=== PATIENT | male | born 1950 | race Caucasian/White ===

== ENCOUNTER 2017-07-14 08:30 | Outpatient (RCR) | payer MEDICARE, OTHER, SELFPAY ==
--- NOTE | 2017-03-30 15:08 | HP.PTEVAL_ITS ---
Patient's Visit Information LILIYA BOCANEGRA is a 67 year old M referred to Physical Therapy by Out of Town Doctor NAFISA GRAFF with a diagnosis of RIGHT LUMBAR RADICULOPATHY , LUMBAR FACET ARTHROPATHY. Date of Evaluation: 03/30/17 Physical Therapist: Tushar Hinson PT, - Visit Plan Frequency: 1x/Week Duration: 4 Weeks Plan: DLS,POSTUTAL EX'S,LE FLEXABLITY,STRENGTHENING FOR HEP - Subjective Subjective: This 67 y/o male presents to physical therapy with lumbar radiculopathy and facet arthrophy. Patient h/o lumbar disctomy/laminectomy 3 times . Patient underwent s/p lumbar fusion with minnie and screws of L-3-5 done October 08 done by at [facility]. Patient d/c to home walking progam,then able to lift 30#. Patient conts to have pain legs left greater to right with diffuse pain.patient did x-rays - looked good. Symptoms sitting,standing ,lidfting. Symptoms better with walking. Patient c/o parathesia/tingling BLE feet worse in left.Patient symptoms worse with carrying something with increasing symptoms with parathesia 1 hour,then gets better.Bowel/bladder good. Sleeping good. Coughing/sneezing -. Prior PT in past.No tuuama. 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 SOCIAL: . HOBBIES : hunting [employer] - Pain Bilateral Back Pain Intensity (Out of 10): 0 Pain Intensity Range: 10 Bilateral Lower Extremity Pain Intensity (Out of 10): 3 Pain Intensity Range: 10 - Objective POSTURE: mild foward posture. NEURO: c/o poarathesia/tingling,reflexes L3-4,L4- 5 1/3,L5-S1 2/3,diminished light touch. GAIT:normal velia reciprocal pattern. FLAXABLITY: hams mod tight. LUMBAR ROM: flexion min/mod loss, extension mod loss,side glides min/mod loss. SYMMTRIES: align. PALAPTION: MILD TENDERNES PARASPINALS. SKIN: incsion well approximate - Special Tests L/S Slump test left side: Negative L/S Slump test right side: Negative L/S Left Straight Leg Raise: Negative L/S Right Straight Leg Raise: Negative - Goals Goal 1:: Independant with HEP Goal Time Frame: 4-6 Weeks Goal 2:: Independant with posture /body mechaniics Goal Time Frame: 4-6 Weeks Goal 3:: Patient decrease leg pain by 50% or greater to improve function. Goal Time Frame: 4-6 Weeks Goal 4:: Patient increase strength of transvers/multifidas to good to improve ADLS and job demands . Goal Time Frame: 4-6 Weeks Goal 5:: Patient be able to perform ADL'S ob demands for function of recovery Goal Time Frame: 4-6 Weeks - Rehabilitation Potential Physical Therapy Diagnosis: This patient underwent s/p lumbar surgery fusion October 2016 with weakness of core muscles and leg weakness left along with pain and parathesia feet thus could benifit from skilled PT Rehabilitation Potential: Good - Anticipated Interventions Patient/Client Instruction: Educate patient on: Condition, Plan of Care For the Purpose of:: To decrease pain, To increase ROM, To improve muscle performance and motor function, To improve ability to perform ADL's, To increase tolerance to activity/condition/position, To improve performance and independence with ADL's, To improve ability of physical actions for home/ community/work/leisure, To improve health of tissue, To decrease soft tissue restriction, To increase flexibility/ROM, To improve self management, To prevent re-injury, To improve ability to perform tasks related to life management Therapeutic Exercise to Include: Strength training, Body mechanics, Postural training, Flexibilty training, Kraig Exercises For the Purpose of:: To decrease pain, To increase ROM, To improve muscle performance and motor function, To improve ability to perform ADL's, To improve performance and independence with ADL's, To improve ability of physical actions for home/community/work/leisure, To decrease soft tissue restriction, To increase flexibility/ROM, To improve self management, To prevent re-injury, To improve ability to perform tasks related to life management IF ES: Yes Cryotherapy (ice pack, ice massage): Yes Thermo therapy (hot pack): Yes For the Purpose of:: To decrease pain, To decrease swelling/inflammation, To improve nutrient delivery to tissue, To increase oxygenation perfusion Thank you for the opportunity to evaluate your patient. For Medicare and Medicare HMO plans, please review the plan of care and approve it. It will need to be FAXED BACK to us at [phone] for Medicare purposes. Please let me know if there are questions or concerns regarding this plan of care. Physician Signature: Date:
--- NOTE | 2017-07-14 09:42 | HP.PTDCSUM_ITS ---
HP - PT D/C Summary It has been my pleasure to treat LILIYA BOCANEGRA under orders from [facility] of [facility] Doctor, NAFISA GRAFF for the diagnosis of RIGHT LUMBAR RADICULOPATHY , LUMBAR FACET ARTHROPATHY for a total of 6 visit(s). Discharge Date: Please see the following information for a summary of their discharge status. - Subjective Subjective: Doing well ..Doing ex's on own. Able to get back to prior level of activity. - Pain Bilateral Back Pain Intensity (Out of 10): 0 Bilateral Lower Extremity Pain Intensity (Out of 10): 0 - Objective Objective/Function: POSTURE: WFL. GAIT: NORMAL ARACELY. MMT: QUADS/HAMS 4/5, HIP 4-/5,ANKLE 5/5. LUMBAR ROM: FLEXION MOD LOSS,EXT MOD LOSS. FLEXABLITY:MIN / MOD LOSS HAM. INSTRUCTED HEP MODIFIED AT HOME. WITH APPROPRIATE INSTRUCTION - Goals Goal 1:: Independant with HEP Goal Progress: Goal Met Goal 2:: Independant with posture /body mechaniics Goal Progress: Goal Met Goal 3:: Patient decrease leg pain by 50% or greater to improve function. Goal Progress: Goal Met Goal 4:: Patient increase strength of transvers/multifidas to good to improve ADLS and job demands . Goal Progress: Goal Met Goal 5:: Patient be able to perform ADL'S ob demands for function of recovery Goal Progress: Goal Met - Plan Plan: D/C - D/C Information If there are questions or concerns regarding this patient's physical therapy, please feel free to call me at [phone]. Thank you for the referral of this patient. Sincerely, Tushar Hinson, PT,
== END 2017-07-14 19:00 | disposition home or self-care (01) ==
LOC: PT 08:30
PROVIDERS: Family Provider Internal Medicine; PCP Internal Medicine
DX: M54.16 Radiculopathy, lumbar region (principal); M12.88 Other specific arthropathies, not elsewhere classified, other specified site
CPT/HCPCS: 97110; 97162; 97530; G8978; G8979; G8980

== ENCOUNTER 2018-02-01 19:03 | Emergency (ER) | payer MEDICARE, OTHER, SELFPAY ==
[2018-02-01 19:04] VITALS: BP 135/85; PULSE 60; RESP 12; TEMP 36.6; O2SAT 96; BMI 25.7
[2018-02-01 19:18] VITALS: BP 132/80; PULSE 65; RESP 12; O2SAT 97
--- NOTE | 2018-02-01 19:34 | EKG12_ITS ---
Test Reason : CP Blood Pressure : / mmHG Vent. Rate : 059 BPM Atrial Rate : 059 BPM P-R Int : 150 ms QRS Dur : 096 ms QT Int : 436 ms P-R-T Axes : 053 065 036 degrees QTc Int : 431 ms Sinus bradycardia Otherwise normal ECG Confirmed by MARIYA DUENAS, STANLEY ([id number]), news copy editor MURRAY CHAPARRO ([id number]) on 02/07/2018 3:38:29 PM Referred By: JADON Confirmed By:STANLEY MERAZ MD
--- NOTE | 2018-02-01 19:40 | RAD_ITS ---
STUDY: X-RAY CHEST REASON FOR EXAM: Male, 67 years old. Chest pain TECHNIQUE: PA and lateral views of the chest. COMPARISON: October 26, 2013 FINDINGS: There are monitoring devices. The lungs are clear. There is stable elevation of the right hemidiaphragm.. There is no demonstrated pleural abnormality. Normal size heart. Normal mediastinum and dora. Normal visualized pulmonary arteries. Normal visualized aortic arch and descending thoracic aorta. Normal visualized thoracic spine. There are stable left rib fractures. There is no demonstrated abnormality of the visualized soft tissue structures of the upper abdomen. RAD/Chest PA and Lateral IMPRESSION: Degenerative changes, as described above. No demonstrated acute cardiopulmonary process. Electronically Signed: Oliver Infante MD at 20:18 EDT , Service support ,
[2018-02-01 19:49] LABS: Absolute Lymphocyte Count 1.67 X10^3/ul (0.83-4.51); Absolute Neutrophil Count 2.8 X10^3/uL (2.0-7.7); Basophil# 0.13 X10^3/uL; Basophil% 2.4 % (0-1); Eosinophil# 0.16 X10^3/uL; Hematocrit 41.2 % (40-54); Lymphocyte # 1.67 X10^3/ul (4.0); Lymphocyte % 30.8 % (19-41); Mean Corpuscular Hgb 30.8 pg (27.0-32.0); Mean Corpuscular Volume 90.5 fL (80-94); Mean Platelet Vol. 9.4 fl (6.2-12.0); Monocyte# 0.62 X10^3/uL; Monocyte% 11.4 % (0-10); Neutrophil # 2.84 X10^3/uL (2.7-7.7); Neutrophil % 52.4 % (47-70); Platelet Count 230 K/mm3 (150-450); RBC Distribution Width CV 13.2 % (11.6-14.6); RBC Distribution Width SD 43.4 fl (35.1-43.9); Red Blood Count 4.55 M/mm3 (4.6-6.2); White Blood Count 5.4 K/mm3 (4.4-11.0)
[2018-02-01 19:50] LABS: POSITIVE COUNT NO; POSITIVE DIFFERENTIAL NO; POSITIVE MORPHOLOGY NO
[2018-02-01 19:56] LABS: International Normalized Ratio 0.9; Prothrombin Time (Protime)PT. 12.5 SECONDS (11.7-14.9)
[2018-02-01 19:57] LABS: Partial Thromboplast Time 29.1 Seconds (24.1-36.2)
--- NOTE | 2018-02-01 20:02 | ED.VISSUMM ---
- ER Visit Summary Date of Service: 02/01/18 Chief Complaint: Chest pain History of Present Illness: The patient is a 67 M intermittent chest tightness since yesterday. Pain would travel to the right and then to the left. No pain in the arms. No dyspnea, nausea, diaphoresis. States symptoms last for 2 hours and go away. Last onset of symptoms was 3 PM, lasting 2 hours. Patient takes baby aspirins in the morning, states prior to arrival took a full dose aspirin along with 2 nitroglycerin. Intermittent lightheaded symptoms since yesterday. No syncopal episodes. No recent vomiting or diarrhea. History of coronary disease with end STEMI x2, last was more than 5 years ago. 2 stents. Followed by [facility], Dr. Auguste. Stents were placed at [facility]. No recent travel, surgery, or immobilizations. No history of PE or DVT. History of hypercholesterolemia. No diabetes or hypertension. Currently symptoms are resolved. Physical Examination: General: Alert and oriented ?3, no acute distress HEENT: Normocephalic, atraumatic. Moist mucosa membranes Neck: supple, nontender. Cardiovascular: Regular rate and rhythm, no murmurs Respiratory: Normal breath sounds, symmetric, no distress Abdomen: Soft, nontender, nondistended Extremities: Nontender, no edema, pulses intact ?4 Neuro: no focal neurological deficits. Test Results: EKG: Sinus rate of [address] or T wave changes. Hemoglobin 14. Creatinine 0.85. Troponin #1 0.015. Troponin II 0.052. INR 0.9. PTT 29.1. Chest x-ray negative. Emergency Department Course and Treatment: Patient symptom-free on arrival. EKG sinus rhythm no ST changes. Patient took aspirin at home. Initial cardiac workup negative. Patient does have risk factors, I discussed with him falls in the moderate risk range. Recommended admission for further evaluation. However he states he did not want to stay in the hospital. However he was in agreement's for repeat troponin. 3-hour draw was obtained, results was elevated indeterminate range at 0.052. We discussed with the patient, he remained symptom-free. He was given Lovenox. Heart scores a 6. PAULA score is 5. He would like to go to [facility] where his previous cardiac cath and stents have been placed. Currently on page for discussion. Discussed with patient account liaison Dr. Gongora who accepts the transfer. Treatment Plan: [] Disposition: Plan transfer Impression: 1. Anginal chest pain 2. Elevated troponin This note was generated with [employer] dictation software. It may contain incorrect words, spelling, and punctuation that were not noted in review of the chart prior to signing ED Disposition - Plan for ED Patient: Disposition: [facility] - Main Chief Complaint: Chest Pain Diagnosis: Anginal chest pain at rest, Elevated troponin Referrals: Aquiles Rosado MD [Primary Care Provider] -
[2018-02-01 20:25] LABS: Anion Gap 7 (5-15); BUN 15 mg/dL (7-18); BUN/Creat Ratio 17.7 RATIO (10-20); Calcium,Total 8.9 mg/dL (8.5-10.1); Chloride 108 mmol/L (98-107); Creatinine, Serum 0.85 mg/dL (0.70-1.30); EST Glomerular Filtration Rate 96 mL/min (>60); Est Glom Filt Rate - Afr Amer 117 mL/min (>60); Estimated Creatinine Clearance 97.92 ml/min; Glucose 83 mg/dL (74-106); Sodium Level 140 mmol/L (136-145)
[2018-02-01 20:30] VITALS: BP 121/77; PULSE 62; RESP 15; O2SAT 96
[2018-02-01 21:34] VITALS: BP 125/72; PULSE 57; RESP 15; O2SAT 96
[2018-02-01 22:26] VITALS: BP 134/77; PULSE 55; RESP 16; O2SAT 96
[2018-02-01] MEDS: Enoxaparin 100 MG/ML Syringe 90 MG SC (22:48)
[2018-02-01 22:49] VITALS: BP 118/74; PULSE 57; RESP 18; O2SAT 99
--- NOTE | 2018-02-01 23:44 | NURSING ---
ACCEPTED TO [facility] BED J53 BED REPORT
[2018-02-02 00:32] VITALS: BP 132/85; PULSE 73; RESP 15; O2SAT 99
== END 2018-02-02 00:34 | disposition short-term general hospital (02) ==
PROVIDERS: Emergency Provider Emergency Medicine; Family Provider Family Medicine; PCP Family Medicine
DX: I25.119 Atherosclerotic heart disease of native coronary artery with unspecified angina pectoris (principal); R07.89 Other chest pain; R79.89 Other specified abnormal findings of blood chemistry; I25.2 Old myocardial infarction; E78.00 Pure hypercholesterolemia, unspecified; Z95.5 Presence of coronary angioplasty implant and graft; Z79.82 Long term (current) use of aspirin; Z79.899 Other long term (current) drug therapy
CPT/HCPCS: 71046; 80048; 84484; 85025; 85610; 85730; 93005; 96372; 99285; A4216

== ENCOUNTER 2018-02-07 19:23 | Emergency (ER) | payer OTHER, MEDICARE, SELFPAY ==
[2018-02-07] VITALS (8 sets, daily range): BP systolic 111–146; BP diastolic 65–94; PULSE 59–67; RESP 16–18; TEMP 37; O2SAT 94–100; BMI 27.7
--- NOTE | 2018-02-07 19:31 | ED.RN ---
RN CALLED FOR EKG, PULLED OLD EKGS FOR
--- NOTE | 2018-02-07 20:00 | EKG12_ITS ---
Test Reason : CP Blood Pressure : / mmHG Vent. Rate : 065 BPM Atrial Rate : 065 BPM P-R Int : 148 ms QRS Dur : 096 ms QT Int : 428 ms P-R-T Axes : 045 046 046 degrees QTc Int : 445 ms Normal sinus rhythm Normal ECG Confirmed by SHELLEY DUENAS, NELLI ([id number]), editor trade journal MURRAY CHAPARRO ([id number]) on 02/10/2018 1:35:52 PM Referred By: SHANEL Confirmed By:NELLI ROSA MD
--- NOTE | 2018-02-07 20:09 | RAD_ITS ---
STUDY: X-RAY CHEST REASON FOR EXAM: Male, 67 years old. Chest pain, status post stent placement. TECHNIQUE: February 01, 2018. COMPARISON: None. FINDINGS: The lungs are clear and expanded. There is chronic scarring of the right costophrenic angle. There is no pleural effusion. Normal size heart. Normal mediastinum and dora. Normal visualized pulmonary arteries. Normal visualized aortic arch and descending thoracic aorta. Old healed left rib fractures are noted. Soft tissues are unremarkable. RAD/Chest 1 View (Portable) IMPRESSION: No acute process. Electronically Signed: Jes Contreras MD at 20:53 EDT Tel , Service support ,
[2018-02-07 20:20] LABS: Absolute Lymphocyte Count 1.41 X10^3/ul (0.83-4.51); Absolute Neutrophil Count 2.3 X10^3/uL (2.0-7.7); Basophil% 2.2 % (0-1); Eosinophil# 0.26 X10^3/uL; Eosinophils% 5.7 % (0-5); Hematocrit 41.2 % (40-54); Hemoglobin 14.1 g/dl (13.0-16.5); Lymphocyte # 1.41 X10^3/ul (4.0); Lymphocyte % 30.7 % (19-41); Mean Corp Hgb Conc 34.2 g/gl (32-36); Mean Corpuscular Volume 90.5 fL (80-94); Mean Platelet Vol. 9.4 fl (6.2-12.0); Monocyte# 0.53 X10^3/uL; Monocyte% 11.5 % (0-10); Neutrophil # 2.29 X10^3/uL (2.7-7.7); Neutrophil % 49.9 % (47-70); POSITIVE COUNT NO; POSITIVE DIFFERENTIAL NO; POSITIVE MORPHOLOGY NO; Platelet Count 217 K/mm3 (150-450); RBC Distribution Width CV 13.4 % (11.6-14.6); RBC Distribution Width SD 43.8 fl (35.1-43.9); Red Blood Count 4.55 M/mm3 (4.6-6.2); White Blood Count 4.6 K/mm3 (4.4-11.0)
[2018-02-07] MEDS: 0.9% Normal Saline 1,000 ML 150 ML IV (20:24)
[2018-02-07] MEDS: Aspirin 81 MG TAB.CHEW 324 MG PO (20:24)
[2018-02-07 20:31] LABS: Anion Gap 7 (5-15); BUN 19 mg/dL (7-18); BUN/Creat Ratio 20.7 RATIO (10-20); Chloride 106 mmol/L (98-107); Creatinine, Serum 0.92 mg/dL (0.70-1.30); EST Glomerular Filtration Rate 88 mL/min (>60); Est Glom Filt Rate - Afr Amer 106 mL/min (>60); Estimated Creatinine Clearance 82.65 ml/min; Glucose 81 mg/dL (74-106); Sodium Level 140 mmol/L (136-145)
[2018-02-07] MEDS: Nitroglycerin Oint 1 INCH PACKET TRANSDERM. (20:35)
--- NOTE | 2018-02-07 21:14 | ED.DCSUM_ITS ---
- ER Visit Summary Date of Service: 02/07/18 Chief Complaint: [Chest pain] History of Present Illness: The patient is a 67 M [presents with complaint of chest pain that started at 9 AM this morning. Patient states that pain initially started while at rest. Patient took a nitroglycerin which immediately resolved his discomfort however an hour later it came back. Patient took a second nitroglycerin which again resolved his pain. This afternoon patient started having pain once again and he took 3 nitro at home but it did not completely resolve his pain so he presents to the ER for further evaluation. Patient tells me that he did have a cardiac stent placed 1 week ago at the [facility]. Patient has had one other prior stent as well. Patient does have a history of coronary artery disease, hypertension, high cholesterol. Patient denies recent travel or surgery.] Physical Examination: [HEENT-PERRLA, EOMI. Cranial nerves II through XII grossly intact. TMs clear. Mucous membranes moist. No adenopathy. Cardiovascular-regular rate and rhythm without murmur or ectopy Lungs-clear to auscultation, chest wall stable without crepitus or subcu emphysema Abdomen-normoactive bowel sounds, soft, nontender, no rebound or rigidity, no peritoneal signs. Extremities-intact ?4, normal range of motion, normal pulses, atraumatic] Test Results: [EKG obtained arrival shows sinus rhythm with a ventricular rate of 65 bpm with no acute ST segment changes.] CBC with differential was normal. Chemistries unremarkable. Troponin was slightly elevated at 0.066 Emergency Department Course and Treatment: [And received aspirin in the emergency department as well as 1 sublingual nitroglycerin tablet which resolved his pain and he had an inch of Nitropaste placed to the anterior chest wall.] Treatment Plan: [Patient will require admission however he is requesting transfer to [facility] where he had his stent placed 1 week ago. Plan will be discussed case with [facility] and transfer patient to their facility] Disposition: [Transfer] Impression: [Chest pain-rule out acute coronary syndrome] This note was generated with [employer] dictation software. It may contain incorrect words, spelling, and punctuation that were not noted in review of the chart prior to signing ED Disposition - Plan for ED Patient: Chief Complaint: Chest Pain Referrals: Aquiles Rosado MD [Primary Care Provider] -
== END 2018-02-07 22:58 | disposition short-term general hospital (02) ==
LOC: ED 20:04
PROVIDERS: Emergency Provider Emergency Medicine; Family Provider Family Medicine; PCP Family Medicine
DX: R07.9 Chest pain, unspecified (principal); I25.10 Atherosclerotic heart disease of native coronary artery without angina pectoris; I10 Essential (primary) hypertension; E78.00 Pure hypercholesterolemia, unspecified; Z95.5 Presence of coronary angioplasty implant and graft; Z79.82 Long term (current) use of aspirin; Z79.899 Other long term (current) drug therapy
CPT/HCPCS: 71045; 80048; 84484; 85025; 93005; 96360; 96361; 99285; J7030; A4216

== ENCOUNTER 2018-03-22 14:51 | Emergency (ER) | payer OTHER, MEDICARE, SELFPAY ==
[2018-03-22 14:52] VITALS: BP 158/89; BP 164/106; PULSE 60; PULSE 65; RESP 14; RESP 18; TEMP 36.8; O2SAT 98; O2SAT 99; BMI 25.9
--- NOTE | 2018-03-22 15:10 | RAD_ITS ---
STUDY: X-RAY CHEST REASON FOR EXAM: Male, 68 years old. Chest pain. TECHNIQUE: Single AP portable view of the chest. COMPARISON: 10/26/2013, 02/01/2018, 02/07/2018.. FINDINGS: The lungs are clear and expanded. Stable chronic scarring in the right costophrenic angle. No gross effusions. Normal size heart. Normal mediastinum and dora. Normal visualized pulmonary arteries. Normal visualized aortic arch and descending thoracic aorta. Normal visualized thoracic spine. Normal visualized ribs, clavicles, and shoulders. Old healed left rib fractures are noted. Soft tissues are unremarkable. RAD/Chest 1 View (Portable) IMPRESSION: No acute process. Electronically Signed: Charanjit Wilks MD at 16:10 EST , Service support ,
--- NOTE | 2018-03-22 15:10 | EKG12_ITS ---
Test Reason : CP Blood Pressure : / mmHG Vent. Rate : 063 BPM Atrial Rate : 063 BPM P-R Int : 144 ms QRS Dur : 098 ms QT Int : 422 ms P-R-T Axes : 053 062 048 degrees QTc Int : 431 ms Normal sinus rhythm Normal ECG Confirmed by MARIYA DUENAS, STANLEY ([id number]), senior editor MURRAY CHAPARRO ([id number]) on 03/25/2018 1:20:11 PM Referred By: JOSELUIS Confirmed By:STANLEY MERAZ MD
[2018-03-22] MEDS: 0.9% Normal Saline 1,000 ML 150 ML IV (15:18)
[2018-03-22] MEDS: Aspirin 81 MG TAB.CHEW 243 MG PO (15:18)
--- NOTE | 2018-03-22 15:20 | ED.DCSUM_ITS ---
- ER Visit Summary Date of Service: 03/22/18 Chief Complaint: Chest pain History of Present Illness: The patient is a 68 M with history of coronary artery disease and a total of 4 stents. He had 2 stents placed in January of this year. Patient presents with a one-week history of intermittent upper abdominal pain with some pressure radiation into the lower sternum. He states these episodes would last approximately half an hour and then spontaneously resolved. They did not seem to be brought on by activity and in fact with exertion he did not have significant symptoms. He has not had shortness of breath. This morning he woke up with pressure across the upper abdomen that has persisted throughout the day. It is not changed with food. It does not change with exertion. Physical Examination: Blood pressure is 164/106, otherwise vitals are normal. Patient sitting upright in bed no acute distress. Head neck unremarkable. Heart is regular rate and rhythm. Lung sounds are clear. There is no reproducible chest wall tenderness. Abdomen is soft with tenderness in epigastric as well as in the right upper quadrant regions. There is no guarding or rebound. Active bowel sounds are noted throughout. Test Results: EKG is sinus at 63 with no sign of acute ischemia. CBC, chemistries, LFTs, and lipase are normal. Troponin is less than 0.015. Portable chest x-ray per my reading shows chronic changes only. Emergency Department Course and Treatment: Patient had taken 1 tab of baby aspirin this morning. He is given an additional 243 mg now. Patient's pain is atypical for cardiac etiology. He will be started on antacid to see if this improves his symptoms. He is to return for worsening symptoms or any concerns. Treatment Plan: [] Disposition: Discharge Impression: 1. Atypical chest pain 2. Epigastric pain This note was generated with [employer] dictation software. It may contain incorrect words, spelling, and punctuation that were not noted in review of the chart prior to signing ED Disposition - Plan for ED Patient: Chief Complaint: Chest Pain Referrals: Aquiles Rosado MD [Primary Care Provider] -
[2018-03-22 15:30] LABS: Absolute Lymphocyte Count 1.36 X10^3/ul (0.83-4.51); Basophil% 1.6 % (0-1); Eosinophil# 0.23 X10^3/uL; Eosinophils% 3.7 % (0-5); Hematocrit 46.3 % (40-54); Hemoglobin 15.5 g/dl (13.0-16.5); Lymphocyte # 1.36 X10^3/ul (4.0); Mean Corp Hgb Conc 33.5 g/gl (32-36); Mean Corpuscular Hgb 30.9 pg (27.0-32.0); Mean Corpuscular Volume 92.2 fL (80-94); Mean Platelet Vol. 9.4 fl (6.2-12.0); Monocyte% 8.1 % (0-10); Neutrophil # 3.98 X10^3/uL (2.7-7.7); Neutrophil % 64.4 % (47-70); POSITIVE COUNT NO; POSITIVE DIFFERENTIAL NO; POSITIVE MORPHOLOGY NO; Platelet Count 242 K/mm3 (150-450); RBC Distribution Width CV 12.9 % (11.6-14.6); RBC Distribution Width SD 43.1 fl (35.1-43.9); Red Blood Count 5.02 M/mm3 (4.6-6.2); White Blood Count 6.2 K/mm3 (4.4-11.0)
[2018-03-22 15:33] LABS: AST(SGOT) 36 U/L (15-37); Alanine Aminotransfer ALT/SGPT 40 U/L (16-61); Albumin, Serum 4.3 g/dL (3.2-5.0); Alkaline Phosphatase 62 U/L (45-117); Anion Gap 7 (5-15); BUN 15 mg/dL (7-18); BUN/Creat Ratio 16.9 RATIO (10-20); Bilirubin, Direct 0.15 mg/dL (0.00-0.30); Chloride 104 mmol/L (98-107); Creatinine, Serum 0.88 mg/dL (0.70-1.30); EST Glomerular Filtration Rate 92 mL/min (>60); Est Glom Filt Rate - Afr Amer 111 mL/min (>60); Estimated Creatinine Clearance 93.32 ml/min; Globulin 3.6 g/dL (2.2-4.2); Glucose 89 mg/dL (74-106); Lipase 131 U/L (73-393); Potassium 3.8 mmol/L (3.5-5.1); Protein, Total 7.9 g/dL (6.4-8.2); Sodium Level 138 mmol/L (136-145)
--- NOTE | 2018-03-22 15:39 | ED.DEP ---
ED Disposition - Plan for ED Patient: Disposition: Home or Assisted Living Chief Complaint: Chest Pain Instructions: ED Chest Pain Atypical Unkn Cause, ED Epigastric Pain UKO Prescriptions: Omeprazole [Prilosec] 20 mg PO DAILY #30 capsule Referrals: Aquiles Rosado MD [Primary Care Provider] - 1 Week
[2018-03-22 15:52] VITALS: BP 162/94; PULSE 67; RESP 18; O2SAT 97
--- NOTE | 2018-03-22 15:52 | ED.RN ---
PT GIVEN WRITTEN AND VERBAL DISCHARGE INSTRUCTIONS ANSD HOME GOING PRESCRIPTIONS. PT VERBALIZES UNDERSTANDING AND DENIES ANY FURTHER QUESTIONS. PT IV D/C AND COVERED WITH 2X2 GAUZE DRESSING AND PAPER TAPE. PT DRESSES SELF AND AMBUALTES OUT OF DEPT BY SELF. PT TO RETURN FOR ANY NEW OR WORSENED SX.
== END 2018-03-22 15:54 | disposition home or self-care (01) ==
PROVIDERS: Emergency Provider Emergency Medicine; Family Provider Family Medicine; PCP Family Medicine
DX: R07.89 Other chest pain (principal); R10.13 Epigastric pain; I25.10 Atherosclerotic heart disease of native coronary artery without angina pectoris; Z95.5 Presence of coronary angioplasty implant and graft; I25.2 Old myocardial infarction; I10 Essential (primary) hypertension; Z87.891 Personal history of nicotine dependence; Z79.82 Long term (current) use of aspirin; Z79.51 Long term (current) use of inhaled steroids; Z79.899 Other long term (current) drug therapy
CPT/HCPCS: 71045; 80048; 80076; 83690; 84484; 85025; 93005; 96360; 99285; J7030; A4216

== ENCOUNTER → 2018-04-04 06:57 | Outpatient (CLI) | payer OTHER, MEDICARE, SELFPAY ==
[2018-03-22 14:52] VITALS: BMI 25.9
--- NOTE | 2018-04-04 07:02 | CT_ITS ---
STUDY: CT MAXILLOFACIAL SINUSES REASON FOR EXAM: Male, 68 years old. Recurrent chronic sinusitis. Nasal drainage. RADIATION DOSAGE (If Supplied By Facility): CTDIvol = ( 33.06 ) mGy, DLP = ( 833.85 ) mGycm TECHNIQUE: The patient was scanned in a multi detector CT scanner. High resolution axial imaging was performed without the administration of intravenous contrast material. Sagittal and coronal images were reconstructed. Individualized dose optimization techniques were used for this CT. COMPARISON: None. FINDINGS: FRONTAL SINUSES: Normal aeration, without mucosal inflammatory disease. ETHMOIDAL SINUSES: Minimal mucosal thickening of the ethmoid sinuses. MAXILLARY SINUSES: Mucosal thickening along the superior medial aspect of the maxillary sinus bilaterally causing compromise of the ostiomeatal complexes. SPHENOIDAL SINUSES: Normal aeration, without mucosal inflammatory disease. There is patency of the bilateral maxillary infundibuli with normal uncinate processes, ethmoid bullae, and hiatus semilunaris. Normal bilateral middle turbinates. Normal bilateral inferior turbinates. Normal midline nasal septum. There is patency of the bilateral nasal airways. The visualized osseous structures are normal. The visualized bilateral orbital contents are normal. The patient is status post right parietal craniotomy. CT/Sinus/Facial Bone IMPRESSION: Mucosal thickening of the ethmoid sinuses and the superior medial aspects of the maxillary sinuses bilaterally. Electronically Signed: Rakesh Ledesma MD at 15:46 EST Tel [phone], Service support ,
--- OUTSIDE RECORDS SUMMARY | 2018-05-28 04:56 | XMS RPT_ITS ---
:1950 Author Organization OH[facility] Care Team Providers Name Role Phone DOCTOR, OUT OF TOWN Attending Unavailable Liliya Bland Primary Care Unavailable DOCTOR, OUT OF TOWN Attending Unavailable ANITA SHEEHAN Referring Unavailable Liliya Bland Primary Care Unavailable Sanjeev Farrell Attending Unavailable Aquiles Rosado Primary Care Unavailable Bursley, Aquiles Primary Care Unavailable Ungur, Remus Attending Unavailable Burswilber, Aquiles Primary Care Unavailable Esha Wooten Attending Unavailable Michelle, Amari Attending Unavailable Amari Martinez Referring Unavailable Nikhil Rosadoe Primary Care Unavailable OSVALDO, NAFISA Maria () Referring Unavailable OSVALDO, NAFISA PATEL) Referring Unavailable JOSE CHU Attending Unavailable OSVALDO, NAFISA Maria () Attending Unavailable OSVALDO, NAFISA Maria () Referring Unavailable TIA DAY (YUMIKO-Juan David) Referring Unavailable VENESSA CANTU (YUMIKO) Referring Unavailable OSVALDO, NAFISA Maria () Referring Unavailable MARTA SILVA Attending Unavailable OSVALDO, NAFISA Maria () Referring Unavailable OSVALDO, NAFISA Maria () Referring Unavailable OSVALDO, NAFISA PATEL) Referring Unavailable OSVALDO, NAFISA PATEL) Admitting Unavailable OSVALDO, NAFISA PATEL) Attending Unavailable OSVALDO, NAFISA PATEL) Referring Unavailable JOSE CHU Attending Unavailable MCCORMACK, CYNTHIA Referring Unavailable ISAIASLEYLISA) Attending Unavailable BURSLEYLISA) Referring Unavailable OSVALDO, NAFISA PATEL) Attending Unavailable OSVALDO, NAFISA PATEL) Referring Unavailable OSVALDO, NAFISA PATEL) Referring Unavailable MCCORMACK, CYNTHIA Attending Unavailable CARMELLA DARBY (YUMIKO) Attending Unavailable ISAIASLEYLISA) Referring Unavailable OSVALDO, NAFISA PATEL) Attending Unavailable OSVALDO, NAFISA Maria () Referring Unavailable SAJAN DAVILA (PA) Referring Unavailable JOSE CHU Attending Unavailable DE, TWYLA Attending Unavailable DE, TWYLA Attending Unavailable MIYASAKA, DESIREE Admitting Unavailable LE SANJEEV Referring Unavailable BAJZERLISA Attending Unavailable BAJZERILSA Admitting Unavailable UNGUR, REMUS A Referring Unavailable SIMPFENDORFER, RUBENS C Attending Unavailable SIMPFENDORFER, RUBENS C Attending Unavailable SIMPFENDORFER, RUBENS C Referring Unavailable BURSLISA MOODY) Attending Unavailable LISA ROSADO) Referring Unavailable BAJZERNIKHILER Referring Unavailable BAJZER, NIKHILER Referring Unavailable WILMA RENEE (YUMIKO) Referring Unavailable KATIE CAREY (PA) Attending Unavailable WILMA RENEE (PA) Referring Unavailable LISA RIVERS Attending Unavailable LISA RIVERS Referring Unavailable JOSE CHU Attending Unavailable LISA ROSADO () Attending Unavailable LISA ROSADO () Referring Unavailable ETIENNE LOWE Attending Unavailable SIMPFENDORFER, RUBENS C Referring Unavailable JOSE CHU Attending Unavailable ISIAH MCGRATH Referring Unavailable ISIAH MCGRATH Attending Unavailable NAFISA RILEY () Referring Unavailable NAFISA RILEY Referring Unavailable LISA ROSADO Primary Care Unavailable PROBLEMS PROBLEMS DATE TYPE CONDITION / CODE ATTENDING STATUS SOURCE 02/25/20 Active Presence of coronary KATIE CAREY Active [facility] 18 angioplasty implant and M ([facility]) [facility] Main graft / Z95.5(ICD-10) [place] Repository 02/11/20 Active Hyperlipidemia, unspecified SIMPFENDORFER, Active [facility] 18 / E78.5(ICD-10) RUBENS C [facility] Main [place] Repository 02/11/20 Active Acute ischemic heart SIMPFENDORFER, Active [facility] 18 disease, unspecified / RUBENS C Clinic Main I24.9(ICD-10) [place] Repository 02/11/20 Active Essential (primary) SIMPFENDORFER, Active [facility] 18 hypertension / I10(ICD-10) RUBENS C [facility] Main [place] Repository 02/04/20 Active Other specified health BAJZER, Active [facility] 18 status / Z78.9(ICD-10) [facility] Main [place] Repository 02/04/20 Active Coronary angioplasty status BAJZER, Active [facility] 18 / Z98.61(ICD-10) [facility] Main [place] Repository 02/04/20 Active Atherosclerotic heart BAJZER, Active [facility] 18 disease of tunica-biloxi coronary [facility] Main artery with unstable angina [place] pectoris / I25.110(ICD-10) Repository 12/28/19 Active Benign prostatic hyperplasia DE, TWYLA Active [facility] 18 with lower urinary tract Clinic Main symptoms / N40.1(ICD-10) [place] Repository 12/28/19 Active Other obstructive and reflux DE, TWYLA Active [facility] 18 uropathy / N13.8(ICD-10) Clinic Main [place] Repository 12/22/19 Active Pain in right shoulder / NA Active [facility] 18 M25.511(ICD-10) Clinic Main [place] Repository 10/15/19 Active Unknown / UNK(Unknown) CYNTHIA MCCORMACK Active [place] 18 [facility] Main [place] Repository 08/02/19 Admitting Unknown / UNK(Unknown) NA Active [place] [address] [facility] Repository 04/06/20 Active Contact with and (suspected) NA Active [place] [address] exposure to other hazardous Clinic Main metals / Z77.018(ICD-10) [place] Repository 01/19/20 Active Attention-deficit NA Active [facility] 17 hyperactivity disorder, Clinic Main unspecified type / [place] F90.9(ICD-10) Repository 01/19/20 Active 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 / Clinic Main Z15.89(ICD-10) [place] Repository 01/19/20 Active 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 / Clinic Main E72.12(ICD-10) [place] Repository 07/21/19 Active Anxiety disorder, NA [facility] 15 unspecified / F41.9(ICD-10) Clinic Main [place] Repository 03/25/20 Active Nocturia / R35.1(ICD-10) NA Active [facility] Main [place] Repository 09/25/19 Active Mixed hyperlipidemia / NA Active [place] [address] E78.2(ICD-10) Clinic Main [place] Repository 09/25/19 Active Other oysterman (current) NA Active [place] [address] drug therapy / Clinic Main Z79.899(ICD-10) [place] Repository 08/12/19 Active Other cervical disc OSVALDO, Active [facility] 18 degeneration at C5-C6 level NAFISA PATEL) Clinic Main / M50.322(ICD-10) [place] Repository 08/12/19 Active Other specified OSVALDO, Active [place] 18 postprocedural states / NAFISA PATEL) Clinic Main Z98.890(ICD-10) [place] Repository 08/12/19 Active Other cervical disc OSVALDO, Active [facility] 18 degeneration at C4-C5 level NAFIAS PATEL) Clinic Main / M50.321(ICD-10) [place] Repository 08/12/19 Active Other acute postprocedural OSVALDO, Active [facility] 18 pain / G89.18(ICD-10) NAFISA PATEL) Clinic Main [place] Repository 08/12/19 Active Encounter for other OSVALDO, Active [facility] 18 preprocedural examination / NAFISA PATEL) [facility] Main Z01.818(ICD-10) [place] Repository 08/12/19 Active 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, 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 NAFISA PATEL) [facility] Main Staphylococcus aureus / [place] Z22.322(ICD-10) Repository 08/11/19 Active Atherosclerotic heart OSVALDO, Active [place] [address] disease of tunica-biloxi coronary NAFISA PATEL) [facility] Main artery without angina [place] pectoris / I25.10(ICD-10) Repository 07/23/19 Unknown M54.16 - Radiculopathy, DOCTOR, OUT OF Active [place] [address] lumbar region / [facility] Community M54.16(ICD-10) Hospital Repository 05/12/19 Active Cervical disc disorder with NA Active [place] [address] radiculopathy, unspecified [facility] Main cervical region / [place] M50.10(ICD-10) Repository 06/28/19 Active Radiculopathy, lumbar region NA Active [facility] / M54.16(ICD-10) [facility] Main [place] Repository PROCEDURES PROCEDURES No Procedure Records FoundRESULTS RESULTS PROGRESS Observed: 04/18/2018 Status: COMPLETED Source: [place] 1:02 PM [facility] REPOSITORY HNO ID: [id number] Author: Isiah Mcgrath Service: (none) Author Type: Physician Type: Progress Notes Filed: 04/18/2018 1:10 PM Note Text: [facility] [place] Johnny Machado Department of Cardiovascular Medicine SECTION OF PREVENTIVE CARDIOLOGY Liliya Encinas 04/18/2018 CURRENT MEDS: Current Outpatient Prescriptions: aspirin, enteric coated (ADULT LOW DOSE ASPIRIN) 81 mg EC tablet Take 1 tablet by mouth once daily. B-Complex Plus (Pure Encapsulations) Take 1 capsule by mouth daily with food. ezetimibe (ZETIA) 10 mg tablet Take 1 tablet by mouth once daily. Homocysteine [place] ([employer] for [employer]) Take 2 capsules by mouth daily with food. Magnesium Citrate 150mg 90 ct. (Pure Encapsulations) Take 3 capsules daily. (Patient taking differently: Take 2 capsules by mouth once daily. ) nitroglycerin sublingual (NITROQUICK) 0.4 mg SL tablet Dissolve 1 tablet under the tongue every 5 minutes as needed. ONE [place] (Pure Encapsulation) Take 3 capsules by mouth daily with food. (Patient taking differently: Take 2 capsules by mouth daily with food. ) oxybutynin ER (DITROPAN XL) 10 mg 24 hr tablet Take 1 tablet by mouth daily at bedtime. [employer] Multivitamin (Pure Encapsulations) Take 1 capsule by mouth daily with food. sertraline (ZOLOFT) 50 mg tablet Take 1 tablet by mouth once daily. The Whole Probiotic ([employer]) Take 1 capsule by mouth once daily. Treatment 3-6 months ticagrelor (BRILINTA) 90 mg tablet Take 1 tablet by mouth twice daily. Vitamin D3 Liquid (Pure Encapsulations) Take 3-5 drops daily, with meals pravastatin (PRAVACHOL) 10 mg tablet Take 1 tablet by mouth once daily. No current facility-administered medications for this visit. ALLERGIES: ALLERGIES Allergen Reactions - Metoprolol Itching, Other: See Comments insomnia CHIEF COMPLAINT: Liliya Encinas is a 68 year old White male seen today. Patient presents with: Coronary Artery Disease Hyperlipidemia HISTORY OF PRESENT CARDIOVASCULAR ILLNESS: Mr. Guerrero is a 68 year-old gentleman with a history of coronary artery disease status post PCI in 2011, 2013, and January 2018; mixed hyperlipidemia complicated by statin intolerance, and prior hypertension who is referred for evaluation of his lipid abnormalities. He has had a history of statin intolerance as outlined below. He was unable to tolerate atorvastatin or rosuvastatin, but has now been on ezetimibe for over one year with good control of his cholesterol (LDL < 70 mg/dL). He is following a heart-healthy diet and exercising regularly. He had PCI in January and has not had any further angina since then. He denies having any angina, dyspnea, orthopnea, PND, peripheral edema, dizziness, syncope, or palpitations. Review of systems is otherwise negative. Mr. Encinas has the following cardiac risk factors: Lipid Abnormality: Positive (diagnosed on 05/03/2011) STATIN INTOLERANCE: Statin: Yes Niacin: No Fibrates: No Zetia: No Bile Acid Sequestrants: No Atorvastatin as low as 10 mg from 12/27/2013 to 03/09/2014 caused severe myalgias and leg pains. When he stopped it his symptoms resolved. Rosuvastatin 20 mg 12/03/2015 until 07/20/2016 but it also caused severe myalgias. When he stopped it his symptoms resolved. Prediabetes: No Diabetes: No Hypertension: Unknown Current Exercise Frequency: Three to five times per week Menopausal State: N/A RELATED DISEASE HISTORY: CAD: Yes (PTCA/Stent on 05/03/2011, [place] on 05/03/2013, PTCA/Stent on 05/03/2013, PTCA/Stent on 01/31/2018) PVD: None CVD: None Arrhythmias:None Valve Disease: Negative Rheumatological Disease: Negative Kidney Disease: Negative Liver Disease: Negative CHF: Negative Pancreatitis: Negative Transplant: None Psychological: Negative Sleep Apnea: Negative FAMILY AND SOCIAL HISTORY: Family history of Coronary Artery Disease: Positive (male < 55; female < 65) (Father had coronary artery disease as early as 60 if not earlier.) Lifestyle 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 Quit 05/03/1977. Types: Cigarettes Has the patient used tobacco in the last year? No Alcohol Use: Approximately 7.5 oz/week [which includes 5 Glasses of Wine (5oz) per week] REVIEW OF SYSTEMS: CONSTITUTIONAL: No Changes. HEENT:Negative for frequent or significant headaches, No changes in hearing or vision, no nose bleeds or other nasal problems RESPIRATORY: Negative for cough, hemoptysis, wheezing, COPD, dyspnea or shortness of breath CARDIOVASCULAR: Negative for chest pain, leg swelling, hypertension, CHF or palpitations GI: No nausea, vomiting, or diarrhea MUSCULOSKELETAL: Negative for joint pain or swelling, back pain or muscle pain SKIN: Negative for lesions, rash, and itching PSYCH: Negative for sleep disturbance, mood disorder and recent psychosocial stressors. HEMATOLOGY/LYMPHOLOGY Negative for prolonged bleeding, bruising easily or swollen nodes ENDOCRINE: Negative for cold or heat intolerance, polyuria, polydipsia and goiter NEURO: No history of headaches, syncope, paralysis, seizures or tremors PHYSICAL EXAMINATION: Vital Signs and General Appearance BP 133/78 (BP Site: Left Arm, BP Position: Sitting, BP Cuff Size: Regular Adult) Pulse 64 Ht 184.5 cm (6' 0.64) Wt 88.5 kg (195 lb) BMI 25.98 kg/m? Average Blood Pressure: 133/78 JOSETTE Right: Not specified JOSETTE Left: Not specified BMI 25.98 kg/(m2) Waist measurement is No waist measurement recorded. Well developed, well nourished, alert, active 68 year old male in no apparent distress. Eyes: Normal, PERRLA Skin: Xanthomas - No Neck: Normal, supple with full range of motion Lungs: Clear to auscultation and percussion Abdomen: Soft, non-tender. Bowel sounds normal. No masses or organomegaly. Lower Extremities: Normal exam of the extremities Neurological:Oriented to person, place and time and No focal motor or sensory deficits Pulses: Carotid: Left: 2+, Right: 2+, Bruit: No Posterior Tibial:Right 2+, Posterior Tibial:Left 2+, Femoral: Left: 2+, Right: 2+, Bruit: No Dorsalis Pedis:Right 2+, Dorsalis Pedis:Left 2+, Heart Sounds: S1: Normal S2: Normal S3: Absent S4: Absent Murmurs: Systolic Murmur Present: No Diastolic Murmur Present: No CLINICAL TESTING RESULTS: I have personally reviewed the following: Ejection Fraction: Unknown (Source: Not specified) SF 36 Quality of Life Assessment: Physical Component Summary: 50.2 Mental Component Summary: 58.[address] Rivers for an opinion regarding statin intolerance, and my final recommendations will be communicated back to the requesting physician by way of shared medical record or letter. IMPRESSION/PLAN: Mr. Guerrero is a 68 year-old gentleman with a history of coronary artery disease status post PCI in 2011, 2013, and January 2018; mixed hyperlipidemia complicated by statin intolerance, and prior hypertension who is referred for evaluation of his lipid abnormalities. Statin therapy is indicated with LDL goal < 70 mg/dL since he has had a history of multivessel coronary artery disease. However, thus far he has been unable to tolerate atorvastatin and rosuvastatin despite low dosing. He is tolerating ezetimibe with no issues. After discussion, we have agreed to try a low intensity, hydrophilic statin such as pravastatin. If tolerated then this may be progressively increased and may ultimately replace ezetimibe if needed. If he has recurrent myalgias then we can consider a PCSK9 inhibitor vs enrollment in the CLEAR trial in the future. After discussing risks vs benefits he has agreed to trying pravastatin. -Start pravastatin 10 mg daily. -Continue ezetimibe 10 mg daily. -Repeat lipid panel, LFTs, and CK in three months. -Check Lp(a) along with next labs. -If pravastatin is tolerated then we can increase the dose further at the next visit. -Continue all other medications including DAPT, as prescribed by Dr. Rivers. -Phase II cardiac rehab to be done locally MEDICATION CHANGES: Start pravastatin 10 mg daily FOLLOW UP: We recommend a 3 month follow up in Preventive Cardiology. Isiah Mcgrath MD, MPH Staff Bulk Filler [facility] [place] [facility] PATIENT EDUCATION Topic: Hyperlipidemia Instruction Provided To: Patient Barriers: None Motivation to Learn: Interested Methods of Instruction: Verbal instruction and/or handouts. Patient Leans Best By: Multiple Methods Patient Verbalized: Understanding ECG COMPLETE W Observed: 04/18/2018 Status: F Source: [place] INTERPRETATION 11:29 AM [facility] REPOSITORY NAME : LILIYA ENCINAS PID : [id number] : 1950 Gender : Male Race : ORD : [id number] Procedure Date : Apr 18 2018 11:29:48 Edit Date : Apr 19 2018 13:50:10 Diagnosis:SINUS BRADYCARDIA OTHERWISE NORMAL ECG Confirmed by MD RADHA, PhD, LATANYA ([id number]) on 04/19/2018 1:50:06 PM Ventricular Rate : 55 BPM Atrial Rate : 55 BPM P-R Interval : 142 ms QRS Duration : 96 ms Q-T Interval : 424 ms QTC Calculation(Bezet) : 405 ms P [place] : 60 degrees R [place] : 66 degrees T [place] : 54 degrees Test Reason : Location : 314 : J14 Overread By : MD RADHA, PhD,LATANYA Edited By : MD RADHA, PhD,LATANYA Referred By : ISIAH MCGRATH Acquired by : EMILIE CASTELLANOS Observed: 04/18/2018 Status: COMPLETED Source: [place] 11:00 AM [facility] REPOSITORY Office Visit (CARD P) LILIYA ENCINAS ([id number]) 1950 M Date Time Provider Department 04/18/18 11:00 AM ISIAH MCGRATH During your visit today, we recorded the following information about you: Pulse Blood pressure Weight Height 64/minute 133/78 88.5 kg 1.845 m Isiah Mcgrath MD 04/18/2018 1:10 PM Signed [facility] [place] [facility] Machado Department of Cardiovascular Medicine SECTION OF PREVENTIVE CARDIOLOGY Liliya Encinas 04/18/2018 CURRENT MEDS: Current Outpatient Prescriptions: aspirin, enteric coated (ADULT LOW DOSE ASPIRIN) 81 mg EC tablet Take 1 tablet by mouth once daily. B-Complex Plus (Pure Encapsulations) Take 1 capsule by mouth daily with food. ezetimibe (ZETIA) 10 mg tablet Take 1 tablet by mouth once daily. Homocysteine [place] ([employer] for [employer]) Take 2 capsules by mouth daily with food. Magnesium Citrate 150mg 90 ct. (Pure Encapsulations) Take 3 capsules daily. (Patient taking differently: Take 2 capsules by mouth once daily. ) nitroglycerin sublingual (NITROQUICK) 0.4 mg SL tablet Dissolve 1 tablet under the tongue every 5 minutes as needed. ONE [place] (Pure Encapsulation) Take 3 capsules by mouth daily with food. (Patient taking differently: Take 2 capsules by mouth daily with food. ) oxybutynin ER (DITROPAN XL) 10 mg 24 hr tablet Take 1 tablet by mouth daily at bedtime. [employer] Multivitamin (Pure Encapsulations) Take 1 capsule by mouth daily with food. sertraline (ZOLOFT) 50 mg tablet Take 1 tablet by mouth once daily. The Whole Probiotic ([employer]) Take 1 capsule by mouth once daily. Treatment 3-6 months ticagrelor (BRILINTA) 90 mg tablet Take 1 tablet by mouth twice daily. Vitamin D3 Liquid (Pure Encapsulations) Take 3-5 drops daily, with meals pravastatin (PRAVACHOL) 10 mg tablet Take 1 tablet by mouth once daily. No current facility-administered medications for this visit. ALLERGIES: ALLERGIES Allergen Reactions - Metoprolol Itching, Other: See Comments insomnia CHIEF COMPLAINT: Liliya Encinas is a 68 year old White male seen today. Patient presents with: Coronary Artery Disease Hyperlipidemia HISTORY OF PRESENT CARDIOVASCULAR ILLNESS: Mr. Guerrero is a 68 year-old gentleman with a history of coronary artery disease status post PCI in 2011, 2013, and January 2018; mixed hyperlipidemia complicated by statin intolerance, and prior hypertension who is referred for evaluation of his lipid abnormalities. He has had a history of statin intolerance as outlined below. He was unable to tolerate atorvastatin or rosuvastatin, but has now been on ezetimibe for over one year with good control of his cholesterol (LDL < 70 mg/dL). He is following a heart-healthy diet and exercising regularly. He had PCI in January and has not had any further angina since then. He denies having any angina, dyspnea, orthopnea, PND, peripheral edema, dizziness, syncope, or palpitations. Review of systems is otherwise negative. Mr. Encinas has the following cardiac risk factors: Lipid Abnormality: Positive (diagnosed on 05/03/2011) STATIN INTOLERANCE: Statin: Yes Niacin: No Fibrates: No Zetia: No Bile Acid Sequestrants: No Atorvastatin as low as 10 mg from 12/27/2013 to 03/09/2014 caused severe myalgias and leg pains. When he stopped it his symptoms resolved. Rosuvastatin 20 mg 12/03/2015 until 07/20/2016 but it also caused severe myalgias. When he stopped it his symptoms resolved. Prediabetes: No Diabetes: No Hypertension: Unknown Current Exercise Frequency: Three to five times per week Menopausal State: N/A RELATED DISEASE HISTORY: CAD: Yes (PTCA/Stent on 05/03/2011, [place] on 05/03/2013, PTCA/Stent on 05/03/2013, PTCA/Stent on 01/31/2018) PVD: None CVD: None Arrhythmias:None Valve Disease: Negative Rheumatological Disease: Negative Kidney Disease: Negative Liver Disease: Negative CHF: Negative Pancreatitis: Negative Transplant: None Psychological: Negative Sleep Apnea: Negative FAMILY AND SOCIAL HISTORY: Family history of Coronary Artery Disease: Positive (male < 55; female < 65) (Father had coronary artery disease as early as 60 if not earlier.) Lifestyle 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 Quit 05/03/1977. Types: Cigarettes Has the patient used tobacco in the last year? No Alcohol Use: Approximately 7.5 oz/week [which includes 5 Glasses of Wine (5oz) per week] REVIEW OF SYSTEMS: CONSTITUTIONAL: No Changes. HEENT:Negative for frequent or significant headaches, No changes in hearing or vision, no nose bleeds or other nasal problems RESPIRATORY: Negative for cough, hemoptysis, wheezing, COPD, dyspnea or shortness of breath CARDIOVASCULAR: Negative for chest pain, leg swelling, hypertension, CHF or palpitations GI: No nausea, vomiting, or diarrhea MUSCULOSKELETAL: Negative for joint pain or swelling, back pain or muscle pain SKIN: Negative for lesions, rash, and itching PSYCH: Negative for sleep disturbance, mood disorder and recent psychosocial stressors. HEMATOLOGY/LYMPHOLOGY Negative for prolonged bleeding, bruising easily or swollen nodes ENDOCRINE: Negative for cold or heat intolerance, polyuria, polydipsia and goiter NEURO: No history of headaches, syncope, paralysis, seizures or tremors PHYSICAL EXAMINATION: Vital Signs and General Appearance BP 133/78 (BP Site: Left Arm, BP Position: Sitting, BP Cuff Size: Regular Adult) Pulse 64 Ht 184.5 cm (6' 0.64) Wt 88.5 kg (195 lb) BMI 25.98 kg/m? Average Blood Pressure: 133/78 JOSETTE Right: Not specified JOSETTE Left: Not specified BMI 25.98 kg/(m2) Waist measurement is No waist measurement recorded. Well developed, well nourished, alert, active 68 year old male in no apparent distress. Eyes: Normal, PERRLA Skin: Xanthomas - No Neck: Normal, supple with full range of motion Lungs: Clear to auscultation and percussion Abdomen: Soft, non-tender. Bowel sounds normal. No masses or organomegaly. Lower Extremities: Normal exam of the extremities Neurological:Oriented to person, place and time and No focal motor or sensory deficits Pulses: Carotid: Left: 2+, Right: 2+, Bruit: No Posterior Tibial:Right 2+, Posterior Tibial:Left 2+, Femoral: Left: 2+, Right: 2+, Bruit: No Dorsalis Pedis:Right 2+, Dorsalis Pedis:Left 2+, Heart Sounds: S1: Normal S2: Normal S3: Absent S4: Absent Murmurs: Systolic Murmur Present: No Diastolic Murmur Present: No CLINICAL TESTING RESULTS: I have personally reviewed the following: Ejection Fraction: Unknown (Source: Not specified) SF 36 Quality of Life Assessment: Physical Component Summary: 50.2 Mental Component Summary: 58.[address] Rivers for an opinion regarding statin intolerance, and my final recommendations will be communicated back to the requesting physician by way of shared medical record or letter. IMPRESSION/PLAN: Mr. Guerrero is a 68 year-old gentleman with a history of coronary artery disease status post PCI in 2011, 2013, and January 2018; mixed hyperlipidemia complicated by statin intolerance, and prior hypertension who is referred for evaluation of his lipid abnormalities. Statin therapy is indicated with LDL goal < 70 mg/dL since he has had a history of multivessel coronary artery disease. However, thus far he has been unable to tolerate atorvastatin and rosuvastatin despite low dosing. He is tolerating ezetimibe with no issues. After discussion, we have agreed to try a low intensity, hydrophilic statin such as pravastatin. If tolerated then this may be progressively increased and may ultimately replace ezetimibe if needed. If he has recurrent myalgias then we can consider a PCSK9 inhibitor vs enrollment in the CLEAR trial in the future. After discussing risks vs benefits he has agreed to trying pravastatin. -Start pravastatin 10 mg daily. -Continue ezetimibe 10 mg daily. -Repeat lipid panel, LFTs, and CK in three months. -Check Lp(a) along with next labs. -If pravastatin is tolerated then we can increase the dose further at the next visit. -Continue all other medications including DAPT, as prescribed by Dr. Rivers. -Phase II cardiac rehab to be done locally MEDICATION CHANGES: Start pravastatin 10 mg daily FOLLOW UP: We recommend a 3 month follow up in [facility]ive [facility]iology. Isiah Mcgrath MD, MPH Staff [facility] [facility] [place] [facility] PATIENT EDUCATION Topic: Hyperlipidemia Instruction Provided To: Patient Barriers: None Motivation to Learn: Interested Methods of Instruction: Verbal instruction and/or handouts. Patient Leans Best By: Multiple Methods Patient Verbalized: Understanding Referring Provider: SELF [200] Allergies As of Date: 04/18/2018 Noted Allergy Reaction METOPROLOL 10/31/2013 9 - Itching 14 - Other: See Comments Comments: insomnia Date Reviewed: 04/18/2018 Reviewed by: Isiah Mcgrath - Fully Assessed Reason for Visit: Coronary Artery Disease [530] Hyperlipidemia [245] Reason For Visit History Recorded Primary Visit Diagnosis:ASCVD (arteriosclerotic cardiovascular disease) [I25.10] Other Visit Diagnoses:S/P drug eluting coronary stent placement [Z95.5] Mixed hyperlipidemia [E78.2] Statin intolerance [Z78.9] Family history of early CAD [Z82.49] Order(s):pravastatin (PRAVACHOL) 10 mg tabletTake 1 tablet by mouth once daily.Disp: 30 tabletRfl: 11 COMP METABOLIC PANEL [SQCMP] Order #: [id number] FUTURE LIPID PANEL BASIC [SQLIPB] Order #: [id number] FUTURE CK CREATINE KINASE [SQCK] Order #: [id number] FUTURE LIPOPROTEIN (A) [SQLPA] Order #: [id number] FUTURE Prescriptions as of 04/18/2018 Sig: ASPIRIN 81 MG TABLET,DELAYED * Take 1 tablet by mouth once d* OTC NUTRITIONAL SUPPLEMENT Take 1 capsule by mouth daily* EZETIMIBE 10 MG TABLET Take 1 tablet by mouth once d* OTC NUTRITIONAL SUPPLEMENT Take 2 capsules by mouth valentin* OTC NUTRITIONAL SUPPLEMENT Take 3 capsules daily. Patient taking differently: Take 2 capsules by mouth once* NITROGLYCERIN 0.4 MG SUBLINGU* Dissolve 1 tablet under the t* OTC NUTRITIONAL SUPPLEMENT Take 3 capsules by mouth valentin* Patient taking differently: Take 2 capsules by mouth valentin* OXYBUTYNIN CHLORIDE ER 10 MG * Take 1 tablet by mouth daily * OTC NUTRITIONAL SUPPLEMENT Take 1 capsule by mouth daily* SERTRALINE 50 MG TABLET Take 1 tablet by mouth once d* OTC NUTRITIONAL SUPPLEMENT Take 1 capsule by mouth once * TICAGRELOR 90 MG TABLET Take 1 tablet by mouth twice * OTC NUTRITIONAL SUPPLEMENT Take 3-5 drops daily, with me* PRAVASTATIN 10 MG TABLET Take 1 tablet by mouth once d* Medication notes this encounter EVOLOCUMAB 140 MG/ML SUBCUTANEOUS PEN INJECTOR >> Deepti Abrams Ma 04/18/2018 11:48 AM $600 Problem List As Of Date 04/18/2018 Noted Resolved PERS HX TOBACCO USE [Z87.891] INVALID FOR* Abdominal pain, epigastric [R10.13] INVALID FOR*02/18/2010 Attention deficit disorder with hyperactivity [*INVALID FOR* NOCTURIA [R35.1] INVALID FOR* Pain in soft tissues of limb [M79.609] INVALID FOR*02/18/2010 Empyema without mention of fistula [J86.9] INVALID FOR*03/31/2017 Pain in joint, shoulder region [M25.519] INVALID FOR*04/06/2017 Esophagitis, unspecified [K20.9] INVALID FOR*04/06/2017 Acute gastritis without mention of hemorrhage [*INVALID FOR*03/31/2017 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 Tear of medial cartilage or meniscus of knee, c*INVALID FOR*04/06/2017 Lumbar radiculopathy [M54.16] INVALID FOR* ED (erectile dysfunction) [N52.9] INVALID FOR* Low testosterone [E34.9] INVALID FOR*03/31/2017 Benign neoplasm of colon [D12.6] INVALID FOR*03/31/2017 SUMMARY [V999.95] INVALID FOR* More... Unstable angina (HCC) [I20.0] INVALID FOR* More... Dyslipidemia (high LDL; low HDL) [E78.5] INVALID FOR* More... Sinus infection [J32.9] INVALID FOR*12/12/2011 More... Need for prophylactic measure [Z29.9] INVALID FOR*03/31/2017 More... Tubular adenoma of colon [D12.6] INVALID FOR* Presence of drug coated stent in posterior desc*INVALID FOR* ASCVD (arteriosclerotic cardiovascular disease)*INVALID FOR*03/31/2017 ASHD (arteriosclerotic heart disease) [I25.10] INVALID FOR* Right carpal tunnel syndrome [G56.01] INVALID FOR*04/06/2017 Atherosclerotic heart disease [I25.10] INVALID FOR* More... Primary hypertension [I10] INVALID FOR* More... Diarrhea [R19.7] INVALID FOR*03/31/2017 More... Non-ST elevation myocardial infarction (NSTEMI)*INVALID FOR* More... Presence of drug coated stent in left circumfle*INVALID FOR* Lumbar foraminal stenosis [M99.83] INVALID FOR*03/31/2017 Lumbar spondylosis [M47.816] INVALID FOR* Neural foraminal stenosis of lumbar spine [M99.*INVALID FOR* More... Right lumbar radiculopathy [M54.16] INVALID FOR* Status post insertion of drug-eluting stent int*INVALID FOR* Anxiety [F41.9] INVALID FOR* Thoracic or lumbosacral neuritis or radiculitis*INVALID FOR*04/06/2017 Lumbosacral spondylosis without myelopathy [M47*INVALID FOR* Hypertriglyceridemia [E78.1] INVALID FOR*03/31/2017 Rotator cuff syndrome of right shoulder [M75.10*INVALID FOR*04/06/2017 Family history of ischemic heart disease [Z82.4*INVALID FOR* Multiple vessel coronary artery disease [I25.10]INVALID FOR*03/31/2017 Statin intolerance [Z78.9] INVALID FOR* More... 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 Cervical radiculopathy [M54.12] INVALID FOR* S/P cervical disc replacement [Z98.890] INVALID FOR* Acute postoperative pain [G89.18] INVALID FOR* More... Benign prostatic hyperplasia with urinary obstr*INVALID FOR* ACS (acute coronary syndrome) ([facility]) [I24.9] INVALID FOR* More... Coronary artery disease involving tunica-biloxi chaves*INVALID FOR* More... Post PTCA [Z98.61] INVALID FOR* More... Chest pain [R07.9] INVALID FOR* More... Prescriptions ordered this encounter Disp Refills Start End PRAVASTATIN 10 MG TABLET 30 t* 11 04/18/2018 Route: ORAL Sig: Take 1 tablet by mouth once daily. Medications Discontinued During This Encounter evolocumab (FRED SANTILLAN) 140 m* 2 Pen 11 02/16/2018 04/18/2018 Class: [facility],FL,PA Specialty RX Route: SUBCUTANEOUS Sig: Inject 140 mg subcutaneously every 2 weeks. Disc: Cost of medication Disposition: Return in about 3 months (around 07/17/2018). Follow-up and Disposition History Recorded Classic SmartForms filed during this visit: Short Form 36 v1 Preventive Cardiology Encounter Status:Closed by ISIAH MCGRATH MD on 04/18/18 PROGRESS Observed: 04/12/2018 Status: COMPLETED Source: [place] 2:09 PM [facility] [place] REPOSITORY HNO ID: [id number] Author: Jose Chu V Service: (none) Author Type: Physician Type: Progress Notes Filed: 04/12/2018 3:47 PM Note Text: Patient presents with: Established Patient: 4 months post visit impingement syndrome right shoulder with injection given HPI: Liliya is a 68 year old male who presents for evaluation of shoulder pain for 2 weeks. The pain was the result of drawing his bow. The location is along the lateral aspect of the shoulder, with radiation to the mid brachium. The pain is described as a dull ache and sharp pain, intensity is 5/10 at its worse. The pain is intermittant in nature. The pain is relieved with rest, and aggravated with reaching, lifting and overhead movements. The pain wakes the patient at night. Over the counter NSAIDs do not improve the symptoms. MEDICATIONS: Current Outpatient Prescriptions on File Prior to Visit: aspirin, enteric coated (ADULT LOW DOSE ASPIRIN) 81 mg EC tablet Take 1 tablet by mouth once daily. B-Complex Plus (Pure Encapsulations) Take 1 capsule by mouth daily with food. ezetimibe (ZETIA) 10 mg tablet Take 1 tablet by mouth once daily. Homocysteine [place] ([employer]) Take 2 capsules by mouth daily with food. Magnesium Citrate 150mg 90 ct[address] (Pure Encapsulations) Take 3 capsules daily. (Patient taking differently: Take 2 capsules daily. ) nitroglycerin sublingual (NITROQUICK) 0.4 mg SL tablet Dissolve 1 tablet under the tongue every 5 minutes as needed. ONE [place] (Pure Encapsulation) Take 3 capsules by mouth daily with food. oxybutynin ER (DITROPAN XL) 10 mg 24 hr tablet Take 1 tablet by mouth daily at bedtime. [employer] Multivitamin (Pure Encapsulations) Take 1 capsule by mouth daily with food. sertraline (ZOLOFT) 50 mg tablet Take 1 tablet by mouth once daily. The Whole Probiotic ([employer]) Take 1 capsule by mouth once daily. Treatment 3-6 months ticagrelor (BRILINTA) 90 mg tablet Take 1 tablet by mouth twice daily. Vitamin D3 Liquid (Pure Encapsulations) Take 3-5 drops daily, with meals evolocumab (REPATHA SURECLICK) 140 mg/mL pnij Inject 140 mg subcutaneously every 2 weeks. (Patient not taking: Reported on 04/07/2018 ) predniSONE (DELTASONE) 10 mg tablet Take 4 tabs daily x5 days, then 2 tabs daily for 5 days, then 1 tab daily for 5 days. (Patient not taking: Reported on 04/12/2018 ) No current facility-administered medications on file prior to visit. ALLERGIES: Patient has no known allergies. HISTORIES: PAST MEDICAL HISTORY Diagnosis Date - Acute gastritis without mention of hemorrhage - ADHD (attention deficit hyperactivity disorder) on Lexapro - ASHD (arteriosclerotic heart disease) 04/05/2012 stent x2, Dr. 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 Riley - Testicular lesion right, s/p removal - Vitamin D insufficiency PAST SURGICAL HISTORY Procedure Laterality Date - CC PCI CORONARY INTERVENT 03/2013 X2 - COLONOSCOP W/ OR W/O [facility] SPEC TA and hyperplastic polyps removed. - COLONOSCOP W/ OR W/O [facility] SPEC 04/13/2017 Colonoscopy - Poor prep - 5 year follow up - COLONOSCOPY W/BX 09/11/11 repeat 5 years - EGD W/O [facility] SPECIMEN W/BX 08/26/07 - HEART SURGERY HX - PAST SURGICAL HISTORY OF removal of right testicle for pre cancer - PAST SURGICAL HISTORY OF 07/26/2006 right lung scrapping and cleaning for impiemia - PAST SURGICAL HISTORY OF remote sinus surgery - PAST SURGICAL HISTORY OF 03/22/2009 microdiscectomy- lumbar - PAST SURGICAL HISTORY OF 05/2009 cerebral meningioma - PAST SURGICAL HISTORY OF 07/2010 Micro discectomy low back - PAST SURGICAL HISTORY OF 07/2013 lumbar discectomy - PAST SURGICAL HISTORY OF Left 04/2015 ankle microfracture, fusion of forefoot - PAST SURGICAL HISTORY OF 2016 L3-L5 revision posterior decompression with TLIF - PAST SURGICAL HISTORY OF 2018 2 level cervical disc replacement - REPAIR ING HERNIA,5+Y/O,REDUCIBL right Hernia repair, inguinal - [facility] N/CARPAL TUNNEL SURG left Carpal tunnel decomp - [facility] N/CARPAL TUNNEL SURG Right 12/02/2016 Right carpal tunnel release - TRANSURETHRAL ELEC-SURG PROSTATECTOM 09/2007 - VASECTOMY Social History Marital status: Spouse name: Steph Years of education: Number of children: 5 Occupational History Occupation Employer Comment [employer]* Social History Main Topics Smoking status: Former Smoker Packs/day: 1.00 Years: 10.00 Types: Cigarettes Quit date: 05/03/1977 Smokeless tobacco: Never Used Alcohol use: Yes 7.5 oz/week Glasses of Wine (5oz): 5 per week Drug use: No PE: General: Well-appearing male in no acute distress. Vital Signs: There were no vitals taken for this visit. Skin: Intact to inspection and palpation. Psychiatric: Mood and affect appropriate. A and O x3. Musculoskeletal Exam: Gait and Station normal. Cervical spine: Normal ROM and normal to palpation. Bilateral upper extremities show equal motion of the elbows, and wrists. Right shoulder exam shows active forward flexion to 170, passively to 170; abduction to 170, IR to belt line, ER adduction was 70. Positive for Hawkin's and Neer's tests. Rotator cuff strength 5/5. Normal stability to testing. Normal tone. No pain to palpation of the AC joint. Positive pain to palpation of the bicipital groove. Neurologic Exam: Intact sensation and reflexes in both upper extremities. Vascular: 2+ radial pulses, both upper extremities. XRAYs: Show no fractures, subluxations, dislocations, or destructive lesions. IMPRESSION: Right shoulder subacromial impingement. RECOMMENDATIONS: order for PT entered The risk, benefits and alternatives of injection and no injection therapy were discussed. Personnel were discussed and the patient consented for an injection. The patient has been identified by name and birthdate. The injection site was identified, marked and prepped with a alcohol swab. Time out completed. The subacromial space was injected with a 25 gauge needle with 1cc triamcinolone (40mg), 2cc xylocaine plain 1% and 2cc marcaine plain 0.5%. The injection site was then dressed with a bandaid. The patient tolerated the injection well. The patient was instructed to call the office if any adverse local effects occurred or any if any questions or concerns arise. Jose Chu DO PROGRESS Observed: 04/12/2018 Status: COMPLETED Source: [place] 1:46 PM [facility] REPOSITORY HNO ID: [id number] Author: Vanessa Mcclure Ma Service: (none) Author Type: (none) Type: Progress Notes Filed: 04/12/2018 3:47 PM Note Text: Patient presents with: Established Patient: 4 months post visit impingement syndrome right shoulder with injection given AMB ROOMING INTAKE FLOWSHEET DATA Risk Screening Do you have concerns about personal safety or safety in the home?: No Pain Pain Score: 5/10 Pain Location: Shoulder-Right Description: (deep and dull) Duration Amount of Time: 2 Duration Units: Weeks Frequency: Continuous Intervention: Medication Patient states he started having pain in his left shoulder again about 2 weeks ago. Wants to discuss injection. Taking Tylenol during the day and Oxycodone at bedtime which he has for his back and neck pain. CNOV Observed: 04/12/2018 Status: COMPLETED Source: [place] 1:40 PM [facility] REPOSITORY Office Visit (UC) LILIYA ENCINAS ([id number]) 1950 M Date Time Provider Department 04/12/18 1:40 PM JOSE CHU During your visit today, we recorded the following information about you: Vanessa Mcclure Sheila 04/12/2018 3:47 PM Signed Patient presents with: Established Patient: 4 months post visit impingement syndrome right shoulder with injection given AMB ROOMING INTAKE FLOWSHEET DATA Risk Screening Do you have concerns about personal safety or safety in the home?: No Pain Pain Score: 5/10 Pain Location: Shoulder-Right Description: (deep and dull) Duration Amount of Time: 2 Duration Units: Weeks Frequency: Continuous Intervention: Medication Patient states he started having pain in his left shoulder again about 2 weeks ago. Wants to discuss injection. Taking Tylenol during the day and Oxycodone at bedtime which he has for his back and neck pain. Jose Chu DO 04/12/2018 3:47 PM Signed Patient presents with: Established Patient: 4 months post visit impingement syndrome right shoulder with injection given HPI: Liliya is a 68 year old male who presents for evaluation of shoulder pain for 2 weeks. The pain was the result of drawing his bow. The location is along the lateral aspect of the shoulder, with radiation to the mid brachium. The pain is described as a dull ache and sharp pain, intensity is 5/10 at its worse. The pain is intermittant in nature. The pain is relieved with rest, and aggravated with reaching, lifting and overhead movements. The pain wakes the patient at night. Over the counter NSAIDs do not improve the symptoms. MEDICATIONS: Current Outpatient Prescriptions on File Prior to Visit: aspirin, enteric coated (ADULT LOW DOSE ASPIRIN) 81 mg EC tablet Take 1 tablet by mouth once daily. B-Complex Plus (Pure Encapsulations) Take 1 capsule by mouth daily with food. ezetimibe (ZETIA) 10 mg tablet Take 1 tablet by mouth once daily. Homocysteine [place] ([employer]) Take 2 capsules by mouth daily with food. Magnesium Citrate 150mg 90 ct[address] (Pure Encapsulations) Take 3 capsules daily. (Patient taking differently: Take 2 capsules daily. ) nitroglycerin sublingual (NITROQUICK) 0.4 mg SL tablet Dissolve 1 tablet under the tongue every 5 minutes as needed. ONE [place] (Pure Encapsulation) Take 3 capsules by mouth daily with food. oxybutynin ER (DITROPAN XL) 10 mg 24 hr tablet Take 1 tablet by mouth daily at bedtime. [employer] Multivitamin (Pure Encapsulations) Take 1 capsule by mouth daily with food. sertraline (ZOLOFT) 50 mg tablet Take 1 tablet by mouth once daily. The Whole Probiotic ([employer]) Take 1 capsule by mouth once daily. Treatment 3-6 months ticagrelor (BRILINTA) 90 mg tablet Take 1 tablet by mouth twice daily. Vitamin D3 Liquid (Pure Encapsulations) Take 3-5 drops daily, with meals evolocumab (REPATHA SURECLICK) 140 mg/mL pnij Inject 140 mg subcutaneously every 2 weeks. (Patient not taking: Reported on 04/07/2018 ) predniSONE (DELTASONE) 10 mg tablet Take 4 tabs daily x5 days, then 2 tabs daily for 5 days, then 1 tab daily for 5 days. (Patient not taking: Reported on 04/12/2018 ) No current facility-administered medications on file prior to visit. ALLERGIES: Patient has no known allergies. HISTORIES: PAST MEDICAL HISTORY Diagnosis Date - Acute gastritis without mention of hemorrhage - ADHD (attention deficit hyperactivity disorder) on Lexapro - ASHD (arteriosclerotic heart disease) 04/05/2012 stent x2, Dr. 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 Riley - Testicular lesion right, s/p removal - Vitamin D insufficiency PAST SURGICAL HISTORY Procedure Laterality Date - CC PCI CORONARY INTERVENT 03/2013 X2 - COLONOSCOP W/ OR W/O [facility] SPEC TA and hyperplastic polyps removed. - COLONOSCOP W/ OR W/O [facility] SPEC 04/13/2017 Colonoscopy - Poor prep - 5 year follow up - COLONOSCOPY W/BX 09/11/11 repeat 5 years - EGD W/O [facility] SPECIMEN W/BX 08/26/07 - HEART SURGERY HX - PAST SURGICAL HISTORY OF removal of right testicle for pre cancer - PAST SURGICAL HISTORY OF 07/26/2006 right lung scrapping and cleaning for impiemia - PAST SURGICAL HISTORY OF remote sinus surgery - PAST SURGICAL HISTORY OF 03/22/2009 microdiscectomy- lumbar - PAST SURGICAL HISTORY OF 05/2009 cerebral meningioma - PAST SURGICAL HISTORY OF 07/2010 Micro discectomy low back - PAST SURGICAL HISTORY OF 07/2013 lumbar discectomy - PAST SURGICAL HISTORY OF Left 04/2015 ankle microfracture, fusion of forefoot - PAST SURGICAL HISTORY OF 2016 L3-L5 revision posterior decompression with TLIF - PAST SURGICAL HISTORY OF 2018 2 level cervical disc replacement - REPAIR ING HERNIA,5+Y/O,REDUCIBL right Hernia repair, inguinal - [facility] N/CARPAL TUNNEL SURG left Carpal tunnel decomp - [facility] N/CARPAL TUNNEL SURG Right 12/02/2016 Right carpal tunnel release - TRANSURETHRAL ELEC-SURG PROSTATECTOM 09/2007 - VASECTOMY Social History Marital status: Spouse name: Steph Years of education: Number of children: 5 Occupational History Occupation Employer Comment [employer]* Social History Main Topics Smoking status: Former Smoker Packs/day: 1.00 Years: 10.00 Types: Cigarettes Quit date: 05/03/1977 Smokeless tobacco: Never Used Alcohol use: Yes 7.5 oz/week Glasses of Wine (5oz): 5 per week Drug use: No PE: General: Well-appearing male in no acute distress. Vital Signs: There were no vitals taken for this visit. Skin: Intact to inspection and palpation. Psychiatric: Mood and affect appropriate. A and O x3. Musculoskeletal Exam: Gait and Station normal. Cervical spine: Normal ROM and normal to palpation. Bilateral upper extremities show equal motion of the elbows, and wrists. Right shoulder exam shows active forward flexion to 170, passively to 170; abduction to 170, IR to belt line, ER adduction was 70. Positive for Hawkin's and Neer's tests. Rotator cuff strength 5/5. Normal stability to testing. Normal tone. No pain to palpation of the AC joint. Positive pain to palpation of the bicipital groove. Neurologic Exam: Intact sensation and reflexes in both upper extremities. Vascular: 2+ radial pulses, both upper extremities. XRAYs: Show no fractures, subluxations, dislocations, or destructive lesions. IMPRESSION: Right shoulder subacromial impingement. RECOMMENDATIONS: order for PT entered The risk, benefits and alternatives of injection and no injection therapy were discussed. Personnel were discussed and the patient consented for an injection. The patient has been identified by name and birthdate. The injection site was identified, marked and prepped with a alcohol swab. Time out completed. The subacromial space was injected with a 25 gauge needle with 1cc triamcinolone (40mg), 2cc xylocaine plain 1% and 2cc marcaine plain 0.5%. The injection site was then dressed with a bandaid. The patient tolerated the injection well. The patient was instructed to call the office if any adverse local effects occurred or any if any questions or concerns arise. Jose Chu DO Referring Provider: SELF [200] Allergies As of Date: 04/12/2018 (No Known Allergies) Date Reviewed: 04/12/2018 Reviewed by: Vanessa Mcclure Ma - Fully Assessed Reason for Visit: Established Patient [175] Cmt: 4 months post visit impingement syndrome right shoulder with injection given Primary Visit Diagnosis:Impingement syndrome of shoulder region, right [M75.41] Order(s):CONSULT TO PHYSICAL THERAPY [9032] Order #: [id number]: 1 [] triamcinolone acetonide 40 mg injection (KENALOG 40)Disp: Rfl: Prescriptions as of 04/12/2018 Sig: ASPIRIN 81 MG TABLET,DELAYED * Take 1 tablet by mouth once d* OTC NUTRITIONAL SUPPLEMENT Take 1 capsule by mouth daily* EZETIMIBE 10 MG TABLET Take 1 tablet by mouth once d* OTC NUTRITIONAL SUPPLEMENT Take 2 capsules by mouth valentin* OTC NUTRITIONAL SUPPLEMENT Take 3 capsules daily. Patient taking differently: Take 2 capsules daily. NITROGLYCERIN 0.4 MG SUBLINGU* Dissolve 1 tablet under the t* OTC NUTRITIONAL SUPPLEMENT Take 3 capsules by mouth valentin* OXYBUTYNIN CHLORIDE ER 10 MG * Take 1 tablet by mouth daily * OTC NUTRITIONAL SUPPLEMENT Take 1 capsule by mouth daily* SERTRALINE 50 MG TABLET Take 1 tablet by mouth once d* OTC NUTRITIONAL SUPPLEMENT Take 1 capsule by mouth once * TICAGRELOR 90 MG TABLET Take 1 tablet by mouth twice * OTC NUTRITIONAL SUPPLEMENT Take 3-5 drops daily, with me* EVOLOCUMAB 140 MG/ML SUBCUTAN* Inject 140 mg subcutaneously * Patient not taking: Reported on 04/07/2018 PREDNISONE 10 MG TABLET Take 4 tabs daily x5 days, th* Patient not taking: Reported on 04/12/2018 Problem List As Of Date 04/12/2018 Noted Resolved PERS HX TOBACCO USE [Z87.891] INVALID FOR* Abdominal pain, epigastric [R10.13] INVALID FOR*02/18/2010 Attention deficit disorder with hyperactivity [*INVALID FOR* NOCTURIA [R35.1] INVALID FOR* Pain in soft tissues of limb [M79.609] INVALID FOR*02/18/2010 Empyema without mention of fistula [J86.9] INVALID FOR*03/31/2017 Pain in joint, shoulder region [M25.519] INVALID FOR*04/06/2017 Esophagitis, unspecified [K20.9] INVALID FOR*04/06/2017 Acute gastritis without mention of hemorrhage [*INVALID FOR*03/31/2017 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 Tear of medial cartilage or meniscus of knee, c*INVALID FOR*04/06/2017 Lumbar radiculopathy [M54.16] INVALID FOR* ED (erectile dysfunction) [N52.9] INVALID FOR* Low testosterone [E34.9] INVALID FOR*03/31/2017 Benign neoplasm of colon [D12.6] INVALID FOR*03/31/2017 SUMMARY [V999.95] INVALID FOR* More... Unstable angina (HCC) [I20.0] INVALID FOR* More... Dyslipidemia (high LDL; low HDL) [E78.5] INVALID FOR* More... Sinus infection [J32.9] INVALID FOR*12/12/2011 More... Need for prophylactic measure [Z29.9] INVALID FOR*03/31/2017 More... Tubular adenoma of colon [D12.6] INVALID FOR* Presence of drug coated stent in posterior desc*INVALID FOR* ASCVD (arteriosclerotic cardiovascular disease)*INVALID FOR*03/31/2017 ASHD (arteriosclerotic heart disease) [I25.10] INVALID FOR* Right carpal tunnel syndrome [G56.01] INVALID FOR*04/06/2017 Atherosclerotic heart disease [I25.10] INVALID FOR* More... Primary hypertension [I10] INVALID FOR* More... Diarrhea [R19.7] INVALID FOR*03/31/2017 More... Non-ST elevation myocardial infarction (NSTEMI)*INVALID FOR* More... Presence of drug coated stent in left circumfle*INVALID FOR* Lumbar foraminal stenosis [M99.83] INVALID FOR*03/31/2017 Lumbar spondylosis [M47.816] INVALID FOR* Neural foraminal stenosis of lumbar spine [M99.*INVALID FOR* More... Right lumbar radiculopathy [M54.16] INVALID FOR* Status post insertion of drug-eluting stent int*INVALID FOR* Anxiety [F41.9] INVALID FOR* Thoracic or lumbosacral neuritis or radiculitis*INVALID FOR*04/06/2017 Lumbosacral spondylosis without myelopathy [M47*INVALID FOR* Hypertriglyceridemia [E78.1] INVALID FOR*03/31/2017 Rotator cuff syndrome of right shoulder [M75.10*INVALID FOR*04/06/2017 Family history of ischemic heart disease [Z82.4*INVALID FOR* Multiple vessel coronary artery disease [I25.10]INVALID FOR*03/31/2017 Statin intolerance [Z78.9] INVALID FOR* More... 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 Cervical radiculopathy [M54.12] INVALID FOR* S/P cervical disc replacement [Z98.890] INVALID FOR* Acute postoperative pain [G89.18] INVALID FOR* More... Benign prostatic hyperplasia with urinary obstr*INVALID FOR* ACS (acute coronary syndrome) (HCC) [I24.9] INVALID FOR* More... Coronary artery disease involving tunica-biloxi chaves*INVALID FOR* More... Post PTCA [Z98.61] INVALID FOR* More... Chest pain [R07.9] INVALID FOR* More... Prescriptions ordered this encounter Disp Refills Start End TRIAMCINOLONE ACETONIDE 40 MG/ML PRASANNA* 04/12/2018 04/12/2018 Route: INTRABURSAL Encounter Status:Closed by JOSE CHU DO, V on 04/12/18 PROGRESS Observed: 04/07/2018 Status: COMPLETED Source: [place] 2:24 PM [facility] [place] REPOSITORY [facility] ID: [id number] Author: Etienne Lowe Service: (none) Author Type: Physician Type: Progress Notes Filed: 04/07/2018 5:18 PM Note Text: PERTINENT CARDIAC HISTORY ASHD - PCI FAY RCA 2011, NSTEMI PCI FAY OM3 10/14, PCI LAD 02/17, PCI ISR LAD 02/17 Non-cardiac chest pain HTN Hyperlipidemia - statin intolerance ADHERENCE TO GUIDELINES ROMELIA-I or ARB for HF with prior LVEF<40 (NQF 0081) - N/A ASA or Plavix for ASHD (NQF 0067) - declines Beta omar for ASHD with prior [place] or prior LVEF<40 (NQF 0070) - N/A Beta omar for HF with prior LVEF<40 (NQF 0083) - N/A ROMELIA-I or ARB for ASHD with DM or prior LVEF<40 (NQF 0066) - N/A Statin therapy for ASHD or FHL or DM - intolerance BMI documented and plan if >25 (NQF 0421) - lifestyle recommendation form Tobacco use screening and referral (NQF 0028) - lifestyle recommendation form Recommendation for whole food, plant based diet - lifestyle recommendation form CLINICAL IMPRESSION/PLAN: Liliya Encinas is doing well. He will have an ETT and will be referred to cardiac rehabilitation. I've encouraged him to continue his follow-up with functional medicine, if he desires, and with preventive cardiology to consider PCSK9 inhibitor therapy. He was reminded not to interrupt dual antiplatelet therapy. I will see him in 4 months or as needed. If there is increased chest pain or shortness of breath, he has been advised to contact me. Written and verbal health teaching given to patient, patient verbalizes understanding and agrees with treatment plan. DIAGNOSIS FOR VISIT: ASHD Hypertension HISTORY OF PRESENT ILLNESS Liliya Encinas returns for follow follow-up of his coronary disease. He presented to [place] [facility] in January with chest pain and underwent angiography. He was found to have a high-grade proximal LAD lesion which was stented. He had recurrent chest discomfort and follow- up study showed that he had a some plaque shift. A second stent was placed proximal to the initial one. Since that time, he has returned to normal activity. He would like to begin cardiac rehabilitation. He has been trying to cut down on his workload. He denies orthopnea, edema, syncope, palpitations, TIAs, amaurosis and claudication. He will be seen in preventive cardiology for consideration of repatha. He is currently tolerating Zetia. He has not been able to take statins. ALLERGIES: ALLERGIES No Known Allergies CURRENT OUTPATIENT MEDICATIONS: ezetimibe (ZETIA) 10 mg tablet Take 1 tablet by mouth once daily. sertraline (ZOLOFT) 50 mg tablet Take 1 tablet by mouth once daily. predniSONE (DELTASONE) 10 mg tablet Take 4 tabs daily x5 days, then 2 tabs daily for 5 days, then 1 tab daily for 5 days. oxybutynin ER (DITROPAN XL) 10 mg 24 hr tablet Take 1 tablet by mouth daily at bedtime. nitroglycerin sublingual (NITROQUICK) 0.4 mg SL tablet Dissolve 1 tablet under the tongue every 5 minutes as needed. ticagrelor (BRILINTA) 90 mg tablet Take 1 tablet by mouth twice daily. aspirin, enteric coated (ADULT LOW DOSE ASPIRIN) 81 mg EC tablet Take 1 tablet by mouth once daily. The Whole Probiotic ([employer]) Take 1 capsule by mouth once daily. 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 B-Complex Plus (Pure Encapsulations) Take 1 capsule by mouth daily with food. ONE [place] (Pure Encapsulation) Take 3 capsules by mouth daily with food. Magnesium Citrate 150mg 90 ct. (Pure Encapsulations) Take 3 capsules daily. [employer] Multivitamin (Pure Encapsulations) Take 1 capsule by mouth daily with food. Vitamin D3 Liquid (Pure Encapsulations) Take 3-5 drops daily, with meals evolocumab (REPATHA SURECLICK) 140 mg/mL pnij Inject 140 mg subcutaneously every 2 weeks. PHYSICAL EXAMINATION: VITAL SIGNS: BP 142/76 Pulse 69 Wt 194 lb 11.2 oz (88.3kg) Chest: Clear to auscultation. Trachea is midline. Air entry is equal. Cardiac: Regular rhythm. S1 and S2 are normal. PMI is nondisplaced. There is a soft systolic ejection murmur. Carotids are brisk without bruits. JVP is less than 10 cm. Abdomen: Soft and nontender. There are no pulsatile masses or bruits. No liver enlargement. Bowel sounds are active. Extremities: No edema. Pulses are intact and symmetrical. Recent cath films were reviewed with him. Recent echocardiogram was reviewed. Left ventricular function is normal. There is no significant valvular disease. Recent labs were reviewed. Recent LDL was 65. Electronically Signed: Etienne Lowe MD April 07, 2018 2:24 PM CC: Lisa Rosado MD CNOV Observed: 04/07/2018 Status: COMPLETED Source: [place] 1:45 PM [facility] REPOSITORY Office Visit (CAWSTR) LILIYA ENCINAS ([id number]) 1950 M Date Time Provider Department 04/07/18 1:45 PM ETIENNE LOWE CAWSTR During your visit today, we recorded the following information about you: Pulse Blood pressure Weight 69/minute 142/76 88.3 kg Etienne Lowe MD 04/07/2018 5:18 PM Signed PERTINENT CARDIAC HISTORY ASHD - PCI FAY RCA 2011, NSTEMI PCI FAY OM3 10/14, PCI LAD 02/17, PCI ISR LAD 02/17 Non-cardiac chest pain HTN Hyperlipidemia - statin intolerance ADHERENCE TO GUIDELINES ROMELIA-I or ARB for HF with prior LVEF<40 (NQF 0081) - N/A ASA or Plavix for ASHD (NQF 0067) - declines Beta omar for ASHD with prior [place] or prior LVEF<40 (NQF 0070) - N/A Beta omar for HF with prior LVEF<40 (NQF 0083) - N/A ROMELIA-I or ARB for ASHD with DM or prior LVEF<40 (NQF 0066) - N/A Statin therapy for ASHD or FHL or DM - intolerance BMI documented and plan if >25 (NQF 0421) - lifestyle recommendation form Tobacco use screening and referral (NQF 0028) - lifestyle recommendation form Recommendation for whole food, plant based diet - lifestyle recommendation form CLINICAL IMPRESSION/PLAN: Liliya Encinas is doing well. He will have an ETT and will be referred to cardiac rehabilitation. I've encouraged him to continue his follow-up with functional medicine, if he desires, and with preventive cardiology to consider PCSK9 inhibitor therapy. He was reminded not to interrupt dual antiplatelet therapy. I will see him in 4 months or as needed. If there is increased chest pain or shortness of breath, he has been advised to contact me. Written and verbal health teaching given to patient, patient verbalizes understanding and agrees with treatment plan. DIAGNOSIS FOR VISIT: ASHD Hypertension HISTORY OF PRESENT ILLNESS Liliya Encinas returns for follow follow-up of his coronary disease. He presented to [place] [facility] in January with chest pain and underwent angiography. He was found to have a high-grade proximal LAD lesion which was stented. He had recurrent chest discomfort and follow-up study showed that he had a some plaque shift. A second stent was placed proximal to the initial one. Since that time, he has returned to normal activity. He would like to begin cardiac rehabilitation. He has been trying to cut down on his workload. He denies orthopnea, edema, syncope, palpitations, TIAs, amaurosis and claudication. He will be seen in preventive cardiology for consideration of repatha. He is currently tolerating Zetia. He has not been able to take statins. ALLERGIES: ALLERGIES No Known Allergies CURRENT OUTPATIENT MEDICATIONS: ezetimibe (ZETIA) 10 mg tablet Take 1 tablet by mouth once daily. sertraline (ZOLOFT) 50 mg tablet Take 1 tablet by mouth once daily. predniSONE (DELTASONE) 10 mg tablet Take 4 tabs daily x5 days, then 2 tabs daily for 5 days, then 1 tab daily for 5 days. oxybutynin ER (DITROPAN XL) 10 mg 24 hr tablet Take 1 tablet by mouth daily at bedtime. nitroglycerin sublingual (NITROQUICK) 0.4 mg SL tablet Dissolve 1 tablet under the tongue every 5 minutes as needed. ticagrelor (BRILINTA) 90 mg tablet Take 1 tablet by mouth twice daily. aspirin, enteric coated (ADULT LOW DOSE ASPIRIN) 81 mg EC tablet Take 1 tablet by mouth once daily. The Whole Probiotic ([employer]) Take 1 capsule by mouth once daily. Treatment 3-6 months Homocysteine [place] ([employer]) Take 2 capsules by mouth daily with food. B-Complex Plus (Pure Encapsulations) Take 1 capsule by mouth daily with food. ONE [place] (Pure Encapsulation) Take 3 capsules by mouth daily with food. Magnesium Citrate 150mg 90 ct. (Pure Encapsulations) Take 3 capsules daily. [employer] Multivitamin (Pure Encapsulations) Take 1 capsule by mouth daily with food. Vitamin D3 Liquid (Pure Encapsulations) Take 3-5 drops daily, with meals evolocumab (REPATHA SURECLICK) 140 mg/mL pnij Inject 140 mg subcutaneously every 2 weeks. PHYSICAL EXAMINATION: VITAL SIGNS: BP 142/76 Pulse 69 Wt 194 lb 11.2 oz (88.3kg) Chest: Clear to auscultation. Trachea is midline. Air entry is equal. Cardiac: Regular rhythm. S1 and S2 are normal. PMI is nondisplaced. There is a soft systolic ejection murmur. Carotids are brisk without bruits. JVP is less than 10 cm. Abdomen: Soft and nontender. There are no pulsatile masses or bruits. No liver enlargement. Bowel sounds are active. Extremities: No edema. Pulses are intact and symmetrical. Recent cath films were reviewed with him. Recent echocardiogram was reviewed. Left ventricular function is normal. There is no significant valvular disease. Recent labs were reviewed. Recent LDL was 65. Electronically Signed: Etienne Lowe MD April 07, 2018 2:24 PM CC: MD Etienne Godoy MD 04/07/2018 2:27 PM Signed LIFESTYLE CHANGE A healthy lifestyle is the most important component of your overall treatment plan. Please give serious thought to the following areas and commit to making senior living changes. EAT A WHOLE FOOD, PLANT BASED DIET The nutrition your body gets is more important than the medicine you take. What matters most is the overall way you eat. We encourage you to minimize the use of animal products (which include dairy and all meats except fatty fish) and use whole, unprocessed plant foods to provide your protein, vitamins and other nutrients. We have a lot of information to share with you on this topic. This is not a diet. It is a way of life that you will keep with you. EXERCISE REGULARLY It is not important to spend hours in the gym, lifting weights and perspiring heavily. A total of 2-3 hours per week of aerobic (causing you to be moderately short of breath) exercise is sufficient to improve your health. Talk to us before you begin a new exercise program, if you have heart disease or experience shortness of breath or chest pain. REDUCE STRESS Chronic emotional and physical stress leads to disease. Ways of reducing stress include meditation, visualization, prayer, yoga and other forms of relaxation therapy. Consistency is the cadena. Find a technique that works for you and do it every day. CULTIVATE RELATIONSHIPS Loneliness and isolation have a major negative impact on health. Seek out others who can love, care for and nurture you. Avoid hurtful relationships. MAINTAIN IDEAL BODY WEIGHT The best way to do this is to do all the things above. Our bodies naturally find the right weight if we keep moving and feed ourselves the right food. If your BMI is greater than 25, we strongly recommend a referral to a weight management program. Please speak to us or your family physician about available programs. AVOID NICOTINE IN ALL FORMS This includes all tobacco products, whether chewed, smoked, vaped, or rubbed on the skin. Smoking cessation programs, which can make use of tobacco substitutes, medications to suppress cravings and behavior management, are available. Please contact your family physician about programs in your area. Referring Provider: RUBENS DUENAS [[id number]] Allergies As of Date: 04/07/2018 (No Known Allergies) Date Reviewed: 04/07/2018 Reviewed by: Latia Proctor RN - Fully Assessed Reason for Visit: Recheck [92] Primary Visit Diagnosis:ASHD (arteriosclerotic heart disease) [I25.10] Other Visit Diagnosis:Atherosclerosis of tunica-biloxi coronary artery of tunica-biloxi heart with other form of angina pectoris (HCC) [I25.118] Order(s):CONSULT TO CARD REHAB PHASE II [] Order #: [id number]: 1 STRESS REGULAR W/TREAD [[id number]] Order #: [id number]: 1 Prescriptions as of 04/07/2018 Sig: EZETIMIBE 10 MG TABLET Take 1 tablet by mouth once d* SERTRALINE 50 MG TABLET Take 1 tablet by mouth once d* PREDNISONE 10 MG TABLET Take 4 tabs daily x5 days, th* OXYBUTYNIN CHLORIDE ER 10 MG * Take 1 tablet by mouth daily * NITROGLYCERIN 0.4 MG SUBLINGU* Dissolve 1 tablet under the t* TICAGRELOR 90 MG TABLET Take 1 tablet by mouth twice * ASPIRIN 81 MG TABLET,DELAYED * Take 1 tablet by mouth once d* OTC NUTRITIONAL SUPPLEMENT Take 1 capsule by mouth once * OTC NUTRITIONAL SUPPLEMENT Take 2 capsules by mouth valentin* OTC NUTRITIONAL SUPPLEMENT Take 1 capsule by mouth daily* OTC NUTRITIONAL SUPPLEMENT Take 3 capsules by mouth valentin* OTC NUTRITIONAL SUPPLEMENT Take 3 capsules daily. OTC NUTRITIONAL SUPPLEMENT Take 1 capsule by mouth daily* OTC NUTRITIONAL SUPPLEMENT Take 3-5 drops daily, with me* EVOLOCUMAB 140 MG/ML SUBCUTAN* Inject 140 mg subcutaneously * Patient not taking: Reported on 04/07/2018 Problem List As Of Date 04/07/2018 Noted Resolved PERS HX TOBACCO USE [Z87.891] INVALID FOR* Abdominal pain, epigastric [R10.13] INVALID FOR*02/18/2010 Attention deficit disorder with hyperactivity [*INVALID FOR* NOCTURIA [R35.1] INVALID FOR* Pain in soft tissues of limb [M79.609] INVALID FOR*02/18/2010 Empyema without mention of fistula [J86.9] INVALID FOR*03/31/2017 Pain in joint, shoulder region [M25.519] INVALID FOR*04/06/2017 Esophagitis, unspecified [K20.9] INVALID FOR*04/06/2017 Acute gastritis without mention of hemorrhage [*INVALID FOR*03/31/2017 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 Tear of medial cartilage or meniscus of knee, c*INVALID FOR*04/06/2017 Lumbar radiculopathy [M54.16] INVALID FOR* ED (erectile dysfunction) [N52.9] INVALID FOR* Low testosterone [E34.9] INVALID FOR*03/31/2017 Benign neoplasm of colon [D12.6] INVALID FOR*03/31/2017 SUMMARY [V999.95] INVALID FOR* More... Unstable angina (HCC) [I20.0] INVALID FOR* More... Dyslipidemia (high LDL; low HDL) [E78.5] INVALID FOR* More... Sinus infection [J32.9] INVALID FOR*12/12/2011 More... Need for prophylactic measure [Z29.9] INVALID FOR*03/31/2017 More... Tubular adenoma of colon [D12.6] INVALID FOR* Presence of drug coated stent in posterior desc*INVALID FOR* ASCVD (arteriosclerotic cardiovascular disease)*INVALID FOR*03/31/2017 ASHD (arteriosclerotic heart disease) [I25.10] INVALID FOR* Right carpal tunnel syndrome [G56.01] INVALID FOR*04/06/2017 Atherosclerotic heart disease [I25.10] INVALID FOR* More... Primary hypertension [I10] INVALID FOR* More... Diarrhea [R19.7] INVALID FOR*03/31/2017 More... Non-ST elevation myocardial infarction (NSTEMI)*INVALID FOR* More... Presence of drug coated stent in left circumfle*INVALID FOR* Lumbar foraminal stenosis [M99.83] INVALID FOR*03/31/2017 Lumbar spondylosis [M47.816] INVALID FOR* Neural foraminal stenosis of lumbar spine [M99.*INVALID FOR* More... Right lumbar radiculopathy [M54.16] INVALID FOR* Status post insertion of drug-eluting stent int*INVALID FOR* Anxiety [F41.9] INVALID FOR* Thoracic or lumbosacral neuritis or radiculitis*INVALID FOR*04/06/2017 Lumbosacral spondylosis without myelopathy [M47*INVALID FOR* Hypertriglyceridemia [E78.1] INVALID FOR*03/31/2017 Rotator cuff syndrome of right shoulder [M75.10*INVALID FOR*04/06/2017 Family history of ischemic heart disease [Z82.4*INVALID FOR* Multiple vessel coronary artery disease [I25.10]INVALID FOR*03/31/2017 Statin intolerance [Z78.9] INVALID FOR* More... 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 Cervical radiculopathy [M54.12] INVALID FOR* S/P cervical disc replacement [Z98.890] INVALID FOR* Acute postoperative pain [G89.18] INVALID FOR* More... Benign prostatic hyperplasia with urinary obstr*INVALID FOR* ACS (acute coronary syndrome) (HCC) [I24.9] INVALID FOR* More... Coronary artery disease involving tunica-biloxi chaves*INVALID FOR* More... Post PTCA [Z98.61] INVALID FOR* More... Chest pain [R07.9] INVALID FOR* More... Other instructions from your clinician: LIFESTYLE CHANGE A healthy lifestyle is the most important component of your overall treatment plan. Please give serious thought to the following areas and commit to making o[place] changes. EAT A WHOLE FOOD, PLANT BASED DIET The nutrition your body gets is more important than the medicine you take. What matters most is the overall way you eat. We encourage you to minimize the use of animal products (which include dairy and all meats except fatty fish) and use whole, unprocessed plant foods to provide your protein, vitamins and other nutrients. We have a lot of information to share with you on this topic. This is not a diet. It is a way of life that you will keep with you. EXERCISE REGULARLY It is not important to spend hours in the gym, lifting weights and perspiring heavily. A total of 2-3 hours per week of aerobic (causing you to be moderately short of breath) exercise is sufficient to improve your health. Talk to us before you begin a new exercise program, if you have heart disease or experience shortness of breath or chest pain. REDUCE STRESS Chronic emotional and physical stress leads to disease. Ways of reducing stress include meditation, visualization, prayer, yoga and other forms of relaxation therapy. Consistency is the cadena. Find a technique that works for you and do it every day. CULTIVATE RELATIONSHIPS Loneliness and isolation have a major negative impact on health. Seek out others who can love, care for and nurture you. Avoid hurtful relationships. MAINTAIN IDEAL BODY WEIGHT The best way to do this is to do all the things above. Our bodies naturally find the right weight if we keep moving and feed ourselves the right food. If your BMI is greater than 25, we strongly recommend a referral to a weight management program. Please speak to us or your family physician about available programs. AVOID NICOTINE IN ALL FORMS This includes all tobacco products, whether chewed, smoked, vaped, or rubbed on the skin. Smoking cessation programs, which can make use of tobacco substitutes, medications to suppress cravings and behavior management, are available. Please contact your family physician about programs in your area. Encounter Status:Closed by ETIENNE LOWE MD on 04/07/18 PROGRESS Observed: 04/04/2018 Status: COMPLETED Source: [place] 8:06 AM [facility] REPOSITORY [facility] ID: [id number] Author: Lisa Patel) Ashlee Service: (none) Author Type: Physician Type: Progress Notes Filed: 04/04/2018 9:01 AM Note Text: Chief Complaint Patient presents with: F/U 6 Month HPI Liliya Encinas is a 68 year old male who presents here today for 6 month follow up. Since last OV for hospitalization for ACS with PCI to LAD x2, patient has been following up with several cardiac specialists. Recommended he continue Brillinta and Zetia and are trying to get Repatha approved. Krys states he is switching prescription plans, so cost will go from $600 to $200, but is not switched yet. Has follow up appointment with Dr. Lowe on 04/07. Has been asymptomatic since last OV. Plans on discussing cardiac rehab with Dr. Lowe this week. Denies recurrent angina, SOB, orthopnea, leg swelling. Also followed up with Dr. Jose Chu regarding peripheral neuropathy thought to be related to history of spinal stenosis. Has MRI of lumbar and cervical spine on 04/14 and will then f/u with Dr. Riley. Prednisone helping with neuropathy. Patient sent in message in March stating that he was having mood changes after his PCI x 2. Was having trouble sleeping and crying frequently. Symptoms improved 3 days after starting lexapro, but notes he has been having more erectile dysfunction. Requesting Zoloft instead. HTN: BP well controlled on current regimen. Due for pneumovax update. Up to date on HM otherwise. Past medical history, appointments, medications, allergies reviewed. Previous Medical History PAST MEDICAL HISTORY Diagnosis Date - Acute gastritis without mention of hemorrhage - ADHD (attention deficit hyperactivity disorder) on Lexapro - ASHD (arteriosclerotic heart disease) 04/05/2012 stent x2, Dr. 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 Riley - Testicular lesion right, s/p removal - Vitamin D insufficiency Previous Surgical History PAST SURGICAL HISTORY Procedure Laterality Date - PCI CORONARY INTERVENT 03/2013 X2 - COLONOSCOP W/ OR W/O BRS SPEC TA and hyperplastic polyps removed. - COLONOSCOP W/ OR W/O BRS SPEC 04/13/2017 Colonoscopy - Poor prep - 5 year follow up - COLONOSCOPY W/BX 09/11/11 repeat 5 years - EGD W/O [facility] SPECIMEN W/BX 08/26/07 - HEART SURGERY HX - PAST SURGICAL HISTORY OF removal of right testicle for pre cancer - PAST SURGICAL HISTORY OF 07/26/2006 right lung scrapping and cleaning for impiemia - PAST SURGICAL HISTORY OF remote sinus surgery - PAST SURGICAL HISTORY OF 03/22/2009 microdiscectomy- lumbar - PAST SURGICAL HISTORY OF 05/2009 cerebral meningioma - PAST SURGICAL HISTORY OF 07/2010 Micro discectomy low back - PAST SURGICAL HISTORY OF 07/2013 lumbar discectomy - PAST SURGICAL HISTORY OF Left 04/2015 ankle microfracture, fusion of forefoot - PAST SURGICAL HISTORY OF 2016 L3-L5 revision posterior decompression with TLIF - PAST SURGICAL HISTORY OF 2017 2 level cervical disc replacement - REPAIR ING HERNIA,5+Y/O,REDUCIBL right Hernia repair, inguinal - REVISE MEDIAN N/CARPAL TUNNEL SURG left Carpal tunnel decomp - REVISE MEDIAN N/CARPAL TUNNEL SURG Right 12/02/2016 Right carpal tunnel release - TRANSURETHRAL ELEC-SURG PROSTATECTOM 09/2007 - VASECTOMY Family History FAMILY HISTORY Problem Relation Age of Onset - None Mother - Heart Father 80 stents x 2 - Arthritis Father Patient Allergies ALLERGIES No Known Allergies Current Medications Current Outpatient Prescriptions on File Prior to Visit: predniSONE (DELTASONE) 10 mg tablet Take 4 tabs daily x5 days, then 2 tabs daily for 5 days, then 1 tab daily for 5 days. escitalopram oxalate (LEXAPRO) 10 mg tablet Take 1 tablet by mouth once daily. oxybutynin ER (DITROPAN XL) 10 mg 24 hr tablet Take 1 tablet by mouth daily at bedtime. evolocumab (REPATHA SURECLICK) 140 mg/mL pnij Inject 140 mg subcutaneously every 2 weeks. nitroglycerin sublingual (NITROQUICK) 0.4 mg SL tablet Dissolve 1 tablet under the tongue every 5 minutes as needed. ticagrelor (BRILINTA) 90 mg tablet Take 1 tablet by mouth twice daily. ezetimibe (ZETIA) 10 mg tablet Take 1 tablet by mouth once daily. aspirin, enteric coated (ADULT LOW DOSE ASPIRIN) 81 mg EC tablet Take 1 tablet by mouth once daily. The Whole Probiotic ([employer]) Take 1 capsule by mouth once daily. 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 B-Complex Plus (Pure Encapsulations) Take 1 capsule by mouth daily with food. ONE [place] (Pure Encapsulation) Take 3 capsules by mouth daily with food. Magnesium Citrate 150mg 90 ct[address] (Pure Encapsulations) Take 3 capsules daily. [employer] Multivitamin (Pure Encapsulations) Take 1 capsule by mouth daily with food. Vitamin D3 Liquid (Pure Encapsulations) Take 3-5 drops daily, with meals No current facility-administered medications on file prior to visit. Social History Social History Marital status: Spouse name: Steph Years of education: Number of children: 5 Occupational History Occupation Employer [employer]* Social History Main Topics Smoking status: Former Smoker Packs/day: 1.00 Years: 10.00 Types: Cigarettes Quit date: 05/03/1977 Smokeless tobacco: Never Used Alcohol use: Yes 7.5 oz/week Glasses of Wine (5oz): 5 per week Drug use: No Review of Symptoms REVIEW OF SYSTEMS GENERAL: No weight loss, malaise or fevers RESPIRATORY: Negative for cough, hemoptysis, wheezing, COPD, dyspnea or shortness of breath CARDIOVASCULAR: Negative for chest pain, leg swelling, hypertension, CHF or palpitations GI: No nausea, vomiting, or diarrhea EXAM: BP 126/86 Pulse (!) 56 Resp 12 Wt 89.4 kg (197 lb) BMI 25.99 kg/m? General Appearance: Well appearing, alert, in no acute distress, well-hydrated, well nourished.. Skin: Skin color, texture, turgor normal, no suspicious rashes or lesions. Neck: Supple, no adenopathy; thyroid symmetric, normal size, no bruits. Lungs: lungs clear to auscultation. No wheezing, rhonchi, rales. Heart: RRR without murmur, gallop, or rubs. No ectopy. Abdomen: Normal abdominal exam, Abdomen soft, non-tender. Bowel sounds normal. No masses, organomegaly. Extremities: No deformities, edema, skin discoloration, clubbing or cyanosis. Good capillary refill. . Health Maintenance List BP CONTROLLED (<130/80) due on 02/08/1970 PNEUMOVAX AGE 65 AND OVER WITH 5YR LOOKBACK(1) due on 02/08/2017 DTAP,TDAP,TD(2 - Td) due on 04/18/2018 LDL CHOLESTEROL due on 02/02/2019 ANNUAL PCP TEAM CHRONIC DISEASE VISIT due on 02/16/2019 DIABETES SCREEN due on 02/24/2021 COLORECTAL CANCER SCREENING,SEE MODIFIER due on 04/13/2022 LIPID SCREEN due on 02/02/2023 PROSTATE CANCER SCREENING DISCUSSION Completed ADULT PREVNAR-13 Completed INFLUENZA Completed HEPATITIS C SCREENING Completed Data reviewed Component Latest Ref Rng AND Units 02/02/2018 02/08/2018 02/08/2018 02/08/2018 2018 02/10/2018 02/24/2018 3:10 AM 7:55 AM 4:33 PM WBC 3.70 - 11.00 k/uL 5.22 3.88 4.04 6.09 RBC 4.20 - 6.00 m/uL 4.46 4.46 4.43 4.75 Hemoglobin 13.0 - 17.0 g/dL 13.9 13.8 13.6 14.5 Hematocrit 39.0 - 51.0 % 40.0 41.2 39.3 44.7 MCV 80.0 - 100.0 fL 89.7 92.4 88.7 94.1 MCH 26.0 - 34.0 pG 31.2 30.9 30.7 30.5 MCHC 30.5 - 36.0 g/dL 34.8 33.5 34.6 32.4 RDW-CV 11.5 - 15.0 % 13.0 12.7 12.7 12.6 Platelet Count 150 - 400 k/uL 203 201 190 271 MPV 9.0 - 12.7 fL 9.5 9.4 9.5 9.3 Neut% % 53.7 Abs Neut (ANC) 1.45 - 7.50 k/uL 2.79 Lymph% % 29.5 Abs Lymph 1.00 - 4.00 k/uL 1.54 Arroyo% % 10.5 Abs [place] <0.87 k/uL 0.55 Eosin% % 4.6 Abs Eosin <0.46 k/uL 0.24 Baso% % 1.7 Abs Baso <0.11 k/uL 0.09 Nucleated Reds 0 /100 WBC 0.0 Absolute nRBC <0.01 k/uL <0.01 <0.01 <0.01 <0.01 Diff Type Auto Diff Protein, Total 6.3 - 8.0 g/dL 6.4 Albumin 3.9 - 4.9 g/dL 4.0 Calcium 8.5 - 10.2 mg/dL 9.4 8.7 9.1 9.6 Bilirubin, Total 0.2 - 1.3 mg/dL 0.3 Alkaline Phosphatase 38 - 113 U/L 43 AST 14 - 40 U/L 26 Glucose 74 - 99 mg/dL 116 (H) 101 (H) 92 98 BUN 9 - 24 mg/dL 15 18 13 16 Creatinine 0.73 - 1.22 mg/dL 0.84 0.83 0.89 0.81 Sodium 136 - 144 mmol/L 139 140 142 139 Potassium 3.7 - 5.1 mmol/L 3.8 3.8 3.8 4.4 Chloride 97 - 105 mmol/L 105 106 (H) 108 (H) 102 CO2 22 - 30 mmol/L 22 21 (L) 22 25 Anion Gap 9 - 18 mmol/L 12 13 12 12 ALT 10 - 54 U/L 22 eGFR- >60 >60 >60 >60 eGFR-All Other Races . >60 >60 >60 >60 Total Cholesterol, Nonfasting <200 mg/dL 154 Triglycerides, Nonfasting <150 mg/dL 167 (H) HDL Cholesterol, Nonfasting >39 mg/dL 56 LDL Cholesterol, Nonfasting <100 mg/dL 65 Non HDL Cholesterol, Nonfasting <130 mg/dL 98 VLDL Cholesterol, Nonfasting <30 mg/dL 33 (H) Total Chol/HDL Ratio, Nonfasting <5.10 mg/dL 2.75 LDL/HDL Ratio, Nonfasting <2.54 mg/dL 1.16 CK 51 - 298 U/L 148 111 103 MB <7.7 ng/mL 7.1 5.7 5.4 CK MB % 0.0 - 4.0 % 4.8 (H) 5.1 (H) 5.2 (H) Hemoglobin A1C 4.3 - 5.6 % 5.3 Estimated Average Glucose mg/dL 105 TSH 0.400 - 5.500 uU/mL 4.080 Troponin T 0.000 - 0.029 ng/mL <0.010 <0.010 <0.010 Magnesium 1.7 - 2.3 mg/dL 2.1 1.9 ASSESSMENT/PLAN: 1. Coronary artery disease involving tunica-biloxi coronary artery without angina pectoris, unspecified whether tunica-biloxi or transplanted heart - ICD9: 414.01, ICD10: I25.10 (primary diagnosis) Asymptomatic on current regimen. F/u with cardiology as scheduled. 2. ACS (acute coronary syndrome) (HCC) - ICD9: 411.1, ICD10: I24.9 See #1 3. Other depression - ICD9: 311, ICD10: F32.89 Stop Lexapro, start zoloft instead. Recheck in 6 months. To call with continued erectile dysfunction. - SERTRALINE 50 MG TABLET 4. Neural foraminal stenosis of lumbar spine - ICD9: 724.02, ICD10: M99.83 Improving on prednisone. F/u with MRI as scheduled. Recommendations per Dr. Riley 5. Dyslipidemia (high LDL; low HDL) - ICD9: 272.4, ICD10: E78.5 - good control - Continue current medication. - Encouraged following a low fat, low cholesterol diet. - Discussed the benefits of regular aerobic exercise and weight loss. 6. Primary hypertension - ICD9: 401.9, ICD10: I10 - good control - Continue current medication(s) - Encouraged dietary sodium restriction/DASH diet - Recommended regular aerobic exercise. - Reviewed risks of HTN and principles of treatment - Goal of BP <140/90 7. Mixed hyperlipidemia - ICD9: 272.2, ICD10: E78.2 - good control - Continue current medication. - Encouraged following a low fat, low cholesterol diet. - Discussed the benefits of regular aerobic exercise and weight loss. - EZETIMIBE 10 MG TABLET 8. Erectile dysfunction due to diseases classified elsewhere - ICD9: 607.84, ICD10: N52.1 Stop lexapro. Start zoloft. 9. Need for vaccination - ICD9: V05.9, ICD10: Z23 - PNEUMOCOCCAL IMMUNIZATION PPSV 23 Lisa Rosado MD CNOV Observed: 04/04/2018 Status: COMPLETED Source: [place] 8:00 AM [facility] REPOSITORY Office Visit (FAMPWS) LILIYA ENCINAS ([id number]) 1950 M Date Time Provider Department 04/04/18 8:00 AM LISA ROSADO) [facility] During your visit today, we recorded the following information about you: Pulse Respiration Blood pressure Weight 56/minute 12/minute 126/86 89.4 kg Lisa Rosado MD 04/04/2018 9:01 AM Signed Chief Complaint Patient presents with: F/U 6 Month HPI Liliya Encinas is a 68 year old male who presents here today for 6 month follow up. Since last OV for hospitalization for ACS with PCI to LAD x2, patient has been following up with several cardiac specialists. Recommended he continue Brillinta and Zetia and are trying to get Repatha approved. Paitent states he is switching prescription plans, so cost will go from $600 to $200, but is not switched yet. Has follow up appointment with Dr. Lowe on 04/07. Has been asymptomatic since last OV. Plans on discussing cardiac rehab with Dr. Lowe this week. Denies recurrent angina, SOB, orthopnea, leg swelling. Also followed up with Dr. Jose Chu regarding peripheral neuropathy thought to be related to history of spinal stenosis. Has MRI of lumbar and cervical spine on 04/14 and will then f/u with Dr. Riley. Prednisone helping with neuropathy. Patient sent in message in March stating that he was having mood changes after his PCI x 2. Was having trouble sleeping and crying frequently. Symptoms improved 3 days after starting lexapro, but notes he has been having more erectile dysfunction. Requesting Zoloft instead. HTN: BP well controlled on current regimen. Due for pneumovax update. Up to date on HM otherwise. Past medical history, appointments, medications, allergies reviewed. Previous Medical History PAST MEDICAL HISTORY Diagnosis Date - Acute gastritis without mention of hemorrhage - ADHD (attention deficit hyperactivity disorder) on Lexapro - ASHD (arteriosclerotic heart disease) 04/05/2012 stent x2, Dr. 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 Riley - Testicular lesion right, s/p removal - Vitamin D insufficiency Previous Surgical History PAST SURGICAL HISTORY Procedure Laterality Date - CC PCI CORONARY INTERVENT 03/2013 X2 - COLONOSCOP W/ OR W/O [facility] SPEC TA and hyperplastic polyps removed. - COLONOSCOP W/ OR W/O [facility] SPEC 04/13/2017 Colonoscopy - Poor prep - 5 year follow up - COLONOSCOPY W/BX 09/11/11 repeat 5 years - EGD W/O [facility] SPECIMEN W/BX 08/26/07 - HEART SURGERY HX - PAST SURGICAL HISTORY OF removal of right testicle for pre cancer - PAST SURGICAL HISTORY OF 07/26/2006 right lung scrapping and cleaning for impiemia - PAST SURGICAL HISTORY OF remote sinus surgery - PAST SURGICAL HISTORY OF 03/22/2009 microdiscectomy- lumbar - PAST SURGICAL HISTORY OF 05/2009 cerebral meningioma - PAST SURGICAL HISTORY OF 07/2010 Micro discectomy low back - PAST SURGICAL HISTORY OF 07/2013 lumbar discectomy - PAST SURGICAL HISTORY OF Left 04/2015 ankle microfracture, fusion of forefoot - PAST SURGICAL HISTORY OF 2016 L3-L5 revision posterior decompression with TLIF - PAST SURGICAL HISTORY OF 2018 2 level cervical disc replacement - REPAIR ING HERNIA,5+Y/O,REDUCIBL right Hernia repair, inguinal - REVISE MEDIAN N/CARPAL TUNNEL SURG left Carpal tunnel decomp - REVISE MEDIAN N/CARPAL TUNNEL SURG Right 12/02/2016 Right carpal tunnel release - TRANSURETHRAL ELEC-SURG PROSTATECTOM 09/2007 - VASECTOMY Family History FAMILY HISTORY Problem Relation Age of Onset - None Mother - Heart Father 80 stents x 2 - Arthritis Father Patient Allergies ALLERGIES No Known Allergies Current Medications Current Outpatient Prescriptions on File Prior to Visit: predniSONE (DELTASONE) 10 mg tablet Take 4 tabs daily x5 days, then 2 tabs daily for 5 days, then 1 tab daily for 5 days. escitalopram oxalate (LEXAPRO) 10 mg tablet Take 1 tablet by mouth once daily. oxybutynin ER (DITROPAN XL) 10 mg 24 hr tablet Take 1 tablet by mouth daily at bedtime. evolocumab (REPATHA SURECLICK) 140 mg/mL pnij Inject 140 mg subcutaneously every 2 weeks. nitroglycerin sublingual (NITROQUICK) 0.4 mg SL tablet Dissolve 1 tablet under the tongue every 5 minutes as needed. ticagrelor (BRILINTA) 90 mg tablet Take 1 tablet by mouth twice daily. ezetimibe (ZETIA) 10 mg tablet Take 1 tablet by mouth once daily. aspirin, enteric coated (ADULT LOW DOSE ASPIRIN) 81 mg EC tablet Take 1 tablet by mouth once daily. The Whole Probiotic ([employer]) Take 1 capsule by mouth once daily. 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 B-Complex Plus ([employer]) Take 1 capsule by mouth daily with food. ONE [place] (Pure Encapsulation) Take 3 capsules by mouth daily with food. Magnesium Citrate 150mg 90 ct[address] ([employer]) Take 3 capsules daily. [employer] Multivitamin ([employer]) Take 1 capsule by mouth daily with food. Vitamin D3 Liquid ([employer]) Take 3-5 drops daily, with meals No current facility-administered medications on file prior to visit. Social History Social History Marital status: Spouse name: Steph Years of education: Number of children: 5 Occupational History Occupation Employer [employer]* Social History Main Topics Smoking status: Former Smoker Packs/day: 1.00 Years: 10.00 Types: Cigarettes Quit date: 05/03/1977 Smokeless tobacco: Never Used Alcohol use: Yes 7.5 oz/week Glasses of Wine (5oz): 5 per week Drug use: No Review of Symptoms REVIEW OF SYSTEMS GENERAL: No weight loss, malaise or fevers RESPIRATORY: Negative for cough, hemoptysis, wheezing, COPD, dyspnea or shortness of breath CARDIOVASCULAR: Negative for chest pain, leg swelling, hypertension, CHF or palpitations GI: No nausea, vomiting, or diarrhea EXAM: BP 126/86 Pulse (!) 56 Resp 12 Wt 89.4 kg (197 lb) BMI 25.99 kg/m? General Appearance: Well appearing, alert, in no acute distress, well-hydrated, well nourished.. Skin: Skin color, texture, turgor normal, no suspicious rashes or lesions. Neck: Supple, no adenopathy; thyroid symmetric, normal size, no bruits. Lungs: lungs clear to auscultation. No wheezing, rhonchi, rales. Heart: RRR without murmur, gallop, or rubs. No ectopy. Abdomen: Normal abdominal exam, Abdomen soft, non-tender. Bowel sounds normal. No masses, organomegaly. Extremities: No deformities, edema, skin discoloration, clubbing or cyanosis. Good capillary refill. . Health Maintenance List BP CONTROLLED (<130/80) due on 02/08/1970 PNEUMOVAX AGE 65 AND OVER WITH 5YR LOOKBACK(1) due on 02/08/2017 DTAP,TDAP,TD(2 - Td) due on 04/18/2018 LDL CHOLESTEROL due on 02/02/2019 ANNUAL PCP TEAM CHRONIC DISEASE VISIT due on 02/16/2019 DIABETES SCREEN due on 02/24/2021 COLORECTAL CANCER SCREENING,SEE MODIFIER due on 04/13/2022 LIPID SCREEN due on 02/02/2023 PROSTATE CANCER SCREENING DISCUSSION Completed ADULT PREVNAR-13 Completed INFLUENZA Completed HEPATITIS C SCREENING Completed Data reviewed Component Latest Ref Rng AND Units 02/02/2018 02/08/2018 02/08/2018 02/08/2018 2018 02/10/2018 02/24/2018 3:10 AM 7:55 AM 4:33 PM WBC 3.70 - 11.00 k/uL 5.22 3.88 4.04 6.09 RBC 4.20 - 6.00 m/uL 4.46 4.46 4.43 4.75 Hemoglobin 13.0 - 17.0 g/dL 13.9 13.8 13.6 14.5 Hematocrit 39.0 - 51.0 % 40.0 41.2 39.3 44.7 MCV 80.0 - 100.0 fL 89.7 92.4 88.7 94.1 MCH 26.0 - 34.0 pG 31.2 30.9 30.7 30.5 MCHC 30.5 - 36.0 g/dL 34.8 33.5 34.6 32.4 RDW-CV 11.5 - 15.0 % 13.0 12.7 12.7 12.6 Platelet Count 150 - 400 k/uL 203 201 190 271 MPV 9.0 - 12.7 fL 9.5 9.4 9.5 9.3 Neut% % 53.7 Abs Neut (ANC) 1.45 - 7.50 k/uL 2.79 Lymph% % 29.5 Abs Lymph 1.00 - 4.00 k/uL 1.54 Arroyo% % 10.5 Abs [place] <0.87 k/uL 0.55 Eosin% % 4.6 Abs Eosin <0.46 k/uL 0.24 Baso% % 1.7 Abs Baso <0.11 k/uL 0.09 Nucleated Reds 0 /100 WBC 0.0 Absolute nRBC <0.01 k/uL <0.01 <0.01 <0.01 <0.01 Diff Type Auto Diff Protein, Total 6.3 - 8.0 g/dL 6.4 Albumin 3.9 - 4.9 g/dL 4.0 Calcium 8.5 - 10.2 mg/dL 9.4 8.7 9.1 9.6 Bilirubin, Total 0.2 - 1.3 mg/dL 0.3 Alkaline Phosphatase 38 - 113 U/L 43 AST 14 - 40 U/L 26 Glucose 74 - 99 mg/dL 116 (H) 101 (H) 92 98 BUN 9 - 24 mg/dL 15 18 13 16 Creatinine 0.73 - 1.22 mg/dL 0.84 0.83 0.89 0.81 Sodium 136 - 144 mmol/L 139 140 142 139 Potassium 3.7 - 5.1 mmol/L 3.8 3.8 3.8 4.4 Chloride 97 - 105 mmol/L 105 106 (H) 108 (H) 102 CO2 22 - 30 mmol/L 22 21 (L) 22 25 Anion Gap 9 - 18 mmol/L 12 13 12 12 ALT 10 - 54 U/L 22 eGFR- >60 >60 >60 >60 eGFR-All Other Races . >60 >60 >60 >60 Total Cholesterol, Nonfasting <200 mg/dL 154 Triglycerides, Nonfasting <150 mg/dL 167 (H) HDL Cholesterol, Nonfasting >39 mg/dL 56 LDL Cholesterol, Nonfasting <100 mg/dL 65 Non HDL Cholesterol, Nonfasting <130 mg/dL 98 VLDL Cholesterol, Nonfasting <30 mg/dL 33 (H) Total Chol/HDL Ratio, Nonfasting <5.10 mg/dL 2.75 LDL/HDL Ratio, Nonfasting <2.54 mg/dL 1.16 CK 51 - 298 U/L 148 111 103 MB <7.7 ng/mL 7.1 5.7 5.4 CK MB % 0.0 - 4.0 % 4.8 (H) 5.1 (H) 5.2 (H) Hemoglobin A1C 4.3 - 5.6 % 5.3 Estimated Average Glucose mg/dL 105 TSH 0.400 - 5.500 uU/mL 4.080 Troponin T 0.000 - 0.029 ng/mL <0.010 <0.010 <0.010 Magnesium 1.7 - 2.3 mg/dL 2.1 1.9 ASSESSMENT/PLAN: 1. Coronary artery disease involving tunica-biloxi coronary artery without angina pectoris, unspecified whether tunica-biloxi or transplanted heart - ICD9: 414.01, ICD10: I25.10 (primary diagnosis) Asymptomatic on current regimen. F/u with cardiology as scheduled. 2. ACS (acute coronary syndrome) (HCC) - ICD9: 411.1, ICD10: I24.9 See #1 3. Other depression - ICD9: 311, ICD10: F32.89 Stop Lexapro, start zoloft instead. Recheck in 6 months. To call with continued erectile dysfunction. - SERTRALINE 50 MG TABLET 4. Neural foraminal stenosis of lumbar spine - ICD9: 724.02, ICD10: M99.83 Improving on prednisone. F/u with MRI as scheduled. Recommendations per Dr. Riley 5. Dyslipidemia (high LDL; low HDL) - ICD9: 272.4, ICD10: E78.5 - good control - Continue current medication. - Encouraged following a low fat, low cholesterol diet. - Discussed the benefits of regular aerobic exercise and weight loss. 6. Primary hypertension - ICD9: 401.9, ICD10: I10 - good control - Continue current medication(s) - Encouraged dietary sodium restriction/DASH diet - Recommended regular aerobic exercise. - Reviewed risks of HTN and principles of treatment - Goal of BP <140/90 7. Mixed hyperlipidemia - ICD9: 272.2, ICD10: E78.2 - good control - Continue current medication. - Encouraged following a low fat, low cholesterol diet. - Discussed the benefits of regular aerobic exercise and weight loss. - EZETIMIBE 10 MG TABLET 8. Erectile dysfunction due to diseases classified elsewhere - ICD9: 607.84, ICD10: N52.1 Stop lexapro. Start zoloft. 9. Need for vaccination - ICD9: V05.9, ICD10: Z23 - PNEUMOCOCCAL IMMUNIZATION PPSV 23 Lisa Rosado MD Referring Provider: LISA ROSADO () [[id number]] Allergies As of Date: 04/04/2018 Noted Allergy Reaction LEXAPRO (ESCITALOPRAM) 04/04/2018 14 - Other: See Comments Comments: Erectile dysfunction Date Reviewed: 04/04/2018 Reviewed by: Isidro Telles Ma - Fully Assessed Reason for Visit: F/U 6 Month [444] Primary Visit Diagnosis:Coronary artery disease involving tunica-biloxi coronary artery without angina pectoris, unspecified whether tunica-biloxi or transplanted heart [I25.10] Other Visit Diagnoses:ACS (acute coronary syndrome) (HCC) [I24.9] Other depression [F32.89] Neural foraminal stenosis of lumbar spine [M99.83] Dyslipidemia (high LDL; low HDL) [E78.5] Primary hypertension [I10] Mixed hyperlipidemia [E78.2] Erectile dysfunction due to diseases classified elsewhere [N52.1] Need for vaccination [Z23] Order(s):ezetimibe (ZETIA) 10 mg tabletTake 1 tablet by mouth once daily.Disp: 30 tabletRfl: 11 PNEUMOCOCCAL IMMUNIZATION PPSV 23 [[id number]] Order #: [id number] sertraline (ZOLOFT) 50 mg tabletTake 1 tablet by mouth once daily.Disp: 30 tabletRfl: 5 Prescriptions as of 04/04/2018 Sig: EZETIMIBE 10 MG TABLET Take 1 tablet by mouth once d* PREDNISONE 10 MG TABLET Take 4 tabs daily x5 days, th* OXYBUTYNIN CHLORIDE ER 10 MG * Take 1 tablet by mouth daily * NITROGLYCERIN 0.4 MG SUBLINGU* Dissolve 1 tablet under the t* TICAGRELOR 90 MG TABLET Take 1 tablet by mouth twice * ASPIRIN 81 MG TABLET,DELAYED * Take 1 tablet by mouth once d* OTC NUTRITIONAL SUPPLEMENT Take 1 capsule by mouth once * OTC NUTRITIONAL SUPPLEMENT Take 2 capsules by mouth valentin* OTC NUTRITIONAL SUPPLEMENT Take 1 capsule by mouth daily* OTC NUTRITIONAL SUPPLEMENT Take 3 capsules by mouth valentin* OTC NUTRITIONAL SUPPLEMENT Take 3 capsules daily. OTC NUTRITIONAL SUPPLEMENT Take 1 capsule by mouth daily* OTC NUTRITIONAL SUPPLEMENT Take 3-5 drops daily, with me* SERTRALINE 50 MG TABLET Take 1 tablet by mouth once d* EVOLOCUMAB 140 MG/ML SUBCUTAN* Inject 140 mg subcutaneously * Problem List As Of Date 04/04/2018 Noted Resolved PERS HX TOBACCO USE [Z87.891] INVALID FOR* Abdominal pain, epigastric [R10.13] INVALID FOR*02/18/2010 Attention deficit disorder with hyperactivity [*INVALID FOR* NOCTURIA [R35.1] INVALID FOR* Pain in soft tissues of limb [M79.609] INVALID FOR*02/18/2010 Empyema without mention of fistula [J86.9] INVALID FOR*03/31/2017 Pain in joint, shoulder region [M25.519] INVALID FOR*04/06/2017 Esophagitis, unspecified [K20.9] INVALID FOR*04/06/2017 Acute gastritis without mention of hemorrhage [*INVALID FOR*03/31/2017 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 Tear of medial cartilage or meniscus of knee, c*INVALID FOR*04/06/2017 Lumbar radiculopathy [M54.16] INVALID FOR* ED (erectile dysfunction) [N52.9] INVALID FOR* Low testosterone [E34.9] INVALID FOR*03/31/2017 Benign neoplasm of colon [D12.6] INVALID FOR*03/31/2017 SUMMARY [V999.95] INVALID FOR* More... Unstable angina (HCC) [I20.0] INVALID FOR* More... Dyslipidemia (high LDL; low HDL) [E78.5] INVALID FOR* More... Sinus infection [J32.9] INVALID FOR*12/12/2011 More... Need for prophylactic measure [Z29.9] INVALID FOR*03/31/2017 More... Tubular adenoma of colon [D12.6] INVALID FOR* Presence of drug coated stent in posterior desc*INVALID FOR* ASCVD (arteriosclerotic cardiovascular disease)*INVALID FOR*03/31/2017 ASHD (arteriosclerotic heart disease) [I25.10] INVALID FOR* Right carpal tunnel syndrome [G56.01] INVALID FOR*04/06/2017 CAD (coronary artery disease) [I25.10] INVALID FOR* More... Primary hypertension [I10] INVALID FOR* More... Diarrhea [R19.7] INVALID FOR*03/31/2017 More... Non-ST elevation myocardial infarction (NSTEMI)*INVALID FOR* More... Presence of drug coated stent in left circumfle*INVALID FOR* Lumbar foraminal stenosis [M99.83] INVALID FOR*03/31/2017 Lumbar spondylosis [M47.816] INVALID FOR* Neural foraminal stenosis of lumbar spine [M99.*INVALID FOR* More... Right lumbar radiculopathy [M54.16] INVALID FOR* Status post insertion of drug-eluting stent int*INVALID FOR* Anxiety [F41.9] INVALID FOR* Thoracic or lumbosacral neuritis or radiculitis*INVALID FOR*04/06/2017 Lumbosacral spondylosis without myelopathy [M47*INVALID FOR* Hypertriglyceridemia [E78.1] INVALID FOR*03/31/2017 Rotator cuff syndrome of right shoulder [M75.10*INVALID FOR*04/06/2017 Family history of ischemic heart disease [Z82.4*INVALID FOR* Multiple vessel coronary artery disease [I25.10]INVALID FOR*03/31/2017 Statin intolerance [Z78.9] INVALID FOR* More... 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 Cervical radiculopathy [M54.12] INVALID FOR* S/P cervical disc replacement [Z98.890] INVALID FOR* Acute postoperative pain [G89.18] INVALID FOR* More... Benign prostatic hyperplasia with urinary obstr*INVALID FOR* ACS (acute coronary syndrome) (HCC) [I24.9] INVALID FOR* More... Coronary artery disease involving tunica-biloxi chaves*INVALID FOR* More... Post PTCA [Z98.61] INVALID FOR* More... Chest pain [R07.9] INVALID FOR* More... Prescriptions ordered this encounter Disp Refills Start End EZETIMIBE 10 MG TABLET 30 t* 11 04/04/2018 Route: ORAL Sig: Take 1 tablet by mouth once daily. SERTRALINE 50 MG TABLET 30 t* 5 04/04/2018 Route: ORAL Sig: Take 1 tablet by mouth once daily. Medications Discontinued During This Encounter ezetimibe (ZETIA) 10 mg tablet 30 t* 5 09/29/2017 04/04/2018 Route: ORAL Sig: Take 1 tablet by mouth once daily. Disc: Reason for discontinue is not on file. escitalopram oxalate (LEXAPRO) 10 mg* 30 t* 5 03/25/2018 04/04/2018 Route: ORAL Sig: Take 1 tablet by mouth once daily. Disc: Reason for discontinue is not on file. Disposition: Return in about 6 months (around 10/03/2018). Follow-up and Disposition History Recorded Encounter Status:Closed by LISA ROSADO MD on 04/04/18 SINUS/FACIAL BONE Observed: 04/04/2018 Status: F Source: CONGRESS 7:02 AM [facility] REPOSITORY [facility] Imaging Services [address] [place] [id number] Sinus/Facial Bone MR#: [id number] Acct: [id number] Name: LILIYA ENCINAS Rep #: [id number] : 1950 M 68 From: Rakesh Ledesma MD PCP: Aquiles Rosado MD Status: REG CLI Study: Sinus/Facial Bone Date of Exam: 04/04/18 Exam# [id number] Ordering Dr: Amari Martinez MD STUDY: CT MAXILLOFACIAL SINUSES REASON FOR EXAM: Male, 68 years old. Recurrent chronic sinusitis. Nasal drainage. RADIATION DOSAGE (If Supplied By Facility): CTDIvol = ( 33.06 ) mGy, DLP = ( 833.85 ) mGycm TECHNIQUE: The patient was scanned in a multi detector CT scanner. High resolution axial imaging was performed without the administration of intravenous contrast material. Sagittal and coronal images were reconstructed. Individualized dose optimization techniques were used for this CT. COMPARISON: None. FINDINGS: FRONTAL SINUSES: Normal aeration, without mucosal inflammatory disease. ETHMOIDAL SINUSES: Minimal mucosal thickening of the ethmoid sinuses. MAXILLARY SINUSES: Mucosal thickening along the superior medial aspect of the maxillary sinus bilaterally causing compromise of the ostiomeatal complexes. SPHENOIDAL SINUSES: Normal aeration, without mucosal inflammatory disease. There is patency of the bilateral maxillary infundibuli with normal uncinate processes, ethmoid bullae, and hiatus semilunaris. Normal bilateral middle turbinates. Normal bilateral inferior turbinates. Normal midline nasal septum. There is patency of the bilateral nasal airways. The visualized osseous structures are normal. The visualized bilateral orbital contents are normal. The patient is status post right parietal craniotomy. CT/Sinus/Facial Bone IMPRESSION: Mucosal thickening of the ethmoid sinuses and the superior medial aspects of the maxillary sinuses bilaterally. Electronically Signed: Rakesh Ledesma MD at 15:46 EST Tel [phone], Service support , CC: Amari Martinez MD; Aquiles Rosado MD Lead Miner Blasting: Signed 12 LEAD ELECTROCARDIOGRAM Observed: 04/01/2018 Status: F Source: CONGRESS 9:16 AM [facility] REPOSITORY [facility] Cardiovascular Services [address] [place] [id number] 12 Lead EKG 03/22/18 1454 MR#: [id number] Acct: [id number] Name: LILIYA ENCINAS Rep #: [id number] : 1950 68 From: Willie Araya MD Attending Dr: Status: DEP ER Ordering Dr: Esha Wooten MD Date: 03/22/18 Location: ED Sex: M C Admitted: Test Reason : CP Blood Pressure : / mmHG Vent. Rate : 063 BPM Atrial Rate : 063 BPM P-R Int : 144 ms QRS Dur : 098 ms QT Int : 422 ms P-R-T Axes : 053 062 048 degrees QTc Int : 431 ms Normal sinus rhythm Normal ECG Confirmed by WILLIE ARAYA MD ([id number]), editorial manager MURRAY CHAPARRO ([id number]) on 03/25/2018 1:20:11 PM Referred By: JOSELUIS Confirmed By:WILLIE ARAYA MD 03/25/18 1320 Date Willie Araya MD CC: Aquiles Rosado MD; Esha Wooten MD Signed PROGRESS Observed: 03/30/2018 Status: COMPLETED Source: [place] 8:49 AM [facility] REPOSITORY HNO ID: [id number] Author: Jose Chu V Service: (none) Author Type: Physician Type: Progress Notes Filed: 03/31/2018 11:06 AM Note Text: Liliya Encinas presents with numbness and tingling in the fingertips bilaterally and lower legs, feet bilaterally. He states that he has no pain, and minimal if any weakness, but the numbness and tingling secondary to be getting progressively worse. Certain activities that he does involving bending and twisting will make the numbness and tingling in the lower legs and feet worse. It improves to baseline with postural correction and rest, but never goes away. His concern is that he has had both lumbar fusion surgery and cervical disc replacement surgery and his surgeon, Dr. Riley, discussed further imaging should symptoms return or worsen. He presents today to get the ball rolling. He denies bowel or bladder dysfunction. PAST SURGICAL HISTORY Procedure Laterality Date - CC PCI CORONARY INTERVENT 03/2013 X2 - COLONOSCOP W/ OR W/O BRS SPEC TA and hyperplastic polyps removed. - COLONOSCOP W/ OR W/O BRS SPEC 04/13/2017 Colonoscopy - Poor prep - 5 year follow up - COLONOSCOPY W/BX 09/11/11 repeat 5 years - EGD W/O [facility] SPECIMEN W/BX 08/26/07 - HEART SURGERY HX - PAST SURGICAL HISTORY OF removal of right testicle for pre cancer - PAST SURGICAL HISTORY OF 07/26/2006 right lung scrapping and cleaning for impiemia - PAST SURGICAL HISTORY OF remote sinus surgery - PAST SURGICAL HISTORY OF 03/22/2009 microdiscectomy- lumbar - PAST SURGICAL HISTORY OF 05/2009 cerebral meningioma - PAST SURGICAL HISTORY OF 07/2010 Micro discectomy low back - PAST SURGICAL HISTORY OF 07/2013 lumbar discectomy - PAST SURGICAL HISTORY OF Left 04/2015 ankle microfracture, fusion of forefoot - PAST SURGICAL HISTORY OF 2016 L3-L5 revision posterior decompression with TLIF - PAST SURGICAL HISTORY OF 2017 2 level cervical disc replacement - REPAIR ING HERNIA,5+Y/O,REDUCIBL right Hernia repair, inguinal - REVISE MEDIAN N/CARPAL TUNNEL SURG left Carpal tunnel decomp - REVISE MEDIAN N/CARPAL TUNNEL SURG Right 12/02/2016 Right carpal tunnel release - TRANSURETHRAL ELEC-SURG PROSTATECTOM 09/2007 - VASECTOMY PAST MEDICAL HISTORY Diagnosis Date - Acute gastritis without mention of hemorrhage - ADHD (attention deficit hyperactivity disorder) on Lexapro - ASHD (arteriosclerotic heart disease) 04/05/2012 stent x2, Dr. 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 Riley - Testicular lesion right, s/p removal - Vitamin D insufficiency Social History Marital status: Spouse name: Steph Years of education: Number of children: 5 Occupational History Occupation Employer [employer]* Social History Main Topics Smoking status: Former Smoker Packs/day: 1.00 Years: 10.00 Types: Cigarettes Quit date: 05/03/1977 Smokeless tobacco: Never Used Alcohol use: Yes 7.5 oz/week Glasses of Wine (5oz): 5 per week Drug use: No Current Outpatient Prescriptions on File Prior to Visit: escitalopram oxalate (LEXAPRO) 10 mg tablet Take 1 tablet by mouth once daily. oxybutynin ER (DITROPAN XL) 10 mg 24 hr tablet Take 1 tablet by mouth daily at bedtime. evolocumab (REPATHA SURECLICK) 140 mg/mL pnij Inject 140 mg subcutaneously every 2 weeks. nitroglycerin sublingual (NITROQUICK) 0.4 mg SL tablet Dissolve 1 tablet under the tongue every 5 minutes as needed. ticagrelor (BRILINTA) 90 mg tablet Take 1 tablet by mouth twice daily. ezetimibe (ZETIA) 10 mg tablet Take 1 tablet by mouth once daily. aspirin, enteric coated (ADULT LOW DOSE ASPIRIN) 81 mg EC tablet Take 1 tablet by mouth once daily. The Whole Probiotic ([employer]) Take 1 capsule by mouth once daily. Treatment 3-6 months Homocysteine [place] (OrdrIt) Take 2 capsules by mouth daily with food. B-Complex Plus (Pure Encapsulations) Take 1 capsule by mouth daily with food. ONE [place] (Pure Encapsulation) Take 3 capsules by mouth daily with food. Magnesium Citrate 150mg 90 ct[address] (Pure Encapsulations) Take 3 capsules daily. Pure[employer] Multivitamin (Pure Encapsulations) Take 1 capsule by mouth daily with food. Vitamin D3 Liquid (Pure Encapsulations) Take 3-5 drops daily, with meals No current facility-administered medications on file prior to visit. Physical Exam Findings: General exam: Normal appearance, no acute distress Cranial nerves II through XII are intact, no functional deficits noted. Extremeties show no significant range of motion restriction or focal weakness with strength testing. Vibratory testing using tuning fork shows decreased sensation bilaterally in the lower extremities. Deep tendon reflexes are 1 over 4 at patella, and Achilles bilaterally. Assessment: Lumbar spondylosis Neural foraminal stenosis of lumbar spine Status post cervical disc replacement, C4-C5 and C5-C6 Plan: I will reach out to Dr. Riley to coordinate a plan for further evaluation, possibly imaging or additional neurologic testing. Jose Chu DO Addendum: after conferring with Dr. Riley, recommendation is to order MRI of both lumbar and cervical spine, to be performed at [facility] with 3T magnet. order entered. Patient's request for medication is as follows Signed Prescriptions Disp Refills predniSONE (DELTASONE) 10 mg tablet 35 tablet 0 Sig: Take 4 tabs daily x5 days, then 2 tabs daily for 5 days, then 1 tab daily for 5 days. Order entered - please phone pharmacy and notify patient. Jose Chu DO CNOV Observed: 03/30/2018 Status: COMPLETED Source: [place] 8:00 AM [facility] REPOSITORY Office Visit () HUANGLILIYA Finley ([id number]) 1950 M Date Time Provider Department 03/30/18 8:00 AM JOSE CHU During your visit today, we recorded the following information about you: Jose Chu DO 03/31/2018 11:06 AM Addendum Liliya Finley Huang presents with numbness and tingling in the fingertips bilaterally and lower legs, feet bilaterally. He states that he has no pain, and minimal if any weakness, but the numbness and tingling secondary to be getting progressively worse. Certain activities that he does involving bending and twisting will make the numbness and tingling in the lower legs and feet worse. It improves to baseline with postural correction and rest, but never goes away. His concern is that he has had both lumbar fusion surgery and cervical disc replacement surgery and his surgeon, Dr. Riley, discussed further imaging should symptoms return or worsen. He presents today to get the ball rolling. He denies bowel or bladder dysfunction. PAST SURGICAL HISTORY Procedure Laterality Date - CC PCI CORONARY INTERVENT 03/2013 X2 - COLONOSCOP W/ OR W/O [facility] SPEC TA and hyperplastic polyps removed. - COLONOSCOP W/ OR W/O [facility] SPEC 04/13/2017 Colonoscopy - Poor prep - 5 year follow up - COLONOSCOPY W/BX 09/11/11 repeat 5 years - EGD W/O [facility] SPECIMEN W/BX 08/26/07 - HEART SURGERY HX - PAST SURGICAL HISTORY OF removal of right testicle for pre cancer - PAST SURGICAL HISTORY OF 07/26/2006 right lung scrapping and cleaning for impiemia - PAST SURGICAL HISTORY OF remote sinus surgery - PAST SURGICAL HISTORY OF 03/22/2009 microdiscectomy- lumbar - PAST SURGICAL HISTORY OF 05/2009 cerebral meningioma - PAST SURGICAL HISTORY OF 07/2010 Micro discectomy low back - PAST SURGICAL HISTORY OF 07/2013 lumbar discectomy - PAST SURGICAL HISTORY OF Left 04/2015 ankle microfracture, fusion of forefoot - PAST SURGICAL HISTORY OF 2016 L3-L5 revision posterior decompression with TLIF - PAST SURGICAL HISTORY OF 2018 2 level cervical disc replacement - REPAIR ING HERNIA,5+Y/O,REDUCIBL right Hernia repair, inguinal - REVISE MEDIAN N/CARPAL TUNNEL SURG left Carpal tunnel decomp - REVISE MEDIAN N/CARPAL TUNNEL SURG Right 12/02/2016 Right carpal tunnel release - TRANSURETHRAL ELEC-SURG PROSTATECTOM 09/2007 - VASECTOMY PAST MEDICAL HISTORY Diagnosis Date - Acute gastritis without mention of hemorrhage - ADHD (attention deficit hyperactivity disorder) on Lexapro - ASHD (arteriosclerotic heart disease) 04/05/2012 stent x2, Dr. 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 Riley - Testicular lesion right, s/p removal - Vitamin D insufficiency Social History Marital status: Spouse name: Steph Years of education: Number of children: 5 Occupational History Occupation Employer [employer]* Social History Main Topics Smoking status: Former Smoker Packs/day: 1.00 Years: 10.00 Types: Cigarettes Quit date: 05/03/1977 Smokeless tobacco: Never Used Alcohol use: Yes 7.5 oz/week Glasses of Wine (5oz): 5 per week Drug use: No Current Outpatient Prescriptions on File Prior to Visit: escitalopram oxalate (LEXAPRO) 10 mg tablet Take 1 tablet by mouth once daily. oxybutynin ER (DITROPAN XL) 10 mg 24 hr tablet Take 1 tablet by mouth daily at bedtime. evolocumab (REPATHA SURECLICK) 140 mg/mL pnij Inject 140 mg subcutaneously every 2 weeks. nitroglycerin sublingual (NITROQUICK) 0.4 mg SL tablet Dissolve 1 tablet under the tongue every 5 minutes as needed. ticagrelor (BRILINTA) 90 mg tablet Take 1 tablet by mouth twice daily. ezetimibe (ZETIA) 10 mg tablet Take 1 tablet by mouth once daily. aspirin, enteric coated (ADULT LOW DOSE ASPIRIN) 81 mg EC tablet Take 1 tablet by mouth once daily. The Whole Probiotic ([employer]) Take 1 capsule by mouth once daily. Treatment 3-6 months Homocysteine [place] (OrdrIt) Take 2 capsules by mouth daily with food. B-Complex Plus (Pure Encapsulations) Take 1 capsule by mouth daily with food. ONE [place] (Pure Encapsulation) Take 3 capsules by mouth daily with food. Magnesium Citrate 150mg 90 ct[address] (Pure Encapsulations) Take 3 capsules daily. [employer] Multivitamin (Pure Encapsulations) Take 1 capsule by mouth daily with food. Vitamin D3 Liquid (Pure Encapsulations) Take 3-5 drops daily, with meals No current facility-administered medications on file prior to visit. Physical Exam Findings: General exam: Normal appearance, no acute distress Cranial nerves II through XII are intact, no functional deficits noted. Extremeties show no significant range of motion restriction or focal weakness with strength testing. Vibratory testing using tuning fork shows decreased sensation bilaterally in the lower extremities. Deep tendon reflexes are 1 over 4 at patella, and Achilles bilaterally. Assessment: Lumbar spondylosis Neural foraminal stenosis of lumbar spine Status post cervical disc replacement, C4-C5 and C5-C6 Plan: I will reach out to Dr. Riley to coordinate a plan for further evaluation, possibly imaging or additional neurologic testing. Jose Chu DO Addendum: after conferring with Dr. Riley, recommendation is to order MRI of both lumbar and cervical spine, to be performed at [facility] with 3T magnet. order entered. Patient's request for medication is as follows Signed Prescriptions Disp Refills predniSONE (DELTASONE) 10 mg tablet 35 tablet 0 Sig: Take 4 tabs daily x5 days, then 2 tabs daily for 5 days, then 1 tab daily for 5 days. Order entered - please phone pharmacy and notify patient. DO Jose De Leon DO 03/31/2018 11:06 AM Signed Addended by: JOSE CHU DO, V on: 03/31/2018 11:06 AM Modules accepted: Orders Referring Provider: SELF [[id number]] Allergies As of Date: 03/30/2018 (No Known Allergies) Date Reviewed: 03/15/2018 Reviewed by: Alisha Martinez RN - Fully Assessed Reason for Visit: Established Patient [175] Cmt: Bilateral leg pain Primary Visit Diagnosis:Neural foraminal stenosis of lumbar spine [M99.83] Other Visit Diagnoses:Degeneration of intervertebral disc at C4-C5 level [M50.321] Degeneration of intervertebral disc at C5-C6 level [M50.322] S/P cervical disc replacement [Z98.890] Lumbosacral spondylosis without myelopathy [M47.817] Status post insertion of drug-eluting stent into right coronary artery for coronary artery disease [Z95.5] Spinal stenosis of cervical region [M48.02] Spinal stenosis of lumbar region without neurogenic claudication [M48.061] Order(s):predniSONE (DELTASONE) 10 mg tabletTake 4 tabs daily x5 days, then 2 tabs daily for 5 days, then 1 tab daily for 5 days.Disp: 35 tabletRfl: 0 MRI CERVICAL SPINE WO IVCON [[id number]] Order #: [id number] FUTURE MRI LUMBAR SPINE WO IVCON [[id number]] Order #: [id number] FUTURE Prescriptions as of 03/30/2018 Sig: PREDNISONE 10 MG TABLET Take 4 tabs daily x5 days, th* ESCITALOPRAM 10 MG TABLET Take 1 tablet by mouth once d* OXYBUTYNIN CHLORIDE ER 10 MG * Take 1 tablet by mouth daily * EVOLOCUMAB 140 MG/ML SUBCUTAN* Inject 140 mg subcutaneously * NITROGLYCERIN 0.4 MG SUBLINGU* Dissolve 1 tablet under the t* TICAGRELOR 90 MG TABLET Take 1 tablet by mouth twice * EZETIMIBE 10 MG TABLET Take 1 tablet by mouth once d* ASPIRIN 81 MG TABLET,DELAYED * Take 1 tablet by mouth once d* OTC NUTRITIONAL SUPPLEMENT Take 1 capsule by mouth once * OTC NUTRITIONAL SUPPLEMENT Take 2 capsules by mouth valentin* OTC NUTRITIONAL SUPPLEMENT Take 1 capsule by mouth daily* OTC NUTRITIONAL SUPPLEMENT Take 3 capsules by mouth valentin* OTC NUTRITIONAL SUPPLEMENT Take 3 capsules daily. OTC NUTRITIONAL SUPPLEMENT Take 1 capsule by mouth daily* OTC NUTRITIONAL SUPPLEMENT Take 3-5 drops daily, with me* Problem List As Of Date 03/30/2018 Noted Resolved PERS HX TOBACCO USE [Z87.891] INVALID FOR* Abdominal pain, epigastric [R10.13] INVALID FOR*02/18/2010 Attention deficit disorder with hyperactivity [*INVALID FOR* NOCTURIA [R35.1] INVALID FOR* Pain in soft tissues of limb [M79.609] INVALID FOR*02/18/2010 Empyema without mention of fistula [J86.9] INVALID FOR*03/31/2017 Pain in joint, shoulder region [M25.519] INVALID FOR*04/06/2017 Esophagitis, unspecified [K20.9] INVALID FOR*04/06/2017 Acute gastritis without mention of hemorrhage [*INVALID FOR*03/31/2017 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 Tear of medial cartilage or meniscus of knee, c*INVALID FOR*04/06/2017 Lumbar radiculopathy [M54.16] INVALID FOR* ED (erectile dysfunction) [N52.9] INVALID FOR* Low testosterone [E34.9] INVALID FOR*03/31/2017 Benign neoplasm of colon [D12.6] INVALID FOR*03/31/2017 SUMMARY [V999.95] INVALID FOR* More... Unstable angina (HCC) [I20.0] INVALID FOR* More... Dyslipidemia (high LDL; low HDL) [E78.5] INVALID FOR* More... Sinus infection [J32.9] INVALID FOR*12/12/2011 More... Need for prophylactic measure [Z29.9] INVALID FOR*03/31/2017 More... Tubular adenoma of colon [D12.6] INVALID FOR* Presence of drug coated stent in posterior desc*INVALID FOR* ASCVD (arteriosclerotic cardiovascular disease)*INVALID FOR*03/31/2017 ASHD (arteriosclerotic heart disease) [I25.10] INVALID FOR* Right carpal tunnel syndrome [G56.01] INVALID FOR*04/06/2017 CAD (coronary artery disease) [I25.10] INVALID FOR* More... Primary hypertension [I10] INVALID FOR* More... Diarrhea [R19.7] INVALID FOR*03/31/2017 More... Non-ST elevation myocardial infarction (NSTEMI)*INVALID FOR* More... Presence of drug coated stent in left circumfle*INVALID FOR* Lumbar foraminal stenosis [M99.83] INVALID FOR*03/31/2017 Lumbar spondylosis [M47.816] INVALID FOR* Neural foraminal stenosis of lumbar spine [M99.*INVALID FOR* More... Right lumbar radiculopathy [M54.16] INVALID FOR* Status post insertion of drug-eluting stent int*INVALID FOR* Anxiety [F41.9] INVALID FOR* Thoracic or lumbosacral neuritis or radiculitis*INVALID FOR*04/06/2017 Lumbosacral spondylosis without myelopathy [M47*INVALID FOR* Hypertriglyceridemia [E78.1] INVALID FOR*03/31/2017 Rotator cuff syndrome of right shoulder [M75.10*INVALID FOR*04/06/2017 Family history of ischemic heart disease [Z82.4*INVALID FOR* Multiple vessel coronary artery disease [I25.10]INVALID FOR*03/31/2017 Statin intolerance [Z78.9] INVALID FOR* More... Hypogonadism in male [E29.1] Lumbar stenosis [M48.061] INVALID FOR* 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) [E72.12]INVALID FOR* Homozygous for COMT gene [id number] polymorphism*INVALID FOR* Heavy metal exposure [Z77.018] INVALID FOR* Preoperative examination [Z01.818] INVALID FOR* More... 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 Cervical radiculopathy [M54.12] INVALID FOR* S/P cervical disc replacement [Z98.890] INVALID FOR* Acute postoperative pain [G89.18] INVALID FOR* More... Benign prostatic hyperplasia with urinary obstr*INVALID FOR* ACS (acute coronary syndrome) (HCC) [I24.9] INVALID FOR* More... Coronary artery disease involving tunica-biloxi chaves*INVALID FOR* More... Post PTCA [Z98.61] INVALID FOR* More... Chest pain [R07.9] INVALID FOR* More... Prescriptions ordered this encounter Disp Refills Start End PREDNISONE 10 MG TABLET 35 t* 0 03/31/2018 04/15/2018 Sig: Take 4 tabs daily x5 days, then 2 tabs daily for 5 days, then 1 tab daily for 5 days. Follow-up and Disposition History Recorded Encounter Status:Closed by JOSE CHU DO, V on 03/30/18 EMERGENCY DEPARTMENT Observed: 03/23/2018 Status: F Source: CONGRESS SUMMARY 1:44 AM [facility] REPOSITORY [facility] Medical Records Department [address] [place] [address] Emergency Department Summary 03/22/18 1518 MR#: [id number] Acct: [id number] Name: LILIYA ENCINAS Rep #: [id number] : 1950 68 From: Esha Wooten MD PCP: Aquiles Rosado MD Status: DEP ER - ER Visit Summary Date of Service: 03/22/18 Chief Complaint: Chest pain History of Present Illness: The patient is a 68 M with history of coronary artery disease and a total of 4 stents. He had 2 stents placed in January of this year. Patient presents with a one-week history of intermittent upper abdominal pain with some pressure radiation into the lower sternum. He states these episodes would last approximately half an hour and then spontaneously resolved. They did not seem to be brought on by activity and in fact with exertion he did not have significant symptoms. He has not had shortness of breath. This morning he woke up with pressure across the upper abdomen that has persisted throughout the day. It is not changed with food. It does not change with exertion. Physical Examination: Blood pressure is 164/106, otherwise vitals are normal. Patient sitting upright in bed no acute distress. Head neck unremarkable. Heart is regular rate and rhythm. Lung sounds are clear. There is no reproducible chest wall tenderness. Abdomen is soft with tenderness in epigastric as well as in the right upper quadrant regions. There is no guarding or rebound. Active bowel sounds are noted throughout. Test Results: EKG is sinus at 63 with no sign of acute ischemia. CBC, chemistries, LFTs, and lipase are normal. Troponin is less than 0.015. Portable chest x-ray per my reading shows chronic changes only. Emergency Department Course and Treatment: Patient had taken 1 tab of baby aspirin this morning. He is given an additional 243 mg now. Patient's pain is atypical for cardiac etiology. He will be started on antacid to see if this improves his symptoms. He is to return for worsening symptoms or any concerns. Treatment Plan: [] Disposition: Discharge Impression: 1. Atypical chest pain 2. Epigastric pain This note was generated with [employer] dictation software. It may contain incorrect words, spelling, and punctuation that were not noted in review of the chart prior to signing ED Disposition - Plan for ED Patient: Chief Complaint: Chest Pain Referrals: Aquiles Rosado MD [Primary Care Provider] - What to do if you have Problems For any increased pain, shortness of breath, bleeding, nausea or vomiting, chest pain, or any unexpected problems, contact your Primary Care Provider. Call [facility] ([phone]) or report to the closest Emergency Room. Call 911 if necessary. 03/23/18 0144 <Electronically signed by Esha Wooten MD> Date Esha Wooten MD Cosigner Signature (If Indicated): Date CC: Aquiles Rosado MD DISCHARGE INSTRUCTION Observed: 03/22/2018 Status: F Source: GALI 3:40 PM [facility] REPOSITORY [facility] Medical Records Department [address] [place] [address] Discharge Instruction 03/22/18 1539 MR#: [id number] Acct: [id number] Name: HUANGLILIYA Rep #: [id number] : 1950 68 From: Esha Wooten MD PCP: Aquiles Rosado MD Status: REG ER ED Disposition - Plan for ED Patient: Disposition: Home or Assisted Living Chief Complaint: Chest Pain Instructions: ED Chest Pain Atypical Unkn Cause, ED Epigastric Pain UKO Prescriptions: Omeprazole [Prilosec] 20 mg PO DAILY #30 capsule Referrals: Aquiles Rosado MD [Primary Care Provider] - 1 Week What to do if you have Problems For any increased pain, shortness of breath, bleeding, nausea or vomiting, chest pain, or any unexpected problems, contact your Primary Care Provider. Call [facility] ([phone]) or report to the closest Emergency Room. Call 911 if necessary. 03/22/18 1540 <Electronically signed by Esha Wooten MD> Date Esha Wooten MD Cosigner Signature (If Indicated): Date CC: Aquiles Rosado MD CHEST 1 VIEW Observed: 03/22/2018 Status: F Source: CONGRESS (PORTABLE) 3:12 PM [facility] REPOSITORY [facility] Imaging Services [address] [place] [id number] Chest 1 View (Portable) MR#: [id number] Acct: [id number] Name: LILIYA ENCINAS Rep #: [id number] : 1950 M 68 From: Charanjit Wilks MD PCP: Aquiles Rosado MD Status: [facility] ER Study: Chest 1 View (Portable) Date of Exam: 03/22/18 Exam# [id number] Ordering Dr: Esha Wooten MD STUDY: X-RAY CHEST REASON FOR EXAM: Male, 68 years old. Chest pain. TECHNIQUE: Single AP portable view of the chest. COMPARISON: 10/26/2013, 02/01/2018, 02/07/2018.. FINDINGS: The lungs are clear and expanded. Stable chronic scarring in the right costophrenic angle. No gross effusions. Normal size heart. Normal mediastinum and dora. Normal visualized pulmonary arteries. Normal visualized aortic arch and descending thoracic aorta. Normal visualized thoracic spine. Normal visualized ribs, clavicles, and shoulders. Old healed left rib fractures are noted. Soft tissues are unremarkable. RAD/Chest 1 View (Portable) IMPRESSION: No acute process. Electronically Signed: Charanjit Wilks MD at 16:10 EST , Service support , CC: Aquiles Rosado MD; Esha Wooten MD [employer]: Signed CBC W/DIFF, AUTOMATED Collected: 03/22/2018 Status: F Source: GALI 3:00 PM [facility] REPOSITORY TYPE CODE TESTS RESULT OUT OF RANGE REFERENCE UNITS LAB L100.1000 4.4-11.0 K/mm3 Normal WBC 6.2 LAB L100.1200 4.6-6.2 M/mm3 Normal RBC 5.02 LAB L100.1300 13.0-16.5 g/dl Normal HGB 15.5 LAB L100.1400 40-54 % Normal HCT 46.3 LAB L100.1500 80-94 fL Normal MCV 92.2 LAB L100.1600 27.0-32.0 pg Normal MCH 30.9 LAB L100.1700 32-36 g/gl Normal MCHC 33.5 LAB L100.1810 11.6-14.6 % Normal RDW CV 12.9 LAB L100.1820 35.1-43.9 fl Normal RDW SD 43.1 LAB L100.1900 150-450 K/mm3 Normal PLT 242 LAB L100.2000 6.2-12.0 fl Normal MPV 9.4 LAB L100.2100 47-70 % Normal NEUT% 64.4 LAB L100.2200 19-41 % Normal LY% 22.0 LAB L100.2300 0-10 % Normal MONO% 8.1 LAB L100.2400 0-5 % Normal EO% 3.7 LAB L100.2500 0-1 % High BASO% 1.6 LAB L100.2550 0.0-0.9 % Normal IM GRAN % 0.200 Result Comment: IG% - Immature Granulocytes (promyelocytes, myelocytes and metamyelocytes) > 1% indicates that a LEFT SHIFT is Present. LAB L100.2620 2.0-7.7 X10 3/uL Normal Absolute Neut 4.0 LAB L100.2720 0.83-4.51 X10 3/ul Normal Absolute Lymph 1.36 Performed By: #### L100.0100 #### [facility] [address] [place], [address] BASIC METABOLIC Collected: 03/22/2018 Status: F Source: CONGRESS PROFILE (BMP) 3:00 PM [facility] REPOSITORY TYPE CODE TESTS RESULT OUT OF RANGE REFERENCE UNITS LAB L501.0100 74-106 mg/dL Normal GLU 89 Result Comment: Please note revised GLUCOSE reference range effective 2017. LAB L501.1000 7-18 mg/dL Normal BUN 15 LAB L501.1100 0.70-1.30 mg/dL Normal CREAT,SERUM 0.88 Result Comment: The validity of the calculated GFR AND GFRAA in patients over 70 years has not been determined. Clinical correlation is essential. LAB L501.1110 >60 mL/min Normal EST GFR 92 Result Comment: Non- GFR Calc LAB L501.1115 >60 mL/min Normal EST GFR - AA 111 Result Comment: GFR Calc LAB L501.1255 ml/min Normal Estimated CRCL 93.32 LAB L501.1300 10-20 RATIO Normal BUN/CRE 16.9 LAB L501.2200 8.5-10 mg/dL Normal .1 CA 9.0 LAB L501.5300 136-14 mmol/L Normal 5 NA 138 LAB L501.5600 3.5-5. mmol/L Normal 1 K 3.8 LAB L501.5900 98-107 mmol/L Normal CL 104 LAB L501.6100 21.0-3 mmol/L Normal 2.0 CO2 27.0 LAB L501.6200 5-15 Normal GAP 7 Performed By: #### L500.2500, L500.3400, L501.2450, L501.4010 #### [facility] [address] [place], [place], [id number] LIVER PROFILE Collected: 03/22/2018 Status: F Source: CONGRESS 3:00 PM [facility] REPOSITORY TYPE CODE TESTS RESULT OUT OF RANGE REFERENCE UNITS LAB L501.1500 6.4-8.2 g/dL Normal T PROT 7.9 LAB L501.1800 3.2-5.0 g/dL Normal ALB 4.3 LAB L501.1950 2.2-4.2 g/dL Normal GLOB 3.6 LAB L501.4100 15-37 U/L Normal AST 36 LAB L501.4305 45-117 U/L Normal ALK P 62 LAB L501.4405 16-61 U/L Normal ALT 40 LAB L501.4600 0.20-1.00 mg/dL Normal T BILI 0.50 LAB L501.4700 0.00-0.30 mg/dL Normal D BILI 0.15 Performed By: #### L500.2500, L500.3400, L501.2450, L501.4010 #### [facility] [address] [facility] [place], [address] LIPASE Collected: 03/22/2018 Status: F Source: CONGRESS 3:00 PM [facility] REPOSITORY TYPE CODE TESTS RESULT OUT OF RANGE REFERENCE UNITS LAB L501.2450 73-393 U/L Normal LIPASE 131 Performed By: #### L500.2500, L500.3400, L501.2450, L501.4010 #### [facility] [address] [facility] [place], [address] TROPONIN-I Collected: 03/22/2018 Status: F Source: CONGRESS 3:00 PM [facility] REPOSITORY TYPE CODE TESTS RESULT OUT OF RANGE REFERENCE UNITS LAB L501.4010 <0.045 ng/mL Normal < 0.015 TROPONIN-I Result Comment: TROPONIN-I EXPECTED VALUES <0.045 Negative 0.045 - 0.590 Consistent with Cardiac Damage > OR = 0.600 Critical Value Not every elevated troponin is indicative of WI. These values should be used with clinical judgement in examining the patient's clinical picture for diagnosis. To establish a diagnosis of WI versus myocardial injury, there must be a demonstrated rise and/or fall in the troponin values, in addition to ischemic symptoms, EKG changes, new regional wall motion abnormality, and/or angiographical evidence. PLEASE NOTE: REFERENCE RANGES EDITED 17 Performed By: #### L500.2500, L500.3400, L501.2450, L501.4010 #### [facility] [address] [place], [address] PROGRESS Observed: 03/15/2018 Status: COMPLETED Source: VASHON 4:18 PM [facility] REPOSITORY HNO ID: [id number] Author: Lisa Rivers Service: (none) Author Type: Physician Type: Progress Notes Filed: 03/16/2018 8:18 AM Note Text: [facility] [place] [facility]ado Department of Cardiovascular Medicine SECTION OF INTERVENTIONAL CARDIOLOGY OUTPATIENT VISIT DATE March 15, 2018 OUTPATIENT VISIT TYPE ESTABLISHED PRIMARY CARE PHYSICIAN: Lisa Rosado MD [address] [place] [address] CHIEF COMPLAINT: Patient presents with: Follow Up: WI HISTORY OF PRESENT ILLNESS: Mr. Encinas is a 68 year old male who presents today for follow- up visit after several interventions with Dr. Duenas to LAD. I placed his 2014 stent in OM3 for Dr. 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 Lowe and Dr Brown ? ? - CAD s/p PCI to PDA?in 2011 and subsequent PCI to OM3 for NSTEMI in 2013 episode of CP prompting OSH ED visit POC troponin elevated and transferred to CK total and troponin Lab here are negative no ROBERT plan given prior Hx CAD and stents and concern for ACS - proceed with LHC +/- unless subsequent CE elevate here I would not label as nonSTEMI and would not put on heparin unless recurrent CP and/or elevation of CE continue DAPT - asa and brilinta statin intolerance - will need to have PCSK9i pursued by his continuity cards as OP on zetia not on BB d/t bradycardia no ACEI/ARB as we have no evidence for decrease in EF ?Dr. Duenas performed LHC: ?The LM was engaged with a 6F XB 3.5 and wired with a Verratta. iFR of the LAD was 0.83 with a significant step up across the mid LAD lesion on pullback. The lesion was predilated with a 2.5x15, stented with a 3.0x24 Synergy and posted with the stent balloon at 14 james. Repeat iFR of the proximal LAD lesion was 0.96. Final angio showed no complications and good flow. Dr. Duenas performed second LHC and addition PCI readmitted with episodes of chest discomfort relieved with NTG. Coronary angios today show widely patent mid-LAD stent. 60% angiographic stenosis proximal LAD. By iFR 0.85-0.86. IVUS: large mixed palque with significant lumen stenosis. Stented succesfully with Synergy EES. 2017 remains on DAPT asa+brilinta asa 81 mg daily for LIFE Brilinta for ONE YEAR no interruption on zetia - prescribed Repatha - did not get Rx as his insurance did cover but his co-pay is 600 per month and he does not meet criteria for income for [facility] drug program he would like to see if Preventive Cards can help get cost lower - will put in consult he remains active in functional medicine program with diet and zetia his LDL is < 70 angina is relieved s/p several PCI's with Rubens he is emotionally moved that he feels better with PCI efforts - we reviewed films in the office - Hyperlipidemia Target NCEP/ATP III most aggressive guideline goals for treatment Use diet, exercise and Rx Target specifically LDL =or< 70 mg/dL Patients with atherosclerotic vascular disease are candidates for HIGH INTENSITY statin therapy (Atorvastatin 80 mg daily or Rosuvastatin 20-40 mg daily) per ATP IV on zetia and diet only preventive consult for PCSK9i - see above He denies chest pain, shortness of breath, dyspnea on exertion, orthopnea, PND, palpitations, lightheadedness, syncope, claudication, leg swelling, cough and wheezing. PAST CARDIAC HISTORY: See HPI PAST MEDICAL HISTORY Diagnosis Date - Acute gastritis without mention of hemorrhage - ADHD (attention deficit hyperactivity disorder) on Lexapro - ASHD (arteriosclerotic heart disease) 04/05/2012 stent x2, Dr. 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 Riley - Testicular lesion right, s/p removal - Vitamin D insufficiency PAST SURGICAL HISTORY Procedure Laterality Date - CC PCI CORONARY INTERVENT 03/2013 X2 - COLONOSCOP W/ OR W/O [facility] SPEC TA and hyperplastic polyps removed. - COLONOSCOP W/ OR W/O [facility]RS SPEC 04/13/2017 Colonoscopy - Poor prep - 5 year follow up - COLONOSCOPY W/BX 09/11/11 repeat 5 years - EGD W/O [facility] SPECIMEN W/BX 08/26/07 - HEART SURGERY HX - PAST SURGICAL HISTORY OF removal of right testicle for pre cancer - PAST SURGICAL HISTORY OF 07/26/2006 right lung scrapping and cleaning for impiemia - PAST SURGICAL HISTORY OF remote sinus surgery - PAST SURGICAL HISTORY OF 03/22/2009 microdiscectomy- lumbar - PAST SURGICAL HISTORY OF 05/2009 cerebral meningioma - PAST SURGICAL HISTORY OF 07/2010 Micro discectomy low back - PAST SURGICAL HISTORY OF 07/2013 lumbar discectomy - PAST SURGICAL HISTORY OF Left 04/2015 ankle microfracture, fusion of forefoot - PAST SURGICAL HISTORY OF 2016 L3-L5 revision posterior decompression with TLIF - PAST SURGICAL HISTORY OF 2017 2 level cervical disc replacement - REPAIR ING HERNIA,5+Y/O,REDUCIBL right Hernia repair, inguinal - REVISE MEDIAN N/CARPAL TUNNEL SURG left Carpal tunnel decomp - REVISE MEDIAN N/CARPAL TUNNEL SURG Right 12/02/2016 Right carpal tunnel release - TRANSURETHRAL ELEC-SURG PROSTATECTOM 09/2007 - VASECTOMY SOCIAL HISTORY Social History Substance Use Topics - Smoking status: Former Smoker Packs/day: 1.00 Years: 10.00 Types: Cigarettes Quit date: 05/03/1977 - Smokeless tobacco: Never Used - Alcohol use 7.5 oz/week 5 Glasses of Wine (5oz) per week FAMILY HISTORY Problem Relation Age of Onset - None Mother - Heart Father 80 stents x 2 - Arthritis Father ALLERGIES: ALLERGIES No Known Allergies MEDICATIONS: evolocumab (REPATHA SURECLICK) 140 mg/mL pnij Inject 140 mg subcutaneously every 2 weeks. nitroglycerin sublingual (NITROQUICK) 0.4 mg SL tablet Dissolve 1 tablet under the tongue every 5 minutes as needed. ticagrelor (BRILINTA) 90 mg tablet Take 1 tablet by mouth twice daily. oxybutynin ER (DITROPAN XL) 10 mg 24 hr tablet Take 1 tablet by mouth daily at bedtime. ezetimibe (ZETIA) 10 mg tablet Take 1 tablet by mouth once daily. aspirin, enteric coated (ADULT LOW DOSE ASPIRIN) 81 mg EC tablet Take 1 tablet by mouth once daily. The Whole Probiotic ([employer]) Take 1 capsule by mouth once daily. 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 B-Complex Plus (Pure Encapsulations) Take 1 capsule by mouth daily with food. [employer] Multivitamin (Pure Encapsulations) Take 1 capsule by mouth daily with food. Vitamin D3 Liquid (Pure Encapsulations) Take 3-5 drops daily, with meals ONE [place] (Pure Encapsulation) Take 3 capsules by mouth daily with food. Magnesium Citrate 150mg 90 ct[address] (Pure Encapsulations) Take 3 capsules daily. REVIEW OF SYSTEMS: See HPI. PHYSICAL EXAMINATION: BP 138/64 Pulse 65 Temp (Src) 98.4 (Oral) Ht 6' 1 (1.85m) Wt 195 lb (88.5kg) SpO2 99% BMI 25.73 kg/(m2). General: Well appearing, in no acute distress, speaking in complete sentences. Skin: No clubbing, no cyanosis. Head/Eyes: Extra ocular movements intact Mouth: Teeth in good repair. Neck: No jugular venous distention, no carotid bruits, carotids have a normal upstroke, no palpable thyromegaly. Lungs: Clear to auscultation and no rales Heart: Regular rhythm, PMI not displaced, S1, S2 normal, no S3, no S4, no heaves, no rub and no murmur. PV Pulses:Pulses intact Abdomen: Soft, nontender, bowel sounds normal, no palpable organomegaly, no bruits. Extremities: No peripheral edema . Grade 2/4 distal pulses bilaterally. Edema Scale: No Musculoskeletal: Normal gait and ambulation Neuro: Oriented to time, place and person CARDIOVASCULAR MEDICINE TESTING: No Cardiovascular testing perfomed today. There were no tests performed for review. IMPRESSION: Mr. Encinas is a 68 year old male - CAD s/p PCI to PDA?in 2011 and subsequent PCI to OM3 for NSTEMI in 2013 episode of CP prompting OSH ED visit POC troponin elevated and transferred to CK total and troponin Lab here are negative no ROBERT plan given prior Hx CAD and stents and concern for ACS - proceed with LHC +/- unless subsequent CE elevate here I would not label as nonSTEMI and would not put on heparin unless recurrent CP and/or elevation of CE continue DAPT - asa and brilinta statin intolerance - will need to have PCSK9i pursued by his continuity cards as OP on zetia not on BB d/t bradycardia no ACEI/ARB as we have no evidence for decrease in EF ?Dr. Duenas performed LHC: ?The LM was engaged with a 6F XB 3.5 and wired with a Verratta. iFR of the LAD was 0.83 with a significant step up across the mid LAD lesion on pullback. The lesion was predilated with a 2.5x15, stented with a 3.0x24 Synergy and posted with the stent balloon at 14 james. Repeat iFR of the proximal LAD lesion was 0.96. Final angio showed no complications and good flow. Dr. Duenas performed second LHC and addition PCI readmitted with episodes of chest discomfort relieved with NTG. Coronary angios today show widely patent mid-LAD stent. 60% angiographic stenosis proximal LAD. By iFR 0.85-0.86. IVUS: large mixed palque with significant lumen stenosis. Stented succesfully with Synergy EES. 2017 remains on DAPT asa+brilinta asa 81 mg daily for LIFE Brilinta for ONE YEAR no interruption on zetia - prescribed Repatha - did not get Rx as his insurance did cover but his co-pay is 600 per month and he does not meet criteria for income for pharma drug program he would like to see if Preventive Cards can help get cost lower - will put in consult he remains active in functional medicine program with diet and zetia his LDL is < 70 angina is relieved s/p several PCI's with Rubens he is emotionally moved that he feels better with PCI efforts - we reviewed films in the office - Hyperlipidemia Target NCEP/ATP III most aggressive guideline goals for treatment Use diet, exercise and Rx Target specifically LDL =or< 70 mg/dL Patients with atherosclerotic vascular disease are candidates for HIGH INTENSITY statin therapy (Atorvastatin 80 mg daily or Rosuvastatin 20-40 mg daily) per ATP IV on zetia and diet only preventive consult for PCSK9i - see above Lisa Rivers MD March 16, 2018 8:15 AM CNOV Observed: 03/15/2018 Status: COMPLETED Source: VASHON 3:15 PM [facility] REPOSITORY Office Visit (PERVMN) LILIYA ENCINAS Tushar ([id number]) 1950 M Date Time Provider Department 03/15/18 3:15 PM LISA RIVERS During your visit today, we recorded the following information about you: Temperature Pulse Blood pressure Weight 98.4 degrees 65/minute 138/64 88.5 kg Height 1.854 m Lisa Rivers MD 03/16/2018 8:18 AM Signed [facility] [facility] Department of Cardiovascular Medicine SECTION OF INTERVENTIONAL CARDIOLOGY OUTPATIENT VISIT DATE March 15, 2018 OUTPATIENT VISIT TYPE ESTABLISHED PRIMARY CARE PHYSICIAN: Lisa Rosado MD [address] [place] [address] CHIEF COMPLAINT: Patient presents with: Follow Up: WI HISTORY OF PRESENT ILLNESS: Mr. Encinas is a 68 year old male who presents today for follow- up visit after several interventions with Dr. Duenas to LAD. I placed his 2014 stent in OM3 for Dr. 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 Lowe and Dr Brown ? ? - CAD s/p PCI to PDA?in 2011 and subsequent PCI to OM3 for NSTEMI in 2013 episode of CP prompting OSH ED visit POC troponin elevated and transferred to CK total and troponin Lab here are negative no ROBERT plan given prior Hx CAD and stents and concern for ACS - proceed with LHC +/- unless subsequent CE elevate here I would not label as nonSTEMI and would not put on heparin unless recurrent CP and/or elevation of CE continue DAPT - asa and brilinta statin intolerance - will need to have PCSK9i pursued by his continuity cards as OP on zetia not on BB d/t bradycardia no ACEI/ARB as we have no evidence for decrease in EF ?Dr. Duenas performed LHC: ?The LM was engaged with a 6F XB 3.5 and wired with a Verratta. iFR of the LAD was 0.83 with a significant step up across the mid LAD lesion on pullback. The lesion was predilated with a 2.5x15, stented with a 3.0x24 Synergy and posted with the stent balloon at 14 james. Repeat iFR of the proximal LAD lesion was 0.96. Final angio showed no complications and good flow. Dr. Duenas performed second LHC and addition PCI readmitted with episodes of chest discomfort relieved with NTG. Coronary angios today show widely patent mid-LAD stent. 60% angiographic stenosis proximal LAD. By iFR 0.85-0.86. IVUS: large mixed palque with significant lumen stenosis. Stented succesfully with Synergy EES. 2017 remains on DAPT asa+brilinta asa 81 mg daily for LIFE Brilinta for ONE YEAR no interruption on zetia - prescribed Repatha - did not get Rx as his insurance did cover but his co-pay is 600 per month and he does not meet criteria for income for pharma drug program he would like to see if Preventive Cards can help get cost lower - will put in consult he remains active in functional medicine program with diet and zetia his LDL is < 70 angina is relieved s/p several PCI's with Rubens he is emotionally moved that he feels better with PCI efforts - we reviewed films in the office - Hyperlipidemia Target NCEP/ATP III most aggressive guideline goals for treatment Use diet, exercise and Rx Target specifically LDL =or< 70 mg/dL Patients with atherosclerotic vascular disease are candidates for HIGH INTENSITY statin therapy (Atorvastatin 80 mg daily or Rosuvastatin 20-40 mg daily) per ATP IV on zetia and diet only preventive consult for PCSK9i - see above He denies chest pain, shortness of breath, dyspnea on exertion, orthopnea, PND, palpitations, lightheadedness, syncope, claudication, leg swelling, cough and wheezing. PAST CARDIAC HISTORY: See HPI PAST MEDICAL HISTORY Diagnosis Date - Acute gastritis without mention of hemorrhage - ADHD (attention deficit hyperactivity disorder) on Lexapro - ASHD (arteriosclerotic heart disease) 04/05/2012 stent x2, Dr. 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 Riley - Testicular lesion right, s/p removal - Vitamin D insufficiency PAST SURGICAL HISTORY Procedure Laterality Date - CC PCI CORONARY INTERVENT 03/2013 X2 - COLONOSCOP W/ OR W/O [facility] SPEC TA and hyperplastic polyps removed. - COLONOSCOP W/ OR W/O [facility] SPEC 04/13/2017 Colonoscopy - Poor prep - 5 year follow up - COLONOSCOPY W/BX 09/11/11 repeat 5 years - EGD W/O [facility] SPECIMEN W/BX 08/26/07 - HEART SURGERY HX - PAST SURGICAL HISTORY OF removal of right testicle for pre cancer - PAST SURGICAL HISTORY OF 07/26/2006 right lung scrapping and cleaning for impiemia - PAST SURGICAL HISTORY OF remote sinus surgery - PAST SURGICAL HISTORY OF 03/22/2009 microdiscectomy- lumbar - PAST SURGICAL HISTORY OF 05/2009 cerebral meningioma - PAST SURGICAL HISTORY OF 07/2010 Micro discectomy low back - PAST SURGICAL HISTORY OF 07/2013 lumbar discectomy - PAST SURGICAL HISTORY OF Left 04/2015 ankle microfracture, fusion of forefoot - PAST SURGICAL HISTORY OF 2016 L3-L5 revision posterior decompression with TLIF - PAST SURGICAL HISTORY OF 2017 2 level cervical disc replacement - REPAIR ING HERNIA,5+Y/O,REDUCIBL right Hernia repair, inguinal - REVISE MEDIAN N/CARPAL TUNNEL SURG left Carpal tunnel decomp - REVISE MEDIAN N/CARPAL TUNNEL SURG Right 12/02/2016 Right carpal tunnel release - TRANSURETHRAL ELEC-SURG PROSTATECTOM 09/2007 - VASECTOMY SOCIAL HISTORY Social History Substance Use Topics - Smoking status: Former Smoker Packs/day: 1.00 Years: 10.00 Types: Cigarettes Quit date: 05/03/1977 - Smokeless tobacco: Never Used - Alcohol use 7.5 oz/week 5 Glasses of Wine (5oz) per week FAMILY HISTORY Problem Relation Age of Onset - None Mother - Heart Father 80 stents x 2 - Arthritis Father ALLERGIES: ALLERGIES No Known Allergies MEDICATIONS: evolocumab (REPATHA SURECLICK) 140 mg/mL pnij Inject 140 mg subcutaneously every 2 weeks. nitroglycerin sublingual (NITROQUICK) 0.4 mg SL tablet Dissolve 1 tablet under the tongue every 5 minutes as needed. ticagrelor (BRILINTA) 90 mg tablet Take 1 tablet by mouth twice daily. oxybutynin ER (DITROPAN XL) 10 mg 24 hr tablet Take 1 tablet by mouth daily at bedtime. ezetimibe (ZETIA) 10 mg tablet Take 1 tablet by mouth once daily. aspirin, enteric coated (ADULT LOW DOSE ASPIRIN) 81 mg EC tablet Take 1 tablet by mouth once daily. The Whole Probiotic ([employer]) Take 1 capsule by mouth once daily. 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 B-Complex Plus (Pure Encapsulations) Take 1 capsule by mouth daily with food. [employer] Multivitamin (Pure Encapsulations) Take 1 capsule by mouth daily with food. Vitamin D3 Liquid (P[employer]capsulations) Take 3-5 drops daily, with meals ONE [place] (Pure Encapsulation) Take 3 capsules by mouth daily with food. Magnesium Citrate 150mg 90 ct. (Pure Encapsulations) Take 3 capsules daily. REVIEW OF SYSTEMS: See HPI. PHYSICAL EXAMINATION: BP 138/64 Pulse 65 Temp (Src) 98.4 (Oral) Ht 6' 1 (1.85m) Wt 195 lb (88.5kg) SpO2 99% BMI 25.73 kg/(m2). General: Well appearing, in no acute distress, speaking in complete sentences. Skin: No clubbing, no cyanosis. Head/Eyes: Extra ocular movements intact Mouth: Teeth in good repair. Neck: No jugular venous distention, no carotid bruits, carotids have a normal upstroke, no palpable thyromegaly. Lungs: Clear to auscultation and no rales Heart: Regular rhythm, PMI not displaced, S1, S2 normal, no S3, no S4, no heaves, no rub and no murmur. PV Pulses:Pulses intact Abdomen: Soft, nontender, bowel sounds normal, no palpable organomegaly, no bruits. Extremities: No peripheral edema . Grade 2/4 distal pulses bilaterally. Edema Scale: No Musculoskeletal: Normal gait and ambulation Neuro: Oriented to time, place and person CARDIOVASCULAR MEDICINE TESTING: No Cardiovascular testing perfomed today. There were no tests performed for review. IMPRESSION: Mr. Encinas is a 68 year old male - CAD s/p PCI to PDA?in 2011 and subsequent PCI to OM3 for NSTEMI in 2013 episode of CP prompting OSH ED visit POC troponin elevated and transferred to CK total and troponin Lab here are negative no ROBERT plan given prior Hx CAD and stents and concern for ACS - proceed with LHC +/- unless subsequent CE elevate here I would not label as nonSTEMI and would not put on heparin unless recurrent CP and/or elevation of CE continue DAPT - asa and brilinta statin intolerance - will need to have PCSK9i pursued by his continuity cards as OP on zetia not on BB d/t bradycardia no ACEI/ARB as we have no evidence for decrease in EF ?Dr. Duenas performed LHC: ?The LM was engaged with a 6F XB 3.5 and wired with a [place]. iFR of the LAD was 0.83 with a significant step up across the mid LAD lesion on pullback. The lesion was predilated with a 2.5x15, stented with a 3.0x24 Synergy and posted with the stent balloon at 14 james. Repeat iFR of the proximal LAD lesion was 0.96. Final angio showed no complications and good flow. Dr. Duenas performed second LHC and addition PCI readmitted with episodes of chest discomfort relieved with NTG. Coronary angios today show widely patent mid-LAD stent. 60% angiographic stenosis proximal LAD. By iFR 0.85-0.86. IVUS: large mixed palque with significant lumen stenosis. Stented succesfully with Synergy EES. 2017 remains on DAPT asa+brilinta asa 81 mg daily for LIFE Brilinta for ONE YEAR no interruption on zetia - prescribed Repatha - did not get Rx as his insurance did cover but his co-pay is 600 per month and he does not meet criteria for income for pharma drug program he would like to see if Preventive Cards can help get cost lower - will put in consult he remains active in functional medicine program with diet and zetia his LDL is < 70 angina is relieved s/p several PCI's with Rubens he is emotionally moved that he feels better with PCI efforts - we reviewed films in the office - Hyperlipidemia Target NCEP/ATP III most aggressive guideline goals for treatment Use diet, exercise and Rx Target specifically LDL =or< 70 mg/dL Patients with atherosclerotic vascular disease are candidates for HIGH INTENSITY statin therapy (Atorvastatin 80 mg daily or Rosuvastatin 20-40 mg daily) per ATP IV on zetia and diet only preventive consult for PCSK9i - see above Lisa Rivers MD March 16, 2018 8:15 AM Referring Provider: LISA RIVERS [[id number]] Allergies As of Date: 03/15/2018 (No Known Allergies) Date Reviewed: 03/15/2018 Reviewed by: Alisha Martinez RN - Fully Assessed Reason for Visit: Follow Up [171] Cmt: [place] Primary Visit Diagnosis:Coronary artery disease involving tunica-biloxi coronary artery without angina pectoris, unspecified whether tunica-biloxi or transplanted heart [I25.10] Other Visit Diagnosis:Hyperlipidemia LDL goal <70 [E78.5] Order(s):CONSULT TO CARD REHAB PHASE II [479696] Order #: [id number]: 1 CONSULT TO PREVENTIVE CARD [9043] Order #: [id number]: 1 Prescriptions as of 03/15/2018 Sig: EVOLOCUMAB 140 MG/ML SUBCUTAN* Inject 140 mg subcutaneously * NITROGLYCERIN 0.4 MG SUBLINGU* Dissolve 1 tablet under the t* TICAGRELOR 90 MG TABLET Take 1 tablet by mouth twice * OXYBUTYNIN CHLORIDE ER 10 MG * Take 1 tablet by mouth daily * EZETIMIBE 10 MG TABLET Take 1 tablet by mouth once d* ASPIRIN 81 MG TABLET,DELAYED * Take 1 tablet by mouth once d* OTC NUTRITIONAL SUPPLEMENT Take 1 capsule by mouth once * OTC NUTRITIONAL SUPPLEMENT Take 2 capsules by mouth valentin* OTC NUTRITIONAL SUPPLEMENT Take 1 capsule by mouth daily* OTC NUTRITIONAL SUPPLEMENT Take 1 capsule by mouth daily* OTC NUTRITIONAL SUPPLEMENT Take 3-5 drops daily, with me* OTC NUTRITIONAL SUPPLEMENT Take 3 capsules by mouth valentin* OTC NUTRITIONAL SUPPLEMENT Take 3 capsules daily. Medication notes this encounter EVOLOCUMAB 140 MG/ML SUBCUTANEOUS PEN INJECTOR >> Alisha Martinez RN 03/15/2018 3:25 PM >> ALISHA MARTINEZ RN WedMar 15, 2018 3:25 PM Not on at this time OTC NUTRITIONAL SUPPLEMENT >> Alisha Martinez RN 03/15/2018 3:26 PM >> ALISHA MARTINEZ RN WedMar 15, 2018 3:26 PM Taking one tab daily Problem List As Of Date 03/15/2018 Noted Resolved PERS HX TOBACCO USE [Z87.891] INVALID FOR* Abdominal pain, epigastric [R10.13] INVALID FOR*02/18/2010 Attention deficit disorder with hyperactivity [*INVALID FOR* NOCTURIA [R35.1] INVALID FOR* Pain in soft tissues of limb [M79.609] INVALID FOR*02/18/2010 Empyema without mention of fistula [J86.9] INVALID FOR*03/31/2017 Pain in joint, shoulder region [M25.519] INVALID FOR*04/06/2017 Esophagitis, unspecified [K20.9] INVALID FOR*04/06/2017 Acute gastritis without mention of hemorrhage [*INVALID FOR*03/31/2017 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 Tear of medial cartilage or meniscus of knee, c*INVALID FOR*04/06/2017 Lumbar radiculopathy [M54.16] INVALID FOR* ED (erectile dysfunction) [N52.9] INVALID FOR* Low testosterone [E34.9] INVALID FOR*03/31/2017 Benign neoplasm of colon [D12.6] INVALID FOR*03/31/2017 SUMMARY [V999.95] INVALID FOR* More... Unstable angina (HCC) [I20.0] INVALID FOR* Priority: A More... Dyslipidemia (high LDL; low HDL) [E78.5] INVALID FOR* Priority: C More... Sinus infection [J32.9] INVALID FOR*12/12/2011 More... Need for prophylactic measure [Z29.9] INVALID FOR*03/31/2017 More... Tubular adenoma of colon [D12.6] INVALID FOR* Presence of drug coated stent in posterior desc*INVALID FOR* ASCVD (arteriosclerotic cardiovascular disease)*INVALID FOR*03/31/2017 ASHD (arteriosclerotic heart disease) [I25.10] INVALID FOR* Right carpal tunnel syndrome [G56.01] INVALID FOR*04/06/2017 CAD (coronary artery disease) [I25.10] INVALID FOR* Priority: A More... Primary hypertension [I10] INVALID FOR* Priority: C More... Diarrhea [R19.7] INVALID FOR*03/31/2017 More... Non-ST elevation myocardial infarction (NSTEMI)*INVALID FOR* More... Presence of drug coated stent in left circumfle*INVALID FOR* Lumbar foraminal stenosis [M99.83] INVALID FOR*03/31/2017 Lumbar spondylosis [M47.816] INVALID FOR* Priority: A Neural foraminal stenosis of lumbar spine [M99.*INVALID FOR* Priority: A More... 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 Cervical radiculopathy [M54.12] INVALID FOR* S/P cervical disc replacement [Z98.890] INVALID FOR* Priority: C Acute postoperative pain [G89.18] INVALID FOR* Priority: D More... Benign prostatic hyperplasia with urinary obstr*INVALID FOR* ACS (acute coronary syndrome) ([facility]) [I24.9] INVALID FOR* Priority: B More... Coronary artery disease involving tunica-biloxi chaves*INVALID FOR* More... Post PTCA [Z98.61] INVALID FOR* More... Chest pain [R07.9] INVALID FOR* Priority: C More... Medications Discontinued During This Encounter isosorbide mononitrate ER (IMDUR) 30* 30 t* 1 02/24/2018 03/15/2018 Route: ORAL Sig: Take 1 tablet by mouth once daily. Disc: Discontinued by another Health Care Provider traZODone (DESYREL) 50 mg tablet 30 t* 0 01/04/2018 03/15/2018 Route: ORAL Sig: Take 1 tablet by mouth daily at bedtime. Patient taking differently: Take 50 mg by mouth daily at bedtime. taking 1/2 tablet at bedtime Disc: Discontinued by Patient Encounter Status:Closed by LISA RIVERS MD on 03/16/18 CNOV Observed: 02/24/2018 Status: COMPLETED Source: [place] 11:00 AM [facility] REPOSITORY Office Visit (CATHMN) LILIYA ENCINAS ([id number]) 1950 Date Time Provider Department 02/24/18 11:00 AM KATIE CAREY) MELYSSA During your visit today, we recorded the following information about you: Pulse Blood pressure Weight Height 64/minute 107/68 87.5 kg 1.854 m Katie Carey PA-C 02/28/2018 12:38 AM Signed [facility] [place] Johnny Machado Department of Cardiovascular Medicine SECTION OF INTERVENTIONAL CARDIOLOGY OUTPATIENT VISIT DATE February 24, 2018 OUTPATIENT VISIT TYPE ESTABLISHED PRIMARY CARE PHYSICIAN: Lisa Rosado MD [id number] [phone] CHIEF COMPLAINT: Patient presents with: Follow Up HISTORY OF PRESENT ILLNESS: Mr. Encinas is a 68 year old male with a history of CAD s/p PCI to PDA (2011), PCI to OM3 for NSTEMI (2013), recent PCI to the mid LAD (02/02/18), HTN, HLD and GERD, who presents today for follow-up visit status post successful PCI of proximal LAD with 3.5x16 Synergy on 02/09/18. The patient was admitted for NSTEMI 02/02/18 and underwent PCI to mid LAD at that time. He was readmitted 02/09/18 with recurrent chest pain. [facility] 02/09/18: LMT: - Mild 30% focal disease at bifurcation. LAD: - Severe 70% focal stenosis after first diagonal. iFR 0.88, decreased to 0.85 after administration of intracoronary nitroglycerin. - Patent mid LAD stent. - First diagonal with mild diffuse disease. LCX: - Proximal circumflex narrowed with 50% focal disease. - Patent distal stent. RCA: - Mid RCA with mild 30% focal disease. - Patent PDA stent. Successful PCI of mid-LAD with 3.5x16 Synergy on 02/09/18. Post PCI patient was transferred to the cardiac step-down in stable condition. ? Peak CK/Troponin 148/<0.010. Echo with EF 64% ? Added nitrodur x 1 month (spasm) ? The patient remained HD stable. The patient was discharged in stable condition Seen by PCP post discharge, per office note: Since discharge, has been taking medications as prescribed. Admits to headache and lightheadedness with full nitro patch. Requesting decreased dose if possible. Denies angina, palpitations, SOB, syncope. Able to perform all ADLs since home and has even been out bow hunting. Avoiding strenuous exercise until seen by cardiology. Cath site healed well without erythema, swelling, discharge, or pain. Since discharge, he denies any further episodes of chest pain and feels good except for the headache he continues to have. He does not want to stop using the nitro patch as he fears he will have chest pain from spasm. Discussion regarding changing patch to Imdur. He denies chest pain, shortness of breath, dyspnea on exertion, orthopnea, PND, palpitations, lightheadedness, syncope, claudication, leg swelling, cough and wheezing. PAST CARDIAC HISTORY: See HPI PAST MEDICAL HISTORY Diagnosis Date - Acute gastritis without mention of hemorrhage - ADHD (attention deficit hyperactivity disorder) on Lexapro - ASHD (arteriosclerotic heart disease) 04/05/2012 stent x2, Dr. 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 Riley - Testicular lesion right, s/p removal - Vitamin D insufficiency PAST SURGICAL HISTORY Procedure Laterality Date - CC PCI CORONARY INTERVENT 03/2013 X2 - COLONOSCOP W/ OR W/O [facility] SPEC TA and hyperplastic polyps removed. - COLONOSCOP W/ OR W/O [facility] SPEC 04/13/2017 Colonoscopy - Poor prep - 5 year follow up - COLONOSCOPY W/BX 09/11/11 repeat 5 years - EGD W/O [facility] SPECIMEN W/BX 08/26/07 - HEART SURGERY HX - PAST SURGICAL HISTORY OF removal of right testicle for pre cancer - PAST SURGICAL HISTORY OF 07/26/2006 right lung scrapping and cleaning for impiemia - PAST SURGICAL HISTORY OF remote sinus surgery - PAST SURGICAL HISTORY OF 03/22/2009 microdiscectomy- lumbar - PAST SURGICAL HISTORY OF 05/2009 cerebral meningioma - PAST SURGICAL HISTORY OF 07/2010 Micro discectomy low back - PAST SURGICAL HISTORY OF 07/2013 lumbar discectomy - PAST SURGICAL HISTORY OF Left 04/2015 ankle microfracture, fusion of forefoot - PAST SURGICAL HISTORY OF 2016 L3-L5 revision posterior decompression with TLIF - PAST SURGICAL HISTORY OF 2017 2 level cervical disc replacement - REPAIR ING HERNIA,5+Y/O,REDUCIBL right Hernia repair, inguinal - REVISE MEDIAN N/CARPAL TUNNEL SURG left Carpal tunnel decomp - REVISE MEDIAN N/CARPAL TUNNEL SURG Right 12/02/2016 Right carpal tunnel release - TRANSURETHRAL ELEC-SURG PROSTATECTOM 09/2007 - VASECTOMY SOCIAL HISTORY Social History Substance Use Topics - Smoking status: Former Smoker Packs/day: 1.00 Years: 10.00 Types: Cigarettes Quit date: 05/03/1977 - Smokeless tobacco: Never Used - Alcohol use 7.5 oz/week 5 Glasses of Wine (5oz) per week FAMILY HISTORY Problem Relation Age of Onset - None Mother - Heart Father 80 stents x 2 - Arthritis Father ALLERGIES: ALLERGIES No Known Allergies MEDICATIONS: nitroglycerin (NITRODERM, MINITRAN) 0.2 mg/hr Apply 1 Patch as directed once daily. evolocumab (REPATHA SURECLICK) 140 mg/mL pnij Inject 140 mg subcutaneously every 2 weeks. nitroglycerin sublingual (NITROQUICK) 0.4 mg SL tablet Dissolve 1 tablet under the tongue every 5 minutes as needed. alirocumab (PRALUENT PEN) 75 mg/mL pnij Inject 75 mg subcutaneously every 2 weeks. ticagrelor (BRILINTA) 90 mg tablet Take 1 tablet by mouth twice daily. oxybutynin ER (DITROPAN XL) 10 mg 24 hr tablet Take 1 tablet by mouth daily at bedtime. traZODone (DESYREL) 50 mg tablet Take 1 tablet by mouth daily at bedtime. tamsulosin ER (FLOMAX) 0.4 mg cp24 Take 1 capsule by mouth once daily. ezetimibe (ZETIA) 10 mg tablet Take 1 tablet by mouth once daily. aspirin, enteric coated (ADULT LOW DOSE ASPIRIN) 81 mg EC tablet Take 1 tablet by mouth once daily. The Whole Probiotic ([employer]) Take 1 capsule by mouth once daily. Treatment 3-6 months Homocysteine [place] ([employer]) Take 2 capsules by mouth daily with food. B-Complex Plus ([employer]) Take 1 capsule by mouth daily with food. ONE [place] (Pure [employer]capsulation) Take 3 capsules by mouth daily with food. Magnesium Citrate 150mg 90 ct. ([employer]) Take 3 capsules daily. [employer] Multivitamin ([employer]) Take 1 capsule by mouth daily with food. Vitamin D3 Liquid ([employer]) Take 3-5 drops daily, with meals REVIEW OF SYSTEMS: HEENT: Denies recent severe headaches, visual changes, difficulty swallowing. GASTROINTESTINAL: Denies melena, hematochezia, heartburn. GENITOURINARY: Denies hematuria. MUSCULOSKELETAL: Denies claudication or muscle myalgias. NEUROLOGIC: Denies unilateral paralysis, slurred speech. SKIN: Denies skin ulcers or lesions. HEMATOLOGICAL: Denies gingival bleeding, or prolonged epistaxis. ENDOCRINE:Denies heat or cold intolerance, excessive thirst or urination. All Other Remaining ROS negative. PHYSICAL EXAMINATION: BP 107/68 Pulse 64 Ht 6' 1 (1.85m) Wt 193 lb (87.5kg) BMI 25.47 kg/(m2). General:well developed Skin:warm and dry Neck:no JVD, no carotid bruits, thyroid not palpable, no tenderness Lungs:clear to auscultation and no rales Heart:regular rhythm, S1, S2 normal, no S3, no S4, no heaves, no thrills and no murmur PV Pulses:pulses intact, no femoral bruit, no varicosities Abdomen:soft, non-tender, bowel sounds present Extremities:normal exam, distal pulses intact bilateral Edema Scale:no Musculoskeletal:Normal gait and ambulation, Able to undergo exercise testing and/or participate in an exercise program. Neurologic:Oriented to time, place and person, Mood AND Affect: appropriate CARDIOVASCULAR MEDICINE TESTING: No Cardiovascular testing perfomed today. There were no tests performed for review. IMPRESSION Mr. Encinas is a 68 year old male with a history of CAD s/p PCI to PDA (2011), PCI to OM3 for NSTEMI (2013), recent PCI to the mid-LAD (02/02/18), HTN, HLD and GERD, who presents today for follow-up visit status post successful PCI of proximal LAD with 3.5x16 Synergy on 02/09/18. (I25.110) Coronary artery disease involving tunica-biloxi coronary artery of tunica-biloxi heart with unstable angina pectoris (HCC) (primary encounter diagnosis) (Z95.5) Status post coronary artery stent placement - Status post successful PCI to the mid-LAD 02/02/18 - Status post successful PCI of proximal LAD with 3.5x16 Synergy on 02/09/18. - Stable CAD, remainsasymptomatic - Risk factor modification - Nitrodur x 1 month (spasm) was added - Pt intolerant of patch - Rx provided for Imdur - Continue aspirin, Brilinta, Imdur, awaiting to start Repatha - Follow up with Dr. Rivers 03/15/18 (I10) Primary hypertension - BP stable - Not currently taking meds (E78.5) Hyperlipidemia, unspecified hyperlipidemia type - LDL: 65 - Patient is intolerant to statins - Continue Zetia, awaiting to start Repatha I spent > 60 minutes in the visit, with more than 50% of the total vyhd-wa-wcfm time of the visit in counseling / coordination of care. Katie Carey PA-C Referring Provider: WILMA RENEE (YUMIKO) [[id number]] Allergies As of Date: 02/24/2018 (No Known Allergies) Date Reviewed: 02/24/2018 Reviewed by: aKtie Cassidy) Maycol - Fully Assessed Reason for Visit: Follow Up [171] Primary Visit Diagnosis:Coronary artery disease involving tunica-biloxi coronary artery of tunica-biloxi heart with unstable angina pectoris (HCC) [I25.110] Other Visit Diagnoses:Status post coronary artery stent placement [Z95.5] Primary hypertension [I10] Hyperlipidemia, unspecified hyperlipidemia type [E78.5] Order(s):isosorbide mononitrate ER (IMDUR) 30 mg 24 hr tabletTake 1 tablet by mouth once daily.Disp: 30 tabletRfl: 1 Prescriptions as of 02/24/2018 Sig: EVOLOCUMAB 140 MG/ML SUBCUTAN* Inject 140 mg subcutaneously * NITROGLYCERIN 0.4 MG SUBLINGU* Dissolve 1 tablet under the t* TICAGRELOR 90 MG TABLET Take 1 tablet by mouth twice * OXYBUTYNIN CHLORIDE ER 10 MG * Take 1 tablet by mouth daily * TRAZODONE 50 MG TABLET Take 1 tablet by mouth daily * Patient taking differently: Take 50 mg by mouth daily at * EZETIMIBE 10 MG TABLET Take 1 tablet by mouth once d* ASPIRIN 81 MG TABLET,DELAYED * Take 1 tablet by mouth once d* OTC NUTRITIONAL SUPPLEMENT Take 1 capsule by mouth once * OTC NUTRITIONAL SUPPLEMENT Take 2 capsules by mouth valentin* OTC NUTRITIONAL SUPPLEMENT Take 1 capsule by mouth daily* OTC NUTRITIONAL SUPPLEMENT Take 3 capsules by mouth valentin* OTC NUTRITIONAL SUPPLEMENT Take 3 capsules daily. OTC NUTRITIONAL SUPPLEMENT Take 1 capsule by mouth daily* OTC NUTRITIONAL SUPPLEMENT Take 3-5 drops daily, with me* ISOSORBIDE MONONITRATE ER 30 * Take 1 tablet by mouth once d* Problem List As Of Date 02/24/2018 Noted Resolved PERS HX TOBACCO USE [Z87.891] INVALID FOR* Abdominal pain, epigastric [R10.13] INVALID FOR*02/18/2010 Attention deficit disorder with hyperactivity [*INVALID FOR* NOCTURIA [R35.1] INVALID FOR* Pain in soft tissues of limb [M79.609] INVALID FOR*02/18/2010 Empyema without mention of fistula [J86.9] INVALID FOR*03/31/2017 Pain in joint, shoulder region [M25.519] INVALID FOR*04/06/2017 Esophagitis, unspecified [K20.9] INVALID FOR*04/06/2017 Acute gastritis without mention of hemorrhage [*INVALID FOR*03/31/2017 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 Tear of medial cartilage or meniscus of knee, c*INVALID FOR*04/06/2017 Lumbar radiculopathy [M54.16] INVALID FOR* ED (erectile dysfunction) [N52.9] INVALID FOR* Low testosterone [E34.9] INVALID FOR*03/31/2017 Benign neoplasm of colon [D12.6] INVALID FOR*03/31/2017 SUMMARY [V999.95] INVALID FOR* More... Unstable angina (HCC) [I20.0] INVALID FOR* Priority: A More... Dyslipidemia (high LDL; low HDL) [E78.5] INVALID FOR* Priority: C More... Sinus infection [J32.9] INVALID FOR*12/12/2011 More... Need for prophylactic measure [Z29.9] INVALID FOR*03/31/2017 More... Tubular adenoma of colon [D12.6] INVALID FOR* Presence of drug coated stent in posterior desc*INVALID FOR* ASCVD (arteriosclerotic cardiovascular disease)*INVALID FOR*03/31/2017 ASHD (arteriosclerotic heart disease) [I25.10] INVALID FOR* Right carpal tunnel syndrome [G56.01] INVALID FOR*04/06/2017 CAD (coronary artery disease) [I25.10] INVALID FOR* Priority: A More... Primary hypertension [I10] INVALID FOR* Priority: C More... Diarrhea [R19.7] INVALID FOR*03/31/2017 More... Non-ST elevation myocardial infarction (NSTEMI)*INVALID FOR* More... Presence of drug coated stent in left circumfle*INVALID FOR* Lumbar foraminal stenosis [M99.83] INVALID FOR*03/31/2017 Lumbar spondylosis [M47.816] INVALID FOR* Priority: A Neural foraminal stenosis of lumbar spine [M99.*INVALID FOR* Priority: A More... 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 Cervical radiculopathy [M54.12] INVALID FOR* S/P cervical disc replacement [Z98.890] INVALID FOR* Priority: C Acute postoperative pain [G89.18] INVALID FOR* Priority: D More... Benign prostatic hyperplasia with urinary obstr*INVALID FOR* ACS (acute coronary syndrome) ([facility]) [I24.9] INVALID FOR* Priority: B More... Coronary artery disease involving tunica-biloxi chaves*INVALID FOR* More... Post PTCA [Z98.61] INVALID FOR* More... Chest pain [R07.9] INVALID FOR* Priority: C More... Prescriptions ordered this encounter Disp Refills Start End ISOSORBIDE MONONITRATE ER 30 MG TABL* 30 t* 1 02/24/2018 Route: ORAL Sig: Take 1 tablet by mouth once daily. Medications Discontinued During This Encounter tamsulosin ER (FLOMAX) 0.4 mg cp24 30 c* 11 09/29/2017 02/24/2018 Route: ORAL Sig: Take 1 capsule by mouth once daily. Disc: Reason for discontinue is not on file. alirocumab (PRALUENT PEN) 75 mg/mL p* 6 Pen 3 02/10/2018 02/24/2018 Class: [facility] [place] [facility] Route: SUBCUTANEOUS Sig: Inject 75 mg subcutaneously every 2 weeks. Disc: Reason for discontinue is not on file. nitroglycerin (NITRODERM, MINITRAN) * 20 P* 1 02/17/2018 02/24/2018 Route: TRANSDERMAL Sig: Apply 1 Patch as directed once daily. Disc: Reason for discontinue is not on file. Disposition: Return for Follow up with Dr. Rivers 03/15/18. Follow-up and Disposition History Recorded Letter Text CARDIOLOGY [address] [place], [place] [address] February 24, 2018 TO WHOM IT MAY CONCERN: This is to confirm that Liliya Encinas had an appointment and was seen at the [facility] in the CARDIOLOGY Department by Katie Carey PA-C on 02/24/2018. 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, however, he should not work overnight for a period of 6 months Sincerely yours, Katie Carey PA-C Encounter Status:Closed by KATIE CAREY PA-C on 02/28/18 CBC Collected: 02/24/2018 Status: F Source: VASHON 10:23 AM [facility] REPOSITORY TYPE CODE TESTS RESULT OUT OF REFERENCE UNITS RANGE LAB WBC 3.70-11.00 k/uL WBC 6.09 LAB RBC 4.20-6.00 m/uL RBC 4.75 LAB HGB 13.0-17.0 g/dL Hemoglobin 14.5 LAB HCT 39.0-51.0 % Hematocrit 44.7 LAB MCV 80.0-100.0 fL MCV 94.1 LAB MCH 26.0-34.0 pG MCH 30.5 LAB MCHC 30.5-36.0 g/dL MCHC 32.4 LAB RDWCV 11.5-15.0 % RDW-CV 12.6 LAB PLTCT 150-400 k/uL Platelet Count 271 LAB MPV 9.0-12.7 fL MPV 9.3 LAB ABSNUC <0.01 k/uL Absolute nRBC <0.01 Performed By: #### CBC, BMP #### [facility] [address] [place], [place] [address] BASIC METABOLIC PANL Collected: 02/24/2018 Status: F Source: VASHON 10:23 AM [facility] REPOSITORY TYPE CODE TESTS RESULT OUT OF REFERENCE UNITS RANGE LAB GLU 74-99 mg/dL Glucose 98 Result Comment: The [place] Diabetes Association (ADA) provides guidance for cutoff values for fasting glucose and random glucose. The ADA defines fasting as no caloric intake for at least 8 hours. Fas ting plasma glucose results between 100 to 125 mg/dL indicate increased risk for diabetes (prediabetes). Fasting plasma glucose results greater than or equal to 126 mg/dL meet the criteria for diagnosis of diabetes. In the absence of unequivocal hyperglycemia, results should be confirmed by repeat testing. In a patient with classic symptoms of hyperglycemia or hyperglycemic crisis, random plasma glucose results greater than or equal to 200 mg/dL meet the criteria for diagnosis of diabetes. Reference: Standards of Medical Care in Diabetes 2016, [place] Diabetes Association. Diabetes Care. 2016.39(Suppl 1). LAB BUN 9-24 mg/dL BUN 16 LAB CRET 0.73-1.22 mg/dL Creatinine 0.81 LAB NA 136-144 mmol/L Sodium 139 LAB K 3.7-5.1 mmol/L Potassium 4.4 LAB CL 97-105 mmol/L Chloride 102 LAB CO2 22-30 mmol/L CO2 25 LAB AGAP 9-18 mmol/L Anion Gap 12 LAB CA 8.5-10.2 mg/dL Calcium, Total 9.6 LAB GFRAA eGFR- Amer. >60 LAB GFRNAA . eGFR-All Other Races >60 Result Comment: eGFR (Estimated GFR) Units of measure: mL/min/1.73 meters squared eGFR is derived from the reexpressed MDRD Study equation using the following parameters: serum creatinine, age, gender and race. The creatinine assay has been calibrated to be traceable to IDMS. An eGFR <60 mL/min/1.73m2 for >3 months is consistent with chronic kidney disease. Refer to KDOQI guidelines for clinical interpretation. In patients with unstable renal function, e.g. those with acute kidney injury, the eGFR may not accurately reflect actual GFR. Performed By: #### CBC, BMP #### [facility] [address] [place], [place] [address] ECG COMPLETE W Observed: 02/24/2018 Status: F Source: VASHON INTERPRETATION 10:08 AM [facility] REPOSITORY NAME : LILIYA ENCINAS PID : [id number] : 1950 Gender : Male Race : ORD : [id number] Procedure Date : Feb 24 2018 10:08:15 Edit Date : Feb 25 2018 11:19:04 Diagnosis:SINUS BRADYCARDIA OTHERWISE NORMAL ECG Confirmed by NAFISA HARVEY MD ([id number]) on 02/25/2018 11:19:00 AM Ventricular Rate : 55 BPM Atrial Rate : 55 BPM P-R Interval : 152 ms QRS Duration : 102 ms Q-T Interval : 436 ms QTC Calculation(Bezet) : 417 ms P [place] : 46 degrees R [place] : 60 degrees T [place] : 58 degrees Test Reason : Location : 314 : J14 Overread By : NAFISA HARVEY MD Edited By : NAFISA HARVEY MD Referred By : LISA RIVERS Acquired by : WILMA PONCE PROGRESS Observed: 02/24/2018 Status: COMPLETED Source: VASHON 7:46 AM [facility] REPOSITORY HNO ID: [id number] Author: Katie Carey (Pa) Service: (none) Author Type: Physician Floor Technician Type: Progress Notes Filed: 02/28/2018 12:38 AM Note Text: [facility] [place] [facility] Department of Cardiovascular Medicine SECTION OF INTERVENTIONAL CARDIOLOGY OUTPATIENT VISIT DATE February 24, 2018 OUTPATIENT VISIT TYPE ESTABLISHED PRIMARY CARE PHYSICIAN: Lisa Rosado MD [address] [place] [address] CHIEF COMPLAINT: Patient presents with: Follow Up HISTORY OF PRESENT ILLNESS: Mr. Encinas is a 68 year old male with a history of CAD s/p PCI to PDA (2011), PCI to OM3 for NSTEMI (2013), recent PCI to the mid LAD (02/02/18), HTN, HLD and GERD, who presents today for follow-up visit status post successful PCI of proximal LAD with 3.5x16 Synergy on 02/09/18. The patient was admitted for NSTEMI 02/02/18 and underwent PCI to mid LAD at that time. He was readmitted 02/09/18 with recurrent chest pain. LHC 02/09/18: LMT: - Mild 30% focal disease at bifurcation. LAD: - Severe 70% focal stenosis after first diagonal. iFR 0.88, decreased to 0.85 after administration of intracoronary nitroglycerin. - Patent mid LAD stent. - First diagonal with mild diffuse disease. LCX: - Proximal circumflex narrowed with 50% focal disease. - Patent distal stent. RCA: - Mid RCA with mild 30% focal disease. - Patent PDA stent. Successful PCI of mid-LAD with 3.5x16 Synergy on 02/09/18. Post PCI patient was transferred to the cardiac step-down in stable condition. ? Peak CK/Troponin 148/<0.010. Echo with EF 64% ? Added nitrodur x 1 month (spasm) ? The patient remained HD stable. The patient was discharged in stable condition Seen by PCP post discharge, per office note: Since discharge, has been taking medications as prescribed. Admits to headache and lightheadedness with full nitro patch. Requesting decreased dose if possible. Denies angina, palpitations, SOB, syncope. Able to perform all ADLs since home and has even been out bow hunting. Avoiding strenuous exercise until seen by cardiology. Cath site healed well without erythema, swelling, discharge, or pain. Since discharge, he denies any further episodes of chest pain and feels good except for the headache he continues to have. He does not want to stop using the nitro patch as he fears he will have chest pain from spasm. Discussion regarding changing patch to Imdur. He denies chest pain, shortness of breath, dyspnea on exertion, orthopnea, PND, palpitations, lightheadedness, syncope, claudication, leg swelling, cough and wheezing. PAST CARDIAC HISTORY: See HPI PAST MEDICAL HISTORY Diagnosis Date - Acute gastritis without mention of hemorrhage - ADHD (attention deficit hyperactivity disorder) on Lexapro - ASHD (arteriosclerotic heart disease) 04/05/2012 stent x2, Dr. 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 Riley - Testicular lesion right, s/p removal - Vitamin D insufficiency PAST SURGICAL HISTORY Procedure Laterality Date - CC PCI CORONARY INTERVENT 03/2013 X2 - COLONOSCOP W/ OR W/O [facility] SPEC TA and hyperplastic polyps removed. - COLONOSCOP W/ OR W/O [facility] SPEC 04/13/2017 Colonoscopy - Poor prep - 5 year follow up - COLONOSCOPY W/BX 09/11/11 repeat 5 years - EGD W/O [facility] SPECIMEN W/BX 08/26/07 - HEART SURGERY HX - PAST SURGICAL HISTORY OF removal of right testicle for pre cancer - PAST SURGICAL HISTORY OF 07/26/2006 right lung scrapping and cleaning for impiemia - PAST SURGICAL HISTORY OF remote sinus surgery - PAST SURGICAL HISTORY OF 03/22/2009 microdiscectomy- lumbar - PAST SURGICAL HISTORY OF 05/2009 cerebral meningioma - PAST SURGICAL HISTORY OF 07/2010 Micro discectomy low back - PAST SURGICAL HISTORY OF 07/2013 lumbar discectomy - PAST SURGICAL HISTORY OF Left 04/2015 ankle microfracture, fusion of forefoot - PAST SURGICAL HISTORY OF 2017 L3-L5 revision posterior decompression with TLIF - PAST SURGICAL HISTORY OF 2018 2 level cervical disc replacement - REPAIR ING HERNIA,5+Y/O,REDUCIBL right Hernia repair, inguinal - REVISE MEDIAN N/CARPAL TUNNEL SURG left Carpal tunnel decomp - REVISE MEDIAN N/CARPAL TUNNEL SURG Right 12/02/2016 Right carpal tunnel release - TRANSURETHRAL ELEC-SURG PROSTATECTOM 09/2007 - VASECTOMY SOCIAL HISTORY Social History Substance Use Topics - Smoking status: Former Smoker Packs/day: 1.00 Years: 10.00 Types: Cigarettes Quit date: 05/03/1977 - Smokeless tobacco: Never Used - Alcohol use 7.5 oz/week 5 Glasses of Wine (5oz) per week FAMILY HISTORY Problem Relation Age of Onset - None Mother - Heart Father 80 stents x 2 - Arthritis Father ALLERGIES: ALLERGIES No Known Allergies MEDICATIONS: nitroglycerin (NITRODERM, MINITRAN) 0.2 mg/hr Apply 1 Patch as directed once daily. evolocumab (REPATHA SURECLICK) 140 mg/mL pnij Inject 140 mg subcutaneously every 2 weeks. nitroglycerin sublingual (NITROQUICK) 0.4 mg SL tablet Dissolve 1 tablet under the tongue every 5 minutes as needed. alirocumab (PRALUENT PEN) 75 mg/mL pnij Inject 75 mg subcutaneously every 2 weeks. ticagrelor (BRILINTA) 90 mg tablet Take 1 tablet by mouth twice daily. oxybutynin ER (DITROPAN XL) 10 mg 24 hr tablet Take 1 tablet by mouth daily at bedtime. traZODone (DESYREL) 50 mg tablet Take 1 tablet by mouth daily at bedtime. tamsulosin ER (FLOMAX) 0.4 mg cp24 Take 1 capsule by mouth once daily. ezetimibe (ZETIA) 10 mg tablet Take 1 tablet by mouth once daily. aspirin, enteric coated (ADULT LOW DOSE ASPIRIN) 81 mg EC tablet Take 1 tablet by mouth once daily. The Whole Probiotic ([employer]) Take 1 capsule by mouth once daily. Treatment 3-6 months Homocysteine [place] (OrdrIt) Take 2 capsules by mouth daily with food. B-Complex Plus (Pure Encapsulations) Take 1 capsule by mouth daily with food. ONE [place] (Pure Encapsulation) Take 3 capsules by mouth daily with food. Magnesium Citrate 150mg 90 ct[address] (Pure Encapsulations) Take 3 capsules daily. PureGenomics Multivitamin (Pure Encapsulations) Take 1 capsule by mouth daily with food. Vitamin D3 Liquid (Pure Encapsulations) Take 3-5 drops daily, with meals REVIEW OF SYSTEMS: HEENT: Denies recent severe headaches, visual changes, difficulty swallowing. GASTROINTESTINAL: Denies melena, hematochezia, heartburn. GENITOURINARY: Denies hematuria. MUSCULOSKELETAL: Denies claudication or muscle myalgias. NEUROLOGIC: Denies unilateral paralysis, slurred speech. SKIN: Denies skin ulcers or lesions. HEMATOLOGICAL: Denies gingival bleeding, or prolonged epistaxis. ENDOCRINE:Denies heat or cold intolerance, excessive thirst or urination. All Other Remaining ROS negative. PHYSICAL EXAMINATION: BP 107/68 Pulse 64 Ht 6' 1 (1.85m) Wt 193 lb (87.5kg) BMI 25.47 kg/(m2). General:well developed Skin:warm and dry Neck:no JVD, no carotid bruits, thyroid not palpable, no tenderness Lungs:clear to auscultation and no rales Heart:regular rhythm, S1, S2 normal, no S3, no S4, no heaves, no thrills and no murmur PV Pulses:pulses intact, no femoral bruit, no varicosities Abdomen:soft, non-tender, bowel sounds present Extremities:normal exam, distal pulses intact bilateral Edema Scale:no Musculoskeletal:Normal gait and ambulation, Able to undergo exercise testing and/or participate in an exercise program. Neurologic:Oriented to time, place and person, Mood AND Affect: appropriate CARDIOVASCULAR MEDICINE TESTING: No Cardiovascular testing perfomed today. There were no tests performed for review. IMPRESSION Mr. Encinas is a 68 year old male with a history of CAD s/p PCI to PDA (2011), PCI to OM3 for NSTEMI (2013), recent PCI to the mid- LAD (02/02/18), HTN, HLD and GERD, who presents today for follow-up visit status post successful PCI of proximal LAD with 3.5x16 Synergy on 02/09/18. (I25.110) Coronary artery disease involving tunica-biloxi coronary artery of tunica-biloxi heart with unstable angina pectoris (HCC) (primary encounter diagnosis) (Z95.5) Status post coronary artery stent placement - Status post successful PCI to the mid-LAD 02/02/18 - Status post successful PCI of proximal LAD with 3.5x16 Synergy on 02/09/18. - Stable CAD, remainsasymptomatic - Risk factor modification - Nitrodur x 1 month (spasm) was added - Pt intolerant of patch - Rx provided for Imdur - Continue aspirin, Brilinta, Imdur, awaiting to start Repatha - Follow up with Dr. Rivers 03/15/18 (I10) Primary hypertension - BP stable - Not currently taking meds (E78.5) Hyperlipidemia, unspecified hyperlipidemia type - LDL: 65 - Patient is intolerant to statins - Continue Zetia, awaiting to start Repatha I spent > 60 minutes in the visit, with more than 50% of the total woeg-pr-rpjj time of the visit in counseling / coordination of care. Katie Carey PA-C PROGRESS Observed: 02/17/2018 Status: COMPLETED Source: VASHON 10:22 AM [facility] REPOSITORY O ID: [id number] Author: Mine ElmoreRn) Brandon RN Service: (none) Author Type: Registered Nurse Type: Progress Notes Filed: 02/18/2018 1:41 PM Note Text: [facility] received prescription(s) for Repatha [employer] from [facility]'s office. Benefits investigation was conducted, indicating that a prior authorization is required. PA was initiated for a formulary exception with [employer] via phone and pending review. Plan Name: Kristyripts Plan Agent: [employer] [employer] Phone/Fax: PH: [phone] Case: [id number] Timeline: 24 hrs (if provided) Mine Taylor RN PROGRESS Observed: 02/17/2018 Status: COMPLETED Source: VASHON 10:22 AM [facility] REPOSITORY HNO ID: [id number] Author: Mine Agustin) [place] Taylor Service: (none) Author Type: Registered Nurse Type: Progress Notes Filed: 02/18/2018 1:41 PM Note Text: [facility] received prescription(s) for Repatha from [facility]'s office. Benefits investigation was conducted, indicating that a prior authorization is required. PA was approved with details listed below. Plan Name: Maripts Plan Agent: [employer] Phone/Fax: PH:[phone] PA reference number: [id number] Approval Dates: 11/19/17 - 02/17/19 Co-pay: $566.31 Patient will be contacted regarding Safety Net Assistance program. Prescriptions will now be processed through [facility] for determination of next steps. Mine Taylor RN PROGRESS Observed: 02/17/2018 Status: COMPLETED Source: VASHON 10:22 AM [facility] REPOSITORY HNO ID: [id number] Author: Priyanka Butterfield (Store Specialist) Service: (none) Author Type: (none) Type: Progress Notes Filed: 02/18/2018 2:08 PM Note Text: Spoke to patient, Liliya Encinas who confirmed s/he the medication copays are unaffordable. Unfortunately, there currently no foundation assistance available for patient's diagnosis. Discussed pt eligibility for the Safety Net Patient Assistance Program, and pt meets the current income guidelines for the program. The following documents are required by the program for submission: ? Application ? Proof of Income ? Prior Authorization Letter I explained the next steps to proceed with patient assistance. Application was sent to pt via e-mail ( ) per their request to be signed and completed. Emphasized importance of returning all required documents in a timely matter, and the estimated turnaround for review of the application once submitted. S/he expressed understanding of the information we provided today, and received our contact information for the pharmacy if s/he had any other questions. Dr. Watts - we will be faxing an application to your office which requires your signature. Please sign where indicated and return via fax to [phone]. PROGRESS Observed: 02/16/2018 Status: COMPLETED Source: VASHON 10:42 AM [facility] REPOSITORY O ID: [id number] Author: Lisa Patel) Ashlee Service: (none) Author Type: Physician Type: Progress Notes Filed: 02/16/2018 1:17 PM Note Text: Chief Complaint Patient presents with: Hospital Follow Up: TCM HPI Liliya Encinas is a 68 year old male who presents here today for Hospital Discharge Follow up/TCM. Patient was initially evaluated at [facility] ED after complaint of anginal chest pain on 02/02. Found to have normal EKG, but troponins increased to 0.05 and diagnosed with NSTEMI. Underwent cardiac cath on 02/02 with finding of narrowing in LAD, and stent was placed successfully. Discharged home with rx for nitro patch and Brillinta and told to follow up with cardiology later that month. Developed recurrent chest pain on 02/07 and went back to ED at [facility] and was admitted from 02/08 to 02/09 and underwent repeat cath with second stent placement to LAD. 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 Since discharge, has been taking medications as prescribed. Admits to headache and lightheadedness with full nitro patch. Requesting decreased dose if possible. Denies angina, palpitations, SOB, syncope. Able to perform all ADLs since home and has even been out bow hunting. Avoiding strenuous exercise until seen by cardiology. Cath site healed well without erythema, swelling, discharge, or pain. Past medical history, appointments, medications, allergies reviewed. Previous Medical History PAST MEDICAL HISTORY Diagnosis Date - Acute gastritis without mention of hemorrhage - ADHD (attention deficit hyperactivity disorder) on Lexapro - ASHD (arteriosclerotic heart disease) 04/05/2012 stent x2, Dr. 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 Riley - Testicular lesion right, s/p removal - Vitamin D insufficiency Previous Surgical History PAST SURGICAL HISTORY Procedure Laterality Date - CC PCI CORONARY INTERVENT 03/2013 X2 - COLONOSCOP W/ OR W/O [facility] SPEC TA and hyperplastic polyps removed. - COLONOSCOP W/ OR W/O [facility] SPEC 04/13/2017 Colonoscopy - Poor prep - 5 year follow up - COLONOSCOPY W/BX 09/11/11 repeat 5 years - EGD W/O [facility] SPECIMEN W/BX 08/26/07 - HEART SURGERY HX - PAST SURGICAL HISTORY OF removal of right testicle for pre cancer - PAST SURGICAL HISTORY OF 07/26/2006 right lung scrapping and cleaning for impiemia - PAST SURGICAL HISTORY OF remote sinus surgery - PAST SURGICAL HISTORY OF 03/22/2009 microdiscectomy- lumbar - PAST SURGICAL HISTORY OF 05/2009 cerebral meningioma - PAST SURGICAL HISTORY OF 07/2010 Micro discectomy low back - PAST SURGICAL HISTORY OF 07/2013 lumbar discectomy - PAST SURGICAL HISTORY OF Left 04/2015 ankle microfracture, fusion of forefoot - PAST SURGICAL HISTORY OF 2016 L3-L5 revision posterior decompression with TLIF - PAST SURGICAL HISTORY OF 2017 2 level cervical disc replacement - REPAIR ING HERNIA,5+Y/O,REDUCIBL right Hernia repair, inguinal - REVISE MEDIAN N/CARPAL TUNNEL SURG left Carpal tunnel decomp - REVISE MEDIAN N/CARPAL TUNNEL SURG Right 12/02/2016 Right carpal tunnel release - TRANSURETHRAL ELEC-SURG PROSTATECTOM 09/2007 - VASECTOMY Family History FAMILY HISTORY Problem Relation Age of Onset - None Mother - Heart Father 80 stents x 2 - Arthritis Father Patient Allergies ALLERGIES No Known Allergies Current Medications Current Outpatient Prescriptions on File Prior to Visit: nitroglycerin (NITRODERM, MINITRAN) 0.4 mg/hr Apply 1 Patch as directed once daily. nitroglycerin sublingual (NITROQUICK) 0.4 mg SL tablet Dissolve 1 tablet under the tongue every 5 minutes as needed. alirocumab (PRALUENT PEN) 75 mg/mL pnij Inject 75 mg subcutaneously every 2 weeks. ticagrelor (BRILINTA) 90 mg tablet Take 1 tablet by mouth twice daily. oxybutynin ER (DITROPAN XL) 10 mg 24 hr tablet Take 1 tablet by mouth daily at bedtime. traZODone (DESYREL) 50 mg tablet Take 1 tablet by mouth daily at bedtime. (Patient taking differently: Take 50 mg by mouth daily at bedtime. taking 1/2 tablet at bedtime ) tamsulosin ER (FLOMAX) 0.4 mg cp24 Take 1 capsule by mouth once daily. ezetimibe (ZETIA) 10 mg tablet Take 1 tablet by mouth once daily. aspirin, enteric coated (ADULT LOW DOSE ASPIRIN) 81 mg EC tablet Take 1 tablet by mouth once daily. The Whole Probiotic ([employer]) Take 1 capsule by mouth once daily. Treatment 3-6 months Homocysteine [place] ([employer]) Take 2 capsules by mouth daily with food. B-Complex Plus (Pure Encapsulations) Take 1 capsule by mouth daily with food. ONE [place] (Pure Encapsulation) Take 3 capsules by mouth daily with food. Magnesium Citrate 150mg 90 ct[address] (Pure Encapsulations) Take 3 capsules daily. [employer] Multivitamin (Pure Encapsulations) Take 1 capsule by mouth daily with food. Vitamin D3 Liquid (Pure Encapsulations) Take 3-5 drops daily, with meals No current facility-administered medications on file prior to visit. Social History Social History Marital status: Spouse name: Steph Years of education: Number of children: 5 Occupational History Occupation Employer Comment [employer]* Social History Main Topics Smoking status: Former Smoker Packs/day: 1.00 Years: 10.00 Types: Cigarettes Quit date: 05/03/1977 Smokeless tobacco: Never Used Alcohol use: Yes 7.5 oz/week Glasses of Wine (5oz): 5 per week Drug use: No Review of Symptoms REVIEW OF SYSTEMS See HPI EXAM: BP 106/78 Pulse 60 Resp 12 Wt 88 kg (194 lb) SpO2 96% BMI 25.60 kg/m? General Appearance: Well appearing, alert, in no acute distress, well-hydrated, well nourished.. Skin: Skin color, texture, turgor normal, no suspicious rashes or lesions. Lungs: Lungs clear to auscultation. No wheezing, rhonchi, rales. Heart: RRR without murmur, gallop, or rubs. No ectopy. Abdomen: Normal abdominal exam, Abdomen soft, non-tender. Bowel sounds normal. No masses, organomegaly. Extremities: No deformities, edema, skin discoloration, clubbing or cyanosis. Good capillary refill. . Health Maintenance List PNEUMOVAX AGE 65 AND OVER WITH 5YR LOOKBACK(1) due on 03/31/2018 DTAP,TDAP,TD(2 - Td) due on 04/18/2018 ANNUAL PCP TEAM CHRONIC DISEASE VISIT due on 09/29/2018 BP CONTROLLED (<130/80) due on 01/10/2019 LDL CHOLESTEROL due on 02/02/2019 DIABETES SCREEN due on 02/10/2021 COLORECTAL CANCER SCREENING,SEE MODIFIER due on 04/13/2022 LIPID SCREEN due on 02/02/2023 PROSTATE CANCER SCREENING DISCUSSION Completed ADULT PREVNAR-13 Completed INFLUENZA Completed HEPATITIS C SCREENING Completed ASSESSMENT/PLAN: 1. Coronary artery disease involving tunica-biloxi coronary artery, angina presence unspecified, unspecified whether tunica-biloxi or transplanted heart - ICD9: 414.01, ICD10: I25.10 (primary diagnosis) S/p PCI x2. Asymptomatic. Continue medical management as recommended. F/u with cardiology regarding side effects from nitro patch. Keep schedule OV in April and call with concerns PRN. 2. Unstable angina (HCC) - ICD9: 411.1, ICD10: I20.0 See above. 3. Headache, unspecified headache type - ICD9: 784.0, ICD10: R51 See above. 4. Hospital discharge follow-up - ICD9: V67.59, ICD10: Z09 See above. Lisa Rosado MD CNOV Observed: 02/16/2018 Status: COMPLETED Source: [place] 10:40 AM [facility] REPOSITORY Office Visit (FAMPWS) LILIYA ENCINAS ([id number]) 1950 M Date Time Provider Department 02/16/18 10:40 AM LISA ROSADO) RONEN During your visit today, we recorded the following information about you: Pulse Respiration Blood pressure Weight 60/minute 12/minute 106/78 88 kg Lisa Rosado MD 02/16/2018 1:17 PM Signed Chief Complaint Patient presents with: Hospital Follow Up: TCM HPI Liliya Encinas is a 68 year old male who presents here today for Hospital Discharge Follow up/TCM. Patient was initially evaluated at [facility] ED after complaint of anginal chest pain on 02/02. Found to have normal EKG, but troponins increased to 0.05 and diagnosed with NSTEMI. Underwent cardiac cath on 02/02 with finding of narrowing in LAD, and stent was placed successfully. Discharged home with rx for nitro patch and Brillinta and told to follow up with cardiology later that month. Developed recurrent chest pain on 02/07 and went back to ED at [facility] and was admitted from 02/08 to 02/09 and underwent repeat cath with second stent placement to LAD. 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 Since discharge, has been taking medications as prescribed. Admits to headache and lightheadedness with full nitro patch. Requesting decreased dose if possible. Denies angina, palpitations, SOB, syncope. Able to perform all ADLs since home and has even been out bow hunting. Avoiding strenuous exercise until seen by cardiology. Cath site healed well without erythema, swelling, discharge, or pain. Past medical history, appointments, medications, allergies reviewed. Previous Medical History PAST MEDICAL HISTORY Diagnosis Date - Acute gastritis without mention of hemorrhage - ADHD (attention deficit hyperactivity disorder) on Lexapro - ASHD (arteriosclerotic heart disease) 04/05/2012 stent x2, Dr. 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 Riley - Testicular lesion right, s/p removal - Vitamin D insufficiency Previous Surgical History PAST SURGICAL HISTORY Procedure Laterality Date - CC PCI CORONARY INTERVENT 03/2013 X2 - COLONOSCOP W/ OR W/O [facility] SPEC TA and hyperplastic polyps removed. - COLONOSCOP W/ OR W/O [facility] SPEC 04/13/2017 Colonoscopy - Poor prep - 5 year follow up - COLONOSCOPY W/BX 09/11/11 repeat 5 years - EGD W/O [facility] SPECIMEN W/BX 08/26/07 - HEART SURGERY HX - PAST SURGICAL HISTORY OF removal of right testicle for pre cancer - PAST SURGICAL HISTORY OF 07/26/2006 right lung scrapping and cleaning for impiemia - PAST SURGICAL HISTORY OF remote sinus surgery - PAST SURGICAL HISTORY OF 03/22/2009 microdiscectomy- lumbar - PAST SURGICAL HISTORY OF 05/2009 cerebral meningioma - PAST SURGICAL HISTORY OF 07/2010 Micro discectomy low back - PAST SURGICAL HISTORY OF 07/2013 lumbar discectomy - PAST SURGICAL HISTORY OF Left 04/2015 ankle microfracture, fusion of forefoot - PAST SURGICAL HISTORY OF 2017 L3-L5 revision posterior decompression with TLIF - PAST SURGICAL HISTORY OF 2018 2 level cervical disc replacement - REPAIR ING HERNIA,5+Y/O,REDUCIBL right Hernia repair, inguinal - REVISE MEDIAN N/CARPAL TUNNEL SURG left Carpal tunnel decomp - REVISE MEDIAN N/CARPAL TUNNEL SURG Right 12/02/2016 Right carpal tunnel release - TRANSURETHRAL ELEC-SURG PROSTATECTOM 09/2007 - VASECTOMY Family History FAMILY HISTORY Problem Relation Age of Onset - None Mother - Heart Father 80 stents x 2 - Arthritis Father Patient Allergies ALLERGIES No Known Allergies Current Medications Current Outpatient Prescriptions on File Prior to Visit: nitroglycerin (NITRODERM, MINITRAN) 0.4 mg/hr Apply 1 Patch as directed once daily. nitroglycerin sublingual (NITROQUICK) 0.4 mg SL tablet Dissolve 1 tablet under the tongue every 5 minutes as needed. alirocumab (PRALUENT PEN) 75 mg/mL pnij Inject 75 mg subcutaneously every 2 weeks. ticagrelor (BRILINTA) 90 mg tablet Take 1 tablet by mouth twice daily. oxybutynin ER (DITROPAN XL) 10 mg 24 hr tablet Take 1 tablet by mouth daily at bedtime. traZODone (DESYREL) 50 mg tablet Take 1 tablet by mouth daily at bedtime. (Patient taking differently: Take 50 mg by mouth daily at bedtime. taking 1/2 tablet at bedtime ) tamsulosin ER (FLOMAX) 0.4 mg cp24 Take 1 capsule by mouth once daily. ezetimibe (ZETIA) 10 mg tablet Take 1 tablet by mouth once daily. aspirin, enteric coated (ADULT LOW DOSE ASPIRIN) 81 mg EC tablet Take 1 tablet by mouth once daily. The Whole Probiotic ([employer]) Take 1 capsule by mouth once daily. 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 B-Complex Plus (Pure Encapsulations) Take 1 capsule by mouth daily with food. ONE [place] (Pure Encapsulation) Take 3 capsules by mouth daily with food. Magnesium Citrate 150mg 90 ct[address] (Pure Encapsulations) Take 3 capsules daily. [employer] Multivitamin (Pure Encapsulations) Take 1 capsule by mouth daily with food. Vitamin D3 Liquid ([employer]caps[employer]) Take 3-5 drops daily, with meals No current facility-administered medications on file prior to visit. Social History Social History Marital status: Spouse name: Steph Years of education: Number of children: 5 Occupational History Occupation Employer Comment [employer]* Social History Main Topics Smoking status: Former Smoker Packs/day: 1.00 Years: 10.00 Types: Cigarettes Quit date: 05/03/1977 Smokeless tobacco: Never Used Alcohol use: Yes 7.5 oz/week Glasses of Wine (5oz): 5 per week Drug use: No Review of Symptoms REVIEW OF SYSTEMS See HPI EXAM: BP 106/78 Pulse 60 Resp 12 Wt 88 kg (194 lb) SpO2 96% BMI 25.60 kg/m? General Appearance: Well appearing, alert, in no acute distress, well-hydrated, well nourished.. Skin: Skin color, texture, turgor normal, no suspicious rashes or lesions. Lungs: Lungs clear to auscultation. No wheezing, rhonchi, rales. Heart: RRR without murmur, gallop, or rubs. No ectopy. Abdomen: Normal abdominal exam, Abdomen soft, non-tender. Bowel sounds normal. No masses, organomegaly. Extremities: No deformities, edema, skin discoloration, clubbing or cyanosis. Good capillary refill. . Health Maintenance List PNEUMOVAX AGE 65 AND OVER WITH 5YR LOOKBACK(1) due on 03/31/2018 DTAP,TDAP,TD(2 - Td) due on 04/18/2018 ANNUAL PCP TEAM CHRONIC DISEASE VISIT due on 09/29/2018 BP CONTROLLED (<130/80) due on 01/10/2019 LDL CHOLESTEROL due on 02/02/2019 DIABETES SCREEN due on 02/10/2021 COLORECTAL CANCER SCREENING,SEE MODIFIER due on 04/13/2022 LIPID SCREEN due on 02/02/2023 PROSTATE CANCER SCREENING DISCUSSION Completed ADULT PREVNAR-13 Completed INFLUENZA Completed HEPATITIS C SCREENING Completed ASSESSMENT/PLAN: 1. Coronary artery disease involving tunica-biloxi coronary artery, angina presence unspecified, unspecified whether tunica-biloxi or transplanted heart - ICD9: 414.01, ICD10: I25.10 (primary diagnosis) S/p PCI x2. Asymptomatic. Continue medical management as recommended. F/u with cardiology regarding side effects from nitro patch. Keep schedule OV in April and call with concerns PRN. 2. Unstable angina (HCC) - ICD9: 411.1, ICD10: I20.0 See above. 3. Headache, unspecified headache type - ICD9: 784.0, ICD10: R51 See above. 4. Hospital discharge follow-up - ICD9: V67.59, ICD10: Z09 See above. Lisa Rosado MD Referring Provider: LISA ROSADO) [[id number]] Allergies As of Date: 02/16/2018 (No Known Allergies) Date Reviewed: 02/16/2018 Reviewed by: Isidro Telles Ma - Fully Assessed Reason for Visit: Hospital Follow Up [177] Cmt: TCM Primary Visit Diagnosis:Coronary artery disease involving tunica-biloxi coronary artery, angina presence unspecified, unspecified whether tunica-biloxi or transplanted heart [I25.10] Other Visit Diagnoses:Unstable angina (HCC) [I20.0] Headache, unspecified headache type [R51] Hospital discharge follow-up [Z09] Prescriptions as of 02/16/2018 Sig: NITROGLYCERIN 0.4 MG/HR TRANS* Apply 1 Patch as directed onc* NITROGLYCERIN 0.4 MG SUBLINGU* Dissolve 1 tablet under the t* ALIROCUMAB 75 MG/ML SUBCUTANE* Inject 75 mg subcutaneously e* TICAGRELOR 90 MG TABLET Take 1 tablet by mouth twice * OXYBUTYNIN CHLORIDE ER 10 MG * Take 1 tablet by mouth daily * TRAZODONE 50 MG TABLET Take 1 tablet by mouth daily * Patient taking differently: Take 50 mg by mouth daily at * TAMSULOSIN 0.4 MG CAPSULE Take 1 capsule by mouth once * EZETIMIBE 10 MG TABLET Take 1 tablet by mouth once d* ASPIRIN 81 MG TABLET,DELAYED * Take 1 tablet by mouth once d* OTC NUTRITIONAL SUPPLEMENT Take 1 capsule by mouth once * OTC NUTRITIONAL SUPPLEMENT Take 2 capsules by mouth valentin* OTC NUTRITIONAL SUPPLEMENT Take 1 capsule by mouth daily* OTC NUTRITIONAL SUPPLEMENT Take 3 capsules by mouth valentin* OTC NUTRITIONAL SUPPLEMENT Take 3 capsules daily. OTC NUTRITIONAL SUPPLEMENT Take 1 capsule by mouth daily* OTC NUTRITIONAL SUPPLEMENT Take 3-5 drops daily, with me* Problem List As Of Date 02/16/2018 Noted Resolved PERS HX TOBACCO USE [Z87.891] INVALID FOR* Abdominal pain, epigastric [R10.13] INVALID FOR*02/18/2010 Attention deficit disorder with hyperactivity [*INVALID FOR* NOCTURIA [R35.1] INVALID FOR* Pain in soft tissues of limb [M79.609] INVALID FOR*02/18/2010 Empyema without mention of fistula [J86.9] INVALID FOR*03/31/2017 Pain in joint, shoulder region [M25.519] INVALID FOR*04/06/2017 Esophagitis, unspecified [K20.9] INVALID FOR*04/06/2017 Acute gastritis without mention of hemorrhage [*INVALID FOR*03/31/2017 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 Tear of medial cartilage or meniscus of knee, c*INVALID FOR*04/06/2017 Lumbar radiculopathy [M54.16] INVALID FOR* ED (erectile dysfunction) [N52.9] INVALID FOR* Low testosterone [E34.9] INVALID FOR*03/31/2017 Benign neoplasm of colon [D12.6] INVALID FOR*03/31/2017 SUMMARY [V999.95] INVALID FOR* More... Unstable angina (HCC) [I20.0] INVALID FOR* Priority: A More... Dyslipidemia (high LDL; low HDL) [E78.5] INVALID FOR* Priority: C More... Sinus infection [J32.9] INVALID FOR*12/12/2011 More... Need for prophylactic measure [Z29.9] INVALID FOR*03/31/2017 More... Tubular adenoma of colon [D12.6] INVALID FOR* Presence of drug coated stent in posterior desc*INVALID FOR* ASCVD (arteriosclerotic cardiovascular disease)*INVALID FOR*03/31/2017 ASHD (arteriosclerotic heart disease) [I25.10] INVALID FOR* Right carpal tunnel syndrome [G56.01] INVALID FOR*04/06/2017 CAD (coronary artery disease) [I25.10] INVALID FOR* Priority: A More... Primary hypertension [I10] INVALID FOR* Priority: C More... Diarrhea [R19.7] INVALID FOR*03/31/2017 More... Non-ST elevation myocardial infarction (NSTEMI)*INVALID FOR* More... Presence of drug coated stent in left circumfle*INVALID FOR* Lumbar foraminal stenosis [M99.83] INVALID FOR*03/31/2017 Lumbar spondylosis [M47.816] INVALID FOR* Priority: A Neural foraminal stenosis of lumbar spine [M99.*INVALID FOR* Priority: A More... 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 Cervical radiculopathy [M54.12] INVALID FOR* S/P cervical disc replacement [Z98.890] INVALID FOR* Priority: C Acute postoperative pain [G89.18] INVALID FOR* Priority: D More... Benign prostatic hyperplasia with urinary obstr*INVALID FOR* ACS (acute coronary syndrome) (HCC) [I24.9] INVALID FOR* Priority: B More... Coronary artery disease involving tunica-biloxi chaves*INVALID FOR* More... Post PTCA [Z98.61] INVALID FOR* More... Chest pain [R07.9] INVALID FOR* Priority: C More... Disposition: Return if symptoms worsen or fail to improve. Follow-up and Disposition History Recorded Encounter Status:Closed by LISA ROSADO MD on 02/16/18 PROGRESS Observed: 02/16/2018 Status: COMPLETED Source: [place] 10:30 AM [facility] REPOSITORY O ID: [id number] Author: Lisa Patel) Ashlee Service: (none) Author Type: Physician Type: Progress Notes Filed: 02/16/2018 10:30 AM Note Text: Reviewed. Will discuss at OV today. CNCO Observed: 02/15/2018 Status: COMPLETED Source: [place] 12:00 AM [facility] REPOSITORY Letter Text February 15, 2018 Liliya Encinas [address] [facility] [address] Dear Mr. Encinas, The nurses and staff of J7-3 nursing unit at [facility] hope this letter finds you feeling well and progressing in your recovery. It was an honor for us to provide your nursing care. We know that placing our Patients First and maintaining a culture of continuous improvement, each and every day, are essential to the success of our organization. We want to hear from you. If you have any comments, questions or concerns about your hospital stay, please feel free to contact me, Antwon Ybarra RN at [phone] or e-mail [email or web address]. Additionally, you will receive a survey in the mail asking you to rate the care you received while in the hospital. Please take the time to complete and send back the survey. I personally review all the results and would appreciate your feedback. Please consider completing this survey for each individual visit. Thank you in advance for your participation and thank you for choosing the [facility] for your healthcare needs. Sincerely, Antwon Ybarra RN Nurse Remote Ruby On Rails Developer 7-3 Cardiology Step-down Unit 12 LEAD ELECTROCARDIOGRAM Observed: 02/10/2018 Status: F Source: [place] 1:36 PM [facility] REPOSITORY [facility] Cardiovascular Services [address] [place] [address] 12 Lead EKG 02/07/18 1926 MR#: [id number] Acct: [id number] Name: LILIYA ENCINAS Rep #: [id number] : 1950 67 From: Timothy Da Silva MD Attending Dr: Status: DEP ER Ordering Dr: Katlyn Farooq DO Date: 02/07/18 Location: ED Sex: M C Admitted: Test Reason : CP Blood Pressure : / mmHG Vent. Rate : 065 BPM Atrial Rate : 065 BPM P-R Int : 148 ms QRS Dur : 096 ms QT Int : 428 ms P-R-T Axes : 045 046 046 degrees QTc Int : 445 ms Normal sinus rhythm Normal ECG Confirmed by SHELLEY DUENAS, TIMOTHY ([id number]), editorial manager MURRAY CHAPARRO ([id number]) on 02/10/2018 1:35:52 PM Referred By: SHANEL Confirmed By:TIMOTHY DA SILVA MD 02/10/18 1335 Date Timothy Da Silva MD CC: Aquiles Rosado MD; Katlyn Farooq DO Signed PROGRESS Observed: 02/10/2018 Status: COMPLETED Source: [place] 10:27 AM [facility] REPOS[facility] HNO ID: [id number] Author: Tushar Cassidy) Mac Service: Cardiovascular Medicine Author Type: Physician Floor Technician Type: Progress Notes Filed: 02/10/2018 11:32 AM Note Text: [facility] CARD[facility]ICINE PROGRESS NOTE (Template ID [id number]) Liliya Encinas [id number] PRIMARY SERVICE: Hvi Card Intervention HOSPITAL DAY: # 0 INTERVAL HISTORY Mr. Guerrero is sitting comfortably in a chair. He denies chest pain and SOB. He feels much improved and is ready for discharge. PHYSICAL EXAM BP 125/67 Pulse 72 Temp (!) 35.9 ?C (96.6 ?F) (Oral) Resp 16 Ht 185.4 cm (6' 1) Wt 90.2 kg (198 lb 12.8 oz) SpO2 98% BMI 26.23 kg/m? Intake/Output Summary (Last 24 hours) at 02/10/18 1132 Last data filed at 02/10/18 0900 Gross per 24 hour Intake 1950 ml Output 975 ml Net 975 ml General Appearance: No acute distress and sitting comfortably in his room. HEENT: PERRLA and JVD - no Lungs: Clear Heart: Regular rate AND rhythm and S1, S2 normal Abdomen: Soft, Round, Non-tender and Non-distended Extremities: Bandage over right radial artery access site. No hematoma, no bruits. Skin: Warm and Dry Musculoskeletal: No deformities Neurologic/Psychiatric: Oriented to time, place AND person and Alert MEDICATIONS Current hospital medications: nitroglycerin 0.4 mg/hr 1 Patch (NITRODERM, MINITRAN) 1 Patch TRANSDERMAL DAILY nitroglycerin -- REMOVE patch OTHER AT BEDTIME nitroglycerin - verify patch OTHER q 8 H acetaminophen 650 mg tab(s) (TYLENOL) 650 mg ORAL q 4 H PRN ticagrelor 90 mg tab(s) (BRILINTA) 90 mg ORAL BID docusate sodium 100 mg cap(s) (COLACE) 100 mg ORAL BID PRN heparin 5,000 Units injection 5,000 Units SUBCUTANEOUS q 12 H tamsulosin ER 0.4 mg cap(s) (FLOMAX) 0.4 mg ORAL DAILY ezetimibe 10 mg tab(s) (ZETIA) 10 mg ORAL DAILY aspirin, enteric coated 81 mg tab(s) 81 mg ORAL DAILY traZODone 25 mg tab(s) (DESYREL) 25 mg ORAL AT BEDTIME oxybutynin ER 10 mg tab(s) (DITROPAN XL) 10 mg ORAL AT BEDTIME DATA Recent Labs 02/10/1841602/09/1843002/08/18 0310 WBC 4.04 3.88 5.22 HB 13.6 13.8 13.9 HCT 39.3 41.2 40.0 PLT 190 201 203 Recent Labs 02/10/1841602/09/1843002/08/18 0310 NA 142 140 139 K 3.8 3.8 3.8 CO2 22 21* 22 BUN 13 18 15 CREAT 0.89 0.83 0.84 GLUC 92 101* 116* MG 1.9 2.1 -- IMAGING Reviewed ASSESSMENT AND PLAN 68 year old male with a history of CAD s/p PCI to PDA?in 2011 and subsequent PCI to OM3 for NSTEMI in 2013, recent PCI-mid LAD on 02/02, HTN, HLD, GERD who presents with chest pain. His pain does not sound very atypical in character but comes on at rest. I do not see any clear areas that would cause ischemia based on recent LHC -- only intermediate lesion is in the LCx. Will trend biomarkers here and then determine the course of action. I do not think he warrants any further workup as long as biomarkers are negative; in that case, would consider addition of long acting nitrates to his regimen to see if this helps further recurrence of the pain. If biomarkers are positive, would have to perform repeat LHC. Will keep NPO until we have a clear plan. Of note, patient did not get an echo during last admission; will reorder today. Problem Cad (Coronary Artery Disease) Hx: POA S/p PCI on 12/2011 with FAY to rPDA S/p PCI on 10/27/2013 to the OM3 with a 2.25 x 12mm Resolute Integrity ZES S/p PCI on 02/02/18 to the MID-LAD with On ASA 81 mg PO daily at home On brilinta 90 mg PO BID at home A:Echo completed yesterday. EF = 65%. Cath 02/09/18 Severe focal stenosis of the proximal LAD (iFR 0.85 after intracoronary nitroglycerin). PCI of mid-LAD with a 3.5x16 Synergy and posted with the stent balloon at 12 james P: Add nitrodur x 1 month (spasm) Continue ASA and brilinta Continue zetia, will purse adding a PCSK9 inhibitor Lifestyle modifications. Acs (Acute Coronary Syndrome) (Hcc) H: Known CAD s/p PCI to the PDA in 2011 subsequest PCI to OM3 in 2013 A: now presenting with chest pain and + outside hospital elevation in Trop I Here CK negative and Trop T negative Underwent cardiac cath with Dr. Morales Impression: - Significant mid LAD lesion by iFR (0.83). - Moderate proximal LAD lesion (0.96 by iFR) after mid LAD intervention. - Patent LCx and distal RCA stents PCI FAY to LAD 02-02-2018 02/07/18 Readmit w [facility] P: PCI to prox LAD Add nitrodur x 1 month (spasm) DAPT statin intolerant on Zetia, consider Pcsk9i Chest Pain Hx: developed chest pain similar to pain he was experiencing prior to the stent placed to the mid LAD on 02/02/18 No longer having chest pain s/p PCI to mid-LAD yesterday 02/09/18 A/P: See CAD plan above. Primary Hypertension H: POA No home medications A: BP on admission 109/57 Has been stable since Last BP 157/77 at 0938 on 02/10/18 P: continue to monitor BP. Case to be discussed with staff Carmella Godinez Student (PA-S) I saw and examined pt and agree w above assessment and plan. Care Coordination Discharge Management: I personally spent greater than 30 minutes involved in the discharge management of this patient. All medications and potential SE were discussed with the patient Pager [phone] (please see below for after hours communication) 02/10/2018 10:27 AM For communication after 5 pm on weekdays and after 12 pm on weekends, please page the following: - Clinical Cardiology patients on all floors: page [phone] - Other Cardiology patients on J5 and J6: page [phone] - Other Cardiology patients on J7 and J8: page [phone] CBC Collected: 02/10/2018 Status: F Source: [place] 4:17 AM [facility] REPOSITORY TYPE CODE TESTS RESULT OUT OF REFERENCE UNITS RANGE LAB WBC 3.70-11.00 k/uL WBC 4.04 LAB RBC 4.20-6.00 m/uL RBC 4.43 LAB HGB 13.0-17.0 g/dL Hemoglobin 13.6 LAB HCT 39.0-51.0 % Hematocrit 39.3 LAB MCV 80.0-100.0 fL MCV 88.7 LAB MCH 26.0-34.0 pG MCH 30.7 LAB MCHC 30.5-36.0 g/dL MCHC 34.6 LAB RDWCV 11.5-15.0 % RDW-CV 12.7 LAB PLTCT 150-400 k/uL Platelet Count 190 LAB MPV 9.0-12.7 fL MPV 9.5 LAB ABSNUC <0.01 k/uL Absolute nRBC <0.01 Performed By: #### CBC, BMP, MG1 #### [facility] [address] [place], [place] [address] BASIC METABOLIC PANL Collected: 02/10/2018 Status: F Source: [place] 4:17 AM [facility] REPOSITORY TYPE CODE TESTS RESULT OUT OF REFERENCE UNITS RANGE LAB GLU 74-99 mg/dL Glucose 92 Result Comment: The [place] Diabetes Association (ADA) provides guidance for cutoff values for fasting glucose and random glucose. The ADA defines fasting as no caloric intake for at least 8 hours. Fas ting plasma glucose results between 100 to 125 mg/dL indicate increased risk for diabetes (prediabetes). Fasting plasma glucose results greater than or equal to 126 mg/dL meet the criteria for diagnosis of diabetes. In the absence of unequivocal hyperglycemia, results should be confirmed by repeat testing. In a patient with classic symptoms of hyperglycemia or hyperglycemic crisis, random plasma glucose results greater than or equal to 200 mg/dL meet the criteria for diagnosis of diabetes. Reference: Standards of Medical Care in Diabetes 2016, [place] Diabetes Association. Diabetes Care. 2016.39(Suppl 1). LAB BUN 9-24 mg/dL BUN 13 LAB CRET 0.73-1.22 mg/dL Creatinine 0.89 LAB NA 136-144 mmol/L Sodium 142 LAB K 3.7-5.1 mmol/L Potassium 3.8 LAB CL 97-105 mmol/L Chloride High 108 LAB CO2 22-30 mmol/L CO2 22 LAB AGAP 9-18 mmol/L Anion Gap 12 LAB CA 8.5-10.2 mg/dL Calcium, Total 9.1 LAB GFRAA eGFR- Amer. >60 LAB GFRNAA . eGFR-All Other Races >60 Result Comment: eGFR (Estimated GFR) Units of measure: mL/min/1.73 meters squared eGFR is derived from the reexpressed MDRD Study equation using the following parameters: serum creatinine, age, gender and race. The creatinine assay has been calibrated to be traceable to IDMS. An eGFR <60 mL/min/1.73m2 for >3 months is consistent with chronic kidney disease. Refer to KDOQI guidelines for clinical interpretation. In patients with unstable renal function, e.g. those with acute kidney injury, the eGFR may not accurately reflect actual GFR. Performed By: #### CBC, BMP, MG1 #### [facility] [address] [place] [address] MAGNESIUM Collected: 02/10/2018 Status: F Source: [place] 4:17 AM [facility] REPOSITORY TYPE CODE TESTS RESULT OUT OF REFERENCE UNITS RANGE LAB MG 1.7-2.3 mg/dL Magnesium 1.9 Performed By: #### CBC, BMP, MG1 #### [facility] [place] [id number] CNCO Observed: 02/10/2018 Status: COMPLETED Source: [place] 12:00 AM [facility] REPOSITORY Letter Text Amaury Salomon. Johnny Machado Department of Cardiovascular Medicine [address] [place] [address] / [address] [place] [address] Office: [phone] February 10, 2018 REGARDING: Mr. Liliya Encinas [address] [place], [place] [address] : 1950 To Whom It May Concern: Mr. Liliya Encinas was hospitalized at the [facility] from February 08 - February 10, 2018. Mr. Encinas may return back to work without restrictions on Wednesday, February 21, 2018. Please contact my office should you have any questions at [phone]. Sincerely yours, Rubens Duenas MD CASE MANAGEM Observed: 2018 Status: COMPLETED Source: [place] 2:13 PM [facility] REPOSITORY HNO ID: [id number] Author: Lynsey ElmoreRn) PHOENIX Holt Service: Pulmonary Disease Author Type: Registered Nurse Type: Care Mgt Progress Note Filed: 2018 2:14 PM Note Text: CARE MANAGEMENT PROGRESS NOTE SERVICE DATE: 2018 SERVICE TIME: 2:13 PM LOS: 0 days Needs Prior to Discharge: Discharge Prescriptions Patient admitted for observation. s/p PCI today. Anticipated DC tomorrow. No skilled needs. SIGNATURE: Lynsey Holt RN PATIENT NAME: Liliya Encinas DATE: 2018 TIME: 2:13 PM PAGER/CONTACT #: [phone] CASE MANAGEM Observed: 2018 Status: COMPLETED Source: [place] 1:35 PM [facility] REPOSITORY HNO ID: [id number] Author: Leydi Briscoe (Asst) Service: Care Management Author Type: Resource Center Floor Technician Type: Care Mgt Progress Note Filed: 2018 1:36 PM Note Text: CARE MANAGEMENT PROGRESS NOTE SERVICE DATE: 2018 SERVICE TIME: 11:53 am LOS: 0 days IM letter given to patient on 02/09/18. SIGNATURE: Asst Adrián PATIENT NAME: Liliya Encinas DATE: 2018 TIME: 1:35 PM PAGER/CONTACT #: [phone] PROGRESS Observed: 2018 Status: COMPLETED Source: [place] 10:18 AM [facility] REPOSITORY HNO ID: [id number] Author: Tushar Watts (Pa) Service: Cardiovascular Medicine Author Type: Physician Floor Technician Type: Progress Notes Filed: 2018 4:40 PM Note Text: [facility] CARDIOVASCULAR MEDICINE PROGRESS NOTE (Template ID [id number]) Liliya Encinas [id number] PRIMARY SERVICE: Hvi Card Intervention HOSPITAL DAY: # 0 INTERVAL HISTORY Mr. Encinas still c/o constant left sided chest pain that he describes as a pinch. Denies shortness of breath, palpitations, abdominal pain, nausea or vomiting. Scheduled to undergo heart cath later today. PHYSICAL EXAM BP 135/74 Pulse (!) 51 Temp (!) 35.4 ?C (95.7 ?F) (Oral) Resp 18 Ht 185.4 cm (6' 1) Wt 88.4 kg (194 lb 12.8 oz) SpO2 98% BMI 25.70 kg/m? Intake/Output Summary (Last 24 hours) at 02/09/18 1639 Last data filed at 02/08/18 2300 Gross per 24 hour Intake 120 ml Output 1 ml Net 119 ml General Appearance: No acute distress and sitting comfortably in chair HEENT: PERRLA and JVD - no Lungs: Clear Heart: Regular rate AND rhythm and S1, S2 normal Abdomen: Soft, round, non-distended Skin: Warm and Dry Musculoskeletal: No deformities Neurologic/Psychiatric: Oriented to time, place AND person MEDICATIONS Current hospital medications: acetaminophen 650 mg tab(s) (TYLENOL) 650 mg ORAL q 4 H PRN ticagrelor 90 mg tab(s) (BRILINTA) 90 mg ORAL BID docusate sodium 100 mg cap(s) (COLACE) 100 mg ORAL BID PRN heparin 5,000 Units injection 5,000 Units SUBCUTANEOUS q 12 H tamsulosin ER 0.4 mg cap(s) (FLOMAX) 0.4 mg ORAL DAILY ezetimibe 10 mg tab(s) (ZETIA) 10 mg ORAL DAILY aspirin, enteric coated 81 mg tab(s) 81 mg ORAL DAILY traZODone 25 mg tab(s) (DESYREL) 25 mg ORAL AT BEDTIME oxybutynin ER 10 mg tab(s) (DITROPAN XL) 10 mg ORAL AT BEDTIME DATA Recent Labs 02/09/18 0431 02/08/18 0310 WBC 3.88 5.22 HB 13.8 13.9 HCT 41.2 40.0 PLT 201 203 Recent Labs 02/09/18 0431 02/08/18 0310 NA 140 139 K 3.8 3.8 CO2 21* 22 BUN 18 15 CREAT 0.83 0.84 GLUC 101* 116* MG 2.1 -- IMAGING Reviewed ASSESSMENT AND PLAN 68 year old male with a history of CAD s/p PCI to PDA?in 2011 and subsequent PCI to OM3 for NSTEMI in 2013, recent PCI-mid LAD on 02/02, HTN, HLD, GERD who presents with chest pain. His pain does not sound very atypical in character but comes on at rest. I do not see any clear areas that would cause ischemia based on recent LHC -- only intermediate lesion is in the LCx. Will trend biomarkers here and then determine the course of action. I do not think he warrants any further workup as long as biomarkers are negative; in that case, would consider addition of long acting nitrates to his regimen to see if this helps further recurrence of the pain. If biomarkers are positive, would have to perform repeat LHC. Will keep NPO until we have a clear plan. Of note, patient did not get an echo during last admission; will reorder today. Problem Chest Pain Hx: developed chest pain similar to pain he was experiencing prior to the stent placed to the mid LAD on 02/02/18 A/P: See CAD plan above Cad (Coronary Artery Disease) Hx: S/p PCI on 12/2011 with FAY to rPDA S/p PCI on 10/27/2013 to the OM3 with a 2.25 x 12mm Resolute Integrity ZES S/p PCI on 02/02/18 to the MID-LAD with On ASA 81 mg PO daily at home On brilinta 90 mg PO BID at home A/P: heart cath today. Patient NPO Echo completed yesterday. EF = 65% Continue ASA and brilinta Continue heparin 5,000 unit subq q 12 hrs 02/09/18 Prox LAD direct stented with a 3.5x16 Synergy Primary Hypertension H: POA No home medications A: BP on admission 109/57 Has been stable since Last BP 115/61 at 0731 on 02/09/18 P: continue to monitor BP Dyslipidemia (High Ldl; Low Hdl) Hx: POA On Zetia at home. Patient is statin intolerant A: last non-fasting lipid panel. Total cholesterol - 154 Triglycerides - 167 HDL - 56 LDL - 65 P: Continue Zetia Consider PCSK9 inhibitors. Case to be discussed with staff Carmella Godinez Student (MANJITS) I saw and examined pt and agree w above assessment and plan. Pager [phone] (please see below for after hours communication) 2018 10:18 AM For communication after 5 pm on weekdays and after 12 pm on weekends, please page the following: - Clinical Cardiology patients on all floors: page [phone] - Other Cardiology patients on J5 and J6: page [phone] - Other Cardiology patients on J7 and J8: page [phone] CBC Collected: 2018 Status: F Source: [place] 4:31 AM [facility] REPOSITORY TYPE CODE TESTS RESULT OUT OF REFERENCE UNITS RANGE LAB WBC 3.70-11.00 k/uL WBC 3.88 LAB RBC 4.20-6.00 m/uL RBC 4.46 LAB HGB 13.0-17.0 g/dL Hemoglobin 13.8 LAB HCT 39.0-51.0 % Hematocrit 41.2 LAB MCV 80.0-100.0 fL MCV 92.4 LAB MCH 26.0-34.0 pG MCH 30.9 LAB MCHC 30.5-36.0 g/dL MCHC 33.5 LAB RDWCV 11.5-15.0 % RDW-CV 12.7 LAB PLTCT 150-400 k/uL Platelet Count 201 LAB MPV 9.0-12.7 fL MPV 9.4 LAB ABSNUC <0.01 k/uL Absolute nRBC <0.01 Performed By: #### CBC, BMP, MG1 #### [facility] [address] [place] [id number] BASIC METABOLIC PANL Collected: 2018 Status: F Source: [place] 4:31 AM [facility] REPOSITORY TYPE CODE TESTS RESULT OUT OF REFERENCE UNITS RANGE LAB GLU 74-99 mg/dL High Glucose 101 Result Comment: The [place] Diabetes Association (ADA) provides guidance for cutoff values for fasting glucose and random glucose. The ADA defines fasting as no caloric intake for at least 8 hours. Fas ting plasma glucose results between 100 to 125 mg/dL indicate increased risk for diabetes (prediabetes). Fasting plasma glucose results greater than or equal to 126 mg/dL meet the criteria for diagnosis of diabetes. In the absence of unequivocal hyperglycemia, results should be confirmed by repeat testing. In a patient with classic symptoms of hyperglycemia or hyperglycemic crisis, random plasma glucose results greater than or equal to 200 mg/dL meet the criteria for diagnosis of diabetes. Reference: Standards of Medical Care in Diabetes 2016, [place] Diabetes Association. Diabetes Care. 2016.39(Suppl 1). LAB BUN 9-24 mg/dL BUN 18 LAB CRET 0.73-1.22 mg/dL Creatinine 0.83 LAB NA 136-144 mmol/L Sodium 140 LAB K 3.7-5.1 mmol/L Potassium 3.8 LAB CL 97-105 mmol/L Chloride High 106 LAB CO2 22-30 mmol/L Low CO2 21 LAB AGAP 9-18 mmol/L Anion Gap 13 LAB CA 8.5-10.2 mg/dL Calcium, Total 8.7 LAB GFRAA eGFR- Amer. >60 LAB GFRNAA . eGFR-All Other Races >60 Result Comment: eGFR (Estimated GFR) Units of measure: mL/min/1.73 meters squared eGFR is derived from the reexpressed MDRD Study equation using the following parameters: serum creatinine, age, gender and race. The creatinine assay has been calibrated to be traceable to IDMS. An eGFR <60 mL/min/1.73m2 for >3 months is consistent with chronic kidney disease. Refer to KDOQI guidelines for clinical interpretation. In patients with unstable renal function, e.g. those with acute kidney injury, the eGFR may not accurately reflect actual GFR. Performed By: #### CBC, BMP, MG1 #### [facility] [address] [place] [id number] MAGNESIUM Collected: 2018 Status: F Source: [place] 4:31 AM [facility] REPOSITORY TYPE CODE TESTS RESULT OUT OF REFERENCE UNITS RANGE LAB MG 1.7-2.3 mg/dL Magnesium 2.1 Performed By: #### CBC, BMP, MG1 #### [facility] [address] [place], [place] [address] CK, TOTAL AND CKMB Collected: 02/08/2018 Status: F Source: [place] 4:33 PM [facility] REPOSITORY TYPE CODE TESTS RESULT OUT OF REFERENCE UNITS RANGE LAB CK 51-298 U/L CK 103 LAB MB <7.7 ng/mL MB 5.4 LAB CKMBRI 0.0-4.0 % High CK MB % 5.2 Result Comment: Called to and read back by: Aviva Reddy J61 02/08/182030 N Srinivasjuan david Performed By: #### CKCKMB, TIEN #### [facility] [address] [place], [place] [address] TROPONIN T Collected: 02/08/2018 Status: F Source: [place] 4:33 PM [facility] REPOSITORY TYPE CODE TESTS RESULT OUT OF REFERENCE UNITS RANGE LAB TROPT 0.000-0.029 ng/mL Troponin T <0.010 Performed By: #### CKCKMB, TIEN #### [facility] [address] [place], [place] [id number] PLAN OF CARE Observed: 02/08/2018 Status: COMPLETED Source: [place] 4:08 PM [facility] REPOSITORY HNO ID: [id number] Author: Esha Fortune MD (Fel) Service: Cardiovascular Medicine Author Type: Fellow Type: Plan of Care Filed: 02/08/2018 4:21 PM Note Text: Cardiac Catheterization Laboratory Pre-Catheterization Procedure Note Liliya Encinas : 1950 ALLERGIES No Known Allergies Last 2 Encounter Wt Readings: Date: Wt: 02/07/2018 91.2 kg (201 lb 1.6 oz) 02/01/2018 88.6 kg (195 lb 5.2 oz) 68 year old male with HTN, dyslipidemia intolerant to statins, CAD s/p PCI to PDA (2011), OM3 (2013) and recent stent to mid LAD (02/02) who presented with chest pain. TIEN negative x 2, CKMB 5.1%. Cath requested by Dr. Duenas. PLANNED PROCEDURE: Left heart cath +/- PCI INDICATION FOR PROCEDURE: Symptoms (angina, chest pain, dyspnea, etc.) ISSUES RELEVANT TO PROCEDURE: none Cardiac Risk Factors/Pertinent History: ? Smoking: Used to smoke 1 ppd x 10 years, but quit in 1977 ? Hyperlipidemia: yes ? Hypertension: yes ? Family History of Coronary Disease: yes ? Diabetes: no On insulin No ? History of COPD or Asthma: no ? History of PAD: no ? History of prior CABG: no ? History of prior PCI: yes ? History of CHF: no. Can lay flat No Antiplatelet/Anticoagluation Medications: ASA 81 mg, ticagrelor 80 mg BID Cardiac Medications: ezetimibe 10 mg daily Other notable medications: none HGB 13.9 02/08/2018 Hematocrit 40.0 02/08/2018 Platelet Count 203 02/08/2018 Creatinine 0.84 02/08/2018 PT INR 1.0 02/02/2018 Estimated Creatinine Clearance: 97.8 mL/min (based on SCr of 0.84 mg/dL). Prior Cardiac Imaging/Procedures: ECG: sinus bradycardia TTE (08/2016): - LVEF 60%, decreased cavity with stress, normal wall motion; RV normal - Aortic valve normal, Mitral valve normal - Aortic size 3.4 (mid) Prior Cath (02/02/2018): LM: 30% at bifurcation LAD: proximal LAD narrowed with 60% focal disease (iFR 0.96); mid LAD with 70% focal lesion (iFR 0.83) s/p 3.0 x 24 mm Synergy LCx: proximal circumflex narrowed with 50% focal disease, patent stent RCA: mid RCA with 30% focal disease, patent PDA stent Access: RRA 5/6Fr sheath Catheters: 5Fr JR4, JL3.5; 6F XB 3.5 guide wire PAST MEDICAL HISTORY Diagnosis Date - Acute gastritis without mention of hemorrhage - ADHD (attention deficit hyperactivity disorder) on Lexapro - ASHD (arteriosclerotic heart disease) 04/05/2012 stent x2, Dr. 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 Riley - Testicular lesion right, s/p removal - Vitamin D insufficiency Current outpatient medications: ticagrelor (BRILINTA) 90 mg tablet Take 1 tablet by mouth twice daily. oxybutynin ER (DITROPAN XL) 10 mg 24 hr tablet Take 1 tablet by mouth daily at bedtime. traZODone (DESYREL) 50 mg tablet Take 1 tablet by mouth daily at bedtime. tamsulosin ER (FLOMAX) 0.4 mg cp24 Take 1 capsule by mouth once daily. ezetimibe (ZETIA) 10 mg tablet Take 1 tablet by mouth once daily. aspirin, enteric coated (ADULT LOW DOSE ASPIRIN) 81 mg EC tablet Take 1 tablet by mouth once daily. The Whole Probiotic ([employer]) Take 1 capsule by mouth once daily. Treatment 3-6 months Homocysteine [place] (OrdrIt) Take 2 capsules by mouth daily with food. B-Complex Plus (Pure Encapsulations) Take 1 capsule by mouth daily with food. ONE [place] (Pure Encapsulation) Take 3 capsules by mouth daily with food. Magnesium Citrate 150mg 90 ct[address] (Pure Encapsulations) Take 3 capsules daily. Pure[employer] Multivitamin (Pure Encapsulations) Take 1 capsule by mouth daily with food. Vitamin D3 Liquid (Pure Encapsulations) Take 3-5 drops daily, with meals Current hospital medications: acetaminophen 650 mg tab(s) (TYLENOL) 650 mg ORAL q 4 H PRN ticagrelor 90 mg tab(s) (BRILINTA) 90 mg ORAL BID docusate sodium 100 mg cap(s) (COLACE) 100 mg ORAL BID PRN heparin 5,000 Units injection 5,000 Units SUBCUTANEOUS q 12 H tamsulosin ER 0.4 mg cap(s) (FLOMAX) 0.4 mg ORAL DAILY ezetimibe 10 mg tab(s) (ZETIA) 10 mg ORAL DAILY aspirin, enteric coated 81 mg tab(s) 81 mg ORAL DAILY traZODone 25 mg tab(s) (DESYREL) 25 mg ORAL AT BEDTIME oxybutynin ER 10 mg tab(s) (DITROPAN XL) 10 mg ORAL AT BEDTIME Cholesterol, Total 154 02/02/2018 Triglyceride 167 02/02/2018 HDL Cholesterol 56 02/02/2018 LDL Chol, Gali 65 02/02/2018] CK 111 02/08/2018 MB 5.7 02/08/2018 Troponin T <0.010 02/08/2018] Esha Fortune MD Cardiovascular Medicine Fellow Pager: CNDS Observed: 02/08/2018 Status: COMPLETED Source: [place] 1:32 PM [facility] REPOSITORY HNO ID: [id number] Author: Tushar Watts (Pa) Service: Cardiovascular Medicine Author Type: Physician Floor Technician Type: Discharge Summaries Filed: 02/10/2018 11:37 AM Note Text: Department of Cardivascular Medicine Discharge Summary PATIENT NAME: Liliya Encinas ADMISSION DATE: 02/08/2018 DISCHARGE DATE: 02/10/2018 Attending Physician: Rubens Duenas, * Code Status: Not on file Primary Service: Hvi Card Intervention Admission Diagnosis: Chest pain Discharge Diagnosis: Chest pain Secondary Diagnoses: Patient Active Hospital Problem List: CAD (coronary artery disease) (07/11/2012) ACS (acute coronary syndrome) ([facility]) (02/02/2018) Dyslipidemia (high LDL; low HDL) (12/11/2011) Primary hypertension (07/12/2012) Chest pain (02/08/2018) Reason for Hospitalization: Mr. Encinas is a 68 y.o. Male with a PMHx of CAD s/p PCI to PDA (2011), PCI to OM3 for NSTEMI (2013), recent PCI to the mid-LAD (02/02/18), HTN, HLD and GERD who is admitted from the [facility] ED for evaluation of chest pain. Hospital Course: Medical management of chest pain was continued. Patient was scheduled for cardiac catheterization + revascularation. Patient underwent cardiac catheterization with successful PCI of mid-LAD. Post PCI patient was transferred to the cardiac step-down in stable condition. Peak CK/Troponin 148/<0.010. Echo with EF 64% Added nitrodur x 1 month (spasm) The patient remained HD stable. The patient was discharged in stable condition Consults: None Major Procedure or Operation: Successful PCI of the mid-LAD with a 3.5x16 Synergy and posted with the stent balloon at 12 james. Other Procedures, Testing AND Radiology: Cath: 02/09/18 LMT: - Mild 30% focal disease at bifurcation. LAD: - Severe 70% focal stenosis after first diagonal. iFR 0.88, decreased to 0.85 after administration of intracoronary nitroglycerin. - Patent mid LAD stent. - First diagonal with mild diffuse disease. LCX: - Proximal circumflex narrowed with 50% focal disease. - Patent distal stent. ? RCA: - Mid RCA with mild 30% focal disease. - Patent PDA stent. ECHO: 02/08/18 - The left ventricle is normal in size. Left ventricular systolic function is normal. EF = 64 ? 5% (2D biplane) Indeterminate left ventricular diastolic dysfunction. - The right ventricle is normal in size. Right ventricular systolic function is normal. - The left atrial cavity is mildly dilated. - There are no significant valvular abnormalities. - Exam was compared with the prior echocardiographic exam performed on 09/21/16 ?Stress. No significant change. EK02/08/18 Diagnosis:SINUS BRADYCARDIA OTHERWISE NORMAL ECG Ventricular Rate : 53 ?BPM Atrial Rate : 53 ?BPM P-R Interval : 152 ?ms QRS Duration : 102 ?ms Q-T Interval : 448 ?ms QTC Calculation(Bezet) : 420 ?ms P Fullerton : 55 ?degrees R Fullerton : 52 ?degrees T Fullerton : 50 ?degrees Patient Condition at Discharge: Improved Disposition: Home/Self Care Information Provided to the Patient: Patient given copy of After Visit Summary which included activity instructions, diet instructions, wound care instructions, medication instructions and follow up appointment ALLERGIES No Known Allergies Discharge Medications: Current Discharge Medication List START taking these medications nitroglycerin (NITRODERM, MINITRAN) 1 Patch Apply 1 Patch as directed once daily. Qty: 30 Patch Refills: 0 nitroglycerin sublingual (NITROQUICK) 0.4 mg Dissolve 0.4 mg under the tongue every 5 minutes as needed. Qty: 1 Bottle of 25 Refills: 6 CONTINUE these medications which have NOT CHANGED ticagrelor (BRILINTA) 90 mg Take 90 mg by mouth twice daily. Qty: 60 tablet Refills: 11 oxybutynin ER (DITROPAN XL) 10 mg Take 10 mg by mouth daily at bedtime. Qty: 30 tablet Refills: 2 traZODone (DESYREL) 50 mg Take 50 mg by mouth daily at bedtime. Qty: 30 tablet Refills: 0 tamsulosin ER (FLOMAX) 0.4 mg Take 0.4 mg by mouth once daily. Qty: 30 capsule Refills: 11 Associated Diagnoses:Benign prostatic hyperplasia with nocturia ezetimibe (ZETIA) 10 mg Take 10 mg by mouth once daily. Qty: 30 tablet Refills: 5 Associated Diagnoses:Mixed hyperlipidemia aspirin, enteric coated (ASPIRIN, ENTERIC COATED) 81 mg Take 81 mg by mouth once daily. !! The Whole Probiotic (Biohm) 1 capsule Take 1 capsule by mouth once daily. Treatment 3-6 months Refills: 0 !! Homocysteine [place] ([employer]) 2 capsules Take 2 capsules by mouth daily with food. Refills: 0 !! B-Complex Plus (Pure Encapsulations) 1 capsule Take 1 capsule by mouth daily with food. Refills: 0 !! ONE [place] (Pure Encapsulation) 3 capsules Take 3 capsules by mouth daily with food. Refills: 0 !! Magnesium Citrate 150mg 90 ct. (Pure Encapsulations) Take 3 capsules daily. Refills: 0 !! PureGenomics Multivitamin (Pure Encapsulations) 1 capsule Take 1 capsule by mouth daily with food. Refills: 0 !! Vitamin D3 Liquid (Pure Encapsulations) Take 3-5 drops daily, with meals Refills: 0 !! - Potential duplicate medications found. Please discuss with provider. Transitions of Care Critical Issues: Outpatient Management: * Are there important medication changes and/or outstanding issues that need to be addressed: None and see Med list above * What is the plan for follow up: See appointment list below Future Appointments Date Time Provider Department Center 02/16/2018 10:40 AM [id number] ROSADO) FAMPWS [facility] 02/24/2018 9:10 AM [id number] MAIN LBJ1-4 CARD J BLD 02/24/2018 9:30 AM [id number] MAIN [id number] CARD J BLD 02/24/2018 10:00 AM [id number] MECHANICS ECHO J3-5 PERVMN VASM J/S Bld 02/24/2018 11:00 AM 2579-KATIE CAREY (YUMIKO) CATHMN CARD J BLD 03/15/2018 3:15 PM 6160LISA MACEDO VASM J/S Bld 03/15/2018 3:15 PM 6160LISA MACEDO VASM J/S Bld 04/04/2018 8:00 AM [id number] ROSADO) [facility] 04/07/2018 1:45 PM [id number]-UNVWMPETIENNE LOWE CAWSDON [facility] 04/07/2018 1:45 PM [id number]-NQAHLZETIENNE LOWE CAWSTR [facility] 05/18/2018 7:15 AM [id number] [facility] 05/18/2018 7:15 AM [id number], CYNTHIA [facility] Functional M 05/18/2018 8:30 AM [id number]-LZOFELLY GALINDO) [facility] Functional M Highest Readmission Risk Score: 7 The 30 day readmissions risk score is derived from an internally validated risk model which evaluates patient level characteristics, utilization history, medication orders and lab results up until the day of discharge. Patients with a score of 40 or above are considered highest risk for readmission. Specific patient level drivers will be listed at the bottom of the summary. This patient?s risk for 30-day readmission is determined using the following contributing drivers Pt variables contributing to increased readmission risk: 15 Most Recent BUN Result 9.4 First Resulted Calcium During Admission 9 Active Medication Orders 1 Insurance - Medicare 1 Active Anticoagulant 1 Number of Hospitalizations (12 mos.) Electronically SIGNED by Licensed Independent Practitioner: Tushar Watts PA-C ECG COMPLETE W Observed: 02/08/2018 Status: F Source: [facility] INTERPRETATION 10:39 AM [facility] [place] REPOSITORY NAME : LILIYA ENCINAS PID : [id number] : 1950 Gender : Male Race : ORD : [id number] Procedure Date : Feb 08 2018 10:39:23 Edit Date : 2018 10:11:57 Diagnosis:SINUS BRADYCARDIA OTHERWISE NORMAL ECG Confirmed by JHONATAN ROBINS M.D. ([id number]) on 2018 10:07:47 AM Ventricular Rate : 53 BPM Atrial Rate : 53 BPM P-R Interval : 152 ms QRS Duration : 102 ms Q-T Interval : 448 ms QTC Calculation(Bezet) : 420 ms P Fullerton : 55 degrees R Fullerton : 52 degrees T Fullerton : 50 degrees Test Reason : CHEST PAIN Location : 361 : [id number] Overread By : JHONATAN ROBINS M.D. Edited By : JHONATAN ROBINS M.D. Referred By : KATLYN FAROOQ Acquired by : FIOR MONAE MGT INIT Observed: 02/08/2018 Status: COMPLETED Source: [facility] AGARWAL 9:46 AM [facility] REPOSITORY HNO ID: [id number] Author: Lulu (Rn) [place] Arciniega Service: Care Management Author Type: Registered Nurse Type: Care Mgt Initial Assessment Filed: 02/08/2018 9:51 AM Note Text: CARE MANAGEMENT: ASSESSMENT AND DISCHARGE PLAN SERVICE DATE: 02/08/2018 SERVICE TIME: 08:38 AM PRIMARY CARE PHYSICIAN: Lisa Rosado MD *Verified this is patients PCP ADMISSION STATUS: Observation Needs Prior to Discharge: To Be Determined MEDICAL: Patient/[employer] Stated Goals: To have reduction in symptoms To return home to life as it was Health Insurance: MEDICARE A AND B MMO Traditional Health Issues Impacting Discharge Plan: Readmitted with CP Last Admission Date: Previous admit date: 02/02/2018 Is this Within the Past 30 days? Yes Is This a Planned Readmission? No: New symptoms of underlying disease Followed Up with Appointment Prior to Admission: Patient scheduled, but readmitted prior Where Did the Patient Come From? Home Intervention Taken to Avoid Future Readmission? POC as per primary team. Advance Directive: Current Advance Directive: Health Care Power of Service Attendant In Chart: Yes Up To Date and Valid: Yes Health Literacy: 1. How often do you need to have someone help you when you read instructions, pamphlets, or other written material from your doctor or pharmacy? Never - 1 2. How confident are you filling out medical forms by yourself? Extremely - 1 If Patient scores > 3 on either question, the following interventions were put into place: Patient did not score > 3 FUNCTIONAL AND COGNITIVE/BEHAVIORAL PRIOR TO ADMISSION: Baseline Mental Status: Alert AND Oriented, Person, Place , Time and Situation Functional Status: Independent Does Patient Currently Receive Any Community Services or Home Care? None Equipment Prior to Admission: None Has the Patient Been in a Correction Facility in the Past 30 days? No SOCIAL: Living Arrangement: Home Lives With: Spouse Financial Resources: Employed: [employer] Primary Contact: Extended Emergency Contact Information Primary Emergency Contact: Steph Encinas Address: [address] [place] [address] [place] Mobile Relation: Spouse Supportive: Yes Other Important Patient Contacts: None Caregiver Assessment: Caregiver is ready, willing and able to meet the patient's needs as recommended by the inter-professional team? No Caregiver Needed Patient's transition needs and plan for meeting these needs: Patient is not anticipated to need a formal caregiver at discharge. Does the patient have an acute stroke diagnosis, or has the patient had a stroke during this admission? No Medication Adherence: I am convinced of the importance of my prescription medication: Agree completely - 0 I worry that my prescription medication will do more harm than good to me Disagree completely - 0 I feel financially burdened by my [id number] expenses for my prescription medication: Disagree completely - 0 Patient is categorized as low risk < 2 Are you interested in bedside delivery of your medications? Yes Food Concerns: In the Last Month, Have You had Trouble Getting Food? No trouble getting food During the Last Month, Have You Worried Whether Your Food Would Run Out Before You Had Enough Money to Buy More? No Is the Patient Psychosocially Complex? No ASSESSMENT AND PLAN: Medical Needs: None Psychosocial Needs: None FREEDOM OF CHOICE EXPLAINED: N/A POTENTIAL TRANSITION PLANS Home Patient is a 68 year old male who was admitted from [facility] with CP on 02/08/18. He was just discharged home on 02/03/18 after having LHC and PCI 02/02/18. He reports being independent and living with his in [place], [place]. 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 Will follow and plan for discharge accordingly. Anticipating no skilled needs. He reports spouse will transport him home after discharge. SIGNATURE: Lulu Arciniega RN PATIENT NAME: Liliya Encinas DATE: February 08, 2018 TIME: 9:46 AM PAGER/CONTACT #: [phone] NURSING PROG Observed: 02/08/2018 Status: COMPLETED Source: [place] 8:41 AM [facility] REPOSITORY HNO ID: [id number] Author: Lisa ElmoreRn) [place] Fregoso Service: (none) Author Type: Registered Nurse Type: Nursing Progress Note Filed: 02/08/2018 8:43 AM Note Text: Nursing Progress Note Patient Name: Liliya Encinas Patient Location: J061 [id number]/[id number] Patient reported return of prior chest pressure/pinching, rated 05/12, service notified via pager at [phone]. Patient remains under observation. This note was completed by: Lisa Fregoso RN CK, TOTAL AND CKMB Collected: 02/08/2018 Status: F Source: [place] 7:55 AM [facility] [place] REPOSITORY TYPE CODE TESTS RESULT OUT OF REFERENCE UNITS RANGE LAB CK 51-298 U/L CK 111 LAB MB <7.7 ng/mL MB 5.7 LAB CKMBRI 0.0-4.0 % High CK MB % 5.1 Result Comment: Called to and read back by: Samm J61 02/08/18 Sherry4 Heber Performed By: #### CKCKMB, TIEN #### [facility] [address] [address] TROPONIN T Collected: 02/08/2018 Status: F Source: [place] 7:55 AM [facility] REPOSITORY TYPE CODE TESTS RESULT OUT OF REFERENCE UNITS RANGE LAB TROPT 0.000-0.029 ng/mL Troponin T <0.010 Performed By: #### CKCKMB, TEIN #### [facility] [address] [address] XR CHEST 1V FRONTAL Observed: 02/08/2018 Status: F Source: [facility] 5:18 AM [facility] REPOSITORY * * *Final Report* * * DATE OF EXAM: Feb 08 2018 5:18AM ABIDA 5376 - XR CHEST 1V FRONTAL PORT / PROCEDURE REASON: Chest pain or SOB, pleurisy or effusion suspected * * * * Physician Interpretation * * * * EXAMINATION: CHEST RADIOGRAPH (PORTABLE SINGLE VIEW AP) Exam Date/Time: 02/08/2018 5:18 AM Clinical History: Chest pain or SOB, pleurisy or effusion suspected, MQ: [id number] Comparison: 02/02/2018 RESULT: See impression. IMPRESSION: Lines, tubes, and devices: None. Lungs and pleura: There is mild elevation of the right hemidiaphragm. Blunting of the right costophrenic angle may be secondary to pleural thickening/fluid. No consolidation is noted. No pneumothorax. Cardiomediastinal silhouette: Stable cardiomediastinal silhouette. Other: Remote left mid rib fractures are again noted. Lead Miner Blasting: PSCB Transcribe Date/Time: Feb 08 2018 9:58A Dictated by : MERE BAUTISTA MD This examination was interpreted and the report reviewed and electronically signed by: MERE BAUTISTA MD on Feb 08 2018 9:58AM EST [id number] CBC AND DIFFERENTIAL Collected: 02/08/2018 Status: F Source: [place] 3:10 AM [facility] REPOSITORY TYPE CODE TESTS RESULT OUT OF REFERENCE UNITS RANGE LAB WBC 3.70-11.00 k/uL WBC 5.22 LAB RBC 4.20-6.00 m/uL RBC 4.46 LAB HGB 13.0-17.0 g/dL Hemoglobin 13.9 LAB HCT 39.0-51.0 % Hematocrit 40.0 LAB MCV 80.0-100.0 fL MCV 89.7 LAB MCH 26.0-34.0 pG MCH 31.2 LAB MCHC 30.5-36.0 g/dL MCHC 34.8 LAB RDWCV 11.5-15.0 % RDW-CV 13.0 LAB PLTCT 150-400 k/uL Platelet Count 203 LAB MPV 9.0-12.7 fL MPV 9.5 LAB ANEUT % Neut% 53.7 LAB AANEUT 1.45-7.50 k/uL Abs Neut 2.79 LAB ALYMP % Lymph% 29.5 LAB AALYMP 1.00-4.00 k/uL Abs Lymph 1.54 LAB AMONO % Arroyo% 10.5 LAB AAMONO <0.87 k/uL Abs Arroyo 0.55 LAB AEOS % Eosin% 4.6 LAB AAEOS <0.46 k/uL Abs Eosin 0.24 LAB ABASO % Baso% 1.7 LAB AABASO <0.11 k/uL Abs Baso 0.09 LAB AUNRBC 0 /100 WBC NRBCs 0.0 LAB ABNRBC <0.01 k/uL Absolute nRBC <0.01 LAB DTYP DTYPE Auto Diff Performed By: #### CBCDIF, CKCKMB, CMP, TIEN #### [facility] [address] [place], [place] [id number] CK, TOTAL AND CKMB Collected: 02/08/2018 Status: F Source: [place] 3:10 AM [facility] REPOSITORY TYPE CODE TESTS RESULT OUT OF REFERENCE UNITS RANGE LAB CK 51-298 U/L CK 148 LAB MB <7.7 ng/mL MB 7.1 LAB CKMBRI 0.0-4.0 % High CK MB % 4.8 Result Comment: Called to and read back by: YUDI Pepper 02/08/18 0422 SANJU Performed By: #### CBCDIF, CKCKMB, CMP, TIEN #### [facility] [address] [place], [place] [address] COMP METABOLIC PANEL Collected: 02/08/2018 Status: F Source: [place] 3:10 AM [facility] REPOSITORY TYPE CODE TESTS RESULT OUT OF REFERENCE UNITS RANGE LAB TP 6.3-8.0 g/dL Protein, Total 6.4 LAB ALB 3.9-4.9 g/dL Albumin 4.0 LAB CA 8.5-10.2 mg/dL Calcium, Total 9.4 LAB TBIL 0.2-1.3 mg/dL Bilirubin, Total 0.3 LAB ALKP 38-113 U/L Alkaline Phosphatase 43 LAB AST 14-40 U/L AST 26 LAB GLU 74-99 mg/dL Glucose High 116 Result Comment: The [place] Diabetes Association (ADA) provides guidance for cutoff values for fasting glucose and random glucose. The ADA defines fasting as no caloric intake for at least 8 hours. Fas ting plasma glucose results between 100 to 125 mg/dL indicate increased risk for diabetes (prediabetes). Fasting plasma glucose results greater than or equal to 126 mg/dL meet the criteria for diagnosis of diabetes. In the absence of unequivocal hyperglycemia, results should be confirmed by repeat testing. In a patient with classic symptoms of hyperglycemia or hyperglycemic crisis, random plasma glucose results greater than or equal to 200 mg/dL meet the criteria for diagnosis of diabetes. Reference: Standards of Medical Care in Diabetes 2016, [place] Diabetes Association. Diabetes Care. 2016.39(Suppl 1). LAB BUN 9-24 mg/dL BUN 15 LAB CRET 0.73-1.22 mg/dL Creatinine 0.84 LAB NA 136-144 mmol/L Sodium 139 LAB K 3.7-5.1 mmol/L Potassium 3.8 LAB CL 97-105 mmol/L Chloride 105 LAB CO2 22-30 mmol/L CO2 22 LAB AGAP 9-18 mmol/L Anion Gap 12 LAB ALT 10-54 U/L ALT 22 LAB GFRAA eGFR- Amer. >60 LAB GFRNAA . eGFR-All Other Races >60 Result Comment: eGFR (Estimated GFR) Units of measure: mL/min/1.73 meters squared eGFR is derived from the reexpressed MDRD Study equation using the following parameters: serum creatinine, age, gender and race. The creatinine assay has been calibrated to be traceable to IDMS. An eGFR <60 mL/min/1.73m2 for >3 months is consistent with chronic kidney disease. Refer to KDOQI guidelines for clinical interpretation. In patients with unstable renal function, e.g. those with acute kidney injury, the eGFR may not accurately reflect actual GFR. Performed By: #### CBCDIF, CKCKMB, CMP, TIEN #### [facility] [address] [place] [id number] TROPONIN T Collected: 02/08/2018 Status: F Source: [place] 3:10 AM [facility] REPOSITORY TYPE CODE TESTS RESULT OUT OF REFERENCE UNITS RANGE LAB TROPT 0.000-0.029 ng/mL Troponin T <0.010 Performed By: #### CBCDIF, CKCKMB, CMP, TIEN #### [facility] [address] [place], [place] [address] HISTORY PHYSICAL Observed: 02/08/2018 Status: COMPLETED Source: [place] 2:38 AM [facility] REPOSITORY HNO ID: [id number] Author: Rubens Duenas MD Service: Cardiovascular Medicine Author Type: Physician Type: HANDP Filed: 2018 6:38 PM Note Text: [facility]VI STAFF: PHYSICIAN NOTE OF PERSONAL INVOLVEMENT IN CARE I have reviewed the history and physical examination obtained and documented by the fellow and I personally participated in the cadena components. I have discussed the case and management of the patient's care. The following comments revise or confirm relevant cadena components of the note and updated the problem list. IMPRESSION and PLAN: readmitted with episodes of chest discomfort relieved with NTG. Coronary angios today show widely patent mid-LAD stent. 60% angiographic stenosis proximal LAD. By iFR 0.85-0.86. IVUS: large mixed palque with significant lumen stenosis. Stented succesfully with Synergy EES. Plan: DC in AM. Has been intolerant to statins. Request aproval for Praluent 75 mg Q 2 weeks. SIGNATURE:Rubens Duenas MD DATE of SERVICE: 2018 TIME of SERVICE: 6:33 PM [facility] HISTORY AND PHYSICAL (Template ID [id number]) Liliya Encinas [id number] PRIMARY SERVICE: Cardiovascular Medicine: Intervention DATE OF ADMISSION: 02/08/2018 CHIEF COMPLAINT Chest pain HISTORY OF PRESENT ILLNESS Liliya Encinas is a 68 year old male with a history of CAD s/p PCI to PDA?in 2011 and subsequent PCI to OM3 for NSTEMI in 2013, recent PCI-mid LAD on 02/02, HTN, HLD, GERD who presents with chest pain. Patient states that he has been doing ok since he went home except for a few pinches of pain until yesterday. He was at work sitting in his office when he noted some pain in the L side of his chest. He took a NTG and pain resolved but came back in about an hour. Pain again resolved after 1 SL NTG. The pain stayed away for the rest of the day but came back around dinner time and kept recurring every 20 minutes or so though it would still subside with 1 SL NTG. After he took 2 nitros, when the pain recurred, it was more in his midline which was similar to the pain that brought him in a few days ago. He went to [facility] ED where he reports his troponin was 0.06 (I do not have this documentation and am not sure what assay this was). EKG was at baseline. He was transferred here for further management after a NTG patch was placed. He states that he is now chest pain free although on my evaluation the NTG patch has been recently removed. PAST MEDICAL HISTORY PAST MEDICAL HISTORY Diagnosis Date - Acute gastritis without mention of hemorrhage - ADHD (attention deficit hyperactivity disorder) on Lexapro - ASHD (arteriosclerotic heart disease) 04/05/2012 stent x2, Dr. 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 Riley - Testicular lesion right, s/p removal - Vitamin D insufficiency PAST SURGICAL HISTORY Procedure Laterality Date - CC PCI CORONARY INTERVENT 03/2013 X2 - COLONOSCOP W/ OR W/O [facility] SPEC TA and hyperplastic polyps removed. - COLONOSCOP W/ OR W/O [facility]RS SPEC 04/13/2017 Colonoscopy - Poor prep - 5 year follow up - COLONOSCOPY W/BX 09/11/11 repeat 5 years - EGD W/O [facility] SPECIMEN W/BX 08/26/07 - HEART SURGERY HX - PAST SURGICAL HISTORY OF removal of right testicle for pre cancer - PAST SURGICAL HISTORY OF 07/26/2006 right lung scrapping and cleaning for impiemia - PAST SURGICAL HISTORY OF remote sinus surgery - PAST SURGICAL HISTORY OF 03/22/2009 microdiscectomy- lumbar - PAST SURGICAL HISTORY OF 05/2009 cerebral meningioma - PAST SURGICAL HISTORY OF 07/2010 Micro discectomy low back - PAST SURGICAL HISTORY OF 07/2013 lumbar discectomy - PAST SURGICAL HISTORY OF Left 04/2015 ankle microfracture, fusion of forefoot - PAST SURGICAL HISTORY OF 2016 L3-L5 revision posterior decompression with TLIF - PAST SURGICAL HISTORY OF 2018 2 level cervical disc replacement - REPAIR ING HERNIA,5+Y/O,REDUCIBL right Hernia repair, inguinal - REVISE MEDIAN N/CARPAL TUNNEL SURG left Carpal tunnel decomp - REVISE MEDIAN N/CARPAL TUNNEL SURG Right 12/02/2016 Right carpal tunnel release - TRANSURETHRAL ELEC-SURG PROSTATECTOM 09/2007 - VASECTOMY FAMILY HISTORY FAMILY HISTORY Problem Relation Age of Onset - None Mother - Heart Father 80 stents x 2 - Arthritis Father SOCIAL HISTORY Social History Substance Use Topics - Smoking status: Former Smoker Packs/day: 1.00 Years: 10.00 Types: Cigarettes Quit date: 05/03/1977 - Smokeless tobacco: Never Used - Alcohol use 7.5 oz/week 5 Glasses of Wine (5oz) per week HOME MEDICATIONS ticagrelor (BRILINTA) 90 mg tablet Take 1 tablet by mouth twice daily. oxybutynin ER (DITROPAN XL) 10 mg 24 hr tablet Take 1 tablet by mouth daily at bedtime. traZODone (DESYREL) 50 mg tablet Take 1 tablet by mouth daily at bedtime. tamsulosin ER (FLOMAX) 0.4 mg cp24 Take 1 capsule by mouth once daily. ezetimibe (ZETIA) 10 mg tablet Take 1 tablet by mouth once daily. aspirin, enteric coated (ADULT LOW DOSE ASPIRIN) 81 mg EC tablet Take 1 tablet by mouth once daily. The Whole Probiotic ([employer]) Take 1 capsule by mouth once daily. Treatment 3-6 months Homocysteine [place] (OrdrIt) Take 2 capsules by mouth daily with food. B-Complex Plus (Pure Encapsulations) Take 1 capsule by mouth daily with food. ONE [place] (Pure Encapsulation) Take 3 capsules by mouth daily with food. Magnesium Citrate 150mg 90 ct. (Pure Encapsulations) Take 3 capsules daily. [employer] Multivitamin (Pure Encapsulations) Take 1 capsule by mouth daily with food. Vitamin D3 Liquid (Pure Encapsulations) Take 3-5 drops daily, with meals INPATIENT MEDICATIONS Current hospital medications: acetaminophen 650 mg tab(s) (TYLENOL) 650 mg ORAL q 4 H PRN ticagrelor 90 mg tab(s) (BRILINTA) 90 mg ORAL BID docusate sodium 100 mg cap(s) (COLACE) 100 mg ORAL BID PRN heparin 5,000 Units injection 5,000 Units SUBCUTANEOUS q 12 H tamsulosin ER 0.4 mg cap(s) (FLOMAX) 0.4 mg ORAL DAILY ezetimibe 10 mg tab(s) (ZETIA) 10 mg ORAL DAILY aspirin, enteric coated 81 mg tab(s) 81 mg ORAL DAILY traZODone 25 mg tab(s) (DESYREL) 25 mg ORAL AT BEDTIME oxybutynin ER 10 mg tab(s) (DITROPAN XL) 10 mg ORAL AT BEDTIME ALLERGIES ALLERGIES No Known Allergies REVIEW OF SYSTEMS Constitutional: No weight loss, malaise or fevers. HEENT: Negative for frequent or significant headaches, No changes in hearing or vision, no nose bleeds or other nasal problems Respiratory: Negative for cough, wheezing, or shortness of breath Cardiovascular: Per HPI Gastrointestinal: Negative for abdominal discomfort, blood in stools or black stools or change in bowel habits Genitourinary: No history of dysuria, frequency, or incontinence Endocrine: Negative for cold or heat intolerance, polyuria, polydipsia and goiter Hematologic: Negative for prolonged bleeding, bruising easily or swollen nodes Neurologic: No history or headaches, syncope, paralysis, seizures or tremors Integumentary: Negative for lesions, rash, and itching. PHYSICAL EXAM Temp 37 ?C (98.6 ?F) (Oral) Resp 16 Wt 90.8 kg (200 lb 1.6 oz) SpO2 98% BMI 26.40 kg/m? General Appearance: Well developed, Well nourished and No acute distress HEENT: PERRLA and EOM's intact Lungs: Clear Heart: Regular rate AND rhythm and no murmurs Abdomen: Soft, Non-tender and Bowel sounds present Skin: Warm, Dry and no edema Musculoskeletal: No deformities Neurologic/Psychiatric: Oriented to time, place AND person DATA Laboratory: Cholesterol, Total (mg/dL) Date Value 09/24/2017 231 Total Cholesterol, Nonfasting (mg/dL) Date Value 02/02/2018 154 HDL Cholesterol (mg/dL) Date Value 09/24/2017 69 HDL Cholesterol, Nonfasting (mg/dL) Date Value 02/02/2018 56 LDL Cholesterol (mg/dL) Date Value 09/24/2017 139 LDL Cholesterol, Nonfasting (mg/dL) Date Value 02/02/2018 65 Triglyceride (mg/dL) Date Value 09/24/2017 114 Triglycerides, Nonfasting (mg/dL) Date Value 02/02/2018 167 Hemoglobin A1C (%) Date Value 02/02/2018 5.3 EKG: Pending here, reviewed OSH EKGs and unchanged from prior Echocardiogram: No recent TTE Cardiac Catheterization: [facility] 02/02: Coronary Anatomy: Right Dominant Injection Site(s): Coronary Artery LMT: - The LMT has 30% at the bifurcation. LAD: - The proximal LAD is narrowed 60 % - focal disease. - The mid LAD is narrowed 70 % - focal disease. ?Additional Comment: - iFR of mid LAD lesion 0.83. - iFR of proximal LAD lesion 0.96 after intervention on mid LAD lesion. ? LCX: - The proximal circumflex is narrowed 50 % - focal disease. - Patent stent mid third. ? RCA: - The mid RCA is narrowed 30 % - focal disease. ?Patent PDA stent. Procedure Narrative: Lesion 1: LAD MID Guide 1: 6FR XB 3.5. ? Procedure Summary: The LM was engaged with a 6F XB 3.5 and wired with a Verratta. iFR of the LAD was 0.83 with a significant step up across the mid LAD lesion on pullback. The lesion was predilated with a 2.5x15, stented with a 3.0x24 Synergy and posted with the stent balloon at 14 james. Repeat iFR of the proximal LAD lesion was 0.96. Final angio showed no complications and good flow. ASSESSMENT AND PLAN 68 year old male with a history of CAD s/p PCI to PDA?in 2011 and subsequent PCI to OM3 for NSTEMI in 2013, recent PCI-mid LAD on 02/02, HTN, HLD, GERD who presents with chest pain. His pain does not sound very atypical in character but comes on at rest. I do not see any clear areas that would cause ischemia based on recent [facility] -- only intermediate lesion is in the LCx. Will trend biomarkers here and then determine the course of action. I do not think he warrants any further workup as long as biomarkers are negative; in that case, would consider addition of long acting nitrates to his regimen to see if this helps further recurrence of the pain. If biomarkers are positive, would have to perform repeat LHC. Will keep NPO until we have a clear plan. Of note, patient did not get an echo during last admission; will reorder today. Active Hospital Problems Diagnosis - Chest pain -- trend biomarkers -- TTE -- intensification of medical therapies if biomarkers negative vs repeat LHC if NSTEMI -- keep NPO until lab results available Case to be discussed with staff Janette Ayon MD Pager [phone] (please see below for after hours communication) 02/08/2018 2:38 AM For communication after 5 pm on weekdays and after 12 pm on weekends, please page the following: - Clinical Cardiology patients on all floors: page [phone] - Other Cardiology patients on J5 and J6: page [phone] - Other Cardiology patients on J7 and J8: page [phone] NURSING PROG Observed: 02/08/2018 Status: COMPLETED Source: VASHON 1:55 AM [facility] REPOSITORY O ID: [id number] Author: Mojgan (Rn) [place] El Service: (none) Author Type: Registered Nurse Type: Nursing Progress Note Filed: 02/08/2018 1:57 AM Note Text: Admission/Transfer Note PATIENT NAME: Liliya Encinas Patient transferred to [facility] Emergency Room via stretcher in stable condition. Actions taken: Patient oriented to room, call light function, prescribed activities, Patient rights and Quiet at night. The patient has been instructed on the plan of care and safety plan. Patient belongings with patient. No futher actions taken at this time. Will continue to monitor and check with patient. Skin check with [place] Smith. This note was completed by: MOJGAN EL RN EMERGENCY DEPARTMENT Observed: 02/07/2018 Status: F Source: CONGRESS SUMMARY 9:14 PM [facility] REPOSITORY [facility] Medical Records Department [address] [place] [address] Emergency Department Summary 02/07/182111 MR#: [id number] Acct: [id number] Name: LILIYA ENCINAS Rep #: [id number] : 1950 67 From: Katlyn Farooq DO PCP: Aquiles Rosado MD Status: REG ER - ER Visit Summary Date of Service: 02/07/18 Chief Complaint: [Chest pain] History of Present Illness: The patient is a 67 M [presents with complaint of chest pain that started at 9 AM this morning. Patient states that pain initially started while at rest. Patient took a nitroglycerin which immediately resolved his discomfort however an hour later it came back. Patient took a second nitroglycerin which again resolved his pain. This afternoon patient started having pain once again and he took 3 nitro at home but it did not completely resolve his pain so he presents to the ER for further evaluation. Patient tells me that he did have a cardiac stent placed 1 week ago at the [facility]. Patient has had one other prior stent as well. Patient does have a history of coronary artery disease, hypertension, high cholesterol. Patient denies recent travel or surgery.] Physical Examination: [HEENT-PERRLA, EOMI. Cranial nerves II through XII grossly intact. TMs clear. Mucous membranes moist. No adenopathy. Cardiovascular-regular rate and rhythm without murmur or ectopy Lungs-clear to auscultation, chest wall stable without crepitus or subcu emphysema Abdomen-normoactive bowel sounds, soft, nontender, no rebound or rigidity, no peritoneal signs. Extremities-intact 4, normal range of motion, normal pulses, atraumatic] Test Results: [EKG obtained arrival shows sinus rhythm with a ventricular rate of 65 bpm with no acute ST segment changes.] CBC with differential was normal. Chemistries unremarkable. Troponin was slightly elevated at 0.066 Emergency Department Course and Treatment: [And received aspirin in the emergency department as well as 1 sublingual nitroglycerin tablet which resolved his pain and he had an inch of Nitropaste placed to the anterior chest wall.] Treatment Plan: [Patient will require admission however he is requesting transfer to [facility] where he had his stent placed 1 week ago. Plan will be discussed case with [facility] and transfer patient to their facility] Disposition: [Transfer] Impression: [Chest pain-rule out acute coronary syndrome] This note was generated with [employer] dictation software. It may contain incorrect words, spelling, and punctuation that were not noted in review of the chart prior to signing ED Disposition - Plan for ED Patient: Chief Complaint: Chest Pain Referrals: Aquiles Rosado MD [Primary Care Provider] - What to do if you have Problems For any increased pain, shortness of breath, bleeding, nausea or vomiting, chest pain, or any unexpected problems, contact your Primary Care Provider. Call [facility] ([phone]) or report to the closest Emergency Room. Call 911 if necessary. 02/07/182113 <Electronically signed by Katlyn Farooq DO> Date Katlyn Farooq DO Cosigner Signature (If Indicated): Date CC: Aquiles Rosado MD CHEST 1 VIEW Observed: 02/07/2018 Status: F Source: CONGRESS (PORTABLE) 8:01 PM [facility] REPOSITORY [facility] Imaging Services [address] [place] [address] [id number] Chest 1 View (Portable) MR#: [id number] Acct: [id number] Name: LILIYA ENCINAS Rep #: [id number] : 1950 67 From: Zoey Contreras MD PCP: Aquiles Rosado MD Status: REG ER Study: Chest 1 View (Portable) Date of Exam: 02/07/18 Exam# [id number] Ordering Dr: Katlyn Farooq DO STUDY: X-RAY CHEST REASON FOR EXAM: Male, 67 years old. Chest pain, status post stent placement. TECHNIQUE: February 01, 2018. COMPARISON: None. FINDINGS: The lungs are clear and expanded. There is chronic scarring of the right costophrenic angle. There is no pleural effusion. Normal size heart. Normal mediastinum and dora. Normal visualized pulmonary arteries. Normal visualized aortic arch and descending thoracic aorta. Old healed left rib fractures are noted. Soft tissues are unremarkable. RAD/Chest 1 View (Portable) IMPRESSION: No acute process. Electronically Signed: Zoey Contreras MD at 20:53 EDT Tel , Service support , CC: Aquiles Rosado MD; Katlyn Farooq DO [employer]: Signed CBC W/DIFF, AUTOMATED Collected: 02/07/2018 Status: F Source: GALI 7:40 PM [facility] REPOSITORY TYPE CODE TESTS RESULT OUT OF RANGE REFERENCE UNITS LAB L100.1000 4.4-11.0 K/mm3 Normal WBC 4.6 LAB L100.1200 4.6-6.2 M/mm3 Low RBC 4.55 LAB L100.1300 13.0-16.5 g/dl Normal HGB 14.1 LAB L100.1400 40-54 % Normal HCT 41.2 LAB L100.1500 80-94 fL Normal MCV 90.5 LAB L100.1600 27.0-32.0 pg Normal MCH 31.0 LAB L100.1700 32-36 g/gl Normal MCHC 34.2 LAB L100.1810 11.6-14.6 % Normal RDW CV 13.4 LAB L100.1820 35.1-43.9 fl Normal RDW SD 43.8 LAB L100.1900 150-450 K/mm3 Normal PLT 217 LAB L100.2000 6.2-12.0 fl Normal MPV 9.4 LAB L100.2100 47-70 % Normal NEUT% 49.9 LAB L100.2200 19-41 % Normal LY% 30.7 LAB L100.2300 0-10 % High MONO% 11.5 LAB L100.2400 0-5 % High EO% 5.7 LAB L100.2500 0-1 % High BASO% 2.2 LAB L100.2550 0.0-0.9 % Normal IM GRAN % 0.000 Result Comment: IG% - Immature Granulocytes (promyelocytes, myelocytes and metamyelocytes) > 1% indicates that a LEFT SHIFT is Present. LAB L100.2620 2.0-7.7 X10 3/uL Normal Absolute Neut 2.3 LAB L100.2720 0.83-4.51 X10 3/ul Normal Absolute Lymph 1.41 Performed By: #### L100.0100 #### [facility] [address] [place], [place], [address] BASIC METABOLIC Collected: 02/07/2018 Status: F Source: GALI PROFILE (BMP) 7:40 PM [facility] REPOSITORY TYPE CODE TESTS RESULT OUT OF RANGE REFERENCE UNITS LAB L501.0100 74-106 mg/dL Normal GLU 81 Result Comment: Please note revised GLUCOSE reference range effective 2017. LAB L501.1000 7-18 mg/dL High BUN 19 LAB L501.1100 0.70-1.30 mg/dL Normal CREAT,SERUM 0.92 Result Comment: The validity of the calculated GFR AND GFRAA in patients over 70 years has not been determined. Clinical correlation is essential. LAB L501.1110 >60 mL/min Normal EST GFR 88 Result Comment: Non- GFR Calc LAB L501.1115 >60 mL/min Normal EST GFR - AA 106 Result Comment: GFR Calc LAB L501.1255 ml/min Normal Estimated CRCL 82.65 LAB L501.1300 10-20 RATIO High BUN/CRE 20.7 LAB L501.2200 8.5-10 mg/dL Normal .1 CA 9.0 LAB L501.5300 136-14 mmol/L Normal 5 NA 140 LAB L501.5600 3.5-5. mmol/L Normal 1 K 4.0 LAB L501.5900 98-107 mmol/L Normal CL 106 LAB L501.6100 21.0-3 mmol/L Normal 2.0 CO2 27.0 LAB L501.6200 5-15 Normal GAP 7 Performed By: #### L500.2500, L501.4010 #### [facility] [address] [place], [place], [address] TROPONIN-I Collected: 02/07/2018 Status: F Source: GALI 7:40 PM [facility] REPOSITORY TYPE CODE TESTS RESULT OUT OF RANGE REFERENCE UNITS LAB L501.4010 <0.045 ng/mL High 0.066 TROPONIN-I Result Comment: TROPONIN-I EXPECTED VALUES <0.045 Negative 0.045 - 0.590 Consistent with Cardiac Damage > OR = 0.600 Critical Value Not every elevated troponin is indicative of WI. These values should be used with clinical judgement in examining the patient's clinical picture for diagnosis. To establish a diagnosis of WI versus myocardial injury, there must be a demonstrated rise and/or fall in the troponin values, in addition to ischemic symptoms, EKG changes, new regional wall motion abnormality, and/or angiographical evidence. PLEASE NOTE: REFERENCE RANGES EDITED 17 Performed By: #### L500.2500, L501.4010 #### [facility] [address] [place], [address] 12 LEAD ELECTROCARDIOGRAM Observed: 02/07/2018 Status: F Source: CONGRESS 3:39 PM [facility] REPOSITORY [facility] Cardiovascular Services [address] [place] [address] 12 Lead EKG 02/01/18 1905 MR#: [id number] Acct: [id number] Name: LILIYA ENCINAS Rep #: [id number] : 1950 67 From: Willie Araya MD Attending Dr: Status: DEP ER Ordering Dr: Sanjeev Farrell DO Date: 02/01/18 Location: ED Sex: M C Admitted: Test Reason : CP Blood Pressure : / mmHG Vent. Rate : 059 BPM Atrial Rate : 059 BPM P-R Int : 150 ms QRS Dur : 096 ms QT Int : 436 ms P-R-T Axes : 053 065 036 degrees QTc Int : 431 ms Sinus bradycardia Otherwise normal ECG Confirmed by WILLIE ARAYA MD ([id number]), editorial manager MURRAY CHAPARRO ([id number]) on 02/07/2018 3:38:29 PM Referred By: JADON Confirmed By:WILLIE ARAYA MD 02/07/18 1538 Date Willie Araya MD CC: Aquiles Rosado MD; Sanjeev Farrell Signed PROGRESS Observed: 02/04/2018 Status: COMPLETED Source: FAY 11:36 AM [facility] REPOSITORY HNO ID: [id number] Author: Amelie Carrillo Service: (none) Author Type: (none) Type: Progress Notes Filed: 03/07/2018 3:00 AM Note Text: TRANSITION CARE MANAGEMENT (TCM) INITIAL CONTACT Director Of Patient Care Outreach Provider Action/FYI: Patient is coming in on 02/16/2018 for hospital follow up from 02/02/2018. Initial contact with patient post discharge, spoke to patient. Patient identified by name and . TRANSITION CARE MANAGEMENT INITIAL OUTREACH DOCUMENTATION: Date of Outreach: 02/04/2018 Outreach Attempt 1: Contact Made Date of Discharge 02/03/2018 Some recent data might be hidden SUMMARY: -Pt discharged from [facility] on 02/03/2018. -Admitted for: PT was admitted with chest pain and positive outside Trop I Do you have a hospital follow up appointment with your PCP? Appointment on with 02/16. Yes. Remind patient of appointment date, time, and location. If not within 14 calendar days of discharge - please reschedule accordingly. MEDICATIONS: Many patients have questions or concerns about their medications once they are home. Were you prescribed any new medications? Yes, Ticagrelor (Brilinta) 90 mg tablets Were you told to hold any medications? No Were any of your medications discontinued? No Do you have any questions about getting or taking your medications? No Your discharge instructions/After visit Summary (AVS) are important in guiding you through the recovery process. Is there anything I might help you understand? No Do you have all the necessary equipment and supplies at home? Yes Medical records from recent hospitalization: Yesica KHAN Observed: 02/04/2018 Status: COMPLETED Source: VASHON 12:00 AM [facility] REPOSITORY Patient Outreach (FAMPWS) LILIYA ENCINAS ([id number]) 1950 M Date Time Provider Department 02/04/18 LISA ROSADO) CHANELLWS During your visit today, we recorded the following information about you: Amelie Carrillo 03/07/2018 3:00 AM Signed TRANSITION CARE MANAGEMENT (TCM) INITIAL CONTACT Director Of Patient Care Outreach Provider Action/FYI: Patient is coming in on 02/16/2018 for hospital follow up from 02/02/2018. Initial contact with patient post discharge, spoke to patient. Patient identified by name and . TRANSITION CARE MANAGEMENT INITIAL OUTREACH DOCUMENTATION: Date of Outreach: 02/04/2018 Outreach Attempt 1: Contact Made Date of Discharge 02/03/2018 Some recent data might be hidden SUMMARY: -Pt discharged from [facility] on 02/03/2018. -Admitted for: PT was admitted with chest pain and positive outside Trop I Do you have a hospital follow up appointment with your PCP? Appointment on with 02/16. Yes. Remind patient of appointment date, time, and location. If not within 14 calendar days of discharge - please reschedule accordingly. MEDICATIONS: Many patients have questions or concerns about their medications once they are home. Were you prescribed any new medications? Yes, Ticagrelor (Brilinta) 90 mg tablets Were you told to hold any medications? No Were any of your medications discontinued? No Do you have any questions about getting or taking your medications? No Your discharge instructions/After visit Summary (AVS) are important in guiding you through the recovery process. Is there anything I might help you understand? No Do you have all the necessary equipment and supplies at home? Yes Medical records from recent hospitalization: Yesica Rosado MD 02/16/2018 10:30 AM Signed Reviewed. Will discuss at OV today. Allergies As of Date: 02/04/2018 (No Known Allergies) Date Reviewed: 02/03/2018 Reviewed by: Rose Marie Agustin) [place] Young - Fully Assessed Prescriptions as of 02/04/2018 Sig: TICAGRELOR 90 MG TABLET Take 1 tablet by mouth twice * OXYBUTYNIN CHLORIDE ER 10 MG * Take 1 tablet by mouth daily * TRAZODONE 50 MG TABLET Take 1 tablet by mouth daily * Patient taking differently: Take 50 mg by mouth daily at * EZETIMIBE 10 MG TABLET Take 1 tablet by mouth once d* X TAMSULOSIN 0.4 MG CAPSULE Take 1 capsule by mouth once * ASPIRIN 81 MG TABLET,DELAYED * Take 1 tablet by mouth once d* OTC NUTRITIONAL SUPPLEMENT Take 1 capsule by mouth once * OTC NUTRITIONAL SUPPLEMENT Take 2 capsules by mouth valentin* OTC NUTRITIONAL SUPPLEMENT Take 1 capsule by mouth daily* OTC NUTRITIONAL SUPPLEMENT Take 3 capsules by mouth valentin* OTC NUTRITIONAL SUPPLEMENT Take 3 capsules daily. OTC NUTRITIONAL SUPPLEMENT Take 1 capsule by mouth daily* OTC NUTRITIONAL SUPPLEMENT Take 3-5 drops daily, with me* Problem List As Of Date 02/04/2018 Noted Resolved PERS HX TOBACCO USE [Z87.891] INVALID FOR* Abdominal pain, epigastric [R10.13] INVALID FOR*02/18/2010 Attention deficit disorder with hyperactivity [*INVALID FOR* NOCTURIA [R35.1] INVALID FOR* Pain in soft tissues of limb [M79.609] INVALID FOR*02/18/2010 Empyema without mention of fistula [J86.9] INVALID FOR*03/31/2017 Pain in joint, shoulder region [M25.519] INVALID FOR*04/06/2017 Esophagitis, unspecified [K20.9] INVALID FOR*04/06/2017 Acute gastritis without mention of hemorrhage [*INVALID FOR*03/31/2017 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 Tear of medial cartilage or meniscus of knee, c*INVALID FOR*04/06/2017 Lumbar radiculopathy [M54.16] INVALID FOR* ED (erectile dysfunction) [N52.9] INVALID FOR* Low testosterone [E34.9] INVALID FOR*03/31/2017 Benign neoplasm of colon [D12.6] INVALID FOR*03/31/2017 SUMMARY [V999.95] INVALID FOR* More... Unstable angina [I20.0] INVALID FOR*07/12/2012 Priority: A More... Dyslipidemia (high LDL; low HDL) [E78.5] INVALID FOR* Priority: C More... Sinus infection [J32.9] INVALID FOR*12/12/2011 More... Need for prophylactic measure [Z29.9] INVALID FOR*03/31/2017 More... Tubular adenoma of colon [D12.6] INVALID FOR* Presence of drug coated stent in posterior desc*INVALID FOR* ASCVD (arteriosclerotic cardiovascular disease)*INVALID FOR*03/31/2017 ASHD (arteriosclerotic heart disease) [I25.10] INVALID FOR* Right carpal tunnel syndrome [G56.01] INVALID FOR*04/06/2017 CAD (coronary artery disease) [I25.10] INVALID FOR* Priority: E More... Primary hypertension [I10] INVALID FOR* More... Diarrhea [R19.7] INVALID FOR*03/31/2017 More... Non-ST elevation myocardial infarction (NSTEMI)*INVALID FOR* More... Presence of drug coated stent in left circumfle*INVALID FOR* Lumbar foraminal stenosis [M99.83] INVALID FOR*03/31/2017 Lumbar spondylosis [M47.816] INVALID FOR* Priority: A Neural foraminal stenosis of lumbar spine [M99.*INVALID FOR* Priority: A More... 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 Cervical radiculopathy [M54.12] INVALID FOR* S/P cervical disc replacement [Z98.890] INVALID FOR* Priority: C Acute postoperative pain [G89.18] INVALID FOR* Priority: D More... Benign prostatic hyperplasia with urinary obstr*INVALID FOR* ACS (acute coronary syndrome) (HCC) [I24.9] INVALID FOR* More... Coronary artery disease involving tunica-biloxi chaves*INVALID FOR* More... Post PTCA [Z98.61] INVALID FOR* More... Encounter Status:Closed by YESICA, PRODUSER on 03/07/18 CASE MANAGEM Observed: 02/03/2018 Status: COMPLETED Source: VASHON 12:21 PM [facility] REPOSITORY HNO ID: [id number] Author: Tony ElmoreRn) [place] Spears Service: Case Management Author Type: Registered Nurse Type: Care Mgt Progress Note Filed: 02/03/2018 12:24 PM Note Text: CARE MANAGEMENT DISCHARGE NOTE SERVICE DATE: 02/03/2018 SERVICE TIME: 12:21 PM LOS: 1 day Admission Date: 02/02/2018 DISCHARGE ARRANGEMENT (list agency and phone number) Home CAREGIVER ASSESSMENT: Caregiver is ready, willing and able to meet the patient's needs as recommended by the inter-professional team? No Caregiver Needed Patient's transition needs and plan for meeting these needs: Independent Does the patient have an acute stroke diagnosis, or has the patient had a stroke during this admission? No HANDOFF COMMUNICATION: Primary Care Physician: Lisa Rosado MD () TRANSPORTATION ARRANGEMENTS: Car family ADDITIONAL CONTACT RESOURCES: none Needs Prior to Discharge: Ready for Discharge Plan of care discussed with primary team ready for discharge no skilled needs. Ready for discharge from CM standpoint. SIGNATURE: Tony Spears RN PATIENT NAME: Liliya Encinas DATE: February 03, 2018 TIME: 12:21 PM PAGER/CONTACT #: [phone] NURSING PROG Observed: 02/03/2018 Status: COMPLETED Source: VASHON 11:30 AM [facility] REPOSITORY HNO ID: [id number] Author: Sanjay ElmoreRn) [place] Vee Service: (none) Author Type: Registered Nurse Type: Nursing Progress Note Filed: 02/03/2018 11:33 AM Note Text: Nursing Progress Note Patient Name: Liliya Encinas Patient Location: J073 014/J7-3-14 Daily Note:Pt was stable and had belonging when discharged. IVs and tele removed. Pt left unit ambulatory, after declining wheelchair. This note was completed by: Sanjay Vee RN PROGRESS Observed: 02/03/2018 Status: COMPLETED Source: VASHON 8:13 AM [facility] REPOSITORY [facility] ID: [id number] Author: Wilma Renee (Pa) Service: Cardiovascular Medicine Author Type: Physician Floor Technician Type: Progress Notes Filed: 02/03/2018 1:20 PM Note Text: [facility] CARDI[facility]ULAR [facility]ICINE PROGRESS NOTE (Template ID [id number]) Liliya Encinas [id number] PRIMARY SERVICE: Hvi Card Intervention HOSPITAL DAY: # 1 INTERVAL HISTORY Pt is sleeping, awake him up. According to his RN he would like to be DC about noon today. He has no chest pain or dyspnea. He has no wrist pain. 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 PHYSICAL EXAM BP 110/66 Pulse (!) 58 Temp 36.2 ?C (97.2 ?F) (Oral) Resp 18 Ht 185.4 cm (6' 1) Wt 88.6 kg (195 lb 5.2 oz) SpO2 96% BMI 25.77 kg/m? Intake/Output Summary (Last 24 hours) at 02/03/18 0821 Last data filed at 02/03/18 0237 Gross per 24 hour Intake 240 ml Output 1800 ml Net -1560 ml General Appearance: Well developed and No distress HEENT: EOM's intact, JVD - no and Bruits - no Lungs: Clear Heart: Regular rate AND rhythm,no murmur , S1, S2 normal, S4 present, Edema and Vascular: Pulses -+2 intact, R wrist ok, no pain Abdomen: Soft, Round, Non-tender, Bowel sounds present, Bruits - no and Organomegaly - no Skin: Warm and Dry Musculoskeletal: No deformities Neurologic/Psychiatric: Oriented to time, place AND person MEDICATIONS Current hospital medications: tamsulosin ER 0.4 mg cap(s) (FLOMAX) 0.4 mg ORAL DAILY ezetimibe 10 mg tab(s) (ZETIA) 10 mg ORAL DAILY aspirin, enteric coated 81 mg tab(s) 81 mg ORAL DAILY oxybutynin ER 10 mg tab(s) (DITROPAN XL) 10 mg ORAL AT BEDTIME traZODone 50 mg tab(s) (DESYREL) 50 mg ORAL AT BEDTIME acetaminophen 325-650 mg tab(s) (TYLENOL) 325-650 mg ORAL q 4 H PRN docusate sodium 100 mg cap(s) (COLACE) 100 mg ORAL BID PRN ticagrelor 90 mg tab(s) (BRILINTA) 90 mg ORAL BID influenza vaccine 180 mcg (Patients 65 years and older) (PF) (FLUZONE HIGH DOSE ) 0.5 mL INTRAMUSCULAR ONCE (IMMUNIZATION) DATA Recent Labs 02/03/1845202/02/18410 WBC 5.41 4.64 HB 13.5 14.5 HCT 39.6 43.2 PLT 225 231 Recent Labs 02/03/1845202/02/18410 NA 141 141 K 4.0 3.9 CO2 21* 19* BUN 16 15 CREAT 0.96 0.86 GLUC 118* 93 MG 2.0 2.2 IMAGING ASSESSMENT AND PLAN Pt is a 67 year old male that was admitted with NSTEMI with known history of CAD s/p prior PCI to the PDA 2011 and OM 2013 CK and Trop negative here at the [facility] Plan to proceed with cardiac cath Problem Dyslipidemia (High Ldl; Low Hdl) H: H/o intolerance to statin A: on zetia Component Latest Ref Rng AND Units 02/02/2018 Total Cholesterol, Nonfasting <200 mg/dL 154 Triglycerides, Nonfasting <150 mg/dL 167 (H) HDL Cholesterol, Nonfasting >39 mg/dL 56 LDL Cholesterol, Nonfasting <100 mg/dL 65 Non HDL Cholesterol, Nonfasting <130 mg/dL 98 VLDL Cholesterol, Nonfasting <30 mg/dL 33 (H) Total Chol/HDL Ratio, Nonfasting <5.10 mg/dL 2.75 LDL/HDL Ratio, Nonfasting <2.54 mg/dL 1.16 P: could benefit from referral to prevention Post Ptca PCI FAY to LAD Acs (Acute Coronary Syndrome) (Hcc) H: Known CAD s/p PCI to the PDA in 2011 subsequest PCI to OM3 in 2013 A: now presenting with chest pain and + outside hospital elevation in Trop I Here CK negative and Trop T negative Underwent cardiac cath with Dr. Morales Impression: - Significant mid LAD lesion by iFR (0.83). - Moderate proximal LAD lesion (0.96 by iFR) after mid LAD intervention. - Patent LCx and distal RCA stents PCI FAY to LAD 02-02-2018 P: DAPT statin intolerant on Zetia Coronary Artery Disease Involving [place] Coronary Artery of [place] Heart With Unstable Angina Pectoris (Hcc) See NSTEMI Statin Intolerance See dyslipidemia Primary Hypertension H: present on admit A: no BP meds noted at home BP stable 110/66 P: monitor for need for initiation Case to be discussed with staff Wilma Renee PA-C Pager [phone] (please see below for after hours communication) 02/03/2018 8:13 AM Discussed with staff, ok to MS home, smita called to his local pharmacy [facility] Care Coordination Discharge Management: I personally spent greater than 30 minutes involved in the discharge management of this patient. All medications and potential SE were discussed with the Patient. Wilma Renee PA-C 8:22 AM CBC Collected: 02/03/2018 Status: F Source: [facility] 4:53 AM [facility] REPOSITORY TYPE CODE TESTS RESULT OUT OF REFERENCE UNITS RANGE LAB WBC 3.70-11.00 k/uL WBC 5.41 LAB RBC 4.20-6.00 m/uL RBC 4.38 LAB HGB 13.0-17.0 g/dL Hemoglobin 13.5 LAB HCT 39.0-51.0 % Hematocrit 39.6 LAB MCV 80.0-100.0 fL MCV 90.4 LAB MCH 26.0-34.0 pG MCH 30.8 LAB MCHC 30.5-36.0 g/dL MCHC 34.1 LAB RDWCV 11.5-15.0 % RDW-CV 13.2 LAB PLTCT 150-400 k/uL Platelet Count 225 LAB MPV 9.0-12.7 fL MPV 9.4 LAB ABSNUC <0.01 k/uL Absolute nRBC <0.01 Performed By: #### CBC, BMP, MG1 #### [facility] [address] [place], [place] [address] BASIC METABOLIC PANL Collected: 02/03/2018 Status: F Source: [place] 4:53 AM [facility] REPOSITORY TYPE CODE TESTS RESULT OUT OF REFERENCE UNITS RANGE LAB GLU 74-99 mg/dL High Glucose 118 Result Comment: The [place] Diabetes Association (ADA) provides guidance for cutoff values for fasting glucose and random glucose. The ADA defines fasting as no caloric intake for at least 8 hours. Fas ting plasma glucose results between 100 to 125 mg/dL indicate increased risk for diabetes (prediabetes). Fasting plasma glucose results greater than or equal to 126 mg/dL meet the criteria for diagnosis of diabetes. In the absence of unequivocal hyperglycemia, results should be confirmed by repeat testing. In a patient with classic symptoms of hyperglycemia or hyperglycemic crisis, random plasma glucose results greater than or equal to 200 mg/dL meet the criteria for diagnosis of diabetes. Reference: Standards of Medical Care in Diabetes 2016, [place] Diabetes Association. Diabetes Care. 2016.39(Suppl 1). LAB BUN 9-24 mg/dL BUN 16 LAB CRET 0.73-1.22 mg/dL Creatinine 0.96 LAB NA 136-144 mmol/L Sodium 141 LAB K 3.7-5.1 mmol/L Potassium 4.0 LAB CL 97-105 mmol/L Chloride High 107 LAB CO2 22-30 mmol/L Low CO2 21 LAB AGAP 9-18 mmol/L Anion Gap 13 LAB CA 8.5-10.2 mg/dL Calcium, Total 9.3 LAB GFRAA eGFR- Amer. >60 LAB GFRNAA . eGFR-All Other Races >60 Result Comment: eGFR (Estimated GFR) Units of measure: mL/min/1.73 meters squared eGFR is derived from the reexpressed MDRD Study equation using the following parameters: serum creatinine, age, gender and race. The creatinine assay has been calibrated to be traceable to IDMS. An eGFR <60 mL/min/1.73m2 for >3 months is consistent with chronic kidney disease. Refer to KDOQI guidelines for clinical interpretation. In patients with unstable renal function, e.g. those with acute kidney injury, the eGFR may not accurately reflect actual GFR. Performed By: #### CBC, BMP, MG1 #### [facility] [address] [place] [id number] MAGNESIUM Collected: 02/03/2018 Status: F Source: [place] 4:53 AM [facility] REPOSITORY TYPE CODE TESTS RESULT OUT OF REFERENCE UNITS RANGE LAB MG 1.7-2.3 mg/dL Magnesium 2.0 Performed By: #### CBC, BMP, MG1 #### [facility] [address] [place] [address] CNCO Observed: 02/03/2018 Status: COMPLETED Source: [place] 12:00 AM [facility] REPOSITORY Letter Text CARDIOLOGY [facility] [place], [place] [address] February 03, 2018 TO WHOM IT MAY CONCERN: This is to confirm that Liliya Encinas has been under Dr Rivers's care at the [facility] in the cardiology. He can return to work on Wednesday02-07-2018, no restrictions. Sincerely yours, Wilma Renee PA-C for Dr Rivers [phone] PLAN OF CARE Observed: 02/02/2018 Status: COMPLETED Source: [place] 10:44 AM [facility] REPOSITORY HNO ID: [id number] Author: Esha Fortune MD (Fel) Service: Cardiovascular Medicine Author Type: Fellow Type: Plan of Care Filed: 02/02/2018 10:53 AM Note Text: Cardiac Catheterization Laboratory Pre-Catheterization Procedure Note Liliya Encinas : 1950 ALLERGIES No Known Allergies Last 2 Encounter Wt Readings: Date: Wt: 02/01/2018 89.9 kg (198 lb 4.8 oz) 01/10/2018 91.3 kg (201 lb 3.2 oz) 67 year old male with HTN, HLD, CAD s/p PCI to PDA (2011) and OM3 (2013) here with NSTEMI ( trop T undetectable, MB% 4.2). Cath requested by Dr. Rivers. PLANNED PROCEDURE: Left heart cath +/- PCI INDICATION FOR PROCEDURE: Symptoms (angina, chest pain, dyspnea, etc.) ISSUES RELEVANT TO PROCEDURE: Other: none Cardiac Risk Factors/Pertinent History: ? Smoking: Used to smoke 1 ppd, but quit 40 years ago ? Hyperlipidemia: yes ? Hypertension: yes ? Family History of Coronary Disease: yes ? Diabetes: no On insulin No ? History of COPD or Asthma: no ? History of PAD: no ? History of prior CABG: no ? History of prior PCI: yes ? History of CHF: no. Can lay flat No Anti-Ischemic Medications: none Antiplatelet/Anticoagluation Medications: Aspirin 81 mg, Ticagrelor 90 mg Other notable medications: no HGB 14.5 02/02/2018 Hematocrit 43.2 02/02/2018 Platelet Count 231 02/02/2018 Creatinine 0.86 02/02/2018 PT INR 1.0 02/02/2018 Estimated Creatinine Clearance: 96.8 mL/min (based on SCr of 0.86 mg/dL). Prior Cardiac Imaging/Procedures: ECG: sinus bradycardia TTE (08/2016): - LVEF 60%, decreased cavity with stress, normal wall motion; RV normal - Aortic valve normal, Mitral valve normal - Aortic size 3.4 (mid) Prior Cath (10/2013): LM: normal LAD: 40-50% mid LCx: 30% ostial, severe disease in AV circumflex s/p 2.25 x 12 mm Resolute RCA: 30-40% mid RCA disease, distal stent patent GRAFTS: none Access: R radial Catheters: 4Fr PAST MEDICAL HISTORY Diagnosis Date - Acute gastritis without mention of hemorrhage - ADHD (attention deficit hyperactivity disorder) on Lexapro - ASHD (arteriosclerotic heart disease) 04/05/2012 stent x2, Dr. 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 Riley - Testicular lesion right, s/p removal - Vitamin D insufficiency Current outpatient medications: oxybutynin ER (DITROPAN XL) 10 mg 24 hr tablet Take 1 tablet by mouth daily at bedtime. traZODone (DESYREL) 50 mg tablet Take 1 tablet by mouth daily at bedtime. tamsulosin ER (FLOMAX) 0.4 mg cp24 Take 1 capsule by mouth once daily. ezetimibe (ZETIA) 10 mg tablet Take 1 tablet by mouth once daily. aspirin, enteric coated (ADULT LOW DOSE ASPIRIN) 81 mg EC tablet Take 1 tablet by mouth once daily. The Whole Probiotic ([employer]) Take 1 capsule by mouth once daily. 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 B-Complex Plus (P[employer]caps[employer]) Take 1 capsule by mouth daily with food. ONE [place] (Pure Encapsulation) Take 3 capsules by mouth daily with food. Magnesium Citrate 150mg 90 ct[address] (Pure Encapsulations) Take 3 capsules daily. [employer] Multivitamin (Pure Encapsulations) Take 1 capsule by mouth daily with food. Vitamin D3 Liquid (Pure Encapsulations) Take 3-5 drops daily, with meals Current hospital medications: tamsulosin ER 0.4 mg cap(s) (FLOMAX) 0.4 mg ORAL DAILY ezetimibe 10 mg tab(s) (ZETIA) 10 mg ORAL DAILY aspirin, enteric coated 81 mg tab(s) 81 mg ORAL DAILY oxybutynin ER 10 mg tab(s) (DITROPAN XL) 10 mg ORAL AT BEDTIME traZODone 50 mg tab(s) (DESYREL) 50 mg ORAL AT BEDTIME acetaminophen 325-650 mg tab(s) (TYLENOL) 325-650 mg ORAL q 4 H PRN docusate sodium 100 mg cap(s) (COLACE) 100 mg ORAL BID PRN ticagrelor 90 mg tab(s) (BRILINTA) 90 mg ORAL BID Cholesterol, Total 154 02/02/2018 Triglyceride 167 02/02/2018 HDL Cholesterol 56 02/02/2018 LDL Chol, Vivian 65 02/02/2018] CK 123 02/02/2018 MB 5.2 02/02/2018 Troponin T <0.010 02/02/2018] Esha Fortune MD Cardiovascular Medicine Fellow Pager: February 02, 2018 CASE ANTONIO INIT Observed: 02/02/2018 Status: COMPLETED Source: [facility] 9:36 AM [facility] REPOSITORY HNO ID: [id number] Author: Ling (Rn) PHOENIX Cunningham Service: Care Management Author Type: Registered Nurse Type: Care Mgt Initial Assessment Filed: 02/02/2018 9:49 AM Note Text: CARE MANAGEMENT: ASSESSMENT AND DISCHARGE PLAN SERVICE DATE: 02/02/2018 SERVICE TIME: 9:30 AM PRIMARY CARE PHYSICIAN: Lisa Rosado MD -confirmed ADMISSION STATUS: Inpatient Needs Prior to Discharge: To Be Determined MEDICAL: Patient/[employer] Stated Goals: To have reduction in symptoms Health Insurance: MEDICARE A AND B [facility] Health Issues Impacting Discharge Plan: None Last Admission Date: Previous admit date: 08/10/2017 Is this Within the Past 30 days? No Advance Directive: Current Advance Directive: Health Care Power of Service Attendant In Chart: Yes Up To Date and Valid: Yes Health Literacy: 1. How often do you need to have someone help you when you read instructions, pamphlets, or other written material from your doctor or pharmacy? Never - 1 2. How confident are you filling out medical forms by yourself? Extremely - 1 If Patient scores > 3 on either question, the following interventions were put into place: Patient did not score > 3 FUNCTIONAL AND COGNITIVE/BEHAVIORAL PRIOR TO ADMISSION: Baseline Mental Status: Alert AND Oriented, Person, Place , Time and Situation Functional Status: Independent Does Patient Currently Receive Any Community Services or Home Care? None Equipment Prior to Admission: None Has the Patient Been in a Correction Facility in the Past 30 days? 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 No Caregiver Needed Patient's transition needs and plan for meeting these needs: Pt will transition home independent Does the patient have an acute stroke diagnosis, or has the patient had a stroke during this admission? No Medication Adherence: I am convinced of the importance of my prescription medication: Agree completely - 0 I worry that my prescription medication will do more harm than good to me Disagree completely - 0 I feel financially burdened by my [id number] expenses for my prescription medication: Disagree completely - 0 Patient is categorized as low risk < 2 Are you interested in bedside delivery of your medications? No Food Concerns: In the Last Month, Have You had Trouble Getting Food? No trouble getting food During the Last Month, Have You Worried Whether Your Food Would Run Out Before You Had Enough Money to Buy More? No Is the Patient Psychosocially Complex? No ASSESSMENT AND PLAN: Medical Needs: 2 or more chronic diseases Psychosocial Needs: None FREEDOM OF CHOICE EXPLAINED: N/A POTENTIAL TRANSITION PLANS No Services Indicated Pt admitted for evaluation of chest pain. Met with pt at bedside. 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 Pt will have discharge transportation. Plan for discharge home with basic need unless pt has surgical procedure this admission at which time CM will re-assess discharge needs. SIGNATURE: Ling Cunningham RN PATIENT NAME: Liliya Encinas DATE: February 02, 2018 TIME: 9:36 AM PAGER/CONTACT #: [phone] XR CHEST 1V FRONTAL Observed: 02/02/2018 Status: F Source: [facility] 8:04 AM [facility] REPOSITORY * * *Final Report* * * DATE OF EXAM: Feb 02 2018 8:04AM [id number] - XR CHEST 1V FRONTAL PORT / PROCEDURE REASON: Chest pain or SOB, pleurisy or effusion suspected * * * * Physician Interpretation * * * * EXAMINATION: CHEST RADIOGRAPH (PORTABLE SINGLE VIEW AP) Exam Date/Time: 02/02/2018 8:04 AM Clinical History: Chest pain or SOB, pleurisy or effusion suspected, MQ: [id number] Comparison: 07/20/2017 RESULT: See impression. IMPRESSION: Lines, tubes, and devices: None. Lungs and pleura: No airspace consolidations. Stable linear scarring or atelectasis in the right lower lobe with associated mild smooth pleural thickening along the right CP recess. Associated stable mild elevation of the right hemidiaphragm. No pleural effusion or pneumothorax. Cardiomediastinal silhouette: Stable cardiomediastinal silhouette. Other: Stable remote left-sided rib fracture deformities.. [employer]: AMADA Transcribe Date/Time: Feb 02 2018 10:34A Dictated by : JAYLEEN BEVERLY MD This examination was interpreted and the report reviewed and electronically signed by: JAYLEEN BEVERLY MD on Feb 02 2018 10:34AM EST [id number] ECG COMPLETE W Observed: 02/02/2018 Status: F Source: [facility] INTERPRETATION 4:56 AM [facility] REPOSITORY NAME : LILIYA ENCINAS PID : [id number] : 1950 Gender : Male Race : ORD : [id number] Procedure Date : Feb 02 2018 04:56:40 Edit Date : Feb 03 2018 14:52:55 Diagnosis:SINUS BRADYCARDIA OTHERWISE NORMAL ECG Confirmed by JHONATAN ROBINS M.D. ([id number]) on 02/03/2018 2:50:02 PM Ventricular Rate : 49 BPM Atrial Rate : 49 BPM P-R Interval : 158 ms QRS Duration : 108 ms Q-T Interval : 460 ms QTC Calculation(Bezet) : 415 ms P [place] : 58 degrees R [place] : 68 degrees T [place] : 68 degrees Test Reason : ACS Location : 353 : [id number] Overread By : JHONATAN ROBINS M.D. Edited By : JHONATAN ROBINS M.D. Referred By : SANJEEV FARRELL Acquired by : ARACELI ELMORE CBC Collected: 02/02/2018 Status: F Source: [place] 4:11 AM [facility] REPOSITORY TYPE CODE TESTS RESULT OUT OF REFERENCE UNITS RANGE LAB WBC 3.70-11.00 k/uL WBC 4.64 LAB RBC 4.20-6.00 m/uL RBC 4.66 LAB HGB 13.0-17.0 g/dL Hemoglobin 14.5 LAB HCT 39.0-51.0 % Hematocrit 43.2 LAB MCV 80.0-100.0 fL MCV 92.7 LAB MCH 26.0-34.0 pG MCH 31.1 LAB MCHC 30.5-36.0 g/dL MCHC 33.6 LAB RDWCV 11.5-15.0 % RDW-CV 12.9 LAB PLTCT 150-400 k/uL Platelet Count 231 LAB MPV 9.0-12.7 fL MPV 9.2 LAB ABSNUC <0.01 k/uL Absolute nRBC <0.01 Performed By: #### CBC, PT, PTT, CMP, LIPNF, CKCKMB, MG1, NTBNP, TIEN, TSH, HBA1C #### [facility] [address] [place], [place] [address] PROTIME Collected: 02/02/2018 Status: F Source: [place] 4:11 AM [facility] REPOSITORY TYPE CODE TESTS RESULT OUT OF RANGE REFERENCE UNITS LAB PSEC 9.7-13.0 sec PT Sec 10.1 LAB INR 0.9-1.3 PT INR 1.0 Result Comment: Vitamin K Antagonist (VKA) Therapeutic Range: INR 2 to 3 (Target INR of 2.5) Note: For patients treated with VKA drugs, such as warfarin, the [place] [employer] 2012 Guideline recommends a therapeutic INR range of 2 to 3 (target INR of 2.5). This recommendation includes high-risk patients with antiphospholipid syndrome with previous arterial or venous thromboembolism, current-generation mechanical or bioprosthetic aortic heart valve replacement. Note: Patients with mechanical aortic valve replacement and additional risk factors for thromboembolic events (atrial fibrillation, previous thromboembolism, LV dysfunction, hypercoagulable conditions) or an older generation mechanical AVR (i.e., ball in-Cage) or any mechanical MVR should have a INR therapeutic range of 2.5 to 3.5 (target INR of 3). Janae OLIVARES, et al. Chest 2012, 141:7S-47S Cesar RA, et al. [facility] 2017, 70: 252-289 Performed By: #### CBC, PT, PTT, CMP, LIPNF, CKCKMB, MG1, NTBNP, TIEN, TSH, HBA1C #### [facility] [address] [place], [place] [address] APTT Collected: 02/02/2018 Status: F Source: [place] 4:11 AM [facility] REPOSITORY TYPE CODE TESTS RESULT OUT OF RANGE REFERENCE UNITS LAB APTT 23.0-32.4 sec APTT 28.6 Result Comment: Unfractionated Heparin Therapeutic Ranges: Standard Heparin Nomogram: 53 to 78 seconds (anti-Xa level of 0.3 to 0.7 U/ml) Low Dose/ACS Nomogram: 49 to 67 seconds (anti-Xa level of 0.2 to 0.5 U/ml) Stroke Treatment Nomogram: 49 to 67 seconds (anti-Xa level of 0.2 to 0.5 U/ml) Note: The APTT therapeutic range has been determined for the current lot of laboratory APTT reagent in use throughout the [facility]. Performed By: #### CBC, PT, PTT, CMP, LIPNF, CKCKMB, MG1, NTBNP, TIEN, TSH, HBA1C #### [facility] [address] [place], [place] [address] COMP METABOLIC PANEL Collected: 02/02/2018 Status: F Source: [place] 4:11 AM [facility] REPOSITORY TYPE CODE TESTS RESULT OUT OF REFERENCE UNITS RANGE LAB TP 6.3-8.0 g/dL Protein, Total 6.3 LAB ALB 3.9-4.9 g/dL Albumin 4.2 LAB CA 8.5-10.2 mg/dL Calcium, Total 9.2 LAB TBIL 0.2-1.3 mg/dL Bilirubin, Total 0.2 LAB ALKP 38-113 U/L Alkaline Phosphatase 46 LAB AST 14-40 U/L AST 25 Result Comment: Results may be falsely increased due to interference by hemolysis. Suggest reorder as clinically indicated. LAB GLU 74-99 mg/dL Glucose 93 Result Comment: The [place] Diabetes Association (ADA) provides guidance for cutoff values for fasting glucose and random glucose. The ADA defines fasting as no caloric intake for at least 8 hours. Fas ting plasma glucose results between 100 to 125 mg/dL indicate increased risk for diabetes (prediabetes). Fasting plasma glucose results greater than or equal to 126 mg/dL meet the criteria for diagnosis of diabetes. In the absence of unequivocal hyperglycemia, results should be confirmed by repeat testing. In a patient with classic symptoms of hyperglycemia or hyperglycemic crisis, random plasma glucose results greater than or equal to 200 mg/dL meet the criteria for diagnosis of diabetes. Reference: Standards of Medical Care in Diabetes 2016, [place] Diabetes Association. Diabetes Care. 2016.39(Suppl 1). LAB BUN 9-24 mg/dL BUN 15 LAB CRET 0.73-1.22 mg/dL Creatinine 0.86 LAB NA 136-144 mmol/L Sodium 141 LAB K 3.7-5.1 mmol/L Potassium 3.9 LAB CL 97-105 mmol/L Chloride High 109 LAB CO2 22-30 mmol/L Low CO2 19 LAB AGAP 9-18 mmol/L Anion Gap 13 LAB ALT 10-54 U/L ALT 23 LAB GFRAA eGFR- Amer. >60 LAB GFRNAA . eGFR-All Other Races >60 Result Comment: eGFR (Estimated GFR) Units of measure: mL/min/1.73 meters squared eGFR is derived from the reexpressed MDRD Study equation using the following parameters: serum creatinine, age, gender and race. The creatinine assay has been calibrated to be traceable to IDMS. An eGFR <60 mL/min/1.73m2 for >3 months is consistent with chronic kidney disease. Refer to KDOQI guidelines for clinical interpretation. In patients with unstable renal function, e.g. those with acute kidney injury, the eGFR may not accurately reflect actual GFR. Performed By: #### CBC, PT, PTT, CMP, LIPNF, CKCKMB, MG1, NTBNP, TIEN, TSH, HBA1C #### [facility] [address] [place] [id number] LIPID PANEL, NONFAST Collected: 02/02/2018 Status: F Source: [facility] 4:11 AM [facility] REPOSITORY TYPE CODE TESTS RESULT OUT OF REFERENCE UNITS RANGE LAB CHOLNF <200 mg/dL Total Cholesterol NF 154 Result Comment: <200 mg/dL, Desirable 200-239 mg/dL, Borderline high >239 mg/dL, High LAB TRIGNF <150 mg/dL Triglycerides, NF High 167 Result Comment: <150 mg/dL, Normal 150-199 mg/dL, Borderline high 200-499 mg/dL, High >499 mg/dL, Very high LAB HDLNF >39 mg/dL HDL Cholesterol, NF 56 Result Comment: 40-59 mg/dL, Acceptable >59 mg/dL, High: Negative risk factor for coronary heart disease <40 mg/dL, Low: Positive risk factor for coronary heart disease LAB LDLNF <100 mg/dL LDL Cholesterol, NF 65 Result Comment: <100 mg/dL, Optimal 100-129 mg/dL, Near optimal/above optimal 130-159 mg/dL, Borderline high 160-189 mg/dL, High >189 mg/dL, Very high Secondary prevention optimal LDL Cholesterol levels are recommended to be < 70 mg/dL LAB NOHDLN <130 mg/dL Non HDL Chol, 98 NF Result Comment: <130 mg/dL, Optimal 130-159 mg/dL, Near optimal/above optimal 160-189 mg/dL, Borderline high 190-219 mg/dL, High >219 mg/dL, Very high Secondary prevention optimal non HDL Cholesterol levels are recommended to be < 100 mg/dL LAB VLDLNF <30 mg/dL VLDL Cholesterol, High NF 33 LAB TCHDLN <5.10 mg/dL T Chol/HDL Ratio NF 2.75 LAB LDLHDN <2.54 mg/dL LDL/HDL Ratio, NF 1.16 Result Comment: Reference: 1. National Cholesterol Education Program ATP III Guideline At-A-Glance Quick Desk Reference: National Heart, Lung, and Blood [place]. National Institutes of Health. 2001: NIH Publication No. 01-3305. 2. An International Atherosclerosis Society position paper: global recommendations for the management of dyslipidemia: executive summary, Atherosclerosis. 2014: 232(2):410-413. Performed By: #### CBC, PT, PTT, CMP, LIPNF, CKCKMB, MG1, NTBNP, TIEN, TSH, HBA1C #### [facility] [address] [address] CK, TOTAL AND CKMB Collected: 02/02/2018 Status: F Source: VASHON 4:11 AM [facility] [place] REPOSITORY TYPE CODE TESTS RESULT OUT OF REFERENCE UNITS RANGE LAB CK 51-298 U/L CK 123 LAB MB <7.7 ng/mL MB 5.2 LAB CKMBRI 0.0-4.0 % High CK MB % 4.2 Result Comment: Called to and read back by: Negra [id number] 02/02/18 0556 Adis Performed By: #### CBC, PT, PTT, CMP, LIPNF, CKCKMB, MG1, NTBNP, TIEN, TSH, HBA1C #### [facility] [address] [address] MAGNESIUM Collected: 02/02/2018 Status: F Source: VASHON 4:11 AM [facility] REPOSITORY TYPE CODE TESTS RESULT OUT OF REFERENCE UNITS RANGE LAB MG 1.7-2.3 mg/dL Magnesium 2.2 Result Comment: Results may be falsely increased due to interference by hemolysis. Suggest reorder as clinically indicated. Performed By: #### CBC, PT, PTT, CMP, LIPNF, CKCKMB, MG1, NTBNP, TIEN, TSH, HBA1C #### [place] [address] NT PRO BNP Collected: 02/02/2018 Status: F Source: VASHON 4:11 AM [facility] REPOSITORY TYPE CODE TESTS RESULT OUT OF REFERENCE UNITS RANGE LAB PBNP <125 pg/mL PRO B Natr <50 Peptide Performed By: #### CBC, PT, PTT, CMP, LIPNF, CKCKMB, MG1, NTBNP, TIEN, TSH, HBA1C #### [place] [address] TROPONIN T Collected: 02/02/2018 Status: F Source: VASHON 4:11 AM [facility] REPOSITORY TYPE CODE TESTS RESULT OUT OF REFERENCE UNITS RANGE LAB TROPT 0.000-0.029 ng/mL Troponin T <0.010 Performed By: #### CBC, PT, PTT, CMP, LIPNF, CKCKMB, MG1, NTBNP, TIEN, TSH, HBA1C #### [place] [address] TSH Collected: 02/02/2018 Status: F Source: VASHON 4:11 AM [facility] REPOSITORY TYPE CODE TESTS RESULT OUT OF RANGE REFERENCE UNITS LAB TSH 0.400-5.500 uU/mL TSH 4.080 Performed By: #### CBC, PT, PTT, CMP, LIPNF, CKCKMB, MG1, NTBNP, TIEN, TSH, HBA1C #### [place] [id number] HEMOGLOBIN A1C Collected: 02/02/2018 Status: F Source: FAY 4:11 AM [facility] REPOSITORY TYPE CODE TESTS RESULT OUT OF REFERENCE UNITS RANGE LAB HGBA1C 4.3-5.6 % Hemoglobin A1c 5.3 LAB HBA0 mg/dL Est. Average Glucose 105 Result Comment: eAG: (Estimated average glucose) is a calculated value from HgbA1c and is personal service representative of the average blood glucose level in the last 2-3 month period. Performed By: #### CBC, PT, PTT, CMP, LIPNF, CKCKMB, MG1, NTBNP, TIEN, TSH, HBA1C #### [facility] [address] [place], [place] [address] NURSING PROG Observed: 02/02/2018 Status: COMPLETED Source: VASHON 2:43 AM [facility] REPOSITORY HNO ID: [id number] Author: Saida (Rn) Jyoti Gandhi RN Service: (none) Author Type: Registered Nurse Type: Nursing Progress Note Filed: 02/02/2018 2:48 AM Note Text: Admission/Transfer Note PATIENT NAME: Liliya Encinas Patient admitted from OSH via stretcher in stable condition. Actions taken: The patient has been instructed on the plan of care Patient belongings with patient. Pt introduced to my safety plan, yellow wrist band on, yellow sacks on, yellow falling leaf at the the door, bed alarm on, and pt educated to use call light system and call for assistance. Skin assessed with Akilah Jack Rn and skin issues on assessment. This note was completed by: Saida Gandhi RN HISTORY PHYSICAL Observed: 02/02/2018 Status: COMPLETED Source: VASHON 2:41 AM [facility] REPOSITORY HNO ID: [id number] Author: Lisa Rivers Service: Cardiovascular Medicine Author Type: Physician Type: HANDP Filed: 02/02/2018 3:47 PM Note Text: [facility] HISTORY AND PHYSICAL Liliya Encinas [id number] PRIMARY SERVICE: Cardiovascular Medicine: Intervention DATE OF ADMISSION: 02/02/2018 CHIEF COMPLAINT: Chest pain HISTORY OF PRESENT ILLNESS Liliya Encinas is a 67 year old male with a history of CAD s/p PCI to PDA?in 2011 and subsequent PCI to OM3 for NSTEMI in 2013, HTN, HLD, GERD who presents with NSTEMI. Patient reports that the chest pain began earlier yesterday while he was at rest and not exerting himself. He described a chest pressure right over the center of his chest occasionally radiating to the left chest. The pain came and went and lasted for a few hours when it was present. He did not have any associated dyspnea, n/v, palpitations, dizziness. He took nitroglycerin tabs before he went to the ED but he was not having chest pain at that point. He got concerned given his past NSTEMI and went to the ED for further evaluation. 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 He reports that he is fairly active and does a good amount of walking, ellipitical and light weight-lifting- he never has angina during these activities. He has been unable to tolerate statins in the past due to severe leg cramps and is currently on zetia. 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 In the [facility]- his EKG was unremarkable. His initial troponin I was negative then became positive to 0.05. He has been chest pain free since 4pm. He received a full dose of aspirin and lovenox 90mg at 10pm and was transferred to [facility]. PAST MEDICAL HISTORY PAST MEDICAL HISTORY Diagnosis Date - Acute gastritis without mention of hemorrhage - ADHD (attention deficit hyperactivity disorder) on Lexapro - ASHD (arteriosclerotic heart disease) 04/05/2012 stent x2, Dr. 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 Riley - Testicular lesion right, s/p removal - Vitamin D insufficiency PAST SURGICAL HISTORY PAST SURGICAL HISTORY Procedure Laterality Date - CC PCI CORONARY INTERVENT 03/2013 X2 - COLONOSCOP W/ OR W/O [facility] SPEC TA and hyperplastic polyps removed. - COLONOSCOP W/ OR W/O [facility] SPEC 04/13/2017 Colonoscopy - Poor prep - 5 year follow up - COLONOSCOPY W/BX 09/11/11 repeat 5 years - EGD W/O [facility] SPECIMEN W/BX 08/26/07 - HEART SURGERY HX - PAST SURGICAL HISTORY OF removal of right testicle for pre cancer - PAST SURGICAL HISTORY OF 07/26/2006 right lung scrapping and cleaning for impiemia - PAST SURGICAL HISTORY OF remote sinus surgery - PAST SURGICAL HISTORY OF 03/22/2009 microdiscectomy- lumbar - PAST SURGICAL HISTORY OF 05/2009 cerebral meningioma - PAST SURGICAL HISTORY OF 07/2010 Micro discectomy low back - PAST SURGICAL HISTORY OF 07/2013 lumbar discectomy - PAST SURGICAL HISTORY OF Left 04/2015 ankle microfracture, fusion of forefoot - PAST SURGICAL HISTORY OF 2016 L3-L5 revision posterior decompression with TLIF - PAST SURGICAL HISTORY OF 2018 2 level cervical disc replacement - REPAIR ING HERNIA,5+Y/O,REDUCIBL right Hernia repair, inguinal - REVISE MEDIAN N/CARPAL TUNNEL SURG left Carpal tunnel decomp - REVISE MEDIAN N/CARPAL TUNNEL SURG Right 12/02/2016 Right carpal tunnel release - TRANSURETHRAL ELEC-SURG PROSTATECTOM 09/2007 - VASECTOMY FAMILY HISTORY FAMILY HISTORY Problem Relation Age of Onset - None Mother - Heart Father 80 stents x 2 - Arthritis Father SOCIAL HISTORY Social History Substance Use Topics - Smoking status: Former Smoker Packs/day: 1.00 Years: 10.00 Types: Cigarettes Quit date: 05/03/1977 - Smokeless tobacco: Never Used - Alcohol use 7.5 oz/week 5 Glasses of Wine (5oz) per week HOME MEDICATIONS oxybutynin ER (DITROPAN XL) 10 mg 24 hr tablet Take 1 tablet by mouth daily at bedtime. traZODone (DESYREL) 50 mg tablet Take 1 tablet by mouth daily at bedtime. tamsulosin ER (FLOMAX) 0.4 mg cp24 Take 1 capsule by mouth once daily. ezetimibe (ZETIA) 10 mg tablet Take 1 tablet by mouth once daily. aspirin, enteric coated (ADULT LOW DOSE ASPIRIN) 81 mg EC tablet Take 1 tablet by mouth once daily. The Whole Probiotic ([employer]) Take 1 capsule by mouth once daily. Treatment 3-6 months Homocysteine [place] ([employer]) Take 2 capsules by mouth daily with food. B-Complex Plus (Pure Encapsulations) Take 1 capsule by mouth daily with food. ONE [place] (Pure Encapsulation) Take 3 capsules by mouth daily with food. Magnesium Citrate 150mg 90 ct[address] (P[employer] Encapsulations) Take 3 capsules daily. Pure[employer] Multivitamin (Pure Encapsulations) Take 1 capsule by mouth daily with food. Vitamin D3 Liquid (P[employer] Encapsulations) Take 3-5 drops daily, with meals INPATIENT MEDICATIONS No current hospital medications on file. ALLERGIES ALLERGIES No Known Allergies PHYSICAL EXAM BP 146/66 Pulse (!) 57 Temp 36.6 ?C (97.9 ?F) (Oral) Resp 18 Wt 89.9 kg (198 lb 4.8 oz) SpO2 97% BMI 26.16 kg/m? General Appearance: No acute distress HEENT: PERRLA and EOM's intact Neck: No JVD noted Lungs: Clear with no wheezes or crackles Heart: Regular rate AND rhythm and S1, S2 normal Abdomen: Soft, Non-tender and Bowel sounds present Skin: Warm and Dry Musculoskeletal: No deformities Neurologic/Psychiatric: Oriented to time, place AND person and No gross focal neurologic deficits DATA Laboratory: Cholesterol, Total (mg/dL) Date Value 09/24/2017 231 HDL Cholesterol (mg/dL) Date Value 09/24/2017 69 LDL Cholesterol (mg/dL) Date Value 09/24/2017 139 Triglyceride (mg/dL) Date Value 09/24/2017 114 Hemoglobin A1C (%) Date Value 09/24/2017 5.3 EKG: Sinus bradycardia. No ischemic changes. Chest Radiograph: No acute process. Stress ECHO 08/2016 - Exam indication: Pre-op, hx of CAD - The exercise stress echo was negative for ischemia at 97 % of MPHR (11.7 METS). Good functional capacity for age and gender. No regional wall motion abnormality seen at heart rate achieved. - The left ventricle is normal in size. There is mild concentric left ventricular hypertrophy. Left ventricular systolic function is normal. EF = 61 ? 5% (2D biplane) Indeterminate left ventricular diastolic dysfunction. - The right ventricle is normal in size. Right ventricular systolic function is normal. - The left atrial cavity is mildly dilated. - Exam was compared with the prior echocardiographic exam performed on 10/27/2013. No significant change Cardiac Catheterization 10/2013: Findings: - LM: angiographically normal - LAD: 40-50% mid LAD disease - LCx: 30% ostial LCx disease. Likely severe disease in the AV circumflex s/p PCI x2 to OM - RCA: 30-40% mid RCA disease. Stent in the distal RCA extending into the PDA without significant stenosis ASSESSMENT AND PLAN Liliya Encinas is a 67 year old male with a history of CAD s/p PCI to PDA?in 2011 and subsequent PCI to OM3 for NSTEMI in 2013, HTN, HLD, GERD who presents with NSTEMI. NSTEMI- EKG no ischemic changes, troponin I negative then up to 0.052 at [facility]. Currently chest pain free. - Trend enzymes - Heparin starting at 10AM (received lovenox at 10pm) - Cath ordered, NPO - TTE ordered - Asa, brilinta loaded - Hold statin given intolerance despite several dosing strategies in the past (work-up for PCSK9 inhibitor as outpatient) - Hold BB for now given bradycardia BPH - Continue home flommax/ditropan Case to be discussed with staff Janey Beavers MD Fellow, Cardiovascular Medicine, PGY-5 Pager: [phone] 02/02/2018 2:41 AM For communication after 5 pm on weekdays and after 12 pm on weekends, please page the following: - Clinical Cardiology patients on all floors: page [phone] - Other Cardiology patients on J5 and J6: page [phone] - Other Cardiology patients on J7 and J8: page [phone] [facility] [place] STAFF PHYSICIAN NOTE OF PERSONAL INVOLVEMENT IN CARE Component Latest Ref Rng AND Units 02/02/2018 Protein, Total 6.3 - 8.0 g/dL 6.3 Albumin 3.9 - 4.9 g/dL 4.2 Calcium 8.5 - 10.2 mg/dL 9.2 Bilirubin, Total 0.2 - 1.3 mg/dL 0.2 Alkaline Phosphatase 38 - 113 U/L 46 AST 14 - 40 U/L 25 Glucose 74 - 99 mg/dL 93 BUN 9 - 24 mg/dL 15 Creatinine 0.73 - 1.22 mg/dL 0.86 Sodium 136 - 144 mmol/L 141 Potassium 3.7 - 5.1 mmol/L 3.9 Chloride 97 - 105 mmol/L 109 (H) CO2 22 - 30 mmol/L 19 (L) Anion Gap 9 - 18 mmol/L 13 ALT 10 - 54 U/L 23 eGFR- >60 eGFR-All Other Races . >60 WBC 3.70 - 11.00 k/uL 4.64 RBC 4.20 - 6.00 m/uL 4.66 Hemoglobin 13.0 - 17.0 g/dL 14.5 Hematocrit 39.0 - 51.0 % 43.2 MCV 80.0 - 100.0 fL 92.7 MCH 26.0 - 34.0 pG 31.1 MCHC 30.5 - 36.0 g/dL 33.6 RDW-CV 11.5 - 15.0 % 12.9 Platelet Count 150 - 400 k/uL 231 MPV 9.0 - 12.7 fL 9.2 Absolute nRBC <0.01 k/uL <0.01 Total Cholesterol, Nonfasting <200 mg/dL 154 Triglycerides, Nonfasting <150 mg/dL 167 (H) HDL Cholesterol, Nonfasting >39 mg/dL 56 LDL Cholesterol, Nonfasting <100 mg/dL 65 Non HDL Cholesterol, Nonfasting <130 mg/dL 98 VLDL Cholesterol, Nonfasting <30 mg/dL 33 (H) Total Chol/HDL Ratio, Nonfasting <5.10 mg/dL 2.75 LDL/HDL Ratio, Nonfasting <2.54 mg/dL 1.16 CK 51 - 298 U/L 123 MB <7.7 ng/mL 5.2 CK MB % 0.0 - 4.0 % 4.2 (H) Hemoglobin A1C 4.3 - 5.6 % 5.3 Estimated Average Glucose mg/dL 105 PT Sec 9.7 - 13.0 sec 10.1 PT INR 0.9 - 1.3 1.0 Troponin T 0.000 - 0.029 ng/mL <0.010 Magnesium 1.7 - 2.3 mg/dL 2.2 NT Pro BNP <125 pg/mL <50 TSH 0.400 - 5.500 uU/mL 4.080 APTT 23.0 - 32.4 sec 28.6 IMPRESSION: Lines, tubes, and devices: ?None. Lungs and pleura: ?No airspace consolidations. ?Stable linear scarring or atelectasis in the right lower lobe with associated mild smooth pleural thickening along the right CP recess. ?Associated stable mild elevation of the right hemidiaphragm. ?No pleural effusion or pneumothorax. Cardiomediastinal silhouette: ?Stable cardiomediastinal silhouette. Other: ?Stable remote left-sided rib fracture deformities.. IMPRESSION: Patient is a 67 year old male per [employer] search - I have not seen previously in office I did place his 2014 stent in OM3 for Dr. 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 Lowe and Dr Brown - CAD s/p PCI to PDA?in 2011 and subsequent PCI to OM3 for NSTEMI in 2013 episode of CP prompting OSH ED visit POC troponin elevated and transferred to [facility] total and troponin Lab here are negative no ROBERT plan given prior Hx CAD and stents and concern for ACS - proceed with LH +/- unless subsequent CE elevate here I would not label as nonSTEMI and would not put on heparin unless recurrent CP and/or elevation of CE continue DAPT - asa and brilinta statin intolerance - will need to have PCSK9i pursued by his continuity cards as OP on zetia not on BB d/t bradycardia no ACEI/ARB as we have no evidence for decrease in EF PLAN: [facility] +/- plan reviewed with patient - on phone who could not hear me - and bedside RN I have reviewed the documentation obtained and documented by the Fellow and have reviewed and updated the problem list as appropriate. I have personally performed a face to face assessment of the patient and have personally participated in the cadena components. I have discussed the case and management of the patient's care. Counseling (Inpatient): I personally spent 45 total minutes involved in the care of this patient. Greater than 50% of the time was spent counseling and/or coordinating care for the patient, the nature of which is noted above. STAFF PHYSICIAN: Lisa Rivers MD DATE OF SERVICE: February 02, 2018 TIME OF SERVICE: 8:18 AM Addendum [facility] today previous stents open ostial Circ 50% LAD mid severe with significant IFR - Stented by Dr. Duenas continue DAPT continue RF control anticipate DC tomorrow f/u local cardiology spoke with pt and updated on telephone Lisa Rivers MD February 02, 2018 3:47 PM EMERGENCY DEPARTMENT Observed: 02/01/2018 Status: F Source: CONGRESS SUMMARY 11:37 PM [facility] REPOSITORY [facility] Medical Records Department [address] [place] [address] Emergency Department Summary 02/01/182001 MR#: [id number] Acct: [id number] Name: LILIYA ENCINAS Rep #: [id number] : 1950 67 From: Sanjeev Oliveira PCP: Aquiles Rosado MD Status: REG ER - ER Visit Summary Date of Service: 02/01/18 Chief Complaint: Chest pain History of Present Illness: The patient is a 67 M intermittent chest tightness since yesterday. Pain would travel to the right and then to the left. No pain in the arms. No dyspnea, nausea, diaphoresis. States symptoms last for 2 hours and go away. Last onset of symptoms was 3 PM, lasting 2 hours. Patient takes baby aspirins in the morning, states prior to arrival took a full dose aspirin along with 2 nitroglycerin. Intermittent lightheaded symptoms since yesterday. No syncopal episodes. No recent vomiting or diarrhea. History of coronary disease with end STEMI x2, last was more than 5 years ago. 2 stents. Followed by [facility], Dr. Lowe. Stents were placed at [facility]. No recent travel, surgery, or immobilizations. No history of PE or DVT. History of hypercholesterolemia. No diabetes or hypertension. Currently symptoms are resolved. Physical Examination: General: Alert and oriented 3, no acute distress HEENT: Normocephalic, atraumatic. Moist mucosa membranes Neck: supple, nontender. Cardiovascular: Regular rate and rhythm, no murmurs Respiratory: Normal breath sounds, symmetric, no distress Abdomen: Soft, nontender, nondistended Extremities: Nontender, no edema, pulses intact 4 Neuro: no focal neurological deficits. Test Results: EKG: Sinus rate of [address] or T wave changes. Hemoglobin 14. Creatinine 0.85. Troponin #1 0.015. Troponin II 0.052. INR 0.9. PTT 29.1. Chest x-ray negative. Emergency Department Course and Treatment: Patient symptom- free on arrival. EKG sinus rhythm no ST changes. Patient took aspirin at home. Initial cardiac workup negative. Patient does have risk factors, I discussed with him falls in the moderate risk range. Recommended admission for further evaluation. However he states he did not want to stay in the hospital. However he was in agreement's for repeat troponin. 3-hour draw was obtained, results was elevated indeterminate range at 0.052. We discussed with the patient, he remained symptom-free. He was given Lovenox. Heart scores a 6. PAULA score is 5. He would like to go to [facility] where his previous cardiac cath and stents have been placed. Currently on page for discussion. Discussed with car wash attendant automatic Dr. Gongora who accepts the transfer. Treatment Plan: [] Disposition: Plan transfer Impression: 1. Anginal chest pain 2. Elevated troponin This note was generated with [employer] dictation software. It may contain incorrect words, spelling, and punctuation that were not noted in review of the chart prior to signing ED Disposition - Plan for ED Patient: Disposition: [facility] - Main Chief Complaint: Chest Pain Diagnosis: Anginal chest pain at rest, Elevated troponin Referrals: Aquiles Rosado MD [Primary Care Provider] - What to do if you have Problems For any increased pain, shortness of breath, bleeding, nausea or vomiting, chest pain, or any unexpected problems, contact your Primary Care Provider. Call [facility] ([phone]) or report to the closest Emergency Room. Call 911 if necessary. 02/01/18 1381 <Electronically signed by Sanjeev Oliveira> Date Sanjeev Oliveira Cosigner Signature (If Indicated): Date CC: Aquiles Rosado MD TROPONIN-I Collected: 02/01/2018 Status: F Source: CONGRESS 10:10 PM [facility] REPOSITORY Order Comment: 'TROP' Serial specimen #1, #2 or #3: 2 TYPE CODE TESTS RESULT OUT OF RANGE REFERENCE UNITS LAB L501.4010 <0.045 ng/mL High 0.052 TROPONIN-I Result Comment: TROPONIN-I EXPECTED VALUES <0.045 Negative 0.045 - 0.590 Consistent with Cardiac Damage > OR = 0.600 Critical Value Not every elevated troponin is indicative of WI. These values should be used with clinical judgement in examining the patient's clinical picture for diagnosis. To establish a diagnosis of WI versus myocardial injury, there must be a demonstrated rise and/or fall in the troponin values, in addition to ischemic symptoms, EKG changes, new regional wall motion abnormality, and/or angiographical evidence. PLEASE NOTE: REFERENCE RANGES EDITED 17 Performed By: #### L501.4010 #### [facility] [address] [place], [address] CHEST PA AND LATERAL Observed: 02/01/2018 Status: F Source: CONGRESS 7:35 PM [facility] REPOSITORY [facility] Imaging Services [address] [place] [address] Chest PA and Lateral MR#: [id number] Acct: [id number] Name: LILIYA ENCINAS Rep #: [id number] : 1950 M 67 From: Oliver Infante MD PCP: Aquiles Rosado MD Status: REG ER Study: Chest PA and Lateral Date of Exam: 02/01/18 Exam# [id number] Ordering Dr: Sanjeev Farrell DO STUDY: X-RAY CHEST REASON FOR EXAM: Male, 67 years old. Chest pain TECHNIQUE: PA and lateral views of the chest. COMPARISON: October 26, 2013 FINDINGS: There are monitoring devices. The lungs are clear. There is stable elevation of the right hemidiaphragm.. There is no demonstrated pleural abnormality. Normal size heart. Normal mediastinum and dora. Normal visualized pulmonary arteries. Normal visualized aortic arch and descending thoracic aorta. Normal visualized thoracic spine. There are stable left rib fractures. There is no demonstrated abnormality of the visualized soft tissue structures of the upper abdomen. RAD/Chest PA and Lateral IMPRESSION: Degenerative changes, as described above. No demonstrated acute cardiopulmonary process. Electronically Signed: Oliver Infante MD at 20:18 EDT , Service support , CC: Aquiles Rosado MD; Sanjeev Farrell [employer]: Signed CBC W/DIFF, AUTOMATED Collected: 02/01/2018 Status: F Source: GALI 7:10 PM [facility] REPOSITORY TYPE CODE TESTS RESULT OUT OF RANGE REFERENCE UNITS LAB L100.1000 4.4-11.0 K/mm3 Normal WBC 5.4 LAB L100.1200 4.6-6.2 M/mm3 Low RBC 4.55 LAB L100.1300 13.0-16.5 g/dl Normal HGB 14.0 LAB L100.1400 40-54 % Normal HCT 41.2 LAB L100.1500 80-94 fL Normal MCV 90.5 LAB L100.1600 27.0-32.0 pg Normal MCH 30.8 LAB L100.1700 32-36 g/gl Normal MCHC 34.0 LAB L100.1810 11.6-14.6 % Normal RDW CV 13.2 LAB L100.1820 35.1-43.9 fl Normal RDW SD 43.4 LAB L100.1900 150-450 K/mm3 Normal PLT 230 LAB L100.2000 6.2-12.0 fl Normal MPV 9.4 LAB L100.2100 47-70 % Normal NEUT% 52.4 LAB L100.2200 19-41 % Normal LY% 30.8 LAB L100.2300 0-10 % High MONO% 11.4 LAB L100.2400 0-5 % Normal EO% 3.0 LAB L100.2500 0-1 % High BASO% 2.4 LAB L100.2550 0.0-0.9 % Normal IM GRAN % 0.000 Result Comment: IG% - Immature Granulocytes (promyelocytes, myelocytes and metamyelocytes) > 1% indicates that a LEFT SHIFT is Present. LAB L100.2620 2.0-7.7 X10 3/uL Normal Absolute Neut 2.8 LAB L100.2720 0.83-4.51 X10 3/ul Normal Absolute Lymph 1.67 Performed By: #### L100.0100 #### [facility] [address] [place], [place], [id number] BASIC METABOLIC Collected: 02/01/2018 Status: F Source: CONGRESS PROFILE (BMP) 7:10 PM [facility] REPOSITORY TYPE CODE TESTS RESULT OUT OF RANGE REFERENCE UNITS LAB L501.0100 74-106 mg/dL Normal GLU 83 Result Comment: Please note revised GLUCOSE reference range effective 2017. LAB L501.1000 7-18 mg/dL Normal BUN 15 LAB L501.1100 0.70-1.30 mg/dL Normal CREAT,SERUM 0.85 Result Comment: The validity of the calculated GFR AND GFRAA in patients over 70 years has not been determined. Clinical correlation is essential. LAB L501.1110 >60 mL/min Normal EST GFR 96 Result Comment: Non- GFR Calc LAB L501.1115 >60 mL/min Normal EST GFR - AA 117 Result Comment: GFR Calc LAB L501.1255 ml/min Normal Estimated CRCL 97.92 LAB L501.1300 10-20 RATIO Normal BUN/CRE 17.7 LAB L501.2200 8.5-10 mg/dL Normal .1 CA 8.9 LAB L501.5300 136-14 mmol/L Normal 5 NA 140 LAB L501.5600 3.5-5. mmol/L Normal 1 K 4.0 LAB L501.5900 98-107 mmol/L High CL 108 LAB L501.6100 21.0-3 mmol/L Normal 2.0 CO2 25.0 LAB L501.6200 5-15 Normal GAP 7 Performed By: #### L500.2500, L501.4010 #### [facility] [address], [address] TROPONIN-I Collected: 02/01/2018 Status: F Source: CONGRESS 7:10 PM [facility] REPOSITORY TYPE CODE TESTS RESULT OUT OF RANGE REFERENCE UNITS LAB L501.4010 <0.045 ng/mL Normal < 0.015 TROPONIN-I Result Comment: TROPONIN-I EXPECTED VALUES <0.045 Negative 0.045 - 0.590 Consistent with Cardiac Damage > OR = 0.600 Critical Value Not every elevated troponin is indicative of WI. These values should be used with clinical judgement in examining the patient's clinical picture for diagnosis. To establish a diagnosis of WI versus myocardial injury, there must be a demonstrated rise and/or fall in the troponin values, in addition to ischemic symptoms, EKG changes, new regional wall motion abnormality, and/or angiographical evidence. PLEASE NOTE: REFERENCE RANGES EDITED 17 Performed By: #### L500.2500, L501.4010 #### [facility] [address]. [place], [place], [address] PROTHROMBIN TIME W/INR Collected: 02/01/2018 Status: F Source: CONGRESS 7:10 PM [facility] REPOSITORY TYPE CODE TESTS RESULT OUT OF RANGE REFERENCE UNITS LAB L300.4150 11.7-14.9 SECONDS Normal PROTIME 12.5 LAB L300.4200 Normal INR 0.9 Performed By: #### L300.3900, L300.4310 #### [facility] [address]. [place], [place], [address] PARTIAL THROMBOPLAST Collected: 02/01/2018 Status: F Source: CONGRESS TIME 7:10 PM [facility] REPOSITORY TYPE CODE TESTS RESULT OUT OF RANGE REFERENCE UNITS LAB L300.4310 24.1-36.2 Seconds Normal PTT 29.1 Performed By: #### L300.3900, L300.4310 #### [facility] [address], [address] Observed: 01/10/2018 Status: F Source: VASHON URINE CULTURE 12:51 PM [facility] REPOSITORY Sp. Request/Comment: - Specimen received in preservative Culture Result - No growth (<1,000 CFU/ml) Performed By: #### URCUL #### [facility] [address] [place], [place] [address] PROCEDURE Observed: 01/10/2018 Status: COMPLETED Source: VASHON 12:22 PM [facility] REPOSITORY HNO ID: [id number] Author: Twyla Alejandra Service: (none) Author Type: Physician Type: Procedures Filed: 01/10/2018 5:18 PM Note Text: CYSTOSCOPY PROCEDURE ? Epic?notes reviewed: ? Interval history: Pt with h/o PVP 10 yrs ago, now with recurrent LUTS, still bothersome with meds. ? Informed consent obtained Operation: Cystoscopy Anatomic Site: Bladder, Laterality: N/A Urethra, Laterality: Not applicable Prostate, Laterality: N/A Approach: endoscopic Device: None Qualifier: None ? TECHNIQUE: The procedure was fully explained to the patient, risks were reviewed. The patient was placed in the supine position. The genitalia were prepped with betadine, and the urethra was anesthetized with viscous 2% lidocaine. The flexible cystoscope was introduced into the urethra and advanced under direct vision with findings as outlined below. At the conclusion of the procedure, the cystoscope was withdrawn. Antibiotics: ciprofloxacin 500mg Anesthetics given: 10 cc 2% Lidocaine-Urethral and Administered by nurse - see Pre-Procedure Nurse's Notes. Operative Findings Urethra: Normal, no significant strictures Prostate: S/p PVP, unable to see veru. Bilobar regrowth of prostatic tissues, left > right Prostate ~ 40 gms. Bladder: no stones, no tumors, no lesions, bilateral UOs orthotopic Radiologic Studies Urogram: N/A Complications: None Recommendations: Discussed findings with patient Comments: see clinic note Post Procedure Evaluation Condition Post Procedure: satisfactory Post Procedure Medications: none CNOV Observed: 01/10/2018 Status: COMPLETED Source: VASHON 11:00 AM [facility] REPOSITORY Office Visit (UROLBE) LILIYA ENCINAS ([id number]) 1950 M Date Time Provider Department 01/10/18 11:00 AM TWYLA ALEJANDRA UROREGINALD During your visit today, we recorded the following information about you: Pulse Blood pressure Weight Height 59/minute 121/77 91.3 kg 1.854 m Twyla Alejandra MD 01/10/2018 5:18 PM Signed [facility] Urology Clinic Follow Up Date: 01/09/2018 Attending: Twyla Alejandra MD Diagnosis: LUTS/BPH CC/ID: Liliya Encinas is a 67 yr old male with a h/o PVP for BPH in 10/[address] Rodríguez. Preop prostate was 46cc by TRUS and UDS showed PdetQmax of 97 cmH2O, Qmax of 6 ml/sec, and no DO. He had good flow with low PVR postop. He was recently restarted on flomax for nocturia. His symptoms have gradually been getting worses and are similar to what he had prior to the PVP. Uroflow at last visit showed Qmax of 18ml/sec, VV 679cc, PVR 47 mL, and mild prolonged straining pattern. AUASS 25, LYNNE 14.His PSAs have been within normal range and he has never required a biopsy. He recently had spine surgery. He has 2 cardiac stents, last 3 years ago. He is on aspirin and fish oil. Prostate on DAYAMI was ~ 40 gm. Interval Hx: Pt continues to be frustrated by nocturia. He also has some frequency and weak stream only slightly aided by flomax. Cysto today with bilateral regrowth of prostatic tissue, L>R. No median lobe. No significant strictures. The patient denies any new medical problems, surgeries, medications or changes to their social and family history since their last visit. Review of Systems: CONSTITUTIONAL: no recent illnesses, normal energy levels, no pain EYES: no recent visual changes, no acute loss of vision, no bleeding EARS/NOSE/THROAT: no bleeding, no discharge, no difficulty swallowing CARDIOVASCULAR: no dependent edema, no chest pain, no blue or cold limbs RESPIRATORY: no wheeze, no orthopnea, no dyspnea at rest, no dyspnea on exertion GASTROINTESTINAL: no constipation, no diarrhea, no bloody stool GENITOURINARY: see history of present illness MUSCULOSKELETAL: no joint swelling, no joint pain, no loss of mobility NEUROLOGIC: no stroke symptoms, no loss of function, no loss of sensation PSYCHIATRIC: no feelings of depression, no feelings of anxiety, normal mood SKIN: no persistent rashes, no predisposition to infection, no poor wound healing HEMATOLOGIC: no easy bruising, no easy bleeding, no clotting predisposition Exam: BP 121/77 Pulse (!) 59 Ht 185.4 cm (6' 1) Wt 91.3 kg (201 lb 3.2 oz) BMI 26.55 kg/m? General Appearance: No acute distress Eyes: EOMI, PERRLA and Sclera Anicteric ENT: Oropharynx Clear Neck: No lymphadenopathy Lungs: Normal Symmetry and Expansion Extremities: No edema, No clubbing, No cyanosis, Palpable pulses Neuro: Alert and Oriented x 3 Psychiatric: Normal Affect and Mentation Skin: Warm, Dry and Clear Musculoskeletal: PEREZ Labs: Hemoglobin (g/dL) Date Value 08/11/2017 12.0 Hematocrit (%) Date Value 08/11/2017 35.7 WBC (k/uL) Date Value 08/11/2017 6.32 Platelet Count (k/uL) Date Value 08/11/2017 172 Lab Results Component Value Date PSA 0.49 11/24/2016 PSA 0.46 09/16/2016 PSA 0.37 03/26/2015 PSA 0.43 12/22/2013 PSA 0.40 05/19/2013 PSA 0.52 12/09/2011 URINE POC GLUCOSE UA (POCT) Negative 01/10/2018 BILIRUBIN UA (POCT) Negative 01/10/2018 KETONE UA (POCT) Negative 01/10/2018 SPECIFIC GRAVITY UA (POCT) 1.010 01/10/2018 HEMOGLOBIN/BLOOD UA (POCT) Negative 01/10/2018 PH UA (POCT) 6.5 01/10/2018 PROTEIN UA (POCT) Negative 01/10/2018 UROBILINOGEN UA (POCT) 0.2 01/10/2018 NITRITE UA (POCT) Negative 01/10/2018 LEUKOCYTES UA (POCT) Negative 01/10/2018 COLOR UA (POCT) Yellow 01/10/2018 CLARITY UA (POCT) Clear 01/10/2018 Assessment/Recommendation: 67 M with recurrent BPH/LUTS 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 Prostate ~ 40 gm and no strictures on cysto. Pt's main complaint is nocturia with some urgency in the day. Offered trial of anticholinergic especially given good flow rate and PVR on uroflow at last visit. Pt would like to try this - oxybutynin 5 mg Plan for TURP/TUVP at [facility]. He will check with his about scheduling date and then call us back. -trial of oxybutynin 5 mg QHS, SE reviewed -IMPA[facility]/PACE -UCX, labs, type and screen at [facility] -plan for TUVP/TURP -pt to call regarding scheduling date Time spent with patient: Physician [id number] time was approximately 30 minutes with >50% devoted to counseling or coordination of care for above diagnoses. The impression as well as the plan, as outlined, were extensively discussed with the patient who voiced understanding. All questions were answered to their stated satisfaction. Twyla Alejandra MD 10:17 PM 01/09/2018 Urology Mirella Dobson MA 01/10/2018 11:33 AM Signed PRE CYSTO PROCEDURE ID Verified by: Mirella Dobson MA Procedure Indication:Cystoscopy Latex Allergy: No Betadine Allergy: No Lidocaine allergy: No Allergies reviewed and updated. Pre-Procedure Vital Signs: Blood pressure 121/77, pulse (!) 59, height 185.4 cm (6' 1), weight 91.3 kg (201 lb 3.2 oz). Heart valve replacement:No Joint replacement: No Pre-Procedure Antibiotics: None Patient Prep: Betadine Scrub to perineum and placement of Sterile Drape. Anesthetic Given: 10 cc 2% Lidocaine jelly Mirella Alejandra MD 01/10/2018 5:18 PM Signed CYSTOSCOPY PROCEDURE ? Epic?notes reviewed: ? Interval history: Pt with h/o PVP 10 yrs ago, now with recurrent LUTS, still bothersome with meds. ? Informed consent obtained Operation: Cystoscopy Anatomic Site: Bladder, Laterality: N/A Urethra, Laterality: Not applicable Prostate, Laterality: N/A Approach: endoscopic Device: None Qualifier: None ? TECHNIQUE: The procedure was fully explained to the patient, risks were reviewed. The patient was placed in the supine position. The genitalia were prepped with betadine, and the urethra was anesthetized with viscous 2% lidocaine. The flexible cystoscope was introduced into the urethra and advanced under direct vision with findings as outlined below. At the conclusion of the procedure, the cystoscope was withdrawn. Antibiotics: ciprofloxacin 500mg Anesthetics given: 10 cc 2% Lidocaine-Urethral and Administered by nurse - see Pre-Procedure Nurse's Notes. Operative Findings Urethra: Normal, no significant strictures Prostate: S/p PVP, unable to see veru. Bilobar regrowth of prostatic tissues, left > right Prostate ~ 40 gms. Bladder: no stones, no tumors, no lesions, bilateral UOs orthotopic Radiologic Studies Urogram: N/A Complications: None Recommendations: Discussed findings with patient Comments: see clinic note Post Procedure Evaluation Condition Post Procedure: satisfactory Post Procedure Medications: none Mirella Dobson MA 01/10/2018 12:36 PM Signed NURSE POST PROCEDURE ASSESSMENT Level of Consciousness: Alert and Oriented Transferred: via Ambulation Post Procedure Vital Signs: Not indicated Specimens obtained: None Post Procedure: Cystoscopy Discharge Notes: Patient returns to pre-procedure mental status. Patient alert and oriented on discharge. Discharge Pain level: 0 on a scale of 0-10. THE FOLLOWING WAS EVALUATED Motivation To Learn: Interested Family/Significant Other Support: High : Family not present. Cognitive Ability: Alert and oriented Patient Learns Best By:Individual Instruction and Written Material The Following Influencing Factors Were Barriers To This Education Session: Zoroastrianism Factors: No barriers The Following Physical Limitations Were Barriers To This Education Session: None Instruction Provided To: Patient Patient Evaluation:Verbalizes understanding Follow Up Plan: follow up as directed Supplemental Material Given:Written Material Ciprofloxacin 500 mg given prior to procedure Mirella Aleajndra MD 01/10/2018 12:54 PM Addendum Please let us know when you would like to proceed with surgery. Please call [phone]. Referring Provider: SELF [[id number]] Allergies As of Date: 01/10/2018 (No Known Allergies) Date Reviewed: 01/10/2018 Reviewed by: Twyla Alejandra - Fully Assessed Reason for Visit: Cystoscopy-1 [303] Primary Visit Diagnosis:Benign prostatic hyperplasia with urinary obstruction [N40.1, N13.8] Other Visit Diagnosis:Nocturia [R35.1] Order(s):UA DIP, URINE (POC) [0031263] Order #: [id number]. #:[id number] [] ciprofloxacin HCl 500 mg tab(s) (CIPRO)Disp: Rfl: [] lidocaine urojet 2 % 10 mL topical gel (XYLOCAINE, GLYDO)Disp: Rfl: oxybutynin (DITROPAN) 5 mg tabletTake 1 tablet by mouth daily at bedtime.Disp: 30 tabletRfl: 2 URINE CULTURE [[facility]] Order #: [id number] Prescriptions as of 01/10/2018 Sig: TRAZODONE 50 MG TABLET Take 1 tablet by mouth daily * Patient taking differently: Take 50 mg by mouth daily at * TRIAMCINOLONE ACETONIDE 0.5 %* Apply 1 application to affect* TAMSULOSIN 0.4 MG CAPSULE Take 1 capsule by mouth once * EZETIMIBE 10 MG TABLET Take 1 tablet by mouth once d* ASPIRIN 81 MG TABLET,DELAYED * Take 1 tablet by mouth once d* OTC NUTRITIONAL SUPPLEMENT Take 1 capsule by mouth once * OTC NUTRITIONAL SUPPLEMENT Take 2 capsules by mouth valentin* OTC NUTRITIONAL SUPPLEMENT Take 1 capsule by mouth daily* OTC NUTRITIONAL SUPPLEMENT Take 3 capsules by mouth valentin* OTC NUTRITIONAL SUPPLEMENT Take 3 capsules daily. OTC NUTRITIONAL SUPPLEMENT Take 1 capsule by mouth daily* OTC NUTRITIONAL SUPPLEMENT Take 3-5 drops daily, with me* OXYBUTYNIN CHLORIDE 5 MG TABL* Take 1 tablet by mouth daily * DULOXETINE 30 MG CAPSULE,DAMION* Take 30 mg by mouth once valentin* GABAPENTIN 300 MG CAPSULE Take 600 mg by mouth daily at* Problem List As Of Date 01/10/2018 Noted Resolved PERS HX TOBACCO USE [Z87.891] INVALID FOR* Abdominal pain, epigastric [R10.13] INVALID FOR*02/18/2010 Attention deficit disorder with hyperactivity [*INVALID FOR* NOCTURIA [R35.1] INVALID FOR* Pain in soft tissues of limb [M79.609] INVALID FOR*02/18/2010 Empyema without mention of fistula [J86.9] INVALID FOR*03/31/2017 Pain in joint, shoulder region [M25.519] INVALID FOR*04/06/2017 Esophagitis, unspecified [K20.9] INVALID FOR*04/06/2017 Acute gastritis without mention of hemorrhage [*INVALID FOR*03/31/2017 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 Tear of medial cartilage or meniscus of knee, c*INVALID FOR*04/06/2017 Lumbar radiculopathy [M54.16] INVALID FOR* ED (erectile dysfunction) [N52.9] INVALID FOR* Low testosterone [E34.9] INVALID FOR*03/31/2017 Benign neoplasm of colon [D12.6] INVALID FOR*03/31/2017 SUMMARY [V999.95] INVALID FOR* More... Unstable angina [I20.0] INVALID FOR*07/12/2012 Priority: A More... Hyperlipidemia [E78.5] INVALID FOR* Priority: C More... Sinus infection [J32.9] INVALID FOR*12/12/2011 More... Need for prophylactic measure [Z29.9] INVALID FOR*03/31/2017 More... Tubular adenoma of colon [D12.6] INVALID FOR* Presence of drug coated stent in posterior desc*INVALID FOR* ASCVD (arteriosclerotic cardiovascular disease)*INVALID FOR*03/31/2017 ASHD (arteriosclerotic heart disease) [I25.10] INVALID FOR* Right carpal tunnel syndrome [G56.01] INVALID FOR*04/06/2017 CAD (coronary artery disease) [I25.10] INVALID FOR* Priority: E More... Hypertension [I10] INVALID FOR* Diarrhea [R19.7] INVALID FOR*03/31/2017 More... Non-ST elevation myocardial infarction (NSTEMI)*INVALID FOR* More... Presence of drug coated stent in left circumfle*INVALID FOR* Lumbar foraminal stenosis [M99.83] INVALID FOR*03/31/2017 Lumbar spondylosis [M47.816] INVALID FOR* Priority: A Neural foraminal stenosis of lumbar spine [M99.*INVALID FOR* Priority: A More... Right lumbar radiculopathy [M54.16] INVALID FOR* Priority: C Status post insertion of drug-eluting stent int*INVALID FOR* Anxiety [F41.9] INVALID FOR* Thoracic or lumbosacral neuritis or radiculitis*INVALID FOR*04/06/2017 Lumbosacral spondylosis without myelopathy [M47*INVALID FOR* Hypertriglyceridemia [E78.1] INVALID FOR*03/31/2017 Rotator cuff syndrome of right shoulder [M75.10*INVALID FOR*04/06/2017 Family history of ischemic heart disease [Z82.4*INVALID FOR* Multiple vessel coronary artery disease [I25.10]INVALID FOR*03/31/2017 Statin intolerance [Z78.9] INVALID FOR* Hypogonadism in male [E29.1] Lumbar stenosis [M48.061] INVALID FOR* 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) [E72.12]INVALID FOR* 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 Cervical radiculopathy [M54.12] INVALID FOR* S/P cervical disc replacement [Z98.890] INVALID FOR* Priority: C Acute postoperative pain [G89.18] INVALID FOR* Priority: D More... Benign prostatic hyperplasia with urinary obstr*INVALID FOR* Other instructions from your clinician: Please let us know when you would like to proceed with surgery. Please call [phone]. Visit Notes: >> Mirella Dobson MA WedJan 10, 2018 11:32 AM Status: Signed PRE CYSTO PROCEDURE ID Verified by: Mirella Dobson MA Procedure Indication:Cystoscopy Latex Allergy: No Betadine Allergy: No Lidocaine allergy: No Allergies reviewed and updated. Pre-Procedure Vital Signs: Blood pressure 121/77, pulse (!) 59, height 185.4 cm (6' 1), weight 91.3 kg (201 lb 3.2 oz). Heart valve replacement:No Joint replacement: No Pre-Procedure Antibiotics: None Patient Prep: Betadine Scrub to perineum and placement of Sterile Drape. Anesthetic Given: 10 cc 2% Lidocaine jelly Mirella Dobson MA >> Mirella Dobson MA WedJan 10, 2018 12:35 PM Status: Signed NURSE POST PROCEDURE ASSESSMENT Level of Consciousness: Alert and Oriented Transferred: via Ambulation Post Procedure Vital Signs: Not indicated Specimens obtained: None Post Procedure: Cystoscopy Discharge Notes: Patient returns to pre-procedure mental status. Patient alert and oriented on discharge. Discharge Pain level: 0 on a scale of 0-10. THE FOLLOWING WAS EVALUATED Motivation To Learn: Interested Family/Significant Other Support: High : Family not present. Cognitive Ability: Alert and oriented Patient Learns Best By:Individual Instruction and Written Material The Following Influencing Factors Were Barriers To This Education Session: Zoroastrianism Factors: No barriers The Following Physical Limitations Were Barriers To This Education Session: None Instruction Provided To: Patient Patient Evaluation:Verbalizes understanding Follow Up Plan: follow up as directed Supplemental Material Given:Written Material Ciprofloxacin 500 mg given prior to procedure Mirella Dobson MA Prescriptions ordered this encounter Disp Refills Start End CIPROFLOXACIN 500 MG TABLET 01/10/2018 01/10/2018 Route: ORAL LIDOCAINE 2 % MUCOSAL JELLY IN APPLI* 01/10/2018 01/10/2018 Route: URETHRAL OXYBUTYNIN CHLORIDE 5 MG TABLET 30 t* 2 01/10/2018 04/10/2018 Route: ORAL Sig: Take 1 tablet by mouth daily at bedtime. Disposition: Return for will schedule for surgery. Follow-up and Disposition History Recorded Encounter Status:Closed by TWYLA ALEJANDRA on 01/10/18 PROGRESS Observed: 01/09/2018 Status: COMPLETED Source: [place] 10:15 PM [facility] REPOSITORY O ID: [id number] Author: Twyla Alejandra Service: (none) Author Type: Physician Type: Progress Notes Filed: 01/10/2018 5:18 PM Note Text: [facility] Urology Clinic Follow Up Date: 01/09/2018 Attending: Twyla Alejandra MD Diagnosis: LUTS/BPH CC/ID: Liliya Encinas is a 67 yr old male with a h/o PVP for BPH in 10/[address] Rodríguez. Preop prostate was 46cc by TRUS and UDS showed PdetQmax of 97 cmH2O, Qmax of 6 ml/sec, and no DO. He had good flow with low PVR postop. He was recently restarted on flomax for nocturia. His symptoms have gradually been getting worses and are similar to what he had prior to the PVP. Uroflow at last visit showed Qmax of 18ml/sec, VV 679cc, PVR 47 mL, and mild prolonged straining pattern. AUASS 25, LYNNE 14.His PSAs have been within normal range and he has never required a biopsy. He recently had spine surgery. He has 2 cardiac stents, last 3 years ago. He is on aspirin and fish oil. Prostate on DAYAMI was ~ 40 gm. Interval Hx: Pt continues to be frustrated by nocturia. He also has some frequency and weak stream only slightly aided by flomax. Cysto today with bilateral regrowth of prostatic tissue, L>R. No median lobe. No significant strictures. The patient denies any new medical problems, surgeries, medications or changes to their social and family history since their last visit. Review of Systems: CONSTITUTIONAL: no recent illnesses, normal energy levels, no pain EYES: no recent visual changes, no acute loss of vision, no bleeding EARS/NOSE/THROAT: no bleeding, no discharge, no difficulty swallowing CARDIOVASCULAR: no dependent edema, no chest pain, no blue or cold limbs RESPIRATORY: no wheeze, no orthopnea, no dyspnea at rest, no dyspnea on exertion GASTROINTESTINAL: no constipation, no diarrhea, no bloody stool GENITOURINARY: see history of present illness MUSCULOSKELETAL: no joint swelling, no joint pain, no loss of mobility NEUROLOGIC: no stroke symptoms, no loss of function, no loss of sensation PSYCHIATRIC: no feelings of depression, no feelings of anxiety, normal mood SKIN: no persistent rashes, no predisposition to infection, no poor wound healing HEMATOLOGIC: no easy bruising, no easy bleeding, no clotting predisposition Exam: BP 121/77 Pulse (!) 59 Ht 185.4 cm (6' 1) Wt 91.3 kg (201 lb 3.2 oz) BMI 26.55 kg/m? General Appearance: No acute distress Eyes: EOMI, PERRLA and Sclera Anicteric ENT: Oropharynx Clear Neck: No lymphadenopathy Lungs: Normal Symmetry and Expansion Extremities: No edema, No clubbing, No cyanosis, Palpable pulses Neuro: Alert and Oriented x 3 Psychiatric: Normal Affect and Mentation Skin: Warm, Dry and Clear Musculoskeletal: PEREZ Labs: Hemoglobin (g/dL) Date Value 08/11/2017 12.0 Hematocrit (%) Date Value 08/11/2017 35.7 WBC (k/uL) Date Value 08/11/2017 6.32 Platelet Count (k/uL) Date Value 08/11/2017 172 Lab Results Component Value Date PSA 0.49 11/24/2016 PSA 0.46 09/16/2016 PSA 0.37 03/26/2015 PSA 0.43 12/22/2013 PSA 0.40 05/19/2013 PSA 0.52 12/09/2011 URINE POC GLUCOSE UA (POCT) Negative 01/10/2018 BILIRUBIN UA (POCT) Negative 01/10/2018 KETONE UA (POCT) Negative 01/10/2018 SPECIFIC GRAVITY UA (POCT) 1.010 01/10/2018 HEMOGLOBIN/BLOOD UA (POCT) Negative 01/10/2018 PH UA (POCT) 6.5 01/10/2018 PROTEIN UA (POCT) Negative 01/10/2018 UROBILINOGEN UA (POCT) 0.2 01/10/2018 NITRITE UA (POCT) Negative 01/10/2018 LEUKOCYTES UA (POCT) Negative 01/10/2018 COLOR UA (POCT) Yellow 01/10/2018 CLARITY UA (POCT) Clear 01/10/2018 Assessment/Recommendation: 67 M with recurrent BPH/LUTS 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 Prostate ~ 40 gm and no strictures on cysto. Pt's main complaint is nocturia with some urgency in the day. Offered trial of anticholinergic especially given good flow rate and PVR on uroflow at last visit. Pt would like to try this - oxybutynin 5 mg Plan for TURP/TUVP at [facility]. He will check with his about scheduling date and then call us back. -trial of oxybutynin 5 mg QHS, SE reviewed -IMPACT/PACE -UCX, labs, type and screen at [facility] -plan for TUVP/TURP -pt to call regarding scheduling date Time spent with patient: Physician [id number] time was approximately 30 minutes with >50% devoted to counseling or coordination of care for above diagnoses. The impression as well as the plan, as outlined, were extensively discussed with the patient who voiced understanding. All questions were answered to their stated satisfaction. Twyla Alejandra MD 10:17 PM 01/09/2018 Urology CNOV Observed: 12/27/2017 Status: COMPLETED Source: [place] 9:00 AM [facility] REPOSITORY Office Visit (UROLBE) LILIYA ENCINAS ([id number]) 1950 M Date Time Provider Department 12/27/17 9:00 AM TWYLA ALEJANDRA During your visit today, we recorded the following information about you: Pulse Blood pressure Weight Height 66/minute 122/77 89 kg 1.854 m Twyla Alejandra MD 12/28/2017 5:44 PM Signed Urology New Patient History and Physical Date: 12/26/2017 Attending: Twyla Alejandra MD Referring physician: SELF Chief Complaint: BPH/LUTS ID: Liliya Encinas is a 67 year old male patient who we are seeing in consultation for LUTS. HPI: The pt is a 67 yr old male with a h/o PVP for BPH in 10/[address] Rodríguez. Preop prostate was 46cc by TRUS and UDS showed PdetQmax of 97 cmH2O, Qmax of 6 ml/sec, and no DO. He had good flow with low PVR postop. He was recently restarted on flomax for nocturia. His symptoms have gradually been getting worses and are similar to what he had prior to the PVP. Uroflow today shows Qmax of 18ml/sec, VV 679cc, PVR 47 mL, and mild prolonged straining pattern. His PSAs have been within normal range and he has never required a biopsy. He recently had spine surgery. His symptoms while on flomax are as follows: Stream: better with flomax Straining: no Intermittency: yes Hesitancy: yes Incomplete emptying: yes Double voiding: yes DTF: Q2hrs (drinks lots of water) NTF: 2-3x - no better with flomax Urgency: sometimes UUI: no Dysuria: no Gross hematuria: no UTI: no AUR: no (only had planned catheter after spine surgery) AUASS: 25 LYNNE:14 He has DDD and has had several spine surgeries - cervical and lumbar - over the last 7 years. He has 2 cardiac stents, last 3 years ago. He is on aspirin and fish oil. Past Medical History: PAST MEDICAL HISTORY Diagnosis Date - Acute gastritis without mention of hemorrhage - ADHD (attention deficit hyperactivity disorder) on Lexapro - ASHD (arteriosclerotic heart disease) 04/05/2012 stent x2, Dr. 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 Riley - Testicular lesion right, s/p removal - Vitamin D insufficiency Past Surgical History: PAST SURGICAL HISTORY Procedure Laterality Date - CC PCI CORONARY INTERVENT 03/2013 X2 - COLONOSCOP W/ OR W/O [facility] SPEC TA and hyperplastic polyps removed. - COLONOSCOP W/ OR W/O BRS SPEC 04/13/2017 Colonoscopy - Poor prep - 5 year follow up - COLONOSCOPY W/BX 09/11/11 repeat 5 years - EGD W/O [facility] SPECIMEN W/BX 08/26/07 - HEART SURGERY HX - PAST SURGICAL HISTORY OF removal of right testicle for pre cancer - PAST SURGICAL HISTORY OF 07/26/2006 right lung scrapping and cleaning for impiemia - PAST SURGICAL HISTORY OF remote sinus surgery - PAST SURGICAL HISTORY OF 03/22/2009 microdiscectomy- lumbar - PAST SURGICAL HISTORY OF 05/2009 cerebral meningioma - PAST SURGICAL HISTORY OF 07/2010 Micro discectomy low back - PAST SURGICAL HISTORY OF 07/2013 lumbar discectomy - PAST SURGICAL HISTORY OF Left 04/2015 ankle microfracture, fusion of forefoot - PAST SURGICAL HISTORY OF 2016 L3-L5 revision posterior decompression with TLIF - PAST SURGICAL HISTORY OF 2018 2 level cervical disc replacement - REPAIR ING HERNIA,5+Y/O,REDUCIBL right Hernia repair, inguinal - REVISE MEDIAN N/CARPAL TUNNEL SURG left Carpal tunnel decomp - REVISE MEDIAN N/CARPAL TUNNEL SURG Right 12/02/2016 Right carpal tunnel release - TRANSURETHRAL ELEC-SURG PROSTATECTOM 09/2007 - VASECTOMY Allergies: ALLERGIES No Known Allergies Medications: Current Outpatient Prescriptions: DULoxetine (CYMBALTA) 30 mg capsule Take 30 mg by mouth once daily. Disp: Rfl: tamsulosin ER (FLOMAX) 0.4 mg cp24 Take 1 capsule by mouth once daily. Disp: 30 capsule Rfl: 11 ezetimibe (ZETIA) 10 mg tablet Take 1 tablet by mouth once daily. Disp: 30 tablet Rfl: 5 aspirin, enteric coated (ADULT LOW DOSE ASPIRIN) 81 mg EC tablet Take 1 tablet by mouth once daily. Disp: Rfl: The Whole Probiotic ([employer]) Take 1 capsule by mouth once daily. Treatment 3-6 months Disp: Rfl: 0 Homocysteine [place] ([employer]) Take 2 capsules by mouth daily with food. Disp: Rfl: 0 B-Complex Plus (Pure Encapsulations) Take 1 capsule by mouth daily with food. Disp: Rfl: 0 [employer] Multivitamin (Pure Encapsulations) Take 1 capsule by mouth daily with food. 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 ([employer]) Stress, blood sugar, thyroid/hormones/adrenals/sleep/energy/anxiety Take 1 in AM and 1 before bed (Patient not taking: Reported on 12/22/2017 ) Disp: Rfl: [address] (Pure Encapsulations) liver/detox support Take 3 capsules daily, in divided doses, between meals. (Patient not taking: Reported on 12/22/2017 ) Disp: Rfl: 0 gabapentin (NEURONTIN) 300 mg capsule Take 600 mg by mouth daily at bedtime. Disp: Rfl: escitalopram oxalate (LEXAPRO) 10 mg tablet take 1 tablet by mouth once daily (Patient not taking: Reported on 12/22/2017) Disp: 30 tablet Rfl: 12 ONE [place] (Pure Encapsulation) Take 3 capsules by mouth daily with food. Disp: Rfl: 0 Magnesium Citrate 150mg 90 ct. (Pure Encapsulations) Take 3 capsules daily. Disp: Rfl: 0 No current facility-administered medications for this visit. Family History: FAMILY HISTORY Problem Relation Age of Onset - None Mother - Heart Father 80 stents x 2 - Arthritis Father GMa had bladder cancer Social History: Social History Occupational History [employer] Social History Main Topics Smoking status: Former Smoker 1.00 Packs/day For 10.00 Years Types: Cigarettes Quit date: 05/03/1977 Smokeless tobacco: Never Used Alcohol use Yes 7.5 oz/week 5 Glasses of Wine (5oz) per week Drug use: No Sexual activity: Not on file Review of Systems: A 12 point review of systems was completed with the patient. Pertinent positives and negatives are included above and here: nasal problems Exam: BP 122/77 Pulse 66 Ht 185.4 cm (6' 1) Wt 89 kg (196 lb 3.2 oz) BMI 25.89 kg/m? General Appearance: No acute distress Eyes: EOMI, PERRLA and Sclera Anicteric ENT: Oropharynx Clear Neck: Supple, No JVD and No lymphadenopathy Lungs: Clear Auscultation and Normal Symmetry and Expansion Cardiac: Regular rate and rhythm, Normal S1, S2 and No rubs, murmurs or gallops Abdomen: Soft, Nontender, Nondistended Rectal: nml rectal tone, prostate ~40 gm, smooth with no nodules : penis nml with no lesions, left testicle descended with no palpable masses Extremities: No edema, No clubbing, No cyanosis, Palpable pulses Neuro: Alert and Oriented x 3 Psychiatric: Normal Affect and Mentation Skin: Warm, Dry and Clear Musculoskeletal: PEREZ Labs: Creatinine Date Value Ref Range Status 08/11/2017 0.91 0.73 - 1.22 mg/dL Final 07/20/2017 0.85 0.73 - 1.22 mg/dL Final 11/24/2016 0.89 0.73 - 1.22 mg/dL Final 10/10/2016 0.84 0.73 - 1.22 mg/dL Final Hemoglobin (g/dL) Date Value 08/11/2017 12.0 Hematocrit (%) Date Value 08/11/2017 35.7 WBC (k/uL) Date Value 08/11/2017 6.32 Platelet Count (k/uL) Date Value 08/11/2017 172 Lab Results Component Value Date PSA 0.49 11/24/2016 PSA 0.46 09/16/2016 PSA 0.37 03/26/2015 PSA 0.43 12/22/2013 PSA 0.40 05/19/2013 PSA 0.52 12/09/2011 UA: GLUCOSE UA (POCT) Negative 12/27/2017 BILIRUBIN UA (POCT) Negative 12/27/2017 KETONE UA (POCT) Negative 12/27/2017 SPECIFIC GRAVITY UA (POCT) <=1.005 12/27/2017 HEMOGLOBIN/BLOOD UA (POCT) Negative 12/27/2017 PH UA (POCT) 6.0 12/27/2017 PROTEIN UA (POCT) Negative 12/27/2017 UROBILINOGEN UA (POCT) 0.2 12/27/2017 NITRITE UA (POCT) Negative 12/27/2017 LEUKOCYTES UA (POCT) Negative 12/27/2017 COLOR UA (POCT) Yellow 12/27/2017 CLARITY UA (POCT) Clear 12/27/2017 Assessment/Recommendation: 67 M with recurrent LUTS s/p PVP 10 years ago 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 Pt still has reasonable flow and PVR but is quite bothered by his LUTS - main nocturia and obstructive symptoms. He has had minimal relief with meds. He will likely benefit from a deobstructing procedure. Will need to better assess anatomy and prostate size with cystoscopy. Will also r/o stricture. He is able to void a large volume with small residual so do not feel strongly about UDS at this time. Prostate was not very enlarged on DAYAMI so will also hold off on TRUS. Had discussion with patient about possible options including TURP, prostate vaporization, urolift, etc. Will be able to narrow choices down better after cysto. Risks and side effects may be more severe as this will be a reoperation. Also of note, pt has had surgery since his cardiac stents. Will still need clearance and may need to hold aspirin/fish oil depending on what/if surgery is chosen. -schedule for cysto in 2-3 weeks. -obtain UCX at next visit in anticipation of procedure Twyla Alejandra MD 5:34 PM 12/26/2017 Referring Provider: SELF [[id number]] Allergies As of Date: 12/27/2017 (No Known Allergies) Date Reviewed: 12/27/2017 Reviewed by: Amber Green RN - Fully Assessed Reason for Visit: Benign Prostatic Hypertrophy [1144] Primary Visit Diagnosis:Benign prostatic hyperplasia with urinary obstruction [N40.1, N13.8] Order(s):UA DIP, URINE (POC) [[id number]] Order #: [id number] #:[id number] Prescriptions as of 12/27/2017 Sig: DULOXETINE 30 MG CAPSULE,DAMION* Take 30 mg by mouth once valentin* TAMSULOSIN 0.4 MG CAPSULE Take 1 capsule by mouth once * EZETIMIBE 10 MG TABLET Take 1 tablet by mouth once d* ASPIRIN 81 MG TABLET,DELAYED * Take 1 tablet by mouth once d* OTC NUTRITIONAL SUPPLEMENT Take 1 capsule by mouth once * OTC NUTRITIONAL SUPPLEMENT Take 2 capsules by mouth valentin* OTC NUTRITIONAL SUPPLEMENT Take 1 capsule by mouth daily* OTC NUTRITIONAL SUPPLEMENT Take 1 capsule by mouth daily* OTC NUTRITIONAL SUPPLEMENT Take 3-5 drops daily, with me* DOXYCYCLINE HYCLATE 100 MG CA* Take 1 capsule by mouth twice* GABAPENTIN 300 MG CAPSULE Take 600 mg by mouth daily at* OTC NUTRITIONAL SUPPLEMENT Take 3 capsules by mouth valentin* OTC NUTRITIONAL SUPPLEMENT Take 3 capsules daily. Problem List As Of Date 12/27/2017 Noted Resolved PERS HX TOBACCO USE [Z87.891] INVALID FOR* Abdominal pain, epigastric [R10.13] INVALID FOR*02/18/2010 Attention deficit disorder with hyperactivity [*INVALID FOR* NOCTURIA [R35.1] INVALID FOR* Pain in soft tissues of limb [M79.609] INVALID FOR*02/18/2010 Empyema without mention of fistula [J86.9] INVALID FOR*03/31/2017 Pain in joint, shoulder region [M25.519] INVALID FOR*04/06/2017 Esophagitis, unspecified [K20.9] INVALID FOR*04/06/2017 Acute gastritis without mention of hemorrhage [*INVALID FOR*03/31/2017 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 Tear of medial cartilage or meniscus of knee, c*INVALID FOR*04/06/2017 Lumbar radiculopathy [M54.16] INVALID FOR* ED (erectile dysfunction) [N52.9] INVALID FOR* Low testosterone [E34.9] INVALID FOR*03/31/2017 Benign neoplasm of colon [D12.6] INVALID FOR*03/31/2017 SUMMARY [V999.95] INVALID FOR* More... Unstable angina [I20.0] INVALID FOR*07/12/2012 Priority: A More... Hyperlipidemia [E78.5] INVALID FOR* Priority: C More... Sinus infection [J32.9] INVALID FOR*12/12/2011 More... Need for prophylactic measure [Z29.9] INVALID FOR*03/31/2017 More... Tubular adenoma of colon [D12.6] INVALID FOR* Presence of drug coated stent in posterior desc*INVALID FOR* ASCVD (arteriosclerotic cardiovascular disease)*INVALID FOR*03/31/2017 ASHD (arteriosclerotic heart disease) [I25.10] INVALID FOR* Right carpal tunnel syndrome [G56.01] INVALID FOR*04/06/2017 CAD (coronary artery disease) [I25.10] INVALID FOR* Priority: E More... Hypertension [I10] INVALID FOR* Diarrhea [R19.7] INVALID FOR*03/31/2017 More... Non-ST elevation myocardial infarction (NSTEMI)*INVALID FOR* More... Presence of drug coated stent in left circumfle*INVALID FOR* Lumbar foraminal stenosis [M99.83] INVALID FOR*03/31/2017 Lumbar spondylosis [M47.816] INVALID FOR* Priority: A Neural foraminal stenosis of lumbar spine [M99.*INVALID FOR* Priority: A More... 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 Cervical radiculopathy [M54.12] INVALID FOR* S/P cervical disc replacement [Z98.890] INVALID FOR* Priority: C Acute postoperative pain [G89.18] INVALID FOR* Priority: D More... 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 ([employer]* 0 10/14/2017 12/27/2017 Class: OTC Sig: Take 1 in AM and 1 before bed Patient not taking: Reported on 12/22/2017 Disc: Patient chooses alternative therapy HM Chelate 90 ct. (Pure Encapsulatio* 0 10/14/2017 12/27/2017 Class: OTC Sig: Take 3 capsules daily, in divided doses, between meals. Patient not taking: Reported on 12/22/2017 Disc: Discontinued by Patient escitalopram oxalate (LEXAPRO) 10 mg* 30 t* 12 12/21/2016 12/27/2017 Sig: take 1 tablet by mouth once daily Patient not taking: Reported on 12/22/2017 Disc: Discontinued by Patient Disposition: Return in about 2 weeks (around 01/10/2018) for Cystoscopy. Follow-up and Disposition History Recorded Encounter Status:Closed by TWYLA ALEJANDRA on 12/28/17 PROGRESS Observed: 12/26/2017 Status: COMPLETED Source: [place] 5:33 PM [facility] REPOSITORY HNO ID: [id number] Author: Twyla Alejandra Service: (none) Author Type: Physician Type: Progress Notes Filed: 12/28/2017 5:44 PM Note Text: Urology New Patient History and Physical Date: 12/26/2017 Attending: Twyla Alejandra MD Referring physician: SELF Chief Complaint: BPH/LUTS ID: Liliya Encinas is a 67 year old male patient who we are seeing in consultation for LUTS. HPI: The pt is a 67 yr old male with a h/o PVP for BPH in 10/[address] Rodríguez. Preop prostate was 46cc by TRUS and UDS showed PdetQmax of 97 cmH2O, Qmax of 6 ml/sec, and no DO. He had good flow with low PVR postop. He was recently restarted on flomax for nocturia. His symptoms have gradually been getting worses and are similar to what he had prior to the PVP. Uroflow today shows Qmax of 18ml/sec, VV 679cc, PVR 47 mL, and mild prolonged straining pattern. His PSAs have been within normal range and he has never required a biopsy. He recently had spine surgery. His symptoms while on flomax are as follows: Stream: better with flomax Straining: no Intermittency: yes Hesitancy: yes Incomplete emptying: yes Double voiding: yes DTF: Q2hrs (drinks lots of water) NTF: 2-3x - no better with flomax Urgency: sometimes UUI: no Dysuria: no Gross hematuria: no UTI: no AUR: no (only had planned catheter after spine surgery) AUASS: 25 LYNNE:14 He has DDD and has had several spine surgeries - cervical and lumbar - over the last 7 years. He has 2 cardiac stents, last 3 years ago. He is on aspirin and fish oil. Past Medical History: PAST MEDICAL HISTORY Diagnosis Date - Acute gastritis without mention of hemorrhage - ADHD (attention deficit hyperactivity disorder) on Lexapro - ASHD (arteriosclerotic heart disease) 04/05/2012 stent x2, Dr. 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 Riley - Testicular lesion right, s/p removal - Vitamin D insufficiency Past Surgical History: PAST SURGICAL HISTORY Procedure Laterality Date - CC PCI CORONARY INTERVENT 03/2013 X2 - COLONOSCOP W/ OR W/O [facility] SPEC TA and hyperplastic polyps removed. - COLONOSCOP W/ OR W/O [facility] SPEC 04/13/2017 Colonoscopy - Poor prep - 5 year follow up - COLONOSCOPY W/BX 09/11/11 repeat 5 years - EGD W/O [facility] SPECIMEN W/BX 08/26/07 - HEART SURGERY HX - PAST SURGICAL HISTORY OF removal of right testicle for pre cancer - PAST SURGICAL HISTORY OF 07/26/2006 right lung scrapping and cleaning for impiemia - PAST SURGICAL HISTORY OF remote sinus surgery - PAST SURGICAL HISTORY OF 03/22/2009 microdiscectomy- lumbar - PAST SURGICAL HISTORY OF 05/2009 cerebral meningioma - PAST SURGICAL HISTORY OF 07/2010 Micro discectomy low back - PAST SURGICAL HISTORY OF 07/2013 lumbar discectomy - PAST SURGICAL HISTORY OF Left 04/2015 ankle microfracture, fusion of forefoot - PAST SURGICAL HISTORY OF 2017 L3-L5 revision posterior decompression with TLIF - PAST SURGICAL HISTORY OF 2018 2 level cervical disc replacement - REPAIR ING HERNIA,5+Y/O,REDUCIBL right Hernia repair, inguinal - REVISE MEDIAN N/CARPAL TUNNEL SURG left Carpal tunnel decomp - REVISE MEDIAN N/CARPAL TUNNEL SURG Right 12/02/2016 Right carpal tunnel release - TRANSURETHRAL ELEC-SURG PROSTATECTOM 09/2007 - VASECTOMY Allergies: ALLERGIES No Known Allergies Medications: Current Outpatient Prescriptions: DULoxetine (CYMBALTA) 30 mg capsule Take 30 mg by mouth once daily. Disp: Rfl: tamsulosin ER (FLOMAX) 0.4 mg cp24 Take 1 capsule by mouth once daily. Disp: 30 capsule Rfl: 11 ezetimibe (ZETIA) 10 mg tablet Take 1 tablet by mouth once daily. Disp: 30 tablet Rfl: 5 aspirin, enteric coated (ADULT LOW DOSE ASPIRIN) 81 mg EC tablet Take 1 tablet by mouth once daily. Disp: Rfl: The Whole Probiotic ([employer]) Take 1 capsule by mouth once daily. Treatment 3-6 months Disp: Rfl: 0 Homocysteine [place] ([employer]) Take 2 capsules by mouth daily with food. Disp: Rfl: 0 B-Complex Plus (Pure Encapsulations) Take 1 capsule by mouth daily with food. Disp: Rfl: 0 [employer] Multivitamin (Pure Encapsulations) Take 1 capsule by mouth daily with food. 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 ([employer]) Stress, blood sugar, thyroid/hormones/adrenals/sleep/energy/anxiety Take 1 in AM and 1 before bed (Patient not taking: Reported on 12/22/2017 ) Disp: Rfl: 0 HM Chelate 90 [address] (Pure Encapsulations) liver/detox support Take 3 capsules daily, in divided doses, between meals. (Patient not taking: Reported on 12/22/2017 ) Disp: Rfl: 0 gabapentin (NEURONTIN) 300 mg capsule Take 600 mg by mouth daily at bedtime. Disp: Rfl: escitalopram oxalate (LEXAPRO) 10 mg tablet take 1 tablet by mouth once daily (Patient not taking: Reported on 12/22/2017) Disp: 30 tablet Rfl: 12 ONE [place] (Pure Encapsulation) Take 3 capsules by mouth daily with food. Disp: Rfl: 0 Magnesium Citrate 150mg 90 ct. (Pure Encapsulations) Take 3 capsules daily. Disp: Rfl: 0 No current facility-administered medications for this visit. Family History: FAMILY HISTORY Problem Relation Age of Onset - None Mother - Heart Father 80 stents x 2 - Arthritis Father GMa had bladder cancer Social History: Social History Occupational History [employer] Social History Main Topics Smoking status: Former Smoker 1.00 Packs/day For 10.00 Years Types: Cigarettes Quit date: 05/03/1977 Smokeless tobacco: Never Used Alcohol use Yes 7.5 oz/week 5 Glasses of Wine (5oz) per week Drug use: No Sexual activity: Not on file Review of Systems: A 12 point review of systems was completed with the patient. Pertinent positives and negatives are included above and here: nasal problems Exam: BP 122/77 Pulse 66 Ht 185.4 cm (6' 1) Wt 89 kg (196 lb 3.2 oz) BMI 25.89 kg/m? General Appearance: No acute distress Eyes: EOMI, PERRLA and Sclera Anicteric ENT: Oropharynx Clear Neck: Supple, No JVD and No lymphadenopathy Lungs: Clear Auscultation and Normal Symmetry and Expansion Cardiac: Regular rate and rhythm, Normal S1, S2 and No rubs, murmurs or gallops Abdomen: Soft, Nontender, Nondistended Rectal: nml rectal tone, prostate ~40 gm, smooth with no nodules : penis nml with no lesions, left testicle descended with no palpable masses Extremities: No edema, No clubbing, No cyanosis, Palpable pulses Neuro: Alert and Oriented x 3 Psychiatric: Normal Affect and Mentation Skin: Warm, Dry and Clear Musculoskeletal: PEREZ Labs: Creatinine Date Value Ref Range Status 08/11/2017 0.91 0.73 - 1.22 mg/dL Final 07/20/2017 0.85 0.73 - 1.22 mg/dL Final 11/24/2016 0.89 0.73 - 1.22 mg/dL Final 10/10/2016 0.84 0.73 - 1.22 mg/dL Final Hemoglobin (g/dL) Date Value 08/11/2017 12.0 Hematocrit (%) Date Value 08/11/2017 35.7 WBC (k/uL) Date Value 08/11/2017 6.32 Platelet Count (k/uL) Date Value 08/11/2017 172 Lab Results Component Value Date PSA 0.49 11/24/2016 PSA 0.46 09/16/2016 PSA 0.37 03/26/2015 PSA 0.43 12/22/2013 PSA 0.40 05/19/2013 PSA 0.52 12/09/2011 UA: GLUCOSE UA (POCT) Negative 12/27/2017 BILIRUBIN UA (POCT) Negative 12/27/2017 KETONE UA (POCT) Negative 12/27/2017 SPECIFIC GRAVITY UA (POCT) <=1.005 12/27/2017 HEMOGLOBIN/BLOOD UA (POCT) Negative 12/27/2017 PH UA (POCT) 6.0 12/27/2017 PROTEIN UA (POCT) Negative 12/27/2017 UROBILINOGEN UA (POCT) 0.2 12/27/2017 NITRITE UA (POCT) Negative 12/27/2017 LEUKOCYTES UA (POCT) Negative 12/27/2017 COLOR UA (POCT) Yellow 12/27/2017 CLARITY UA (POCT) Clear 12/27/2017 Assessment/Recommendation: 67 M with recurrent LUTS s/p PVP 10 years ago 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 Pt still has reasonable flow and PVR but is quite bothered by his LUTS - main nocturia and obstructive symptoms. He has had minimal relief with meds. He will likely benefit from a deobstructing procedure. Will need to better assess anatomy and prostate size with cystoscopy. Will also r/o stricture. He is able to void a large volume with small residual so do not feel strongly about UDS at this time. Prostate was not very enlarged on DAYAMI so will also hold off on TRUS. Had discussion with patient about possible options including TURP, prostate vaporization, urolift, etc. Will be able to narrow choices down better after cysto. Risks and side effects may be more severe as this will be a reoperation. Also of note, pt has had surgery since his cardiac stents. Will still need clearance and may need to hold aspirin/fish oil depending on what/if surgery is chosen. -schedule for cysto in 2-3 weeks. -obtain UCX at next visit in anticipation of procedure Twyla Alejandra MD 5:34 PM 12/26/2017 PROGRESS Observed: 12/22/2017 Status: COMPLETED Source: [place] 1:50 PM [facility] [place] REPOSITORY HNO ID: [id number] Author: Jose Chu V Service: (none) Author Type: Physician Type: Progress Notes Filed: 12/22/2017 2:29 PM Note Text: Liliya Encinas presents with pain in the right shoulder. Symptoms began about 2 weeks ago when he was shooting his long blow regularly. He was seen in express care, x-ray was taken and he was started on prednisone taper. He states that the symptoms are much better but still is having soreness when he tries to raise his arm or draws bow. The pain is rated as 3 on a scale of 1-10 . PAST MEDICAL HISTORY Diagnosis Date - Acute gastritis without mention of hemorrhage - ADHD (attention deficit hyperactivity disorder) on Lexapro - ASHD (arteriosclerotic heart disease) 04/05/2012 stent x2, Dr. 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 Riley - Testicular lesion right, s/p removal - Vitamin D insufficiency PAST SURGICAL HISTORY Procedure Laterality Date - CC PCI CORONARY INTERVENT 03/2013 X2 - COLONOSCOP W/ OR W/O [facility] SPEC TA and hyperplastic polyps removed. - COLONOSCOP W/ OR W/O [facility] SPEC 04/13/2017 Colonoscopy - Poor prep - 5 year follow up - COLONOSCOPY W/BX 09/11/11 repeat 5 years - EGD W/O [facility] SPECIMEN W/BX 08/26/07 - HEART SURGERY HX - PAST SURGICAL HISTORY OF removal of right testicle for pre cancer - PAST SURGICAL HISTORY OF 07/26/2006 right lung scrapping and cleaning for impiemia - PAST SURGICAL HISTORY OF remote sinus surgery - PAST SURGICAL HISTORY OF 03/22/2009 microdiscectomy- lumbar - PAST SURGICAL HISTORY OF 05/2009 cerebral meningioma - PAST SURGICAL HISTORY OF 07/2010 Micro discectomy low back - PAST SURGICAL HISTORY OF 07/2013 lumbar discectomy - PAST SURGICAL HISTORY OF Left 04/2015 ankle microfracture, fusion of forefoot - PAST SURGICAL HISTORY OF 2016 L3-L5 revision posterior decompression with TLIF - PAST SURGICAL HISTORY OF 2017 2 level cervical disc replacement - REPAIR ING HERNIA,5+Y/O,REDUCIBL right Hernia repair, inguinal - REVISE MEDIAN N/CARPAL TUNNEL SURG left Carpal tunnel decomp - REVISE MEDIAN N/CARPAL TUNNEL SURG Right 12/02/2016 Right carpal tunnel release - TRANSURETHRAL ELEC-SURG PROSTATECTOM 09/2007 - VASECTOMY Current Outpatient Prescriptions on File Prior to Visit: doxycycline hyclate (VIBRAMYCIN) 100 mg capsule Take 1 capsule by mouth twice daily for 10 days. DULoxetine (CYMBALTA) 30 mg capsule Take 30 mg by mouth once daily. tamsulosin ER (FLOMAX) 0.4 mg cp24 Take 1 capsule by mouth once daily. ezetimibe (ZETIA) 10 mg tablet Take 1 tablet by mouth once daily. aspirin, enteric coated (ADULT LOW DOSE ASPIRIN) 81 mg EC tablet Take 1 tablet by mouth once daily. The Whole Probiotic ([employer]) Take 1 capsule by mouth once daily. Treatment 3-6 months Homocysteine [place] (OrdrIt) Take 2 capsules by mouth daily with food. B-Complex Plus (Pure Encapsulations) Take 1 capsule by mouth daily with food. ONE [place] (Pure Encapsulation) Take 3 capsules by mouth daily with food. Magnesium Citrate 150mg 90 ct. (Pure Encapsulations) Take 3 capsules daily. [employer] Multivitamin (Pure Encapsulations) Take 1 capsule by mouth daily with food. 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 (Pure Encapsulations) liver/detox support Take 3 capsules daily, in divided doses, between meals. (Patient not taking: Reported on 12/22/2017 ) gabapentin (NEURONTIN) 300 mg capsule Take 600 mg by mouth daily at bedtime. escitalopram oxalate (LEXAPRO) 10 mg tablet take 1 tablet by mouth once daily (Patient not taking: Reported on 12/22/2017) No current facility-administered medications on file prior to visit. Physical Exam Findings: General exam: Normal, Extremeties right shoulder tenderness over supraspinatus attachment. There is pain with resisted arm abduction at 90?. Drop arm test is negative for weakness. Ramirez test is positive. Rotator cuff strength 5 out of 5. Assessment: Subacromial impingement right shoulder Plan: 1. Patient Instructions: apply ice and gradual return to activity 2. The risk, benefits and alternatives of injection and no injection therapy were discussed. Personnel were discussed and the patient consented for an injection. The patient has been identified by name and birthdate. The injection site was identified, marked and prepped with a alcohol swab. Time out completed. The subacromial space was injected with a 22 gauge needle with 1cc Celestone (6 mg), 2cc xylocaine plain 1% and 2cc marcaine plain 0.5%. The injection site was then dressed with a bandaid. The patient tolerated the injection well. The patient was instructed to call the office if any adverse local effects occurred or any if any questions or concerns arise. Jose Chu DO PROGRESS Observed: 12/22/2017 Status: COMPLETED Source: [place] 1:07 PM [facility] REPOSITORY O ID: [id number] Author: Daniela Vidal RN Service: (none) Author Type: (none) Type: Progress Notes Filed: 12/22/2017 2:29 PM Note Text: AMB ROOMING INTAKE FLOWSHEET DATA Risk Screening Do you have concerns about personal safety or safety in the home?: No Pain Pain Score: 3/10 Pain Location: Shoulder-Right Description: Aching Duration Amount of Time: 2 Duration Units: Weeks Frequency: Continuous Patient presents with: New problem: right shoulder pain, xray, last seen 5-16-18 lumbar stenosis Pt. presents with 2 week hx of right shoulder pain.. on top of joint. He is taking nothing for this and has not tried ice or heat. He states he thinks it is from overuse. CNOV Observed: 12/22/2017 Status: COMPLETED Source: [place] 1:00 PM [facility] REPOSITORY Office Visit (UC) LILIYA ENCINAS ([id number]) 1950 M Date Time Provider Department 12/22/17 1:00 PM JOSE CHU During your visit today, we recorded the following information about you: Daniela Vidal RN 12/22/2017 2:29 PM Signed AMB ROOMING INTAKE FLOWSHEET DATA Risk Screening Do you have concerns about personal safety or safety in the home?: No Pain Pain Score: 3/10 Pain Location: Shoulder-Right Description: Aching Duration Amount of Time: 2 Duration Units: Weeks Frequency: Continuous Patient presents with: New problem: right shoulder pain, xray, last seen 09-15-17 lumbar stenosis Pt. presents with 2 week hx of right shoulder pain.. on top of joint. He is taking nothing for this and has not tried ice or heat. He states he thinks it is from overuse. Jose Chu DO 12/22/2017 2:29 PM Signed Liliya Encinas presents with pain in the right shoulder. Symptoms began about 2 weeks ago when he was shooting his long blow regularly. He was seen in [facility] care, x-ray was taken and he was started on prednisone taper. He states that the symptoms are much better but still is having soreness when he tries to raise his arm or draws bow. The pain is rated as 3 on a scale of 1-10 . PAST MEDICAL HISTORY Diagnosis Date - Acute gastritis without mention of hemorrhage - ADHD (attention deficit hyperactivity disorder) on Lexapro - ASHD (arteriosclerotic heart disease) 04/05/2012 stent x2, Dr. 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 Riley - Testicular lesion right, s/p removal - Vitamin D insufficiency PAST SURGICAL HISTORY Procedure Laterality Date - CC PCI CORONARY INTERVENT 03/2013 X2 - COLONOSCOP W/ OR W/O [facility] SPEC TA and hyperplastic polyps removed. - COLONOSCOP W/ OR W/O BRS SPEC 04/13/2017 Colonoscopy - Poor prep - 5 year follow up - COLONOSCOPY W/BX 09/11/11 repeat 5 years - EGD W/O [facility] SPECIMEN W/BX 08/26/07 - HEART SURGERY HX - PAST SURGICAL HISTORY OF removal of right testicle for pre cancer - PAST SURGICAL HISTORY OF 07/26/2006 right lung scrapping and cleaning for impiemia - PAST SURGICAL HISTORY OF remote sinus surgery - PAST SURGICAL HISTORY OF 03/22/2009 microdiscectomy- lumbar - PAST SURGICAL HISTORY OF 05/2009 cerebral meningioma - PAST SURGICAL HISTORY OF 07/2010 Micro discectomy low back - PAST SURGICAL HISTORY OF 07/2013 lumbar discectomy - PAST SURGICAL HISTORY OF Left 04/2015 ankle microfracture, fusion of forefoot - PAST SURGICAL HISTORY OF 2016 L3-L5 revision posterior decompression with TLIF - PAST SURGICAL HISTORY OF 2017 2 level cervical disc replacement - REPAIR ING HERNIA,5+Y/O,REDUCIBL right Hernia repair, inguinal - REVISE MEDIAN N/CARPAL TUNNEL SURG left Carpal tunnel decomp - REVISE MEDIAN N/CARPAL TUNNEL SURG Right 12/02/2016 Right carpal tunnel release - TRANSURETHRAL ELEC-SURG PROSTATECTOM 09/2007 - VASECTOMY Current Outpatient Prescriptions on File Prior to Visit: doxycycline hyclate (VIBRAMYCIN) 100 mg capsule Take 1 capsule by mouth twice daily for 10 days. DULoxetine (CYMBALTA) 30 mg capsule Take 30 mg by mouth once daily. tamsulosin ER (FLOMAX) 0.4 mg cp24 Take 1 capsule by mouth once daily. ezetimibe (ZETIA) 10 mg tablet Take 1 tablet by mouth once daily. aspirin, enteric coated (ADULT LOW DOSE ASPIRIN) 81 mg EC tablet Take 1 tablet by mouth once daily. The Whole Probiotic ([employer]) Take 1 capsule by mouth once daily. Treatment 3-6 months Homocysteine [place] ([employer]) Take 2 capsules by mouth daily with food. B-Complex Plus (Pure Encapsulations) Take 1 capsule by mouth daily with food. ONE [place] (Pure Encapsulation) Take 3 capsules by mouth daily with food. Magnesium Citrate 150mg 90 ct. (Pure Encapsulations) Take 3 capsules daily. [employer] Multivitamin (Pure Encapsulations) Take 1 capsule by mouth daily with food. 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 (Pure Encapsulations) liver/detox support Take 3 capsules daily, in divided doses, between meals. (Patient not taking: Reported on 12/22/2017 ) gabapentin (NEURONTIN) 300 mg capsule Take 600 mg by mouth daily at bedtime. escitalopram oxalate (LEXAPRO) 10 mg tablet take 1 tablet by mouth once daily (Patient not taking: Reported on 12/22/2017) No current facility-administered medications on file prior to visit. Physical Exam Findings: General exam: Normal, Extremeties right shoulder tenderness over supraspinatus attachment. There is pain with resisted arm abduction at 90?. Drop arm test is negative for weakness. Ramirez test is positive. Rotator cuff strength 5 out of 5. Assessment: Subacromial impingement right shoulder Plan: 1. Patient Instructions: apply ice and gradual return to activity 2. The risk, benefits and alternatives of injection and no injection therapy were discussed. Personnel were discussed and the patient consented for an injection. The patient has been identified by name and birthdate. The injection site was identified, marked and prepped with a alcohol swab. Time out completed. The subacromial space was injected with a 22 gauge needle with 1cc Celestone (6 mg), 2cc xylocaine plain 1% and 2cc marcaine plain 0.5%. The injection site was then dressed with a bandaid. The patient tolerated the injection well. The patient was instructed to call the office if any adverse local effects occurred or any if any questions or concerns arise. Jose Chu, Referring Provider: SELF [[id number]] Allergies As of Date: 12/22/2017 (No Known Allergies) Date Reviewed: 12/22/2017 Reviewed by: Daniela Vidal RN - Fully Assessed Reason for Visit: New problem [Other] Cmt: right shoulder pain, xray, last seen 518 lumbar stenosis Primary Visit Diagnosis:Impingement syndrome of shoulder region, right [M75.41] Order(s):[] betamethasone acetate-betamethasone sodium phosphate 6 mg injection (CELESTONE)Disp: Rfl: Prescriptions as of 12/22/2017 Sig: DOXYCYCLINE HYCLATE 100 MG CA* Take 1 capsule by mouth twice* DULOXETINE 30 MG CAPSULE,DAMION* Take 30 mg by mouth once valentin* TAMSULOSIN 0.4 MG CAPSULE Take 1 capsule by mouth once * EZETIMIBE 10 MG TABLET Take 1 tablet by mouth once d* ASPIRIN 81 MG TABLET,DELAYED * Take 1 tablet by mouth once d* OTC NUTRITIONAL SUPPLEMENT Take 1 capsule by mouth once * OTC NUTRITIONAL SUPPLEMENT Take 2 capsules by mouth valentin* OTC NUTRITIONAL SUPPLEMENT Take 1 capsule by mouth daily* OTC NUTRITIONAL SUPPLEMENT Take 3 capsules by mouth valentin* OTC NUTRITIONAL SUPPLEMENT Take 3 capsules daily. OTC NUTRITIONAL SUPPLEMENT Take 1 capsule by mouth daily* OTC NUTRITIONAL SUPPLEMENT Take 3-5 drops daily, with me* OTC NUTRITIONAL SUPPLEMENT 5 mg twice per day Patient not taking: Reported on 12/22/2017 OTC NUTRITIONAL SUPPLEMENT Take 1 in AM and 1 before bed Patient not taking: Reported on 12/22/2017 OTC NUTRITIONAL SUPPLEMENT Take 3 capsules daily, in div* Patient not taking: Reported on 12/22/2017 GABAPENTIN 300 MG CAPSULE Take 600 mg by mouth daily at* ESCITALOPRAM 10 MG TABLET take 1 tablet by mouth once d* Patient not taking: Reported on 12/22/2017 Problem List As Of Date 12/22/2017 Noted Resolved PERS HX TOBACCO USE [Z87.891] INVALID FOR* Abdominal pain, epigastric [R10.13] INVALID FOR*02/18/2010 Attention deficit disorder with hyperactivity [*INVALID FOR* NOCTURIA [R35.1] INVALID FOR* Pain in soft tissues of limb [M79.609] INVALID FOR*02/18/2010 Empyema without mention of fistula [J86.9] INVALID FOR*03/31/2017 Pain in joint, shoulder region [M25.519] INVALID FOR*04/06/2017 Esophagitis, unspecified [K20.9] INVALID FOR*04/06/2017 Acute gastritis without mention of hemorrhage [*INVALID FOR*03/31/2017 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 Tear of medial cartilage or meniscus of knee, c*INVALID FOR*04/06/2017 Lumbar radiculopathy [M54.16] INVALID FOR* ED (erectile dysfunction) [N52.9] INVALID FOR* Low testosterone [E34.9] INVALID FOR*03/31/2017 Benign neoplasm of colon [D12.6] INVALID FOR*03/31/2017 SUMMARY [V999.95] INVALID FOR* More... Unstable angina [I20.0] INVALID FOR*07/12/2012 Priority: A More... Hyperlipidemia [E78.5] INVALID FOR* Priority: C More... Sinus infection [J32.9] INVALID FOR*12/12/2011 More... Need for prophylactic measure [Z29.9] INVALID FOR*03/31/2017 More... Tubular adenoma of colon [D12.6] INVALID FOR* Presence of drug coated stent in posterior desc*INVALID FOR* ASCVD (arteriosclerotic cardiovascular disease)*INVALID FOR*03/31/2017 ASHD (arteriosclerotic heart disease) [I25.10] INVALID FOR* Right carpal tunnel syndrome [G56.01] INVALID FOR*04/06/2017 CAD (coronary artery disease) [I25.10] INVALID FOR* Priority: E More... Hypertension [I10] INVALID FOR* Diarrhea [R19.7] INVALID FOR*03/31/2017 More... Non-ST elevation myocardial infarction (NSTEMI)*INVALID FOR* More... Presence of drug coated stent in left circumfle*INVALID FOR* Lumbar foraminal stenosis [M99.83] INVALID FOR*03/31/2017 Lumbar spondylosis [M47.816] INVALID FOR* Priority: A Neural foraminal stenosis of lumbar spine [M99.*INVALID FOR* Priority: A More... Right lumbar radiculopathy [M54.16] INVALID FOR* Priority: C Status post insertion of drug-eluting stent int*INVALID FOR* Anxiety [F41.9] INVALID FOR* Thoracic or lumbosacral neuritis or radiculitis*INVALID FOR*04/06/2017 Lumbosacral spondylosis without myelopathy [M47*INVALID FOR* Hypertriglyceridemia [E78.1] INVALID FOR*03/31/2017 Rotator cuff syndrome of right shoulder [M75.10*INVALID FOR*04/06/2017 Family history of ischemic heart disease [Z82.4*INVALID FOR* Multiple vessel coronary artery disease [I25.10]INVALID FOR*03/31/2017 Statin intolerance [Z78.9] INVALID FOR* Hypogonadism in male [E29.1] Lumbar stenosis [M48.061] INVALID FOR* 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) [E72.12]INVALID FOR* 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 Cervical radiculopathy [M54.12] INVALID FOR* S/P cervical disc replacement [Z98.890] INVALID FOR* Priority: C Acute postoperative pain [G89.18] INVALID FOR* Priority: D More... Prescriptions ordered this encounter Disp Refills Start End BETAMETHASONE ACETATE AND SODIUM JUNA* 12/22/2017 12/22/2017 Route: OTHER Encounter Status:Closed by JOSE CHU DO, V on 12/22/17 XR SHLDR >/=3V Observed: 12/21/2017 Status: F Source: [facility]/DOROTHY AP/OT RT 1:03 PM [facility] * * *Final Report* * * DATE OF EXAM: Dec 21 2017 1:03PM WOX [id number] - XR SHLDR >/=3V AP/DOROTHY AP/OTHR RT / PROCEDURE REASON: Pain in right shoulder * * * * Physician Interpretation * * * * HISTORY: Right shoulder pain TECHNIQUE: 3 views COMPARISON: 12/26/2014 RESULT: There is a 4 mm calcification adjacent to the humeral head superolaterally which is not seen on the previous images and may be calcific tendinitis. There is again some degree of inferior AC joint spurring, which can impinge upon the rotator cuff. No abnormal upward riding of the humeral head or additional bony or joint abnormalities are noted. Glenohumeral joint appears intact. IMPRESSION: Calcific tendinitis is suspected. Lead [employer]er [employer]: AMADA Transcribe Date/Time: Dec 21 2017 1:03P Dictated by : BAHMAN NARVAEZ MD This examination was interpreted and the report reviewed and electronically signed by: BAHMAN NARVAEZ MD on Dec 21 2017 1:05PM EST [id number] PROGRESS Observed: 12/21/2017 Status: COMPLETED Source: [place] 12:46 PM [facility] REPOSITORY HNO ID: [id number] Author: Daniel Barfield (Rt) Service: (none) Author Type: Hand Laminator Type: Progress Notes Filed: 12/21/2017 1:00 PM Note Text: Radiology Service Progress Note PATIENT NAME: Liliya Encinas DATE OF SERVICE: December 21, 2017 TIME: 12:46 PM PATIENT IDENTITY VERIFICATION COMPLETED USING TWO (2) METHODS: Patient confirmed name verbally and Date of . PATIENT GENDER DATA: Male PATIENT RELEVANT IMPLANT DATA REVIEWED: Not Applicable RADIOLOGY DEPARTMENT: General X-ray: Exam(s) Completed: Upper Extremity X-Ray(s): Shoulder, AP / TRUE AP / AXILLARY right : PERIPHERAL IV DATA: Not applicable SIGNED BY: RT Lico December 21, 2017 12:46 PM PROGRESS Observed: 12/16/2017 Status: COMPLETED Source: [place] 1:05 PM [facility] REPOSITORY HNO ID: [id number] Author: Merle Moe Service: (none) Author Type: Nurse Practitioner Type: Progress Notes Filed: 12/16/2017 1:35 PM Note Text: Subjective Liliya Encinas is a 67 year old male who presents with sinus drainage and pressure, he is currently taking augmentin for a sinus infection diagnosed here 4 days ago. He states he felt better after 2 doses of the antibiotic, but now symptoms have returned and seem worse. Left side of face is more affected than right. Review of Systems Constitutional: Negative. Negative for fever. HENT: Positive for congestion and sinus pain. Eyes: Negative. Negative for blurred vision and double vision. Respiratory: Negative. Negative for cough. Cardiovascular: Negative. Gastrointestinal: Negative. Negative for nausea and vomiting. BP 130/78 Pulse 76 Temp 36.2 ?C (97.2 ?F) (Tympanic) Resp 16 Wt 88.5 kg (195 lb 3.2 oz) BMI 25.75 kg/m? PAST MEDICAL HISTORY Diagnosis Date - Acute gastritis without mention of hemorrhage - ADHD (attention deficit hyperactivity disorder) on Lexapro - ASHD (arteriosclerotic heart disease) 04/05/2012 stent x2, Dr. 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 Riley - Testicular lesion right, s/p removal - Vitamin D insufficiency PAST SURGICAL HISTORY Procedure Laterality Date - CC PCI CORONARY INTERVENT 03/2013 X2 - COLONOSCOP W/ OR W/O [facility] SPEC TA and hyperplastic polyps removed. - COLONOSCOP W/ OR W/O BRS SPEC 04/13/2017 Colonoscopy - Poor prep - 5 year follow up - COLONOSCOPY W/BX 09/11/11 repeat 5 years - EGD W/O [facility] SPECIMEN W/BX 08/26/07 - HEART SURGERY HX - PAST SURGICAL HISTORY OF removal of right testicle for pre cancer - PAST SURGICAL HISTORY OF 07/26/2006 right lung scrapping and cleaning for impiemia - PAST SURGICAL HISTORY OF remote sinus surgery - PAST SURGICAL HISTORY OF 03/22/2009 microdiscectomy- lumbar - PAST SURGICAL HISTORY OF 05/2009 cerebral meningioma - PAST SURGICAL HISTORY OF 07/2010 Micro discectomy low back - PAST SURGICAL HISTORY OF 07/2013 lumbar discectomy - PAST SURGICAL HISTORY OF Left 04/2015 ankle microfracture, fusion of forefoot - PAST SURGICAL HISTORY OF 2016 L3-L5 revision posterior decompression with TLIF - PAST SURGICAL HISTORY OF 2017 2 level cervical disc replacement - REPAIR ING HERNIA,5+Y/O,REDUCIBL right Hernia repair, inguinal - REVISE MEDIAN N/CARPAL TUNNEL SURG left Carpal tunnel decomp - REVISE MEDIAN N/CARPAL TUNNEL SURG Right 12/02/2016 Right carpal tunnel release - TRANSURETHRAL ELEC-SURG PROSTATECTOM 09/2007 - VASECTOMY ALLERGIES Patient has no known allergies. MEDICATIONS amoxicillin-clavulanic acid (AUGMENTIN) 875-125 mg per tablet Take 1 tablet by mouth twice daily for 10 days. DULoxetine (CYMBALTA) 30 mg capsule Take 30 mg by mouth once daily. 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 (Pure Encapsulations) liver/detox support Take 3 capsules daily, in divided doses, between meals. tamsulosin ER (FLOMAX) 0.4 mg cp24 Take 1 capsule by mouth once daily. ezetimibe (ZETIA) 10 mg tablet Take 1 tablet by mouth once daily. gabapentin (NEURONTIN) 300 mg capsule Take 600 mg by mouth daily at bedtime. aspirin, enteric coated (ADULT LOW DOSE ASPIRIN) 81 mg EC tablet Take 1 tablet by mouth once daily. The Whole Probiotic ([employer]) Take 1 capsule by mouth once daily. 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 B-Complex Plus (Pure Encapsulations) Take 1 capsule by mouth daily with food. escitalopram oxalate (LEXAPRO) 10 mg tablet take 1 tablet by mouth once daily ONE [place] (Pure Encapsulation) Take 3 capsules by mouth daily with food. Magnesium Citrate 150mg 90 ct. (Pure Encapsulations) Take 3 capsules daily. [employer] Multivitamin (Pure Encapsulations) Take 1 capsule by mouth daily with food. Vitamin D3 Liquid (Pure Encapsulations) Take 3-5 drops daily, with meals FAMILY HISTORY Problem Relation Age of Onset - None Mother - Heart Father 80 stents x 2 - Arthritis Father Social History Substance Use Topics - Smoking status: Former Smoker Packs/day: 1.00 Years: 10.00 Types: Cigarettes Quit date: 05/03/1977 - Smokeless tobacco: Never Used - Alcohol use 7.5 oz/week 5 Glasses of Wine (5oz) per week Objective Physical Exam Constitutional: He is well-developed, well-nourished, and in no distress. HENT: Head: Normocephalic. Right Ear: Tympanic membrane, external ear and ear canal normal. Left Ear: Tympanic membrane, external ear and ear canal normal. Nose: Sinus tenderness present. Mouth/Throat: Uvula is midline, oropharynx is clear and moist and mucous membranes are normal. No posterior oropharyngeal edema or posterior oropharyngeal erythema. Eyes: Conjunctivae are normal. Right eye exhibits no discharge. Left eye exhibits no discharge. Neck: Neck supple. Cardiovascular: Normal rate, regular rhythm and normal heart sounds. Pulmonary/Chest: Effort normal and breath sounds normal. No respiratory distress. He has no wheezes. He has no rales. Lymphadenopathy: He has no cervical adenopathy. Neurological: He is alert. Skin: Skin is warm and dry. No erythema. Nursing note and vitals reviewed. ASSESSMENT/PLAN: 1. Bacterial sinusitis - ICD9: 473.9, 041.9, ICD10: J32.9, B96.89 - Will begin treatment with Doxycycline. Stop augmentin. - The patient should also be given Mucinex for the first 5- 7 days of treatment. - Supportive care with plenty of fluids, rest, and analgesia prn. - DOXYCYCLINE HYCLATE 100 MG CAPSULE - Follow-up with your PCP in 3-5 days if symptoms have not improved or sooner if symptoms worsen - Discussed red flags and need for immediate medical evaluation if any occur. - Discussed supportive care treatment with fluids, rest and analgesia. - Discussed expected course of illness Merle Moe APRN.[employer] FARMWORK[employer] CNOV Observed: 12/16/2017 Status: COMPLETED Source: [place] [id number]:00 PM [facility] REPOSITORY Office Visit ([facility]) LILIYA ENCINAS ([id number]) 1950 M Date Time Provider Department 12/16/17 1:00 PM MERLE MOE ([facility]) [facility] During your visit today, we recorded the following information about you: Temperature Pulse Respiration Blood pressure 97.2 degrees 76/minute 16/minute 130/78 Weight 88.5 kg Merle Moe APRN.CNP 12/16/2017 1:35 PM Signed Subjective Liliya Encinas is a 67 year old male who presents with sinus drainage and pressure, he is currently taking augmentin for a sinus infection diagnosed here 4 days ago. He states he felt better after 2 doses of the antibiotic, but now symptoms have returned and seem worse. Left side of face is more affected than right. Review of Systems Constitutional: Negative. Negative for fever. HENT: Positive for congestion and sinus pain. Eyes: Negative. Negative for blurred vision and double vision. Respiratory: Negative. Negative for cough. Cardiovascular: Negative. Gastrointestinal: Negative. Negative for nausea and vomiting. BP 130/78 Pulse 76 Temp 36.2 ?C (97.2 ?F) (Tympanic) Resp 16 Wt 88.5 kg (195 lb 3.2 oz) BMI 25.75 kg/m? PAST MEDICAL HISTORY Diagnosis Date - Acute gastritis without mention of hemorrhage - ADHD (attention deficit hyperactivity disorder) on Lexapro - ASHD (arteriosclerotic heart disease) 04/05/2012 stent x2, Dr. 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 Riley - Testicular lesion right, s/p removal - Vitamin D insufficiency PAST SURGICAL HISTORY Procedure Laterality Date - CC PCI CORONARY INTERVENT 03/2013 X2 - COLONOSCOP W/ OR W/O [facility] SPEC TA and hyperplastic polyps removed. - COLONOSCOP W/ OR W/O [facility]RS SPEC 04/13/2017 Colonoscopy - Poor prep - 5 year follow up - COLONOSCOPY W/BX 09/11/11 repeat 5 years - EGD W/O [facility] SPECIMEN W/BX 08/26/07 - HEART SURGERY HX - PAST SURGICAL HISTORY OF removal of right testicle for pre cancer - PAST SURGICAL HISTORY OF 07/26/2006 right lung scrapping and cleaning for impiemia - PAST SURGICAL HISTORY OF remote sinus surgery - PAST SURGICAL HISTORY OF 03/22/2009 microdiscectomy- lumbar - PAST SURGICAL HISTORY OF 05/2009 cerebral meningioma - PAST SURGICAL HISTORY OF 07/2010 Micro discectomy low back - PAST SURGICAL HISTORY OF 07/2013 lumbar discectomy - PAST SURGICAL HISTORY OF Left 04/2015 ankle microfracture, fusion of forefoot - PAST SURGICAL HISTORY OF 2016 L3-L5 revision posterior decompression with TLIF - PAST SURGICAL HISTORY OF 2017 2 level cervical disc replacement - REPAIR ING HERNIA,5+Y/O,REDUCIBL right Hernia repair, inguinal - REVISE MEDIAN N/CARPAL TUNNEL SURG left Carpal tunnel decomp - REVISE MEDIAN N/CARPAL TUNNEL SURG Right 12/02/2016 Right carpal tunnel release - TRANSURETHRAL ELEC-SURG PROSTATECTOM 09/2007 - VASECTOMY ALLERGIES Patient has no known allergies. MEDICATIONS amoxicillin-clavulanic acid (AUGMENTIN) 875-125 mg per tablet Take 1 tablet by mouth twice daily for 10 days. DULoxetine (CYMBALTA) 30 mg capsule Take 30 mg by mouth once daily. 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 (Pure Encapsulations) liver/detox support Take 3 capsules daily, in divided doses, between meals. tamsulosin ER (FLOMAX) 0.4 mg cp24 Take 1 capsule by mouth once daily. ezetimibe (ZETIA) 10 mg tablet Take 1 tablet by mouth once daily. gabapentin (NEURONTIN) 300 mg capsule Take 600 mg by mouth daily at bedtime. aspirin, enteric coated (ADULT LOW DOSE ASPIRIN) 81 mg EC tablet Take 1 tablet by mouth once daily. The Whole Probiotic ([employer]) Take 1 capsule by mouth once daily. Treatment 3-6 months Homocysteine [place] ([employer]) Take 2 capsules by mouth daily with food. B-Complex Plus (Pure Encapsulations) Take 1 capsule by mouth daily with food. escitalopram oxalate (LEXAPRO) 10 mg tablet take 1 tablet by mouth once daily ONE [place] (Pure Encapsulation) Take 3 capsules by mouth daily with food. Magnesium Citrate 150mg 90 ct. (Pure Encapsulations) Take 3 capsules daily. [employer] Multivitamin (Pure Encapsulations) Take 1 capsule by mouth daily with food. Vitamin D3 Liquid (Pure Encapsulations) Take 3-5 drops daily, with meals FAMILY HISTORY Problem Relation Age of Onset - None Mother - Heart Father 80 stents x 2 - Arthritis Father Social History Substance Use Topics - Smoking status: Former Smoker Packs/day: 1.00 Years: 10.00 Types: Cigarettes Quit date: 05/03/1977 - Smokeless tobacco: Never Used - Alcohol use 7.5 oz/week 5 Glasses of Wine (5oz) per week Objective Physical Exam Constitutional: He is well-developed, well-nourished, and in no distress. HENT: Head: Normocephalic. Right Ear: Tympanic membrane, external ear and ear canal normal. Left Ear: Tympanic membrane, external ear and ear canal normal. Nose: Sinus tenderness present. Mouth/Throat: Uvula is midline, oropharynx is clear and moist and mucous membranes are normal. No posterior oropharyngeal edema or posterior oropharyngeal erythema. Eyes: Conjunctivae are normal. Right eye exhibits no discharge. Left eye exhibits no discharge. Neck: Neck supple. Cardiovascular: Normal rate, regular rhythm and normal heart sounds. Pulmonary/Chest: Effort normal and breath sounds normal. No respiratory distress. He has no wheezes. He has no rales. Lymphadenopathy: He has no cervical adenopathy. Neurological: He is alert. Skin: Skin is warm and dry. No erythema. Nursing note and vitals reviewed. ASSESSMENT/PLAN: 1. Bacterial sinusitis - ICD9: 473.9, 041.9, ICD10: J32.9, B96.89 - Will begin treatment with Doxycycline. Stop augmentin. - The patient should also be given Mucinex for the first 5- 7 days of treatment. - Supportive care with plenty of fluids, rest, and analgesia prn. - DOXYCYCLINE HYCLATE 100 MG CAPSULE - Follow-up with your PCP in 3-5 days if symptoms have not improved or sooner if symptoms worsen - Discussed red flags and need for immediate medical evaluation if any occur. - Discussed supportive care treatment with fluids, rest and analgesia. - Discussed expected course of illness KARLA Azar APRN.CNP 12/16/2017 1:11 PM Signed Acute Sinusitis Each of us has four paired cavities (spaces) in our head that are connected to the nose by narrow channels. These cavities, known as sinuses, produce thin mucus that drains out of the channels of the nose. This drainage helps keep the nose clean and free of particles and bacteria. Normally, sinuses are filled with air. But when sinuses become blocked and filled with fluid, bacteria can grow and cause an infection (bacterial sinusitis). Conditions that cause sinus blockage include: ? the common cold ? allergic rhinitis (swelling of the lining of the nose due to allergies) ? nasal polyps (small growths in the lining of the nose), or ? a deviated septum (the wall between the left and right nostril is crooked). Allergies, such as hay fever, can also cause swelling and poor drainage of the sinuses. One confusing factor to consider is that many people with ?sinus headaches? are actually suffering from migraines. In fact, in large clinical studies, up to 90% of people who reported sinus headaches were diagnosed with migraines instead. Migraines can cause headaches in combination with facial pressure over the sinuses, a runny nose, and nasal congestion. If you have symptoms that involve the sinuses, it may be difficult to tell if you have sinusitis, a cold, nasal allergy, or even a migraine. This article will describe the symptoms, diagnosis, and treatment of sinusitis, and how to tell the difference between sinusitis, cold, migraines, and nasal allergy. What is sinusitis? Sinusitis is an inflammation, or swelling, of the tissue lining the sinuses. There are two types of sinusitis: ? Acute bacterial sinusitis: a sudden onset of cold symptoms such as runny nose, stuffy nose, and facial pain that does not go away after 10 days, or symptoms that seem to begin improving but return worse than the initial symptoms. It responds well to antibiotics and decongestants. ? Chronic sinusitis: a condition defined by nasal congestion, drainage, facial pain/pressure, and decreased sense of smell for at least 12 weeks. Who gets sinusitis? Every year, approximately 1 billion Americans have at least one episode of viral sinusitis. About 37 million will develop a bacterial sinusitis. People who have the following conditions have a higher risk of sinusitis: ? Nasal mucus membrane swelling, as from a common cold or allergies ? Blockage of drainage ducts, leading to trapping of mucus ? Structure differences that narrow the drainage ducts ? Conditions that result in an increased risk of infection ? Polyps (growths) In children, common factors in the environment that contribute to sinusitis include allergies, illness from other children at day care or school, and smoke in the environment. In adults, the contributing factors are most frequently viral infections, allergies, and smoking. What are the signs and symptoms of acute sinusitis? The primary symptoms of acute sinusitis include: ? Facial pain/pressure/tenderness ? Nasal stuffiness ? Nasal discharge (thick yellow or green discharge from nose), especially if it is long-lasting. These also may be present with viral illness. ? Loss of smell and taste ? Cough/congestion Additional symptoms may include: ? Fever of 102? or higher ? Ear pain ? Headache ? Bad breath ? Fatigue ? Ache in upper jaw and teeth How is sinusitis diagnosed? To diagnose sinusitis, your doctor will discuss your symptoms and examine your nose for swelling and drainage. Your personal history is most important in diagnosing sinusitis. A physical exam of the ears, nose, and throat is performed to look for signs of obstruction (blockage) or infection. Some patients may have conditions that may need to be referred to a specialist, such as an ear, nose, and throat (ENT) physician. How is sinusitis treated? Acute sinusitis. If you have a simple sinusitis infection, your health care provider may recommend treatment with [id number] medications for cold and allergy, nasal saline irrigation, and drinking fluids (as most sinusitis is viral). Use of prescription intranasal steroid sprays might be added to help control symptoms. However, non-prescription drops or sprays should not be used beyond 5 days -- or they may actually increase congestion. If symptoms do not improve after at least 10 days, if the symptoms seem to be getting worse, or if medications for cold or allergy do not improve symptoms, a bacterial infection may be causing the sinusitis. In this case, antibiotics are given for 7 days in adults and 10 days in children. Antibiotics should improve symptoms within 48 hours. Chronic sinusitis. Treating chronic sinusitis begins with controlling the underlying condition, which is most often allergies. Standard treatments include intranasal steroid sprays, topical antihistamine sprays, or antihistamine pills, and leukotriene antagonists such as montelukast. Often you will be encouraged to rinse the nose with saline irrigations. Sometimes medications may be added to these irrigations. If sinusitis is not controlled, the next step is a visit with an Ear, Nose and Throat Specialist. Will I need to make lifestyle changes? If you have indoor allergies, avoiding triggers -- such as animal dander and dust mites ? is recommended in addition to medications. Smoking is never recommended, but if you do smoke, strongly consider a program to help you stop smoking, as this may be the main reason you have sinus infections. No special diet is required, but drinking extra fluids helps to thin nasal secretions. What are the symptoms of the common cold? An upper respiratory infection (the common cold) is usually caused by a virus that infects the nose and throat. Most upper respiratory infections are not bacterial and do not respond to antibiotics. A cold may cause swelling in the sinuses, preventing the outflow of mucus. Cold symptoms include nasal congestion, runny nose, post-nasal drip (srzl-wq-rscj release of nasal fluid into the back of the throat), headache, achiness, and fatigue. Cough and fever may also go along with these symptoms. Cold symptoms usually build, peak, and slowly disappear. No treatment is necessary for a cold, but some medications can ease symptoms. For example, decongestants may decrease drainage and open the nasal passages. Analgesics (pain relievers) may help with fever and headache. Cough medication may help, as well. Colds will typically last from a few days to about a week. What is the harm in getting an antibiotic for a common cold? Viral infections like the common cold are not cured by antibiotics. Taking an antibiotic for a viral infection unnecessarily puts you at risk for side effects related to the antibiotic. In addition, the overuse of antibiotics leads to antibiotic resistance, which may make future infections more difficult to treat. Finally, the use of inappropriate medication increases health care costs unnecessarily. What are the symptoms of nasal allergy? Symptoms of nasal allergy include: ? Sneezing ? Itchy nose ? Clear, watery nasal discharge ? Nasal blockage ? Feeling fatigued How is nasal allergy treated? Usually medications are prescribed to relieve symptoms. These may include antihistamines, with or without decongestants, or steroid nasal sprays. Other nasal sprays, which deliver antihistamines or cromolyn sodium, are sometimes helpful. If allergy symptoms are chronic (long-term), allergy testing and allergy shots (immunotherapy) may be helpful. How can I tell if I have a sinus infection, cold, or nasal allergy? Although the symptoms of sinusitis and nasal allergy may occur with a common cold, in general, cold-related symptoms disappear within 1 week. The point at which a normal cold ends and a sinus condition begins is not always easy to know. If you are fighting off a cold and develop symptoms of a sinus infection or nasal allergy, see your health care provider. You will be asked to describe your symptoms and medical history. ? How do I know if my sinus condition requires the care of an ear, nose, and throat specialist? Most routine sinus conditions are easily cared for by primary care physicians. If, however, you are bothered by ongoing abnormal symptoms, recurring infections, or have abnormal X-ray findings or complications, a referral to a specialist is appropriate. References ? Henok Bowman. et al., IDSA Clinical Practice Guideline for Acute Bacterial Rhinosinusitis in Children and Adults. Clinical Infectious Diseases; 2012;54(8):2847-3107. ? Juan David Nicole, Sinusitis: Allergies, antibiotics, aspirin, asthma. [facility] Journal of Medicine 2006; 73(7): 671-678 ? National [place] of Allergy and Infectious [employer]. Sinusitis (Sinus Infection) Accessed 03/12/2015. ? [place] [employer], [employer]hma, and Immun[employer]. Sinusitis Accessed 03/12/2015. ? [place] [employer], [employer]. Sinus Information Accessed 03/12/2015. ? Mague Wolfe., Prevalence of migraine in patients with a history of self-reported or physician-diagnosed sinus headache. Arch Toe Lining Closer Med, 2003. 164(88):3412-24. ? Copyright 1001-3379 [facility]. All rights reserved. Referring Provider: SELF [200] Allergies As of Date: 12/16/2017 (No Known Allergies) Date Reviewed: 12/16/2017 Reviewed by: Merle ([facility]) Rodolfo - Fully Assessed Reason for Visit: sinus pain and pressure [Other] Cmt: still on antibiotic and was getting better for a few days and now getting worse Primary Visit Diagnosis:Bacterial sinusitis [J32.9, B96.89] Order(s):doxycycline hyclate (VIBRAMYCIN) 100 mg capsuleTake 1 capsule by mouth twice daily for 10 days.Disp: 20 capsuleRfl: 0 Prescriptions as of 12/16/2017 Sig: DULOXETINE 30 MG CAPSULE,DAMION* Take 30 mg by mouth once valentin* OTC NUTRITIONAL SUPPLEMENT 5 mg twice per day OTC NUTRITIONAL SUPPLEMENT Take 1 in AM and 1 before bed OTC NUTRITIONAL SUPPLEMENT Take 3 capsules daily, in div* TAMSULOSIN 0.4 MG CAPSULE Take 1 capsule by mouth once * EZETIMIBE 10 MG TABLET Take 1 tablet by mouth once d* GABAPENTIN 300 MG CAPSULE Take 600 mg by mouth daily at* ASPIRIN 81 MG TABLET,DELAYED * Take 1 tablet by mouth once d* OTC NUTRITIONAL SUPPLEMENT Take 1 capsule by mouth once * OTC NUTRITIONAL SUPPLEMENT Take 2 capsules by mouth valentin* OTC NUTRITIONAL SUPPLEMENT Take 1 capsule by mouth daily* ESCITALOPRAM 10 MG TABLET take 1 tablet by mouth once d* OTC NUTRITIONAL SUPPLEMENT Take 3 capsules by mouth valentin* OTC NUTRITIONAL SUPPLEMENT Take 3 capsules daily. OTC NUTRITIONAL SUPPLEMENT Take 1 capsule by mouth daily* OTC NUTRITIONAL SUPPLEMENT Take 3-5 drops daily, with me* DOXYCYCLINE HYCLATE 100 MG CA* Take 1 capsule by mouth twice* Problem List As Of Date 12/16/2017 Noted Resolved PERS HX TOBACCO USE [Z87.891] INVALID FOR* Abdominal pain, epigastric [R10.13] INVALID FOR*02/18/2010 Attention deficit disorder with hyperactivity [*INVALID FOR* NOCTURIA [R35.1] INVALID FOR* Pain in soft tissues of limb [M79.609] INVALID FOR*02/18/2010 Empyema without mention of fistula [J86.9] INVALID FOR*03/31/2017 Pain in joint, shoulder region [M25.519] INVALID FOR*04/06/2017 Esophagitis, unspecified [K20.9] INVALID FOR*04/06/2017 Acute gastritis without mention of hemorrhage [*INVALID FOR*03/31/2017 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 Tear of medial cartilage or meniscus of knee, c*INVALID FOR*04/06/2017 Lumbar radiculopathy [M54.16] INVALID FOR* ED (erectile dysfunction) [N52.9] INVALID FOR* Low testosterone [E34.9] INVALID FOR*03/31/2017 Benign neoplasm of colon [D12.6] INVALID FOR*03/31/2017 SUMMARY [V999.95] INVALID FOR* More... Unstable angina [I20.0] INVALID FOR*07/12/2012 Priority: A More... Hyperlipidemia [E78.5] INVALID FOR* Priority: C More... Sinus infection [J32.9] INVALID FOR*12/12/2011 More... Need for prophylactic measure [Z29.9] INVALID FOR*03/31/2017 More... Tubular adenoma of colon [D12.6] INVALID FOR* Presence of drug coated stent in posterior desc*INVALID FOR* ASCVD (arteriosclerotic cardiovascular disease)*INVALID FOR*03/31/2017 ASHD (arteriosclerotic heart disease) [I25.10] INVALID FOR* Right carpal tunnel syndrome [G56.01] INVALID FOR*04/06/2017 CAD (coronary artery disease) [I25.10] INVALID FOR* Priority: E More... Hypertension [I10] INVALID FOR* Diarrhea [R19.7] INVALID FOR*03/31/2017 More... Non-ST elevation myocardial infarction (NSTEMI)*INVALID FOR* More... Presence of drug coated stent in left circumfle*INVALID FOR* Lumbar foraminal stenosis [M99.83] INVALID FOR*03/31/2017 Lumbar spondylosis [M47.816] INVALID FOR* Priority: A Neural foraminal stenosis of lumbar spine [M99.*INVALID FOR* Priority: A More... 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 Cervical radiculopathy [M54.12] INVALID FOR* S/P cervical disc replacement [Z98.890] INVALID FOR* Priority: C Acute postoperative pain [G89.18] INVALID FOR* Priority: D More... Other instructions from your clinician: Acute Sinusitis Each of us has four paired cavities (spaces) in our head that are connected to the nose by narrow channels. These cavities, known as sinuses, produce thin mucus that drains out of the channels of the nose. This drainage helps keep the nose clean and free of particles and bacteria. Normally, sinuses are filled with air. But when sinuses become blocked and filled with fluid, bacteria can grow and cause an infection (bacterial sinusitis). Conditions that cause sinus blockage include: ? the common cold ? allergic rhinitis (swelling of the lining of the nose due to allergies) ? nasal polyps (small growths in the lining of the nose), or ? a deviated septum (the wall between the left and right nostril is crooked). Allergies, such as hay fever, can also cause swelling and poor drainage of the sinuses. One confusing factor to consider is that many people with ?sinus headaches? are actually suffering from migraines. In fact, in large clinical studies, up to 90% of people who reported sinus headaches were diagnosed with migraines instead. Migraines can cause headaches in combination with facial pressure over the sinuses, a runny nose, and nasal congestion. If you have symptoms that involve the sinuses, it may be difficult to tell if you have sinusitis, a cold, nasal allergy, or even a migraine. This article will describe the symptoms, diagnosis, and treatment of sinusitis, and how to tell the difference between sinusitis, cold, migraines, and nasal allergy. What is sinusitis? Sinusitis is an inflammation, or swelling, of the tissue lining the sinuses. There are two types of sinusitis: ? Acute bacterial sinusitis: a sudden onset of cold symptoms such as runny nose, stuffy nose, and facial pain that does not go away after 10 days, or symptoms that seem to begin improving but return worse than the initial symptoms. It responds well to antibiotics and decongestants. ? Chronic sinusitis: a condition defined by nasal congestion, drainage, facial pain/pressure, and decreased sense of smell for at least 12 weeks. Who gets sinusitis? Every year, approximately 1 billion Americans have at least one episode of viral sinusitis. About 37 million will develop a bacterial sinusitis. People who have the following conditions have a higher risk of sinusitis: ? Nasal mucus membrane swelling, as from a common cold or allergies ? Blockage of drainage ducts, leading to trapping of mucus ? Structure differences that narrow the drainage ducts ? Conditions that result in an increased risk of infection ? Polyps (growths) In children, common factors in the environment that contribute to sinusitis include allergies, illness from other children at day care or school, and smoke in the environment. In adults, the contributing factors are most frequently viral infections, allergies, and smoking. What are the signs and symptoms of acute sinusitis? The primary symptoms of acute sinusitis include: ? Facial pain/pressure/tenderness ? Nasal stuffiness ? Nasal discharge (thick yellow or green discharge from nose), especially if it is long-lasting. These also may be present with viral illness. ? Loss of smell and taste ? Cough/congestion Additional symptoms may include: ? Fever of 102? or higher ? Ear pain ? Headache ? Bad breath ? Fatigue ? Ache in upper jaw and teeth How is sinusitis diagnosed? To diagnose sinusitis, your doctor will discuss your symptoms and examine your nose for swelling and drainage. Your personal history is most important in diagnosing sinusitis. A physical exam of the ears, nose, and throat is performed to look for signs of obstruction (blockage) or infection. Some patients may have conditions that may need to be referred to a specialist, such as an ear, nose, and throat (ENT) physician. How is sinusitis treated? Acute sinusitis. If you have a simple sinusitis infection, your health care provider may recommend treatment with [id number] medications for cold and allergy, nasal saline irrigation, and drinking fluids (as most sinusitis is viral). Use of prescription intranasal steroid sprays might be added to help control symptoms. However, non- prescription drops or sprays should not be used beyond 5 days -- or they may actually increase congestion. If symptoms do not improve after at least 10 days, if the symptoms seem to be getting worse, or if medications for cold or allergy do not improve symptoms, a bacterial infection may be causing the sinusitis. In this case, antibiotics are given for 7 days in adults and 10 days in children. Antibiotics should improve symptoms within 48 hours. Chronic sinusitis. Treating chronic sinusitis begins with controlling the underlying condition, which is most often allergies. Standard treatments include intranasal steroid sprays, topical antihistamine sprays, or antihistamine pills, and leukotriene antagonists such as montelukast. Often you will be encouraged to rinse the nose with saline irrigations. Sometimes medications may be added to these irrigations. If sinusitis is not controlled, the next step is a visit with an Ear, Nose and Throat Specialist. Will I need to make lifestyle changes? If you have indoor allergies, avoiding triggers -- such as animal dander and dust mites ? is recommended in addition to medications. Smoking is never recommended, but if you do smoke, strongly consider a program to help you stop smoking, as this may be the main reason you have sinus infections. No special diet is required, but drinking extra fluids helps to thin nasal secretions. What are the symptoms of the common cold? An upper respiratory infection (the common cold) is usually caused by a virus that infects the nose and throat. Most upper respiratory infections are not bacterial and do not respond to antibiotics. A cold may cause swelling in the sinuses, preventing the outflow of mucus. Cold symptoms include nasal congestion, runny nose, post- nasal drip (hqnq-vp-wrft release of nasal fluid into the back of the throat), headache, achiness, and fatigue. Cough and fever may also go along with these symptoms. Cold symptoms usually build, peak, and slowly disappear. No treatment is necessary for a cold, but some medications can ease symptoms. For example, decongestants may decrease drainage and open the nasal passages. Analgesics (pain relievers) may help with fever and headache. Cough medication may help, as well. Colds will typically last from a few days to about a week. What is the harm in getting an antibiotic for a common cold? Viral infections like the common cold are not cured by antibiotics. Taking an antibiotic for a viral infection unnecessarily puts you at risk for side effects related to the antibiotic. In addition, the overuse of antibiotics leads to antibiotic resistance, which may make future infections more difficult to treat. Finally, the use of inappropriate medication increases health care costs unnecessarily. What are the symptoms of nasal allergy? Symptoms of nasal allergy include: ? Sneezing ? Itchy nose ? Clear, watery nasal discharge ? Nasal blockage ? Feeling fatigued How is nasal allergy treated? Usually medications are prescribed to relieve symptoms. These may include antihistamines, with or without decongestants, or steroid nasal sprays. Other nasal sprays, which deliver antihistamines or cromolyn sodium, are sometimes helpful. If allergy symptoms are chronic (long- term), allergy testing and allergy shots (immunotherapy) may be helpful. How can I tell if I have a sinus infection, cold, or nasal allergy? Although the symptoms of sinusitis and nasal allergy may occur with a common cold, in general, cold-related symptoms disappear within 1 week. The point at which a normal cold ends and a sinus condition begins is not always easy to know. If you are fighting off a cold and develop symptoms of a sinus infection or nasal allergy, see your health care provider. You will be asked to describe your symptoms and medical history. ? How do I know if my sinus condition requires the care of an ear, nose, and throat specialist? Most routine sinus conditions are easily cared for by primary care physicians. If, however, you are bothered by ongoing abnormal symptoms, recurring infections, or have abnormal X-ray findings or complications, a referral to a specialist is appropriate. References ? Henok Bowman. et al., IDSA Clinical Practice Guideline for Acute Bacterial Rhinosinusitis in Children and Adults. Clinical Infectious Diseases; 2012;54(8):3689-0277. ? Juan David Nicole, Sinusitis: Allergies, antibiotics, aspirin, asthma. [facility] Journal of Medicine 2006; 73(7): 671-678 ? National [place] of Allergy and Infectious [employer]. Sinusitis (Sinus Infection) Accessed 03/12/2015. ? [place] [employer], [employer]hma, and Immun[employer]. Sinusitis Accessed 03/12/2015. ? [place] [employer], [employer]. Sinus Information Accessed 03/12/2015. ? Mague Wolfe., Prevalence of migraine in patients with a history of self-reported or physician-diagnosed sinus headache. Arch Toe [employer]ining Closer Med, 2004. 164(16):1769-72. ? Copyright 9370-5359 [facility]. All rights reserved. Prescriptions ordered this encounter Disp Refills Start End DOXYCYCLINE HYCLATE 100 MG CAPSULE 20 c* 0 12/16/2017 12/26/2017 Route: ORAL Sig: Take 1 capsule by mouth twice daily for 10 days. Medications Discontinued During This Encounter amoxicillin-clavulanic acid (AUGMENT* 20 t* 0 12/12/2017 12/16/2017 Route: ORAL Sig: Take 1 tablet by mouth twice daily for 10 days. Disc: Reason for discontinue is not on file. Encounter Status:Closed by MERLE MOE on 12/16/17 PROGRESS Observed: 12/12/2017 Status: COMPLETED Source: [place] 1:14 PM [facility] REPOSITORY HNO ID: [id number] Author: Mary Jo Barrios Service: (none) Author Type: Nurse Practitioner Type: Progress Notes Filed: 12/12/2017 1:42 PM Note Text: Subjective HPI HPI Liliya Encinas is a 67 year old male who presents today for CC of sinus pain. This started 3 weeks ago. Has tried otc medication without relief. Symptoms are worsened by nothing. Risk factors hx of sinus infections. .Patient presents with: sinus infection x 2 weeks PAST MEDICAL HISTORY Diagnosis Date - Acute gastritis without mention of hemorrhage - ADHD (attention deficit hyperactivity disorder) on Lexapro - ASHD (arteriosclerotic heart disease) 04/05/2012 stent x2, Dr. 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 Riley - Testicular lesion right, s/p removal - Vitamin D insufficiency PAST SURGICAL HISTORY Procedure Laterality Date - CC PCI CORONARY INTERVENT 03/2013 X2 - COLONOSCOP W/ OR W/O [facility] SPEC TA and hyperplastic polyps removed. - COLONOSCOP W/ OR W/O [facility] SPEC 04/13/2017 Colonoscopy - Poor prep - 5 year follow up - COLONOSCOPY W/BX 09/11/11 repeat 5 years - EGD W/O [facility] SPECIMEN W/BX 08/26/07 - HEART SURGERY HX - PAST SURGICAL HISTORY OF removal of right testicle for pre cancer - PAST SURGICAL HISTORY OF 07/26/2006 right lung scrapping and cleaning for impiemia - PAST SURGICAL HISTORY OF remote sinus surgery - PAST SURGICAL HISTORY OF 03/22/2009 microdiscectomy- lumbar - PAST SURGICAL HISTORY OF 05/2009 cerebral meningioma - PAST SURGICAL HISTORY OF 07/2010 Micro discectomy low back - PAST SURGICAL HISTORY OF 07/2013 lumbar discectomy - PAST SURGICAL HISTORY OF Left 04/2015 ankle microfracture, fusion of forefoot - PAST SURGICAL HISTORY OF 2016 L3-L5 revision posterior decompression with TLIF - PAST SURGICAL HISTORY OF 2018 2 level cervical disc replacement - REPAIR ING HERNIA,5+Y/O,REDUCIBL right Hernia repair, inguinal - RE[facility] N/CARPAL TUNNEL SURG left Carpal tunnel decomp - REVISE MEDIAN N/CARPAL TUNNEL SURG Right 12/02/2016 Right carpal tunnel release - TRANSURETHRAL ELEC-SURG PROSTATECTOM 09/2007 - VASECTOMY ALLERGIES Patient has no known allergies. MEDICATIONS DULoxetine (CYMBALTA) 30 mg capsule Take 30 mg by mouth once daily. 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 (Pure Encapsulations) liver/detox support Take 3 capsules daily, in divided doses, between meals. tamsulosin ER (FLOMAX) 0.4 mg cp24 Take 1 capsule by mouth once daily. ezetimibe (ZETIA) 10 mg tablet Take 1 tablet by mouth once daily. gabapentin (NEURONTIN) 300 mg capsule Take 600 mg by mouth daily at bedtime. aspirin, enteric coated (ADULT LOW DOSE ASPIRIN) 81 mg EC tablet Take 1 tablet by mouth once daily. The Whole Probiotic ([employer]) Take 1 capsule by mouth once daily. 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 B-Complex Plus (Pure Encapsulations) Take 1 capsule by mouth daily with food. escitalopram oxalate (LEXAPRO) 10 mg tablet take 1 tablet by mouth once daily ONE [place] (Pure Encapsulation) Take 3 capsules by mouth daily with food. Magnesium Citrate 150mg 90 ct. (Pure Encapsulations) Take 3 capsules daily. [employer] Multivitamin (Pure Encapsulations) Take 1 capsule by mouth daily with food. Vitamin D3 Liquid (Pure Encapsulations) Take 3-5 drops daily, with meals FAMILY HISTORY Problem Relation Age of Onset - None Mother - Heart Father 80 stents x 2 - Arthritis Father Social History Substance Use Topics - Smoking status: Former Smoker Packs/day: 1.00 Years: 10.00 Types: Cigarettes Quit date: 05/03/1977 - Smokeless tobacco: Never Used - Alcohol use 7.5 oz/week 5 Glasses of Wine (5oz) per week Review of Systems Constitutional: Negative for chills, fever and weight loss. HENT: Positive for congestion and sinus pain. Negative for ear pain, nosebleeds and sore throat. Respiratory: Negative for cough, shortness of breath and wheezing. Musculoskeletal: Negative for neck pain. Objective Blood pressure 128/80, pulse 80, temperature 36.5 ?C (97.7 ?F), temperature source Tympanic, resp. rate 14, weight 89.4 kg (197 lb 3.2 oz). Physical Exam Constitutional: He is oriented to person, place, and time and well-developed, well-nourished, and in no distress. Non-toxic appearance. He does not have a sickly appearance. No distress. HENT: Head: Normocephalic and atraumatic. Right Ear: Hearing, tympanic membrane, external ear and ear canal normal. Left Ear: Hearing, tympanic membrane, external ear and ear canal normal. Nose: Left sinus exhibits maxillary sinus tenderness and frontal sinus tenderness. Mouth/Throat: Uvula is midline, oropharynx is clear and moist and mucous membranes are normal. Eyes: Pupils are equal, round, and reactive to light. Conjunctivae and lids are normal. Right eye exhibits no discharge. Left eye exhibits no discharge. No scleral icterus. Neck: Trachea normal and normal range of motion. Neck supple. Cardiovascular: Normal rate, regular rhythm and normal heart sounds. Pulmonary/Chest: Effort normal and breath sounds normal. Lymphadenopathy: He has no cervical adenopathy. Neurological: He is alert and oriented to person, place, and time. Skin: No rash noted. He is not diaphoretic. ASSESSMENT/PLAN: 1. Bacterial sinusitis - ICD9: 473.9, 041.9, ICD10: J32.9, B96.89 - Will begin treatment with Augmentin 875 mg PO BID for 10 days - Supportive care with plenty of fluids, rest, and analgesia prn. - Follow up in 3-5 days if symptoms persist or worsen. -discussed use of fluticasone - AMOXICILLIN 875 MG-POTASSIUM CLAVULANATE 125 MG TABLET Prescription instructions reviewed with patient as applicable. Patient advised if symptoms do not improve or if symptoms worsen sooner, to contact the office for further evaluation by their primary care physician. Potential red flag symptoms discussed with the patient. Reviewed appropriate action plan to take if red flag symptoms occur. Patient agreeable to treatment plan. Mary Jo Barrios APRN.CNP CNOV Observed: 12/12/2017 Status: COMPLETED Source: [place] 12:45 PM [facility] REPOSITORY Office Visit ([facility]) LILIYA ENCINAS ([id number]) 1950 M Date Time Provider Department 12/12/17 12:45 PM MARY JO BARRIOS ([employer]) [facility] During your visit today, we recorded the following information about you: Temperature Pulse Respiration Blood pressure 97.7 degrees 80/minute 14/minute 128/80 Weight 89.4 kg Mary Jo Barrios APRN.CNP 12/12/2017 1:42 PM Signed Subjective HPI HPI Liliya Encinas is a 67 year old male who presents today for CC of sinus pain. This started 3 weeks ago. Has tried otc medication without relief. Symptoms are worsened by nothing. Risk factors hx of sinus infections. .Patient presents with: sinus infection x 2 weeks PAST MEDICAL HISTORY Diagnosis Date - Acute gastritis without mention of hemorrhage - ADHD (attention deficit hyperactivity disorder) on Lexapro - ASHD (arteriosclerotic heart disease) 04/05/2012 stent x2, Dr. 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 Riley - Testicular lesion right, s/p removal - Vitamin D insufficiency PAST SURGICAL HISTORY Procedure Laterality Date - CC PCI CORONARY INTERVENT 03/2013 X2 - COLONOSCOP W/ OR W/O [facility] SPEC TA and hyperplastic polyps removed. - COLONOSCOP W/ OR W/O [facility] SPEC 04/13/2017 Colonoscopy - Poor prep - 5 year follow up - COLONOSCOPY W/BX 09/11/11 repeat 5 years - EGD W/O [facility] SPECIMEN W/BX 08/26/07 - HEART SURGERY HX - PAST SURGICAL HISTORY OF removal of right testicle for pre cancer - PAST SURGICAL HISTORY OF 07/26/2006 right lung scrapping and cleaning for impiemia - PAST SURGICAL HISTORY OF remote sinus surgery - PAST SURGICAL HISTORY OF 03/22/2009 microdiscectomy- lumbar - PAST SURGICAL HISTORY OF 05/2009 cerebral meningioma - PAST SURGICAL HISTORY OF 07/2010 Micro discectomy low back - PAST SURGICAL HISTORY OF 07/2013 lumbar discectomy - PAST SURGICAL HISTORY OF Left 04/2015 ankle microfracture, fusion of forefoot - PAST SURGICAL HISTORY OF 2016 L3-L5 revision posterior decompression with TLIF - PAST SURGICAL HISTORY OF 2017 2 level cervical disc replacement - REPAIR ING HERNIA,5+Y/O,REDUCIBL right Hernia repair, inguinal - REVISE MEDIAN N/CARPAL TUNNEL SURG left Carpal tunnel decomp - REVISE MEDIAN N/CARPAL TUNNEL SURG Right 12/02/2016 Right carpal tunnel release - TRANSURETHRAL ELEC-SURG PROSTATECTOM 09/2007 - VASECTOMY ALLERGIES Patient has no known allergies. MEDICATIONS DULoxetine (CYMBALTA) 30 mg capsule Take 30 mg by mouth once daily. 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 (Pure Encapsulations) liver/detox support Take 3 capsules daily, in divided doses, between meals. tamsulosin ER (FLOMAX) 0.4 mg cp24 Take 1 capsule by mouth once daily. ezetimibe (ZETIA) 10 mg tablet Take 1 tablet by mouth once daily. gabapentin (NEURONTIN) 300 mg capsule Take 600 mg by mouth daily at bedtime. aspirin, enteric coated (ADULT LOW DOSE ASPIRIN) 81 mg EC tablet Take 1 tablet by mouth once daily. The Whole Probiotic ([employer]) Take 1 capsule by mouth once daily. Treatment 3-6 months Homocysteine [place] ([employer]) Take 2 capsules by mouth daily with food. B-Complex Plus (Pure Encapsulations) Take 1 capsule by mouth daily with food. escitalopram oxalate (LEXAPRO) 10 mg tablet take 1 tablet by mouth once daily ONE [place] (Pure Encapsulation) Take 3 capsules by mouth daily with food. Magnesium Citrate 150mg 90 ct. (Pure [employer]capsulations) Take 3 capsules daily. [employer] Multivitamin (Pure Encapsulations) Take 1 capsule by mouth daily with food. Vitamin D3 Liquid (Pure Encapsulations) Take 3-5 drops daily, with meals FAMILY HISTORY Problem Relation Age of Onset - None Mother - Heart Father 80 stents x 2 - Arthritis Father Social History Substance Use Topics - Smoking status: Former Smoker Packs/day: 1.00 Years: 10.00 Types: Cigarettes Quit date: 05/03/1977 - Smokeless tobacco: Never Used - Alcohol use 7.5 oz/week 5 Glasses of Wine (5oz) per week Review of Systems Constitutional: Negative for chills, fever and weight loss. HENT: Positive for congestion and sinus pain. Negative for ear pain, nosebleeds and sore throat. Respiratory: Negative for cough, shortness of breath and wheezing. Musculoskeletal: Negative for neck pain. Objective Blood pressure 128/80, pulse 80, temperature 36.5 ?C (97.7 ?F), temperature source Tympanic, resp. rate 14, weight 89.4 kg (197 lb 3.2 oz). Physical Exam Constitutional: He is oriented to person, place, and time and well-developed, well-nourished, and in no distress. Non-toxic appearance. He does not have a sickly appearance. No distress. HENT: Head: Normocephalic and atraumatic. Right Ear: Hearing, tympanic membrane, external ear and ear canal normal. Left Ear: Hearing, tympanic membrane, external ear and ear canal normal. Nose: Left sinus exhibits maxillary sinus tenderness and frontal sinus tenderness. Mouth/Throat: Uvula is midline, oropharynx is clear and moist and mucous membranes are normal. Eyes: Pupils are equal, round, and reactive to light. Conjunctivae and lids are normal. Right eye exhibits no discharge. Left eye exhibits no discharge. No scleral icterus. Neck: Trachea normal and normal range of motion. Neck supple. Cardiovascular: Normal rate, regular rhythm and normal heart sounds. Pulmonary/Chest: Effort normal and breath sounds normal. Lymphadenopathy: He has no cervical adenopathy. Neurological: He is alert and oriented to person, place, and time. Skin: No rash noted. He is not diaphoretic. ASSESSMENT/PLAN: 1. Bacterial sinusitis - ICD9: 473.9, 041.9, ICD10: J32.9, B96.89 - Will begin treatment with Augmentin 875 mg PO BID for 10 days - Supportive care with plenty of fluids, rest, and analgesia prn. - Follow up in 3-5 days if symptoms persist or worsen. -discussed use of fluticasone - AMOXICILLIN 875 MG-POTASSIUM CLAVULANATE 125 MG TABLET Prescription instructions reviewed with patient as applicable. Patient advised if symptoms do not improve or if symptoms worsen sooner, to contact the office for further evaluation by their primary care physician. Potential red flag symptoms discussed with the patient. Reviewed appropriate action plan to take if red flag symptoms occur. Patient agreeable to treatment plan. Mary Jo Barrios APRN.BE Barrios APRN.BE 12/12/2017 1:22 PM Signed SINUSITIS: You have sinusitis, an infection of the sinus cavities around the nose. This infection usually follows a respiratory illness; it can also be related to allergies, changes in atmospheric pressure (flying, diving), or anything that blocks nasal drainage. Symptoms include: headache, facial pain, a thick nasal discharge, congestion, and cough. The treatment includes antibiotic therapy, increasing oral fluids, and pain medication if needed. Nose spray decongestants (Afrin, Antony- Synephrine) and oral decongestants may be needed to reduce congestion and drainage. Rarely the sinus must be irrigated to remove the infected material. Sinusitis can lead to serious complications by spreading to other areas such as the eye or brain. Please call your doctor or return here right away if you have any of the following more serious symptoms: - Unusual swelling around the eye or trouble seeing. - Increasing pain, severe headache, or toothache. - Nausea, vomiting, or unusual drowsiness. Referring Provider: SELF [200] Allergies As of Date: 12/12/2017 (No Known Allergies) Date Reviewed: 12/12/2017 Reviewed by: Mary Jo Barrios - Fully Assessed Reason for Visit: sinus infection x 2 weeks [Other] Primary Visit Diagnosis:Bacterial sinusitis [J32.9, B96.89] Order(s):amoxicillin-clavulanic acid (AUGMENTIN) 875-125 mg per tabletTake 1 tablet by mouth twice daily for 10 days.Disp: 20 tabletRfl: 0 Prescriptions as of 12/12/2017 Sig: DULOXETINE 30 MG CAPSULE,DAMION* Take 30 mg by mouth once valentin* OTC NUTRITIONAL SUPPLEMENT 5 mg twice per day OTC NUTRITIONAL SUPPLEMENT Take 1 in AM and 1 before bed OTC NUTRITIONAL SUPPLEMENT Take 3 capsules daily, in div* TAMSULOSIN 0.4 MG CAPSULE Take 1 capsule by mouth once * EZETIMIBE 10 MG TABLET Take 1 tablet by mouth once d* GABAPENTIN 300 MG CAPSULE Take 600 mg by mouth daily at* ASPIRIN 81 MG TABLET,DELAYED * Take 1 tablet by mouth once d* OTC NUTRITIONAL SUPPLEMENT Take 1 capsule by mouth once * OTC NUTRITIONAL SUPPLEMENT Take 2 capsules by mouth valentin* OTC NUTRITIONAL SUPPLEMENT Take 1 capsule by mouth daily* ESCITALOPRAM 10 MG TABLET take 1 tablet by mouth once d* OTC NUTRITIONAL SUPPLEMENT Take 3 capsules by mouth valentin* OTC NUTRITIONAL SUPPLEMENT Take 3 capsules daily. OTC NUTRITIONAL SUPPLEMENT Take 1 capsule by mouth daily* OTC NUTRITIONAL SUPPLEMENT Take 3-5 drops daily, with me* AMOXICILLIN 875 MG-POTASSIUM * Take 1 tablet by mouth twice * Problem List As Of Date 12/12/2017 Noted Resolved PERS HX TOBACCO USE [Z87.891] INVALID FOR* Abdominal pain, epigastric [R10.13] INVALID FOR*02/18/2010 Attention deficit disorder with hyperactivity [*INVALID FOR* NOCTURIA [R35.1] INVALID FOR* Pain in soft tissues of limb [M79.609] INVALID FOR*02/18/2010 Empyema without mention of fistula [J86.9] INVALID FOR*03/31/2017 Pain in joint, shoulder region [M25.519] INVALID FOR*04/06/2017 Esophagitis, unspecified [K20.9] INVALID FOR*04/06/2017 Acute gastritis without mention of hemorrhage [*INVALID FOR*03/31/2017 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 Tear of medial cartilage or meniscus of knee, c*INVALID FOR*04/06/2017 Lumbar radiculopathy [M54.16] INVALID FOR* ED (erectile dysfunction) [N52.9] INVALID FOR* Low testosterone [E34.9] INVALID FOR*03/31/2017 Benign neoplasm of colon [D12.6] INVALID FOR*03/31/2017 SUMMARY [V999.95] INVALID FOR* More... Unstable angina [I20.0] INVALID FOR*07/12/2012 Priority: A More... Hyperlipidemia [E78.5] INVALID FOR* Priority: C More... Sinus infection [J32.9] INVALID FOR*12/12/2011 More... Need for prophylactic measure [Z29.9] INVALID FOR*03/31/2017 More... Tubular adenoma of colon [D12.6] INVALID FOR* Presence of drug coated stent in posterior desc*INVALID FOR* ASCVD (arteriosclerotic cardiovascular disease)*INVALID FOR*03/31/2017 ASHD (arteriosclerotic heart disease) [I25.10] INVALID FOR* Right carpal tunnel syndrome [G56.01] INVALID FOR*04/06/2017 CAD (coronary artery disease) [I25.10] INVALID FOR* Priority: E More... Hypertension [I10] INVALID FOR* Diarrhea [R19.7] INVALID FOR*03/31/2017 More... Non-ST elevation myocardial infarction (NSTEMI)*INVALID FOR* More... Presence of drug coated stent in left circumfle*INVALID FOR* Lumbar foraminal stenosis [M99.83] INVALID FOR*03/31/2017 Lumbar spondylosis [M47.816] INVALID FOR* Priority: A Neural foraminal stenosis of lumbar spine [M99.*INVALID FOR* Priority: A More... Right lumbar radiculopathy [M54.16] INVALID FOR* Priority: C Status post insertion of drug-eluting stent int*INVALID FOR* Anxiety [F41.9] INVALID FOR* Thoracic or lumbosacral neuritis or radiculitis*INVALID FOR*04/06/2017 Lumbosacral spondylosis without myelopathy [M47*INVALID FOR* Hypertriglyceridemia [E78.1] INVALID FOR*03/31/2017 Rotator cuff syndrome of right shoulder [M75.10*INVALID FOR*04/06/2017 Family history of ischemic heart disease [Z82.4*INVALID FOR* Multiple vessel coronary artery disease [I25.10]INVALID FOR*03/31/2017 Statin intolerance [Z78.9] INVALID FOR* Hypogonadism in male [E29.1] Lumbar stenosis [M48.061] INVALID FOR* 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) [E72.12]INVALID FOR* 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 Cervical radiculopathy [M54.12] INVALID FOR* S/P cervical disc replacement [Z98.890] INVALID FOR* Priority: C Acute postoperative pain [G89.18] INVALID FOR* Priority: D More... Other instructions from your clinician: SINUSITIS: You have sinusitis, an infection of the sinus cavities around the nose. This infection usually follows a respiratory illness; it can also be related to allergies, changes in atmospheric pressure (flying, diving), or anything that blocks nasal drainage. Symptoms include: headache, facial pain, a thick nasal discharge, congestion, and cough. The treatment includes antibiotic therapy, increasing oral fluids, and pain medication if needed. Nose spray decongestants (Afrin, Antony-Synephrine) and oral decongestants may be needed to reduce congestion and drainage. Rarely the sinus must be irrigated to remove the infected material. Sinusitis can lead to serious complications by spreading to other areas such as the eye or brain. Please call your doctor or return here right away if you have any of the following more serious symptoms: - Unusual swelling around the eye or trouble seeing. - Increasing pain, severe headache, or toothache. - Nausea, vomiting, or unusual drowsiness. Prescriptions ordered this encounter Disp Refills Start End AMOXICILLIN 875 MG-POTASSIUM CLAVULA* 20 t* 0 12/12/2017 12/22/2017 Route: ORAL Sig: Take 1 tablet by mouth twice daily for 10 days. Encounter Status:Closed by MARY JO BARRIOS CNP on 12/12/17 PROGRESS Observed: 12/06/2017 Status: COMPLETED Source: [place] 12:44 PM [facility] REPOSITORY HNO ID: [id number] Author: Sajan Cassidy) Meme Service: (none) Author Type: Physician Floor Technician Type: Progress Notes Filed: 12/06/2017 12:51 PM Note Text: Subjective HPI Pt presents with right shoulder pain x 2-3 days. 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 He was told he had some arthritic changes in the past in the shoulder. He denies specific injury. He had a cervical fusion about 3 months ago as well. He used to have cervical radiculopathy but since surgery hasn't had any issues. This does not feel similar. Lifting his arm above his head is most painful. Review of Systems Musculoskeletal: Right shoulder pain All other systems reviewed and are negative. PAST MEDICAL HISTORY Diagnosis Date - Acute gastritis without mention of hemorrhage - ADHD (attention deficit hyperactivity disorder) on Lexapro - ASHD (arteriosclerotic heart disease) 04/05/2012 stent x2, Dr. 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 Riley - Testicular lesion right, s/p removal - Vitamin D insufficiency Current Outpatient Prescriptions: DULoxetine (CYMBALTA) 30 mg capsule Take 30 mg by mouth once daily. 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 ([employer]) Stress, blood sugar, thyroid/hormones/adrenals/sleep/energy/anxiety Take 1 in AM and 1 before bed Disp: Rfl: [address] (Pure Encapsulations) liver/detox support Take 3 capsules daily, in divided doses, between meals. Disp: Rfl: 0 tamsulosin ER (FLOMAX) 0.4 mg cp24 Take 1 capsule by mouth once daily. Disp: 30 capsule Rfl: 11 ezetimibe (ZETIA) 10 mg tablet Take 1 tablet by mouth once daily. Disp: 30 tablet Rfl: 5 aspirin, enteric coated (ADULT LOW DOSE ASPIRIN) 81 mg EC tablet Take 1 tablet by mouth once daily. Disp: Rfl: The Whole Probiotic ([employer]) Take 1 capsule by mouth once daily. Treatment 3-6 months Disp: Rfl: 0 Homocysteine [place] ([employer]) Take 2 capsules by mouth daily with food. Disp: Rfl: 0 B-Complex Plus (Pure Encapsulations) Take 1 capsule by mouth daily with food. Disp: Rfl: 0 ONE [place] (Pure Encapsulation) Take 3 capsules by mouth daily with food. Disp: Rfl: 0 Magnesium Citrate 150mg 90 ct[address] (Pure Encapsulations) Take 3 capsules daily. Disp: Rfl: 0 [employer] Multivitamin (Pure Encapsulations) Take 1 capsule by mouth daily with food. Disp: Rfl: 0 Vitamin D3 Liquid (Pure Encapsulations) Take 3-5 drops daily, with meals Disp: Rfl: 0 predniSONE (DELTASONE) 20 mg tablet Take 1 tablet by mouth twice daily for 5 days. Disp: 10 tablet Rfl: 0 gabapentin (NEURONTIN) 300 mg capsule Take 600 mg by mouth daily at bedtime. Disp: Rfl: escitalopram oxalate (LEXAPRO) 10 mg tablet take 1 tablet by mouth once daily (Patient not taking: Reported on 12/06/2017) Disp: 30 tablet Rfl: 12 No current facility-administered medications for this visit. PAST SURGICAL HISTORY Procedure Laterality Date - CC PCI CORONARY INTERVENT 03/2013 X2 - COLONOSCOP W/ OR W/O [facility] SPEC TA and hyperplastic polyps removed. - COLONOSCOP W/ OR W/O [facility] SPEC 04/13/2017 Colonoscopy - Poor prep - 5 year follow up - COLONOSCOPY W/BX 09/11/11 repeat 5 years - EGD W/O [facility] SPECIMEN W/BX 08/26/07 - HEART SURGERY HX - PAST SURGICAL HISTORY OF removal of right testicle for pre cancer - PAST SURGICAL HISTORY OF 07/26/2006 right lung scrapping and cleaning for impiemia - PAST SURGICAL HISTORY OF remote sinus surgery - PAST SURGICAL HISTORY OF 03/22/2009 microdiscectomy- lumbar - PAST SURGICAL HISTORY OF 05/2009 cerebral meningioma - PAST SURGICAL HISTORY OF 07/2010 Micro discectomy low back - PAST SURGICAL HISTORY OF 07/2013 lumbar discectomy - PAST SURGICAL HISTORY OF Left 04/2015 ankle microfracture, fusion of forefoot - PAST SURGICAL HISTORY OF 2016 L3-L5 revision posterior decompression with TLIF - PAST SURGICAL HISTORY OF 2017 2 level cervical disc replacement - REPAIR ING HERNIA,5+Y/O,REDUCIBL right Hernia repair, inguinal - [facility] N/CARPAL TUNNEL SURG left Carpal tunnel decomp - RE[facility]IAN N/CARPAL TUNNEL SURG Right 12/02/2016 Right carpal tunnel release - TRANSURETHRAL ELEC-SURG PROSTATECTOM 09/2007 - VASECTOMY FAMILY HISTORY Problem Relation Age of Onset - None Mother - Heart Father 80 stents x 2 - Arthritis Father Social History Substance Use Topics - Smoking status: Former Smoker Packs/day: 1.00 Years: 10.00 Types: Cigarettes Quit date: 05/03/1977 - Smokeless tobacco: Never Used - Alcohol use 7.5 oz/week 5 Glasses of Wine (5oz) per week BP 104/66 Pulse 78 Temp 36.3 ?C (97.4 ?F) (Tympanic) Resp 16 Wt 91.6 kg (202 lb) BMI 26.65 kg/m? Objective Physical Exam Constitutional: He is oriented to person, place, and time and well-developed, well-nourished, and in no distress. HENT: Head: Normocephalic and atraumatic. Cardiovascular: Normal rate, regular rhythm and normal heart sounds. Pulmonary/Chest: Effort normal and breath sounds normal. Musculoskeletal: Exam of the right shoulder reveals mild tenderness of the glenohumeral joint. No redness or swelling. No pain on internal or external rotation. When patient has arm fully extended to the side in abduction and lifts at the shoulder has pain past 90 degrees. Normal strength and sensation. . Neurological: He is alert and oriented to person, place, and time. Skin: Skin is warm and dry. Psychiatric: Affect and judgment normal. Nursing note and vitals reviewed. ASSESSMENT/PLAN: 1. Acute pain of right shoulder - ICD9: 719.41, ICD10: M25.511 Pt likely has rotator cuff impingement/strain. Discussed NSAIDs, patient would prefer prednisone d/t Gi upset from NSAIDs. Xray ordered. Pt will return to have this done. Rest, ice. He has follow up in [address] Chu as well. - XR SHOULDER GENERAL 3V OR MORE AP/TRUE AP/OTHER RT Sajan Davila PA-C CNOV Observed: 12/06/2017 Status: COMPLETED Source: [place] 12:15 PM [facility] REPOSITORY Office Visit ([facility]) LILIYA ENCINAS ([id number]) 1950 M Date Time Provider Department 12/06/17 12:15 PM SAJAN DAVILA ([facility]) [facility] During your visit today, we recorded the following information about you: Temperature Pulse Respiration Blood pressure 97.4 degrees 78/minute 16/minute 104/66 Weight 91.6 kg Sajan Davila PA-C 12/06/2017 12:51 PM Signed Subjective HPI Pt presents with right shoulder pain x 2-3 days. 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 He was told he had some arthritic changes in the past in the shoulder. He denies specific injury. He had a cervical fusion about 3 months ago as well. He used to have cervical radiculopathy but since surgery hasn't had any issues. This does not feel similar. Lifting his arm above his head is most painful. Review of Systems Musculoskeletal: Right shoulder pain All other systems reviewed and are negative. PAST MEDICAL HISTORY Diagnosis Date - Acute gastritis without mention of hemorrhage - ADHD (attention deficit hyperactivity disorder) on Lexapro - ASHD (arteriosclerotic heart disease) 04/05/2012 stent x2, Dr. 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 Riley - Testicular lesion right, s/p removal - Vitamin D insufficiency Current Outpatient Prescriptions: DULoxetine (CYMBALTA) 30 mg capsule Take 30 mg by mouth once daily. 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 ([employer]) Stress, blood sugar, thyroid/hormones/adrenals/sleep/energy/anxiety Take 1 in AM and 1 before bed Disp: Rfl: 0 HM Chelate [address] (Pure Encapsulations) liver/detox support Take 3 capsules daily, in divided doses, between meals. Disp: Rfl: 0 tamsulosin ER (FLOMAX) 0.4 mg cp24 Take 1 capsule by mouth once daily. Disp: 30 capsule Rfl: 11 ezetimibe (ZETIA) 10 mg tablet Take 1 tablet by mouth once daily. Disp: 30 tablet Rfl: 5 aspirin, enteric coated (ADULT LOW DOSE ASPIRIN) 81 mg EC tablet Take 1 tablet by mouth once daily. Disp: Rfl: The Whole Probiotic ([employer]) Take 1 capsule by mouth once daily. Treatment 3-6 months Disp: Rfl: 0 Homocysteine [place] ([employer]) Take 2 capsules by mouth daily with food. Disp: Rfl: 0 B-Complex Plus (Pure Encapsulations) Take 1 capsule by mouth daily with food. Disp: Rfl: 0 ONE [place] (Pure Encapsulation) Take 3 capsules by mouth daily with food. Disp: Rfl: 0 Magnesium Citrate 150mg 90 ct[address] (Pure [employer]capsulations) Take 3 capsules daily. Disp: Rfl: 0 [employer] Multivitamin (Pure Encapsulations) Take 1 capsule by mouth daily with food. Disp: Rfl: 0 Vitamin D3 Liquid (Pure Encapsulations) Take 3-5 drops daily, with meals Disp: Rfl: 0 predniSONE (DELTASONE) 20 mg tablet Take 1 tablet by mouth twice daily for 5 days. Disp: 10 tablet Rfl: 0 gabapentin (NEURONTIN) 300 mg capsule Take 600 mg by mouth daily at bedtime. Disp: Rfl: escitalopram oxalate (LEXAPRO) 10 mg tablet take 1 tablet by mouth once daily (Patient not taking: Reported on 12/06/2017) Disp: 30 tablet Rfl: 12 No current facility-administered medications for this visit. PAST SURGICAL HISTORY Procedure Laterality Date - CC PCI CORONARY INTERVENT 03/2013 X2 - COLONOSCOP W/ OR W/O [facility] SPEC TA and hyperplastic polyps removed. - COLONOSCOP W/ OR W/O [facility] SPEC 04/13/2017 Colonoscopy - Poor prep - 5 year follow up - COLONOSCOPY W/BX 09/11/11 repeat 5 years - EGD W/O [facility] SPECIMEN W/BX 08/26/07 - HEART SURGERY HX - PAST SURGICAL HISTORY OF removal of right testicle for pre cancer - PAST SURGICAL HISTORY OF 07/26/2006 right lung scrapping and cleaning for impiemia - PAST SURGICAL HISTORY OF remote sinus surgery - PAST SURGICAL HISTORY OF 03/22/2009 microdiscectomy- lumbar - PAST SURGICAL HISTORY OF 05/2009 cerebral meningioma - PAST SURGICAL HISTORY OF 07/2010 Micro discectomy low back - PAST SURGICAL HISTORY OF 07/2013 lumbar discectomy - PAST SURGICAL HISTORY OF Left 04/2015 ankle microfracture, fusion of forefoot - PAST SURGICAL HISTORY OF 2016 L3-L5 revision posterior decompression with TLIF - PAST SURGICAL HISTORY OF 2018 2 level cervical disc replacement - REPAIR ING HERNIA,5+Y/O,REDUCIBL right Hernia repair, inguinal - REVISE MEDIAN N/CARPAL TUNNEL SURG left Carpal tunnel decomp - REVISE MEDIAN N/CARPAL TUNNEL SURG Right 12/02/2016 Right carpal tunnel release - TRANSURETHRAL ELEC-SURG PROSTATECTOM 09/2007 - VASECTOMY FAMILY HISTORY Problem Relation Age of Onset - None Mother - Heart Father 80 stents x 2 - Arthritis Father Social History Substance Use Topics - Smoking status: Former Smoker Packs/day: 1.00 Years: 10.00 Types: Cigarettes Quit date: 05/03/1977 - Smokeless tobacco: Never Used - Alcohol use 7.5 oz/week 5 Glasses of Wine (5oz) per week BP 104/66 Pulse 78 Temp 36.3 ?C (97.4 ?F) (Tympanic) Resp 16 Wt 91.6 kg (202 lb) BMI 26.65 kg/m? Objective Physical Exam Constitutional: He is oriented to person, place, and time and well-developed, well-nourished, and in no distress. HENT: Head: Normocephalic and atraumatic. Cardiovascular: Normal rate, regular rhythm and normal heart sounds. Pulmonary/Chest: Effort normal and breath sounds normal. Musculoskeletal: Exam of the right shoulder reveals mild tenderness of the glenohumeral joint. No redness or swelling. No pain on internal or external rotation. When patient has arm fully extended to the side in abduction and lifts at the shoulder has pain past 90 degrees. Normal strength and sensation. . Neurological: He is alert and oriented to person, place, and time. Skin: Skin is warm and dry. Psychiatric: Affect and judgment normal. Nursing note and vitals reviewed. ASSESSMENT/PLAN: 1. Acute pain of right shoulder - ICD9: 719.41, ICD10: M25.511 Pt likely has rotator cuff impingement/strain. Discussed NSAIDs, patient would prefer prednisone d/t Gi upset from NSAIDs. Xray ordered. Pt will return to have this done. Rest, ice. He has follow up in [address] Chu as well. - XR SHOULDER GENERAL 3V OR MORE AP/TRUE AP/OTHER RT MANJIT MurilloC Referring Provider: SELF [200] Allergies As of Date: 12/06/2017 (No Known Allergies) Date Reviewed: 12/06/2017 Reviewed by: Lauren Hardin Ma - Fully Assessed Reason for Visit: Pain (Shoulder Pain) [1343] Cmt: right shoulder x 2 days Primary Visit Diagnosis:Acute pain of right shoulder [M25.511] Order(s):XR SHOULDER GENERAL 3V OR MORE AP/TRUE AP/OTHER RT [[id number]] Order #: [id number] FUTURE predniSONE (DELTASONE) 20 mg tabletTake 1 tablet by mouth twice daily for 5 days.Disp: 10 tabletRfl: 0 Prescriptions as of 12/06/2017 Sig: DULOXETINE 30 MG CAPSULE,DAMION* Take 30 mg by mouth once valentin* OTC NUTRITIONAL SUPPLEMENT 5 mg twice per day OTC NUTRITIONAL SUPPLEMENT Take 1 in AM and 1 before bed OTC NUTRITIONAL SUPPLEMENT Take 3 capsules daily, in div* TAMSULOSIN 0.4 MG CAPSULE Take 1 capsule by mouth once * EZETIMIBE 10 MG TABLET Take 1 tablet by mouth once d* ASPIRIN 81 MG TABLET,DELAYED * Take 1 tablet by mouth once d* OTC NUTRITIONAL SUPPLEMENT Take 1 capsule by mouth once * OTC NUTRITIONAL SUPPLEMENT Take 2 capsules by mouth valentin* OTC NUTRITIONAL SUPPLEMENT Take 1 capsule by mouth daily* OTC NUTRITIONAL SUPPLEMENT Take 3 capsules by mouth valentin* OTC NUTRITIONAL SUPPLEMENT Take 3 capsules daily. OTC NUTRITIONAL SUPPLEMENT Take 1 capsule by mouth daily* OTC NUTRITIONAL SUPPLEMENT Take 3-5 drops daily, with me* PREDNISONE 20 MG TABLET Take 1 tablet by mouth twice * GABAPENTIN 300 MG CAPSULE Take 600 mg by mouth daily at* ESCITALOPRAM 10 MG TABLET take 1 tablet by mouth once d* Patient not taking: Reported on 12/06/2017 Problem List As Of Date 12/06/2017 Noted Resolved PERS HX TOBACCO USE [Z87.891] INVALID FOR* Abdominal pain, epigastric [R10.13] INVALID FOR*02/18/2010 Attention deficit disorder with hyperactivity [*INVALID FOR* NOCTURIA [R35.1] INVALID FOR* Pain in soft tissues of limb [M79.609] INVALID FOR*02/18/2010 Empyema without mention of fistula [J86.9] INVALID FOR*03/31/2017 Pain in joint, shoulder region [M25.519] INVALID FOR*04/06/2017 Esophagitis, unspecified [K20.9] INVALID FOR*04/06/2017 Acute gastritis without mention of hemorrhage [*INVALID FOR*03/31/2017 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 Tear of medial cartilage or meniscus of knee, c*INVALID FOR*04/06/2017 Lumbar radiculopathy [M54.16] INVALID FOR* ED (erectile dysfunction) [N52.9] INVALID FOR* Low testosterone [E34.9] INVALID FOR*03/31/2017 Benign neoplasm of colon [D12.6] INVALID FOR*03/31/2017 SUMMARY [V999.95] INVALID FOR* More... Unstable angina [I20.0] INVALID FOR*07/12/2012 Priority: A More... Hyperlipidemia [E78.5] INVALID FOR* Priority: C More... Sinus infection [J32.9] INVALID FOR*12/12/2011 More... Need for prophylactic measure [Z29.9] INVALID FOR*03/31/2017 More... Tubular adenoma of colon [D12.6] INVALID FOR* Presence of drug coated stent in posterior desc*INVALID FOR* ASCVD (arteriosclerotic cardiovascular disease)*INVALID FOR*03/31/2017 ASHD (arteriosclerotic heart disease) [I25.10] INVALID FOR* Right carpal tunnel syndrome [G56.01] INVALID FOR*04/06/2017 CAD (coronary artery disease) [I25.10] INVALID FOR* Priority: E More... Hypertension [I10] INVALID FOR* Diarrhea [R19.7] INVALID FOR*03/31/2017 More... Non-ST elevation myocardial infarction (NSTEMI)*INVALID FOR* More... Presence of drug coated stent in left circumfle*INVALID FOR* Lumbar foraminal stenosis [M99.83] INVALID FOR*03/31/2017 Lumbar spondylosis [M47.816] INVALID FOR* Priority: A Neural foraminal stenosis of lumbar spine [M99.*INVALID FOR* Priority: A More... Right lumbar radiculopathy [M54.16] INVALID FOR* Priority: C Status post insertion of drug-eluting stent int*INVALID FOR* Anxiety [F41.9] INVALID FOR* Thoracic or lumbosacral neuritis or radiculitis*INVALID FOR*04/06/2017 Lumbosacral spondylosis without myelopathy [M47*INVALID FOR* Hypertriglyceridemia [E78.1] INVALID FOR*03/31/2017 Rotator cuff syndrome of right shoulder [M75.10*INVALID FOR*04/06/2017 Family history of ischemic heart disease [Z82.4*INVALID FOR* Multiple vessel coronary artery disease [I25.10]INVALID FOR*03/31/2017 Statin intolerance [Z78.9] INVALID FOR* Hypogonadism in male [E29.1] Lumbar stenosis [M48.061] INVALID FOR* 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) [E72.12]INVALID FOR* 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 Cervical radiculopathy [M54.12] INVALID FOR* S/P cervical disc replacement [Z98.890] INVALID FOR* Priority: C Acute postoperative pain [G89.18] INVALID FOR* Priority: D More... Prescriptions ordered this encounter Disp Refills Start End PREDNISONE 20 MG TABLET 10 t* 0 12/06/2017 12/11/2017 Route: ORAL Sig: Take 1 tablet by mouth twice daily for 5 days. Encounter Status:Closed by SAJAN DAVILA PA-C on 12/06/17 PROGRESS Observed: 10/27/2017 Status: COMPLETED Source: [place] 9:32 AM [facility] REPOSITORY HNO ID: [id number] Author: Nafisa Riley Service: (none) Author Type: Physician Type: Progress Notes Filed: 10/27/2017 9:39 AM Note Text: VV with Mr. Encinas this am He is still having leg and back issues xrays show hardware in good placement MRI with no nerve compression where we operated moderate lateral recess stenosis at L2/3 he is having this pain in his thighs will try an VERÓNICA at L2/3 he is scheduled for caudal injection as well He is doing mechanical therapy as well Cymbalata is helping he will send a mychart in a while to check in, if still sympotmatic will order a CT lumbar Nafisa Riley MD CNCO Observed: 10/27/2017 Status: COMPLETED Source: [place] 12:00 AM [facility] REPOSITORY Letter Text Nafisa Riley M.D. Stapling Machine Operator, Department of Neurosurgery [address] [facility], [address] [place] [address] Office: October 27, 2017 Re: Liliya Encinas CC #: [id number] Attn: Dr. Henok Mejias Dear Dr. Mejias, Mr. Liliya Encinas is a patient of mine in the [facility]. I had a virtual visit with Mr. Encinas this morning, 10/27/17. ?His MRI demonstrates worsening lateral recess stenosis at L2/3. ?He states his thighs have significant pain. ?Would you please consider as part of his treatment and potential diagnosis an L2/3 translaminar VERÓNICA. If you require anything further, please contact my office at phone number above. Sincerely, [electronically signed to expedite receipt] Nafisa Riley M.D. pat PROGRESS Observed: 10/21/2017 Status: COMPLETED Source: [place] 3:11 PM [facility] REPOSITORY HNO ID: [id number] Author: Zoey Dobbs Ma Service: (none) Author Type: (none) Type: Progress Notes Filed: 10/21/2017 3:14 PM Note Text: Pt left without being seen. He wishes to make appt with Dr. Rodríguez at [facility]. Zoey Dobbs Ma CNOV Observed: 10/21/2017 Status: COMPLETED Source: [place] 2:30 PM [facility] REPOSITORY Office Visit (UROLWS) HUANGLILIYA AHUMADA ([id number]) 1950 M Date Time Provider Department 10/21/17 2:30 PM CARMELLA DARBY) UROLWS During your visit today, we recorded the following information about you: Pulse Blood pressure Weight Height 64/minute 108/60 92.5 kg 1.854 m Zoey Dobbs Ma 10/21/2017 3:14 PM Signed Pt left without being seen. He wishes to make appt with Dr. Rodríguez at [facility]. Zoey Dobbs Ma Referring Provider: LISA ROSADO) [[id number]] Allergies As of Date: 10/21/2017 (No Known Allergies) Date Reviewed: 10/21/2017 Reviewed by: Zoey Dobbs Ma - Fully Assessed Reason for Visit: New Patient [172] bph symptoms [Other] Primary Visit Diagnosis:BPH with urinary obstruction [N40.1, N13.8] Prescriptions as of 10/21/2017 Sig: OTC NUTRITIONAL SUPPLEMENT 5 mg twice per day OTC NUTRITIONAL SUPPLEMENT Take 1 in AM and 1 before bed OTC NUTRITIONAL SUPPLEMENT Take 3 capsules daily, in div* TAMSULOSIN 0.4 MG CAPSULE Take 1 capsule by mouth once * EZETIMIBE 10 MG TABLET Take 1 tablet by mouth once d* GABAPENTIN 300 MG CAPSULE Take 600 mg by mouth daily at* ASPIRIN 81 MG TABLET,DELAYED * Take 1 tablet by mouth once d* OTC NUTRITIONAL SUPPLEMENT Take 1 capsule by mouth once * OTC NUTRITIONAL SUPPLEMENT Take 2 capsules by mouth valentin* OTC NUTRITIONAL SUPPLEMENT Take 1 capsule by mouth daily* ESCITALOPRAM 10 MG TABLET take 1 tablet by mouth once d* OTC NUTRITIONAL SUPPLEMENT Take 3 capsules by mouth valentin* OTC NUTRITIONAL SUPPLEMENT Take 3 capsules daily. OTC NUTRITIONAL SUPPLEMENT Take 1 capsule by mouth daily* OTC NUTRITIONAL SUPPLEMENT Take 3-5 drops daily, with me* Problem List As Of Date 10/21/2017 Noted Resolved PERS HX TOBACCO USE [Z87.891] INVALID FOR* Abdominal pain, epigastric [R10.13] INVALID FOR*02/18/2010 Attention deficit disorder with hyperactivity [*INVALID FOR* NOCTURIA [R35.1] INVALID FOR* Pain in soft tissues of limb [M79.609] INVALID FOR*02/18/2010 Empyema without mention of fistula [J86.9] INVALID FOR*03/31/2017 Pain in joint, shoulder region [M25.519] INVALID FOR*04/06/2017 Esophagitis, unspecified [K20.9] INVALID FOR*04/06/2017 Acute gastritis without mention of hemorrhage [*INVALID FOR*03/31/2017 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 Tear of medial cartilage or meniscus of knee, c*INVALID FOR*04/06/2017 Lumbar radiculopathy [M54.16] INVALID FOR* ED (erectile dysfunction) [N52.9] INVALID FOR* Low testosterone [E34.9] INVALID FOR*03/31/2017 Benign neoplasm of colon [D12.6] INVALID FOR*03/31/2017 SUMMARY [V999.95] INVALID FOR* More... Unstable angina [I20.0] INVALID FOR*07/12/2012 Priority: A More... Hyperlipidemia [E78.5] INVALID FOR* Priority: C More... Sinus infection [J32.9] INVALID FOR*12/12/2011 More... Need for prophylactic measure [Z29.9] INVALID FOR*03/31/2017 More... Tubular adenoma of colon [D12.6] INVALID FOR* Presence of drug coated stent in posterior desc*INVALID FOR* ASCVD (arteriosclerotic cardiovascular disease)*INVALID FOR*03/31/2017 ASHD (arteriosclerotic heart disease) [I25.10] INVALID FOR* Right carpal tunnel syndrome [G56.01] INVALID FOR*04/06/2017 CAD (coronary artery disease) [I25.10] INVALID FOR* Priority: E More... Hypertension [I10] INVALID FOR* Diarrhea [R19.7] INVALID FOR*03/31/2017 More... Non-ST elevation myocardial infarction (NSTEMI)*INVALID FOR* More... Presence of drug coated stent in left circumfle*INVALID FOR* Lumbar foraminal stenosis [M99.83] INVALID FOR*03/31/2017 Lumbar spondylosis [M47.816] INVALID FOR* Priority: A Neural foraminal stenosis of lumbar spine [M99.*INVALID FOR* Priority: A More... Right lumbar radiculopathy [M54.16] INVALID FOR* Priority: C Status post insertion of drug-eluting stent int*INVALID FOR* Anxiety [F41.9] INVALID FOR* Thoracic or lumbosacral neuritis or radiculitis*INVALID FOR*04/06/2017 Lumbosacral spondylosis without myelopathy [M47*INVALID FOR* Hypertriglyceridemia [E78.1] INVALID FOR*03/31/2017 Rotator cuff syndrome of right shoulder [M75.10*INVALID FOR*04/06/2017 Family history of ischemic heart disease [Z82.4*INVALID FOR* Multiple vessel coronary artery disease [I25.10]INVALID FOR*03/31/2017 Statin intolerance [Z78.9] INVALID FOR* Hypogonadism in male [E29.1] Lumbar stenosis [M48.061] INVALID FOR* 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) [E72.12]INVALID FOR* 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 PROGRESS Observed: 09/29/2017 Status: COMPLETED Source: [place] 8:21 AM [facility] REPOSITORY O ID: [id number] Author: Lisa Patel) Ashlee Service: (none) Author Type: Physician Type: Progress Notes Filed: 09/29/2017 10:42 AM Note Text: Chief Complaint Patient presents with: Physical HPI Liliya Encinas is a 67 year old male who presents here today for annual physical exam. Since last OV, patient has had cervical disc replacement performed by Dr Riley about 6 weeks ago and has followed up with cardiology where they discussed restarting ASA and trying newer statin vs zetia/fibrate/niacin/PCSK9. Patient following up with functional medicine to lower cholesterol, but total cholesterol and LDL still elevated. Would like to start medication at this time, but doesn't want to try the PCSK9 due to cost. Failed Crestor, simvastatin, pravastatin, atorvastatin due to myalgias. Discussed Zetia which he is agreeable to try. Patient states that pain in his arms bilaterally and weakness in right arm have improved since his cervical spine surgery. Following up with Dr. Riley later today. Still having pain in his lower back even though he had lumbar fusion more than a year ago. Requesting referral to urology for evaluation and discussion of repeat TURP. Complaining of nocturia, weak stream, straining to urinate. Denies hematuria. Taking flomax as prescribed without improvement. Told after last TURP 10 years ago he would require repeat in 10-15 years. Refusing rectal exam today, just wants referral. Requesting refill on Flomax. Patient taking medications as prescribed without side effects. Up to date on . Requesting new shingles vaccine, shingrix, today. Discussed insurance, possible costs, and side effects. Reviewed recent labs. Past medical history, appointments, medications, allergies reviewed. Previous Medical History PAST MEDICAL HISTORY Diagnosis Date - Acute gastritis without mention of hemorrhage - ADHD (attention deficit hyperactivity disorder) - ASHD (arteriosclerotic heart disease) 04/05/2012 stent x2, Dr. Brown - Benign neoplasm of colon - BPH (benign prostatic hyperplasia) TURP - CTS (carpal tunnel syndrome) - Dyslipidemia - Empyema without mention of fistula 07/26/2006 - Enthesopathy of hip region - Esophagitis, unspecified - Fracture ribs on left, finger, clavicle - Heterozygous MTHFR mutation C677T ([facility]) 01/18/2017 - Hypertension 07/12/2012 - Hypogonadism in male - Insomnia, unspecified - Myalgia and myositis, unspecified - Non-ST elevation myocardial infarction (NSTEMI), initial episode of care ([facility]) 10/27/2013 x2 - PMH - PAST MEDICAL HISTORY OF depression - Shingles - Spinal stenosis Seeing Dr. Riley - Testicular lesion right, s/p removal - Vitamin D insufficiency Previous Surgical History PAST SURGICAL HISTORY Procedure Laterality Date - CC PCI CORONARY INTERVENT 03/2013 X2 - COLONOSCOP W/ OR W/O [facility] SPEC TA and hyperplastic polyps removed. - COLONOSCOP W/ OR W/O [facility] SPEC 04/13/2017 Colonoscopy - Poor prep - 5 year follow up - COLONOSCOPY W/BX 09/11/11 repeat 5 years - EGD W/O [facility] SPECIMEN W/BX 08/26/07 - HEART SURGERY HX - PAST SURGICAL HISTORY OF removal of right testicle for pre cancer - PAST SURGICAL HISTORY OF 07/26/2006 right lung scrapping and cleaning for impiemia - PAST SURGICAL HISTORY OF remote sinus surgery - PAST SURGICAL HISTORY OF 03/22/2009 microdiscectomy- lumbar - PAST SURGICAL HISTORY OF 05/2009 cerebral meningioma - PAST SURGICAL HISTORY OF 07/2010 Micro discectomy low back - PAST SURGICAL HISTORY OF 07/2013 lumbar discectomy - PAST SURGICAL HISTORY OF Left 04/2015 ankle microfracture, fusion of forefoot - PAST SURGICAL HISTORY OF 2016 L3-L5 revision posterior decompression with TLIF - REPAIR ING HERNIA,5+Y/O,REDUCIBL right Hernia repair, inguinal - REVISE MEDIAN N/CARPAL TUNNEL SURG left Carpal tunnel decomp - REVISE MEDIAN N/CARPAL TUNNEL SURG Right 12/02/2016 Right carpal tunnel release - TRANSURETHRAL ELEC-SURG PROSTATECTOM 09/2007 - VASECTOMY Family History FAMILY HISTORY Problem Relation Age of Onset - None Mother - Heart Father 80 stents x 2 - Arthritis Father Patient Allergies ALLERGIES Allergen Reactions - Seasonal Allergies Other: See Comments Current Medications Current Outpatient Prescriptions on File Prior to Visit: gabapentin (NEURONTIN) 300 mg capsule Take 600 mg by mouth daily at bedtime. diclofenac, EC, (VOLTAREN) 75 mg EC tablet Take 1 tablet by mouth twice daily. For pain/inflammation. Take with food. tamsulosin ER (FLOMAX) 0.4 mg cp24 Take 1 capsule by mouth once daily for 14 days. docusate sodium (COLACE) 100 mg capsule Take 1 capsule by mouth twice daily. (Patient not taking: Reported on 09/15/2017 ) senna (SENOKOT) 8.6 mg tab Take 2 tablets by mouth once daily as needed (Constipation). (Patient not taking: Reported on 09/15/2017 ) benzocaine-menthol (CEPACOL) 15-3.6 mg lozg Use 1 Lozenge as instructed every 2 hours as needed (Sore throat). (Patient not taking: Reported on 09/15/2017 ) pantoprazole DR (PROTONIX) 40 mg tablet Take 1 tablet by mouth DAILY (6 AM) for 13 doses. methocarbamol (ROBAXIN) 750 mg tablet Take 1 tablet by mouth every 6 hours as needed (Muscle spasms / pain). (Patient not taking: Reported on 09/15/2017 ) aspirin, enteric coated (ADULT LOW DOSE ASPIRIN) 81 mg EC tablet Take 1 tablet by mouth once daily. The Whole Probiotic ([employer]) Take 1 capsule by mouth once daily. Treatment 3-6 months Homocysteine [place] (OrdrIt) Take 2 capsules by mouth daily with food. B-Complex Plus (Pure Encapsulations) Take 1 capsule by mouth daily with food. escitalopram oxalate (LEXAPRO) 10 mg tablet take 1 tablet by mouth once daily ONE [place] (Pure Encapsulation) Take 3 capsules by mouth daily with food. Magnesium Citrate 150mg [address] ct[address] (Pure Encapsulations) Take 3 capsules daily. [employer] Multivitamin (Pure Encapsulations) Take 1 capsule by mouth daily with food. Vitamin D3 Liquid (Pure Encapsulations) Take 3-5 drops daily, with meals No current facility-administered medications on file prior to visit. Social History Social History Marital status: Spouse name: Steph Years of education: Number of children: 5 Occupational History Occupation Employer Comment [employer] Social History Main Topics Smoking status: Former Smoker Packs/day: 1.00 Years: 10.00 Types: Cigarettes Quit date: 05/03/1977 Smokeless tobacco: Never Used Alcohol use: Yes 7.5 oz/week Glasses of Wine (5oz): 5 per week Drug use: No Review of Symptoms REVIEW OF SYSTEMS GENERAL: No weight loss, malaise or fevers HEENT: Negative for frequent or significant headaches, No changes in hearing or vision, no nose bleeds or other nasal problems NECK: Negative for lumps, goiter, pain and significant neck swelling RESPIRATORY: Negative for cough, hemoptysis, wheezing, COPD, dyspnea or shortness of breath CARDIOVASCULAR: Negative for chest pain, leg swelling, hypertension, CHF or palpitations GI: No nausea, vomiting, or diarrhea : See HPI MUSCULOSKELETAL: Negative for joint pain or swelling, back pain or muscle pain SKIN: Negative for lesions, rash, and itching EXAM: BP 118/68 (BP Site: Left Arm, BP Position: Sitting, BP Cuff Size: Regular Adult) Pulse 64 Resp 16 Ht 185.4 cm (6' 1) Wt 91.2 kg (201 lb) BMI 26.52 kg/m? General Appearance: Well appearing, alert, in no acute distress, well-hydrated, well nourished.. Skin: Skin color, texture, turgor normal, no suspicious rashes or lesions. Head: Normocephalic, no masses, lesions, tenderness or abnormalities. Eyes: Anicteric sclera. Pupils are equally round and reactive to light. Extraocular movements are intact. . Ears: External ears normal, canals clear. Oropharynx: Lips, mucosa, and tongue normal, teeth and gums normal, oropharynx normal. Neck: Supple, no adenopathy; thyroid symmetric, normal size, no bruits. Lungs: Lungs clear to auscultation. No wheezing, rhonchi, rales. Heart: RRR without murmur, gallop, or rubs. No ectopy. Abdomen: Normal abdominal exam, Abdomen soft, non-tender. Bowel sounds normal. No masses, organomegaly. Extremities: No deformities, edema, skin discoloration, clubbing or cyanosis. Good capillary refill. . Health Maintenance List PNEUMOVAX AGE 65 AND OVER WITH 5YR LOOKBACK(1) due on 02/08/2017 DTAP,TDAP,TD(2 - Td) due on 04/18/2018 DIABETES SCREEN due on 09/24/2020 COLORECTAL CANCER SCREENING,SEE MODIFIER due on 04/13/2022 LIPID SCREEN due on 09/24/2022 PROSTATE CANCER SCREENING DISCUSSION Completed ADULT PREVNAR-13 Completed INFLUENZA Completed HEPATITIS C SCREENING Completed Data reviewed Component Latest Ref Rng AND Units 08/11/2017 09/24/2017 WBC 3.70 - 11.00 k/uL 6.32 RBC 4.20 - 6.00 m/uL 3.91 (L) Hemoglobin 13.0 - 17.0 g/dL 12.0 (L) Hematocrit 39.0 - 51.0 % 35.7 (L) MCV 80.0 - 100.0 fL 91.3 MCH 26.0 - 34.0 pG 30.7 MCHC 30.5 - 36.0 g/dL 33.6 RDW-CV 11.5 - 15.0 % 12.7 Platelet Count 150 - 400 k/uL 172 MPV 9.0 - 12.7 fL 10.0 Neut% % 61.3 Abs Neut (ANC) 1.45 - 7.50 k/uL 3.85 Lymph% % 22.3 Abs Lymph 1.00 - 4.00 k/uL 1.41 [place]% % 11.2 Abs [place] <0.87 k/uL 0.71 Eosin% % 4.1 Abs Eosin <0.46 k/uL 0.26 Baso% % 1.1 Abs Baso <0.11 k/uL 0.07 Nucleated Reds 0 /100 WBC 0.0 Absolute nRBC <0.01 k/uL <0.01 Diff Type Auto Diff Albumin 3.9 - 4.9 g/dL 3.5 (L) Calcium 8.5 - 10.2 mg/dL 8.5 Phosphorus 2.7 - 4.8 mg/dL 3.4 Glucose 74 - 99 mg/dL 124 (H) BUN 9 - 24 mg/dL 11 Creatinine 0.73 - 1.22 mg/dL 0.91 Sodium 136 - 144 mmol/L 142 Potassium 3.7 - 5.1 mmol/L 4.2 Chloride 97 - 105 mmol/L 104 CO2 22 - 30 mmol/L 26 Anion Gap 9 - 18 mmol/L 12 eGFR- >60 eGFR-All Other Races . >60 Cholesterol, Total <200 mg/dL 231 (H) Triglyceride <150 mg/dL 114 HDL Cholesterol >39 mg/dL 69 LDL Cholesterol <100 mg/dL 139 (H) Non HDL Cholesterol <130 mg/dL 162 (H) Fasting Time hrs 15 VLDL Cholesterol <30 mg/dL 23 TC:HDL Ratio <5.10 3.35 LDL:HDL Ratio <2.54 2.01 Hemoglobin A1C 4.3 - 5.6 % 5.3 Estimated Average Glucose mg/dL 105 Magnesium 1.7 - 2.3 mg/dL 1.9 Homocysteine, Serum <15.1 umol/L 10.2 MMA 79 - 376 nmol/L 147 Vitamin D 25 Hydroxy 31.0 - 80.0 ng/mL 39.7 ASSESSMENT/PLAN: 1. Annual physical exam - ICD9: V70.0, ICD10: Z00.00 (primary diagnosis) - Recommended regular aerobic exercise. - Discussed need and benefit for weight loss. BMI 26.52 kg/(m2) - Vaccination(s) recommended today: Shingrix - Follow up for annual exam in one year. - ZOSTER VACC RECOMBINANT,IM 2. Cervical radiculopathy - ICD9: 723.4, ICD10: M54.12 Symptoms improved s/p surgery. Following up with Dr. Riley later today. 3. Neural foraminal stenosis of lumbar spine - ICD9: 724.02, ICD10: M99.83 Still having pain in LE. Has follow up with ortho spine today to further discuss surgical options vs pain management. 4. Coronary artery disease involving tunica-biloxi coronary artery of tunica-biloxi heart without angina pectoris - ICD9: 414.01, ICD10: I25.10 Will start patient on Zetia as he is intolerant to all statins and wanted something cheaper than PCSK9 medications. Discussed healthy diet and exercise. Keep f/u appointment as scheduled with cardiology. 5. Mixed hyperlipidemia - ICD9: 272.2, ICD10: E78.2 - poor control - Begin treatment with ezetimibe (Zetia) 10 mg - Encouraged following a low fat, low cholesterol diet. - Discussed the benefits of regular aerobic exercise and weight loss. - EZETIMIBE 10 MG TABLET 6. Essential hypertension - ICD9: 401.9, ICD10: I10 - good control - Continue current medication(s) - Encouraged dietary sodium restriction/DASH diet - Recommended regular aerobic exercise. - Reviewed risks of HTN and principles of treatment - Goal of BP <140/90 7. ASHD (arteriosclerotic heart disease) - ICD9: 414.00, ICD10: I25.10 See above 8. Statin intolerance - ICD9: 995.27, ICD10: Z78.9 See above, start zetia. 9. Attention deficit disorder with hyperactivity - ICD9: 314.01, ICD10: F90.9 Controlled on Lexapro. 10. Benign prostatic hyperplasia with nocturia - ICD9: 600.01, 788.43, ICD10: N40.1, R35.1 Refill flomax, refer to urology. Refusing rectal exam today. - TAMSULOSIN 0.4 MG CAPSULE - CONSULT TO UROLOGY 11. Normocytic anemia - ICD9: 285.9, ICD10: D64.9 Found after cervical spine procedure. Will repeat and call with results. If worsening or stable will work up with FOBT and additional blood work to rule out iron/vitamin deficiencies. - CBC + DIFF 12. 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 No complaints of bleeding/clotting. Lisa Rosado MD CNOV Observed: 09/29/2017 Status: COMPLETED Source: [place] 8:20 AM [facility] REPOSITORY [facility] LILIYA [facility]NC[facility]AS ([id number]) 1950 M Date Time Provider Department 09/29/17 8:20 AM LISA ROSADO) FAMPWS During your visit today, we recorded the following information about you: Pulse Respiration Blood pressure Weight 64/minute 16/minute 118/68 91.2 kg Height 1.854 m Lisa Rosado MD 09/29/2017 10:42 AM Signed Chief Complaint Patient presents with: Physical HPI Liliya Encinas is a 67 year old male who presents here today for annual physical exam. Since last OV, patient has had cervical disc replacement performed by Dr Riley about 6 weeks ago and has followed up with cardiology where they discussed restarting ASA and trying newer statin vs zetia/fibrate/niacin/PCSK9. Patient following up with functional medicine to lower cholesterol, but total cholesterol and LDL still elevated. Would like to start medication at this time, but doesn't want to try the PCSK9 due to cost. Failed Crestor, simvastatin, pravastatin, atorvastatin due to myalgias. Discussed Zetia which he is agreeable to try. Patient states that pain in his arms bilaterally and weakness in right arm have improved since his cervical spine surgery. Following up with Dr. Riley later today. Still having pain in his lower back even though he had lumbar fusion more than a year ago. Requesting referral to urology for evaluation and discussion of repeat TURP. Complaining of nocturia, weak stream, straining to urinate. Denies hematuria. Taking flomax as prescribed without improvement. Told after last TURP 10 years ago he would require repeat in 10-15 years. Refusing rectal exam today, just wants referral. Requesting refill on Flomax. Patient taking medications as prescribed without side effects. Up to date on . Requesting new shingles vaccine, shingrix, today. Discussed insurance, possible costs, and side effects. Reviewed recent labs. Past medical history, appointments, medications, allergies reviewed. Previous Medical History PAST MEDICAL HISTORY Diagnosis Date - Acute gastritis without mention of hemorrhage - ADHD (attention deficit hyperactivity disorder) - ASHD (arteriosclerotic heart disease) 04/05/2012 stent x2, Dr. Brown - Benign neoplasm of colon - BPH (benign prostatic hyperplasia) TURP - CTS (carpal tunnel syndrome) - Dyslipidemia - Empyema without mention of fistula 07/26/2006 - Enthesopathy of hip region - Esophagitis, unspecified - Fracture ribs on left, finger, clavicle - Heterozygous MTHFR mutation C677T ([facility]) 01/18/2017 - Hypertension 07/12/2012 - Hypogonadism in male - Insomnia, unspecified - Myalgia and myositis, unspecified - Non-ST elevation myocardial infarction (NSTEMI), initial episode of care ([facility]) 10/27/2013 x2 - PMH - PAST MEDICAL HISTORY OF depression - Shingles - Spinal stenosis Seeing Dr. Riley - Testicular lesion right, s/p removal - Vitamin D insufficiency Previous Surgical History PAST SURGICAL HISTORY Procedure Laterality Date - CC PCI CORONARY INTERVENT 03/2013 X2 - COLONOSCOP W/ OR W/O [facility] SPEC TA and hyperplastic polyps removed. - COLONOSCOP W/ OR W/O [facility] SPEC 04/13/2017 Colonoscopy - Poor prep - 5 year follow up - COLONOSCOPY W/BX 09/11/11 repeat 5 years - EGD W/O [facility] SPECIMEN W/BX 08/26/07 - HEART SURGERY HX - PAST SURGICAL HISTORY OF removal of right testicle for pre cancer - PAST SURGICAL HISTORY OF 07/26/2006 right lung scrapping and cleaning for impiemia - PAST SURGICAL HISTORY OF remote sinus surgery - PAST SURGICAL HISTORY OF 03/22/2009 microdiscectomy- lumbar - PAST SURGICAL HISTORY OF 05/2009 cerebral meningioma - PAST SURGICAL HISTORY OF 07/2010 Micro discectomy low back - PAST SURGICAL HISTORY OF 07/2013 lumbar discectomy - PAST SURGICAL HISTORY OF Left 04/2015 ankle microfracture, fusion of forefoot - PAST SURGICAL HISTORY OF 2016 L3-L5 revision posterior decompression with TLIF - REPAIR ING HERNIA,5+Y/O,REDUCIBL right Hernia repair, inguinal - REVISE MEDIAN N/CARPAL TUNNEL SURG left Carpal tunnel decomp - REVISE MEDIAN N/CARPAL TUNNEL SURG Right 12/02/2016 Right carpal tunnel release - TRANSURETHRAL ELEC-SURG PROSTATECTOM 09/2007 - VASECTOMY Family History FAMILY HISTORY Problem Relation Age of Onset - None Mother - Heart Father 80 stents x 2 - Arthritis Father Patient Allergies ALLERGIES Allergen Reactions - Seasonal Allergies Other: See Comments Current Medications Current Outpatient Prescriptions on File Prior to Visit: gabapentin (NEURONTIN) 300 mg capsule Take 600 mg by mouth daily at bedtime. diclofenac, EC, (VOLTAREN) 75 mg EC tablet Take 1 tablet by mouth twice daily. For pain/inflammation. Take with food. tamsulosin ER (FLOMAX) 0.4 mg cp24 Take 1 capsule by mouth once daily for 14 days. docusate sodium (COLACE) 100 mg capsule Take 1 capsule by mouth twice daily. (Patient not taking: Reported on 09/15/2017 ) senna (SENOKOT) 8.6 mg tab Take 2 tablets by mouth once daily as needed (Constipation). (Patient not taking: Reported on 09/15/2017 ) benzocaine-menthol (CEPACOL) 15-3.6 mg lozg Use 1 Lozenge as instructed every 2 hours as needed (Sore throat). (Patient not taking: Reported on 09/15/2017 ) pantoprazole DR (PROTONIX) 40 mg tablet Take 1 tablet by mouth DAILY (6 AM) for 13 doses. methocarbamol (ROBAXIN) 750 mg tablet Take 1 tablet by mouth every 6 hours as needed (Muscle spasms / pain). (Patient not taking: Reported on 09/15/2017 ) aspirin, enteric coated (ADULT LOW DOSE ASPIRIN) 81 mg EC tablet Take 1 tablet by mouth once daily. The Whole Probiotic ([employer]) Take 1 capsule by mouth once daily. Treatment 3-6 months Homocysteine [place] (OrdrIt) Take 2 capsules by mouth daily with food. B-Complex Plus (Pure Encapsulations) Take 1 capsule by mouth daily with food. escitalopram oxalate (LEXAPRO) 10 mg tablet take 1 tablet by mouth once daily ONE [place] (Pure Encapsulation) Take 3 capsules by mouth daily with food. Magnesium Citrate 150mg 90 ct[address] (Pure Encapsulations) Take 3 capsules daily. [employer] Multivitamin (Pure Encapsulations) Take 1 capsule by mouth daily with food. Vitamin D3 Liquid (Pure Encapsulations) Take 3-5 drops daily, with meals No current facility-administered medications on file prior to visit. Social History Social History Marital status: Spouse name: Steph Years of education: Number of children: 5 Occupational History Occupation Employer Comment [employer] Social History Main Topics Smoking status: Former Smoker Packs/day: 1.00 Years: 10.00 Types: Cigarettes Quit date: 05/03/1977 Smokeless tobacco: Never Used Alcohol use: Yes 7.5 oz/week Glasses of Wine (5oz): 5 per week Drug use: No Review of Symptoms REVIEW OF SYSTEMS GENERAL: No weight loss, malaise or fevers HEENT: Negative for frequent or significant headaches, No changes in hearing or vision, no nose bleeds or other nasal problems NECK: Negative for lumps, goiter, pain and significant neck swelling RESPIRATORY: Negative for cough, hemoptysis, wheezing, COPD, dyspnea or shortness of breath CARDIOVASCULAR: Negative for chest pain, leg swelling, hypertension, CHF or palpitations GI: No nausea, vomiting, or diarrhea : See HPI MUSCULOSKELETAL: Negative for joint pain or swelling, back pain or muscle pain SKIN: Negative for lesions, rash, and itching EXAM: BP 118/68 (BP Site: Left Arm, BP Position: Sitting, BP Cuff Size: Regular Adult) Pulse 64 Resp 16 Ht 185.4 cm (6' 1) Wt 91.2 kg (201 lb) BMI 26.52 kg/m? General Appearance: Well appearing, alert, in no acute distress, well-hydrated, well nourished.. Skin: Skin color, texture, turgor normal, no suspicious rashes or lesions. Head: Normocephalic, no masses, lesions, tenderness or abnormalities. Eyes: Anicteric sclera. Pupils are equally round and reactive to light. Extraocular movements are intact. . Ears: External ears normal, canals clear. Oropharynx: Lips, mucosa, and tongue normal, teeth and gums normal, oropharynx normal. Neck: Supple, no adenopathy; thyroid symmetric, normal size, no bruits. Lungs: Lungs clear to auscultation. No wheezing, rhonchi, rales. Heart: RRR without murmur, gallop, or rubs. No ectopy. Abdomen: Normal abdominal exam, Abdomen soft, non-tender. Bowel sounds normal. No masses, organomegaly. Extremities: No deformities, edema, skin discoloration, clubbing or cyanosis. Good capillary refill. . Health Maintenance List PNEUMOVAX AGE 65 AND OVER WITH 5YR LOOKBACK(1) due on 02/08/2017 DTAP,TDAP,TD(2 - Td) due on 04/18/2018 DIABETES SCREEN due on 09/24/2020 COLORECTAL CANCER SCREENING,SEE MODIFIER due on 04/13/2022 LIPID SCREEN due on 09/24/2022 PROSTATE CANCER SCREENING DISCUSSION Completed ADULT PREVNAR-13 Completed INFLUENZA Completed HEPATITIS C SCREENING Completed Data reviewed Component Latest Ref Rng AND Units 08/11/2017 09/24/2017 WBC 3.70 - 11.00 k/uL 6.32 RBC 4.20 - 6.00 m/uL 3.91 (L) Hemoglobin 13.0 - 17.0 g/dL 12.0 (L) Hematocrit 39.0 - 51.0 % 35.7 (L) MCV 80.0 - 100.0 fL 91.3 MCH 26.0 - 34.0 pG 30.7 MCHC 30.5 - 36.0 g/dL 33.6 RDW-CV 11.5 - 15.0 % 12.7 Platelet Count 150 - 400 k/uL 172 MPV 9.0 - 12.7 fL 10.0 Neut% % 61.3 Abs Neut (ANC) 1.45 - 7.50 k/uL 3.85 Lymph% % 22.3 Abs Lymph 1.00 - 4.00 k/uL 1.41 [place]% % 11.2 Abs [place] <0.87 k/uL 0.71 Eosin% % 4.1 Abs Eosin <0.46 k/uL 0.26 Baso% % 1.1 Abs Baso <0.11 k/uL 0.07 Nucleated Reds 0 /100 WBC 0.0 Absolute nRBC <0.01 k/uL <0.01 Diff Type Auto Diff Albumin 3.9 - 4.9 g/dL 3.5 (L) Calcium 8.5 - 10.2 mg/dL 8.5 Phosphorus 2.7 - 4.8 mg/dL 3.4 Glucose 74 - 99 mg/dL 124 (H) BUN 9 - 24 mg/dL 11 Creatinine 0.73 - 1.22 mg/dL 0.91 Sodium 136 - 144 mmol/L 142 Potassium 3.7 - 5.1 mmol/L 4.2 Chloride 97 - 105 mmol/L 104 CO2 22 - 30 mmol/L 26 Anion Gap 9 - 18 mmol/L 12 eGFR- >60 eGFR-All Other Races . >60 Cholesterol, Total <200 mg/dL 231 (H) Triglyceride <150 mg/dL 114 HDL Cholesterol >39 mg/dL 69 LDL Cholesterol <100 mg/dL 139 (H) Non HDL Cholesterol <130 mg/dL 162 (H) Fasting Time hrs 15 VLDL Cholesterol <30 mg/dL 23 TC:HDL Ratio <5.10 3.35 LDL:HDL Ratio <2.54 2.01 Hemoglobin A1C 4.3 - 5.6 % 5.3 Estimated Average Glucose mg/dL 105 Magnesium 1.7 - 2.3 mg/dL 1.9 Homocysteine, Serum <15.1 umol/L 10.2 MMA 79 - 376 nmol/L 147 Vitamin D 25 Hydroxy 31.0 - 80.0 ng/mL 39.7 ASSESSMENT/PLAN: 1. Annual physical exam - ICD9: V70.0, ICD10: Z00.00 (primary diagnosis) - Recommended regular aerobic exercise. - Discussed need and benefit for weight loss. BMI 26.52 kg/(m2) - Vaccination(s) recommended today: Shingrix - Follow up for annual exam in one year. - ZOSTER VACC RECOMBINANT,IM 2. Cervical radiculopathy - ICD9: 723.4, ICD10: M54.12 Symptoms improved s/p surgery. Following up with Dr. Riley later today. 3. Neural foraminal stenosis of lumbar spine - ICD9: 724.02, ICD10: M99.83 Still having pain in LE. Has follow up with ortho spine today to further discuss surgical options vs pain management. 4. Coronary artery disease involving tunica-biloxi coronary artery of tunica-biloxi heart without angina pectoris - ICD9: 414.01, ICD10: I25.10 Will start patient on Zetia as he is intolerant to all statins and wanted something cheaper than PCSK9 medications. Discussed healthy diet and exercise. Keep f/u appointment as scheduled with cardiology. 5. Mixed hyperlipidemia - ICD9: 272.2, ICD10: E78.2 - poor control - Begin treatment with ezetimibe (Zetia) 10 mg - Encouraged following a low fat, low cholesterol diet. - Discussed the benefits of regular aerobic exercise and weight loss. - EZETIMIBE 10 MG TABLET 6. Essential hypertension - ICD9: 401.9, ICD10: I10 - good control - Continue current medication(s) - Encouraged dietary sodium restriction/DASH diet - Recommended regular aerobic exercise. - Reviewed risks of HTN and principles of treatment - Goal of BP <140/90 7. ASHD (arteriosclerotic heart disease) - ICD9: 414.00, ICD10: I25.10 See above 8. Statin intolerance - ICD9: 995.27, ICD10: Z78.9 See above, start zetia. 9. Attention deficit disorder with hyperactivity - ICD9: 314.01, ICD10: F90.9 Controlled on Lexapro. 10. Benign prostatic hyperplasia with nocturia - ICD9: 600.01, 788.43, ICD10: N40.1, R35.1 Refill flomax, refer to urology. Refusing rectal exam today. - TAMSULOSIN 0.4 MG CAPSULE - CONSULT TO UROLOGY 11. Normocytic anemia - ICD9: 285.9, ICD10: D64.9 Found after cervical spine procedure. Will repeat and call with results. If worsening or stable will work up with FOBT and additional blood work to rule out iron/vitamin deficiencies. - CBC + DIFF 12. 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 No complaints of bleeding/clotting. 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] Coronary artery disease involving tunica-biloxi coronary artery of tunica-biloxi heart without angina pectoris [I25.10] Mixed hyperlipidemia [E78.2] Essential hypertension [I10] ASHD (arteriosclerotic heart disease) [I25.10] Statin intolerance [Z78.9] Attention deficit disorder with hyperactivity [F90.9] Benign prostatic hyperplasia with nocturia [N40.1, R35.1] Normocytic anemia [D64.9] 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) [E72.12] Order(s):tamsulosin ER (FLOMAX) 0.4 mg [id number] 1 capsule by mouth once daily.Disp: 30 capsuleRfl: 11 ezetimibe (ZETIA) 10 mg tabletTake 1 tablet by mouth once daily.Disp: 30 tabletRfl: 5 CONSULT TO UROLOGY [9041] Order #: [id number]: 1 ZOSTER VACC RECOMBINANT,IM [[id number]] Order #: [id number] CBC + DIFF [SQCBCDIF] Order #: [id number] FUTURE Prescriptions as of 09/29/2017 Sig: TAMSULOSIN 0.4 MG CAPSULE Take 1 capsule by mouth once * GABAPENTIN 300 MG CAPSULE Take 600 mg by mouth daily at* DICLOFENAC SODIUM 75 MG TABLE* Take 1 tablet by mouth twice * ASPIRIN 81 MG TABLET,DELAYED * Take 1 tablet by mouth once d* OTC NUTRITIONAL SUPPLEMENT Take 1 capsule by mouth once * OTC NUTRITIONAL SUPPLEMENT Take 2 capsules by mouth valentin* OTC NUTRITIONAL SUPPLEMENT Take 1 capsule by mouth daily* ESCITALOPRAM 10 MG TABLET take 1 tablet by mouth once d* OTC NUTRITIONAL SUPPLEMENT Take 3 capsules daily. OTC NUTRITIONAL SUPPLEMENT Take 1 capsule by mouth daily* OTC NUTRITIONAL SUPPLEMENT Take 3-5 drops daily, with me* EZETIMIBE 10 MG TABLET Take 1 tablet by mouth once d* OTC NUTRITIONAL SUPPLEMENT Take 3 capsules by mouth valentin* Medication notes this encounter DOCUSATE SODIUM 100 MG CAPSULE >> Triston Albright LPN 09/29/2017 8:23 AM >> TRISTON ALBRIGHT LPN WedSeptember 29, 2017 8:23 AM No longer taking this SENNOSIDES 8.6 MG TABLET >> Triston Albright LPN 09/29/2017 8:23 AM >> TRISTON ALBRIGHT BED CONTROL SPECIALIST WedSeptember 29, 2017 8:23 AM No longer taking BENZOCAINE-MENTHOL 15 MG-3.6 MG LOZENGES >> Triston Albright BED CONTROL SPECIALIST 09/29/2017 8:24 AM >> TRISTON ALBRIGHT BED CONTROL SPECIALIST WedSeptember 29, 2017 8:24 AM Finished treatment PANTOPRAZOLE 40 MG TABLET,DELAYED RELEASE >> Triston Albright BED CONTROL SPECIALIST 09/29/2017 8:24 AM >> TRISTON ALBRIGHT BED CONTROL SPECIALIST WedSeptember 29, 2017 8:24 AM Finished treatment METHOCARBAMOL 750 MG TABLET >> Triston Albright BED CONTROL SPECIALIST 09/29/2017 8:24 AM >> TRISTON ALBRIGHT BED CONTROL SPECIALIST WedSeptember 29, 2017 8:24 AM Finished treatment Problem List As Of Date 09/29/2017 Noted Resolved PERS HX TOBACCO USE [Z87.891] INVALID FOR* Abdominal pain, epigastric [R10.13] INVALID FOR*02/18/2010 Attention deficit disorder with hyperactivity [*INVALID FOR* NOCTURIA [R35.1] INVALID FOR* Pain in soft tissues of limb [M79.609] INVALID FOR*02/18/2010 Empyema without mention of fistula [J86.9] INVALID FOR*03/31/2017 Pain in joint, shoulder region [M25.519] INVALID FOR*04/06/2017 Esophagitis, unspecified [K20.9] INVALID FOR*04/06/2017 Acute gastritis without mention of hemorrhage [*INVALID FOR*03/31/2017 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 Tear of medial cartilage or meniscus of knee, c*INVALID FOR*04/06/2017 Lumbar radiculopathy [M54.16] INVALID FOR* ED (erectile dysfunction) [N52.9] INVALID FOR* Low testosterone [E34.9] INVALID FOR*03/31/2017 Benign neoplasm of colon [D12.6] INVALID FOR*03/31/2017 SUMMARY [V999.95] INVALID FOR* More... Unstable angina [I20.0] INVALID FOR*07/12/2012 Priority: A More... Hyperlipidemia [E78.5] INVALID FOR* Priority: C More... Sinus infection [J32.9] INVALID FOR*12/12/2011 More... Need for prophylactic measure [Z29.9] INVALID FOR*03/31/2017 More... Tubular adenoma of colon [D12.6] INVALID FOR* Presence of drug coated stent in posterior desc*INVALID FOR* ASCVD (arteriosclerotic cardiovascular disease)*INVALID FOR*03/31/2017 ASHD (arteriosclerotic heart disease) [I25.10] INVALID FOR* Right carpal tunnel syndrome [G56.01] INVALID FOR*04/06/2017 CAD (coronary artery disease) [I25.10] INVALID FOR* Priority: E More... Hypertension [I10] INVALID FOR* Diarrhea [R19.7] INVALID FOR*03/31/2017 More... Non-ST elevation myocardial infarction (NSTEMI)*INVALID FOR* More... Presence of drug coated stent in left circumfle*INVALID FOR* Lumbar foraminal stenosis [M99.83] INVALID FOR*03/31/2017 Lumbar spondylosis [M47.816] INVALID FOR* Priority: A Neural foraminal stenosis of lumbar spine [M99.*INVALID FOR* Priority: A More... Right lumbar radiculopathy [M54.16] INVALID FOR* Priority: C Status post insertion of drug-eluting stent int*INVALID FOR* Anxiety [F41.9] INVALID FOR* Thoracic or lumbosacral neuritis or radiculitis*INVALID FOR*04/06/2017 Lumbosacral spondylosis without myelopathy [M47*INVALID FOR* Hypertriglyceridemia [E78.1] INVALID FOR*03/31/2017 Rotator cuff syndrome of right shoulder [M75.10*INVALID FOR*04/06/2017 Family history of ischemic heart disease [Z82.4*INVALID FOR* Multiple vessel coronary artery disease [I25.10]INVALID FOR*03/31/2017 Statin intolerance [Z78.9] INVALID FOR* Hypogonadism in male [E29.1] Lumbar stenosis [M48.061] INVALID FOR* 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 Cervical radiculopathy [M54.12] INVALID FOR* S/P cervical disc replacement [Z98.890] INVALID FOR* Priority: C Acute postoperative pain [G89.18] INVALID FOR* Priority: D More... Prescriptions ordered this encounter Disp Refills Start End TAMSULOSIN 0.4 MG CAPSULE 30 c* 11 09/29/2017 09/29/2018 Route: ORAL Sig: Take 1 capsule by mouth once daily. EZETIMIBE 10 MG TABLET 30 t* 5 09/29/2017 Route: ORAL Sig: Take 1 tablet by mouth once daily. Medications Discontinued During This Encounter docusate sodium (COLACE) 100 mg caps* 60 c* 0 08/11/2017 09/29/2017 Route: ORAL Sig: Take 1 capsule by mouth twice daily. Patient not taking: Reported on 09/15/2017 Disc: Reason for discontinue is not on file. senna (SENOKOT) 8.6 mg tab 30 t* 0 08/11/2017 09/29/2017 Route: ORAL Sig: Take 2 tablets by mouth once daily as needed (Constipation). Patient not taking: Reported on 09/15/2017 Disc: Reason for discontinue is not on file. benzocaine-menthol (CEPACOL) 15-3.6 * 1 Pa* 0 08/11/2017 09/29/2017 Route: MUCOUS MEMBRANE (TOPICAL MOUTH AND THROAT) Sig: Use 1 Lozenge as instructed every 2 hours as needed (Sore throat). Patient not taking: Reported on 09/15/2017 Disc: Reason for discontinue is not on file. pantoprazole DR (PROTONIX) 40 mg tab* 13 t* 0 08/11/2017 09/29/2017 Route: ORAL Sig: Take 1 tablet by mouth DAILY (6 AM) for 13 doses. Disc: Reason for discontinue is not on file. methocarbamol (ROBAXIN) 750 mg tablet 60 t* 0 08/11/2017 09/29/2017 Route: ORAL Sig: Take 1 tablet by mouth every 6 hours as needed (Muscle spasms / pain). Patient not taking: Reported on 09/15/2017 Disc: Reason for discontinue is not on file. tamsulosin ER (FLOMAX) 0.4 mg cp24 14 c* 0 08/12/2017 09/29/2017 Route: ORAL Sig: Take 1 capsule by mouth once daily for 14 days. Disc: Reason for discontinue is not on file. Disposition: Return in about 6 months (around 04/01/2018). Follow-up and Disposition History Recorded Encounter Status:Closed by LISA ROSADO MD on 09/29/17 LIPID PANEL, BASIC Collected: 09/24/2017 Status: F Source: [facility] 11:38 AM [facility] REPOSITORY TYPE CODE TESTS RESULT OUT OF REFERENCE UNITS RANGE LAB CHOL <200 mg/dL Cholesterol High 231 Result Comment: <200 mg/dL, Desirable 200-239 mg/dL, Borderline high >239 mg/dL, High LAB TRIGLY <150 mg/dL Triglyceride 114 Result Comment: <150 mg/dL, Normal 150-199 mg/dL, Borderline high 200-499 mg/dL, High >499 mg/dL, Very high LAB HDL >39 mg/dL HDL-Cholesterol 69 Result Comment: 40-59 mg/dL, Acceptable >59 mg/dL, High: Negative risk factor for coronary heart disease <40 mg/dL, Low: Positive risk factor for coronary heart disease LAB LDL <100 mg/dL LDL-Cholesterol High 139 Result Comment: <100 mg/dL, Optimal 100-129 mg/dL, Near optimal/above optimal 130-159 mg/dL, Borderline high 160-189 mg/dL, High >189 mg/dL, Very high Secondary prevention optimal LDL Cholesterol levels are recommended to be < 70 mg/dL LAB NONHDL <130 mg/dL Non HDL High Cholesterol 162 Result Comment: <130 mg/dL, Optimal 130-159 mg/dL, Near optimal/above optimal 160-189 mg/dL, Borderline high 190-219 mg/dL, High >219 mg/dL, Very high Secondary prevention optimal non HDL Cholesterol levels are recommended to be < 100 mg/dL LAB FT hrs Fasting Time 15 LAB VLDL <30 mg/dL VLDL Cholesterol 23 LAB TCHDL <5.10 TC:HDL Ratio 3.35 LAB LDLHDL <2.54 LDL:HDL Ratio 2.01 Result Comment: Reference: 1. National Cholesterol Education Program ATP III Guideline At-A-Glance Quick Desk Reference: National Heart, Lung, and Blood [place]. National Institutes of Health. 2001: NIH Publication No. 01-3305. 2. An International Atherosclerosis Society position paper: global recommendations for the management of dyslipidemia: executive summary, Atherosclerosis. 2014: 232(2):410-413. Performed By: #### LIPB, HBA1C #### [facility] [place] [address] HEMOGLOBIN A1C Collected: 09/24/2017 Status: F Source: [facility] 11:38 AM [facility] REPOSITORY TYPE CODE TESTS RESULT OUT OF REFERENCE UNITS RANGE LAB HGBA1C 4.3-5.6 % Hemoglobin A1c 5.3 LAB HBA0 mg/dL Est. Average Glucose 105 Result Comment: eAG: (Estimated average glucose) is a calculated value from HgbA1c and is personal service representative of the average blood glucose level in the last 2-3 month period. Performed By: #### LIPB, HBA1C #### [facility] [place] [address] HOMOCYSTEINE Collected: 09/24/2017 Status: F Source: [facility] 11:37 AM [facility] REPOSITORY TYPE CODE TESTS RESULT OUT OF REFERENCE UNITS RANGE LAB HOMCYS <15.1 umol/L Homocysteine 10.2 Performed By: #### HOMCYS, VITD, MMA, NMRLIP #### [facility] [address] [place] [address] VITAMIN D 25 HYDROXY Collected: 09/24/2017 Status: F Source: [facility] 11:37 AM [facility] REPOSITORY TYPE CODE TESTS RESULT OUT OF REFERENCE UNITS RANGE LAB VITD 31.0-80.0 ng/mL Vitamin D 25 39.7 Hydroxy Result Comment: Classification of 25 [place] Vitamin D status: Insufficiency/Moderate Deficiency: < or = 30 ng/mL Sufficiency/Optimal Levels: 31 to 80 ng/mL Toxicity: > 100 ng/mL Test performed by chemiluminescent immunoassay. Performed By: #### HOMCYS, VITD, MMA, NMRLIP #### [facility] [address] [place] [id number] METHYLMALONIC ACID Collected: 09/24/2017 Status: F Source: [facility] 11:37 [facility] REPOSITORY TYPE CODE TESTS RESULT OUT OF REFERENCE UNITS RANGE LAB MMA 79-376 nmol/L Methylmalonic Acid 147 Result Comment: This test was developed and its performance characteristics determined by [facility]'s [facility] Mor[facility] Pathology and Laboratory Medicine [place] ([facility]). It has not been cleared or approved by the FDA. [facility] is regulated under CLIA as qualified to perform high-complexity testing. This test is used for clinical purposes. It should not be regarded as investigational or for research. Performed By: #### HOMCYS, VITD, MMA, NMRLIP #### [facility] [address] [place], [place] [address] NMR LIPOPROTEIN PROF Collected: 09/24/2017 Status: C Source: [facility] 11:37 [facility] REPOSITORY TYPE CODE TESTS RESULT OUT OF REFERENCE UNITS RANGE LAB [facility] NMRLIP SERUM RED Source Result Comment: Corrected on 09/24 AT 2016: Previously reported as 15 LAB LDLPN <1000 nmol/L LDL Particle High Number 1751 LAB NMRLDL 0-99 mg/dL LDL High Cholesterol 138 Result Comment: (NOTE) LDL-C is inaccurate if patient is non-fasting. LAB NMRHDL >39 mg/dL HDL Cholesterol 65 LAB NMRTRG 0-149 mg/dL Triglycerides 131 LAB NMRTOT 100-199 mg/dL Total Cholesterol High 229 LAB HDLP >=30.5 umol/L Total HDL Particles 38.6 LAB SMLDLP <=527 nmol/L Small LDL-P High 543 LAB LVLDLP <=2.7 nmol/L Large VLDL-P <0.8 LAB LGHDLP >=4.8 umol/L Large HDL-P 6.7 LAB VLDLSZ <=46.6 nm VLDL Size 42.0 LAB LDLSZE >20.5 nm LDL Size 21.4 Result Comment: (NOTE) Small LDL-P and LDL Size are associated with CVD risk, but not after LDL-P is taken into account. These assays were developed and their performance characteristics determined by [employer]. These assays have not been cleared by the US Food and Drug Administration. The clinical utility of these laboratory values have not been fully established. LAB HDLSZE >=9.2 nm Low HDL Size 9.1 LAB LPIR <=45 LP / IR Score <25 Result Comment: (NOTE) LP-IR Score is inaccurate if patient is non-fasting. The LP-IR score is a laboratory developed index that has been associated with insulin resistance and diabetes risk and should be used as one component of a physician's clinical assessment. Neither the LP-IR score nor the subclasses listed above have been cleared by the US Food and Drug Administration. Test performed at: [facility] [id number] [place] [address] Kendall Moreau MD Performed By: #### HOMCYS, VITD, MMA, NMRLIP #### [facility] [address] [place], [place] [address] PROGRESS Observed: 09/15/2017 Status: COMPLETED Source: [place] 11:53 AM [facility] REPOSITORY HNO ID: [id number] Author: Jose Chu V Service: (none) Author Type: Physician Type: Progress Notes Filed: 09/15/2017 12:00 PM Note Text: Liliya Encinas presents with pain in the left leg. Pain radiates to, the left foot. Associated symptoms are, numbness to lateral calf, and foot. He underwent lumbar fusion 1 year ago, and cervical disc replacement 2 levels 5 weeks ago. He does daily stretches, uses a heat lamp, and does core stabilization exercises regularly. He states that his symptoms were essentially gone after the fusion, but since then he has had intermittent episodes of symptoms. Most recently, starting a few weeks ago, the shooting pain down the leg into the foot began and seems to be worse at night and when he is sedentary. He denies any leg or foot weakness, bowel or bladder dysfunction. He currently takes ibuprofen intermittently with some level of pain relief. Physical Exam Findings: General exam: Normal, Extremeties no focal swelling, redness or warmth. No lower extremity weakness or functional deficits. Assessment: LLE radiculopathy DDD lumbar spine, s/p lumbar fusion Plan: 1. Patient Instructions: Continue present maintenance plan with core strengthening, stretching, moist heat, activity tolerance 2. Patient's request for medication is as follows Signed Prescriptions Disp Refills predniSONE (DELTASONE) 10 mg tablet 30 tablet 0 Sig: Take 4 tabs daily x 3 days, then 3 tabs x 3 days, 2 tabs x 3 days, then 1 tab x3 days with food. diclofenac, EC, (VOLTAREN) 75 mg EC tablet 60 tablet 2 Sig: Take 1 tablet by mouth twice daily. For pain/inflammation. Take with food. Do not take ibuprofen with either medication Do not take both Voltaren until prednisone taper is completed Jose Chu DO PROGRESS Observed: 09/15/2017 Status: COMPLETED Source: [place] 10:07 AM [facility] REPOSITORY HNO ID: [id number] Author: Daniela Vidal RN Service: (none) Author Type: (none) Type: Progress Notes Filed: 09/15/2017 12:00 PM Note Text: AMB ROOMING INTAKE FLOWSHEET DATA Risk Screening Do you have concerns about personal safety or safety in the home?: No Pain Pain Score: 8/10 Pain Location: Leg-Left Description: Sharp Duration Amount of Time: 1 Duration Units: Years Frequency: Intermittent Intervention: Medication Patient presents with: New problem: left leg pain, last seen 05-18-17 for cervical DDD, REF: Dr. Riley Pt. continues to have low level leg pain despite spinal lumbar fusion approximately one year ago. He had agreed with surgeon he was supposed to discontinue gabapentin, but he has been unable to do this. Pain has been radiating down left lateral thigh, but at other times changes. He has been trying ibuprofen as well, but does not find lasting relief. He has f/u with surgeon coming up but feels that he will not address pain management issues. CNOV Observed: 09/15/2017 Status: COMPLETED Source: [place] 10:00 AM [facility] REPOSITORY Office Visit () LILIYA ENCINAS ([id number]) 1950 M Date Time Provider Department 09/15/17 10:00 AM JOSE CHU During your visit today, we recorded the following information about you: Daniela Vidal RN 09/15/2017 12:00 PM Signed AMB ROOMING INTAKE FLOWSHEET DATA Risk Screening Do you have concerns about personal safety or safety in the home?: No Pain Pain Score: 8/10 Pain Location: Leg-Left Description: Sharp Duration Amount of Time: 1 Duration Units: Years Frequency: Intermittent Intervention: Medication Patient presents with: New problem: left leg pain, last seen 05-18-17 for cervical DDD, REF: Dr. Riley Pt. continues to have low level leg pain despite spinal lumbar fusion approximately one year ago. He had agreed with surgeon he was supposed to discontinue gabapentin, but he has been unable to do this. Pain has been radiating down left lateral thigh, but at other times changes. He has been trying ibuprofen as well, but does not find lasting relief. He has f/u with surgeon coming up but feels that he will not address pain management issues. Jose Chu DO 09/15/2017 12:00 PM Signed Liliya Encinas presents with pain in the left leg. Pain radiates to, the left foot. Associated symptoms are, numbness to lateral calf, and foot. He underwent lumbar fusion 1 year ago, and cervical disc replacement 2 levels 5 weeks ago. He does daily stretches, uses a heat lamp, and does core stabilization exercises regularly. He states that his symptoms were essentially gone after the fusion, but since then he has had intermittent episodes of symptoms. Most recently, starting a few weeks ago, the shooting pain down the leg into the foot began and seems to be worse at night and when he is sedentary. He denies any leg or foot weakness, bowel or bladder dysfunction. He currently takes ibuprofen intermittently with some level of pain relief. Physical Exam Findings: General exam: Normal, Extremeties no focal swelling, redness or warmth. No lower extremity weakness or functional deficits. Assessment: LLE radiculopathy DDD lumbar spine, s/p lumbar fusion Plan: 1. Patient Instructions: Continue present maintenance plan with core strengthening, stretching, moist heat, activity tolerance 2. Patient's request for medication is as follows Signed Prescriptions Disp Refills predniSONE (DELTASONE) 10 mg tablet 30 tablet 0 Sig: Take 4 tabs daily x 3 days, then 3 tabs x 3 days, 2 tabs x 3 days, then 1 tab x3 days with food. diclofenac, EC, (VOLTAREN) 75 mg EC tablet 60 tablet 2 Sig: Take 1 tablet by mouth twice daily. For pain/inflammation. Take with food. Do not take ibuprofen with either medication Do not take both Voltaren until prednisone taper is completed Jose Chu, DO Referring Provider: SELF [200] Allergies As of Date: 09/15/2017 Noted Allergy Reaction SEASONAL ALLERGIES 04/20/2012 14 - Other: See Comments Date Reviewed: 09/15/2017 Reviewed by: Daniela Vidal RN - Fully Assessed Reason for Visit: New problem [Other] Cmt: left leg pain, last seen 05-18-17 for cervical DDD, REF: Dr. Riley Visit Diagnoses:Lumbar spondylosis [M47.816] Neural foraminal stenosis of lumbar spine [M99.83] Degeneration of intervertebral disc at C4- C5 level [M50.321] Degeneration of intervertebral disc at C5- C6 level [M50.322] Order(s):predniSONE (DELTASONE) 10 mg tabletTake 4 tabs daily x 3 days, then 3 tabs x 3 days, 2 tabs x 3 days, then 1 tab x3 days with food.Disp: 30 tabletRfl: 0 diclofenac, EC, (VOLTAREN) 75 mg EC tabletTake 1 tablet by mouth twice daily. For pain/inflammation. Take with food.Disp: 60 tabletRfl: 2 Prescriptions as of 09/15/2017 Sig: GABAPENTIN 300 MG CAPSULE Take 600 mg by mouth daily at* ASPIRIN 81 MG TABLET,DELAYED * Take 1 tablet by mouth once d* OTC NUTRITIONAL SUPPLEMENT Take 1 capsule by mouth once * OTC NUTRITIONAL SUPPLEMENT Take 2 capsules by mouth valentin* OTC NUTRITIONAL SUPPLEMENT Take 1 capsule by mouth daily* ESCITALOPRAM 10 MG TABLET take 1 tablet by mouth once d* OTC NUTRITIONAL SUPPLEMENT Take 3 capsules by mouth valentin* OTC NUTRITIONAL SUPPLEMENT Take 3 capsules daily. OTC NUTRITIONAL SUPPLEMENT Take 1 capsule by mouth daily* OTC NUTRITIONAL SUPPLEMENT Take 3-5 drops daily, with me* PREDNISONE 10 MG TABLET Take 4 tabs daily x 3 days, t* DICLOFENAC SODIUM 75 MG TABLE* Take 1 tablet by mouth twice * TAMSULOSIN 0.4 MG CAPSULE Take 1 capsule by mouth once * DOCUSATE SODIUM 100 MG CAPSULE Take 1 capsule by mouth twice* Patient not taking: Reported on 09/15/2017 SENNOSIDES 8.6 MG TABLET Take 2 tablets by mouth once * Patient not taking: Reported on 09/15/2017 BENZOCAINE-MENTHOL 15 MG-3.6 * Use 1 Lozenge as instructed e* Patient not taking: Reported on 09/15/2017 PANTOPRAZOLE 40 MG TABLET,DEL* Take 1 tablet by mouth DAILY * METHOCARBAMOL 750 MG TABLET Take 1 tablet by mouth every * Patient not taking: Reported on 09/15/2017 Problem List As Of Date 09/15/2017 Noted Resolved PERS HX TOBACCO USE [Z87.891] INVALID FOR* Abdominal pain, epigastric [R10.13] INVALID FOR*02/18/2010 Attention deficit disorder with hyperactivity [*INVALID FOR* NOCTURIA [R35.1] INVALID FOR* Pain in soft tissues of limb [M79.609] INVALID FOR*02/18/2010 Empyema without mention of fistula [J86.9] INVALID FOR*03/31/2017 Pain in joint, shoulder region [M25.519] INVALID FOR*04/06/2017 Esophagitis, unspecified [K20.9] INVALID FOR*04/06/2017 Acute gastritis without mention of hemorrhage [*INVALID FOR*03/31/2017 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 Tear of medial cartilage or meniscus of knee, c*INVALID FOR*04/06/2017 Lumbar radiculopathy [M54.16] INVALID FOR* ED (erectile dysfunction) [N52.9] INVALID FOR* Low testosterone [E34.9] INVALID FOR*03/31/2017 Benign neoplasm of colon [D12.6] INVALID FOR*03/31/2017 SUMMARY [V999.95] INVALID FOR* More... Unstable angina [I20.0] INVALID FOR*07/12/2012 Priority: A More... Hyperlipidemia [E78.5] INVALID FOR* Priority: C More... Sinus infection [J32.9] INVALID FOR*12/12/2011 More... Need for prophylactic measure [Z29.9] INVALID FOR*03/31/2017 More... Tubular adenoma of colon [D12.6] INVALID FOR* Presence of drug coated stent in posterior desc*INVALID FOR* ASCVD (arteriosclerotic cardiovascular disease)*INVALID FOR*03/31/2017 ASHD (arteriosclerotic heart disease) [I25.10] INVALID FOR* Right carpal tunnel syndrome [G56.01] INVALID FOR*04/06/2017 CAD (coronary artery disease) [I25.10] INVALID FOR* Priority: E More... Hypertension [I10] INVALID FOR* Diarrhea [R19.7] INVALID FOR*03/31/2017 More... Non-ST elevation myocardial infarction (NSTEMI)*INVALID FOR* More... Presence of drug coated stent in left circumfle*INVALID FOR* Lumbar foraminal stenosis [M99.83] INVALID FOR*03/31/2017 Lumbar spondylosis [M47.816] INVALID FOR* Priority: A Neural foraminal stenosis of lumbar spine [M99.*INVALID FOR* Priority: A More... 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 Cervical radiculopathy [M54.12] INVALID FOR* S/P cervical disc replacement [Z98.890] INVALID FOR* Priority: C Acute postoperative pain [G89.18] INVALID FOR* Priority: D More... Prescriptions ordered this encounter Disp Refills Start End PREDNISONE 10 MG TABLET 30 t* 0 09/15/2017 09/27/2017 Sig: Take 4 tabs daily x 3 days, then 3 tabs x 3 days, 2 tabs x 3 days, then 1 tab x3 days with food. DICLOFENAC SODIUM 75 MG TABLET,DELAY* 60 t* 2 09/15/2017 10/15/2017 Route: ORAL Sig: Take 1 tablet by mouth twice daily. For pain/inflammation. Take with food. Encounter Status:Closed by JOSE CHU DO, V on 09/15/17 BILL Observed: 09/14/2017 Status: COMPLETED Source: [place] 12:00 AM [facility] REPOSITORY Patient Outreach (FAMPST) LILIYA ENCINAS ([id number]) 1950 Date Time Provider Department 09/14/17 LISA ROSADO) FAMPST During your visit today, we recorded the following information about you: Allergies As of Date: 09/14/2017 Noted Allergy Reaction No Active Allergies DELETED: SEASONAL ALLERGIES 04/20/2012 14 - Other: See Comments Date Reviewed: 08/11/2017 Reviewed by: Carrillo Agustin) PHOENIX Mclean - Fully Assessed Visit Diagnosis:Medication management [Z79.899] Order(s):HGB A1C [CJFPR5B] Order #: [id number] FUTURE LIPID PANEL BASIC [SQLIPB] Order #: [id number] FUTURE Prescriptions as of 09/14/2017 Sig: X TAMSULOSIN 0.4 MG CAPSULE Take 1 capsule by mouth once * X DOCUSATE SODIUM 100 MG CAPSULE Take 1 capsule by mouth twice* Patient not taking: Reported on 09/15/2017 X SENNOSIDES 8.6 MG TABLET Take 2 tablets by mouth once * Patient not taking: Reported on 09/15/2017 X BENZOCAINE-MENTHOL 15 MG-3.6 * Use 1 Lozenge as instructed e* Patient not taking: Reported on 09/15/2017 X PANTOPRAZOLE 40 MG TABLET,DEL* Take 1 tablet by mouth DAILY * X METHOCARBAMOL 750 MG TABLET Take 1 tablet by mouth every * Patient not taking: Reported on 09/15/2017 ASPIRIN 81 MG TABLET,DELAYED * Take 1 tablet by mouth once d* OTC NUTRITIONAL SUPPLEMENT Take 1 capsule by mouth once * OTC NUTRITIONAL SUPPLEMENT Take 2 capsules by mouth valentin* OTC NUTRITIONAL SUPPLEMENT Take 1 capsule by mouth daily* X ESCITALOPRAM 10 MG TABLET take 1 tablet by mouth once d* Patient not taking: Reported on 12/22/2017 OTC NUTRITIONAL SUPPLEMENT Take 3 capsules by mouth valentin* OTC NUTRITIONAL SUPPLEMENT Take 3 capsules daily. OTC NUTRITIONAL SUPPLEMENT Take 1 capsule by mouth daily* OTC NUTRITIONAL SUPPLEMENT Take 3-5 drops daily, with me* Problem List As Of Date 09/14/2017 Noted Resolved PERS HX TOBACCO USE [Z87.891] INVALID FOR* Abdominal pain, epigastric [R10.13] INVALID FOR*02/18/2010 Attention deficit disorder with hyperactivity [*INVALID FOR* NOCTURIA [R35.1] INVALID FOR* Pain in soft tissues of limb [M79.609] INVALID FOR*02/18/2010 Empyema without mention of fistula [J86.9] INVALID FOR*03/31/2017 Pain in joint, shoulder region [M25.519] INVALID FOR*04/06/2017 Esophagitis, unspecified [K20.9] INVALID FOR*04/06/2017 Acute gastritis without mention of hemorrhage [*INVALID FOR*03/31/2017 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 Tear of medial cartilage or meniscus of knee, c*INVALID FOR*04/06/2017 Lumbar radiculopathy [M54.16] INVALID FOR* ED (erectile dysfunction) [N52.9] INVALID FOR* Low testosterone [E34.9] INVALID FOR*03/31/2017 Benign neoplasm of colon [D12.6] INVALID FOR*03/31/2017 SUMMARY [V999.95] INVALID FOR* More... Unstable angina [I20.0] INVALID FOR*07/12/2012 Priority: A More... Hyperlipidemia [E78.5] INVALID FOR* Priority: C More... Sinus infection [J32.9] INVALID FOR*12/12/2011 More... Need for prophylactic measure [Z29.9] INVALID FOR*03/31/2017 More... Tubular adenoma of colon [D12.6] INVALID FOR* Presence of drug coated stent in posterior desc*INVALID FOR* ASCVD (arteriosclerotic cardiovascular disease)*INVALID FOR*03/31/2017 ASHD (arteriosclerotic heart disease) [I25.10] INVALID FOR* Right carpal tunnel syndrome [G56.01] INVALID FOR*04/06/2017 CAD (coronary artery disease) [I25.10] INVALID FOR* Priority: E More... Hypertension [I10] INVALID FOR* More... Diarrhea [R19.7] INVALID FOR*03/31/2017 More... Non-ST elevation myocardial infarction (NSTEMI)*INVALID FOR* More... Presence of drug coated stent in left circumfle*INVALID FOR* Lumbar foraminal stenosis [M99.83] INVALID FOR*03/31/2017 Lumbar spondylosis [M47.816] INVALID FOR* Priority: A Neural foraminal stenosis of lumbar spine [M99.*INVALID FOR* Priority: A More... 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 Cervical radiculopathy [M54.12] INVALID FOR* S/P cervical disc replacement [Z98.890] INVALID FOR* Priority: C Acute postoperative pain [G89.18] INVALID FOR* Priority: D More... Encounter Status:Closed by CLINT ROBERTUSER on 02/11/18 PROGRESS Observed: 08/28/2017 Status: COMPLETED Source: [place] 4:22 AM [facility] REPOSITORY HNO ID: [id number] Author: Downtime Note Service: (none) Author Type: (none) Type: Progress Notes Filed: 08/28/2017 4:24 AM Note Text: Yesica Scheduled Downtime: 08/27/2017 11:34:32 PM to 08/28/2017 4:17:42 AM XR CERVICAL 2V Observed: 08/11/2017 Status: F Source: [place] AP/LAT 12:11 PM [facility] REPOSITORY * * *Final Report* * * DATE OF EXAM: Aug 11 2017 12:11PM EROS [id number] - XR CERVICAL 2V AP/LAT / PROCEDURE REASON: Post-operative state * * * * Physician Interpretation * * * * Examination: XR CERVICAL 2V AP/LAT TECHNIQUE: XR CERVICAL 2V AP/LAT -- with 2 views on 2 images EXAM DATE: 08/11/2017 12:11 PM CLINICAL HISTORY: post op COMPARISON: 08/03/16 RESULT: Counting reference: Craniocervical junction. Normal alignment of the cervical spine. Normal cervical vertebral body heights. Postsurgical changes of new C4-C5 and C5-C6 disc arthroplasties. There is prevertebral soft tissue swelling with small amount of gas, likely postsurgical. IMPRESSION: POSTSURGICAL CHANGE OF RECENT C4-5 AND C 5-6 DISC ARTHROPLASTIES [employer] Transcribe Date/Time: Aug 11 2017 1:05P Dictated by : KERRY MCCORMACK MD This examination was interpreted and the report reviewed and electronically signed by: ARIANA RHODES MD on Aug 11 2017 1:13PM EST [id number] PROGRESS Observed: 08/11/2017 Status: COMPLETED Source: [place] 7:45 AM [facility] REPOSITORY HNO ID: [id number] Author: Candido Vásquez (Instrumentation And Controls Technician) [place] Service: Neurosurgery Author Type: Nurse Practitioner Type: Progress Notes Filed: 08/11/2017 12:07 PM Note Text: Spine Surgery Team Inpatient Progress Note After 4 PM (1600) please page the resident/fellow from the appropriate team. After 1700, and weekends please page [phone]. Attending: Dr. Nafisa Riley, Neurosurgery, Dr. Aguiar covering later today. Location: [place] [address] Hospital Day: 2 08/10/2017 1 Day Post-Op S/P: C4-5, C5-6 cervical disc arthroplasty C4-5 discectomy and decompression C5-6 discectomy and decompression Events since last progress note: None ASSESSMENT: Cervical DDD with stenosis. PLAN: Planned Date of Discharge: 08/11/2017 Discharge Disposition: Home Active Hospital Problems Diagnosis - Degeneration of intervertebral disc at C4-C5 level - Degeneration of intervertebral disc at C5-C6 level - S/P cervical disc replacement - Acute postoperative pain -Out of bed to chair for meals. -Ambulate pt 3-4 x daily as able. -DC Segura. -Upright C-spine XR before DC. -Pain control: analgesics titrated per consultation with Dr. Nafisa Riley -Plan discussed with Dr. Nafisa Riley - this is POA and being assessed/monitored. - this is POA and being treated with home medications. Monitor: signs, symptoms, disease progression, disease regression Evaluate: test results, medication effectiveness, response to treatment Assess/Address: ordering tests, discussion, review records, counseling Treat: medications, therapies, other modalities -DC planning. - CAD (coronary artery disease) S/p PCI on 12/2011 with FAY to rPDA S/p PCI on 10/27/2013 to the OM3 with a 2.25 x 12mm Resolute Integrity ZES -ASA 81 mg PO daily. -Monitor: signs, symptoms, disease progression, disease regression. -Evaluate: test results, medication effectiveness, response to treatment. PATIENT CHECK LIST: 1. Out of bed and ambulating: Yes Needs PT or OT Evaluation: No 2. Consults requested: No 3. CAUTI Prevention ? Can the segura be removed? Yes ? If NOT, why? No Continued Need For Segura Catheterization 4. Pain - Is the patient currently reporting any pain? Yes. What is the patient's current pain level on a 0 to 10 rating scale? Pain Score: 4/10 - What is the plan for pain management today 08/11/2017? Continue with current analgesics. - Relieved: Yes - PO Pain medications, Ice, Rest and Repositioning - Is patient satisfied with pain control: Yes INTERVAL HPI (Subjective): is a 67 year old male who reports appropriate postop pain and pain is controlled, and denies excessive pain, drainage, nausea, vomiting, chest pain, shortness of breath, light headedness and numbness. Overnight events noted: none. The pt reports mild odynophagia, and denies dysphagia. States that he is swallowing thin liquids, solid food, and pills without much difficulty. States that he had to go home with a Segura after his last surgery. Gait difficulty: No. Distance Able to Walk: unlimited but with pain Bowel / Bladder dysfunction: Yes, urinary hesitancy Pain: Location: neck pain: anterior, arm; bilateral; left > than right. Character: aching, burning, soreness, tenderness and throbbing. Paraesthesias / Sensory: Dermatomal distribution: Non-dermatomal. Numbness Location: left hand Weakness Location: none Duration: hyperacute < 48 hr. Intensity: moderate. Exacerbation: arising from a sitting position, lifting, twisting, backward bending, coughing and sneezing. Remission: sitting, resting, application of cold and medications - analgesics and muscle relaxants. OBJECTIVE: LABS: CBC: Recent Labs 08/11/17 0648 WBC 6.32 HB 12.0* HCT 35.7* PLT 172 MCV 91.3 RDWCV 12.7 NEUTP 61.3 ABSNEUT 3.85 LYMPHP 22.3 MONOP 11.2 EODINP 4.1 BMP: Recent Labs 08/11/17 0648 GLUC 124* NA 142 K 4.2 CHLOR 104 CO2 26 ANION 12 BUN 11 CREAT 0.91 CHEM: Recent Labs 08/11/17 0648 ALB 3.5* CA 8.5 MG 1.9 P 3.4 Estimated Creatinine Clearance: 91 mL/min (based on Cr of 0.91). Body mass index is 26.3 kg/(m2). Drains: None 08/10/17 2159 08/11/17 0210 08/11/17 0629 08/11/17 0845 BP: 138/56 147/76 115/62 148/85 Pulse: 73 70 63 68 Resp: 18 16 17 17 Temp: 37.2 ?C (99 ?F) 36.8 ?C (98.2 ?F) 37.2 ?C (99 ?F) 37.3 ?C (99.2 ?F) TempSrc: Oral Oral Oral Oral SpO2: 97% 95% 96% Weight: Height: General: A AND O x Oriented to: person, place and time, awake, alert and oriented. Speech is Normal, full, fluent. Appears stated age, well built, in no apparent distress. Hand Dominance: right handed. Psychiatric: Mood and affect: Appropriate. Skin: Color, texture, turgor normal. No rashes or lesions - Inspection: No evidence of erythema, warmth, bruising, abrasions, deformity, or lacerations. Positive: Appropriate postop anterior cervical spine incision that is well approximated with steristrips. No drainage is appreciated. CV: RRR without murmur, gallop, or rubs. No ectopy. Respiratory: lungs CTA bilaterally. Negative wheeze, rales, or rhonchi. Abdomen: Abdomen soft, non-tender. BS normal x 4. No masses or organomegaly. Musculoskeletal: Visual Inspection Cervical: WNL Thoracic: WNL Lumbar: WNL Palpation: Spinous Process: Pain, cervical Paraspinals: Pain, cervical Muscle Bulk: Normal and symmetrical in the upper AND lower extremities. Muscle Tone: normal Motor: RIGHT LEFT Finger extension (C7, C8) 5/5 5/5 Finger abduction (C8, T1) 5/5 5/5 Wrist flexion/hand ABduction (C6, C7) 5/5 5/5 Wrist flexion/hand ADduction (C7, C8, T1) 5/5 5/5 Wrist extension/hand ABduction (C5, C6) 5/5 5/5 Elbow flexion w/ forearm supinated (C5, C6) 5/5 5/5 Elbow extension (C6, C7, C8) 5/5 5/5 Arm ABduction (C5, C6) 5/5 5/5 Hip flexion (L1, L2, L2, L4) 5/5 5/5 Knee extension (L2, L3, L4) 5/5 5/5 Knee flexion (L5, S1, S2) 5/5 5/5 Toe dorsiflexion (L5, S1) 5/5 5/5 Foot dorsiflexion (L4, L5) 5/5 5/5 Foot plantarflexion (S1, S2) 5/5 5/5 Foot eversion (L5, S1) 5/5 5/5 Foot inversion (L4, L5) 5/5 5/5 Sensory: intact. Gait: normal-based. Reflexes: RIGHT LEFT Brachioradialis 2+ 2+ Biceps 2+ 2+ Triceps 2+ 2+ Knee 2+ 2+ Achilles 2+ 2+ Long Tract Signs: No clonus, Babinski, or Malloy's. SIGNATURE: Candido Palmer, BE, MATA PATIENT NAME: Liliya Encinas DATE: 08/11/2017 TIME: 9:20 AM PAGER/PHONE: [phone] After 4 PM (1600) please page the resident from the appropriate team. After 1700, and weekends please page [phone]. Per consultation with Dr. Cosme DC the pt with an Rx for Cecil for acute postop pain. > 30 MED are needed d/t type of surgery, postoperative course, and pain not adequately controlled with APAP, and muscle relaxants. OARRS website checked and validated. All prescriptions have been APPROPRIATELY filled. No suspicious activity was identified.- 08/11/2017 by Candido Palmer APRN.MATA LR CBC AND DIFFERENTIAL Collected: 08/11/2017 Status: F Source: [place] 6:48 AM [facility] REPOSITORY TYPE CODE TESTS RESULT OUT OF REFERENCE UNITS RANGE LAB WBC 3.70-11.00 k/uL WBC 6.32 LAB RBC 4.20-6.00 m/uL Low RBC 3.91 LAB HGB 13.0-17.0 g/dL Low Hemoglobin 12.0 LAB HCT 39.0-51.0 % Low Hematocrit 35.7 LAB MCV 80.0-100.0 fL MCV 91.3 LAB MCH 26.0-34.0 pG MCH 30.7 LAB MCHC 30.5-36.0 g/dL MCHC 33.6 LAB RDWCV 11.5-15.0 % RDW-CV 12.7 LAB PLTCT 150-400 k/uL Platelet Count 172 LAB MPV 9.0-12.7 fL MPV 10.0 LAB ANEUT % Neut% 61.3 LAB AANEUT 1.45-7.50 k/uL Abs Neut 3.85 LAB ALYMP % Lymph% 22.3 LAB AALYMP 1.00-4.00 k/uL Abs Lymph 1.41 LAB AMONO % Arroyo% 11.2 LAB AAMONO <0.87 k/uL Abs Arroyo 0.71 LAB AEOS % Eosin% 4.1 LAB AAEOS <0.46 k/uL Abs Eosin 0.26 LAB ABASO % Baso% 1.1 LAB AABASO <0.11 k/uL Abs Baso 0.07 LAB AUNRBC 0 /100 WBC NRBCs 0.0 LAB ABNRBC <0.01 k/uL Absolute nRBC <0.01 LAB DTYP DTYPE Auto Diff Performed By: #### CBCDIF, MG1, RFP #### [facility] [address] [place], [place] [address] MAGNESIUM Collected: 08/11/2017 Status: F Source: [place] 6:48 AM [facility] REPOSITORY TYPE CODE TESTS RESULT OUT OF REFERENCE UNITS RANGE LAB MG 1.7-2.3 mg/dL Magnesium 1.9 Performed By: #### CBCDIF, MG1, RFP #### [facility] [address] [place], [place] [address] RENAL FUNCTION PANEL Collected: 08/11/2017 Status: F Source: [place] 6:48 AM [facility] REPOSITORY TYPE CODE TESTS RESULT OUT OF REFERENCE UNITS RANGE LAB ALB 3.9-4.9 g/dL Low Albumin 3.5 LAB CA 8.5-10.2 mg/dL Calcium, Total 8.5 LAB PHOS 2.7-4.8 mg/dL Phosphorus 3.4 LAB GLU 74-99 mg/dL Glucose High 124 Result Comment: The [place] Diabetes Association (ADA) provides guidance for cutoff values for fasting glucose and random glucose. The ADA defines fasting as no caloric intake for at least 8 hours. Fas ting plasma glucose results between 100 to 125 mg/dL indicate increased risk for diabetes (prediabetes). Fasting plasma glucose results greater than or equal to 126 mg/dL meet the criteria for diagnosis of diabetes. In the absence of unequivocal hyperglycemia, results should be confirmed by repeat testing. In a patient with classic symptoms of hyperglycemia or hyperglycemic crisis, random plasma glucose results greater than or equal to 200 mg/dL meet the criteria for diagnosis of diabetes. Reference: Standards of Medical Care in Diabetes 2016, [place] [employer] Association. Diabetes Care. 2016.39(Suppl 1). LAB BUN 9-24 mg/dL BUN 11 LAB CRET 0.73-1.22 mg/dL Creatinine 0.91 LAB NA 136-144 mmol/L Sodium 142 LAB K 3.7-5.1 mmol/L Potassium 4.2 LAB CL 97-105 mmol/L Chloride 104 LAB CO2 22-30 mmol/L CO2 26 LAB AGAP 9-18 mmol/L Anion Gap 12 LAB GFRAA eGFR- Amer. >60 LAB GFRNAA . eGFR-All Other Races >60 Result Comment: eGFR (Estimated GFR) Units of measure: mL/min/1.73 meters squared eGFR is derived from the reexpressed MDRD Study equation using the following parameters: serum creatinine, age, gender and race. The creatinine assay has been calibrated to be traceable to IDMS. An eGFR <60 mL/min/1.73m2 for >3 months is consistent with chronic kidney disease. Refer to KDOQI guidelines for clinical interpretation. In patients with unstable renal function, e.g. those with acute kidney injury, the eGFR may not accurately reflect actual GFR. Performed By: #### CBCDIF, MG1, RFP #### [facility] [address] [place], [place] [address] PROGRESS Observed: 08/10/2017 Status: COMPLETED Source: [place] 7:51 PM [facility] REPOSITORY HNO ID: [id number] Author: Nafisa Riley Service: Neurosurgery Author Type: Physician Type: Progress Notes Filed: 08/10/2017 7:51 PM Note Text: Staff note, doing well swallowing arm pain resolved ok to dc first thing in am if swallowing well Nafisa Riley MD ANES POST Observed: 08/10/2017 Status: COMPLETED Source: [place] 4:47 PM [facility] REPOSITORY HNO ID: [id number] Author: Radu Mix Service: Anesthesiology Author Type: Anesthesiologist Type: Anesthesia PostOp Filed: 08/10/2017 4:47 PM Note Text: POST ANESTHESIA EVALUATION NOTE SERVICE DATE: 08/10/2017 SERVICE TIME: 4:47 PM : 1950 Vitals: 08/10/17 0702 08/10/17 1303 08/10/17 1530 08/10/17 1620 Temp: 36.4 ?C (97.5 ?F) 36.3 ?C (97.3 ?F) 36 ?C (96.8 ?F) 37.4 ?C (99.4 ?F) 08/10/17 1430 08/10/17 1500 08/10/17 1530 08/10/17 1620 BP: 138/67 138/72 131/72 130/74 08/10/17 1430 08/10/17 1500 08/10/17 1530 08/10/17 1620 Pulse: 75 78 84 68 08/10/17 1430 08/10/17 1500 08/10/17 1530 08/10/17 1620 Resp: 16 15 17 16 08/10/17 1430 08/10/17 1500 08/10/17 1530 08/10/17 1620 SpO2: 96% 96% 96% 96% Validated Vital Signs: Yes POST ANES STATUS: No apparent anesthetic complications. The patient is appropriately hydrated with stable respiratory and cardiovascular status. Patient has safe and adequate airway control. The patient has appropriate pain relief and no significant post operative nausea or vomiting. The patient has achieved baseline mental status. Further assessment by Anesthesia Service: None Other Remarks: SIGNATURE: Radu Mix MD PATIENT NAME: Liliya Encinas DATE: August 10, 2017 TIME: 4:47 PM PAGER/CONTACT #: [id number] NURSING PROG Observed: 08/10/2017 Status: COMPLETED Source: [place] 4:20 PM [facility] REPOSITORY HNO ID: [id number] Author: Carrillo ElmoreRn) [place] Mclean Service: Nursing Author Type: Registered Nurse Type: Nursing Progress Note Filed: 08/10/2017 4:21 PM Note Text: Admission/Transfer Note PATIENT NAME: Liliya Encinas Patient admitted from PACU into [facility] via bed in stable condition. Actions taken: Patient oriented to room, call light function, prescribed activities, Patient rights and Quiet at night. The patient has been instructed to use call light for help. Patient belongings with patient. No futher actions taken at this time. Will continue to monitor and check with patient. This note was completed by: CARRILLO MCLEAN RN NURSING PROG Observed: 08/10/2017 Status: COMPLETED Source: [place] 1:40 PM [facility] REPOSITORY HNO ID: [id number] Author: Rose ElmoreRn) [place] Vasquez Service: (none) Author Type: Registered Nurse Type: Nursing Progress Note Filed: 08/10/2017 1:55 PM Note Text: Nursing Progress Note Patient Name: Liliya Encinas Patient Location: [facility] 001/[facility]- Assumed care of patient, received report from prior nurse, VSS pain tolerable will continue to monitor. This note was completed by: ROSE VASQUEZ RN XR CERVICAL 2V Observed: 08/10/2017 Status: F Source: [place] AP/LAT 1:00 PM [facility] REPOSITORY * * *Final Report* * * DATE OF EXAM: Aug 10 2017 1:00PM ESX [id number] - XR CERVICAL 2V AP/LAT / PROCEDURE REASON: TOTAL CERVICAL DISK REPLACEMENT * * * * Physician Interpretation * * * * EXAMINATION: XR CERVICAL 2V AP/LAT HISTORY: INTRA OP TOTAL CERVICAL DISK REPLACEMENT. TECHNIQUE: XR CERVICAL 2V AP/LAT Laterality: N/A Number of different views (projections): 7 intraoperative spot views. M: XB_1 COMPARISON: None. RESULT: Initial spot views demonstrate marking instrument over the inferior endplate of C5 anteriorly. Second spot view demonstrates a marking instrument over the inferior endplate of C4 anteriorly. Subsequently, screws were placed in the C4 and C5 vertebral bodies anteriorly. This replacements are situated on the final 2 spot views at C4- 5 and C5-6. Alignment is unchanged. No other significant abnormality. IMPRESSION: INTRAOPERATIVE PLANNING AND ASSESSMENT. [employer]: PSCB Transcribe Date/Time: Aug 10 2017 2:47P Dictated by : WILMA EDWARDS MD This examination was interpreted and the report reviewed and electronically signed by: WILMA EDWARDS MD on Aug 10 2017 2:48PM EST [id number] OPERATIVE NO Observed: 08/10/2017 Status: COMPLETED Source: [place] 12:38 PM [facility] REPOSITORY HNO ID: [id number] Author: Saúl Metzger (Fel) Service: Neurosurgery Author Type: Fellow Type: Operative Report Filed: 08/10/2017 12:54 PM Note Text: OPERATIVE NOTE LOG ID: [id number] Surgery/Procedure Date: 08/10/2017 Incision/Procedure Start Time: 9:14 AM Incision Close/Procedure End Time: 1239pm Surgeon(s)/Proceduralist(s) and Floor Technician(s): Surgeon(s) and Role: * Nafisa Riley - Primary * Mona Jacob - Resident - Assisting * Saúl Metzger (Fel) - Fellow No Additional Staff Procedure(s): C4-5, C5-6 cervical disc arthroplasty 1. C4-5 discectomy and decompression 2. Implantation of arthroplasty device in interbody space 3. C5-6 discectomy and decompression 4. Implantation of arthroplasty device in interbody space Indications: LUE radiculopathy and neck pain, cervical DDD, refractory to conservative measures. Anesthesia: General Pt identified and consent verified during huddle. Anesthesia was provided and patient was positioned supine on the OR table. The shoulders were taped and the neck was prepped and draped in normal sterile fashion. TIme out was conducted, abx were addressed. The right side of the neck was approached after xrays were used to plan the level of surgery on the skin. Using the natural skin creases, a 4cm incision was made and dissection was carried through the skin to the level of the platysma. The muscle was split inline, a plane between the neurovascular bundle and the esophagus was identified. Using appropriatte retractors, the pre-vertebral facia was dissected bluntly and the correct levels were identified with a spinal needle placed into the disc space on xray. Once this was done, the longus colli muscles were subperiosteally dissected and retractors placed beneath them keeping vital structures out of the field. Threaded posts were placed into C4 and C5 while ensuring midline and parallelism on fluoro. The large C4 osteophyte was removed with ronald and tiara. The C4-5 discectomy was done with knife, curette, yi and pituitary. The PLL was sectioned and appropriate size 15/15/5 trial was fitted under fluoro. Final implant was selected of this size and placed. Once this was done, threaded post was then placed in the C6 body in similar fashion and after distraction, the C5-6 discectomy was similarly done. The large C5 osteophyte was removed with ronald and tiara. A 15/15/5 implant was trialled and similarly selected for this level also and confirmed on fluoro. The wound was copiously irrigated and hemostasis was maintained. Layered closure was done, reapproximating the platysma and the skin using vicryl suture. Glue was used to close the skin and steri-strips and 4x4 were applied. Pt was awakened from anesthesia and taken to PACU. Dr Riley was present for the entire case, No complications. Findings: Cervical DDD Estimated Blood Loss: 30 mls Specimens: None Complications: None Pre-Op/Pre-Procedure Diagnosis: Cervical DDD and radiculopathy Post-Op/Post-Procedure Diagnosis: Cervical DDD and radiculopathy SIGNATURE: Saúl Metzger MD PATIENT NAME: Liliya Encinas DATE: August 10, 2017 TIME: 12:39 PM PAGER/CONTACT #: [email or web address] OP NOT Observed: 08/10/2017 Status: COMPLETED Source: [place] 12:36 PM [facility] REPOSITORY HNO ID: [id number] Author: Saúl Metzger (Fel) Service: Neurosurgery Author Type: Fellow Type: Brief Op Note Filed: 08/10/2017 12:38 PM Note Text: BRIEF OPERATIVE / PROCEDURE NOTE LOG ID: [id number] Surgery/Procedure Date: 08/10/2017 Incision/Procedure Start Time: 9:14 AM Incision Close/Procedure End Time: 1238pm Surgeon(s)/Proceduralist(s) and Floor Technician(s): Surgeon(s) and Role: * Nafisa Riley - Primary * Mona Jacob - Resident - Assisting * Saúl Metzger (Fel) - Fellow No Additional Staff Procedure(s): C4-5, C5-6 cervical disc arthroplasty Anesthesia: General Findings: Cervical DDD Estimated Blood Loss: 30 mls Specimens: None Complications: None Pre-Op/Pre-Procedure Diagnosis: Cervical radiculopathy Post-Op/Post-Procedure Diagnosis: Cervical radiculopathy SIGNATURE: Saúl Metzger MD PATIENT NAME: Liliya Encinas DATE: August 10, 2017 TIME: 12:37 PM PAGER/CONTACT #: NURSING PROG Observed: 08/10/2017 Status: COMPLETED Source: [place] 7:08 AM [facility] REPOSITORY HNO ID: [id number] Author: Amber Ortiz, [place] Service: (none) Author Type: Registered Nurse Type: Nursing Progress Note Filed: 08/10/2017 7:09 AM Note Text: Nursing Progress Note Patient Name: Liliya Encinas Patient Location: [place] [address] Daily Note:paged Dr. Riley regarding q30-69Ghaijg-ar IC.Thx.[id number] This note was completed by: Amber Ortiz RN NURSING PROG Observed: 08/10/2017 Status: COMPLETED Source: [place] 7:04 AM [facility] REPOSITORY HNO ID: [id number] Author: Amber (Rn) [place] Ortiz Service: (none) Author Type: Registered Nurse Type: Nursing Progress Note Filed: 08/10/2017 7:04 AM Note Text: PRE OP LEARNING ASSESSMENT ? PROCEDURE/SURGERY: SURGERY: logistics READINESS TO LEARN COGNITIVE ABILITY: Alert and oriented MOTIVATION TO LEARN: Interested FAMILY SUPPORT: High - Very involved in pt care PATIENT LEARNS BEST BY: Individual Instruction Verbal Instruction FACTORS AFFECTING LEARNING: None PHYSICAL LIMITATIONS AFFECTING LEARNING: None ? Electronically Signed By: Amber Ortiz RN In Department: HOSP MAIN M021 PROGRESS Observed: 07/20/2017 Status: COMPLETED Source: [place] 4:15 PM [facility] REPOSITORY HNO ID: [id number] Author: Frida ElmoreRn) [place] Easley Service: (none) Author Type: Registered Nurse Type: Progress Notes Filed: 07/20/2017 4:27 PM Note Text: ANESTHESIA PRE-OPERATIVE ASSESSMENT (PACE) SERVICE DATE: 07/20/2017 SERVICE TIME: 4:15pm ASSESSMENT AND PLAN: Liliya Encinas is a 67 year old male scheduled for TOTAL CERV DISK REPLACEMENT C4-5, C5-6 , MICROSURGICAL TECHNIQUE FOR SPINAL PROCEDURES per Surgery Request Case in MAIN on 08/10/2017. PMH: 1. CAD, NSTEMI x2 s/p PCI with stents 2011,2013 (FAY to RCA and OM3), per phone encounter :Based on his recent symptoms and activity, there is no contraindication to surgery from the cardiac point of view. No further diagnostic studies are recommended. Risk of perioperative cardiac complications is low to intermediate. No guarantees were made. Etienne Lowe MD 2. H/O Htn changed jobs decrease stress levels -no medicine 3. HLD on diet management (patient intolerant to statins) 4. Hx of rib fractures (traumatic). Empyema 2007 s/p VATS 5. Lumbar spinal canal stenosis for the above procedure s/p 4 previous lumbar spine surgeries, last on 10/08/2016 6. s/p cervical spine surgery (08/03/2016), degeneration intravertebral disc c4-5, for the above surgery [facility]: 3 FC: 1 METS: Run a short distance (8.00 METs) Patient denies any chest pain or undue shortness of breath with the above physical activity. Patient WILL accept blood products. BLOOD WORK/PRODUCTS ORDERED: Type and Screen HISTORY OF CHRONIC PAIN: No PAIN MANAGEMENT OPTIONS: Routine/PRN IV and Final pain management plan will be discussed on the day of surgery. ANESTHETIC OPTIONS: General and Final anesthesia management options will be discussed on day of surgery. PRE-OP PLAN ORDERED: Not Applicable Patient Instructed: ? No solid food or non-clear liquids after midnight. Clear liquids allowed until two hours before scheduled arrival. ? Patient instructed to take the following medications with a sip of water: none Vital Signs: BP 107/69 Pulse 68 Ht 185.4 cm (6' 1) Wt 89.6 kg (197 lb 8.5 oz) SpO2 100% BMI 26.06 kg/m2 BMI 26.06 kg/(m2) Vital signs completed by: IMPACT Weight acquired: per HANDP. Height acquired: per HANDP Airway Exam: MOUTH OPENING/TMJ: Full jaw ROM MICROGNATHIA/OVERBITE: No MALLAMPATI SCORE is CLASS I UPPER LIP BITE TEST: Class I - Lower incisors can bite the upper lip above the sharon line DENTITION: Caps and/or crowns - upper incisors and Caps and/or crowns - lower incisors THYROMENTAL DIST: WNL SHORT NECK: No NECK CIRCUMFERENCE >40 cm: No NECK FLEX: Full ROM NECK EXTENSION: Full ROM AIRWAY HISTORY: No abnormal airway history ARKS AIRWAY DETAIL: Date of ARKS: 10/08/2016 Airway Adjunct Oral Size: 5 Mask:Yes. Mask Size: 4 Easy Mask:Yes Intubation: Asleep Airway: ETT Oral Size :7.5 mm #Trials: 1. Stylette: Yes. Cricoid pressure:No Intubating Devices: MAC Size: 4. Teaching Purpose: No Grade: I Difficulty Comments: N/A DATA: EKG READING: Unconfirmed - 07/20/2017 Diagnosis:NORMAL SINUS RHYTHM MINIMAL VOLTAGE CRITERIA FOR LVH, MAY BE NORMAL VARIANT BORDERLINE ECG ? Ventricular Rate : 60 ?BPM Atrial Rate : 60 ?BPM P-R Interval : 156 ?ms QRS Duration : 104 ?ms Q-T Interval : 406 ?ms QTC Calculation(Bezet) : 406 ?ms P Fullerton : 53 ?degrees R Fullerton : 63 ?degrees T Fullerton : 58 ?degrees OTHER TESTS: Stress Echo: 09/21/2016 CONCLUSIONS: - Exam indication: Pre-op, hx of CAD - The exercise stress echo was negative for ischemia at 97 % of MPHR (11.7 METS). Good functional capacity for age and gender. No regional wall motion abnormality seen at heart rate achieved. - The left ventricle is normal in size. There is mild concentric left ventricular hypertrophy. Left ventricular systolic function is normal. EF = 61 ? 5% (2D biplane) Indeterminate left ventricular diastolic dysfunction. - The right ventricle is normal in size. Right ventricular systolic function is normal. - The left atrial cavity is mildly dilated. - Exam was compared with the prior echocardiographic exam performed on 10/27/2013. No significant change ? Lab Value Units Date High Low HB No results within date range. HCT No results within date range. WBC No results within date range. PLT No results within date range. NA No results within date range. K No results within date range. GLUC No results within date range. BUN No results within date range. CREAT No results within date range. PTSEC No results within date range. INR No results within date range. APTT No results within date range. ALT No results within date range. AST No results within date range. TBILI No results within date range. TSH No results within date range. Lab Value Units Date High Low HCGQT No results within date range. UHCG No results within date range. HCG, BODY* No results within date range. ABORHD No results within date range. ABSCREEN No results within date range. HBA1C: Hemoglobin A1C (%) Date Value 11/24/2016 5.0 12/12/2011 5.6 ) Patient accompanied by self Case Discussed with Dr. Schwartz OPTIMIZATION STATUS: Patient optimization pending Labs IMPACT EKG IMPACT SIGNATURE: Frida Easley RN PATIENT NAME: Liliya Encinas DATE: July 20, 2017 TIME: 4:15 PM PAGER/CONTACT #: [email or web address] Observed: 07/20/2017 Status: COMPLETED Source: [place] 3:00 PM [facility] REPOSITORY [facility] LILIYA ENCINAS ([id number]) 1950 M Date Time Provider Department 07/20/17 3:00 PM [facility] During your visit today, we recorded the following information about you: Pulse Blood pressure Weight Height 68/minute 107/69 89.6 kg 1.854 m Frida Easley, RN, RN 07/20/2017 4:27 PM Signed ANESTHESIA PRE-OPERATIVE ASSESSMENT (PACE) SERVICE DATE: 07/20/2017 SERVICE TIME: 4:15pm ASSESSMENT ANDamp; PLAN: Liliya Encinas is a 67 year old male scheduled for TOTAL CERV DISK REPLACEMENT C4-5, C5-6 , MICROSURGICAL TECHNIQUE FOR SPINAL PROCEDURES per Surgery Request Case in MAIN on 08/10/2017. PMH: 1. CAD, NSTEMI x2 s/p PCI with stents 2011,2013 (FAY to RCA and OM3), per phone encounter :ANDquot;Based on his recent symptoms and activity, there is no contraindication to surgery from the cardiac point of view. No further diagnostic studies are recommended. Risk of perioperative cardiac complications is low to intermediate. No guarantees were made. Etienne Lowe, HERMINIONDquot; 2. H/O Htn changed jobs decrease stress levels -no medicine 3. HLD on diet management (patient intolerant to statins) 4. Hx of rib fractures (traumatic). Empyema 2006 s/p VATS 5. Lumbar spinal canal stenosis for the above procedure s/p 4 previous lumbar spine surgeries, last on 10/08/2016 6. s/p cervical spine surgery (08/03/2016), degeneration intravertebral disc c4-5, for the above surgery [facility]: 3 FC: 1 METS: Run a short distance (8.00 METs) Patient denies any chest pain or undue shortness of breath with the above physical activity. Patient WILL accept blood products. BLOOD WORK/PRODUCTS ORDERED: Type and Screen HISTORY OF CHRONIC PAIN: No PAIN MANAGEMENT OPTIONS: Routine/PRN IV and Final pain management plan will be discussed on the day of surgery. ANESTHETIC OPTIONS: General and Final anesthesia management options will be discussed on day of surgery. PRE-OP PLAN ORDERED: Not Applicable Patient Instructed: ? No solid food or non-clear liquids after midnight. Clear liquids allowed until two hours before scheduled arrival. ? Patient instructed to take the following medications with a sip of water: none Vital Signs: BP 107/69 Pulse 68 Ht 185.4 cm (6' 1ANDquot;) Wt 89.6 kg (197 lb 8.5 oz) SpO2 100% BMI 26.06 kg/m2 BMI 26.06 kg/(m2) Vital signs completed by: IMPACT Weight acquired: per HANDamp;P. Height acquired: per HANDamp;P Airway Exam: MOUTH OPENING/TMJ: Full jaw ROM MICROGNATHIA/OVERBITE: No MALLAMPATI SCORE is CLASS I UPPER LIP BITE TEST: Class I - Lower incisors can bite the upper lip above the sharon line DENTITION: Caps and/or crowns - upper incisors and Caps and/or crowns - lower incisors THYROMENTAL DIST: WNL SHORT NECK: No NECK CIRCUMFERENCE ANDgt;40 cm: No NECK FLEX: Full ROM NECK EXTENSION: Full ROM AIRWAY HISTORY: No abnormal airway history ARKS AIRWAY DETAIL: Date of ARKS: 10/08/2016 Airway Adjunct Oral Size: 5 Mask:Yes. Mask Size: 4 Easy Mask:Yes Intubation: Asleep Airway: ETT Oral Size :7.5 mm #Trials: 1. Stylette: Yes. Cricoid pressure:No Intubating Devices: MAC Size: 4. Teaching Purpose: No Grade: I Difficulty Comments: N/A DATA: EKG READING: Unconfirmed - 07/20/2017 Diagnosis:NORMAL SINUS RHYTHM MINIMAL VOLTAGE CRITERIA FOR LVH, MAY BE NORMAL VARIANT BORDERLINE ECG ? Ventricular Rate : 60 ?BPM Atrial Rate : 60 ?BPM P-R Interval : 156 ?ms QRS Duration : 104 ?ms Q-T Interval : 406 ?ms QTC Calculation(Bezet) : 406 ?ms P Fullerton : 53 ?degrees R Fullerton : 63 ?degrees T Fullerton : 58 ?degrees OTHER TESTS: Stress Echo: 09/21/2016 CONCLUSIONS: - Exam indication: Pre-op, hx of CAD - The exercise stress echo was negative for ischemia at 97 % of MPHR (11.7 METS). Good functional capacity for age and gender. No regional wall motion abnormality seen at heart rate achieved. - The left ventricle is normal in size. There is mild concentric left ventricular hypertrophy. Left ventricular systolic function is normal. EF = 61 ? 5% (2D biplane) Indeterminate left ventricular diastolic dysfunction. - The right ventricle is normal in size. Right ventricular systolic function is normal. - The left atrial cavity is mildly dilated. - Exam was compared with the prior echocardiographic exam performed on 10/27/2013. No significant change ? Lab Value Units Date High Low HB No results within date range. HCT No results within date range. WBC No results within date range. PLT No results within date range. NA No results within date range. K No results within date range. GLUC No results within date range. BUN No results within date range. CREAT No results within date range. PTSEC No results within date range. INR No results within date range. APTT No results within date range. ALT No results within date range. AST No results within date range. TBILI No results within date range. TSH No results within date range. Lab Value Units Date High Low HCGQT No results within date range. UHCG No results within date range. HCG, BODY* No results within date range. ABORHD No results within date range. ABSCREEN No results within date range. HBA1C: Hemoglobin A1C (%) Date Value 11/24/2016 5.0 12/12/2011 5.6 ) Patient accompanied by self Case Discussed with Dr. Schwartz OPTIMIZATION STATUS: Patient optimization pending Labs IMPACT EKG IMPACT SIGNATURE: Frida Easley RN PATIENT NAME: Liliya Encinas DATE: July 20, 2017 TIME: 4:15 PM PAGER/CONTACT #: Referring Provider: NAFISA RILEY [[id number]] Allergies As of Date: 07/20/2017 Noted Allergy Reaction METOPROLOL 10/31/2013 9 - Itching Comments: insomnia SEASONAL ALLERGIES 04/20/2012 14 - Other: See Comments Date Reviewed: 07/20/2017 Reviewed by: Frida Agustin) [place] Easley - Fully Assessed Primary Visit Diagnosis:Pre-op evaluation [Z01.818] Prescriptions as of 07/20/2017 Sig: ASPIRIN 81 MG TABLET,DELAYED * Take 1 tablet by mouth once d* GABAPENTIN 300 MG CAPSULE Take 1 capsule by mouth twice* CYCLOBENZAPRINE 10 MG TABLET Take 1 tablet by mouth once d* OTC NUTRITIONAL SUPPLEMENT Take 1 capsule by mouth once * OTC NUTRITIONAL SUPPLEMENT Take 2 capsules by mouth valentin* OTC NUTRITIONAL SUPPLEMENT Take 1 capsule by mouth daily* OTC NUTRITIONAL SUPPLEMENT 1 tablet daily ESCITALOPRAM 10 MG TABLET take 1 tablet by mouth once d* OTC NUTRITIONAL SUPPLEMENT Take 3 capsules by mouth valentin* OTC NUTRITIONAL SUPPLEMENT Take 3 capsules daily. OTC NUTRITIONAL SUPPLEMENT Take 1 capsule by mouth daily* OTC NUTRITIONAL SUPPLEMENT Take 3-5 drops daily, with me* OTC NUTRITIONAL SUPPLEMENT Take 2 capsules three times d* Problem List As Of Date 07/20/2017 Noted Resolved PERS HX TOBACCO USE [Z87.891] INVALID FOR* Abdominal pain, epigastric [R10.13] INVALID FOR*02/18/2010 Attention deficit disorder with hyperactivity [*INVALID FOR* NOCTURIA [R35.1] INVALID FOR* Pain in soft tissues of limb [M79.609] INVALID FOR*02/18/2010 Empyema without mention of fistula [J86.9] INVALID FOR*03/31/2017 Pain in joint, shoulder region [M25.519] INVALID FOR*04/06/2017 Esophagitis, unspecified [K20.9] INVALID FOR*04/06/2017 Acute gastritis without mention of hemorrhage [*INVALID FOR*03/31/2017 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 Tear of medial cartilage or meniscus of knee, c*INVALID FOR*04/06/2017 Lumbar radiculopathy [M54.16] INVALID FOR* ED (erectile dysfunction) [N52.9] INVALID FOR* Low testosterone [E34.9] INVALID FOR*03/31/2017 Benign neoplasm of colon [D12.6] INVALID FOR*03/31/2017 SUMMARY [V999.95] INVALID FOR* More... Unstable angina [I20.0] INVALID FOR*07/12/2012 Priority: A More... Hyperlipidemia [E78.5] INVALID FOR* Priority: C More... Sinus infection [J32.9] INVALID FOR*12/12/2011 More... Need for prophylactic measure [Z29.9] INVALID FOR*03/31/2017 More... Tubular adenoma of colon [D12.6] INVALID FOR* Presence of drug coated stent in posterior desc*INVALID FOR* ASCVD (arteriosclerotic cardiovascular disease)*INVALID FOR*03/31/2017 ASHD (arteriosclerotic heart disease) [I25.10] INVALID FOR* Right carpal tunnel syndrome [G56.01] INVALID FOR*04/06/2017 CAD (coronary artery disease) [I25.10] INVALID FOR* Priority: B More... Hypertension [I10] INVALID FOR* Diarrhea [R19.7] INVALID FOR*03/31/2017 More... Non-ST elevation myocardial infarction (NSTEMI)*INVALID FOR* More... Presence of drug coated stent in left circumfle*INVALID FOR* Lumbar foraminal stenosis [M99.83] INVALID FOR*03/31/2017 Lumbar spondylosis [M47.816] INVALID FOR* Priority: A Neural foraminal stenosis of lumbar spine [M99.*INVALID FOR* Priority: A More... Right lumbar radiculopathy [M54.16] INVALID FOR* Priority: C Status post insertion of drug-eluting stent int*INVALID FOR* Anxiety [F41.9] INVALID FOR* Thoracic or lumbosacral neuritis or radiculitis*INVALID FOR*04/06/2017 Lumbosacral spondylosis without myelopathy [M47*INVALID FOR* Hypertriglyceridemia [E78.1] INVALID FOR*03/31/2017 Rotator cuff syndrome of right shoulder [M75.10*INVALID FOR*04/06/2017 Family history of ischemic heart disease [Z82.4*INVALID FOR* Multiple vessel coronary artery disease [I25.10]INVALID FOR*03/31/2017 Statin intolerance [Z78.9] INVALID FOR* Hypogonadism in male [E29.1] Lumbar stenosis [M48.061] INVALID FOR* 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) [E72.12]INVALID FOR* 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 Degeneration of intervertebral disc at C4-C5 le*INVALID FOR* More... Degeneration of intervertebral disc at C5-C6 le*INVALID FOR* More... 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 Encounter Status:Closed by FRIDA EASLEY on 07/20/17 Chart Close Cosign Required by: Peter Schwartz[] HISTORY PHYSICAL Observed: 07/20/2017 Status: COMPLETED Source: [place] 2:13 PM [facility] [place] REPOSITORY HNO ID: [id number] Author: Moon Amaro Service: (none) Author Type: Physician Type: HANDP Filed: 07/20/2017 2:44 PM Note Text: HISTORY AND PHYSICAL EXAMINATION (IMPACT) SERVICE DATE: 07/20/2017 SERVICE TIME: 2:13 PM PRIMARY CARE PHYSICIAN: Lisa Rosado MD CHIEF COMPLAINT/HISTORY OF PRESENT ILLNESS: Mr. Encinas is a 67 year old male referred to me for preoperative evaluation. My final recommendations will be communicated back to the requesting physician/surgeon by the way of the shared medical record. Referring Surgeon: Dr. RILEY Date of Surgery: 08/10/2017 Planned Surgery/Procedure: TOTAL CERV DISK REPLACEMENT C4- 5, C5-6 Indication for Planned Surgery / Procedure: right lumbar radiculopathy Refer to Assessment section for details of any comorbidities. Patient is Able to Perform the Following Physical Activity: Run a short distance (8.00 METs) Patient denies any chest pain or undue shortness of breath with the above physical activity. Patient's functional class is I based on self-reported physical activity. Significant Anesthesia Considerations: None. PAST MEDICAL/SURGICAL/FAMILY/SOCIAL HISTORY PAST MEDICAL HISTORY Diagnosis Date - Acute gastritis without mention of hemorrhage - ADHD (attention deficit hyperactivity disorder) - ASHD (arteriosclerotic heart disease) 04/05/2012 stent x2, Dr. Brown - Benign neoplasm of colon - BPH (benign prostatic hyperplasia) TURP - CTS (carpal tunnel syndrome) - Dyslipidemia - Empyema without mention of fistula 07/26/2006 - Enthesopathy of hip region - Esophagitis, unspecified - Fracture ribs on left, finger, clavicle - Heterozygous MTHFR mutation C677T ([facility]) 01/18/2017 - Hypertension 07/12/2012 - Hypogonadism in male - Insomnia, unspecified - Myalgia and myositis, unspecified - Non-ST elevation myocardial infarction (NSTEMI), initial episode of care ([facility]) 10/27/2013 x2 - PMH - PAST MEDICAL HISTORY OF depression - Shingles - Spinal stenosis Seeing Dr. Riley - Testicular lesion right, s/p removal - Vitamin D insufficiency PAST SURGICAL HISTORY Procedure Laterality Date - CC PCI CORONARY INTERVENT 03/2013 X2 - COLONOSCOP W/ OR W/O [facility] SPEC TA and hyperplastic polyps removed. - COLONOSCOP W/ OR W/O [facility] SPEC 04/13/2017 Colonoscopy - Poor prep - 5 year follow up - COLONOSCOPY W/BX 09/11/11 repeat 5 years - EGD W/O [facility] SPECIMEN W/BX 08/26/07 - HEART SURGERY HX - PAST SURGICAL HISTORY OF removal of right testicle for pre cancer - PAST SURGICAL HISTORY OF 07/26/2006 right lung scrapping and cleaning for impiemia - PAST SURGICAL HISTORY OF remote sinus surgery - PAST SURGICAL HISTORY OF 03/22/2009 microdiscectomy- lumbar - PAST SURGICAL HISTORY OF 05/2009 cerebral meningioma - PAST SURGICAL HISTORY OF 07/2010 Micro discectomy low back - PAST SURGICAL HISTORY OF 07/2013 lumbar discectomy - PAST SURGICAL HISTORY OF Left 04/2015 ankle microfracture, fusion of forefoot - PAST SURGICAL HISTORY OF 2016 L3-L5 revision posterior decompression with TLIF - REPAIR ING HERNIA,5+Y/O,REDUCIBL right Hernia repair, inguinal - REVISE MEDIAN N/CARPAL TUNNEL SURG left Carpal tunnel decomp - REVISE MEDIAN N/CARPAL TUNNEL SURG Right 12/02/2016 Right carpal tunnel release - TRANSURETHRAL ELEC-SURG PROSTATECTOM 09/2007 - VASECTOMY FAMILY HISTORY Problem Relation Age of Onset - None Mother - Heart Father 80 stents x 2 - Arthritis Father SOCIAL HISTORYSocial History Marital status: Spouse name: Steph Years of education: Number of children: 5 Occupational History Occupation Employer Comment [employer] Social History Main Topics Smoking status: Former Smoker Packs/day: 1.00 Years: 10.00 Types: Cigarettes Quit date: 05/03/1977 Smokeless status: Never Used Alcohol use: Yes 7.5 oz/week 5 Glasses of Wine (5oz) per week Drug use: No MEDICATIONS/ALLERGIES Current Outpatient Prescriptions: gabapentin (NEURONTIN) 300 mg capsule Take 1 capsule by mouth twice daily. Disp: 60 capsule Rfl: 2 cyclobenzaprine (FLEXERIL) 10 mg tablet Take 1 tablet by mouth once daily as needed for Muscle Spasm. Disp: 30 tablet Rfl: 2 The Whole Probiotic ([employer]) Take 1 capsule by mouth once daily. Treatment 3-6 months Disp: Rfl: 0 Homocysteine [place] ([employer]) Take 2 capsules by mouth daily with food. Disp: Rfl: 0 B-Complex Plus (Pure Encapsulations) Take 1 capsule by mouth daily with food. Disp: Rfl: 0 ALA max (xymogen) liver/detox support/nerve pain/blood sugar regulation/energy 1 tablet daily Disp: Rfl: 0 escitalopram oxalate (LEXAPRO) 10 mg tablet take 1 tablet by mouth once daily Disp: 30 tablet Rfl: 12 ONE [place] (Pure Encapsulation) Take 3 capsules by mouth daily with food. Disp: Rfl: 0 Magnesium Citrate 150mg 90 ct[address] (Pure Encapsulations) Take 3 capsules daily. Disp: Rfl: 0 [employer] Multivitamin (Pure Encapsulations) Take 1 capsule by mouth daily with food. Disp: Rfl: 0 Vitamin D3 Liquid (Pure Encapsulations) Take 3-5 drops daily, with meals Disp: Rfl: 0 Meriva-SR (Tanvir) Take 2 capsules three times daily. Disp: Rfl: 0 No current facility-administered medications for this visit. ALLERGIES Allergen Reactions - Metoprolol Itching insomnia - Seasonal Allergies Other: See Comments REVIEW OF SYSTEMS General: No weight loss, malaise or fevers. Neuro: No history of TIA's, stroke, WEB MASTER tumor, impaired sensorium, hemiplegia, paraplegia or quadriplegia. No neurological symptoms or problems. Respiratory: pneumonia in 2016 , had empyema Cardiovascular: PTCA / PCI, 2011 and 2013, takes Asa 81 mg qd GI: No history of GI symptoms or problems. No history of esophageal varices, recent ascites, or ETOH greater than 2 drinks per day. : No history of UTI in past 6 weeks. No history of renal failure. Not currently on or requiring dialysis. No history of symptoms or problems. Endocrine: No history of diabetes. Has not taken steroids within the past 30 days. No history of endocrinological symptoms or problems. Hematology: No history of bleeding or clotting disorder. No history of hematological symptoms or problems. Oncology: No history of CA metastasis, chemo within 30 days, or radiotherapy within 90 days. No history of oncological symptoms or problems. Psych: No history of psychiatric symptoms or problems. Skin: Negative for lesions, rash, and itching. PHYSICAL EXAM VITALS: BP 107/69 Pulse 68 Temp (Src) 98.2 (Oral) Ht 6' 1 (1.85m) Wt 197 lb 9.6 oz (89.6kg) SpO2 100% BMI 26.08 kg/(m2). General: Alert and oriented, No acute distress Skin: Normal color, no rash, no lesions. HEENT: EOM, pupils equal, round and reactive. Cardiovascular: Normal S1 AND S2, no rubs, murmurs or gallops. No JVD. Pulse regular. Lungs: Normal breath sounds, no wheezes or crackles. Abdomen: Soft, non-tender, no rigidity. Extremities: No deformity, no edema or tenderness, no joint swelling or clubbing. Neurological: Normal cognition and motor skills. Pulses: Carotid and radial pulses normal +2. ASSESSMENT Mr. Encinas is a 67 year old male referred to me for preoperative evaluation. Patient has the following medical comorbidities which might affect the perioperative course: - CAD of the tunica-biloxi vessel. Status post PCI (with Drug Eluding Stent x 2 implanted on in 2011 and 2013). Stable with no angina at rest or exertion.. Patient's RCRI (Revised Cardiac Risk Index: CAD/CHF/Stroke or TIA/SCr>2/DM on Insulin/High Risk Surgery) score is 1 and is at elevated risk for major adverse cardiac events in the perioperative period. Diagnostic tests reviewed for today's visit: Stress ECHO 08/2016: CONCLUSIONS: - Exam indication: Pre-op, hx of CAD - The exercise stress echo was negative for ischemia at 97 % of MPHR (11.7 METS). Good functional capacity for age and gender. No regional wall motion abnormality seen at heart rate achieved. - The left ventricle is normal in size. There is mild concentric left ventricular hypertrophy. Left ventricular systolic function is normal. EF = 61 ? 5% (2D biplane) Indeterminate left ventricular diastolic dysfunction. - The right ventricle is normal in size. Right ventricular systolic function is normal. - The left atrial cavity is mildly dilated. - Exam was compared with the prior echocardiographic exam performed on 10/27/2013. No significant change PLAN/RECOMMENDATIONS CARDIAC: Patient is at optimal cardiac condition for scheduled surgery / procedure. PULMONARY: Patient is at optimal Pulmonary status for scheduled surgery / procedure. Suggest the following in the post-operative period: Aggressive bronchopulmonary hygiene and Early ambulation VASCULAR/ANTICOAGULATION: VTE prophylaxis as deemed appropriate by the surgical service. Patient is optimally prepared for surgery pending labs ( will discuss with Dr. Templeton and Dr. Riley re Asa periop) Patient Instructions: As per patient instructions section. I have discussed the above recommendations with the patient in detail, in corky and lay terms, and provided a written summary of instructions as needed. We have discussed that no surgery is without risk, but that the goal of preoperative assessment is to optimize that risk, and that was clearly understood by the patient. I have given ample opportunity for the patient to ask questions, and answered all questions to their stated satisfaction. SIGNATURE: Moon Amaro MD PATIENT NAME: Liliya Encinas DATE: July 20, 2017 TIME: 2:13 PM PROGRESS Observed: 07/20/2017 Status: COMPLETED Source: [place] 1:53 PM [facility] REPOSITORY HNO ID: [id number] Author: Goldy Smith LPN Service: (none) Author Type: (none) Type: Progress Notes Filed: 07/20/2017 2:44 PM Note Text: Liliya Encinas is a 67 year old male here today for visit in [facility] Referring Surgeon: Dr. RILEY Date of Surgery: 08/10/2017 Planned Surgery/Procedure: TOTAL CERV DISK REPLACEMENT C4- 5, C5-6 Allergies have been reviewed and verified. They include the following: Metoprolol; Seasonal Allergies Social History Substance Use Topics - Smoking status: Former Smoker Packs/day: 1.00 Years: 10.00 Types: Cigarettes Quit date: 05/03/1977 - Smokeless tobacco: Never Used - Alcohol use 7.5 oz/week 5 Glasses of Wine (5oz) per week Medications reviewed and updated: Yes Goldy Smith LPN CNOV Observed: 07/20/2017 Status: COMPLETED Source: [place] 1:45 PM [facility] REPOSITORY Office Visit (IMPAM[facility]) HUANGLILIYA AHUMADA ([id number]) 1950 M Date Time Provider Department 07/20/17 1:45 PM MOON AMARO During your visit today, we recorded the following information about you: Temperature Pulse Blood pressure Weight 98.2 degrees 68/minute 107/69 89.6 kg Height 1.854 m Goldy Smith LPN 07/20/2017 2:44 PM Signed Liliya Encinas is a 67 year old male here today for visit in [facility] Referring Surgeon: Dr. RILEY Date of Surgery: 08/10/2017 Planned Surgery/Procedure: TOTAL CERV DISK REPLACEMENT C4- 5, C5-6 Allergies have been reviewed and verified. They include the following: Metoprolol; Seasonal Allergies Social History Substance Use Topics - Smoking status: Former Smoker Packs/day: 1.00 Years: 10.00 Types: Cigarettes Quit date: 05/03/1977 - Smokeless tobacco: Never Used - Alcohol use 7.5 oz/week 5 Glasses of Wine (5oz) per week Medications reviewed and updated: Yes Goldy Amaro MD 07/20/2017 2:44 PM Signed HISTORY AND PHYSICAL EXAMINATION (IMPACT) SERVICE DATE: 07/20/2017 SERVICE TIME: 2:13 PM PRIMARY CARE PHYSICIAN: Lisa Rosado MD CHIEF COMPLAINT/HISTORY OF PRESENT ILLNESS: Mr. Encinas is a 67 year old male referred to me for preoperative evaluation. My final recommendations will be communicated back to the requesting physician/surgeon by the way of the shared medical record. Referring Surgeon: Dr. RILEY Date of Surgery: 08/10/2017 Planned Surgery/Procedure: TOTAL CERV DISK REPLACEMENT C4- 5, C5-6 Indication for Planned Surgery / Procedure: right lumbar radiculopathy Refer to Assessment section for details of any comorbidities. Patient is Able to Perform the Following Physical Activity: Run a short distance (8.00 METs) Patient denies any chest pain or undue shortness of breath with the above physical activity. Patient's functional class is I based on self-reported physical activity. Significant Anesthesia Considerations: None. PAST MEDICAL/SURGICAL/FAMILY/SOCIAL HISTORY PAST MEDICAL HISTORY Diagnosis Date - Acute gastritis without mention of hemorrhage - ADHD (attention deficit hyperactivity disorder) - ASHD (arteriosclerotic heart disease) 04/05/2012 stent x2, Dr. Brown - Benign neoplasm of colon - BPH (benign prostatic hyperplasia) TURP - CTS (carpal tunnel syndrome) - Dyslipidemia - Empyema without mention of fistula 07/26/2006 - Enthesopathy of hip region - Esophagitis, unspecified - Fracture ribs on left, finger, clavicle - Heterozygous MTHFR mutation C677T ([facility]) 01/18/2017 - Hypertension 07/12/2012 - Hypogonadism in male - Insomnia, unspecified - Myalgia and myositis, unspecified - Non-ST elevation myocardial infarction (NSTEMI), initial episode of care ([facility]) 10/27/2013 x2 - PMH - PAST MEDICAL HISTORY OF depression - Shingles - Spinal stenosis Seeing Dr. Riley - Testicular lesion right, s/p removal - Vitamin D insufficiency PAST SURGICAL HISTORY Procedure Laterality Date - CC PCI CORONARY INTERVENT 03/2013 X2 - COLONOSCOP W/ OR W/O [facility] SPEC TA and hyperplastic polyps removed. - COLONOSCOP W/ OR W/O [facility] SPEC 04/13/2017 Colonoscopy - Poor prep - 5 year follow up - COLONOSCOPY W/BX 09/11/11 repeat 5 years - EGD W/O [facility] SPECIMEN W/BX 08/26/07 - HEART SURGERY HX - PAST SURGICAL HISTORY OF removal of right testicle for pre cancer - PAST SURGICAL HISTORY OF 07/26/2006 right lung scrapping and cleaning for impiemia - PAST SURGICAL HISTORY OF remote sinus surgery - PAST SURGICAL HISTORY OF 03/22/2009 microdiscectomy- lumbar - PAST SURGICAL HISTORY OF 05/2009 cerebral meningioma - PAST SURGICAL HISTORY OF 07/2010 Micro discectomy low back - PAST SURGICAL HISTORY OF 07/2013 lumbar discectomy - PAST SURGICAL HISTORY OF Left 04/2015 ankle microfracture, fusion of forefoot - PAST SURGICAL HISTORY OF 2016 L3-L5 revision posterior decompression with TLIF - REPAIR ING HERNIA,5+Y/O,REDUCIBL right Hernia repair, inguinal - REVISE MEDIAN N/CARPAL TUNNEL SURG left Carpal tunnel decomp - REVISE MEDIAN N/CARPAL TUNNEL SURG Right 12/02/2016 Right carpal tunnel release - TRANSURETHRAL ELEC-SURG PROSTATECTOM 09/2007 - VASECTOMY FAMILY HISTORY Problem Relation Age of Onset - None Mother - Heart Father 80 stents x 2 - Arthritis Father SOCIAL HISTORYSocial History Marital status: Spouse name: Steph Years of education: Number of children: 5 Occupational History Occupation Employer Comment [employer] Social History Main Topics Smoking status: Former Smoker Packs/day: 1.00 Years: 10.00 Types: Cigarettes Quit date: 05/03/1977 Smokeless status: Never Used Alcohol use: Yes 7.5 oz/week 5 Glasses of Wine (5oz) per week Drug use: No MEDICATIONS/ALLERGIES Current Outpatient Prescriptions: gabapentin (NEURONTIN) 300 mg capsule Take 1 capsule by mouth twice daily. Disp: 60 capsule Rfl: 2 cyclobenzaprine (FLEXERIL) 10 mg tablet Take 1 tablet by mouth once daily as needed for Muscle Spasm. Disp: 30 tablet Rfl: 2 The Whole Probiotic ([employer]) Take 1 capsule by mouth once daily. Treatment 3-6 months Disp: Rfl: 0 Homocysteine [place] ([employer]) Take 2 capsules by mouth daily with food. Disp: Rfl: 0 B-Complex Plus (Pure Encapsulations) Take 1 capsule by mouth daily with food. Disp: Rfl: 0 ALA max (xymogen) liver/detox support/nerve pain/blood sugar regulation/energy 1 tablet daily Disp: Rfl: 0 escitalopram oxalate (LEXAPRO) 10 mg tablet take 1 tablet by mouth once daily Disp: 30 tablet Rfl: 12 ONE [place] (Pure Encapsulation) Take 3 capsules by mouth daily with food. Disp: Rfl: 0 Magnesium Citrate 150mg 90 ct. (Pure Encapsulations) Take 3 capsules daily. Disp: Rfl: 0 [employer] Multivitamin (Pure Encapsulations) Take 1 capsule by mouth daily with food. Disp: Rfl: 0 Vitamin D3 Liquid (Pure Encapsulations) Take 3-5 drops daily, with meals Disp: Rfl: 0 Meriva-SR (Tanvir) Take 2 capsules three times daily. Disp: Rfl: 0 No current facility-administered medications for this visit. ALLERGIES Allergen Reactions - Metoprolol Itching insomnia - Seasonal Allergies Other: See Comments REVIEW OF SYSTEMS General: No weight loss, malaise or fevers. Neuro: No history of TIA's, stroke, WEB MASTER tumor, impaired sensorium, hemiplegia, paraplegia or quadriplegia. No neurological symptoms or problems. Respiratory: pneumonia in 2016 , had empyema Cardiovascular: PTCA / PCI, 2011 and 2013, takes Asa 81 mg qd GI: No history of GI symptoms or problems. No history of esophageal varices, recent ascites, or ETOH greater than 2 drinks per day. : No history of UTI in past 6 weeks. No history of renal failure. Not currently on or requiring dialysis. No history of symptoms or problems. Endocrine: No history of diabetes. Has not taken steroids within the past 30 days. No history of endocrinological symptoms or problems. Hematology: No history of bleeding or clotting disorder. No history of hematological symptoms or problems. Oncology: No history of CA metastasis, chemo within 30 days, or radiotherapy within 90 days. No history of oncological symptoms or problems. Psych: No history of psychiatric symptoms or problems. Skin: Negative for lesions, rash, and itching. PHYSICAL EXAM VITALS: BP 107/69 Pulse 68 Temp (Src) 98.2 (Oral) Ht 6' 1ANDquot; (1.85m) Wt 197 lb 9.6 oz (89.6kg) SpO2 100% BMI 26.08 kg/(m2). General: Alert and oriented, No acute distress Skin: Normal color, no rash, no lesions. HEENT: EOM, pupils equal, round and reactive. Cardiovascular: Normal S1 ANDamp; S2, no rubs, murmurs or gallops. No JVD. Pulse regular. Lungs: Normal breath sounds, no wheezes or crackles. Abdomen: Soft, non-tender, no rigidity. Extremities: No deformity, no edema or tenderness, no joint swelling or clubbing. Neurological: Normal cognition and motor skills. Pulses: Carotid and radial pulses normal +2. ASSESSMENT Mr. Encinas is a 67 year old male referred to me for preoperative evaluation. Patient has the following medical comorbidities which might affect the perioperative course: - CAD of the tunica-biloxi vessel. Status post PCI (with Drug Eluding Stent x 2 implanted on in 2011 and 2013). Stable with no angina at rest or exertion.. Patient's RCRI (Revised Cardiac Risk Index: CAD/CHF/Stroke or TIA/SCrANDgt;2/DM on Insulin/High Risk Surgery) score is 1 and is at elevated risk for major adverse cardiac events in the perioperative period. Diagnostic tests reviewed for today's visit: Stress ECHO 08/2016: CONCLUSIONS: - Exam indication: Pre-op, hx of CAD - The exercise stress echo was negative for ischemia at 97 % of MPHR (11.7 METS). Good functional capacity for age and gender. No regional wall motion abnormality seen at heart rate achieved. - The left ventricle is normal in size. There is mild concentric left ventricular hypertrophy. Left ventricular systolic function is normal. EF = 61 ? 5% (2D biplane) Indeterminate left ventricular diastolic dysfunction. - The right ventricle is normal in size. Right ventricular systolic function is normal. - The left atrial cavity is mildly dilated. - Exam was compared with the prior echocardiographic exam performed on 10/27/2013. No significant change PLAN/RECOMMENDATIONS CARDIAC: Patient is at optimal cardiac condition for scheduled surgery / procedure. PULMONARY: Patient is at optimal Pulmonary status for scheduled surgery / procedure. Suggest the following in the post-operative period: Aggressive bronchopulmonary hygiene and Early ambulation VASCULAR/ANTICOAGULATION: VTE prophylaxis as deemed appropriate by the surgical service. Patient is optimally prepared for surgery pending labs ( will discuss with Dr. Templeton and Dr. Riley re Asa periop) Patient Instructions: As per patient instructions section. I have discussed the above recommendations with the patient in detail, in corky and lay terms, and provided a written summary of instructions as needed. We have discussed that no surgery is without risk, but that the goal of preoperative assessment is to optimize that risk, and that was clearly understood by the patient. I have given ample opportunity for the patient to ask questions, and answered all questions to their stated satisfaction. SIGNATURE: Moon Amaro MD PATIENT NAME: Liliya Encinas DATE: July 20, 2017 TIME: 2:13 PM Moon Amaro MD 07/20/2017 2:30 PM Signed [facility] Patient Instructions for Surgery FOOD INSTRUCTIONS: NO solid food or non-clear liquids for 8 hours prior to the arrival time for your surgery. Unless you are instructed otherwise, you are allowed to drink up to 12 ounces of clear liquids (e.g. water, black tea/coffee, fruit juice without pulp, Cierra Cassidy, etc.) up until 2 hours prior to the arrival time for surgery. MEDICATION INSTRUCTIONS: Prior to Surgery: Do not take the following medications for 7 days prior to surgery: - any NSAID's (e.g. Motrin, Aleve, Arthrotec, Naproxen,etc) - any herbal preparations Do not take any Vitamin E / multivitamins for 10-14 days before surgery You are allowed to take Tylenol if needed until the day of surgery. MEDICATION INSTRUCTIONS: Day/Morning of Surgery: The following medications should be taken with sips of water: Gabapentin, Lexapro Tylenol, if needed for pain, can be taken on morning of surgery. If you have any questions or concerns regarding today's visit please do not hesitate to contact the [facility] at [phone] or [phone], [phone]. Signature: Moon Amaro MD Date: July 20, 2017 Referring Provider: NAFISA RILEY [[id number]] Allergies As of Date: 07/20/2017 Noted Allergy Reaction METOPROLOL 10/31/2013 9 - Itching Comments: insomnia SEASONAL ALLERGIES 04/20/2012 14 - Other: See Comments Date Reviewed: 07/20/2017 Reviewed by: Goldy Smith LPN - Fully Assessed Primary Visit Diagnosis:Coronary artery disease involving tunica-biloxi coronary artery of tunica-biloxi heart without angina pectoris [I25.10] Other Visit Diagnoses:Pre-operative examination [Z01.818] Right lumbar radiculopathy [M54.16] Lumbar radiculopathy [M54.16] Degeneration of intervertebral disc at C4-C5 level [M50.321] Degeneration of intervertebral disc at C5-C6 level [M50.322] Order(s):aspirin, enteric coated (ADULT LOW DOSE ASPIRIN) 81 mg EC tabletTake 1 tablet by mouth once daily.Disp: Rfl: Prescriptions as of 07/20/2017 Sig: GABAPENTIN 300 MG CAPSULE Take 1 capsule by mouth twice* CYCLOBENZAPRINE 10 MG TABLET Take 1 tablet by mouth once d* OTC NUTRITIONAL SUPPLEMENT Take 1 capsule by mouth once * OTC NUTRITIONAL SUPPLEMENT Take 2 capsules by mouth valentin* OTC NUTRITIONAL SUPPLEMENT Take 1 capsule by mouth daily* OTC NUTRITIONAL SUPPLEMENT 1 tablet daily ESCITALOPRAM 10 MG TABLET take 1 tablet by mouth once d* OTC NUTRITIONAL SUPPLEMENT Take 3 capsules by mouth valentin* OTC NUTRITIONAL SUPPLEMENT Take 3 capsules daily. OTC NUTRITIONAL SUPPLEMENT Take 1 capsule by mouth daily* OTC NUTRITIONAL SUPPLEMENT Take 3-5 drops daily, with me* OTC NUTRITIONAL SUPPLEMENT Take 2 capsules three times d* ASPIRIN 81 MG TABLET,DELAYED * Take 1 tablet by mouth once d* Problem List As Of Date 07/20/2017 Noted Resolved PERS HX TOBACCO USE [Z87.891] INVALID FOR* Abdominal pain, epigastric [R10.13] INVALID FOR*02/18/2010 Attention deficit disorder with hyperactivity [*INVALID FOR* NOCTURIA [R35.1] INVALID FOR* Pain in soft tissues of limb [M79.609] INVALID FOR*02/18/2010 Empyema without mention of fistula [J86.9] INVALID FOR*03/31/2017 Pain in joint, shoulder region [M25.519] INVALID FOR*04/06/2017 Esophagitis, unspecified [K20.9] INVALID FOR*04/06/2017 Acute gastritis without mention of hemorrhage [*INVALID FOR*03/31/2017 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 Tear of medial cartilage or meniscus of knee, c*INVALID FOR*04/06/2017 Lumbar radiculopathy [M54.16] INVALID FOR* ED (erectile dysfunction) [N52.9] INVALID FOR* Low testosterone [E34.9] INVALID FOR*03/31/2017 Benign neoplasm of colon [D12.6] INVALID FOR*03/31/2017 SUMMARY [V999.95] INVALID FOR* More... Unstable angina [I20.0] INVALID FOR*07/12/2012 Priority: A More... Hyperlipidemia [E78.5] INVALID FOR* Priority: C More... Sinus infection [J32.9] INVALID FOR*12/12/2011 More... Need for prophylactic measure [Z29.9] INVALID FOR*03/31/2017 More... Tubular adenoma of colon [D12.6] INVALID FOR* Presence of drug coated stent in posterior desc*INVALID FOR* ASCVD (arteriosclerotic cardiovascular disease)*INVALID FOR*03/31/2017 ASHD (arteriosclerotic heart disease) [I25.10] INVALID FOR* Right carpal tunnel syndrome [G56.01] INVALID FOR*04/06/2017 CAD (coronary artery disease) [I25.10] INVALID FOR* Priority: B More... Hypertension [I10] INVALID FOR* Diarrhea [R19.7] INVALID FOR*03/31/2017 More... Non-ST elevation myocardial infarction (NSTEMI)*INVALID FOR* More... Presence of drug coated stent in left circumfle*INVALID FOR* Lumbar foraminal stenosis [M99.83] INVALID FOR*03/31/2017 Lumbar spondylosis [M47.816] INVALID FOR* Priority: A Neural foraminal stenosis of lumbar spine [M99.*INVALID FOR* Priority: A More... Right lumbar radiculopathy [M54.16] INVALID FOR* Priority: C Status post insertion of drug-eluting stent int*INVALID FOR* Anxiety [F41.9] INVALID FOR* Thoracic or lumbosacral neuritis or radiculitis*INVALID FOR*04/06/2017 Lumbosacral spondylosis without myelopathy [M47*INVALID FOR* Hypertriglyceridemia [E78.1] INVALID FOR*03/31/2017 Rotator cuff syndrome of right shoulder [M75.10*INVALID FOR*04/06/2017 Family history of ischemic heart disease [Z82.4*INVALID FOR* Multiple vessel coronary artery disease [I25.10]INVALID FOR*03/31/2017 Statin intolerance [Z78.9] INVALID FOR* Hypogonadism in male [E29.1] Lumbar stenosis [M48.061] INVALID FOR* 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) [E72.12]INVALID FOR* 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 Degeneration of intervertebral disc at C4-C5 le*INVALID FOR* More... Degeneration of intervertebral disc at C5-C6 le*INVALID FOR* More... 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 Other instructions from your clinician: [facility] Patient Instructions for Surgery FOOD INSTRUCTIONS: NO solid food or non-clear liquids for 8 hours prior to the arrival time for your surgery. Unless you are instructed otherwise, you are allowed to drink up to 12 ounces of clear liquids (e.g. water, black tea/coffee, fruit juice without pulp, Cierra Cassidy, etc.) up until 2 hours prior to the arrival time for surgery. MEDICATION INSTRUCTIONS: Prior to Surgery: Do not take the following medications for 7 days prior to surgery: - any NSAID's (e.g. Motrin, Aleve, Arthrotec, Naproxen,etc) - any herbal preparations Do not take any Vitamin E / multivitamins for 10-14 days before surgery You are allowed to take Tylenol if needed until the day of surgery. MEDICATION INSTRUCTIONS: Day/Morning of Surgery: The following medications should be taken with sips of water: Gabapentin, Lexapro Tylenol, if needed for pain, can be taken on morning of surgery. If you have any questions or concerns regarding today's visit please do not hesitate to contact the [facility] at [phone] or [phone], ext [phone]. Signature: Moon Amaro MD Date: July 20, 2017 Prescriptions ordered this encounter Disp Refills Start End ASPIRIN 81 MG TABLET,DELAYED RELEASE 07/20/2017 Class: Med Update Route: ORAL Sig: Take 1 tablet by mouth once daily. Medications Discontinued During This Encounter testosterone (TESTIM) 50 mg/5 g (1%)* 150 g 5 01/26/2017 07/20/2017 Class: Print RX Route: TRANSDERMAL Sig: Apply 5,000 mg as directed once daily. Disc: Discontinued by Patient Encounter Status:Closed by MARTA SILVA MD on 07/20/17 CBC AND DIFFERENTIAL Collected: 07/20/2017 Status: F Source: [place] 1:30 PM [facility] REPOS[facility] TYPE CODE TESTS RESULT OUT OF REFERENCE UNITS RANGE LAB WBC 3.70-11.00 k/uL WBC 5.09 LAB RBC 4.20-6.00 m/uL RBC 4.97 LAB HGB 13.0-17.0 g/dL Hemoglobin 15.3 LAB HCT 39.0-51.0 % Hematocrit 45.2 LAB MCV 80.0-100.0 fL MCV 90.9 LAB MCH 26.0-34.0 pG MCH 30.8 LAB MCHC 30.5-36.0 g/dL MCHC 33.8 LAB RDWCV 11.5-15.0 % RDW-CV 12.7 LAB PLTCT 150-400 k/uL Platelet Count 255 LAB MPV 9.0-12.7 fL MPV 10.4 LAB ANEUT % Neut% 57.0 LAB AANEUT 1.45-7.50 k/uL Abs Neut 2.89 LAB ALYMP % Lymph% 26.9 LAB AALYMP 1.00-4.00 k/uL Abs Lymph 1.37 LAB AMONO % Arroyo% 10.6 LAB AAMONO <0.87 k/uL Abs Arroyo 0.54 LAB AEOS % Eosin% 3.1 LAB AAEOS <0.46 k/uL Abs Eosin 0.16 LAB ABASO % Baso% 2.4 LAB AABASO <0.11 k/uL Abs Baso High 0.12 LAB AUNRBC 0 /100 WBC NRBCs 0.0 LAB ABNRBC <0.01 k/uL Absolute nRBC <0.01 LAB DTYP DTYPE Auto Diff Performed By: #### CBCDIF, BMP #### [facility] [address] [place] [id number] BASIC METABOLIC PANL Collected: 07/20/2017 Status: F Source: [place] 1:30 PM [facility] REPOSITORY TYPE CODE TESTS RESULT OUT OF REFERENCE UNITS RANGE LAB GLU 74-99 mg/dL Glucose 77 Result Comment: The [place] Diabetes Association (ADA) provides guidance for cutoff values for fasting glucose and random glucose. The ADA defines fasting as no caloric intake for at least 8 hours. Fas ting plasma glucose results between 100 to 125 mg/dL indicate increased risk for diabetes (prediabetes). Fasting plasma glucose results greater than or equal to 126 mg/dL meet the criteria for diagnosis of diabetes. In the absence of unequivocal hyperglycemia, results should be confirmed by repeat testing. In a patient with classic symptoms of hyperglycemia or hyperglycemic crisis, random plasma glucose results greater than or equal to 200 mg/dL meet the criteria for diagnosis of diabetes. Reference: Standards of Medical Care in Diabetes 2016, [place] [employer] Association. Diabetes Care. 2016.39(Suppl 1). LAB BUN 9-24 mg/dL BUN 20 LAB CRET 0.73-1.22 mg/dL Creatinine 0.85 LAB NA 136-144 mmol/L Sodium 143 LAB K 3.7-5.1 mmol/L Potassium 4.2 LAB CL 97-105 mmol/L Chloride 101 LAB CO2 22-30 mmol/L CO2 26 LAB AGAP 9-18 mmol/L Anion Gap 16 LAB CA 8.5-10.2 mg/dL Calcium, Total 9.7 LAB GFRAA eGFR- Amer. >60 LAB GFRNAA . eGFR-All Other Races >60 Result Comment: eGFR (Estimated GFR) Units of measure: mL/min/1.73 meters squared eGFR is derived from the reexpressed MDRD Study equation using the following parameters: serum creatinine, age, gender and race. The creatinine assay has been calibrated to be traceable to IDMS. An eGFR <60 mL/min/1.73m2 for >3 months is consistent with chronic kidney disease. Refer to KDOQI guidelines for clinical interpretation. In patients with unstable renal function, e.g. those with acute kidney injury, the eGFR may not accurately reflect actual GFR. Performed By: #### CBCDIF, BMP #### [facility] [address] [place], [place] [address] TYPE AND SCR (30D) Collected: 07/20/2017 Status: F Source: [place] 1:30 PM [facility] REPOSITORY TYPE CODE TESTS RESULT OUT OF REFERENCE UNITS RANGE LAB %ABR B ABO/RH(D) NEGATIVE LAB % Antibody NEG Screen Performed By: #### [id number] #### [facility] [address] [place], [place] [address] PROGRESS Observed: 07/20/2017 Status: COMPLETED Source: [place] 12:51 PM [facility] REPOSITORY HNO ID: [id number] Author: Alfred Mccain (Rt) Service: (none) Author Type: Hand Laminator Type: Progress Notes Filed: 07/20/2017 12:51 PM Note Text: Radiology Service Progress Note PATIENT NAME: Liliya Encinas DATE OF SERVICE: July 20, 2017 TIME: 12:51 PM PATIENT IDENTITY VERIFICATION COMPLETED USING TWO (2) METHODS: Patient confirmed name verbally and Date of . PATIENT GENDER DATA: Male PATIENT RELEVANT IMPLANT DATA REVIEWED: Not Applicable RADIOLOGY DEPARTMENT: General X-ray: Exam(s) Completed: Chest X-Ray PERIPHERAL IV DATA: Not applicable SIGNED BY: RT Dulce July 20, 2017 12:51 PM XR CHEST 2V FRONTAL/LAT Observed: 07/20/2017 Status: F Source: [place] 12:48 PM [facility] REPOSITORY * * *Final Report* * * DATE OF EXAM: Jul 20 2017 12:48PM AOX [id number] - XR CHEST 2V FRONTAL/LAT / PROCEDURE REASON: multiple diagnoses * * * * Physician Interpretation * * * * EXAMINATION: CHEST RADIOGRAPH (2 VIEW FRONTAL and LATERAL) Clinical History: Other cervical disc degeneration at C4- C5 level Other cervical disc degeneration at C5-C6 level Encounter for other preprocedural examination Carrier or suspected carrier of methicillin resistant Staphylococcus aureus MQ: XC2_4 Comparison: None available RESULT: Lines, tubes, and devices: None. Lungs and pleura: No consolidation. Mild atelectasis or scarring in the right lung base, adjacent to subtle lateral peaking of the right hemidiaphragm. No pleural effusion. No pneumothorax. Cardiomediastinal silhouette: Normal cardiomediastinal silhouette. Other: Sequential remote left rib fractures (fifth through ninth), likely posttraumatic. IMPRESSION: No acute radiographic abnormality. See body of report for other details. [employer]: PSCB Transcribe Date/Time: Jul 20 2017 2:01P Dictated by : JAYLEEN BEVERLY MD This examination was interpreted and the report reviewed and electronically signed by: JAYLEEN BEVERLY MD on Jul 20 2017 2:02PM EST [id number] STAPH AUREUS PCR Collected: 07/20/2017 Status: F Source: [place] 11:30 AM [facility] REPOSITORY TYPE CODE TESTS RESULT OUT OF REFERENCE UNITS RANGE LAB SASRC Nasal S aureus Spec Source LAB MRSRES Negative for MRSA MRSA by PCR. PCR LAB SARES Negative for Staph Staphylococcus aureus PCR aureus by PCR. Performed By: #### SAPCR #### [facility] [address] [place], [place] [address] CNNURSE Observed: 07/20/2017 Status: COMPLETED Source: [place] 12:00 AM [facility] REPOSITORY Nurse Visit (SPNSMN) LILIYA ENCINAS ([id number]) 1950 M Date Time Provider Department 07/20/17 MIRELLA YOO (RN) SPNSMN During your visit today, we recorded the following information about you: Mirella Yoo RN 07/20/2017 3:35 PM Signed Met with pt Liliya Encinas for pre op education. Given both written and verbal instructions re: Skin prep, wound care, pain management, and post op restrictions. Discussed Home Care post discharge. Nasal swab obtained. Instructed in treatment of positive results mupirocin to bilateral nares BID for 5 days preop. Questions answered. He states he has to have dilaudid post op, nothing else works. Pt voice(s) understanding. Mirella Yoo RN Allergies As of Date: 07/20/2017 Noted Allergy Reaction METOPROLOL 10/31/2013 9 - Itching Comments: insomnia SEASONAL ALLERGIES 04/20/2012 14 - Other: See Comments Date Reviewed: 07/20/2017 Reviewed by: Goldy Smith LPN - Fully Assessed Primary Visit Diagnosis:Degeneration of intervertebral disc at C4-C5 level [M50.321] Prescriptions as of 07/20/2017 Sig: ASPIRIN 81 MG TABLET,DELAYED * Take 1 tablet by mouth once d* GABAPENTIN 300 MG CAPSULE Take 1 capsule by mouth twice* CYCLOBENZAPRINE 10 MG TABLET Take 1 tablet by mouth once d* OTC NUTRITIONAL SUPPLEMENT Take 1 capsule by mouth once * OTC NUTRITIONAL SUPPLEMENT Take 2 capsules by mouth valentin* OTC NUTRITIONAL SUPPLEMENT Take 1 capsule by mouth daily* OTC NUTRITIONAL SUPPLEMENT 1 tablet daily ESCITALOPRAM 10 MG TABLET take 1 tablet by mouth once d* OTC NUTRITIONAL SUPPLEMENT Take 3 capsules by mouth valentin* OTC NUTRITIONAL SUPPLEMENT Take 3 capsules daily. OTC NUTRITIONAL SUPPLEMENT Take 1 capsule by mouth daily* OTC NUTRITIONAL SUPPLEMENT Take 3-5 drops daily, with me* OTC NUTRITIONAL SUPPLEMENT Take 2 capsules three times d* Problem List As Of Date 07/20/2017 Noted Resolved PERS HX TOBACCO USE [Z87.891] INVALID FOR* Abdominal pain, epigastric [R10.13] INVALID FOR*02/18/2010 Attention deficit disorder with hyperactivity [*INVALID FOR* NOCTURIA [R35.1] INVALID FOR* Pain in soft tissues of limb [M79.609] INVALID FOR*02/18/2010 Empyema without mention of fistula [J86.9] INVALID FOR*03/31/2017 Pain in joint, shoulder region [M25.519] INVALID FOR*04/06/2017 Esophagitis, unspecified [K20.9] INVALID FOR*04/06/2017 Acute gastritis without mention of hemorrhage [*INVALID FOR*03/31/2017 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 Tear of medial cartilage or meniscus of knee, c*INVALID FOR*04/06/2017 Lumbar radiculopathy [M54.16] INVALID FOR* ED (erectile dysfunction) [N52.9] INVALID FOR* Low testosterone [E34.9] INVALID FOR*03/31/2017 Benign neoplasm of colon [D12.6] INVALID FOR*03/31/2017 SUMMARY [V999.95] INVALID FOR* More... Unstable angina [I20.0] INVALID FOR*07/12/2012 Priority: A More... Hyperlipidemia [E78.5] INVALID FOR* Priority: C More... Sinus infection [J32.9] INVALID FOR*12/12/2011 More... Need for prophylactic measure [Z29.9] INVALID FOR*03/31/2017 More... Tubular adenoma of colon [D12.6] INVALID FOR* Presence of drug coated stent in posterior desc*INVALID FOR* ASCVD (arteriosclerotic cardiovascular disease)*INVALID FOR*03/31/2017 ASHD (arteriosclerotic heart disease) [I25.10] INVALID FOR* Right carpal tunnel syndrome [G56.01] INVALID FOR*04/06/2017 CAD (coronary artery disease) [I25.10] INVALID FOR* Priority: B More... Hypertension [I10] INVALID FOR* Diarrhea [R19.7] INVALID FOR*03/31/2017 More... Non-ST elevation myocardial infarction (NSTEMI)*INVALID FOR* More... Presence of drug coated stent in left circumfle*INVALID FOR* Lumbar foraminal stenosis [M99.83] INVALID FOR*03/31/2017 Lumbar spondylosis [M47.816] INVALID FOR* Priority: A Neural foraminal stenosis of lumbar spine [M99.*INVALID FOR* Priority: A More... Right lumbar radiculopathy [M54.16] INVALID FOR* Priority: C Status post insertion of drug-eluting stent int*INVALID FOR* Anxiety [F41.9] INVALID FOR* Thoracic or lumbosacral neuritis or radiculitis*INVALID FOR*04/06/2017 Lumbosacral spondylosis without myelopathy [M47*INVALID FOR* Hypertriglyceridemia [E78.1] INVALID FOR*03/31/2017 Rotator cuff syndrome of right shoulder [M75.10*INVALID FOR*04/06/2017 Family history of ischemic heart disease [Z82.4*INVALID FOR* Multiple vessel coronary artery disease [I25.10]INVALID FOR*03/31/2017 Statin intolerance [Z78.9] INVALID FOR* Hypogonadism in male [E29.1] Lumbar stenosis [M48.061] INVALID FOR* 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 Degeneration of intervertebral disc at C4-C5 le*INVALID FOR* More... Degeneration of intervertebral disc at C5-C6 le*INVALID FOR* More... 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 Visit Notes: >> Mirella Yoo RN WedJul 20, 2017 3:28 PM Status: Signed Met with pt Liliya Encinas for pre op education. Given both written and verbal instructions re: Skin prep, wound care, pain management, and post op restrictions. Discussed Home Care post discharge. Nasal swab obtained. Instructed in treatment of positive results mupirocin to bilateral nares BID for 5 days preop. Questions answered. He states he has to have dilaudid post op, nothing else works. Pt voice(s) understanding. Mirella Yoo RN Encounter Status:Closed by MIRELLA YOO RN on 07/20/17 PT D/C SUMMARY (1) Observed: 07/16/2017 Status: F Source: [place] 4:27 PM [facility] REPOSITORY [facility] [place], [place] [address] Fax REHABILITATION SERVICES DISCHARGE SUMMARY MR#: [id number] Acct: [id number] Name: LILIYA ENCINAS Rep #: [id number] : 1950 67 From: Cert. MURTAZA Harley PT, SHRUTI Referring Dr.: OUT OF [facility] DOCTOR Status: REG RCR Insurance: [facility] - PT D/C Summary It has been my pleasure to treat LILIYA ENCINAS under orders from Out [facility] Doctor, NAFISA GRAFF for the diagnosis of RIGHT LUMBAR RADICULOPATHY ,LUMBAR FACET ARTHROPATHY for a total of 6 visit(s). Discharge Date: Please see the following information for a summary of their discharge status. - Subjective Subjective: Doing well ..Doing ex's on own. Able to get back to prior level of activity. - Pain Bilateral Back Pain Intensity (Out of 10): 0 Bilateral Lower Extremity Pain Intensity (Out of 10): 0 - Objective Objective/Function: POSTURE: WFL. GAIT: NORMAL ARACELY. MMT: QUADS/HAMS 4/5,HIP 4-/5,ANKLE 5/5. LUMBAR ROM: FLEXION MOD LOSS,EXT MOD LOSS. FLEXABLITY:MIN/ MOD LOSS HAM. INSTRUCTED HEP MODIFIED AT HOME. WITH APPROPRIATE INSTRUCTION - Goals Goal 1:: Independant with HEP Goal Progress: Goal Met Goal 2:: Independant with posture /body mechaniics Goal Progress: Goal Met Goal 3:: Patient decrease leg pain by 50% or greater to improve function. Goal Progress: Goal Met Goal 4:: Patient increase strength of transvers/multifidas to good to improve ADLS and job demands . Goal Progress: Goal Met Goal 5:: Patient be able to perform ADL'S ob demands for function of recovery Goal Progress: Goal Met - Plan Plan: D/C - D/C Information If there are questions or concerns regarding this patient's physical therapy, please feel free to call me at [phone]. Thank you for the referral of this patient. Sincerely, Tushar Hinson PT, <Electronically signed by Cert. MURTAZA Harley PT, SHRUTI> 07/16/17 1627 CC: Liliya Bland MD; NAFISA GRAFF; OUT OF [facility] DOCTOR JLHenok Signed HOSP Observed: 06/24/2017 Status: COMPLETED Source: [facility] 12:00 AM CLINIC MAIN CAMPUS REPOSITORY Patient:Liliya Encinas MRN: <[id number]> Height:6' 1(1.854 m) Weight:197 lb 8.5 oz (89.6 kg) Outpatient Medications as of 08/10/17: aspirin, enteric coated (ADULT LOW DOSE ASPIRIN) 81 mg EC tablet cyclobenzaprine (FLEXERIL) 10 mg tablet The Whole Probiotic ([employer]) Homocysteine [place] (Designs for [employer]) B-Complex Plus (Pure Encapsulations) escitalopram oxalate (LEXAPRO) 10 mg tablet ONE [place] (Pure Encapsulation) Magnesium Citrate 150mg 90 ct. (Pure Encapsulations) [employer] Multivitamin (Pure Encapsulations) Vitamin D3 Liquid (Pure Encapsulations) Meriva-SR (Tanvir) Admission/Clinic Administered Medications as of 08/10/17: lidocaine 10 mg/mL (1 %) 1-2 mg injection (XYLOCAINE) lactated ringers infusion ceFAZolin iv piggyback 2 g in D5W (iso-osmotic) 100 mL (ANCEF) Problem List: Personal history of tobacco use, presenting hazards to health [Z87.891] Attention deficit disorder with hyperactivity [F90.9] Nocturia [R35.1] Cavus deformity of foot, acquired [M21.6X9] Herniated lumbar intervertebral disc [M51.26] Benign neoplasm of cerebral meninges (HCC) [D32.0] Hx of colonic polyps [Z86.010] Lumbar radiculopathy [M54.16] ED (erectile dysfunction) [N52.9] SUMMARY [V999.95] Hyperlipidemia [E78.5] Tubular adenoma of colon [D12.6] Presence of drug coated stent in posterior descending branch of right coronary artery [Z95.5] ASHD (arteriosclerotic heart disease) [I25.10] CAD (coronary artery disease) [I25.10] Hypertension [I10] Non-ST elevation myocardial infarction (NSTEMI), initial episode of care ([facility]) [I21.4] Presence of drug coated stent in left circumflex coronary artery [Z95.5] Lumbar spondylosis [M47.816] Neural foraminal stenosis of lumbar spine [M99.83] Right lumbar radiculopathy [M54.16] Status post insertion of drug-eluting stent into right coronary artery for coronary artery disease [Z95.5] Anxiety [F41.9] Lumbosacral spondylosis without myelopathy [M47.817] Family history of ischemic heart disease [Z82.49] Statin intolerance [Z78.9] Hypogonadism in male [E29.1] Lumbar stenosis [M48.061] 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] Heavy metal exposure [Z77.018] Preoperative examination [Z01.818] Degeneration of intervertebral disc at C4-C5 level [M50.321] Degeneration of intervertebral disc at C5-C6 level [M50.322] 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 RILEY Date of Surgery: 08/10/2017 Planned Surgery/Procedure: TOTAL CERV DISK REPLACEMENT C4- 5, C5-6 Allergies have been reviewed and verified. They include the following: Metoprolol; Seasonal Allergies Social History Substance Use Topics - Smoking status: Former Smoker Packs/day: 1.00 Years: 10.00 Types: Cigarettes Quit date: 05/03/1977 - Smokeless tobacco: Never Used - Alcohol use 7.5 oz/week 5 Glasses of Wine (5oz) per week Medications reviewed and updated: Yes Goldy Amaro MD 07/20/2017 2:44 PM Signed HISTORY AND PHYSICAL EXAMINATION (IMPACT) SERVICE DATE: 07/20/2017 SERVICE TIME: 2:13 PM PRIMARY CARE PHYSICIAN: Lisa Rosado MD CHIEF COMPLAINT/HISTORY OF PRESENT ILLNESS: Mr. Encinas is a 67 year old male referred to me for preoperative evaluation. My final recommendations will be communicated back to the requesting physician/surgeon by the way of the shared medical record. Referring Surgeon: Dr. RILEY Date of Surgery: 08/10/2017 Planned Surgery/Procedure: TOTAL CERV DISK REPLACEMENT C4- 5, C5-6 Indication for Planned Surgery / Procedure: right lumbar radiculopathy Refer to Assessment section for details of any comorbidities. Patient is Able to Perform the Following Physical Activity: Run a short distance (8.00 METs) Patient denies any chest pain or undue shortness of breath with the above physical activity. Patient's functional class is I based on self-reported physical activity. Significant Anesthesia Considerations: None. PAST MEDICAL/SURGICAL/FAMILY/SOCIAL HISTORY PAST MEDICAL HISTORY Diagnosis Date - Acute gastritis without mention of hemorrhage - ADHD (attention deficit hyperactivity disorder) - ASHD (arteriosclerotic heart disease) 04/05/2012 stent x2, Dr. Brown - Benign neoplasm of colon - BPH (benign prostatic hyperplasia) TURP - CTS (carpal tunnel syndrome) - Dyslipidemia - Empyema without mention of fistula 07/26/2006 - Enthesopathy of hip region - Esophagitis, unspecified - Fracture ribs on left, finger, clavicle - Heterozygous MTHFR mutation C677T ([facility]) 01/18/2017 - Hypertension 07/12/2012 - Hypogonadism in male - Insomnia, unspecified - Myalgia and myositis, unspecified - Non-ST elevation myocardial infarction (NSTEMI), initial episode of care ([facility]) 10/27/2013 x2 - PMH - PAST MEDICAL HISTORY OF depression - Shingles - Spinal stenosis Seeing Dr. Riley - Testicular lesion right, s/p removal - Vitamin D insufficiency PAST SURGICAL HISTORY Procedure Laterality Date - CC PCI CORONARY INTERVENT 03/2013 X2 - COLONOSCOP W/ OR W/O [facility] SPEC TA and hyperplastic polyps removed. - COLONOSCOP W/ OR W/O [facility]RS SPEC 04/13/2017 Colonoscopy - Poor prep - 5 year follow up - COLONOSCOPY W/BX 09/11/11 repeat 5 years - EGD W/O [facility] SPECIMEN W/BX 08/26/07 - HEART SURGERY HX - PAST SURGICAL HISTORY OF removal of right testicle for pre cancer - PAST SURGICAL HISTORY OF 07/26/2006 right lung scrapping and cleaning for impiemia - PAST SURGICAL HISTORY OF remote sinus surgery - PAST SURGICAL HISTORY OF 03/22/2009 microdiscectomy- lumbar - PAST SURGICAL HISTORY OF 05/2009 cerebral meningioma - PAST SURGICAL HISTORY OF 07/2010 Micro discectomy low back - PAST SURGICAL HISTORY OF 07/2013 lumbar discectomy - PAST SURGICAL HISTORY OF Left 04/2015 ankle microfracture, fusion of forefoot - PAST SURGICAL HISTORY OF 2016 L3-L5 revision posterior decompression with TLIF - REPAIR ING HERNIA,5+Y/O,REDUCIBL right Hernia repair, inguinal - REVISE MEDIAN N/CARPAL TUNNEL SURG left Carpal tunnel decomp - REVISE MEDIAN N/CARPAL TUNNEL SURG Right 12/02/2016 Right carpal tunnel release - TRANSURETHRAL ELEC-SURG PROSTATECTOM 09/2007 - VASECTOMY FAMILY HISTORY Problem Relation Age of Onset - None Mother - Heart Father 80 stents x 2 - Arthritis Father SOCIAL HISTORYSocial History Marital status: Spouse name: Steph Years of education: Number of children: 5 Occupational History Occupation Employer Comment [employer] Social History Main Topics Smoking status: Former Smoker Packs/day: 1.00 Years: 10.00 Types: Cigarettes Quit date: 05/03/1977 Smokeless status: Never Used Alcohol use: Yes 7.5 oz/week 5 Glasses of Wine (5oz) per week Drug use: No MEDICATIONS/ALLERGIES Current Outpatient Prescriptions: gabapentin (NEURONTIN) 300 mg capsule Take 1 capsule by mouth twice daily. Disp: 60 capsule Rfl: 2 cyclobenzaprine (FLEXERIL) 10 mg tablet Take 1 tablet by mouth once daily as needed for Muscle Spasm. Disp: 30 tablet Rfl: 2 The Whole Probiotic ([employer]) Take 1 capsule by mouth once daily. Treatment 3-6 months Disp: Rfl: 0 Homocysteine [place] (OrdrIt) Take 2 capsules by mouth daily with food. Disp: Rfl: 0 B-Complex Plus (Pure Encapsulations) Take 1 capsule by mouth daily with food. Disp: Rfl: 0 ALA max (xymogen) liver/detox support/nerve pain/blood sugar regulation/energy 1 tablet daily Disp: Rfl: 0 escitalopram oxalate (LEXAPRO) 10 mg tablet take 1 tablet by mouth once daily Disp: 30 tablet Rfl: 12 ONE [place] (Pure Encapsulation) Take 3 capsules by mouth daily with food. Disp: Rfl: 0 Magnesium Citrate 150mg 90 ct. (Pure Encapsulations) Take 3 capsules daily. Disp: Rfl: 0 PureGenomics Multivitamin (Pure Encapsulations) Take 1 capsule by mouth daily with food. Disp: Rfl: 0 Vitamin D3 Liquid (Pure Encapsulations) Take 3-5 drops daily, with meals Disp: Rfl: 0 Meriva-SR (Tanvir) Take 2 capsules three times daily. Disp: Rfl: 0 No current facility-administered medications for this visit. ALLERGIES Allergen Reactions - Metoprolol Itching insomnia - Seasonal Allergies Other: See Comments REVIEW OF SYSTEMS General: No weight loss, malaise or fevers. Neuro: No history of TIA's, stroke, WEB MASTER tumor, impaired sensorium, hemiplegia, paraplegia or quadriplegia. No neurological symptoms or problems. Respiratory: pneumonia in 2016 , had empyema Cardiovascular: PTCA / PCI, 2011 and 2013, takes Asa 81 mg qd GI: No history of GI symptoms or problems. No history of esophageal varices, recent ascites, or ETOH greater than 2 drinks per day. : No history of UTI in past 6 weeks. No history of renal failure. Not currently on or requiring dialysis. No history of symptoms or problems. Endocrine: No history of diabetes. Has not taken steroids within the past 30 days. No history of endocrinological symptoms or problems. Hematology: No history of bleeding or clotting disorder. No history of hematological symptoms or problems. Oncology: No history of CA metastasis, chemo within 30 days, or radiotherapy within 90 days. No history of oncological symptoms or problems. Psych: No history of psychiatric symptoms or problems. Skin: Negative for lesions, rash, and itching. PHYSICAL EXAM VITALS: BP 107/69 Pulse 68 Temp (Src) 98.2 (Oral) Ht 6' 1 (1.85m) Wt 197 lb 9.6 oz (89.6kg) SpO2 100% BMI 26.08 kg/(m2). General: Alert and oriented, No acute distress Skin: Normal color, no rash, no lesions. HEENT: EOM, pupils equal, round and reactive. Cardiovascular: Normal S1 AND S2, no rubs, murmurs or gallops. No JVD. Pulse regular. Lungs: Normal breath sounds, no wheezes or crackles. Abdomen: Soft, non-tender, no rigidity. Extremities: No deformity, no edema or tenderness, no joint swelling or clubbing. Neurological: Normal cognition and motor skills. Pulses: Carotid and radial pulses normal +2. ASSESSMENT Mr. Encinas is a 67 year old male referred to me for preoperative evaluation. Patient has the following medical comorbidities which might affect the perioperative course: - CAD of the tunica-biloxi vessel. Status post PCI (with Drug Eluding Stent x 2 implanted on in 2011 and 2013). Stable with no angina at rest or exertion.. Patient's RCRI (Revised Cardiac Risk Index: CAD/CHF/Stroke or TIA/SCr>2/DM on Insulin/High Risk Surgery) score is 1 and is at elevated risk for major adverse cardiac events in the perioperative period. Diagnostic tests reviewed for today's visit: Stress ECHO 08/2016: CONCLUSIONS: - Exam indication: Pre-op, hx of CAD - The exercise stress echo was negative for ischemia at 97 % of MPHR (11.7 METS). Good functional capacity for age and gender. No regional wall motion abnormality seen at heart rate achieved. - The left ventricle is normal in size. There is mild concentric left ventricular hypertrophy. Left ventricular systolic function is normal. EF = 61 ? 5% (2D biplane) Indeterminate left ventricular diastolic dysfunction. - The right ventricle is normal in size. Right ventricular systolic function is normal. - The left atrial cavity is mildly dilated. - Exam was compared with the prior echocardiographic exam performed on 10/27/2013. No significant change PLAN/RECOMMENDATIONS CARDIAC: Patient is at optimal cardiac condition for scheduled surgery / procedure. PULMONARY: Patient is at optimal Pulmonary status for scheduled surgery / procedure. Suggest the following in the post-operative period: Aggressive bronchopulmonary hygiene and Early ambulation VASCULAR/ANTICOAGULATION: VTE prophylaxis as deemed appropriate by the surgical service. Patient is optimally prepared for surgery pending labs ( will discuss with Dr. Templeton and Dr. Riley re Asa periop) Patient Instructions: As per patient instructions section. I have discussed the above recommendations with the patient in detail, in corky and lay terms, and provided a written summary of instructions as needed. We have discussed that no surgery is without risk, but that the goal of preoperative assessment is to optimize that risk, and that was clearly understood by the patient. I have given ample opportunity for the patient to ask questions, and answered all questions to their stated satisfaction. SIGNATURE: Moon Amaro MD PATIENT NAME: Liliya Encinas DATE: July 20, 2017 TIME: 2:13 PM Moon Amaro MD 07/20/2017 2:30 PM Signed [facility] Patient Instructions for Surgery FOOD INSTRUCTIONS: NO solid food or non-clear liquids for 8 hours prior to the arrival time for your surgery. Unless you are instructed otherwise, you are allowed to drink up to 12 ounces of clear liquids (e.g. water, black tea/coffee, fruit juice without pulp, Cierra Cassidy, etc.) up until 2 hours prior to the arrival time for surgery. MEDICATION INSTRUCTIONS: Prior to Surgery: Do not take the following medications for 7 days prior to surgery: - any NSAID's (e.g. Motrin, Aleve, Arthrotec, Naproxen,etc) - any herbal preparations Do not take any Vitamin E / multivitamins for 10-14 days before surgery You are allowed to take Tylenol if needed until the day of surgery. MEDICATION INSTRUCTIONS: Day/Morning of Surgery: The following medications should be taken with sips of water: Gabapentin, Lexapro Tylenol, if needed for pain, can be taken on morning of surgery. If you have any questions or concerns regarding today's visit please do not hesitate to contact the [facility] at [phone] or [phone], ext [phone]. Signature: Moon Amaro MD Date: July 20, 2017 Progress Notes ([facility] MAIN): Frida Easley, RN, RN 07/20/2017 4:27 PM Signed ANESTHESIA PRE-OPERATIVE ASSESSMENT (PACE) SERVICE DATE: 07/20/2017 SERVICE TIME: 4:15pm ASSESSMENT AND PLAN: Liliya Encinas is a 67 year old male scheduled for TOTAL CERV DISK REPLACEMENT C4-5, C5-6 , MICROSURGICAL TECHNIQUE FOR SPINAL PROCEDURES per Surgery Request Case in MAIN on 08/10/2017. PMH: 1. CAD, NSTEMI x2 s/p PCI with stents 2011,2013 (FAY to RCA and OM3), per phone encounter :Based on his recent symptoms and activity, there is no contraindication to surgery from the cardiac point of view. No further diagnostic studies are recommended. Risk of perioperative cardiac complications is low to intermediate. No guarantees were made. Etienne Lowe MD 2. H/O Htn changed jobs decrease stress levels -no medicine 3. HLD on diet management (patient intolerant to statins) 4. Hx of rib fractures (traumatic). Empyema 2007 s/p VATS 5. Lumbar spinal canal stenosis for the above procedure s/p 4 previous lumbar spine surgeries, last on 10/08/2016 6. s/p cervical spine surgery (08/03/2016), degeneration intravertebral disc c4-5, for the above surgery [facility]: 3 FC: 1 METS: Run a short distance (8.00 METs) Patient denies any chest pain or undue shortness of breath with the above physical activity. Patient WILL accept blood products. BLOOD WORK/PRODUCTS ORDERED: Type and Screen HISTORY OF CHRONIC PAIN: No PAIN MANAGEMENT OPTIONS: Routine/PRN IV and Final pain management plan will be discussed on the day of surgery. ANESTHETIC OPTIONS: General and Final anesthesia management options will be discussed on day of surgery. PRE-OP PLAN ORDERED: Not Applicable Patient Instructed: ? No solid food or non-clear liquids after midnight. Clear liquids allowed until two hours before scheduled arrival. ? Patient instructed to take the following medications with a sip of water: none Vital Signs: BP 107/69 Pulse 68 Ht 185.4 cm (6' 1) Wt 89.6 kg (197 lb 8.5 oz) SpO2 100% BMI 26.06 kg/m2 BMI 26.06 kg/(m2) Vital signs completed by: [facility] Weight acquired: per HANDP. Height acquired: per HANDP Airway Exam: MOUTH OPENING/TMJ: Full jaw ROM MICROGNATHIA/OVERBITE: No MALLAMPATI SCORE is CLASS I UPPER LIP BITE TEST: Class I - Lower incisors can bite the upper lip above the sharon line DENTITION: Caps and/or crowns - upper incisors and Caps and/or crowns - lower incisors THYROMENTAL DIST: WNL SHORT NECK: No NECK CIRCUMFERENCE >40 cm: No NECK FLEX: Full ROM NECK EXTENSION: Full ROM AIRWAY HISTORY: No abnormal airway history ARKS AIRWAY DETAIL: Date of ARKS: 10/08/2016 Airway Adjunct Oral Size: 5 Mask:Yes. Mask Size: 4 Easy Mask:Yes Intubation: Asleep Airway: ETT Oral Size :7.5 mm #Trials: 1. Stylette: Yes. Cricoid pressure:No Intubating Devices: MAC Size: 4. Teaching Purpose: No Grade: I Difficulty Comments: N/A DATA: EKG READING: Unconfirmed - 07/20/2017 Diagnosis:NORMAL SINUS RHYTHM MINIMAL VOLTAGE CRITERIA FOR LVH, MAY BE NORMAL VARIANT BORDERLINE ECG ? Ventricular Rate : 60 ?BPM Atrial Rate : 60 ?BPM P-R Interval : 156 ?ms QRS Duration : 104 ?ms Q-T Interval : 406 ?ms QTC Calculation([place]) : 406 ?ms P [place] : 53 ?degrees R [place] : 63 ?degrees T [place] : 58 ?degrees OTHER TESTS: Stress Echo: 09/21/2016 CONCLUSIONS: - Exam indication: Pre-op, hx of CAD - The exercise stress echo was negative for ischemia at 97 % of MPHR (11.7 METS). Good functional capacity for age and gender. No regional wall motion abnormality seen at heart rate achieved. - The left ventricle is normal in size. There is mild concentric left ventricular hypertrophy. Left ventricular systolic function is normal. EF = 61 ? 5% (2D biplane) Indeterminate left ventricular diastolic dysfunction. - The right ventricle is normal in size. Right ventricular systolic function is normal. - The left atrial cavity is mildly dilated. - Exam was compared with the prior echocardiographic exam performed on 10/27/2013. No significant change ? Lab Value Units Date High Low HB No results within date range. HCT No results within date range. WBC No results within date range. PLT No results within date range. NA No results within date range. K No results within date range. GLUC No results within date range. BUN No results within date range. CREAT No results within date range. PTSEC No results within date range. INR No results within date range. APTT No results within date range. ALT No results within date range. AST No results within date range. TBILI No results within date range. TSH No results within date range. Lab Value Units Date High Low HCGQT No results within date range. UHCG No results within date range. HCG, BODY* No results within date range. ABORHD No results within date range. ABSCREEN No results within date range. HBA1C: Hemoglobin A1C (%) Date Value 11/24/2016 5.0 12/12/2011 5.6 ) Patient accompanied by self Case Discussed with Dr. Schwartz OPTIMIZATION STATUS: Patient optimization pending Labs IMPACT EKG IMPACT SIGNATURE: Frida Easley RN PATIENT NAME: Liliya Encinas DATE: July 20, 2017 TIME: 4:15 PM PAGER/CONTACT #: [email or web address] Observed: 06/23/2017 Status: COMPLETED Source: [facility] 12:00 AM [facility] REPOSITORY Patient Update ([facility]) HUANGLILIYA AHUMADA ([id number]) 1950 M Date Time Provider Department 06/23/17 NAFISA RILEY [facility] During your visit today, we recorded the following information about you: Allergies As of Date: 06/23/2017 Noted Allergy Reaction METOPROLOL 10/31/2013 9 - Itching Comments: insomnia SEASONAL ALLERGIES 04/20/2012 14 - Other: See Comments Date Reviewed: 05/18/2017 Reviewed by: Vanessa Mcclure Ma - Fully Assessed Primary Visit Diagnosis:Degeneration of intervertebral disc at C4-C5 level [M50.321] Other Visit Diagnoses:Degeneration of intervertebral disc at C5-C6 level [M50.322] Preoperative examination [Z01.818] 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) [Z22.322] Order(s):CBC + DIFF [SQCBCDIF] Order #: [id number] FUTURE BASIC METABOLIC PNL [SQBMP] Order #: [id number] FUTURE ECG COMPLETE W INTERPRETATION [ECG01] Order #: [id number] FUTURE XR CHEST 2V FRONTAL/LAT [[id number]] Order #: [id number] FUTURE TYPE + SCREEN,30 DAY [FHCGQI45] Order #: [id number] FUTURE CONSULT TO SPINE CENTER [[id number]] Order #: [id number]: 1 CONSULT TO INT MED-IMPACT [[id number]] Order #: [id number]: 1 CONSULT TO ANESTHESIOLOGY [9001] Order #: [id number]: 1 REFER FOR ADMIT INTERVIEW [[id number]] Order #: [id number] CONSULT TO PATIENT EDUCATION [[id number]] Order #: [id number]: 1 STAPH AUREUS PCR [SQSAPCR] Order #: [id number] SURGICAL REQUEST - ELECTIVE [[id number]] Order #: [id number]: 1 Prescriptions as of 06/23/2017 Sig: GABAPENTIN 300 MG CAPSULE Take 1 capsule by mouth twice* CYCLOBENZAPRINE 10 MG TABLET Take 1 tablet by mouth once d* Patient not taking: Reported on 05/18/2017 TESTOSTERONE 50 MG/5 GRAM (1 * Apply 5,000 mg as directed on* OTC NUTRITIONAL SUPPLEMENT Take 1 capsule by mouth once * OTC NUTRITIONAL SUPPLEMENT Take 2 capsules by mouth valentin* OTC NUTRITIONAL SUPPLEMENT Take 1 capsule by mouth daily* OTC NUTRITIONAL SUPPLEMENT 1 tablet daily ESCITALOPRAM 10 MG TABLET take 1 tablet by mouth once d* OTC NUTRITIONAL SUPPLEMENT Take 3 capsules by mouth valentin* OTC NUTRITIONAL SUPPLEMENT Take 3 capsules daily. OTC NUTRITIONAL SUPPLEMENT Take 1 capsule by mouth daily* OTC NUTRITIONAL SUPPLEMENT Take 3-5 drops daily, with me* OTC NUTRITIONAL SUPPLEMENT Take 2 capsules three times d* Problem List As Of Date 06/23/2017 Noted Resolved PERS HX TOBACCO USE [Z87.891] INVALID FOR* Abdominal pain, epigastric [R10.13] INVALID FOR*02/18/2010 Attention deficit disorder with hyperactivity [*INVALID FOR* NOCTURIA [R35.1] INVALID FOR* Pain in soft tissues of limb [M79.609] INVALID FOR*02/18/2010 Empyema without mention of fistula [J86.9] INVALID FOR*03/31/2017 Pain in joint, shoulder region [M25.519] INVALID FOR*04/06/2017 Esophagitis, unspecified [K20.9] INVALID FOR*04/06/2017 Acute gastritis without mention of hemorrhage [*INVALID FOR*03/31/2017 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 Tear of medial cartilage or meniscus of knee, c*INVALID FOR*04/06/2017 Lumbar radiculopathy [M54.16] INVALID FOR* ED (erectile dysfunction) [N52.9] INVALID FOR* Low testosterone [E34.9] INVALID FOR*03/31/2017 Benign neoplasm of colon [D12.6] INVALID FOR*03/31/2017 SUMMARY [V999.95] INVALID FOR* More... Unstable angina [I20.0] INVALID FOR*07/12/2012 Priority: A More... Hyperlipidemia [E78.5] INVALID FOR* Priority: C More... Sinus infection [J32.9] INVALID FOR*12/12/2011 More... Need for prophylactic measure [Z29.9] INVALID FOR*03/31/2017 More... Tubular adenoma of colon [D12.6] INVALID FOR* Presence of drug coated stent in posterior desc*INVALID FOR* ASCVD (arteriosclerotic cardiovascular disease)*INVALID FOR*03/31/2017 ASHD (arteriosclerotic heart disease) [I25.10] INVALID FOR* Right carpal tunnel syndrome [G56.01] INVALID FOR*04/06/2017 CAD (coronary artery disease) [I25.10] INVALID FOR* Priority: B More... Hypertension [I10] INVALID FOR* Diarrhea [R19.7] INVALID FOR*03/31/2017 More... Non-ST elevation myocardial infarction (NSTEMI)*INVALID FOR* More... Presence of drug coated stent in left circumfle*INVALID FOR* Lumbar foraminal stenosis [M99.83] INVALID FOR*03/31/2017 Lumbar spondylosis [M47.816] INVALID FOR* Priority: A Neural foraminal stenosis of lumbar spine [M99.*INVALID FOR* Priority: A More... Right lumbar radiculopathy [M54.16] INVALID FOR* Priority: C Status post insertion of drug-eluting stent int*INVALID FOR* Anxiety [F41.9] INVALID FOR* Thoracic or lumbosacral neuritis or radiculitis*INVALID FOR*04/06/2017 Lumbosacral spondylosis without myelopathy [M47*INVALID FOR* Hypertriglyceridemia [E78.1] INVALID FOR*03/31/2017 Rotator cuff syndrome of right shoulder [M75.10*INVALID FOR*04/06/2017 Family history of ischemic heart disease [Z82.4*INVALID FOR* Multiple vessel coronary artery disease [I25.10]INVALID FOR*03/31/2017 Statin intolerance [Z78.9] INVALID FOR* Hypogonadism in male [E29.1] Lumbar stenosis [M48.061] INVALID FOR* 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) [E72.12]INVALID FOR* 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*INVALID FOR* Heavy metal exposure [Z77.018] INVALID FOR* Follow-up and Disposition History Recorded Encounter Status:Closed by TIA DAY PA-C on 06/24/17 PROGRESS Observed: 06/07/2017 Status: COMPLETED Source: [place] 8:45 AM [facility] [place] REPOSITORY HNO ID: [id number] Author: Nafisa Riley Service: (none) Author Type: Physician Type: Progress Notes Filed: 06/07/2017 9:32 AM Note Text: VV rescheduled Nafisa Riley MD PROGRESS Observed: 05/18/2017 Status: COMPLETED Source: [place] 1:48 PM [facility] [place] RE[facility]ITORY HNO ID: [id number] Author: Jose Chu V Service: (none) Author Type: Physician Type: Progress Notes Filed: 05/18/2017 1:59 PM Note Text: SUBJECTIVE: Mr. Encinas a 67 year old male presents with the complaint of bilateral arm pain, numbness, weakness. He reports that symptoms are worsening, with increasing night pain and difficulty with daily functional activities over the past 2 months. 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 He also has difficulty finding a position of comfort at night, and arm pain bilaterally interferes with sleep. PAST MEDICAL HISTORY Diagnosis Date - Acute gastritis without mention of hemorrhage - ADHD (attention deficit hyperactivity disorder) - ASHD (arteriosclerotic heart disease) 04/05/2012 stent x2, Dr. Brown - Benign neoplasm of colon - BPH (benign prostatic hyperplasia) TURP - CTS (carpal tunnel syndrome) - Dyslipidemia - Empyema without mention of fistula 07/26/2006 - Enthesopathy of hip region - Esophagitis, unspecified - Fracture ribs on left, finger, clavicle - Heterozygous MTHFR mutation C677T ([facility]) 01/18/2017 - Hypertension 07/12/2012 - Hypogonadism in male - Insomnia, unspecified - Myalgia and myositis, unspecified - Non-ST elevation myocardial infarction (NSTEMI), initial episode of care ([facility]) 10/27/2013 x2 - PMH - PAST MEDICAL HISTORY OF depression - Shingles - Spinal stenosis Seeing Dr. Riley - Testicular lesion right, s/p removal - Vitamin D insufficiency PAST SURGICAL HISTORY Procedure Laterality Date - CC PCI CORONARY INTERVENT 03/2013 X2 - COLONOSCOP W/ OR W/O [facility] SPEC TA and hyperplastic polyps removed. - COLONOSCOP W/ OR W/O [facility] SPEC 04/13/2017 Colonoscopy - Poor prep - 5 year follow up - COLONOSCOPY W/BX 09/11/11 repeat 5 years - EGD W/O [facility] SPECIMEN W/BX 08/26/07 - HEART SURGERY HX - PAST SURGICAL HISTORY OF removal of right testicle for pre cancer - PAST SURGICAL HISTORY OF 07/26/2006 right lung scrapping and cleaning for impiemia - PAST SURGICAL HISTORY OF remote sinus surgery - PAST SURGICAL HISTORY OF 03/22/2009 microdiscectomy- lumbar - PAST SURGICAL HISTORY OF 05/2009 cerebral meningioma - PAST SURGICAL HISTORY OF 07/2010 Micro discectomy low back - PAST SURGICAL HISTORY OF 07/2013 lumbar discectomy - PAST SURGICAL HISTORY OF Left 04/2015 ankle microfracture, fusion of forefoot - PAST SURGICAL HISTORY OF 2016 L3-L5 revision posterior decompression with TLIF - REPAIR ING HERNIA,5+Y/O,REDUCIBL right Hernia repair, inguinal - REVISE MEDIAN N/CARPAL TUNNEL SURG left Carpal tunnel decomp - REVISE MEDIAN N/CARPAL TUNNEL SURG Right 12/02/2016 Right carpal tunnel release - TRANSURETHRAL ELEC-SURG PROSTATECTOM 09/2007 - VASECTOMY Current Outpatient Prescriptions on File Prior to Visit: gabapentin (NEURONTIN) 300 mg capsule Take 1 capsule by mouth twice daily. testosterone (TESTIM) 50 mg/5 g (1%) gel Apply 5,000 mg as directed once daily. The Whole Probiotic ([employer]) Take 1 capsule by mouth once daily. 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 B-Complex Plus (Pure Encapsulations) Take 1 capsule by mouth daily with food. ALA max (xymogen) liver/detox support/nerve pain/blood sugar regulation/energy 1 tablet daily escitalopram oxalate (LEXAPRO) 10 mg tablet take 1 tablet by mouth once daily ONE [place] (Pure Encapsulation) Take 3 capsules by mouth daily with food. Magnesium Citrate 150mg 90 ct[address] (Pure Encapsulations) Take 3 capsules daily. [employer] Multivitamin (Pure Encapsulations) Take 1 capsule by mouth daily with food. Vitamin D3 Liquid (Pure Encapsulations) Take 3-5 drops daily, with meals Meriva-SR (Tanvir) Take 2 capsules three times daily. cyclobenzaprine (FLEXERIL) 10 mg tablet Take 1 tablet by mouth once daily as needed for Muscle Spasm. (Patient not taking: Reported on 05/18/2017 ) No current facility-administered medications on file prior to visit. Social History Marital status: Spouse name: Steph Years of education: Number of children: 5 Occupational History Occupation Employer Comment [employer] Social History Main Topics Smoking status: Former Smoker Packs/day: 1.00 Years: 10.00 Types: Cigarettes Quit date: 05/03/1977 Smokeless status: Never Used Alcohol use: Yes 7.5 oz/week 5 Glasses of Wine (5oz) per week Drug use: No EXAMINATION: [id number]: Scoliosis: No Pelvic Tilt: No LATERAL: Cervical Lordosis: No Thoracic Kyphosis: No Lumbar Lordosis: No RANGE OF MOTION CERVICAL: Flexion: Limited Extension: Limited Rotation L: Not Limited Rotation R: Not Limited Side Bending R: Not Limited Side Bending L: Not Limited Gait: Normal STRENGTH (0-5): R L Deltoid (AB:C5,6): 5 5 Biceps (Flex:C5,6): 5 5 Wrist Ext.(C6,7): 5 5 Interrosei (C8,T1): 5 5 Proprioception: WNL PHYSICAL EXAMINATION: GENERAL APPEARANCE: Well appearing, in no acute distress SKIN: Skin color, texture, turgor normal. No rashes or lesions. HEAD: Normocephalic. No masses, lesions, tenderness or abnormalities EYES: Conjunctivae/corneas clear. Pupils are equally round and reactive to light. Extraocular movements are intact. Recent MRI of the cervical spine on May 12, 2017, and CT of lumbar spine on May 12, 2017 are reviewed with the patient, results are present in EPIC IMPRESSION: Multilevel degenerative disc disease cervical spine, most prominent at C4 5 and at C5 6, with canal stenosis worst at C4 5 Postsurgical and degenerative changes of the lumbar spine PLAN: At this point, Mr. Encinas states that he wishes to pursue further evaluation and treatment for cervical spine. He would like referral back to Dr. Nafisa Riley to discuss surgical intervention if necessary. Until then, he will continue with physical therapy, gabapentin and Tylenol as directed for symptom relief, activity modification is necessary. DO Jose De Leon DO PROGRESS Observed: 05/18/2017 Status: COMPLETED Source: [place] 9:26 AM [facility] REPOSITORY HNO ID: [id number] Author: Vanessa Mcclure Ma Service: (none) Author Type: (none) Type: Progress Notes Filed: 05/18/2017 1:59 PM Note Text: Patient presents with: Established Patient: 4 month follow up left C5 radiculopathy AMB ROOMING INTAKE FLOWSHEET DATA Risk Screening Do you have concerns about personal safety or safety in the home?: No Pain Pain Score: 4/10 Pain Location: (Left shoulder blade and arm) Description: Sharp Duration Amount of Time: (Ongoing - increased 2 months ago) Frequency: Continuous Intervention: Medication Patient states his left shoulder blade and arm pain has increased in the past 2 months. Taking Gabapentin and Tylenol Extra Strength for the pain and helps some. Patient had a CT scan and MRI done on 05/12/17 that was ordered by Dr. Riley. Here to discuss results. CNOV Observed: 05/18/2017 Status: COMPLETED Source: [place] 9:20 AM [facility] REPOSITORY Office Visit ([facility]) LILIYA ENCINAS ([id number]) 1950 M Date Time Provider Department 05/18/17 9:20 AM JOSE CHU During your visit today, we recorded the following information about you: Vanessa Mcclure Ma 05/18/2017 1:59 PM Signed Patient presents with: Established Patient: 4 month follow up left C5 radiculopathy AMB ROOMING INTAKE FLOWSHEET DATA Risk Screening Do you have concerns about personal safety or safety in the home?: No Pain Pain Score: 4/10 Pain Location: (Left shoulder blade and arm) Description: Sharp Duration Amount of Time: (Ongoing - increased 2 months ago) Frequency: Continuous Intervention: Medication Patient states his left shoulder blade and arm pain has increased in the past 2 months. Taking Gabapentin and Tylenol Extra Strength for the pain and helps some. Patient had a CT scan and MRI done on 05/12/17 that was ordered by Dr. Riley. Here to discuss results. Jose Chu DO 05/18/2017 1:59 PM Signed SUBJECTIVE: Mr. Encinas a 67 year old male presents with the complaint of bilateral arm pain, numbness, weakness. He reports that symptoms are worsening, with increasing night pain and difficulty with daily functional activities over the past 2 months. 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 He also has difficulty finding a position of comfort at night, and arm pain bilaterally interferes with sleep. PAST MEDICAL HISTORY Diagnosis Date - Acute gastritis without mention of hemorrhage - ADHD (attention deficit hyperactivity disorder) - ASHD (arteriosclerotic heart disease) 04/05/2012 stent x2, Dr. Brown - Benign neoplasm of colon - BPH (benign prostatic hyperplasia) TURP - CTS (carpal tunnel syndrome) - Dyslipidemia - Empyema without mention of fistula 07/26/2006 - Enthesopathy of hip region - Esophagitis, unspecified - Fracture ribs on left, finger, clavicle - Heterozygous MTHFR mutation C677T ([facility]) 01/18/2017 - Hypertension 07/12/2012 - Hypogonadism in male - Insomnia, unspecified - Myalgia and myositis, unspecified - Non-ST elevation myocardial infarction (NSTEMI), initial episode of care ([facility]) 10/27/2013 x2 - PMH - PAST MEDICAL HISTORY OF depression - Shingles - Spinal stenosis Seeing Dr. Riley - Testicular lesion right, s/p removal - Vitamin D insufficiency PAST SURGICAL HISTORY Procedure Laterality Date - CC PCI CORONARY INTERVENT 03/2013 X2 - COLONOSCOP W/ OR W/O [facility] SPEC TA and hyperplastic polyps removed. - COLONOSCOP W/ OR W/O [facility] SPEC 04/13/2017 Colonoscopy - Poor prep - 5 year follow up - COLONOSCOPY W/BX 09/11/11 repeat 5 years - EGD W/O [facility] SPECIMEN W/BX 08/26/07 - HEART SURGERY HX - PAST SURGICAL HISTORY OF removal of right testicle for pre cancer - PAST SURGICAL HISTORY OF 07/26/2006 right lung scrapping and cleaning for impiemia - PAST SURGICAL HISTORY OF remote sinus surgery - PAST SURGICAL HISTORY OF 03/22/2009 microdiscectomy- lumbar - PAST SURGICAL HISTORY OF 05/2009 cerebral meningioma - PAST SURGICAL HISTORY OF 07/2010 Micro discectomy low back - PAST SURGICAL HISTORY OF 07/2013 lumbar discectomy - PAST SURGICAL HISTORY OF Left 04/2015 ankle microfracture, fusion of forefoot - PAST SURGICAL HISTORY OF 2016 L3-L5 revision posterior decompression with TLIF - REPAIR ING HERNIA,5+Y/O,REDUCIBL right Hernia repair, inguinal - REVISE MEDIAN N/CARPAL TUNNEL SURG left Carpal tunnel decomp - REVISE MEDIAN N/CARPAL TUNNEL SURG Right 12/02/2016 Right carpal tunnel release - TRANSURETHRAL ELEC-SURG PROSTATECTOM 09/2007 - VASECTOMY Current Outpatient Prescriptions on File Prior to Visit: gabapentin (NEURONTIN) 300 mg capsule Take 1 capsule by mouth twice daily. testosterone (TESTIM) 50 mg/5 g (1%) gel Apply 5,000 mg as directed once daily. The Whole Probiotic ([employer]) Take 1 capsule by mouth once daily. 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 B-Complex Plus (Pure Encapsulations) Take 1 capsule by mouth daily with food. ALA max (xymogen) liver/detox support/nerve pain/blood sugar regulation/energy 1 tablet daily escitalopram oxalate (LEXAPRO) 10 mg tablet take 1 tablet by mouth once daily ONE [place] (Pure Encapsulation) Take 3 capsules by mouth daily with food. Magnesium Citrate 150mg 90 ct[address] (Pure Encapsulations) Take 3 capsules daily. [employer] Multivitamin (Pure Encapsulations) Take 1 capsule by mouth daily with food. Vitamin D3 Liquid (Pure Encapsulations) Take 3-5 drops daily, with meals Meriva-SR (Tavnir) Take 2 capsules three times daily. cyclobenzaprine (FLEXERIL) 10 mg tablet Take 1 tablet by mouth once daily as needed for Muscle Spasm. (Patient not taking: Reported on 05/18/2017 ) No current facility-administered medications on file prior to visit. Social History Marital status: Spouse name: Steph Years of education: Number of children: 5 Occupational History Occupation Employer Comment [employer] Social History Main Topics Smoking status: Former Smoker Packs/day: 1.00 Years: 10.00 Types: Cigarettes Quit date: 05/03/1977 Smokeless status: Never Used Alcohol use: Yes 7.5 oz/week 5 Glasses of Wine (5oz) per week Drug use: No EXAMINATION: [id number]: Scoliosis: No Pelvic Tilt: No LATERAL: Cervical Lordosis: No Thoracic Kyphosis: No Lumbar Lordosis: No RANGE OF MOTION CERVICAL: Flexion: Limited Extension: Limited Rotation L: Not Limited Rotation R: Not Limited Side Bending R: Not Limited Side Bending L: Not Limited Gait: Normal STRENGTH (0-5): R L Deltoid (AB:C5,6): 5 5 Biceps (Flex:C5,6): 5 5 Wrist Ext.(C6,7): 5 5 Interrosei (C8,T1): 5 5 Proprioception: WNL PHYSICAL EXAMINATION: GENERAL APPEARANCE: Well appearing, in no acute distress SKIN: Skin color, texture, turgor normal. No rashes or lesions. HEAD: Normocephalic. No masses, lesions, tenderness or abnormalities EYES: Conjunctivae/corneas clear. Pupils are equally round and reactive to light. Extraocular movements are intact. Recent MRI of the cervical spine on May 12, 2017, and CT of lumbar spine on May 12, 2017 are reviewed with the patient, results are present in EPIC IMPRESSION: Multilevel degenerative disc disease cervical spine, most prominent at C4 5 and at C5 6, with canal stenosis worst at C4 5 Postsurgical and degenerative changes of the lumbar spine PLAN: At this point, Mr. Encinas states that he wishes to pursue further evaluation and treatment for cervical spine. He would like referral back to Dr. Nafisa Riley to discuss surgical intervention if necessary. Until then, he will continue with physical therapy, gabapentin and Tylenol as directed for symptom relief, activity modification is necessary. DO Jose De Leon DO Referring Provider: SELF [[id number]] Allergies As of Date: 05/18/2017 Noted Allergy Reaction METOPROLOL 10/31/2013 9 - Itching Comments: insomnia SEASONAL ALLERGIES 04/20/2012 14 - Other: See Comments Date Reviewed: 05/18/2017 Reviewed by: Vanessa Mcclure Ma - Fully Assessed Reason for Visit: Established Patient [175] Cmt: 4 month follow up left C5 radiculopathy Reason For Visit History Recorded Primary Visit Diagnosis:Degenerative disc disease, cervical [M50.30] Prescriptions as of 05/18/2017 Sig: GABAPENTIN 300 MG CAPSULE Take 1 capsule by mouth twice* TESTOSTERONE 50 MG/5 GRAM (1 * Apply 5,000 mg as directed on* OTC NUTRITIONAL SUPPLEMENT Take 1 capsule by mouth once * OTC NUTRITIONAL SUPPLEMENT Take 2 capsules by mouth valentin* OTC NUTRITIONAL SUPPLEMENT Take 1 capsule by mouth daily* OTC NUTRITIONAL SUPPLEMENT 1 tablet daily ESCITALOPRAM 10 MG TABLET take 1 tablet by mouth once d* OTC NUTRITIONAL SUPPLEMENT Take 3 capsules by mouth valentin* OTC NUTRITIONAL SUPPLEMENT Take 3 capsules daily. OTC NUTRITIONAL SUPPLEMENT Take 1 capsule by mouth daily* OTC NUTRITIONAL SUPPLEMENT Take 3-5 drops daily, with me* OTC NUTRITIONAL SUPPLEMENT Take 2 capsules three times d* CYCLOBENZAPRINE 10 MG TABLET Take 1 tablet by mouth once d* Patient not taking: Reported on 05/18/2017 Medication notes this encounter GABAPENTIN 300 MG CAPSULE >> Vanessa Mcclure Ma 05/18/2017 9:24 AM >> VANESSA MCCLURE MA May 18, 2017 9:24 AM Takes 1 1/2 tablets at bedtime Problem List As Of Date 05/18/2017 Noted Resolved PERS HX TOBACCO USE [Z87.891] INVALID FOR* Abdominal pain, epigastric [R10.13] INVALID FOR*02/18/2010 Attention deficit disorder with hyperactivity [*INVALID FOR* NOCTURIA [R35.1] INVALID FOR* Pain in soft tissues of limb [M79.609] INVALID FOR*02/18/2010 Empyema without mention of fistula [J86.9] INVALID FOR*03/31/2017 Pain in joint, shoulder region [M25.519] INVALID FOR*04/06/2017 Esophagitis, unspecified [K20.9] INVALID FOR*04/06/2017 Acute gastritis without mention of hemorrhage [*INVALID FOR*03/31/2017 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 Tear of medial cartilage or meniscus of knee, c*INVALID FOR*04/06/2017 Lumbar radiculopathy [M54.16] INVALID FOR* ED (erectile dysfunction) [N52.9] INVALID FOR* Low testosterone [E34.9] INVALID FOR*03/31/2017 Benign neoplasm of colon [D12.6] INVALID FOR*03/31/2017 SUMMARY [V999.95] INVALID FOR* More... Unstable angina [I20.0] INVALID FOR*07/12/2012 Priority: A More... Hyperlipidemia [E78.5] INVALID FOR* Priority: C More... Sinus infection [J32.9] INVALID FOR*12/12/2011 More... Need for prophylactic measure [Z29.9] INVALID FOR*03/31/2017 More... Tubular adenoma of colon [D12.6] INVALID FOR* Presence of drug coated stent in posterior desc*INVALID FOR* ASCVD (arteriosclerotic cardiovascular disease)*INVALID FOR*03/31/2017 ASHD (arteriosclerotic heart disease) [I25.10] INVALID FOR* Right carpal tunnel syndrome [G56.01] INVALID FOR*04/06/2017 CAD (coronary artery disease) [I25.10] INVALID FOR* Priority: B More... Hypertension [I10] INVALID FOR* Diarrhea [R19.7] INVALID FOR*03/31/2017 More... Non-ST elevation myocardial infarction (NSTEMI)*INVALID FOR* More... Presence of drug coated stent in left circumfle*INVALID FOR* Lumbar foraminal stenosis [M99.83] INVALID FOR*03/31/2017 Lumbar spondylosis [M47.816] INVALID FOR* Priority: A Neural foraminal stenosis of lumbar spine [M99.*INVALID FOR* Priority: A More... 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 0297 - MRI CERVICAL SPINE WO IVCON / PROCEDURE REASON: Cervical disc disorder with radiculopathy, unspecified cervical region * * * * Physician Interpretation * * * * EXAMINATION: MRI CERVICAL SPINE WO IVCON CLINICAL HISTORY: Radiculopathy. TECHNIQUE: Routine cervical spine MR protocol without gadolinium. COMPARISON: None. RESULT: Study is mildly degraded by motion. Counting reference: Craniocervical junction. Alignment: Alignment is anatomic. Moderate loss of disc height at C4-C5 and C3 loss at C5-C6 reflecting degeneration. Craniocervical junction: Craniocervical junction is normal. Cord: The visualized cord is within normal limits of signal intensity and morphology. Bone marrow signal/fracture: No evidence of pathologic marrow infiltration. No evidence of prior fracture. Cervical soft tissues: The paraspinal soft tissues are within normal limits. C2-C3: Canal and foramina are patent. C3-C4: Canal and foramina are patent. C4-C5: Mild-moderate narrowing of the spinal canal due to disc osteophyte complex. Bilateral moderate neural foraminal stenosis due to uncovertebral joint hypertrophy. C5-C6: Mild narrowing of the spinal canal due to disc osteophyte complex. Mild right and moderate left neural foraminal stenosis due to uncovertebral joint hypertrophy. C6-C7: Canal and foramina are patent. C7-T1: Canal and foramina are patent. IMPRESSION: MODERATE-SEVERE DEGENERATIVE DISC DISEASE AT C4-C5 AND C5- C6. CANAL STENOSIS IS WORST AT C4-C5. NO FOCAL PROTRUSION OR EXTRUSION. MODERATE NEURAL FORAMINAL STENOSES AT BILATERAL C4-C5 AND LEFT C5-C6. 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 [employer]: AMADA Transcribe Date/Time: May 12 2017 5:49P Dictated by : ISAI GRIFFITH MD This examination was interpreted and the report reviewed and electronically signed by: ISAI GRIFFITH MD on May 12 2017 5:52PM EST [id number] PROGRESS Observed: 05/12/2017 Status: COMPLETED Source: [place] 4:40 PM [facility] REPOSITORY HNO ID: [id number] Author: Alisha San Service: (none) Author Type: (none) Type: Progress Notes Filed: 05/12/2017 4:40 PM Note Text: Radiology Service Progress Note PATIENT NAME: Liliya Encinas DATE OF SERVICE: May 12, 2017 TIME: 4:40 PM PATIENT IDENTITY VERIFICATION COMPLETED USING TWO (2) METHODS: Patient confirmed name verbally and Date of . PATIENT GENDER DATA: Male PATIENT RELEVANT IMPLANT DATA REVIEWED: Yes RADIOLOGY DEPARTMENT: MR; Exam(s) Completed: Spine: Cervical spine PERIPHERAL IV DATA: Not applicable SIGNED BY: Alisha Ervin Rt May 12, 2017 4:40 PM PROGRESS Observed: 05/12/2017 Status: COMPLETED Source: [place] 3:21 PM [facility] REPOSITORY HNO ID: [id number] Author: Zenia Lee Ct Service: (none) Author Type: (none) Type: Progress Notes Filed: 05/12/2017 3:22 PM Note Text: Radiology Service Progress Note PATIENT NAME: Liliya Encinas DATE OF SERVICE: May 12, 2017 TIME: 3:21 PM PATIENT IDENTITY VERIFICATION COMPLETED USING TWO (2) METHODS: Patient confirmed name verbally and Date of . PATIENT GENDER DATA: Male PATIENT RELEVANT IMPLANT DATA REVIEWED: Not Applicable RADIOLOGY DEPARTMENT: CT; Exam(s) Completed: Spine PERIPHERAL IV DATA: Not applicable SIGNED BY: Zenia Lee Ct May 12, 2017 3:[address] LUMBAR SPINE WO Observed: 05/12/2017 Status: F Source: [facility] 3:20 PM [facility] REPOSITORY * * *Final Report* * * DATE OF EXAM: May 12 2017 3:20PM [facility] 0508 - CT LUMBAR SPINE WO IVCON / PROCEDURE REASON: Radiculopathy, lumbar region * * * * Physician Interpretation * * * * CT LUMBAR SPINE WITHOUT CONTRAST HISTORY: LUMBAR PAIN AND RADICULOPATHY, Prior hx L-spine fusion,Bert foot numbness,diffuse bert leg pain Technique: Unenhanced CT lumbar spine with reformats CT Dose-Length Product (DLP): 634 mGy*cm CT Dose Reduction Employed: Automated exposure control (AEC) COMPARISON: X-ray lumbar spine 12/24/2016 Counting reference: Lumbosacral junction. For the purposes of this report, L5/S1 is considered the last lumbar type disc space and L4/5 is considered the level of the iliac crest. L4 posterior decompression with undercutting of L3 with L3- L5 posterior minnie and pedicular screw fixation and L3/4 and L4/5 interbody cages with at least partial osseous fusion across the disc spaces. No evidence of hardware malpositioning, loosening, or failure. Trace levocurvature. Alignment is otherwise anatomic. Vertebral body heights are maintained with some lower thoracic/upper lumbar Schmorl's nodes. Disc spaces are maintained. Bulging disc, loss of disc height, endplate osteophyte formation, and facet arthrosis cause mild to moderate narrowing of the spinal canal at the L2/3 level with mild narrowing of the right neural foramen and mild to moderate narrowing of the left neural foramen with eccentric to the left bulging disc. Loss of disc height and osteophytic encroachment with no more than mild narrowing of the neural foramina at the L3/4 and L4/5 levels given bilateral foraminotomies. Bulging disc, loss of disc height, endplate osteophyte formation, and facet arthrosis result in mild to moderate narrowing of the right neural foramen and mild narrowing of the left neural foramen at the L5/S1 level. Bilateral sacroiliac joint degenerative changes. Grossly unremarkable visualized abdominal and pelvic viscera. IMPRESSION: Postsurgical and degenerative changes of the lumbar spine as detailed without evidence of hardware malpositioning, loosening, or failure. [employer]: PSCB Transcribe Date/Time: May 12 2017 3:39P Dictated by : CHRISTEN TERRELL MD,PHD This examination was interpreted and the report reviewed and electronically signed by: OSCAR GONZALES MD on May 12 2017 4:19PM EST [id number] ALLERGIES ALLERGIES DATE TYPE / CODE NAME / CODE REACTION SEVERITY SOURCE 04/04/2018 DRUG ESCITALOPRAM OTHER: SEE C [facility] INGREDI/419 [place] 059601(SNOM Repository ED CT) 03/22/2018 Drug No Known Unknown Vivian Allergy/416 Allergies/[id number] Community 526993(OM 8(RXNORM) [facility] ED CT) Repository 10/31/2013 DRUG METOPROLOL ITCHING [facility] INGREDI/419 [address] [place] 244036(SNOM Repository ED CT) 04/20/2012 Environ/420 SEASONAL ALLERGIES OTHER: SEE C [facility] 844925(SNOM [place] ED CT) Repository Drug NO KNOWN ALLERGIES [facility] Class/18991 [place] 1003(SNOMED Repository CT) NG/[id number] SEASONAL ALLERGIES [facility] 6([employer]OMED [employer] System CT) Repository ENCOUNTERS ENCOUNTERS ADMIT/DISCHARGE ACCOUNT NUMBER ADMITTING ENCOUNTER LOCATION SOURCE CLASS 04/18/2018/04/19/20 [id number] Ambulatory [address] [place] Repository 04/18/2018/04/18/20 [id number] Ambulatory [address] [place] Repository 04/12/2018/04/13/20 [id number] Ambulatory [address] [place] Repository 04/07/2018/04/08/20 [id number] Ambulatory [address] [place] Repository 04/04/2018/04/05/20 [id number] Ambulatory [address] [place] Repository 04/04/2018 [id number] Ambulatory General acute hospital ding:CT Repository 03/30/2018/03/31/20 [id number] Ambulatory [address] [place] Repository 03/22/2018/03/22/20 [id number] Emergency Gali [address] ding:ED Repository 03/15/2018/03/16/20 [id number] Ambulatory [address] [place] Repository 02/24/2018/02/25/20 [id number] Ambulatory [address] [place] Repository 02/24/2018/02/25/20 [id number] Ambulatory [address] [place] Repository 02/24/2018/02/25/20 [id number] Ambulatory [address] [place] Repository 02/24/2018/02/25/20 [id number] Ambulatory [address] [place] Repository 02/16/2018/02/18/20 [id number] Ambulatory [address] [place] Repository 02/09/2018/02/10/20 [id number] Ambulatory [address] [place] Repository 02/08/2018/02/11/20 [id number] GIO, Ambulatory [address] [place] Repository 02/07/2018/02/08/20 [id number] Emergency Vivian Vivian [facility] ding:ED Repository 02/02/2018/02/04/20 [id number] BETHANIE, Inpatient [address] [place] Repository 02/01/2018/02/03/20 [id number] Emergency Gali Gali [facility] ding:ED Repository 01/10/2018/01/12/20 [id number] Ambulatory [address] [place] Repository 12/27/2017/12/28/19 [id number] Ambulatory [address] [place] Repository 12/22/2017/12/25/19 [id number] Ambulatory [address] [place] Repository 12/21/2017/12/22/19 [id number] Ambulatory [address] [place] Repository 12/16/2017/12/17/19 [id number] Ambulatory [address] [place] Repository 12/12/2017/12/15/19 [id number] Ambulatory [address] [place] Repository 12/06/2017/12/08/19 [id number] Ambulatory [address] [place] Repository 10/27/2017/10/29/19 [id number] Ambulatory [address] [place] Repository 10/21/2017/10/22/19 [id number] Ambulatory [address] [place] Repository 10/14/2017/10/15/19 [id number] Ambulatory [address] [place] Repository 10/06/2017 [id number] Ambulatory [facility] Other [place] Repository 10/06/2017 [id number] Ambulatory [facility] MEDICAL Repository CENTERBuildi ng:AKMRS 10/01/2017/10/06/19 [id number] Ambulatory [address] [place] Repository 09/29/2017/10/01/19 [id number] Ambulatory [address] [place] Repository 09/29/2017/10/01/19 [id number] Ambulatory [address] [place] Repository 09/24/2017/09/25/19 [id number] Ambulatory [address] [place] Repository 09/15/2017/09/18/19 [id number] Ambulatory [address] [place] Repository 08/11/2017/08/12/19 [id number] Ambulatory [address] [place] Repository 08/10/2017/08/12/19 [id number] OSVALDO, Ambulatory [place] 18 NAFISA PATEL) [facility] [place] Repository 07/28/2017 [id number] Ambulatory General acute hospital ding:MASS Repository 07/20/2017/07/21/19 [id number] Ambulatory [address] [place] Repository 07/20/2017/07/21/19 [id number] Ambulatory [address] [place] Repository 07/20/2017/07/22/19 [id number] Ambulatory [address] [place] Repository 07/20/2017 [id number] Ambulatory [facility] [place] Repository 07/20/2017/07/21/19 [id number] Ambulatory [address] [place] Repository 07/20/2017/07/21/19 [id number] Ambulatory [address] [place] Repository 07/20/2017/07/22/19 [id number] Ambulatory [address] [place] Repository 07/14/2017/07/15/19 [id number] Ambulatory [address] ding:PT Repository 06/07/2017/06/07/19 [id number] Ambulatory [address] [place] Repository 05/18/2017/05/18/19 [id number] Ambulatory [address] [place] Repository 05/12/2017/05/12/19 [id number] Ambulatory [address] [place] Repository 05/12/2017/05/12/19 [id number] Ambulatory [address] [place] Repository PAYERS PAYERS ENCOUNTER GUARANTOR PAYER SUBSCRIBER SOURCE 04/04/2018 LILIYA Finley Primary LILIYA [id number] E Insurance:MEDICARE EARLEYDOB: [facility] PART A [facility] [id number] Number: Repository [id number]: [phone] [id number] [phone] () Date:2018-01-31 04/04/2018 Secondary LILIYA Finley Gali Insurance:MEDICAL EARLEYDOB: [facility] [id number] Hospital Number: Repository [id number] Date:[id number] [address]WW: 04/04/2018 Tertiary NOT GIVENUNK Vivian Insurance:SELF PAY [facility] Number: Effective Repository Date:2018-01-31 03/22/2018 LILIYA Tushar Primary LILIYA Talbert [id number] E Insurance:MEDICARE EARLEYDOB: Community DASSEL PART A [facility] [id number] Number: Repository [id number]: 330 [id number] [phone] () Date:2018-03-22 03/22/2018 Secondary LILIYA Finley Vivian Insurance:MEDICAL EARLEYDOB: [facility] [id number] Hospital Number: Repository [id number] Date:[id number] [address]YS: 03/22/2018 Tertiary NOT GIVENUNK Gali Insurance:SELF PAY [facility] Number: Effective Repository Date:2018-03-22 02/07/2018 LILIYA Tushar Primary LILIYA Francooster [id number] E Insurance:MEDICARE EARLEYDOB: [facility] PART A [facility] [id number] Number: Repository [id number]: 330 [id number] [phone] (HP) Date:2018-02-07 02/07/2018 Secondary LILIYA Finley Vivian Insurance:MEDICAL EARLEYDOB: [facility] [id number] Hospital Number: Repository [id number] Date:[id number] [address]UR: 02/07/2018 Tertiary NOT GIVENUNK Gali Insurance:SELF PAY [facility] Number: Effective Repository Date:2018-02-07 02/01/2018 LILIYA Tushar Primary LILIYA Talbert [id number] E Insurance:MEDICARE EARLEYDOB: [facility] PART A olic [id number] Number: Repository [id number]: 330 [id number] [phone] () Date:2018-02-01 02/01/2018 Secondary LILIYA Finley Vivian Insurance:MEDICAL EARLEYDOB: [facility] [id number] Hospital Number: Repository [id number] Date:8221-34-16DO [address] [place] [address]XC: 02/01/2018 Tertiary NOT GIVENUNK Gali Insurance:SELF PAY [facility] Number: Effective Repository Date:2018-02-01 10/06/2017 LILIYA Finley Primary LILIYA [facility] EARLEYDOB: Insurance:MEDICARE A EARLEYDOB: [facility] Number: [id number] [facility] [id number] [place], [place] Date: [address]Xxb: () 10/06/2017 Secondary LILIYA [facility]elius [facility] Insurance:MMO EARLEYDOB: [facility] [id number] Repository Number: [id number] Date: 07/28/2017 LILIYA HRAT6 Primary NOT GIVENUNK Vivian [place] Insurance:SELF PAY [facility] [address]Clc: (330) Number: Effective Repository [phone] () Date:2016-07-22 07/14/2017 LILIYA SR Primary LILIYA EARLEYDOB: Gali E [place] Insurance:MEDICARE [id number] [place] PART A [facility] [id number]: (330) Number: Repository [phone] () [id number] Date:2017-03-19 07/14/2017 Secondary LILIYA ENCINASDOB: Gali Insurance:MEDICAL [id number] [facility] Hospital Number: Repository [id number] Date:[id number] [address] [place] [address]NV: 07/14/2017 Tertiary NOT GIVENUNK Gali Insurance:SELF PAY [facility] Number: Effective Repository Date:2017-03-19
== END ==
PROVIDERS: Family Provider Family Medicine; PCP Family Medicine; Referring Provider Otolaryngology Otolaryngology/Facial Plastic Surgery; Visit Provider Otolaryngology Otolaryngology/Facial Plastic Surgery
DX: J32.9 Chronic sinusitis, unspecified (principal)
CPT/HCPCS: 70486

== ENCOUNTER 2018-08-23 11:00 | Outpatient (RCR) | payer MEDICARE, OTHER, SELFPAY ==
--- NOTE | 2018-04-21 12:21 | HP.PTEVAL ---
Patient's Visit Information LILIYA BOCANEGRA is a 68 year old M referred to Physical Therapy by Jose Chu with a diagnosis of R shoulder impiongement.. Date of Evaluation: 04/21/18 Physical Therapist: Josh Mendoza, DPT, OCS, CSCS - Visit Plan Frequency: 1x/Week Duration: 2-4 Weeks Plan: weekly x 3-4 for. progress upper half ex.. next diagonals, inchworms, bi, tri, Ts, Ys. then pulldown, presses. then WB. - Subjective Findings: R rotator cuff problems. Not sure what he did. Is active but onset was insidious. Enjoys hunting fishing adn [place] as he shoots traditional bows 50#. It has been hurting at least since end of summer and got an injection which was like magic. It started hurting agin 3-4 weeks ago out of the blue. Got another injection which helped again but wanted therapy. X ray showed some junk floating around. Has bone spur front of shoulder. Sleeping is OK since injection. Comfortable at rest. Was not that way rpior to injection. 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 Has stopped pulling on the bow since 5 weeks ago. Dressing was a problem prior to injection. - Pain R shoulder anterior Pain Intensity (Out of 10): 0 Pain Intensity Range: 0, 1 Comment: since injection, worse prior. - Objective Slight forward head and protracted scap posture. Tender to palpation on supraspinatus and + HK and neer impringement test. R. - ext rotation lag and sulcus tests. AROM is WNL B shoulders with some end range flexion abd pain R. reflexes 2/3 bi and tri. c/s AROM WFL. Sensation UE WNl to gross light touch. Strength is 4+/5 in B UE except ext rotation adn empty can which is 4- on R and painful. - Goals Goal 1:: Full aROM and muscle contraction R shoulder without pain Goal Time Frame: 4-6 Weeks Goal 2:: Maintain pain at 0-1/10 for 4 weeks Goal Time Frame: 4-6 Weeks Goal 3:: Ready to start full workout and pulling on bow again. Goal Time Frame: 4-6 Weeks - Rehabilitation Potential Physical Therapy Diagnosis: R shoulder impingement with supraspinatus inflammation. Rehabilitation Potential: Good - Anticipated Interventions Patient/Client Instruction: Educate patient on: Condition, Plan of Care For the Purpose of:: To decrease pain, To increase tolerance to activity/condition/position Therapeutic Exercise to Include: Strength training, Postural training, Scapular Strength/Stabilization For the Purpose of:: To decrease pain, To improve muscle performance and motor function, To improve ability of physical actions for home/community/work/leisure Thank you for the opportunity to evaluate your patient. For Medicare and Medicare HMO plans, please review the plan of care and approve it. It will need to be FAXED BACK to us at [phone] for Medicare purposes. For Medicare only, by signing this I certify the plan of care. Please let me know if there are questions or concerns regarding this plan of care. Physician Signature: Date:
--- NOTE | 2018-06-09 12:28 | HP.PTEVAL ---
Patient's Visit Information LILIYA BOCANEGRA is a 68 year old M referred to Physical Therapy by Jose Chu with a diagnosis of R shoulder impiongement.. Date of Evaluation: 04/21/18 Physical Therapist: Josh Mendoza, DPT, OCS, CSCS - Visit Plan Frequency: 1x/Week Duration: 2-4 Weeks Plan: Pt to call doctor regarding other options... otherwise..REST, f/u one week for increase freq2-3x/week for 2-4 weeks for modalities US nonthermal, es and ice, mobs and gradual progression. - Subjective Findings: R rotator cuff problems. Not sure what he did. Is active but onset was insidious. 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 It has been hurting at least since end of summer and got an injection which was like magic. It started hurting agin 3-4 weeks ago out of the blue. Got another injection which helped again but wanted therapy. X ray showed some junk floating around. Has bone spur front of shoulder. Sleeping is OK since injection. Comfortable at rest. Was not that way rpior to injection. 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 Has stopped pulling on the bow since 5 weeks ago. Dressing was a problem prior to injection. - Pain R shoulder anterior Pain Intensity (Out of 10): 0 Pain Intensity Range: 0, 1 Comment: since injection, worse prior. - Objective Slight forward head and protracted scap posture. Tender to palpation on supraspinatus and + HK and neer impringement test. R. - ext rotation lag and sulcus tests. AROM is WNL B shoulders with some end range flexion abd pain R. reflexes 2/3 bi and tri. c/s AROM WFL. Sensation UE WNl to gross light touch. Strength is 4+/5 in B UE except ext rotation adn empty can which is 4- on R and painful. - Goals Goal 1:: Full aROM and muscle contraction R shoulder without pain Goal Time Frame: 4-6 Weeks Goal 2:: Maintain pain at 0-1/10 for 4 weeks Goal Time Frame: 4-6 Weeks Goal 3:: Ready to start full workout and pulling on bow again. Goal Time Frame: 4-6 Weeks Goal 4:: Painfree at rest 3 days Goal Time Frame: 2 Weeks Goal 5:: Pateint back to feeling 90% better adn I approp progression of activity and HEP Goal Time Frame: 2-4 Weeks - Rehabilitation Potential Physical Therapy Diagnosis: R shoulder impingement with supraspinatus inflammation. Rehabilitation Potential: Good - Anticipated Interventions Patient/Client Instruction: Educate patient on: Condition, Plan of Care For the Purpose of:: To decrease pain, To increase tolerance to activity/condition/position Therapeutic Exercise to Include: Strength training, Postural training, Scapular Strength/Stabilization For the Purpose of:: To decrease pain, To improve muscle performance and motor function, To improve ability of physical actions for home/community/work/leisure Manual Therapy Techniques to Include: Mobilization, Passive ROM For the Purpose of:: To decrease pain, To increase tolerance to activity/condition/position TENS: Yes Cryotherapy (ice pack, ice massage): Yes Ultrasound (thermal/non thermal): Yes For the Purpose of:: To decrease pain, To decrease swelling/inflammation Thank you for the opportunity to evaluate your patient. For Medicare and Medicare HMO plans, please review the plan of care and approve it. It will need to be FAXED BACK to us at [phone] for Medicare purposes. For Medicare only, by signing this I certify the plan of care. Please let me know if there are questions or concerns regarding this plan of care. Physician Signature: Date:
--- NOTE | 2018-06-23 12:38 | HP.PTREVAL ---
Jose Vlad, It has been my pleasure to treat LILIYA BOCANEGRA over the last 5 visits for R shoulder impiongement.. Please see the progress note below for an update on the physical therapy plan of care! Subjective: Saw doctor and got injection a weeka go yesterday and it helped fairly quickly. It helped 65%. Started exercises again and they are not a problem, external rotation hurts and lying on tummy lifting 2# weights. 2/10 pain at rest today. Objective/Function: Full aROM but pain at end range of ext rot and felxion abd and a painful arc. Tender to palpation supraspinatus muscle belly and tendon. INJECTION HELPED BUT STILL HEALING, APPROPRIATE FOR MORE FREUQENT THERAPY TO SPUR THIS ON. Plan Plan: 3X/WEEK FOR 2-4 WEEKS FOR. US NONTHEMRAL TO r SUPRA TNEDONA DN THERMAL TO MUSCLE BELLY. stm TO sUPRA MUSCLE BELLY. PROGRESS Rc AND SCAP STRENGTH APPROPRIATED. GOALS APPROPRIATE AGAIN AND FAIR PROGNOSIS. Goals Goal 1:: Full aROM and muscle contraction R shoulder without pain Goal Time Frame: 4-6 Weeks Goal Progress: approp Goal 2:: Maintain pain at 0-1/10 for 4 weeks Goal Time Frame: 4-6 Weeks Goal Progress: setback Goal 3:: Ready to start full workout and pulling on bow again. Goal Time Frame: 4-6 Weeks Goal Progress: setback Goal 4:: Painfree at rest 3 days Goal Time Frame: 2 Weeks Goal Progress: NEW GOAL Goal 5:: Pateint back to feeling 90% better adn I approp progression of activity and HEP Goal Time Frame: 2-4 Weeks Goal Progress: NEW GOAL Anticipated Interventions Patient/Client Instruction: Educate patient on: Condition, Plan of Care For the Purpose of:: To decrease pain, To increase tolerance to activity/condition/position Therapeutic Exercise to Include: Strength training, Postural training, Scapular Strength/Stabilization For the Purpose of:: To decrease pain, To improve muscle performance and motor function, To improve ability of physical actions for home/community/work/leisure Manual Therapy Techniques to Include: Mobilization, Passive ROM For the Purpose of:: To decrease pain, To increase tolerance to activity/condition/position TENS: Yes Cryotherapy (ice pack, ice massage): Yes Ultrasound (thermal/non thermal): Yes For the Purpose of:: To decrease pain, To decrease swelling/inflammation Please do not hesitate to contact me at [phone] by phone or if you have questions or concerns regarding this new plan of care! Sincerely, Josh Mendoza, DPT, OCS, CSCS
--- NOTE | 2018-08-23 11:27 | HP.PTDCSUM ---
HP - PT D/C Summary It has been my pleasure to treat LILIYA BOCANEGRA under orders from Jose Chu, for the diagnosis of R shoulder impiongement. for a total of 12 visit(s). Discharge Date: 08/23/18 Please see the following information for a summary of their discharge status. - Subjective Subjective: Doing well, no issues or pain since last session. 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 - Pain R shoulder anterior Pain Intensity (Out of 10): 0 - Overall Improvement % Improvement: 40 - Objective Objective/Function: Full aROM without pain. Good strength comparable to L. - Goals Goal 1:: Full aROM and muscle contraction R shoulder without pain Goal Progress: Goal Met Goal 2:: Maintain pain at 0-1/10 for 4 weeks Goal Progress: Goal Met Goal 3:: Ready to start full workout and pulling on bow again. Goal Progress: Goal Met Goal 4:: Painfree at rest 3 days Goal Progress: Goal Met Goal 5:: Pateint back to feeling 90% better adn I approp progression of activity and HEP Goal Progress: Goal Met - Plan Plan: D/C to HEP, pt to call doctor if problems. - D/C Information Discharge Comments: Doing well and will continue I at home gym. If there are questions or concerns regarding this patient's physical therapy, please feel free to call me at [phone]. Thank you for the referral of this patient. Sincerely, Josh Mendoza, DPT, OCS, CSCS
== END 2018-08-23 19:00 | disposition home or self-care (01) ==
LOC: PT 11:00
PROVIDERS: Family Provider Family Medicine; PCP Family Medicine; Referring Provider Family Medicine; Visit Provider Family Medicine
DX: M75.41 Impingement syndrome of right shoulder (principal)
CPT/HCPCS: 97035; 97110; 97140; 97162; 97164; 97530

== ENCOUNTER → 2018-12-15 | Outpatient (CLI) | payer MEDICARE, OTHER, SELFPAY ==
[2018-12-13 10:17] VITALS: BMI 25.7
== END | disposition home or self-care (01) ==
LOC: SL 12:05
PROVIDERS: Family Provider Family Medicine; PCP Family Medicine; Referring Provider Internal Medicine Critical Care Medicine; Visit Provider Internal Medicine Critical Care Medicine
DX: G47.33 Obstructive sleep apnea (adult) (pediatric) (principal)
CPT/HCPCS: 95806

== ENCOUNTER → 2019-01-19 | Outpatient (CLI) | payer MEDICARE, OTHER, SELFPAY ==
[2018-12-13 10:17] VITALS: BMI 25.7
== END | disposition home or self-care (01) ==
LOC: SL 20:08
PROVIDERS: Family Provider Family Medicine; PCP Family Medicine; Referring Provider Nurse Practitioner Acute Care; Visit Provider Nurse Practitioner Acute Care
DX: G47.33 Obstructive sleep apnea (adult) (pediatric) (principal)
CPT/HCPCS: 95811

== ENCOUNTER 2019-06-29 11:00 | Outpatient (RCR) | payer MEDICARE, OTHER, SELFPAY ==
[2019-03-10 10:14] VITALS: BMI 26.9
--- NOTE | 2019-05-11 13:38 | HP.PTEVAL_ITS ---
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 Date of Evaluation: 05/11/19 Physical Therapist: Tushar Hinson, PT, Cert MDT, OCS - Visit Plan Frequency: 1x/Week Duration: 4 Weeks Plan: PT INTERVENTIONS POSTURE MODIFICATION,POSTURAL EX'S,DLS ABD/BACK,LE FLEXABILITY,STRENGTHENING - Subjective Findings: This 69 y/o male presenst to physical therapy with s/p laminectomy on 02/16/[address] Mckeon by [facility]. Pateint d/c next day . Patient continue to have legs symptoms which has gradually improved. Patient has muliple comorbities with spinal surgery with 2 lamainectomies,fusion lumbar. Pateint has cervical replacement disc. Patient tried some ex's on own made symptoms in legs. Seen DR Perez 4 doing good ,okay to start PT. Patient on gabepetin at [facility]. Aggraveting twisting, lifting,extended ,sitting in wrong chair without support. Alleviating factors walking ,but is limited with DJD right knee plan to have TKR in 2 months. Patient has parathesia in feet long standing. Patient sleeping good. Patient bowel/bladder good. Coughing /sneezing -. Patient pain from surgery affects ADL'S ,function and job demands . Patient pain affects QOL. SOCAIL: . VOCATION: [employer] - Pain Bilateral Lower Extremity Pain Intensity (Out of 10): 2 Pain Intensity Range: 10 - Objective POSTURE: mild foward posture. GAIT: reciprocal pattern. NEURO: intact ,reflexes L3-4,L4-5,L5-S1 1/3. PALAPTION: tender LS. LUMBAR ROM: flexion mod loss,extension mod loss,side glides min mod loss. FLEXABILITY: hams mod tight. MMT: quads/hams 4/5,hip flexion 4-/5,hip abd 4-/5,ankle. CORE STRENGTH: FAIR - Special Tests L/S Slump test left side: Negative L/S Slump test right side: Negative L/S Left Straight Leg Raise: Negative L/S Right Straight Leg Raise: Negative Lumbar Standing: Flexion - Mechanical Response: No effect Lumbar Standing: Flexion - Symptoms During Testing: No effect Lumbar Standing: Flexion - Symptoms After Testing: No effect Lumbar Standing: Extension - Mechanical Response: No effect Lumbar Standing: Extension - Symptoms During Testing: No effect Lumbar Standing: Extension - Symptoms After Testing: No effect Lumbar Standing: Right Side Glides - Mechanical Response: No effect Lumbar Standing: Right Side [place] - Symptoms During Testing: No effect Lumbar Standing: Right Side [place] - Symptoms After Testing: No effect Lumbar Standing: Left Side [place] - Mechanical Response: No effect Lumbar Standing: Left Side [place] - Symptoms During Testing: No effect Lumbar Standing: Left Side [place] - Symptoms After Testing: No effect - Goals Goal 1:: Independant with HEP Goal Time Frame: 4-6 Weeks Goal 2:: Patient to improve posture for ADLS' Goal Time Frame: 4-6 Weeks Goal 3:: Patient improve lumbar ROM for function of recovery Goal Time Frame: 4-6 Weeks Goal 4:: Patient increase core strength to good and hip strength to 4/5 to improve function. Goal Time Frame: 4-6 Weeks Goal 5:: Patient to improve back owestry score by 5 points by improve QOL. Goal Time Frame: 4-6 Weeks - Rehabilitation Potential Physical Therapy Diagnosis: This patient uderwent s/p laminectomy with decrease ROM,hip strength,function of recovery impairs gait and function and core strength thus benifit from skilled PT Rehabilitation Potential: Good - Anticipated Interventions Patient/Client Instruction: Educate patient on: Condition, Plan of Care For the Purpose of:: To decrease pain, To increase ROM, To improve muscle performance and motor function, To improve ability to perform ADL's, To increase tolerance to activity/condition/position, To improve ability of physical actions for home/community/work/leisure, To improve health of tissue, To decrease soft tissue restriction, To increase flexibility/ROM, To prevent re-injury, To improve ability to perform tasks related to life management Therapeutic Exercise to Include: Strength training, Body mechanics, Postural training, Flexibilty training, Dynamic Lumbar Stabilization Comment: LE BILATERAL For the Purpose of:: To decrease pain, To increase ROM, To improve ability to perform ADL's, To increase tolerance to activity/condition/position, To improve ability of physical actions for home/community/work/leisure, To improve health of tissue, To decrease soft tissue restriction, To improve ability to perform tasks related to life management Thank you for the opportunity to evaluate your patient. For Medicare and Medicare HMO plans, please review the plan of care and approve it. It will need to be FAXED BACK to us at [phone] for Medicare purposes. For Medicare only, by signing this I certify the plan of care. Please let me know if there are questions or concerns regarding this plan of care. Physician Signature: Date:
--- NOTE | 2019-06-29 11:52 | HP.PTDCSUM ---
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 Discharge Date: 06/29/19 Please see the following information for a summary of their discharge status. - Subjective Subjective: Doing well..no pain . Doing ex's at home . Plan for partial Knee replacement - Pain Bilateral Lower Extremity Pain Intensity (Out of 10): 0 - Overall Improvement % Improvement: 100 - Objective Objective/Function: POSTURE: mild foward posture. GAIT: reciprocal pattern. NEURO: intact. MMT: quads/hams/hip /ankle 4/5. LUMBAR ROM: flexion min loss,extension min/mod loss - Goals Goal 1:: Independant with HEP Goal Progress: Goal Met Goal 2:: Patient to improve posture for ADLS' Goal Progress: Goal Met Goal 3:: Patient improve lumbar ROM for function of recovery Goal Progress: Goal Met Goal 4:: Patient increase core strength to good and hip strength to 4/5 to improve function. Goal Progress: Goal Met Goal 5:: Patient to improve back owestry score by 5 points by improve QOL. Goal Progress: Goal Met - Plan Plan: D/C TO HEP - D/C Information Discharge Comments: HEP If there are questions or concerns regarding this patient's physical therapy, please feel free to call me at [phone]. Thank you for the referral of this patient. Sincerely, Tushar Hinson, PT, Cert MDT, OCS
== END 2019-06-29 19:00 | disposition home or self-care (01) ==
LOC: PT 11:00
PROVIDERS: Family Provider Family Medicine; PCP Family Medicine
DX: M48.062 Spinal stenosis, lumbar region with neurogenic claudication (principal)
CPT/HCPCS: 97110; 97162; 97530

== ENCOUNTER 2019-11-10 08:00 | Outpatient (RCR) | payer MEDICARE, OTHER, SELFPAY ==
[2019-03-10 10:14] VITALS: BMI 26.9
--- NOTE | 2019-10-06 16:22 | HP.PTEVAL ---
Patient's Visit Information LILIYA BOCANEGRA is a 69 year old M referred to Physical Therapy by [facility] Doctor with a diagnosis of OSTEOARTHRITIS RIGHT KNEE,S/P UNICOMPARTMENTAL KNEE REPLACEMENT. Date of Evaluation: 10/06/19 Physical Therapist: Tushar Hinson, PT, Cert MDT, OCS - Visit Plan Frequency: 2x /Week Duration: 4 Weeks Plan: SEE PROTOCAL FOR UNICOMPARTMENTAL KNEE REPLACEMENT. PT INTERVENTIONS ROM/FLEXABILITY,PRE'S QUADS/HAMS/HIP ,BIKE,PRE-QUADS/HAMS -CLOSED CHAIN ,FUNCTIONAL STRENGTHENING ,CP - Subjective This 69 y/o male presents to physical therapy with right knee pain. Patient has had knee pain 2 years which has progressed ,thus underwent s/p unicompartmental knee replacement on September 14 at [facility] done DR Mason David. Patient d/c DOS with fww. Patient used walker for 3-4 days then progressed to cane and stopped using cane for about 1 week. Patient had [facility] PT 2 weeks thus d/c has HEP. Return to [place] 1week. Patient uses extra strength Telylonal ,1/2 oxycodine. Patient sleeping on couch with feet elevated thus affects sleeping . Patient denies parathesia/tingling. Patient has 2 story home with fleight 2nd floor acsending alternate step,descending one step . Patient pain affects function and job demands . Patient affects QOL.Patient conts to have edema. VOCATION: [employer]. SOCAIL: - Pain Right Knee Pain Intensity (Out of 10): 5 Pain Intensity Range: 10 - Objective POSTURE: mild foward posture,right knee flexed. GAIT: mild foward posture ,mild decrease stance time with decrease swing phase. BALANCE: GOOD. SKIN: inscion crusty. STAIRS: desecend one step at time,ascend alteranating with rail. EDEMA: 43 CM joint line. QUAD: ATROPHIED. AROM SUPINE KNEE FLEXION: 10-115 DEGREES. MMT: quads/hams 4-/5,hip flexion,abd 4-/5 ,ankle 4/5. FLEXABILITY: hams min.mod tight - Goals Goal 1:: Independat with HEP. Goal Time Frame: 4-6 Weeks Goal 2:: Patient to nomalize gait pattern Goal Time Frame: 4-6 Weeks Goal 3:: Increase AROM supine knee flexion 0-125 degrees to improve function with stairs Goal Time Frame: 4-6 Weeks Goal 4:: Increase strength quads/hams/hip / to improve function. Goal Time Frame: 4-6 Weeks Goal 5:: Patient to alternating stairs ascend/desend with rails Goal Time Frame: 4-6 Weeks Goal 6:: Improve LFES score by 10 points or > to improve QOL. Goal Time Frame: 4-6 Weeks - Rehabilitation Potential Physical Therapy Diagnosis: This 69 y/o underwents s/p unicompartmental knee replacement 09/14 with decrease rom,mild edema,weakness quads/hams impairs quality of gait ,stairs and function thus benifit from skilled PT. Rehabilitation Potential: Good - Anticipated Interventions Patient/Client Instruction: Educate patient on: Condition, Plan of Care For the Purpose of:: To decrease pain, To increase ROM, To improve muscle performance and motor function, To improve ability to perform ADL's, To increase tolerance to activity/condition/position, To improve ability of physical actions for home/community/work/leisure, To improve health of tissue, To decrease soft tissue restriction, To increase flexibility/ROM, To reduce risk of recurrence, To improve ability to perform tasks related to life management Therapeutic Exercise to Include: Strength training, Balance training, Flexibilty training, Passive ROM, Active ROM For the Purpose of:: To decrease pain, To increase ROM, To improve muscle performance and motor function, To improve ability to perform ADL's, To improve ability of physical actions for home/community/work/leisure, To improve health of tissue, To decrease soft tissue restriction, To improve endurance, To reduce risk of recurrence, To improve ability to perform tasks related to life management Cryotherapy (ice pack, ice massage): Yes Thermo therapy (hot pack): Yes For the Purpose of:: To improve nutrient delivery to tissue, To increase oxygenation perfusion, To improve gait and locomotor functions, To decrease soft tissue restriction Thank you for the opportunity to evaluate your patient. For Medicare and Medicare HMO plans, please review the plan of care and approve it. It will need to be FAXED BACK to us at [phone] for Medicare purposes. For Medicare only, by signing this I certify the plan of care. Please let me know if there are questions or concerns regarding this plan of care. Physician Signature: Date:
--- NOTE | 2019-11-10 08:48 | HP.PTDCSUM ---
It has been my pleasure to treat LILIYA BOCANEGRA referred by RAQUEL WALTERS, with the diagnosis of OSTEOARTHRITIS RIGHT KNEE,S/P UNICOMPARTMENTAL KNEE REPLACEMENT for a total of 7 visit(s). Discharge Date: 11/10/19 Please see the following information for a summary of their discharge status. Subjective: Doing well ..no problems except kneeling on knee caused small opening,caused infection see put on antiobiotic currently better. No problems with function and ADL'S Right Knee Pain Intensity (Out of 10): 0 % Improvement: 90 Objective/Function: PALAPTION:NORMAL. GAIT: RECIPROCAL GAIT. EDEMA: MILD EFFUSION PATELLA. AROM: 0-130 SUPINE KNEE FLEXION. MMT: QUADS/HAMS 5/5,HIP 4/5. STAIRS:ALTERNATING WITH NO RAIL Goal 1:: Independat with HEP. Goal Progress: Goal Met Goal 2:: Patient to nomalize gait pattern Goal Progress: Goal Met Goal 3:: Increase AROM supine knee flexion 0-125 degrees to improve function with stairs Goal Progress: Goal Met Goal 4:: Increase strength quads/hams/hip 4/5 to improve function. Goal Progress: Goal Met Goal 5:: Patient to alternating stairs ascend/desend with rails Goal Progress: Goal Met Goal 6:: Improve LFES score by 10 points or > to improve QOL. Goal Progress: Goal Met Plan: D/C TO HEP Discharge Comments: HEP If there are questions or concerns regarding this patient's physical therapy, please feel free to call me at [phone]. Thank you for the referral of this patient. Sincerely, Tushar Hinson, PT, Cert MDT, OCS
== END 2019-11-10 19:00 | disposition home or self-care (01) ==
LOC: PT 08:00
PROVIDERS: PCP Family Medicine
DX: M17.11 Unilateral primary osteoarthritis, right knee (principal); Z96.651 Presence of right artificial knee joint
CPT/HCPCS: 97016; 97110; 97162

== ENCOUNTER → 2020-02-02 | Outpatient (CLI) | payer MEDICARE, OTHER, SELFPAY ==
[2019-03-10 10:14] VITALS: BMI 26.9
== END | disposition home or self-care (01) ==
LOC: MTDU 02-08 12:46
PROVIDERS: PCP Family Medicine; Referring Provider Family Medicine; Visit Provider Family Medicine
DX: Z20.828 Contact with and (suspected) exposure to other viral communicable diseases (principal)
CPT/HCPCS: 87635; C9803; U0003

== ENCOUNTER 2020-02-03 16:12 | Emergency (ER) | payer MEDICARE, OTHER, SELFPAY ==
[2019-03-10 10:14] VITALS: BMI 26.9
[2020-02-03 16:13] VITALS: BP 143/82; PULSE 75; RESP 15; TEMP 36.1; O2SAT 100; BMI 25.1
[2020-02-03 16:15] VITALS: BP 143/82; PULSE 75; RESP 15; TEMP 36.1; O2SAT 100
--- NOTE | 2020-02-03 16:26 | ED.DCSUM_ITS ---
History of Present Illness Chief Complaint: Wound Check Detail of Chief Complaint: Redness swelling surgical site dorsal medial left foot Informant: Patient Onset: Today Context: Sudden Onset Timing: Continuous Quality: Redness, warmth and swelling surgical site Location: Medial dorsal mid left foot Current Severity: Mild Maximum Severity: Mild Worsened by: Nothing Relieved by: Nothing Associated Symptoms: No constitutional symptoms Narrative: Patient is a 69-year-old male with history of coronary disease, diabetes who presents to the emergency department because of redness to the dorsal surface of his left foot over 1 of the 3 surgical sites. He had surgery by Dr. Jose Jacob 7 weeks ago. The site that is red and swollen was for bunion repair. He contacted Dr. Jacob's office yesterday. He informed that that it was swollen. Yesterday it was not red and there was no swelling over the surgical site itself. Patient denies fever, chills nitrates. He denies history rheumatic fever, heart murmur, immune suppression or SBE. He has no allergies to antibiotics. Patient was informed of plan. He believes this may have started . He was cold he no longer had to wear his boot. He was wearing shoes intermittently over the past week. He states on he places orthotic in the shoe and believes that the dorsal surface of his foot was rubbing against the inside of the shoe. 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 (10) Hypertension Status: Chronic (11) Hypogonadism Status: Chronic (12) History of shingles Status: Resolved Past Medical History - Allergies and Home Meds Allergies/Adverse Reactions: Allergies metoprolol Allergy (Verified 02/03/20 16:13) Unknown Primary Care Physician: Aquiles Rosado MD [Primary Care Provider] - Prior records reviewed: Yes Surgical History: - - Recent foot surgery, colonoscopy, vasectomy, multiple orthopedic procedures Lives: Spouse/ Significant Other Smoking Status: Former smoker Alcohol: None Drugs: None Review of Systems General: Denies: Chills, Fever, Malaise, Subjective, Sweats ENT: Denies: Rhinorrhea, Sore throat Cardiovascular: Denies: Chest pain, Palpitations Respiratory: Denies: Dyspnea, Cough, Sputum Gastrointestinal: Denies: Abdominal pain, Nausea, Vomiting, Diarrhea Musculoskeletal: Reports: Swelling. Denies: Myalgias, Arthralgias, Neck pain, Back pain, Extremity Pain Skin: Reports: Rash, Abscess, Wounds Neurological: Denies: Headache, Weakness, Parasthesia Endocrine: Denies: Polyuria, Polydipsia Allergy: Denies: Uticaria, Swelling of the mouth Physical Exam Vital Signs/Narrative: Vital Signs Temp Pulse Resp BP Pulse Ox 02/03/20 16:15 97.0 F L 75 15 143/82 H 100 02/03/20 16:13 97.0 F L 75 15 143/82 H 100 Inital Vital Signs reviewed: Yes General: Well nourished, Well developed, No Acute Distress Head: Normocephalic, Atraumatic Eyes: Perrl, EOMI. Negative for: Pale conjunctiva, Scleral icterus Cardiovascular: Regular rate, Regular rhythm Respiratory: No distress Extremities: Nontender, Edema. Negative for: No edema Skin: Normal color, No Trauma, Rash, - - Cellulitis of the dorsal medial left foot. Over the incision site for the bunion repair there is fluctuance. There is no lymphangitis. There is no popliteal lymphadenopathy. There is no joint swelling.. Negative for: Cyanosis, Diaphoresis, Jaundice Neurological: Alert, Oriented x3, Cranial nerves II-XII grossly intact, Normal Strength, Normal Sensation Psychological: Normal affect, Normal Mood Diagnostic/Tx/Re-eval Laboratory Results 02/03/20 02/03/20 16:32 16:32 WBC 7.9 RBC 4.34 L Hgb 13.1 Hct 40.5 MCV 93.3 MCH 30.2 MCHC 32.3 RDW Std Deviation 44.5 H RDW Coeff of Anayeli 12.9 Plt Count 244 MPV 9.3 Immature Gran % (Auto) 0.300 Neut % (Auto) 70.4 H Lymph % (Auto) 14.4 L Fallon % (Auto) 10.8 H Eos % (Auto) 2.4 Baso % (Auto) 1.7 H Absolute Neuts (auto) 5.5 Absolute Lymphs (auto) 1.13 Nucleated RBC % 0 Sodium 140 Potassium 3.9 Chloride 109 H Carbon Dioxide 26.0 Anion Gap 5 BUN 15 Creatinine 0.77 Estim Creat Clear Calc 81.01 Est GFR (MDRD) Af Amer 130 Est GFR (MDRD) Non-Af 107 BUN/Creatinine Ratio 19.6 Glucose 81 Calcium 9.0 Patient has no sirs criteria. Therefore plan is to discharge to home with prescription of cephalexin and Bactrim. - Medical Decision Making Abscess with cellulitis, osteomyelitis unlikely since symptoms started less than 24 hours ago and surgery was 7 weeks ago, need to assess electrolytes since patient is diabetic and renal function. Dr. Jose Jacob was paged. Dr. Ivan Tan is money counter. Informed of patient's surgical history present history of illness and physical exam. He suggested not doing a formal I&D since the abscess was aspirated and over the surgical site. He is to be seen by Dr. Jacob on Wednesday at the latest Wednesday. He was informed that I would call back if labs were markedly abnormal and required admission. Procedures Procedure(s): Needle aspirate of presumed abscess medial dorsal surface left foot over incision site for bunion repair. Patient was prepped in a sterile fashion. Using a 21-gauge needle 2 cc of thick purulent bloody material was aspirated. There is no remaining fluctuance. ED Disposition - Plan for ED Patient: Disposition: Home or Assisted Living Diagnosis: Cellulitis and abscess of foot Instructions: ED Cellulitis Prescriptions: Smz/Tmp Ds [Bactrim Ds] 1 tab PO BID #14 tab Transmission Status: Pending to [facility] Cephalexin [Keflex] 500 mg PO Q6 #28 cap Transmission Status: Pending to [facility] Referrals: Aquiles Rosado MD [Primary Care Provider] - Jose Jacob MD [NON-STAFF] - As soon as possible Additional Instructions: Start taking antibiotics later this evening. Call Dr. Jose Jacob's office Wednesday to be seen later that afternoon or Wednesday. If you develop shaking chills, temperature greater than 100 or a red streak ascending up your leg return to the emergency department.
[2020-02-03 16:52] LABS: Absolute Lymphocyte Count 1.13 X10^3/uL (0.83-4.51); Absolute Neutrophil Count 5.5 X10^3/uL (2.0-7.7); Basophil# 0.13 X10^3/uL; Basophil% 1.7 % (0-1); Eosinophil# 0.19 X10^3/uL; Eosinophils% 2.4 % (0-5); Hematocrit 40.5 % (40-54); Hemoglobin 13.1 g/dL (13.0-16.5); Lymphocyte # 1.13 X10^3/ul (4.0); Lymphocyte % 14.4 % (19-41); Mean Corp Hgb Conc 32.3 g/dL (32-36); Mean Corpuscular Hgb 30.2 pg (27.0-32.0); Mean Corpuscular Volume 93.3 fL (80-94); Mean Platelet Vol. 9.3 fl (6.2-12.0); Monocyte# 0.85 X10^3/uL; Monocyte% 10.8 % (0-10); NRBC Flagged by Analyzer 0 % (0-5); Neutrophil # 5.54 X10^3/uL (2.7-7.7); Neutrophil % 70.4 % (47-70); Platelet Count 244 K/mm3 (150-450); RBC Distribution Width CV 12.9 % (11.6-14.6); RBC Distribution Width SD 44.5 fl (35.1-43.9); Red Blood Count 4.34 M/mm3 (4.6-6.2); White Blood Count 7.9 K/mm3 (4.4-11.0)
[2020-02-03 17:02] LABS: Anion Gap 5 (5-15); BUN 15 mg/dL (7-18); BUN/Creat Ratio 19.6 RATIO (10-20); Chloride 109 mmol/L (98-107); Creatinine, Serum 0.77 mg/dL (0.70-1.30); EST Glomerular Filtration Rate 107 mL/min (>60); Est Glom Filt Rate - Afr Amer 130 mL/min (>60); Estimated Creatinine Clearance 81.01 ml/min; Glucose 81 mg/dL (74-106); Potassium 3.9 mmol/L (3.5-5.1); Sodium Level 140 mmol/L (136-145)
[2020-02-03 17:15] VITALS: BP 133/86; PULSE 64; RESP 15; TEMP 36.8
--- NOTE | 2020-02-03 17:18 | ED.RN ---
Anderson from Dr. Shaver prior to abx start that Blood Cultures not indicated.
[2020-02-03 18:00] VITALS: BP 140/85; PULSE 71; RESP 18; TEMP 37.1; O2SAT 100
[2020-02-03 20:56] VITALS: BP 143/84; PULSE 72; RESP 15; TEMP 37.1; O2SAT 97
== END 2020-02-03 20:57 | disposition home or self-care (01) ==
PROVIDERS: Emergency Provider Emergency Medicine; PCP Family Medicine
DX: L02.612 Cutaneous abscess of left foot (principal); L03.116 Cellulitis of left lower limb; E78.5 Hyperlipidemia, unspecified; I10 Essential (primary) hypertension; E11.9 Type 2 diabetes mellitus without complications; Z79.899 Other long term (current) drug therapy; Z87.891 Personal history of nicotine dependence; Z79.84 Long term (current) use of oral hypoglycemic drugs
CPT/HCPCS: 10160; 80048; 85025; 87070; 87075; 87205; 96365; 96367; 99282; J7040; J7050; A4216; J0295

== ENCOUNTER → 2020-04-18 18:14 | Outpatient (CLI) | payer MEDICARE, OTHER, SELFPAY ==
[2020-04-17 12:09] VITALS: BMI 26.9
== END ==
LOC: MTDU 18:14
PROVIDERS: PCP Family Medicine; Visit Provider Family Medicine
DX: Z20.828 Contact with and (suspected) exposure to other viral communicable diseases (principal)
CPT/HCPCS: 87635; C9803; U0003

== ENCOUNTER 2020-09-25 08:30 | Outpatient (RCR) | payer MEDICARE, OTHER, SELFPAY ==
[2020-04-17 12:09] VITALS: BMI 26.9
--- NOTE | 2020-07-01 19:07 | HP.PTEVAL_ITS ---
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 Date of Evaluation: 07/01/20 Physical Therapist: Tushar Hinson, PT, Cert MDT, OCS - Visit Plan Frequency: 2x /Week Duration: 8WEEKS Plan: S/P RTC REPAIR and bicep repair on Apr. S/P 13 WEEKS ON JULY 05 ,RESTRICTION 10#. PT INTERVENTIONS ROM/STRETCHING RIGHT SHOULDER AND STRENGTHENING RTC /SCAPUALR/DELTOID MANUAL THERAPY MYOFASCAIL,CP/MHP - Subjective This 70 y/o male presenst to physical therapy with left RTC repair done DR Aden at [facility]. Patient fell Jan 31 in backyard landed on shoulder coase severe pain. Patient seen Surgeon Mar 03,then had MRI showed massive tear RTC and bicep tear . Thus underwent S/P RTC and bicep repair on APR 05 . Patient was in sling for 6weeks ,then 6weeks AAROM with stick . Then recommended PT .Patient to return to [place] in 3 months . Patient has some pain especally with sleeping . Curr ently,no pain. Denies parathesia/tingling. Patient has 10 # limitations with lifting.Patient has deficits with ADLS and housework tasks . Patient symptoms affects QOL. SOCIAL : . VOCATION: [employer] - Pain Left Shoulder Pain Intensity (Out of 10): 0 Pain Intensity Range: 10 Comment: 5/10 night - Objective POSTURE: mild foward posture. NEURO: intact. PALAPTION: mild tender AC region. AROM: shoulder flexion 120 degrees,abduction 130 degrees in scaption,ER 85 degrees,IR T10. PROM: shoulder flexion 150 ,adduction in scapular postion 150 degrees. G-H RYTHUM: 1:1 less. CAPSUALR : mild tight. MMT: RTC 4-/5 DELTOID anterior 4-/5,lateral 3+/5 - Goals Goal 1:: I with HEP with progress strengthening and ROM Goal Time Frame: 8-12 Weeks Goal 2:: Patient improve AROM shoulder flexion 150 degrees,abduction 150 degrees to ADL's and housework . Goal Time Frame: 8-12 Weeks Goal 3:: Patient increase strength RTC and deltoid to 4/5 to improve function. Goal Time Frame: 4-6 Weeks Goal 4:: Patient to improve ability to use left shoulder for functional tasks ab ove90 degrees and housework tasks Goal Time Frame: 4-6 Weeks Goal 5:: Patient to improve quick dash by 5 points or > to improve function and QOL. Goal Time Frame: 4-6 Weeks - Rehabilitation Potential Physical Therapy Diagnosis: This patient underwent s/p RTC repair along with biceps Apr 05 2020 with degrees ROM ,strength ,pain impairs function with ADL'S and housework tasks thus will benifit from skilled PT and goal to return to [employer] Rehabilitation Potential: Good - Anticipated Interventions Patient/Client Instruction: Educate patient on: Condition, Plan of Care For the Purpose of:: To decrease pain, To increase ROM, To improve muscle performance and motor function, To improve ability to perform ADL's, To increase tolerance to activity/condition/position, To improve performance and independence with ADL's, To improve ability of physical actions for home/community/work/leisure, To improve health of tissue, To decrease soft tissue restriction, To increase flexibility/ROM, To improve ability to perform tasks related to life management Therapeutic Exercise to Include: Strength training, Postural training, Flexibilty training, Passive ROM, Active ROM Comment: RTC/DELTOID For the Purpose of:: To decrease pain, To increase ROM, To improve muscle performance and motor function, To improve ability to perform ADL's, To increase tolerance to activity/condition/position, To improve ability of physical actions for home/community/work/leisure, To improve health of tissue, To decrease soft tissue restriction, To increase flexibility/ROM, To improve ability to perform tasks related to life management Manual Therapy Techniques to Include: Mobilization Comment: MYOFASCIAL PRN For the Purpose of:: To decrease pain, To increase ROM, To improve nutrient delivery to tissue, To increase oxygenation perfusion, To improve health of t issue, To decrease soft tissue restriction, To increase flexibility/ROM Cryotherapy (ice pack, ice massage): Yes Thermo therapy (hot pack): Yes For the Purpose of:: To decrease pain, To improve nutrient delivery to tissue, To increase oxygenation perfusion Thank you for the opportunity to evaluate your patient. For Medicare and Medicare HMO plans, please review the plan of care and approve it. It will need to be FAXED BACK to us at [phone] for Medicare purposes. For Medicare only, by signing this I certify the plan of care. Please let me know if there are questions or concerns regarding this plan of care. Physician Signature: Date:
--- NOTE | 2021-01-31 13:23 | HP.PTDCSUM ---
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 Discharge Date: Please see the following information for a summary of their discharge status. Subjective: Doing well no pain Left Shoulder Pain Intensity (Out of 10): 0 % Improvement: 100 Objective/Function: PROGRESSING VERY WELL. AROM SHOULDER FLEXION 155 DEGREES,150 DEGREES 150 DEGREES,ER 90 DEGREES. RTC 4/5,DELTOID 4-/5 Goal 1:: I with HEP with progress strengthening and ROM Goal 2:: Patient improve AROM shoulder flexion 150 degrees,abduction 150 degrees to ADL's and housework . Goal 3:: Patient increase strength RTC and deltoid to 4/5 to improve function. Goal 4:: Patient to improve ability to use left shoulder for functional tasks above90 degrees and housework tasks Goal 5:: Patient to improve quick dash by 5 points or > to improve function and QOL. Plan: d/c If there are questions or concerns regarding this patient's physical therapy, please feel free to call me at [phone]. Thank you for the referral of this patient. Sincerely, Tushar Hinson, PT, Cert MDT, OCS Balance/Gait/Functional tests - Balance/Special Test Scores Quick DASH Score: 5.0000
== END 2020-09-25 19:00 | disposition home or self-care (01) ==
LOC: PT 08:30
PROVIDERS: PCP Family Medicine
DX: S46.012D Strain of muscle(s) and tendon(s) of the rotator cuff of left shoulder, subsequent encounter (principal); Z98.890 Other specified postprocedural states
CPT/HCPCS: 97110; 97162

== ENCOUNTER → 2021-01-24 16:48 | Outpatient (CLI) | payer MEDICARE, OTHER, SELFPAY | PROVIDERS: PCP Family Medicine; Referring Provider Otolaryngology; Visit Provider Otolaryngology | DX: J32.8 Other chronic sinusitis (principal) | CPT/HCPCS: 87070; 87205 ==

== ENCOUNTER 2021-02-22 15:29 | Emergency (ER) | payer MEDICARE, SELFPAY ==
[2021-02-22 15:30] VITALS: BP 150/88; PULSE 63; RESP 15; TEMP 35.9; O2SAT 97; BMI 26.4
[2021-02-22 15:43] VITALS: PULSE 64; RESP 12; O2SAT 96
[2021-02-22] MEDS: Mag Hydrox/Al Hydrox/Simeth 30 ML UDC PO (15:53)
--- NOTE | 2021-02-22 15:53 | RAD_ITS ---
STUDY: X-RAY CHEST REASON FOR EXAM: Male, 71 years old. chest pain TECHNIQUE: AP COMPARISON: 03/22/2018 FINDINGS: The lungs are clear and expanded. There is no demonstrated pleural abnormality. Normal size heart. Normal mediastinum and dora. Normal visualized pulmonary arteries. There is atherosclerotic calcification of the aortic arch with tortuosity. Old left rib fractures. Operative changes of left humeral head, new. There is no demonstrated abnormality of the visualized soft tissue structures of the upper abdomen. RAD/Chest 1 View (Portable) IMPRESSION: No airspace consolidation or pleural effusion. Electronically Signed: Jd Wong MD (Brooks) at 16:27 EDT , Service support ,
[2021-02-22 16:03] LABS: Absolute Lymphocyte Count 1.46 X10^3/uL (0.83-4.51); Basophil# 0.13 X10^3/uL; Basophil% 2.4 % (0-1); Eosinophil# 0.25 X10^3/uL; Eosinophils% 4.5 % (0-5); Hematocrit 40.6 % (40-54); Hemoglobin 13.8 g/dL (13.0-16.5); Lymphocyte # 1.46 X10^3/ul (0.83-4.51); Lymphocyte % 26.4 % (19-41); Mean Corpuscular Hgb 30.5 pg (27.0-32.0); Mean Corpuscular Volume 89.6 fL (80-94); Mean Platelet Vol. 9.6 fl (6.2-12.0); Monocyte# 0.71 X10^3/uL; Monocyte% 12.9 % (0-10); NRBC Flagged by Analyzer 0 % (0-5); Neutrophil # 2.96 X10^3/uL (2.7-7.7); Neutrophil % 53.6 % (47-70); Platelet Count 282 K/mm3 (150-450); RBC Distribution Width CV 12.8 % (11.6-14.6); RBC Distribution Width SD 42.1 fl (35.1-43.9); Red Blood Count 4.53 M/mm3 (4.6-6.2); White Blood Count 5.5 K/mm3 (4.4-11.0)
[2021-02-22 16:17] LABS: Anion Gap 7 (5-15); BUN 19 mg/dL (7-18); Calcium,Total 9.6 mg/dL (8.5-10.1); Chloride 107 mmol/L (98-107); Creatinine, Serum 0.86 mg/dL (0.70-1.30); EST Glomerular Filtration Rate 93 mL/min (>60); Est Glom Filt Rate - Afr Amer 113 mL/min (>60); Estimated Creatinine Clearance 91.62 ml/min; Glucose 84 mg/dL (74-106); Lipase 149 U/L (73-393); Potassium 3.8 mmol/L (3.5-5.1); Sodium Level 140 mmol/L (136-145); Troponin-I HS 9 pg/mL (3.0-78.0)
--- NOTE | 2021-02-22 16:21 | EDS_ITS ---
HPI History of Present Illness Chief Complaint: Chest Pain Informant: patient Narrative Narrative: 71-year-old male presents the emergency room with anterior lower midline chest pain. Patient states that he has had this off and on over the past couple weeks but today has been constant since around ten. Patient was able to go bow hunting this morning and did not have any difficulty walking to his tree stand or from his tree stand. Patient denies any nausea shortness of breath. He notes it is not particularly tender to the touch. No burping blood in the stool or dark stool. He does have a history of 4 cardiac stents. [facility] Medical History Acute gastritis without hemorrhage ADHD ASHD (arteriosclerotic heart disease) Benign neoplasm of colon BPH (benign prostatic hyperplasia) CTS (carpal tunnel syndrome) Depression Dyslipidemia Empyema without mention of fistula Enthesopathy of hip region Esophagitis Fracture, ribs Heterozygous MTHFR mutation [id number] History of shingles Hypertension Hypogonadism Insomnia Myalgia and myositis, unspecified Spinal stenosis Testicular lesion Vitamin D deficiency Home Medications aspirin 81 mg PO DAILY@0800 10/26/13 [History Last Taken Unknown] cholecalciferol (vitamin D3) 1,000 unit PO DAILY 02/01/18 [History Last Taken Unknown] ezetimibe 10 mg PO DAILY 02/01/18 [History Last Taken Unknown] multivitamin 1 ea PO DAILY 02/01/18 [History Last Taken Unknown] omega-3 fatty acids-fish oil 1 ea PO BID 02/01/18 [History Last Taken Unknown] folic acid-vit B6-vit B12 0.8 mg-50 mg-100 mcg tablet 1 tab PO DAILY 12/12/18 [History Last Taken Unknown] propranolol 10 mg tablet 10 mg PO BID tab 12/12/18 [History Last Taken Unknown] vitamin B complex 1 tab PO DAILY 12/12/18 [History Last Taken Unknown] sertraline [Zoloft] 50 mg PO DAILY 02/22/21 [History Last Taken Unknown] Allergy/AdvReac Type Severity Reaction Status Date / Time metoprolol Allergy Unknown Verified 02/22/21 15:30 Surgical History H/O heart artery stent History of carpal tunnel surgery of right wrist History of colonoscopy History of hernia repair History of lumbar discectomy History of prostatectomy History of sinus surgery History of vasectomy right lung scrapping Social History Smoking Status: Former smoker Tobacco: How many years used: 8 how long ago did patient quit smokin, 1ppd second hand exposure: Yes ROS ROS ED Constitutional Constitutional ED: Denies chills or weight loss Eyes Eyes: Denies change in vision or diplopia ENT ENT ED: Denies ear pain, rhinorrhea or sore throat Cardiovascular Cardiovascular: Reports chest pain; Denies orthopnea, palpitations or racing heartbeat Respiratory/Chest Respiratory/Chest: Denies cough, dyspnea or orthopnea Gastrointestinal Gastrointestinal: Denies abdominal pain, diarrhea, nausea or vomiting Genitourinary Genitourinary ED: Denies dysuria, hematuria or urinary frequency Musculoskeletal Musculoskeletal: Denies arthralgias or myalgias Integumentary Denies abscess or rash Neurologic Neurologic: Denies headache(s) or weakness Psychiatric Psychiatric: Denies anxiety, depression, suicidal ideation or suicidal thoughts Endocrine Endocrinology: Denies polydipsia, polyphagia or polyuria Allergic/Immunologic Allergic/Immunologic ED: Denies mouth swelling, tongue swelling or urticaria EXAM Physical Exam Const Vital Signs: 02/22/21 15:30 02/22/21 15:40 02/22/21 15:43 Temperature 96.7 F L Temperature Source Temporal Pulse Rate 63 64 Respiratory Rate 15 12 Respiratory Effort Normal Non-Labored Respiratory Pattern Normal Blood Pressure 150/88 H Blood Pressure Mean 108 Pulse Ox 97 96 Oxygen Delivery Method Room Air Room Air Positive well nourished and well developed General Appearance ED: well developed HEENT Reports normocephalic, head/scalp atraumatic, TM's clear and moist mucous membranes atraumatic Tympanic Membrane ED: Yes TM's clear Eyes PERRL and EOMs intact bilaterally Neck no lymphadenopathy, supple and no JVD Resp normal respiratory effort and clear to auscultation bilaterally Cardio regular rate, regular rhythm and no murmurs GI normal to inspection, nondistended, normoactive bowel sounds and non-tender Palpation: soft Back/Spine no CVA tenderness and normal ROM Extremity normal to inspection General Extremety ED: Negative for edema General Extremity: Negative for edema Neuro oriented x3 and CN's II-XII intact bilaterally Sensorium / Orientation: alert Motor Exam: strength 5/5 throughout Psych mental status grossly normal Mood & Affect: Negative for depressed or tearful Skin no rashes or lesions noted and no wounds Heart Score History: Slightly/Non-Suspicious ECG: Normal Age: >/= 65 years Risk Factors: >/= 3 Risk Factors or History of CAD Troponin: </= Normal Limit Score: 4 MDM MDM MDM Narrative Medical decision making narrative: CBC BMP liver and lipase test were essentially negative. His troponin high-sensitivity is 9. His EKG does not show anything acute. My interpretation of the chest x-ray is no acute process. Patient's symptoms was improved with a GI cocktail. I recommend he start his antacid medicine which he is no longer taking. Follow-up with primary care. At this point patient will be discharged home. Lab Data Attestation: I reviewed the patient's lab results. Labs: Laboratory Results - last 24 hr 02/22/21 02/22/21 02/22/21 15:38 15:38 15:38 WBC 5.5 RBC 4.53 L Hgb 13.8 Hct 40.6 MCV 89.6 MCH 30.5 MCHC 34.0 RDW Std Deviation 42.1 RDW Coeff of Anayeli 12.8 Plt Count 282 MPV 9.6 Immature Gran % (Auto) 0.200 Neut % (Auto) 53.6 Lymph % (Auto) 26.4 [place] % (Auto) 12.9 H Eos % (Auto) 4.5 Baso % (Auto) 2.4 H Absolute Neuts (auto) 3.0 Absolute Lymphs (auto) 1.46 Nucleated RBC % 0 Sodium 140 Potassium 3.8 Chloride 107 Carbon Dioxide 26.0 Anion Gap 7 BUN 19 H Creatinine 0.86 Estim Creat Clear Calc 91.62 Est GFR (MDRD) Af Amer 113 Est GFR (MDRD) Non-Af 93 BUN/Creatinine Ratio 22.0 H Glucose 84 Calcium 9.6 Total Bilirubin 0.30 Direct Bilirubin 0.08 AST 39 H ALT 34 Alkaline Phosphatase 57 Troponin I High Sens 9 Total Protein 7.3 Albumin 4.0 Globulin 3.3 Lipase 149 Radiography Diagnostic Testing: Clinical Impression(s) from Imaging Studies Chest X-Ray 02/22/21 15:53 IMPRESSION: No airspace consolidation or pleural effusion. Electronically Signed: Jd Wong MD (Brooks) at 16:27 EDT , Service support , EKG Initial EKG: Attestation: I personally reviewed and interpreted this EKG as follows: Comments: Normal sinus rhythm with a ventricular rate of 62 bpm Discharge Plan Triage Chief Complaint: Chest Pain ED Provider: Chris Carpenter Dx/Rx/DC Orders Clinical Impression: Chest pain Instructions: ED Chest Pain, Uncertain Cause Prescriptions: No Action vitamin B complex [B Complex-Vitamin B12] Tablet 1 tab PO DAILY RF: 0 folic acid-vit B6-vit B12 0.8 mg-50 mg-100 mcg tablet 0.8-50-100 mg-mg-mcg tablet 1 tab PO DAILY RF: 0 propranolol 10 mg tablet 10 mg PO BID RF: 0 aspirin 81 MG tablet,chewable 81 mg PO DAILY@0800 RF: 0 multivitamin 1 EACH tablet 1 ea PO DAILY RF: 0 ezetimibe 10 MG tablet 10 mg PO DAILY RF: 0 omega-3 fatty acids-fish oil 1 EACH capsule 1 ea PO BID RF: 0 cholecalciferol (vitamin D3) 1,000 UNIT capsule 1,000 unit PO DAILY RF: 0 sertraline [Zoloft] 50 mg Tablet 50 mg PO DAILY RF: 0 Primary Care Provider: Aquiles Rosado Referrals: Aquiles Rosado MD [Primary Care Provider] - 3-5 Days if not improving Disposition Disposition: Home, Self Care
[2021-02-22 16:25] LABS: AST(SGOT) 39 U/L (15-37); Alanine Aminotransfer ALT/SGPT 34 U/L (16-61); Alkaline Phosphatase 57 U/L (45-117); Bilirubin, Direct 0.08 mg/dL (0.00-0.30); Globulin 3.3 g/dL (2.2-4.2); Protein, Total 7.3 g/dL (6.4-8.2)
[2021-02-22 16:35] VITALS: BP 145/79; PULSE 76; RESP 16; O2SAT 97
== END 2021-02-22 16:36 | disposition home or self-care (01) ==
PROVIDERS: Emergency Provider Emergency Medicine; PCP Family Medicine
DX: R07.9 Chest pain, unspecified (principal); I25.10 Atherosclerotic heart disease of native coronary artery without angina pectoris; F32.A Depression, unspecified; E78.5 Hyperlipidemia, unspecified; I10 Essential (primary) hypertension; Z95.5 Presence of coronary angioplasty implant and graft; Z79.899 Other long term (current) drug therapy; Z87.891 Personal history of nicotine dependence
CPT/HCPCS: 71045; 80048; 80076; 83690; 84484; 85025; 93005; 99285; A4216

== ENCOUNTER 2021-06-11 13:00 | Outpatient (RCR) | payer MEDICARE, OTHER, SELFPAY ==
--- NOTE | 2021-05-28 12:56 | HP.PTEVAL_ITS ---
Patient's Visit Information LILIYA BOCANEGRA is a 71 year old M referred to Physical Therapy by PETER MARVIN with a diagnosis of LOW BACK PAIN WITH SCIATICA ,SCIATICA LATERAL BACK PAIN UNSPECIFIED. Date of Evaluation: 05/28/21 Physical Therapist: Tushar Hinson, PT, Cert MDT, OCS - Visit Plan Frequency: 1-2x /Week Duration: 4 Weeks Plan: PT INTERVENTIONS LE FLEXABLITY ,DLS -ABD/BACK,POSTURAL EX'S AND FUNCTIONAL STRENGTHNEING - Subjective This 71 y/o male presents to physical therapy with lumbar radicular symptoms. Patient stated lumbar pain occurred when dragging last deer noticed increase right lumbar. Patient had intermittent right glut hamstring and another incident right thigh and tibia . These symptoms have been intermittent but overall getting better. Patient has been doing a lot of stretching. Seen DR noa DARDEN ,x- rays -.Mild symptoms in these areas. Denies paresthesia/tingling . Coughing/sneezing -. Bowel/bladder-. Sleeping better but initially ,symptoms was affects sleeping. Patient has lumbar fusion x1 and lumbar discectomy/laminectomy x3 ,cervical fusion x2,patial right knee ,bilateral RTC repair. Patient goals to decrease pain. Patient pain lumbar affects quality of function. SOCAIL: . 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 GAIT: mild forward posture reciprocal pattern. PALAPTION: reciprocal pattern. SYMMTRIES: align. PALPATION: tender L-S spine. MMT: quads/hams 4/5 ,hip flexion /abduction 4-/5,ankle. LUMBAR ROM: flexion mod loss, extension min/mod loss ,side glides min loss. FLEXABLITY: hamstrings mod tight - Special Tests L/S Slump test left side: Negative L/S Slump test right side: Negative L/S Left Straight Leg Raise: Negative L/S Right Straight Leg Raise: Negative Lumbar Standing: Flexion - Mechanical Response: No effect Lumbar Standing: Flexion - Symptoms During Testing: No effect Lumbar Standing: Flexion - Symptoms After Testing: No effect Lumbar Standing: Extension - Mechanical Response: No effect Lumbar Standing: Extension - Symptoms During Testing: No effect Lumbar Standing: Extension - Symptoms After Testing: No effect Lumbar Standing: Right Side Glides - Mechanical Response: No effect Lumbar Standing: Right Side [place] - Symptoms During Testing: No effect Lumbar Standing: Right Side [place] - Symptoms After Testing: No effect Lumbar Standing: Left Side [place] - Mechanical Response: No effect Lumbar Standing: Left Side [place] - Symptoms During Testing: No effect Lumbar Standing: Left Side [place] - Symptoms After Testing: No effect - Balance/Special Test Scores Oswestry Low Back Score: 17 - Goals Goal 1:: Patient to be I with HEP for back pain Goal Time Frame: 4-6 Weeks Goal 2:: Patient improve posture and body mechanics 80% of the the time. Goal Time Frame: 4-6 Weeks Goal 3:: Patient to improve lumbar ROM function of recovery to put on shoes Goal Time Frame: 4-6 Weeks Goal 4:: Patient to improve lumbar radiculopathy 50% improvement to decrease symptoms for function. Goal Time Frame: 4-6 Weeks Goal 5:: Patient to improve back owestry score by 5 points to improve QOL Goal Time Frame: 4-6 Weeks - Rehabilitation Potential Physical Therapy Diagnosis: This patient lumbar radiculopathy from increase activity with hunting causing radicular symptoms with walking and ADLS' with patient has complexity issues with h/o lumbar surgeries x5 thus benefit from skilled PT Rehabilitation Potential: Good - Anticipated Interventions Patient/Client Instruction: Educate patient on: Condition, Plan of Care For the Purpose of:: To decrease pain, To increase ROM, To improve muscle performance and motor function, To improve ability to perform ADL's, To increase tolerance to activity/condition/position, To improve ability of physical actions for home/community/work/leisure, To improve health of tissue, To decrease soft tissue restriction, To increase flexibility/ROM, To prevent re-injury Therapeutic Exercise to Include: Strength training, Power training, Endurance training, Body mechanics, Postural training, Flexibilty training, Dynamic Lumbar Stabilization For the Purpose of:: To decrease pain, To increase ROM, To improve muscle performance and motor function, To improve ability to perform ADL's, To increase tolerance to activity/condition/position, To improve ability of physical actions for home/community/work/leisure, To improve health of tissue, To decrease soft tissue restriction, To increase flexibility/ROM TENS: Yes IF ES: Yes Cryotherapy (ice pack, ice massage): Yes Thermo therapy (hot pack): Yes Ultrasound (thermal/non thermal): Yes For the Purpose of:: To decrease pain, To increase ROM, To improve nutrient delivery to tissue, To increase oxygenation perfusion, To improve health of tissue, To decrease soft tissue restriction Thank you for the opportunity to evaluate your patient. For Medicare and Medicare HMO plans, please review the plan of care and approve it. It will need to be FAXED BACK to us at [phone] for Medicare purposes. For Medicare only, by signing this I certify the plan of care. Please let me know if there are questions or concerns regarding this plan of care. Physician Signature: Date:
--- NOTE | 2021-06-11 13:55 | HP.PTDCSUM ---
It has been my pleasure to treat LILIYA BOCANEGRA referred by PETER MARVIN, with the diagnosis of LOW BACK PAIN WITH SCIATICA ,SCIATICA LATERAL BACK PAIN UNSPECIFIED for a total of 3 visit(s). Discharge Date: 06/11/21 Please see the following information for a summary of their discharge status. Subjective: Doing well ..ready for d/c Right Lower Extremity Pain Intensity (Out of 10): 0 % Improvement: 100 Objective/Function: POSTURE: mild forward posture. GAIT: reciprocal pattern. MMT: quads/hams 4/5, 4/5 hip. LUMBAR ROM: flexion mod loss, extension min loss ,side glides. FLEXABILITY: hams flexibility mod tight Goal 1:: Patient to be I with HEP for back pain Goal Progress: Goal Met Goal 2:: Patient improve posture and body mechanics 80% of the the time. Goal Progress: Goal Met Goal 3:: Patient to improve lumbar ROM function of recovery to put on shoes Goal Progress: Goal Met Goal 4:: Patient to improve lumbar radiculopathy 50% improvement to decrease symptoms for function. Goal Progress: Goal Met Goal 5:: Patient to improve back owestry score by 5 points to improve QOL Goal Progress: Goal Met Plan: D/C TO HOME Discharge Comments: HEP If there are questions or concerns regarding this patient's physical therapy, please feel free to call me at [phone]. Thank you for the referral of this patient. Sincerely, Tushar Hinson, PT, Cert MDT, OCS Balance/Gait/Functional tests - Balance/Special Test Scores Oswestry Low Back Score: 0
== END 2021-06-11 19:00 | disposition home or self-care (01) ==
LOC: PT 13:00
PROVIDERS: PCP Family Medicine
DX: M54.40 Lumbago with sciatica, unspecified side (principal); M54.50 Low back pain, unspecified
CPT/HCPCS: 97110; 97162

== ENCOUNTER 2021-07-11 07:16 | Outpatient (CLI) | payer MEDICARE, OTHER, SELFPAY ==
--- NOTE | 2021-07-11 07:19 | MRI_ITS ---
STUDY: MRI BRAIN WITH AND WITHOUT CONTRAST (ATTENTION INTERNAL AUDITORY CANALS - I.A.C.''s) REASON FOR EXAM: Male, 71 years old. L TINNITUS, H/O MENINGIOMA TECHNIQUE: Standardized multiplanar fat and water weighted pulse sequences were obtained. IV 18mL DOTAREM was administered for the contrast portion of the examination. COMPARISON: None. FINDINGS: Normal bilateral temporal bones. Normal bilateral internal auditory canals. There is no demonstrated intracanalicular or cisternal vestibular schwannoma (acoustic neuroma). There is no enhancement of the bilateral VIIth or VIIIth cranial nerves. Normal bilateral cochlea, vestibules and semicircular canals. Normal size of the ventricles and extra-axial spaces for the patient''s age. Normal white matter tracts of the supratentorial brain. Normal bilateral basal ganglia. Normal thalami. Normal flow voids within the major intracranial circulation suggesting patency by spin echo criteria. Normal venous enhancement. There is no enhancing intra-axial or extra-axial abnormality. There is no extra-axial fluid accumulation. Normal sella turcica, pituitary gland, infundibular stalk, optic chiasm and hypothalamus. Normal tectal plate and pineal gland. Normal midbrain, celeste and medulla. Normal cerebellum. Normal basal cisterns. No demonstrated orbital abnormality, within the constraints of a routine brain study. Normal visualized paranasal sinuses. Normal calvarium and skull base. Normal visualized soft tissue structures. Normal visualized upper cervical spine. MRI/Brain W/WO Contrast IMPRESSION: Normal unenhanced and enhanced MRI of the bilateral internal auditory canals (I.A.C''s). COMMENT: Right-sided craniotomy defect without suspicious enhancing intra-axial or extra-axial mass. Electronically Signed: Ignacio Colorado MD at 11:06 EST ,
[2021-07-11 07:55] LABS: CREATININE FINGERSTICK < 0.6 mg/dL (0.70-1.30); EGFR FINGERSTICK > 60.0000 mL/min (>60)
== END 2021-07-11 23:59 | disposition home or self-care (01) ==
LOC: MRI 07:17
PROVIDERS: PCP Family Medicine; Referring Provider Otolaryngology; Visit Provider Otolaryngology
DX: H93.12 Tinnitus, left ear (principal); Z86.011 Personal history of benign neoplasm of the brain
CPT/HCPCS: 70553; A9575

== ENCOUNTER 2022-07-29 11:30 | Outpatient (RCR) | payer MEDICARE, OTHER, SELFPAY ==
--- NOTE | 2022-07-09 13:43 | HP.PTEVAL_ITS ---
Patient's Visit Information LILIYA BOCANEGRA is a 72 year old M referred to Physical Therapy by AUSTIN MCCORMACK with a diagnosis of LATERAL EPICONDYLITIS L ELBOW. Date of Evaluation: 06/23/22 Physical Therapist: Cristina Bragg PT, Cert MDT - Visit Plan Frequency: 2-3x /Week Duration: 4-6 Weeks Plan: 1. Stretching and flexibility exercises to help the tendon heal completely and avoid long-term pain. 2. Strengthening exercises to help rebuild tendon strength and avoid future injuries. 3. Ultrasound heat therapy to improve blood circulation, which may aid the healing process. 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 boo-box OWNED BY HE AND HIS . Present symptoms: MILD AMOUNTS OF PAIN AND STIFFNESS LEFT ELBOW. NO NUMBNESS OR TINGLING. MAYBE SOME WEAKNESS. MOSTLY RIGHT HANDED. Present since: ELBOW ISSUES ON AND OFF FOR YEARS BUT NOTHING DRAMATIC. LAST FALL 2021 THE LEFT ELBOW PAIN GOT WORSE AND CLICKING DEVELOPED. REDUCED ACTIVITY. WENT TO DR. MARVIN AND GOT MRI. DX'D WITH PARTIALLY TORN TENDON IN L ELBOW AND SOME MILD ARTHRITIS. Pain Scale: Worst - 3/10 Least - 1/10. Currently: /. Commenced as a result of: NO APPARENT REASON OTHER THAN USING ARM MORE FOR BOW HUNTING. Symptoms at onset: LOCALIZED L ELBOW PAIN. Worse: ANY KIND OF ACTIVITY. Better: REST. Disturbed sleep: NOT DUE TO ELBOW PAIN. Previous history/Previous treatment: PAIN BUT NO TREATMENT THAT PATIENT CAN RE-CALL. POSSIBLE PT. This episode: PRP INJECTION 10 DAYS AGO WITH BENEFIT PER PATIENT REPORT. Imaging: MRI - SEE ABOVE. PMH/Recent major surgery: BENIGN BRAIN TUMOR SURGICALLY REMOVED. 3 NECK SURGERIES. 4 LOW BACK SURGERIES. 2007 COMPLICATIONS OF PNEUMONIA. CTR'S. L ROTATOR CUFF REPAIR. SEE FURTHER HISTORY BELOW. OTHER: PATIENT REPORTS SURGERY ON HIS L ELBOW WAS NOT RECOMMENDED. PATIENT DENIES ANY CURRENT PHYSICIAN RESTRICTIONS. - Objective THIS PATIENT AMBULATES INDEP'LY INTO PT WITH NO GROSS DEVIATIONS NOTED. HE IS PLEASANT AND COOPERATIVE TO WORK WITH AND FOLLOWS COMMANDS WELL. LEFT ELBOW, FOREARM, WRIST AND HAND ROM IS WFL AND PATIENT DENIES PAIN WITH TESTING. LEFT SHLD ROM IS WFL AND PATIENT DENIES PAIN WITH TESTING. LEFT ELBOW STRENGTH IS ALSO GROSSLY 5/5. RIGHT IMPLEMENTATION COORDINATOR = 110 LBS AND LEFT 105 LBS. DENEIS PAIN WITH STRENGTH TESTING HOWEVER THERE IS MILD TENDERNESS WITH DEEP PALPATION OF THE LATERAL ELBOW IN THE REGION OF THE LATERAL EPICONDYLE AND OLECRANON PROCESS. TREATMENT: US AT 1.3 W/CM2, 3MZ, 50% X 8 MIN TO L LATERAL ELBOW. - Balance/Special Test Scores Quick DASH Score: 22.7250 - Goals Goal 1:: DECREASE C/O L ELBOW PAIN Goal Time Frame: 4-6 Weeks Goal 2:: RESTORE FUNCTIONAL STRENGTH OF LEFT UE TO ALLOW FOR SAFE RETURN TO PRIOR ACTIVITIES Goal Time Frame: 4-6 Weeks Goal 3:: PATIENT WILL BE INDEP WITH A HEP FOR CONTINUED IMPROVEMENT ONCE FORMAL PHYSICAL THERAPY CONCLUDES. Goal Time Frame: 4-6 Weeks - Anticipated Interventions Patient/Client Instruction: Educate patient on: Condition, Plan of Care, Risk Factors For the Purpose of:: To improve self management Therapeutic Exercise to Include: Strength training For the Purpose of:: To decrease pain, To improve muscle performance and motor function, To increase tolerance to activity/condition/position, To improve ability of physical actions for home/community/work/leisure Ultrasound (thermal/non thermal): Yes For the Purpose of:: To decrease pain, To improve nutrient delivery to tissue Thank you for the opportunity to evaluate your patient. For Medicare and Medicare HMO plans, please review the plan of care and approve it. It will need to be FAXED BACK to us at [phone] for Medicare purposes. For Medicare only, by signing this I certify the plan of care. Please let me know if there are questions or concerns regarding this plan of care. Physician Signature: Date:
--- NOTE | 2022-07-29 12:14 | HP.PTDCSUM ---
It has been my pleasure to treat LILIYA BOCANEGRA referred by DAVID MCCORMACK, with the diagnosis of LATERAL EPICONDYLITIS L ELBOW for a total of 7 visit(s). Discharge Date: 07/29/22 Please see the following information for a summary of their discharge status. Subjective: Doing great . % Improvement: 100 Objective/Function: NEURO: intact. AROM: elbow 0-140 degrees ,. MMT: ELBOW WRIST/EXTENSION/FORERAM 4/5 NO PAIN. STRENGTH: 90-# Goal 1:: DECREASE C/O L ELBOW PAIN Goal Progress: Goal Met Goal 2:: RESTORE FUNCTIONAL STRENGTH OF LEFT UE TO ALLOW FOR SAFE RETURN TO PRIOR ACTIVITIES Goal Progress: Goal Met Goal 3:: PATIENT WILL BE INDEP WITH A HEP FOR CONTINUED IMPROVEMENT ONCE FORMAL PHYSICAL THERAPY CONCLUDES. Goal Progress: Goal Met Goal Progress: Goal Met Plan: D/C TO HEP Discharge Comments: HEP If there are questions or concerns regarding this patient's physical therapy, please feel free to call me at [phone]. Thank you for the referral of this patient. Sincerely, Tushar Hinson, PT, Cert MDT, OCS Balance/Gait/Functional tests - Balance/Special Test Scores Quick DASH Score: 22.7254
== END 2022-07-29 19:00 | disposition home or self-care (01) ==
LOC: PT 11:30
PROVIDERS: PCP Family Medicine
DX: M77.12 Lateral epicondylitis, left elbow (principal)
CPT/HCPCS: 97035; 97110; 97162

== ENCOUNTER → 2023-01-21 | Outpatient (CLI) | payer MEDICARE, OTHER, SELFPAY | END | disposition home or self-care (01) | PROVIDERS: PCP Family Medicine; Referring Provider Otolaryngology; Visit Provider Otolaryngology | DX: J01.90 Acute sinusitis, unspecified (principal) | CPT/HCPCS: 87070; 87205 ==

== ENCOUNTER → 2023-12-29 | Outpatient (CLI) | payer MEDICARE, OTHER, SELFPAY | END | disposition home or self-care (01) | LOC: LABSPEC 15:11 | PROVIDERS: PCP Family Medicine; Referring Provider Otolaryngology; Visit Provider Otolaryngology | DX: J32.9 Chronic sinusitis, unspecified (principal) | CPT/HCPCS: 87070; 87205 ==